=== PATIENT | female | born 1985 | race Caucasian/White ===

== ENCOUNTER 2022-11-12 15:09 | Emergency (ER) | payer BC, OTHER, SELFPAY ==
[2022-11-12] VITALS (8 sets, daily range): BP systolic 99–123; BP diastolic 54–66; PULSE 74–101; RESP 16–26; TEMP 36.7; O2SAT 97–100; BMI 55.6
--- NOTE | 2022-11-12 15:16 | ECG_ITS ---
The [facility] Test Date: 2022-11-12 Pat Name: TALHA SINGLETON Department: Room: - Gender: Female [employer]: : 1985 Requested By: [id number] Order Number: [id number] Reading MD: CORIE KOVACS Measurements Intervals [place] Rate: 91 P: 69 VT: 144 QRS: 77 QRSD: 96 T: -30 QT: 308 QTc: 357 Interpretive Statements 1100 Sinus rhythm 2420 RSR (QR) in lead V1/V2, consistent with right ventricular conduction delay 4068 Nonspecific [place] abnormality 8102 Low QRS voltage in chest leads 8305 Short QTc interval 9150 abnormal ECG No previous ECG available for comparison Electronically Signed On 11-13-2022 7:10:02 EDT by CORIE KOVACS
--- NOTE | 2022-11-12 15:18 | ED_ITS ---
HPI - General Adult General Chief complaint: Skin/Abscess/Foreign Body Stated complaint: ALLERGIC REACTION Time Seen by Provider: 11/12/22 15:16 History of Present Illness HPI narrative: patient is a 37-year-old female presents to the emergency department by ambulance for the evaluation of a bee sting ALLERGY. Patient was stung by a bee approximately thirty minutes ago in the back of the left ankle. She states she has no known previous bee sting ALLERGY. EMS was contacted and they gave the patient 0.5 mg of epinephrine, 125 mg IV Solu-Medrol, 50 mg IV Benadryl. Patient arrives with improvement of redness although she is jittery and shaking on arrival. She states she still feels tightness in her chest. She has not had difficulty breathing or wheezing. She is not concerned for . Related Data Home Medications Medication Instructions Recorded Confirmed buspirone 5 mg tablet 5 mg PO BID 11/12/22 11/12/22 hydroxyzine HCl 10 mg tablet 10 mg PO TID PRN anxiety 11/12/22 11/12/22 risperidone 0.25 mg tablet 0.25 mg PO QPM 11/12/22 11/12/22 risperidone 0.5 mg tablet 0.5 mg PO QPM 11/12/22 11/12/22 Previous Rx's Medication Instructions Recorded famotidine 20 mg tablet (Pepcid) 20 mg PO BID #10 tabs 11/12/22 hydroxyzine HCl 25 mg tablet 25 mg PO Q6H PRN itching #20 tabs 11/12/22 methylprednisolone 4 mg tablets in See Rx Instructions .Route 11/12/22 a dose pack (Medrol (Jose David)) .COMPLEX #21 ea ondansetron 4 mg disintegrating 4 mg PO Q6H PRN nausea and 11/12/22 tablet vomiting #12 tabs Allergies Allergy/AdvReac Type Severity Reaction Status Date / Time bee venom protein (honey bee) Allergy Severe Verified 11/12/22 15:20 levofloxacin [From Levaquin] Allergy Severe Verified 11/12/22 15:12 Review of Systems ROS Constitutional Denies: fever or chills Ears, nose, mouth, and throat Denies: throat pain or neck pain Cardiovascular Reports: chest pain Respiratory Denies: shortness of breath, cough or wheezing Gastrointestinal Denies: nausea or vomiting Genitourinary Denies: painful urination Integumentary/Breast Reports: rash and redness Allergic/Immunologic Reports: hives Exam Narrative Exam Narrative: Gen.: Awake, alert, in no distress, mildly shaky and anxious Head: Normocephalic, atraumatic ENT: Moist mucous membranes, airway widely open and patent with uvula midline. No trismus or drooling. Clear speech. No noted swelling of the lips or tongue Respiratory: No respiratory distress, lungs clear bilaterally, no wheezing or stridor Cardio: Regular rate and rhythm Gastrointestinal: Abdomen is soft, nondistended and nontender to palpation Extremities: Moves extremities equally, bee sting noted to the left posterior ankle with mild surrounding erythema Psych: Normal mood and affect Neuro: No focal neuro deficit Skin: Warm, dry, intact; no significant hives noted although the patient does have mild swelling of the eyelids Constitutional Vital Signs, click to edit/add: Last Vital Signs Temp 98.1 F 11/12/22 15:12 Pulse 74 11/12/22 16:30 Resp 18 11/12/22 16:30 BP 99/54 L 11/12/22 16:30 Pulse Ox 97 11/12/22 16:30 O2 Del Method Room Air 11/12/22 15:12 Course Vital Signs Vital signs: Vital Signs Temperature 98.1 F 11/12/22 15:12 Pulse Rate 101 H 11/12/22 15:12 Respiratory Rate 20 11/12/22 15:12 Blood Pressure 118/64 11/12/22 15:12 Pulse Oximetry 100 11/12/22 15:12 Oxygen Delivery Method Room Air 11/12/22 15:12 Temperature 98.1 F 11/12/22 15:12 Pulse Rate 74 11/12/22 16:30 Respiratory Rate 18 11/12/22 16:30 Blood Pressure 99/54 L 11/12/22 16:30 Pulse Oximetry 97 11/12/22 16:30 Oxygen Delivery Method Room Air 11/12/22 15:12 Medical Decision Making [facility] Narrative Medical decision making narrative: patient was treated with IV fluids, Pepcid and was kept on cardiac monitoring for over ninety minutes on arrival to the Emergency Room. She had improvement of tachycardia, no worsening of tachycardia or shortness of breath. She had improvement of her urticaria and facial swelling. She does have minimal itching and eyelid edema at time of discharge but overall is improved. She has normal blood pressure and heart rate at time of discharge. She will be prescribed hydr oxyzine, Medrol Dosepak, Pepcid, Zofran for home. She is encouraged follow-up closely with her PCP and return to the Emergency Room if symptoms change or worsen. Medical Records Medical records reviewed: Yes I reviewed the patient's medical records ECG Data Attestation: I personally reviewed and interpreted this ECG as follows: (normal sinus rhythm at a rate of ninety-one, no acute ST elevation or ectopy. EKG reviewed by attending physician.) Discharge Plan Discharge Chief Complaint: Skin/Abscess/Foreign Body Clinical Impression: Allergic reaction to bee sting, Urticaria Patient Disposition: Home, Self-Care Time of Disposition Decision: 16:42 Condition: Good Prescriptions / Home Meds: New methylprednisolone [Medrol (Jose David)] 4 mg tablets,dose pack See Rx Instructions .ROUTE .COMPLEX Qty: 21 0RF Rx Instructions: Taper as directed hydroxyzine HCl 25 mg tablet 25 mg PO Q6H PRN (Reason: itching) Qty: 20 0RF famotidine [Pepcid] 20 mg tablet 20 mg PO BID Qty: 10 0RF ondansetron 4 mg tablet,disintegrating 4 mg PO Q6H PRN (Reason: nausea and vomiting) Qty: 12 0RF No Action buspirone 5 mg tablet 5 mg PO BID hydroxyzine HCl 10 mg tablet 10 mg PO TID PRN (Reason: anxiety) risperidone 0.25 mg tablet 0.25 mg PO QPM risperidone 0.5 mg tablet 0.5 mg PO QPM Instructions: Urticaria (ED), Insect Bite or Sting (ED) Stand Alone Forms: Portal Instructions Referrals: Physical Therapy,Template, PT [Primary Care Provider] - 1 week
[2022-11-12] MEDS: FAMOTIDINE/PF 20 MG/2 ML VIAL IV (15:23)
--- NOTE | 2022-11-12 15:30 | PC.NURSE ---
HEAD TO TOE RASH/HIVES S/P WITTNESSED BEE STING. EPI GIVEN BY EMS
== END 2022-11-12 16:59 | disposition home or self-care (01) ==
PROVIDERS: Emergency Provider Emergency Medicine
DX: T63.441A Toxic effect of venom of bees, accidental (unintentional), initial encounter (principal); L50.9 Urticaria, unspecified; Z79.899 Other long term (current) drug therapy
CPT/HCPCS: 93005; 96374; 99285

== ENCOUNTER 2023-02-05 08:03 | Outpatient (OUT) | payer OTHER, SELFPAY ==
--- NOTE | 2023-02-05 08:05 | US_ITS ---
The [address] [address] Patient Name: TALHA SINGLETON MRN: [id number] date: 1985 Sex: F Assigned Patient Location: Current Patient Location: [place] Accession/Order Number: [id number] Exam Date: 02/05/2023 08:05 Report Date: 02/05/2023 09:48 At the request of: VELMA RODGERS Procedure: US pelvis w/ transvaginal EXAM: Pelvic ultrasound HISTORY: . LLQ PAIN, DYSURIA . COMPARISON: None. TECHNIQUE: Transabdominal and transvaginal scanning was performed FINDINGS: The uterus is absent. Right ovary measures 2.4 x 1.3 x 2.5 cm. Color-flow is noted. Resistive indexes 0.6. Follicles are noted. Left ovary measures 3.1 x 3.2 x 3.4 cm. Color-flow is noted. Resistive indexes 0.6. There is a 2.4 x 1.3 cm avascular complicated cyst within the left ovary. There is also a small amount of free fluid surrounding the left ovary. There are several bowel loops within the pelvis. US/US pelvis w/ transvaginal IMPRESSION: 1. Absent uterus. 2. Normal-appearing right ovary. 3. 2.4 x 1.3 cm avascular complicated cyst in the left ovary. Findings would be most consistent with a hemorrhagic cyst. Less likely would be an inflammatory mass or neoplasm. Clinical correlation is suggested. 4. Small amount of fluid surrounding the left ovary. Electronically authenticated by: REAL LOPEZ Date: 02/05/2023 09:48
== END 2023-02-05 08:04 | disposition home or self-care (01) ==
LOC: US 08:04
PROVIDERS: Visit Provider Obstetrics & Gynecology
DX: R10.2 Pelvic and perineal pain (principal); R30.0 Dysuria; N83.202 Unspecified ovarian cyst, left side
CPT/HCPCS: 76830; 76856

== ENCOUNTER 2023-05-10 08:57 | Outpatient (OUT) | payer OTHER, SELFPAY | END 2023-05-10 08:58 | disposition home or self-care (01) | LOC: PST 08:58 | PROVIDERS: Visit Provider Obstetrics & Gynecology | DX: Z01.818 Encounter for other preprocedural examination (principal); R10.2 Pelvic and perineal pain; R10.9 Unspecified abdominal pain ==

== ENCOUNTER 2023-05-23 06:12 | Day surgery (SDC) | payer OTHER, SELFPAY ==
[2023-05-10 09:28] VITALS: BP 105/66; PULSE 89; RESP 16; TEMP 36.3; O2SAT 95; BMI 26.5
[2023-05-23] VITALS (9 sets, daily range): BP systolic 95–118; BP diastolic 52–81; PULSE 58–86; RESP 14–18; TEMP 36.1–36.3; O2SAT 95–100; BMI 26.2
--- OUTSIDE RECORDS SUMMARY | 2023-05-23 06:15 | XMS_ITS | CCD ---
Author Name Unknown Address [address] [place] [address] Organization [facility] Care Team Providers Care Health Policy Nurse Name Role Phone MEMO WOOD Admitting Unavailable NINA, MEMO Attending Unavailable MEMO WOOD Consulting Unavailable JENNIFER, DR SAVANNAH Underwood Primary Care Unavailable KARASIK, DR ETIENNE Consulting Unavailable JENNIFER, DR SAVANNAH [place]wood Primary Care Unavailable CRYSTAL, DR ETIENNE Admitting Unavailable CRYSTAL, DR ETIENNE Attending Unavailable DARIA, DR COLBY Attending Unavailable DARIA, DR COLBY Admitting Unavailable TERESO, DR REAL Mccain Consulting Unavailable AMANDAESTANNABELLE, DR SAVANNAH Underwood Primary Care Unavailable DARIA, DR COLBY Consulting Unavailable PAM, TIBURCIO Consulting Unavailable Sumeet VÁSQUEZ Primary Care Physician SAVANNAH RODRIGUEZ Primary Care Physician [phone] JOHN HENSON Attending Unavailab Sumeet Barkley Referring Unavailable Lowell MAYS Admitting Unavailable Lowell MAYS Attending Unavailable Lowell MAYS Referring Unavailable Lowell MAYS Attending Unavailable JOHN HENSON Attending UnavailEamon Ya Attending Unavailab Eamon Del Cid Admitting Unavailab [facility] [place] Primary Care Unavailable Allergies Allergy Classification Reported Allergen(s) Allergy Type Date of Onset Reaction(s) Facility (2 sources) levoFLOXacin; Translations: [Levaquin] Drug Allergy 3 [facility] Repository (3 sources) Bee/Wasp/Ant venom; Translations: [Bee Stings] Propensity to adverse reactions to substance Swelling (finding) [facility] (2 sources) levoFLOXacin; Translations: [levofloxacin] Drug Allergy [facility] (1 source) levoFLOXacin Drug Allergy [facility] Repository Medications Current Medications Medication Drug Class(es) Dates Sig (Normalized) Sig (Original) busPIRone hydrochloride 7.5 mg oral tablet (2 sources) Start: 03-27-2023 busPIRone 7.5 mg oral tablet Refills(s) 0 Start Date: 03/27/23 Status: Ordered phenazopyridine hydrochloride 200 mg oral tablet (1 source) Start: 03-27-2023 End: 03-30-2023 Pyridium 200 mg Tab 200 mg = 1 tab(s), Oral, TIDPC, start taking following cystoscopy procedure, X 3 day(s), # 9 tab(s), Refills(s) 0, Pharmacy: [facility]/pharmacy #[id number], 157, cm, 03/27/23 10:11:00 EST, Height/Length Dosing, 68, kg, 03/27/23 10:11:00 EST, Weight Dosing Start Date: 03/27/23 Stop Date: 03/30/23 Status: Ordered risperiDONE 0.5 mg oral tablet (2 sources) Atypical Antipsychotic Start: 03-27-2023 take 1 tablet by mouth twice daily risperidone 0.5 mg Tab 0.5 mg = 1 tab(s), Oral, BID, # 180 tab(s), Refills(s) 0 Start Date: 03/27/23 Status: Ordered Completed/Discontinued Medications Medication Drug Class(es) Dates Sig (Normalized) Sig (Original) cephalexin 500 mg oral capsule (2 sources) Cephalosporin Antibacterial Start: 04-02-2023 take 1 capsule by mouth once daily Keflex 500 mg Cap 500 mg = 1 cap(s), Oral, BID, Take 1 cap day prior to procedure and 1 cap day of procedure - afterwards, # 2 cap(s), Refills(s) 0, Pharmacy: [facility]/pharmacy #[id number], 157, cm, 03/27/23 10:11:00 EST, Height/Length Dosing, 68, kg, 03/27/23 10:11:00 EST, Weight Dosing Start Date: 04/30/23 Status: Ordered Problems Active Problems Problem Classification Problem Date Documented Date Episodic/Chronic Abdominal pain (7 sources) Unspecified abdominal pain; Translations: [Pain in pelvis] Onset: 06-14-2021 Episodic Allergic reactions (2 sources) Allergic reaction; Translations: [Allergic Reaction] Onset: 11-26-2022 Episodic Anxiety disorders (4 sources) Anxiety disorder, unspecified; Translations: [ANXIETY DISORDER UNSPECIFIED] Onset: 11-30-2021 Chronic Biliary tract disease (2 sources) Gallstone 03-27-2023 Episodic Calculus of urinary tract (5 sources) History of calculus of kidney; Translations: [Personal history of urinary calculi] Onset: 03-27-2023 Episodic Genitourinary symptoms and ill-defined conditions (4 sources) Sensation as if bladder still full; Translations: [Feeling of incomplete bladder emptying] Onset: 03-27-2023 Episodic Immunizations and screening for infectious disease (1 source) Encounter for screening for human papillomavirus (HPV); Translations: [ENC SCREENING HUMAN PAPILLOMAVIRUS] Onset: 01-24-2022 Episodic Mood disorders (2 sources) Bipolar disorder 03-27-2023 Chronic Noninfectious gastroenteritis (2 sources) Colitis 03-27-2023 Episodic Other diseases of bladder and urethra (1 source) Detrusor overactivity; Translations: [Overactive bladder] Onset: 03-27-2023 Chronic Other diseases of bladder and urethra (2 sources) Overactive bladder 03-27-2023 Chronic Other ear and sense organ disorders (2 sources) Hearing loss 03-27-2023 Chronic Other female genital disorders (1 source) Other specified noninflammatory disorders of vagina; Translations: [OTH SPEC NONINFLAMMATORY D/O VAGINA] Onset: 01-24-2022 Episodic Other screening for suspected conditions (not mental disorders or infectious disease) (4 sources) Encounter for screening for malignant neoplasm of cervix; Translations: [ENC SCREENING MALIG NEOPLASM CERV] Onset: 01-23-2022 Episodic Ovarian cyst (2 sources) Cyst of ovary 03-27-2023 Episodic Screening and history of mental health and substance abuse codes (3 sources) H/O: Disorder; Translations: [Personal history of nicotine dependence] Onset: 03-27-2023 Episodic Substance-related disorders (2 sources) Nicotine dependence, other tobacco product, uncomplicated; Translations: [Nicotine dependence, cigarettes, uncomplicated] Onset: 06-15-2021 Chronic Unclassified (2 sources) Finding of sensation of bladder 03-27-2023 Viral infection (2 sources) Genital herpes simplex 03-27-2023 Chronic Past or Other Problems Problem Classification Problem Date Documented Da te Episodic/Chronic Other aftercare (1 source) Other longterm (current) drug therapy; Translations: [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] Onset: 06-15-2021 Episodic Residual codes; unclassified (1 source) Acquired absence of both cervix and uterus; Translations: [ACQUIRED ABSENCE BOTH CERVIX AND UTERUS] Onset: 06-15-2021 Episodic Results Test Name Value Interpretation Reference Range Facility Consent for Procedure/Surger yon 05-02-2023 Consent for Procedure/Surgery [id number]# 1.00TIFF [facility] Consent for Treatmenton 04-06 Consent for Treatment [id number]#1 .00TIFF [facility] Inpatient Patient Summaryon 05-02-2023 Inpatient Patient Summary [address] [address] Clinical Summary Person Information Name: TALHA SINGLETON Age: 37 Years : 1985 Sex: Female PCP: SAVANNAH RODRIGUEZ MD Marital Status: Race: Other Race Ethnicity: Non- or Language: Czech Visit Id: Visit Reason: OVER ACTIVE BLADDER, INCOMPLETE BLADDER EMPTY Speciality: Acuity: Enc Type: Outpatient Med Service: Surgery Arrival: 05/02/2023 12:09:38 Discharge: Dispo Type: Address: [address] [place] [id number] Provider Notes: Diagnosis: Problems Active Ovarian cyst Former smoker OAB (overactive bladder) Feeling of incomplete bladder emptying History of kidney stones Kidney stone Genital herpes Gall stones Colitis Deafness Bipolar affective Dysuria Pelvic pain Smoking Status: Functional Status: Sensory Deficits: History of Falls: Mobility Assistance Prior to Admission: ADLs: Current Level of Assistance for Self-Care/Mobility: Cognitive Status: Allergies Bee Stings (Swelling) Levaquin Laboratory or Other Results This Visit (last charted value for your 05/02/2023 visit) No Laboratory or Other Results This Visit Measurements: Height: 157 cm Weight: Blood Pressure: Not Valued / Not Valued BMI: Procedures No Procedures Documented Immunizations No Immunizations Documented This Visit Final Med List: busPIRone (busPIRone 7.5 mg oral tablet) cephalexin (Keflex 500 mg Cap) 1 Capsules By Mouth 2 times a day. Take 1 cap day prior to procedure and 1 cap day of procedure - afterwards. Refills: 0. cephalexin (Keflex 500 mg Cap) 1 Capsules By Mouth 2 times a day. Take 1 cap day prior to procedure and 1 cap day of procedure - afterwards. Refills: 0. risperidone (risperidone 0.5 mg Tab) 1 Tablets By Mouth 2 times a day. Care Team Members: Attending Physician: Lowell MAYS MD Consulting Physician: Referring Physician: Lowell MAYS MD Follow up: With: Address: When: ELPIDIO HENSON [address] [place] [phone] [facility] () Within 6 weeks Comments: Call for followup appointment Type Location Start Finish [facility] URO Office Visit [facility] [place] 07/16/2023 9:00 AM 07/16/2023 9:15 AM Confirmed Patient Education Information: EU - Cystoscopy with Urethral Dilation Discharge Instructions (Custom) [facility] IntraOperative Documentson 1 07-03-2022 IntraOperative Documents [id number] 1.00TIFF [facility] Main OR Intraoperative Recor don 05-02-2023 Main OR Intraoperative Record IntraOp Document Type FTURO Summary Primary Physician: Lowell MAYS MD Finalized Date/Time: 05/02/23 13:28:39 Pt. Name: TALHA SINGLETON/Sex: 1985 Female Med Rec #: [id number] Physician: Lowell MAYS MD Financial #: [id number] Pt. Type: O Room/Bed: / Admit/Disch: 05/02/23 12:09:38 - Institution: Case Times FTURO Entry 1 Patient Times In Room 05/02/23 13:01:00 Out Room 05/02/23 13:30:00 Procedure Times Start 05/02/23 13:18:00 Stop 05/02/23 13:26:00 Anesthesia Times Last Modified By: Zeenat NICHOLAS, Shilpi Key 05/02/23 13:27:17 Case Attendance FTURO Entry 1 Entry 2 Entry 3 Case Attendee DAVON CLAUDIO, Lowell Epperson RN, Rock Barron Role Performed Surgeon - Primary Wax Cutter - Primary Scrub - Primary Time In 05/02/23 13:01:00 05/02/23 13:01:00 05/02/23 13:01:00 Time Out 05/02/23 13:30:00 05/02/23 13:30:00 05/02/23 13:30:00 Procedure CYSTOSCOPY LOCAL WITH CYSTOSCOPY LOCAL WITH CYSTOSCOPY LOCAL WITH URETHRAL DILATION(.) URETHRAL DILATION(.) URETHRAL DILATION(.) Comments Last Modified By: Zeenat NICHOLAS, Shilpi Epperson RN, Shilpi Epperson RN, Shilpi Key 05/02/23 Cassi Key 05/02/23 Cassi Key 05/02/23 13:27:18 13:27:18 13:27:18 Surgical Procedures FTURO Entry 1 Procedure Description Procedure CYSTOSCOPY LOCAL WITH Modifiers . URETHRAL DILATION Surgeon Description CYSTOSCOPY LOCAL WITH URETHRAL DILATION Primary Procedure Yes Primary Surgeon Lowell MAYS MD Start 05/02/23 13:18:00 Stop 05/02/23 13:26:00 Anesthesia Type Local Surgical Service Urology Wound Class 2 - Clean-Contaminated Last Modified By: Shilpi Epperson RN 05/02/23 13:27:10 General Case Data FTURO Pre-Care Text: Classifies surgical wound, implements aseptic technique, initiates traffic control Entry 1 Case Information OR URO 1 FT Case Level None Wound Class 2 - Clean-Contaminated Specialty Urology Preop Diagnosis OVERACTIVE BLADDER, Postop Same As Preop Yes INCOMPLETE BLADDER EMPTYING, URETHRAL STRICTURE Postop Diagnosis OVERACTIVE BLADDER, Outcomes Met? Yes INCOMPLETE BLADDER EMPTYING, URETHRAL STRICTURE Last Modified By: Zeenat NICHOLAS, Shilpi Key 05/02/23 13:17:29 Post-Care Text: The patient is free from signs and symptoms of infection EU IntraOp - FTURO Pre-Care Text: Implements protective measures prior to operative or invasive procedure, confirms identity before the operative or invasive procedure, verifies operative procedure, surgical site, and laterality Entry 1 EU Perioperative Protocols Procedure(s) CYSTOSCOPY LOCAL WITH Patient Identity Birthday, ID Band URETHRAL DILATION(.) Verified (select at Check, Patient least 2): Participation Consents / H and P HandP, Surgery/Procedure Operative Site N/A Verified Consent Marking Verified Surgical Site Yes Laterality Verified n/a Verified Procedure Verified Yes Correct Patient Yes Position Verified Availability Equipment, Medication Time Out Lowell MAYS MD, Verified (If Participants Shilpi Epperson RN Applicable) Naya Cordova Adam A Time Out Complete 05/02/23 13:16:00 Allergies Reviewed? Yes Allergies Reviewed Self/Patient With Body Position Low Lithotomy Prep Area PERINEAL AREA Prep Agents Betadine Solution Skin. Condition Unable to Visualize Description PARTIALLY CLOTHED Additional None Specimens Collected Vitals - EU Blood Pressure 118/76 Pulse 72 bpm Respirations 16 br/min SPO2 97 % IandO - EU Outcomes Met? Yes Last Modified By: Shilpi Epperson RN 05/02/23 13:16:15 Post-Care Text: The patient is free from signs and symptoms of injury caused by extraneous objects Sign Out FTURO Entry 1 Before Patient Leaves OR Nurse verbally Yes Nurse verbally Yes confirms with the confirms with the team the name of team that the procedure(s) instrument, sponge, recorded and needle counts are correct (or N/A) Nurse verbally n/a Nurse verbally Yes confirms with the confirms with the team how the team whether there specimen is labeled are any equipment (including patient problems to be name), if applicable addressed Sign Out Complete 05/02/23 13:27:00 Last Modified By: Shilpi Epperson RN 05/02/23 13:27:08 Case Comments Finalized By: Shilpi Epperson RN Document Signatures Signed By: Shilpi Epperson RN 05/02/23 13:27 Shilpi Epperson RN 05/02/23 13:28 [facility] Main OR Preoperative Recordo n 05-02-2023 Main OR Preoperative Record Holding Area Document Type FTURO Summary Primary Physician: Lowell MAYS MD Finalized Date/Time: 05/02/23 12:31:22 Pt. Name: TALHA SINGLETON /Sex: 1985 Female Med Rec #: [id number] Physician: Lowell MAYS MD Financial #: [id number] Pt. Type: O Room/Bed: / Admit/Disch: 05/02/23 12:09:38 - Institution: Case Times Holding FTURO Pre-Care Text: Verifies consent for planned procedure, identifies individual values and wishes concerning care, includes family members in perioperative teaching Secures patient's records' belongings, and valuables, maintains patient's dignity and privacy, and maintains patient confidentiality Entry 1 In Holding 05/02/23 12:21:00 Outcomes Met? Yes Last Modified By: Jeanette Rodríguez RN 05/02/23 12:23:07 Post-Care Text: The patient participates in decisions affecting his or her perioperative plan of care The patient's right to privacy is maintained Surgery Checklist FTURO Entry 1 Patient Birthday, ID Band Procedure History and Physical, Identification: Check, Patient Verification: Surgical Consent, With Participation Patient NPO after Midnight: n/a Personal Items: Glasses, Jewelry Personal Items RING X 2; GLASSES Limitations: UP AD RAYMOND Comment: Complaints of Pain: Yes Pain Comment: - CYST TO LEFT OVARY Skin Integrity Dry, Warm Vitals - EU Blood Pressure 118/76 Pulse 72 bpm Respirations 16 br/min SPO2 97 % Additional None RN Reviewed Yes Specimens Collected Last Modified By: Jeanette Rodríguez RN 05/02/23 12:26:02 Finalized By: Jeanette Rodríguez RN Document Signatures Signed By: Jeanette Rodríguez RN 05/02/23 12:26 Jeanette Rodríguez RN 05/02/23 12:29 Jeanette Rodríguez RN 05/02/23 12:31 [facility] Operative Reporton Operative Report Patient: TALHA SINGLETON Age: 37 years Sex: Female : 1985 Associated Diagnoses: None Author: Lowell MAYS MD Procedure Operative Information Details: Date/ Time: 05/02/2023 13:30:00. Pre-Op Dx: Unspecified urethral stricture, female ([id number] N35.92, Working, Medical), Urinary retention ([id number] R33.9, Working, Medical). Post-Op Dx: Same. Anesthesia Type: Local. Procedure: Local Cystoscopy with Urethral Dilation. Complications: None. Risks/Benefits/Inform ed Consent: Surgical risks, benefits, details of the procedure have been explained to the patient, Full informed consent has been obtained. Intraoperative Information Prepped: Patient is brought back to the endoscopy suite, Patient is placed in modified dorso/lithotomy position, Patient prepped in the usual fashion with Betadine solution, 2% Xylocaine Jelly is placed per Urethra, After waiting several minutes the Cystoscope is introduced. The Urethra is: Tight, Tight at 16 Fr. She has a very minimal beginning of a urethral prolapse posteriorly. There is no evidence of a urethral cyst or anything obstructive within the urethra itself.. The Bladder is: Normal, Trabeculated Mild (1), No tumors, no stones. No suspicious lesions., Mild urinary retention. The ureteral orifices: Show efflux of clear urine. The Urethra was dilated to: 30 Lithuanian w/ sounds, This causes minimal bleeding.. Devices Implanted: None. Removal: Cystoscope is removed, The patient tolerated it well. Postoperative Information Discharge: Patient is discharged home with antibiotic coverage, Follow up arranged, Follow up with Sally Henson PA-C in about six weeks. . [facility] Comment on above: Result Comment: Elec tronically Signed By: Lowell MAYS MD\.br\Date and Time Signed: 05/02/23 13:35 EST Outpatient Surgery Discharge Instructionon 05-02-2023 Outpatient Surgery Discharge Instruction [place] [address] Patient Discharge Instructions PERSON INFORMATION Name: TALHA SINGLETON Date of : 1985 Current Date: 05/02/2023 13:30:29 PHYSICIANS Admitting Physician: Lowell MAYS MD Comment: Discharge Diagnosis: TALHA SINGLETON has been given the following list of follow-up instructions, prescriptions, and patient education materials: IF UNABLE TO CONTACT YOUR PHYSICIAN AND YOU FEEL IT IS AN EMERGENCY, GO TO THE NEAREST EMERGENCY ROOM OR CALL 911 Follow up: With: Address: When: ELPIDIO HENSON [address] [place] [phone] [facility] (1) Within 6 weeks Comments: Call for followup appointment Type Location Start [facility] URO Office Visit [facility] [place] 07/16/2023 9:00 AM 07/16/2023 9:15 AM Confirmed Comment: PATIENT EDUCATION INFORMATION Instructions: Cystoscopy with Urethral Dilation ? Voiding after the procedure: there may be some pain, urethral bleeding, burning, urgency, frequency and blood tinged urine following the procedure. These symptoms usually resolve within 2-5 days. Drink the amount of fluid it takes to keep the urine pink to yellow or clear in color. Drinking enough water and fluids will help to ease any discomfort after your procedure. ? If you are having problems that seem out of the ordinary, please call. ? If unable to contact your physician and you feel it is an emergency, go to the nearest emergency room or call 911 ? Diet ? you may resume your normal diet. ? Activity ? you may resume your normal activities ? Call if you have a fever over 100 degrees ARELI Quiroz SHAWNTE, have received the attached patient education materials/instruction s and have verbalized understanding: May we do a follow up call? Yes No I was present when discharge instructions were given Patient Signature Date Clinican/Nurse Signature Date You may receive a survey from [employer] asking you to rate your care experience. Your feedback is important and will help us understand what we do well and how we can improve the quality of care we provide to you, your loved ones and our community. It?s an honor to serve you. Thank you for choosing [facility] Provider Letteron 04-30-2023 Provider Letter April 30, 2023 TALHA SINGLETON [address] [place] [address] : 1985 To Whom It May Concern, Please excuse above patient from work. Date of Illness: From: 04/19/23 To: 05/07/23 May Return to Work On: 05/07/23 Restrictions: None Sincerely, Lian Hummel CMA/ Dr Lowell Mays MD [facility] Comment on above: Other Comment: WRONG PT! Ambulatory Visit Summaryon 1 05-27-2022 Ambulatory Visit Summary TALHA SINGLETON :1985 Visit Date:03/27/2023 Ambulatory Visit Instructions Your Diagnosis Feeling of incomplete bladder emptying OAB (overactive bladder) History of kidney stones Former smoker Ovarian cyst Tests Performed Urnls Dip Stick Auto w/o Microscopy POC 73864 Your Care Team Attending Physician - ELPIDIO HENSON PA-C Primary Care Physician - Sumeet VÁSQUEZ DO Referring Physician - Sumeet VÁSQUEZ DO This Is Your Medications List Contact prescribing physician if questions or concerns busPIRone (busPIRone 7.5 mg oral tablet) risperidone (risperidone 0.5 mg Tab) Procedures Performed Hysterectomy (2019), Colonoscopy, Hysterectomy, Tonsillectomy. Discharge Vitals Temperature (Temporal Artery) 36.2 ?C Heart Rate (Peripheral) 74 Blood Pressure 128/84 Height 157 cm Height 62 in Weight 68 kg Weight 149.6 lb BMI 27.59 What to do next You Need to Schedule the Following Appointments Follow Up with NATIVIDAD LOPEZ, EUGENIO REYNOLDS When: Comments: sched cysto/poss UD Where: [address] [place] [id number] Medications What How Much When Instructions Unchanged busPIRone (busPIRone 7.5 mg oral tablet) Contact prescribing physician if questions or concerns Unchanged risperidone (risperidone 0.5 mg Tab) 1 Tablets By Mouth 2 times a day Contact prescribing physician if questions or concerns Test Results Urnls Dip Stick Auto w/o Microscopy POC 77510 (03/27/2023) Bilirubin Urine Dipstick - Negative Blood Urine Dipstick - Negative Glucose Urine Dipstick - Negative Ketones Urine Dipstick - Negative Leukocytes Urine Dipstick - Negative Nitrite Urine Dipstick - Negative Protein Urine Dipstick - Negative Specific Cecil Urine Dipstick - <=1.005 Urine Appearance Urine Dipstick - Clear Urine Color Urine Dipstick - Light yellow Urobilinogen Urine Dipstick - Normal 0.2-1 EU/dl pH Urine Dipstick - 6 Allergies Levaquin Bee Stings (Swelling) Problems Ongoing - Any problem that you are currently receiving treatment for. Bipolar affective Colitis Deafness Dysuria Feeling of incomplete bladder emptying Former smoker Gall stones Genital herpes History of kidney stones Kidney stone OAB (overactive bladder) Ovarian cyst Pelvic pain Patient Survey You may receive a survey via text or e-mail asking about your office visit. Please share your experience with us by completing your survey. We appreciate your feedback and thank you for choosing us for your care. Education Materials Cystoscopy Cystoscopy is a procedure that is used to help diagnose and sometimes treat conditions that affect the lower urinary tract. The lower urinary tract includes the bladder and the urethra. The urethra is the tube that drains urine from the bladder. Cystoscopy is done using a thin, tube-shaped instrument with a light and camera at the end (cystoscope). The cystoscope may be hard or flexible, depending on the goal of the procedure. The cystoscope is inserted through the urethra, into the bladder. Cystoscopy may be recommended if you have: ? Urinary tract infections that keep coming back. ? Blood in the urine (hematuria). ? An inability to control when you urinate (urinary incontinence) or an overactive bladder. ? Unusual cells found in a urine sample. ? A blockage in the urethra, such as a urinary stone. ? Painful urination. ? An abnormality in the bladder found during an intravenous pyelogram (IVP) or CT scan. Cystoscopy may also be done to remove a sample of tissue to be examined under a microscope (biopsy). Tell a health care provider about: ? Any allergies you have. ? All medicines you are taking, including vitamins, herbs, eye drops, creams, and taha-yaf-jlupucc medicines. ? Any problems you or family members have had with anesthetic medicines. ? Any blood disorders you have. ? Any surgeries you have had. ? Any medical conditions you have. ? Whether you are or may be . What are the risks? Generally, this is a safe procedure. However, problems may occur, including: ? Infection. ? Bleeding. ? Allergic reactions to medicines. ? Damage to other structures or organs. What happens before the procedure? Medicines Ask your health care provider about: ? Changing or stopping your regular medicines. This is especially important if you are taking diabetes medicines or blood thinners. ? Taking medicines such as aspirin and ibuprofen. These medicines can thin your blood. Do not take these medicines unless your health care provider tells you to take them. ? Taking rbli-yic-dkwfdvj medicines, vitamins, herbs, and supplements. Tests You may have an exam or testing, such as: ? X-rays of the bladder, urethra, or kidneys. ? CT scan of the abdomen or pelvis. ? Urine tests to check for signs of infection. (more content not included)... Normal [facility] Consultation Noteon 03-27-20 Consultation Note [id number]# 1.00TIFF Normal [facility] Formson 03-27-2023 Forms [id number]#1. 00TIFF [facility] Patient Educationon 03-27-20 Patient Education Obstetrics and Gynecology Overactive Bladder, Adult Overactive bladder is a condition in which a person has a sudden and frequent need to urinate. A person might also leak urine if he or she cannot get to the bathroom fast enough (urinary incontinence). Sometimes, symptoms can interfere with work or social activities. What are the causes? Overactive bladder is associated with poor nerve signals between your bladder and your brain. Your bladder may get the signal to empty before it is full. You may also have very sensitive muscles that make your bladder squeeze too soon. This condition may also be caused by other factors, such as: ? Medical conditions: ? Urinary tract infection. ? Infection of nearby tissues. ? Prostate enlargement. ? Bladder stones, inflammation, or tumors. ? Diabetes. ? Muscle or nerve weakness, especially from these conditions: ? A spinal cord injury. ? Stroke. ? Multiple sclerosis. ? Parkinson's disease. ? Other causes: ? Surgery on the uterus or urethra. ? Drinking too much caffeine or alcohol. ? Certain medicines, especially those that eliminate extra fluid in the body (diuretics). ? Constipation. What increases the risk? You may be at greater risk for overactive bladder if you: ? Are an older adult. ? Smoke. ? Are going through menopause. ? Have prostate problems. ? Have a neurological disease, such as stroke, dementia, Parkinson's disease, or multiple sclerosis (MS). ? Eat or drink alcohol, spicy food, caffeine, and other things that irritate the bladder. ? Are overweight or obese. What are the signs or symptoms? Symptoms of this condition include a sudden, strong urge to urinate. Other symptoms include: ? Leaking urine. ? Urinating 8 or more times a day. ? Waking up to urinate 2 or more times overnight. How is this diagnosed? This condition may be diagnosed based on: ? Your symptoms and medical history. ? A physical exam. ? Blood or urine tests to check for possible causes, such as infection. You may also need to see a health care provider who specializes in urinary tract problems. This is called a urologist. How is this treated? Treatment for overactive bladder depends on the cause of your condition and whether it is mild or severe. Treatment may include: ? Bladder training, such as: ? Learning to control the urge to urinate by following a schedule to urinate at regular intervals. ? Doing Kegel exercises to strengthen the pelvic floor muscles that support your bladder. ? Special devices, such as: ? Biofeedback. This uses sensors to help you become aware of your body's signals. ? Electrical stimulation. This uses electrodes placed inside the body (implanted) or outside the body. These electrodes send gentle pulses of electricity to strengthen the nerves or muscles that control the bladder. ? Women may use a plastic device, called a pessary, that fits into the vagina and supports the bladder. ? Medicines, such as: ? Antibiotics to treat bladder infection. ? Antispasmodics to stop the bladder from releasing urine at the wrong time. ? Tricyclic antidepressants to relax bladder muscles. ? Injections of botulinum toxin type A directly into the bladder tissue to relax bladder muscles. ? Surgery, such as: ? A device may be implanted to help manage the nerve signals that control urination. ? An electrode may be implanted to stimulate electrical signals in the bladder. ? A procedure may be done to change the shape of the bladder. This is done only in very severe cases. Follow these instructions at home: Eating and drinking ? Make diet or lifestyle changes recommended by your health care provider. These may include: ? Drinking fluids throughout the day and not only with meals. ? Cutting down on caffeine or alcohol. ? Eating a healthy and balanced diet to prevent constipation. This may include: ? Choosing foods that are high in fiber, such as beans, whole grains, and fresh fruits and vegetables. ? Limiting foods that are high in fat and processed sugars, such as fried and sweet foods. Lifestyle ? Lose weight if needed. ? Do not use any products that contain nicotine or tobacco. These include cigarettes, chewing tobacco, and vaping devices, such as e-cigarettes. If you need help quitting, ask your health care provider. General instructions ? Take txej-cvt-urpinms and prescription medicines only as told by your health care provider. ? If you were prescribed an antibiotic medicine, take it as told by your health care provider. Do not stop taking the antibiotic even if you start to feel better. ? Use any implants or pessary as told by your health care provider. ? If needed, wear pads to absorb urine leakage. ? Keep a log to track how much and when you drink, and when you need to urinate. This will help your health care provider monitor yo (more content not included)... Normal [facility] RAD - Ultrasound Reporton RAD - Ultrasound Report [id number]# 1.00TIFF Normal [facility] Screenson 03-27-2023 Screens [id number]# 1.00TIFF Normal 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 Sumeet Vásquez DO for urinary retention and hx of kidney stones. Last stone was passed was 2009 she thinks Never seen in our office before. CT AP wo con done 08/24/20 at [facility]. CT AP wo con and KUB done 06/14/21 at [facility]. US pelvis w/ transvaginal done 02/05/23 at [facility]. Has had a cyst for 3 years on left ovary- She was told it would absorb in her body.- Dr. Chandler She had to push to start urinating, only lasted a week just started a week ago PVR 165 Dysuria: denies Incomplete bladder emptying: most times she does not feel empty Hematuria: denies visible blood Frequency: every 1-2 hours Urgency: she can not hold it most of the time Nocturia: 1-2x nightly Stream: denies hesitation, normal stream Leaking: _sometimes Post void dripping: yes (then she feels like bubbling at the end of urinating) Wearing pads/ Depends: denies, but she changes her underwear 1-2 times daily Urge incontinence: sometimes Stress incontinence: denies all the time Incontinence without Sensory Awareness: not aware all the time Abdominal pain: When she urinates her left abdominal hurts... started about a years ago off and on Flank pain: _constant pain on left side Sexual complaints: _denies History of Present Illness staff HPI reviewed and agree. Review of Systems PHQ Score Initial Depression Screen Score: 0 SCORE no fever, chills, malaise, myalgia. no rash/lesions. no chest pain, palpitations, or SOB. no abdominal pain, nausea, vomiting. 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 1. History of urethral cyst (Z87.448: Personal history of other diseases of urinary system) reports she had it removed/repaired about 5-10 yrs ago. thinks it has recurred. wondering if this is contributing to her urinary sx. on PE she has a 2cm ovoid soft area on the posterior urethra, nontender evaluate during cysto Ordered: E&M of New Patient Moderate 45-59 Min 51875 2. Feeling of incomplete bladder emptying (R39.14: Feeling of incomplete bladder emptying) States she does not always feel she empties completely. PVR 165cc. Advised pt to lean forward, press on the bladder, and to double void to help empty completely. Discussed possible urethral stricture which may attribute to incomplete emptying and a cystoscopy would be required to evaluate this. Reports she has had a cysto done in the past after she passed a kidney stone and had severe pain with urination after the cysto which made her hesitant to void. Advised pt pyridium can be taken following the cysto to reduce pain. Will rx. -Will schedule Cysto with possible UD. The procedure risks, benefits, details, and treatment alternatives have been discussed with the patient. These include bleeding, infection, recurrent scar in over 50%, need for repeat dilation or other procedures, no symptom relief with dilation, among others. Full informed consent has been obtained. Will order Local anesthesia. -Pyridium 200mg tid x3days after cysto. Rx sent to [facility]. -Double void maneuvers Ordered: Body Mass Index (BMI) documented 3008F Body Mass Index (BMI) documented 3008F Current tobacco non-user 1036F Current tobacco non-user 1036F Depression Screening Negative 3352F Depression Screening Negative 3352F E&M of New Patient Moderate 45-59 Min 98101 Influenza immunization status assessed 1030F Influenza immunization status assessed 1030F Most recent diastolic blood pressure 80-89 mm Hg 3079F Most recent diastolic blood pressure 80-89 mm Hg 3079F Systolic BP <130 mm Hg (Most Recent) 3074F Systolic BP <130 mm Hg (Most Recent) 3074F 3. OAB (overactive bladder) (N32.81: Overactive bladder) BBS 22-23. UA today negative for blood and infection. Voids q1-2hrs during the day. Nocturia 1-2x. Has severe urgency and will leak. Does not wear pads but does change underwear 1-2x/day. Pt is taking Buspirone and risperidone which can cause increased frequency and some hesitancy. Reports urinary sxs have worsened within the last year. Drinks 2-3 cups of coffee in the morning and pop, water, or tea in the evenings. Educated pt these are bladder irritants and should be limited. sx may be worsened by her psych meds. however she is well controlled on these so we don't' want to change them. if sx persist after UD, may need to consider anticholinergic. Ordered: Body (more content not included)... Normal [facility] Comment on above: Result Comment: Elec tronically Signed By: ELPIDIO HENSON PA-C\.br\Date and Time Signed: 03/27/23 11:32 EST\.br\Electronically Co-Signed By: Era Villegas\.br\Date and Time Co-Signed: 03/27/23 11:16 EST PAP ACOG PANEL 2: 30 to 65on 01-29-2022 . . Normal [facility] Comment on above: Result Comment: Perf ormed at: WB Performed By: #### [id number] #### [facility] [address] [address] [address] Ab Sloan Age Gdln ACOG Testing 30-65 Normal [facility] Comment on above: Performed By: #### [id number] #### [facility] [address] [address] [address] Ab Sloan DIAGNOSIS: Comment Normal [facility] Comment on above: Result Comment: NEGA TIVE FOR INTRAEPITHELIAL LESION OR MALIGNANCY. SHIFT IN CRISTIN SUGGESTIVE OF BACTERIAL VAGINOSIS. Performed at: WB Performed By: #### [id number] #### [facility] [address] [address] [address] Ab Sloan HPV Aptima Negative Normal Negative [facility] Comment on above: Result Comment: This nucleic acid amplification test detects fourteen high-risk HPV types (16,18,31,33,35,39,45,51,52,56,58,59,66,68) without differentiation. Performed at: =G Performed By: #### [id number] #### [facility] [address] [place] [address] Dr. Ab Sloan Methodology: Comment Normal [facility] Comment on above: Result Comment: This liquid based ThinPrep(R) pap test was screened with the use of an image guided system. Performed at: WB Performed By: #### [id number] #### [facility] [address] [place] [address] Dr. Ab Sloan Note: Comment Normal [facility] Comment on above: Result Comment: The Pap smear is a screening test designed to aid in the detection of premalignant and malignant conditions of the uterine cervix. It is not a diagnostic procedure and should not be used as the sole means of detecting cervical cancer. Both false-positive and false-negative reports do occur. . Performed at: WB Performed By: #### [id number] #### [facility] [address] [place] [address] Dr. Ab Sloan Performed by: Comment Normal [facility] Comment on above: Result Comment: Ashley Rider, Lubrication Servicer (ASCP) Performed at: WB Performed By: #### [id number] #### [facility] [address] [place] [address] Dr. Ab Sloan Specimen adequacy: Comment Normal [facility] Comment on above: Result Comment: Sati sfactory for evaluation. No endocervical component is identified. Performed at: WB Performed By: #### [id number] #### [facility] [address] [place] [address] Dr. Ab Sloan VAGINITIS/VAGINOSIS DNA PROB [place] 01-24-2022 Betsy species Negative Normal Negative [facility] Comment on above: Performed By: #### V AGINT #### [facility] [address] [place] [address] Dr. Ab Sloan Gardnerella vaginalis Positive Abnormal Negative [facility] Comment on above: Performed By: #### V AGINT #### [facility] [address] [place] [address] Dr. Ab Sloan Trichomonas vaginalis Negative Normal Negative [facility] Comment on above: Performed By: #### V AGINT #### [facility] [address] [place] [address] Dr. Ab Sloan PROCALCITONINon 12-04-2021 Procalcitonin <0.02 Normal 0.00-0.08 [facility] Comment on above: Result Comment: . A procalcitonin (PCT) level above 2.0 ng/mL on the first day of ICU admission is associated with a high risk for progression to severe sepsis and/or septic shock. . A PCT level below 0.5 ng/mL on the first day of ICU admission is associated with a low risk for progression to severe sepsis and/or septic shock. . Note: Concentrations <0.5 ng/mL do not exclude an infection, on account of localized infections (without systemic signs) which can be associated with such low concentrations, or a systemic infection in its initial stages (<6 hours). Furthermore, increased procalcitonin can occur without infection. PCT concentrations between 0.5 and 2.0 ng/mL should be interpreted taking into account the patient's history. It is recommended to retest PCT within 6-24 hours if any concentrations <2 ng/mL are obtained. Performed By: #### P CTLC ####[facility] [address] [address]Dr. Ab Sloan CBC AUTO DIFFon 11-30-2021 BASO # 0.0 103/ul Normal 0.0-0.1 [facility] Comment on above: Performed By: #### C BC #### [facility] [address] [place] [address] Dr. Ab Sloan Basophils/100 WBC (Bld) 0.5 % Normal 0.2-2.0 [facility] Comment on above: Performed By: #### C BC #### [facility] [address] [place] [address] Dr. Ab Sloan EO # 0.1 103/ul Normal 0.0-0.7 [facility] Comment on above: Performed By: #### C BC #### [facility] [address] [place] [address] Dr. Ab Sloan Eosinophils/100 WBC (Bld) 0.8 % Critically low 0.9-7.0 [facility] Comment on above: Performed By: #### C BC #### [facility] [address] [place] [address] Dr. Ab Sloan Erythrocyte distribution width (RBC) [Ratio] 12.2 % Normal 11.0-15.0 [facility] Comment on above: Performed By: #### C BC #### [facility] [address] [place] [address] Dr. Ab Sloan Hematocrit (Bld) [Volume fraction] 38.2 % Normal 36.0-48.0 [facility] Comment on above: Performed By: #### C BC #### [facility] [address] [place] [address] Dr. Ab Sloan Hemoglobin (Bld) [Mass/Vol] 13.1 g/dL Normal 12.0-16.0 [facility] Comment on above: Performed By: #### C BC #### [facility] [address] [place] [address] Dr. Ab Sloan IG # 0.01 10e3/ul Normal 0.00-0.03 [facility] Comment on above: Performed By: #### C BC #### [facility] [address] [place] [address] Dr. Ab Sloan IG % 0.2 % Normal 0.0-0.5 [facility] Comment on above: Performed By: #### C BC #### [facility] [address] [place] [address] Dr. Ab Sloan LYMPH # 1.9 103/ul Normal 1.2-3.8 [facility] Comment on above: Performed By: #### C BC #### [facility] [address] [place] [address] Dr. Ab Sloan Lymphocytes/100 WBC (Bld) 31.2 % Normal 20.5-60.0 [facility] Comment on above: Performed By: #### C BC #### [facility] [address] [place] [address] Dr. Ab Sloan MANUAL DIFF REQ NO Normal [facility] Comment on above: Performed By: #### C BC #### [facility] [address] [place] [address] Dr. Ab Sloan MCH (RBC) [Entitic mass] 31.0 pg Normal 26.7-34.0 [facility] Comment on above: Performed By: #### C BC #### [facility] [address] [place] [address] Dr. Ab Sloan MCHC (RBC) [Mass/Vol] 34.3 g/dL Normal 29.9-35.2 [facility] Comment on above: Performed By: #### C BC #### [facility] [address] [place] [address] Dr. Ab Sloan MCV (RBC) [Entitic vol] 90.5 fL Normal 81.0-99.0 [facility] Comment on above: Performed By: #### C BC #### [facility] [address] [place] [address] Dr. Ab Sloan MONO # 0.4 103/ul Normal 0.3-0.8 [facility] Comment on above: Performed By: #### C BC #### [facility] [address] [place] [address] Dr. Ab Sloan Monocytes/100 WBC (Bld) 6.2 % Normal 1.7-12.0 [facility] Comment on above: Performed By: #### C BC #### [facility] [address] [place] [address] Dr. Ab Sloan NEUT # 3.7 103/ul Normal 1.4-6.5 [facility] Comment on above: Performed By: #### C BC #### [facility] [address] [place] [address] Dr. Ab Sloan Neutrophils/100 WBC (Bld) 61.1 % Normal 43.0-75.0 [facility] Comment on above: Performed By: #### C BC #### [facility] [address] [address] [address] Ab Sloan Platelet mean volume (Bld) [Entitic vol] 12.0 fL Normal 9.5-13.5 [facility] Comment on above: Performed By: #### C BC #### [facility] [address] [address] [address] Ab Sloan PLT 198 103/ul Normal 150-450 [facility] Comment on above: Performed By: #### C BC #### [facility] [address] [address] [address] Ab Sloan RBC 4.22 106/ul Normal 4.20-5.40 [facility] Comment on above: Performed By: #### C BC #### [facility] [address] [address] [address] Ab Sloan WBC 6.1 103/ul Normal 4.0-11.0 [facility] Comment on above: Performed By: #### C BC #### [facility] [address] [address] [address] Ab Sloan CRPon 11-30-2021 CRP [Mass/Vol] mg/L Normal <=1.0 [facility] Comment on above: Performed By: #### B MP, CRP #### [facility] [address] [address] [address] Ab Sloan DRUG SCREEN RAPID (URINE)on 11-30-2021 AMP Negative Normal NEGATIVE [facility] Comment on above: Performed By: #### D TULIO ERUR ####[facility] [address] [id number] Ab Sloan BAR Negative Normal NEGATIVE [facility] Comment on above: Performed By: #### D TULIO, ERUR ####[facility] [address] [place], [place] [address]OiJasbir Sloan BUP Negative Normal NEGATIVE [facility] Comment on above: Performed By: #### D TULIO, ERUR ####[facility] [address] [id number][address] Ab Sloan BZO Negative Normal NEGATIVE [facility] Comment on above: Performed By: #### KB MASCORROR ####[facility] [address] [place], [place] [address]Dr. Ab Sloan LESTER Negative Normal NEGATIVE [facility] Comment on above: Performed By: #### KB MASCORROR ####[facility] [address] [place], [place] [address]Dr. Ab Sloan CUT-OFFS SEE BELOW Normal [facility] Comment on above: Result Comment: AMP (Amphetamine): 500ng/mL, BAR (Barbituates): 200 ng/mL, BZO (Benzodiazepines): 150 ng/mL, BUP (Buprenorphine): 10 ng/mL, LESTER (Cocaine): 150 ng/mL, mAMP (Methamphetamine): 500 ng/mL, MTD (Methadone): 200 ng/mL, OPI (Opiates): 100 ng/mL, OXY (Oxycodone): 100 ng/mL, PCP (Phencyclidine): 25 ng/mL, PPX (Propoxyphene): 300 ng/mL, THC (Cannabinoids): 50 ng/mL, TCA (Trycyclic Antidepressants): 300 ng/mL Performed By: #### KB MASCORROR ####[facility] [address] [place], [place] [address]Dr. Ab Sloan DRUG CUT HEADER DRUG CLASS TEST SYSTEM CUT-OFF CONCENTRATIONS ARE FOLLOWS: Normal [facility] Comment on above: Performed By: #### KB MASCORROR ####[facility] [address] [place], [place] [address]Dr. Ab Sloan mAMP Negative Normal NEGATIVE [facility] Comment on above: Performed By: #### KB MASCORROR ####[facility] [address] [place], [place] [address]Dr. Ab Sloan MTD Negative Normal NEGATIVE [facility] Comment on above: Performed By: #### CHAYITO MASCORRO ####[facility] [address] [place], [place] [address]Dr. Ab Sloan OPI Negative Normal NEGATIVE [facility] Comment on above: Performed By: #### D TULIO, ERUR ####[facility] [address] [address]Dr[address] Yierin Sloan OXY Negative Normal NEGATIVE [facility] Comment on above: Performed By: #### D TULIO, ERUR ####[facility] [address] [address]Dr. Babitaerin Sloan PCP Negative Normal NEGATIVE [facility] Comment on above: Performed By: #### Rosi ANTUNEZ, ERUR ####[facility] [facility] [address] [address]Dr. Ab Sloan PPX Negative Normal NEGATIVE [facility] Comment on above: Performed By: #### Rosi ANTUNEZ, ERUR ####[facility] [address] [place], [place] [address]Dr. Ab Sloan TCA Negative Normal NEGATIVE [facility] Comment on above: Performed By: #### Rosi ANTUNEZ, ERUR ####[facility] [address] [place], [place] [address]Dr. Babitaerin Sloan THC Negative Normal NEGATIVE [facility] Comment on above: Performed By: #### Rosi ANTUNEZ, ERUR ####[facility] S[address] [place], [place] [address]Dr. Ab Sloan ER URINE PROFILEon 2 Bilirubin Ql (U) Negative Normal NEGATIVE The [facility] Comment on above: Performed By: #### Rosi ANTUNEZ, ERUR ####[facility] [address] [address]Dr. Ab Sloan Clarity (U) CLEAR Normal CLEAR [facility] Comment on above: Performed By: #### Rosi ANTUNEZ, ERUR ####[facility] [address] [address]Dr. Ab Sloan Color (U) LT. YELLOW Normal YELLOW [facility] Comment on above: Performed By: #### Rosi ANTUNEZ, ERUR ####[facility] [address] [place], [place] [address]Dr. Ab MARCUM A micrscopic examination will be performed if indicated. Normal [facility] Comment on above: Performed By: #### Rosi ANTUNEZ, ERUR ####[facility] [address] [address]Dr. Ab Sloan Glucose Ql (U) Negative Normal NEGATIVE [facility] Comment on above: Performed By: #### Rosi ANTUNEZ, ERUR ####[facility] [address] [address]Dr. Ab Luther Hemoglobin Ql (U) Negative Normal NEGATIVE [facility] Comment on above: Performed By: #### Rosi ANTUNEZ, ERUR ####[facility] [address] [place], [place] [address]Dr. Babitaerin Sloan Ketones Ql (U) Negative Normal NEGATIVE [facility] Comment on above: Performed By: #### Rosi ANTUNEZ, ERUR ####[facility] W[address] [place], [place] [address]Dr. Ab Luther LEUKOCYTES Negative Normal NEGATIVE [facility] Comment on above: Performed By: #### Rosi ANUTNEZ, ERUR ####[facility] [address] [place], [place] [address]Dr. Ab Luther Nitrite Ql (U) Negative Normal NEGATIVE [facility] Comment on above: Performed By: #### Rosi ANTUNEZ, ERUR ####[facility] M[address] [place], [place] [address]Dr. Ab Sloan pH (U) 6.0 [pH] Normal 5-9 [facility] Comment on above: Performed By: #### Rosi ANTUNEZ, ERUR ####[facility] [address] [address]Dr. Ab Sloan SPEC GRAVITY 1.020 Normal 1.005-<=1.025 [facility] Comment on above: Performed By: #### oRsi ANTUNEZ, ERUR ####[facility] [address] [address]Dr. Ab Sloan UA PROTEIN Negative Normal NEGATIVE/ TRACE [facility] Comment on above: Performed By: #### Rosi CAMPOSD, ERUR ####[facility] [address] [id number] Sloan UR MICRO IND NOT INDICATED Normal [facility] Comment on above: Performed By: #### D TULIO, ERUR ####[facility] [address] [place], [place] [address]JeJasbir Sloan Urobilinogen Qn (U) 0.2 {Lamonte'U}/dL Normal 0.2 - 1. 0 [facility] Comment on above: Performed By: #### D TULIO, ERUR ####[facility] [address] [address]DrJasbir Sloan PROF CHEM 8 (BAS METB)on Anion gap [Moles/Vol] 11.6 mmol/L Normal [facility] Comment on above: Performed By: #### B MP, CRP #### [facility] [address] [address] [address] Ab Sloan Calcium [Mass/Vol] 8.8 mg/dL Normal 8.5-10.1 [facility] Comment on above: Performed By: #### B MP, CRP #### [facility] [address] [address] [address] Ab Sloan Chloride [Moles/Vol] 104 mmol/L Normal 98-107 [facility] Comment on above: Performed By: #### B MP, CRP #### [facility] [address] [address] [address] Ab Sloan CO2 [Moles/Vol] 26.9 mmol/L Normal 21.0-32.0 [facility] Comment on above: Performed By: #### B MP, CRP #### [facility] [address] [address] [address] Ab Sloan Creatinine [Mass/Vol] 0.91 mg/dL Normal 0.55-1.02 [facility] Comment on above: Performed By: #### B MP, CRP #### [facility] [address] [address] [address] Ab Sloan EGFR-AF NICARAGUAN >60 Normal >=60 [facility] Comment on above: Performed By: #### B MP, CRP #### [facility] [address] [place] [address] Dr. Ab Sloan EGFR-NON AF NICARAGUAN >60 Normal >=60 [facility] Comment on above: Performed By: #### B MP, CRP #### [facility] [address] [address] [address] Ab Sloan Glucose [Mass/Vol] 105 mg/dL Normal 74-106 [facility] Comment on above: Performed By: #### B MP, CRP #### [facility] [address] [place] [address] Dr. Ab Sloan Potassium [Moles/Vol] 3.5 mmol/L Normal 3.5-5.1 [facility] Comment on above: Performed By: #### B MP, CRP #### [facility] [address] [place] [address] Dr. Ab Sloan Sodium [Moles/Vol] 139 mmol/L Normal 136-145 [facility] Comment on above: Performed By: #### B MP, CRP #### [facility] [address] [place] [address] Dr. Ab Sloan Urea nitrogen [Mass/Vol] 14.0 mg/dL Normal 7.0-18.0 [facility] Comment on above: Performed By: #### B MP, CRP #### [facility] [address] [place] [address] Dr. Ab Sloan Urea nitrogen/Creatinine [Mass ratio] 15.4 mg/mg Normal [facility] Comment on above: Performed By: #### B MP, CRP #### [facility] [address] [place] [address] Dr. Ab Sloan CBC AUTO DIFFon 06-14-2021 BASO # 0.0 103/ul Normal 0.0-0.1 [facility] Comment on above: Performed By: #### C BC #### [facility] [address] [place] [address] Dr. Ab Sloan Basophils/100 WBC (Bld) 0.6 % Normal 0.2-2.0 [facility] Comment on above: Performed By: #### C BC #### [facility] [address] [place] [address] Dr. Ab Sloan EO # 0.2 103/ul Normal 0.0-0.7 [facility] Comment on above: Performed By: #### C BC #### [facility] [address] [place] [address] Dr. Ab Sloan Eosinophils/100 WBC (Bld) 3.1 % Normal 0.9-7.0 [facility] Comment on above: Performed By: #### C BC #### [facility] [address] [place] [address] Dr. Ab Sloan Erythrocyte distribution width (RBC) [Ratio] 12.7 % Normal 11.0-15.0 [facility] Comment on above: Performed By: #### C BC #### [facility] [address] [place] [address] Dr. Ab Sloan Hematocrit (Bld) [Volume fraction] 36.9 % Normal 36.0-48.0 [facility] Comment on above: Performed By: #### C BC #### [facility] [address] [place] [address] Dr. Ab Sloan Hemoglobin (Bld) [Mass/Vol] 12.1 g/dL Normal 12.0-16.0 [facility] Comment on above: Performed By: #### C BC #### [facility] [address] [place] [address] Dr. Ab Sloan IG # 0.01 10e3/ul Normal 0.00-0.03 [facility] Comment on above: Performed By: #### C BC #### [facility] [address] [place] [address] Dr. Ab Sloan IG % 0.2 % Normal 0.0-0.5 [facility] Comment on above: Performed By: #### C BC #### [facility] [address] [place] [address] Dr. Ab Sloan LYMPH # 2.1 103/ul Normal 1.2-3.8 [facility] Comment on above: Performed By: #### C BC #### [facility] [address] [place] [address] Dr. Ab Sloan Lymphocytes/100 WBC (Bld) 40.2 % Normal 20.5-60.0 [facility] Comment on above: Performed By: #### C BC #### [facility] [address] [place] [address] Dr. Ab Sloan MANUAL DIFF REQ NO Normal [facility] Comment on above: Performed By: #### C BC #### [facility] [address] [place] [address] Dr. Ab Sloan MCH (RBC) [Entitic mass] 30.0 pg Normal 26.7-34.0 [facility] Comment on above: Performed By: #### C BC #### [facility] [address] [place] [address] Dr. Ab Sloan MCHC (RBC) [Mass/Vol] 32.8 g/dL Normal 29.9-35.2 [facility] Comment on above: Performed By: #### C BC #### [facility] [address] [place] [address] Dr. Ab Sloan MCV (RBC) [Entitic vol] 91.6 fL Normal 81.0-99.0 [facility] Comment on above: Performed By: #### C BC #### [facility] [address] [place] [address] Dr. Ab Slaon MONO # 0.4 103/ul Normal 0.3-0.8 [facility] Comment on above: Performed By: #### C BC #### [facility] [address] [place] [address] Dr. Ab Sloan Monocytes/100 WBC (Bld) 7.5 % Normal 1.7-12.0 [facility] Comment on above: Performed By: #### C BC #### [facility] [address] [place] [address] Dr. Ab Sloan NEUT # 2.5 103/ul Normal 1.4-6.5 [facility] Comment on above: Performed By: #### C BC #### [facility] [address] [address] [address] Ab Sloan Neutrophils/100 WBC (Bld) 48.4 % Normal 43.0-75.0 [facility] Comment on above: Performed By: #### C BC #### [facility] [address] [id number] [address] Ab Sloan Platelet mean volume (Bld) [Entitic vol] 11.1 fL Normal 9.5-13.5 [facility] Comment on above: Performed By: #### C BC #### [facility] [address] [id number] [address] Ab Sloan PLT 186 103/ul Normal 150-450 [facility] Comment on above: Performed By: #### C BC #### [facility] [address] [place] [address] Dr. Ab Sloan RBC 4.03 106/ul Critically low 4.20-5.40 [facility] Comment on above: Performed By: #### C BC #### [facility] [address] [id number] [address] Ab Sloan WBC 5.2 103/ul Normal 4.0-11.0 [facility] Comment on above: Performed By: #### C BC #### [facility] [address] [place], [place] [id number] Dr. Ab Sloan CT ABD/PELVIS WO CONon 06-14 CT ABD/PELVIS WO CON EXAMINATION: CT ABD/PELVIS WO CON, 06/14/2021 9:32 AM EST HISTORY: Left sided abdominal pain. COMPARISON: CT dated 08/23/2020. TECHNIQUE: CT scan of the abdomen and pelvis was performed without IV contrast. CT dose reduction technique was used, including Automated Exposure Control. FINDINGS: The lung bases are grossly clear. Breathing motion artifact limits evaluation of lung bases. Lower mediastinal structures are stable in appearance. The liver and spleen show stable mild enlargement. This adrenal glands, pancreas, gallbladder show normal unenhanced characteristics. The kidneys are symmetric in size and show no calcifications or hydronephrosis. The aorta has a normal course and caliber. The large and small bowel are normal caliber. Surgical changes of hysterectomy. The previously seen left ovarian cyst has decreased in size but is heterogeneous in appearance on this exam. This measures roughly 2.8 cm, previously measuring 4.7 cm. Urinary bladder is empty. There is no free air or free fluid and no inflammatory stranding is seen. Osseous structures are stable in appearance. IMPRESSION: No acute infectious or inflammatory process within the limitations of a noncontrast exam. Interval decrease in size of the previously seen left ovarian cyst, although this now has a heterogeneous appearance. Consider further evaluation with pelvic ultrasound. Stable hepatosplenomegaly. This is of uncertain etiology and clinical significance. Electronically authenticated by: TIBURCIO OROZCO Date: 2021-06-14 10:26 Normal [facility] ER URINE PROFILEon 2 Bilirubin Ql (U) Negative Normal NEGATIVE [facility] Comment on above: Performed By: #### E RUR #### [facility] [address] [place] [address] Dr. Ab Sloan Clarity (U) CLEAR Normal CLEAR [facility] Comment on above: Performed By: #### E RUR #### [facility] [address] [place] [address] Dr. Ab Sloan Color (U) YELLOW Normal YELLOW [facility] Comment on above: Performed By: #### E RUR #### [facility] [address] [place] [address] Dr. Ab MARCUM A micrscopic examination will be performed if indicated. Normal [facility] Comment on above: Performed By: #### E RUR #### [facility] [address] [place] [address] Dr. Ab Sloan Glucose Ql (U) Negative Normal NEGATIVE [facility] Comment on above: Performed By: #### E RUR #### [facility] [address] [place] [address] Dr. Ab Sloan Hemoglobin Ql (U) Negative Normal NEGATIVE [facility] Comment on above: Performed By: #### E RUR #### [facility] [address] [place] [address] Dr. Ab Sloan Ketones Ql (U) Negative Normal NEGATIVE [facility] Comment on above: Performed By: #### E RUR #### [facility] [address] [place] [address] Dr. Ab Sloan LEUKOCYTES Negative Normal NEGATIVE [facility] Comment on above: Performed By: #### E RUR #### [facility] [address] [place] [address] Dr. Ab Sloan Nitrite Ql (U) Negative Normal NEGATIVE [facility] Comment on above: Performed By: #### E RUR #### [facility] [address] [place] [address] Dr. Ab Sloan pH (U) 6.0 [pH] Normal 5-9 [facility] Comment on above: Performed By: #### E RUR #### [facility] [address] [place] [address] Dr. Ab Sloan SPEC GRAVITY >=1.030 Abnormal 1.005-<=1.025 [facility] Comment on above: Performed By: #### E RUR #### [facility] [address] [place] [address] Dr. Ab Sloan UA PROTEIN Negative Normal NEGATIVE/ TRACE [facility] Comment on above: Performed By: #### E RUR #### [facility] [address] [place] [address] Dr. Ab Sloan UR MICRO IND NOT INDICATED Normal [facility] Comment on above: Performed By: #### E RUR #### [facility] [address] [place] [address] Dr. Ab Sloan Urobilinogen Qn (U) 0.2 {Lamonte'U}/dL Normal 0.2 - 1. 0 [facility] Comment on above: Performed By: #### E RUR #### [facility] [address] [place] [address] Dr. Ab Sloan PROF CHEM 8 (BAS METB)on Anion gap [Moles/Vol] 10.3 mmol/L Normal [facility] Comment on above: Performed By: #### B MP #### [facility] [address] [address] [address] Ab Sloan Calcium [Mass/Vol] 8.8 mg/dL Normal 8.4-10.2 [facility] Comment on above: Performed By: #### B MP #### [facility] [address] [place] [address] Dr. Ab Sloan Chloride [Moles/Vol] 104 mmol/L Normal 98-107 [facility] Comment on above: Performed By: #### B MP #### [facility] [address] [place] [address] Dr. Ab Sloan CO2 [Moles/Vol] 28.8 mmol/L Normal 22.0-30.0 [facility] Comment on above: Performed By: #### B MP #### [facility] [address] [place] [address] Dr. Ab Sloan Creatinine [Mass/Vol] 0.79 mg/dL Normal 0.52-1.04 [facility] Comment on above: Performed By: #### B MP #### [facility] [address] [place] [address] Dr. Ab Sloan EGFR-AF NICARAGUAN >60 Normal >=60 [facility] Comment on above: Performed By: #### B MP #### [facility] [address] [place] [address] Dr. Ab Sloan EGFR-NON AF NICARAGUAN >60 Normal >=60 [facility] Comment on above: Performed By: #### B MP #### [facility] [address] [place] [address] Dr. Ab Sloan Glucose [Mass/Vol] 93 mg/dL Normal 74-106 [facility] Comment on above: Performed By: #### B MP #### [facility] [address] [place] [address] Dr. Ab Sloan Potassium [Moles/Vol] 4.1 mmol/L Normal 3.4-5.0 [facility] Comment on above: Performed By: #### B MP #### [facility] [address] [place] [address] Dr. Ab Sloan Sodium [Moles/Vol] 139 mmol/L Normal 137-145 [facility] Comment on above: Performed By: #### B MP #### [facility] [address] [address] [address] Ab Sloan Urea nitrogen [Mass/Vol] 13.0 mg/dL Normal 7.0-17.0 [facility] Comment on above: Performed By: #### B MP #### [facility] [address] [address] [address] Ab Sloan Urea nitrogen/Creatinine [Mass ratio] 16.5 mg/mg Normal [facility] Comment on above: Performed By: #### B MP #### [facility] [address] [address] [address] Ab Sloan XR KUB 1 VIEWon 06-14-2021 XR KUB 1 VIEW EXAMINATION: XR KUB 1 VIEW HISTORY: Left flank pain COMPARISON: CT exam FINDINGS: KIDNEY/URETER - RIGHT: No visible renal or ureteral calcifications. KIDNEY/URETER - LEFT: No visible renal or ureteral calcifications. PELVIS: No visible ureteral calcifications. Any visible calcifications favor phleboliths. BOWEL: No abnormal dilation or deviation. Normal to moderate amount of stool throughout the colon BONES: No acute abnormality. OTHER: Negative. No abnormal gaseous collections. IMPRESSION: No definite urinary tract calculi Electronically authenticated by: REAL RIDER Date: 2021-06-14 09:08 Normal [facility] Coding Queryon 02-25-2021 SARS-CoV-2 (COVID-19) RNA TERESE+probe Ql (Unsp spec) Can you please review the patient's COVID results and revise the diagnosis if you feel appropriate? Thanks. [Electronically Signed on: 02/27/2021 18:06 EDT] SHOLA HONG [Verified on: 02/27/2021 18:06 EDT] SHOLA HONG [Transcribed on: 02/25/2021 13:31 EDT] [facility] Coding Summaryon 02-25-2021 Coding Summary HTMLBase 64 JdtmehtaZNv3vXv+PGhlY WQ+AO3CGAZmU94epBYcdH 9ZP3dEMN5IQOSLCMVASQ1 EIJ6cxPA5BBzuK4BrdpLd GyhgaSPhXG15TRx9AJV1u FylUGewqI8wiTBqE3l3Ju NqIK38mX90FCenKDEvQsJ 3LjZpbjsgbWFy V3iuQoVutYEkJzx+PHRhY mxlIHdpZHRoPScxMDAlJy IciNoeJA5kSt6gQVFgHFS vbGxhcHNlOiBj z3biPNDpGWctHL5hzYliY 1QmbOZ0AKBbv7j6Bg66oI I+LWMbCXM3nFvwODhlf24 7XnEdt2uiDHR7 wWQjXIliFVV9V03br6Q2Z CGbJWDpUXM8jSC3pJ0stA eiytkqB7EpfACvNoQ7CWC 0yOYfeZ4cvXlq comowL7zRdg+F23ATT0YI MYZKA0PNvy3K0MeGbujbI I+XC37KAHgFP85uWUlfXO qr4setQs9FxQy ITUsBVP4jCtcXMrhh2CyX ECwK04mfGXox8D4IHMnwR ccbZOiRwAurQT4oO3uZWx wllthc1otyxrt Yucbl3vaah04eV42B90tV RvxCQTcLTS6PJIqGTFxfC lqzq9vhA9oZg1+KVztj1n pa5fjvOl6TuNu UEKajvEcwMygGZC2i7IvR l75X9LuyTnet1EzQol9id 78eEBag4G7cMN3CAkmIQQ sqS6gICvvTrF7 ICCfCfKvgJ46xJPqAYpgE m0xsReyuEzjSI9pFALkln ijHKAxkP1oIYBvbIFmwHj wFI9pHXAzpjkw f728IiVzEBF5QSSwlQCiA 5SbrU8eCkKtWPRmOORdN7 RcaBHaFVepE471OGsyJcN 2VHCmqdYiV2Th OKBwtSksGgX7k0T8Ss6Yg 7MkwilnQQY3LLnbJACfRu XbYfWyErB3M5LlUtc9MQY ypKknUR4pM7Cy UEPuguztqbtdbRH7EBHhK WByzD60yNNxVNzoBv4am3 P6s005JZYpYJTmgO52Nf4 udDogMTBwdCBU eK5okpgel7djwgnyDiHbE GEcDTu6XQb3LOQypJpyLz XbNGT9IjN8NLC2lDMaeJ4 qsLqcjjedhW8v Oyc+T19neT8fSFP0DAD7j yxrVWFmtcRdPJ49DE90T3 RyPjwvdGFibGU+PGRpdiB ixGdoIO0eAkMt k9cje8PrQLebN9VtRPGdT NlaWfj2PDDmORL8kRY6qQ 6pRPUhTFibp6Z8mHV0B0G trrZxcx2nx3xu CJXuULziI27jnUGdq5W4D NKgjZA1KZIduNarNjJejZ 93Oyc+FEPjkPmot8QmLyr uq8dgj0djzEd1 XnSpPSWfljEfaKyhQZS1z 6EpEl13R37iGZpyNCEqOY HdKGKuRNJbqOcazx7mzA6 wIi8+PGNvbCB3 eIL3jS9jNMPsNkP1ZZqgB 875RiGapAHoFfico6aqu1 qkxIn4OrZdCMEwwgQwtUl qDDP5m5EkDl39 Q23rDPigFTVnIBRoNGBvK DQxhGxwqt8hsS2dSs3+PC 2bf4zlgy78zC15mKZ+PHR wUNM8aDgdHZrn GXYjuA7rILmzNhP4AAEkO zMigO61xUOwLQkyDl9heQ inbQorVL3gNPRzmiowf91 2ZmGku8lpLKWa nNQgIDgeZMB3R30bf1H1A HPkHLEcFEB6mIW7pJ9dmL lnbjogbGVmdDsgdmVydGl gLKhqCSgqE502 IHRvcDsnPlBhdGllbnQgT xMwEUh4R5ZqYtx8UAPtmZ zcLX2gvTXkRGwpVc3tnIv htCruYC1eLIQw moqzc226UrVvt7zjQUNpx CPhLLsjHGI7O12qz3G5LU AfIZFbNSF4vRO7tS1biDj nbjogbGVmdDsg bzJtnUgpTAvjGDnnH085H HRvcDsnPkJpcnRoIERhdG G7NO07CQ93wEZju5R0qGY 5L7XjSVFuykse mmoysRV2ZALuSSPguE24M g8atHuaXd2hSUKwHEU9FW CdrUJlE1OezC0vSyOlUXY xXWGhI6KunGYy IWguU171DHphPyN4CPFqu nWqU2QqCKXfySbuWcD0q5 Q6Kv3VW0T9NG20WD79hQC my4G6gGS3F2Tf SVZzodluyscfySZ1ZXVaK JAitZ20Sc9omKbjDg4gFQ BkQEC6SOBstAFkR0VtbI4 yOiAjMDAwMDAw V4IvxZYcXNfbU760HSmiA hA0NCUochMvK8ZmGEJatJ srJcQ2c3C9Xn2FDYs3UA6 8SM95gTCzb8X1 kEZ4S0CgYNTlmzkvomeqk YK0MHZiSRWugI93Ov6mjZ ptIn1bZKKfNTH9KYZyzJO vG5WyaB7eVgGa AHBhPIEeM2JykGFvNVybO 795QYttDkU5LIOmquIoW4 UjPTLdnFzuIxK4t8U9Cd8 SDEQcHA07VQM2 hWX0JB57TH97H4OcUpixl GFibGU+PHRhYmxlIHdpZH RoPScxMDAlJyBzdHlsZT0 wQw9mRXQnZRSk yZtrgGLfQuQtj8smJFRuV QzfAD7chVdqY4LwxTM7HU Rde4v7Bj01R65aV7NafPR +OMHljMY8fNS5 sB2cLvMbIfY8KZjjH008B dDgzNSnUvogu7gol6yrrH z3UzQ1KZNaelYtyYrbFAX 4n5FvLl18E32q IHdpZHRoPSIxNSUiIHZhb Fjcyh5qvM9eRa4+PGNvbC I1wXW9aH4bVqNdFbQ2EFs bW107VxIssHAs Jrgjx2wfl7vfwGm2FuEmH ZGzexDeeQgmSXS2i4JiTc 69H3UyqFqlt2RmYuf1wx3 8rABsc5O5sTX1 F3CsNKSauwgtdNYybCvkM C9gNYRwncciVRVjaJ2cAH DeB1t9ReEbDqE8GRtfY6J qevY4DABfvLMa ORfwTSD0V03sp3O5JTKyK RLlZFH4xHO5fA9ztOohpe ogbGVmdDsgdmVydGljYWw gQFsvG633XDLy nWglPAEolL4hOINmgQNhw LmrEM8jSTVxhagdPxpBMA wsIFNIQVdOVEUgTUFSSUU 8T7AjWvx8KHKn cIaqUH0ywCTmOIedEa8ji UhrzUrfEE5rPTDivoeuFG KozS6iLQCiyGQuvEdaFK7 fRRZiqbxal878 RjFpVNR3MJVblLNfO3Ncs T1rXrAlWVIlWHYhI9MscS LyOAjeR791QAthVrF9YYT dzlOaU2UoCCNy zIwlCwF9o2E7Pw8oGG3cL b1sYDy3LR58RI25hJRyg1 T2dGY2K0QjODPfswequbd dhXS8XOQkZQAh aY52jZFvTEcrJb8sw8X6z 371KDWxIXAkaM00Yx5bvL tkUUTfuPZPqL5opnkcz1d vcjogIzAwMDAw ZPo6NLg7UYLbqLdoEmXtI GS8QpU9NNR6zBEfiV4huA pereuqjC0eIce+MzYgWWV ftnN1U4TeNls9 PRHguNonYH4cqYSnHVglY f1taVhntFvvWC5tZPVgco ihSGHbjP8yAFVgmHXldAr tMB0vINEzrrfg n080GtRyKZV0IIHmeOEeO 8TvjX2gFdUiOBFsBYQjN0 NgkWPfFIiwD622FCkdKfK 7KRSfjzTiV7Yt ULOtiVeiViD8q3Q7Lv6QT Z5EFSP1F2QqOxw5BMPmxK ltSZ0xnKXsMUqeBw3mbWy mxAfaWJ9pQUEg gszyWDWrtD1rXIYbsKPwa OrzFO8dSBTwwnunl209Zn UhOCH4VSIyxKCvK2CleV0 yOiAjMDAwMDAw N5RtiXGfIRasV798MLpuZ fX2JTMlfzGiN8EnTJOlbN cuRsA8b2U9Bl4UMHjceNH +TL23xg72T7Sb UiecKwk5MYXdGST5nEN8x I5dTBVrECstz1H4gGQ1H2 ZcsfTvvk1cl6koBSSqQMd rW30btBOrq4C6 ONVsjYT3ZEXfkUwyWuWgg G93Oyc+DSSzgVumj5YkDu akv6qxv6njgDj1ZaRrJGA gdmFsaWduPSJ0 h0RzSg97I94oQQzmFAAbT QYvIJYqHUEleCpyhq9saF 9wIi8+PVImvJR7bWQ1hN7 vCpBxFkU8UXns Y205LpZswIMnZkbyo3bgi 0bqlVh4DjYhVOAvtyJzvE fvKAH5n5RlAt06H7SktQr mg3YhOgz6qk12 mUArj4G8mUC6K0AlSETcj jbbaKQjkUvkPY1oMPVwya mdHLCdqO6gRQPkK4w8CgF pEeT8JKxtI4Yv huI0IUUwtVOnQPJmmBJVo L9hwaadi5canbxkEzAnJU MzMNq8NMj1EYLumPcwVkR xJAC3AiZ4AJQ4 yLVcjL8ehSirngsvzA0mE yc+QQd6d5jlwHYvVS2ugQ K3IC01RP95oYRht4E5lGY 8F5XgUFSiolhl xmqpoIA8YKUkSSUifI47J j7rzTakWc9xTMBdTVH9TF QzvTDgE3IqbV1aVqYiGJO qLSRbU1ZrpFEv ERyeA151BYwwCnT0TGFva bVbZ2ZrLOPwrDjsIwR0k7 G5Ov2LEO78TT02UM69cAU jx5T1qWX6J4Db SGDylaenxaiodAY8BHDjO TAbnP36Sl5ysGkuUq8rAV KmWGE1FMMuaSXmG7VimG7 yOiAjMDAwMDAw W2SnnSUpGWfmG524VFcdZ eB0HQVlbbYrD9YsVDRwvF yjNbG9u3N6Je9QMa62DR0 1VH96cGFli7K7 wJE4M0AlXVPlfpbsvyaan XD8RMHkGVJniT28Cb7meU zbXj5vRVUoJZA2FAYsxSN xR6GyhW4yAiBx MOWfNRHaV1BxkEBpSXjmZ 255HMsaHnF6CZUhlsIsO5 KlNCEzlRbeZuD2m1Q8Bd8 PNWfewfo8A1Tc PjwvdHI+PW63WYNoNY65l WKqvISoj2wlpJm4WwRhJI NhTHG6aFcdEGjft2QlUDV sL97ibHPhj0M1 IGN (more content not included)... [facility] Coding Summary HTMLBase 64 KrydbppyFXs0dZh+PGhlY WQ+OP2XRANlW01imHLluW 3JZ3sCWE3WUCEMCDDYIL0 MQR4fpKM8WDbkN0QeodWq MghrwWAxQV95QUa9DUJ6a LpcNYphsU0gpLYkE6v9Cj NyBF43qD92EZapZQLkCnW 3LjZpbjsgbWFy C2htKdByiKLfFnt+PHRhY mxlIHdpZHRoPScxMDAlJy XhyPteEF7hOq2jKVPqNDV vbGxhcHNlOiBj x4ipYNKxYTtsTF2fmXzrV 6BjfCW5UGKes8b1Cc27iV I+IAUvGWY2mMedPPwve05 3SdXrr7xgGSI0 lXJvOPrqEYY2T82wu2U8H HXpVQHfYFV1fCH5fR4jhA mqozacR6OomBTcUpE7XYI 2eHFhhF5ghRsd fipesB9hJle+X54AQU8TJ GGOYH3HHro4J5YdJqazwC I+UH65NAMdUD37aEGcqLJ ic7jqrIf8YeOq MBPgTAV3vFcwFBexf8NfR ZMhE44rkMXsg7H5XRXjlX lgpSUhPsJviZB2bK1mKOb kztzhz6aqxfes Qcavg0pvco74eX53H90aY DmnLVZvKJT4KNAfFEXxmB ytyh9egZ5xMx2+GKzuq2m qb5eqiLi0CeOx DEMawyUvuOxtTUJ2v4YcW y83U6SqoBimo5YzSfx3sn 10lHJol1C8mLK8CPcbVHT hdJ3eYXojIzC4 QQAuUaPptO99rIOeMJoaN u9fhNsddYhgDC6sKGKxcd wjMKHygW1mBTGerTUheNv dRW4oGQLnbrez e659JmIoUJK2AEQcnUAjJ 7WghP7uOjVzRVYpJDOwA3 PbxISrBSsvB109LRxkWbH 1GGUlbyDrZ2Of IEQbrCcaCjU9c4Y0Ih3Tw 7LcutntINO7ZKlgMWPmGr ZcCtBySnX4U3BoJaw1TUS jsWjiEB8nE2Ff HBIwytpkzbsnkVM0GJJjA XGgaC12gLRmNOynYg2cq3 F1g640OJHyHKQvsF48Uu0 udDogMTBwdCBU yR9fgazbt2bwjboqJuLdO MBiJHw4ZUm4LOBhaUgxKj GnIJX7BjE8VMV4tXBncH3 pjDtczwigaL1x Oyc+G96gpG8vWVM1UHL2u yykCHWsilEwYQ67GL46J5 RyPjwvdGFibGU+PGRpdiB waBfbEU8eDbUy x0qgz3DhGIjwZ5AtTCMmJ OmgQvi6RFUbVHC8nGK8bG 2gKIMcXCqje4H0fIY9Y1O peuYivi2ra3ec XTEyEJbaF42tsRDkn6R1K LXczOX3EJAgoPbgSxScvL 93Oyc+FEFwjIwxx2QcMbz rv4tay2lhgMp7 JeLjURZjhgTgfWmuICZ2v 2TbIh29H37nJQqnJIAvCC QzLRAjXVXmfYsxpu2yeP6 wIi8+PGNvbCB3 mTM1fF1pUNLrCmQ9PBdxU 527SsTtuBYvDrgwo8yxc1 fqmQn5PkKwGWDldaAixQv nCHY3f5MlQs05 F89dZJziOQPaCYAcNQVtZ XXgcQhwxd6uvG3uOk8+PC 7av7byqi04zL89nZN+PHR rUSJ0fVpaYTbp WZVpeG6gVSdgWqY2QWDkD lCzsJ20yBJsNAjoGj7njS btdImqQK0xMTFscyela68 4RoDbi1tuFNDh zHKuBVfkCXX1V26qo2K1M GBsXRGiHIV3dEY8yK5ftD lnbjogbGVmdDsgdmVydGl jILccLIvbG277 IHRvcDsnPlBhdGllbnQgT fKpJHn3Q8InSog1DLBhcI ihKO9pkCZmSWcsIh8qyQi bpRfhGL1iWFTf kkmpe663FqJdx5aqZAZzp LEcCOfuCSC0N58he6U2IQ WlCZOoVHB3iDD1qN3mdPt nbjogbGVmdDsg ezUxfQkxWZszLCjbY135F HRvcDsnPkJpcnRoIERhdG F8PY47CN12nPQkr4I4qJD 2S0QsSCMsofuu sdsblKH4EWDxLXQnrD31U y9zfXjoYg9yXSXcFET9YZ JfoPWsC5JmvB2lLdQqPHU eFJVqK7AtxGBu TTxbE784ELbnYuV6QRNak mAnI7VbAZFeyWseNrM8c4 T3Tf2WW6U5HC07UI09tPS mg6B5zYC2Z1Bm GHUpkbhwixerxCH0JUVzX KOakB21Zh2mjZkiCu7eIB ErNYU1NAFsfDUvJ6CioS8 yOiAjMDAwMDAw U8BplQLeEMysT062QEaxP mQ8OWMojcBjE1QoWGIbvE kqSsG2k7X0Wf7NOWa5AQ8 7LK82wLTrf8H5 rYO2O8GgFIVzdugdrmnbo XE8TWQdCAIizV68Wy4okD oyFn0uURLjVDW0SUSdhZQ nK0ChxM6vKzPo TUZsWOUaR8BghGCnLPmyF 354LBsaUyC9FVItmvSaF5 RxEXDbvPsgRsN7z6T4Qt0 CNRRzHY81RWK3 bMA9QT52FG00V9XuIanvk GFibGU+PHRhYmxlIHdpZH RoPScxMDAlJyBzdHlsZT0 bAn8kXGBeTYRc qOrxxIDbKeVoz4ewWHUkF UyvBB8irSzuC6XgnZG1RK Ons3t9Di74T25xT2TllII +YTUzlHE4wDH6 eR3vNmNaQhZ1DLhtX295N iGplBQfTzyxj3fik4afmR g8ZmN2URBqbtEjbSzwPIR 8b7MgOv32X01z IHdpZHRoPSIxNSUiIHZhb Exxxt4owT9nDz9+PGNvbC K7lFR9xT6uJvFaIrR5CIe qD397ZpVhbICt Enptp2jez4wwiAp7KeSlC QSgjhSvwRfoPFO3x2PxNf 49J4JnbVsds7AaPiz7np1 0dUFfi1W5jUJ2 K3OiXRFnyliqvRCmoYvfC L2wFBPrdsvcKKDdiP9bHV ZtU9j4EgItFgJ8YFweX8L xuqM8PFGqqVSv ESxcQFA3M35nq4D8WESnH GYjCFT7aYQ2aP2gmRugeo ogbGVmdDsgdmVydGljYWw jHWkjY793ZQKy uJtgUFWdjV9bLOTaoLYib WxhNO0zLOOzcrgoCenTNM wsIFNIQVdOVEUgTUFSSUU 2H3HtRss9RSOh aAgcQA5mxEWwZJkvRz6sf UbarNvoHX2cSTAkseltKD LvqO1xSTXouAHshEzrJE6 rQCJvawxkv515 AyWfWBL3IJXisZYhT1Pvw N5xHcUbHCIvWTGbO8QwoO TsYAxhT179WLnfFoK9ERU rozOnD2AlVNQo tBeyDiZ3p9U5Am7qSI4yW y6qGZp4NZ17CD24wMYsb5 W1cJW7Q4SsHTZuoxgugkg rtTP7KPPxDZYh uK11bYHeEIdoLu9hc2L7n 926KAIlUHMokN20Ck8eaO fhVDTmiRRRtF9cdxljs3i vcjogIzAwMDAw RJl7LZk5KVNjhCbpDnObR WS9UtB0XGC8nJTpxE8xvE huhoefbF2rKle+MzYgWWV lysJ9V3QqIha7 WJFncWeyUR6itNNpFXvgU o1xzDcmkRngUY1dPROcmt csUPWcsB1wSRZnzABnlOx kRV4vNTTxodjb e402TtFmCEA4HHDbqEHmS 0NweB7iAuFaQYGxANPdC7 WtwUBbNBmoV180BJzmUcK 9SOYvmxCcF6Pa JBZznSypCzD4c7D8Mf0OL W6FZKG8N3LnRte4WFFhbQ ptNB6iwBKwYBjdEl0nxRk nkYsgCP8tIFXq qqkkCEPwkJ9dYAPpiTVcy DyxTH0uQDXvalcej661Lt MoYTJ2ASKyuOXlO1MriW8 yOiAjMDAwMDAw Y7DpwAWsWJvlG055ZXxlF kW6LEHchbCvK8AxWYJzgQ pfHvN6n9F9Eb2XrTZlY1I mS8y8W4PvYnoz dHI+JM47GNWcQS91cKHra ISyg4jzfLz1LrArXYDaMA K3jDtlLZowx2VeNYOcR03 ixFPrd7T4IBXs zHiikPYtJdXukKN9uL0wG Ldrzphhx9mguplyJeowu1 yfat99iV77H45lEMveBZE oPSIzMCUiIHZh aTbaei5nyT1jQd8+PGNvb BM6oNX3hO5aFzPuHwD6OD weO841LsNjuMYlJokea2s fl0uxsMz8MqKz JOGdxdMukYbgHDV4r5FeX n96N64tHXbbWQXoIKKkLE UvXGJjbPxcrw2gxR7pBx6 +OA5qz8alff98 zL32nFK+KYMqKKW2jAnfL ZezYPNycL0dDTgvVsS4YJ TxVoReeO09qGGmRFkcMl9 wnLmmqSrmAO1n ANRfmajuw905AyEks0zaS PKxdFUzBShnJCY7D84rs8 E0MVWxCKCwSRY5mAI2pR9 hbGlnbjogbGVm dDsgdmVydGljYWwtYWxpZ 442HRJwaWlfSyFssQDwV7 udmcUUYV0jEjnfzRN+PHR hAUX6qQurERvy DOZcrF2kGCGpY0v4XbGzN uK6QGeuG0VectH6VOYkrQ NkGPKjnBMDqT4jowxhk5r vcjogIzAwMDAw JCe9ISy7FYTtuVfyWrOyY GZ6QxV1AXU3hDIqyF7nrF xeurhssY9cNes+RklOOjw vdGQ+PHRkIHN0 iPefSPppZWKhvZ2rSNFfY 5h9DoLdKoG9MYqrN1Xmje P1UNXemDEzDICsaWQKiT1 uvcqcu2mggxhq TgPkYIKcTSq2MVd8MFSpo OczSsOwSHG9FmJ2JGS9wP YsxZ0qvOrtcpkdkV4vMlp +TVJOOjwvdGQ+ XWIiAVR7rQqgEEwrTFPwq R0mFNZgT1r8FeVyGxT9CG sjK8UtgmJ2OCWmlQQfLLH ylKQUpK3lujeg b9hithepTjJsYNOkXVe2F Wx0WAZjoCvvEnOfNGT1Km T6USV6bPAcjU6phYbidgq xtT9sCrj+UGF5 YNG8KP43QI34W8VbZbbkc GFibGU+PHRhYmxlIHdpZH RoPScxMDAlJyBzdHlsZT0 gIu2nZITzOBEa bGx (more content not included)... [facility] Coding Summary HTMLBase 64 UjjchidhVHs1fNl+PGhlY WQ+RE7NWLFbA99asLWhcT 3FP3nRLO2TXIMQOEHYRF9 YDT7xiZC3VMjdO9YwhhEi YzgoxDPgXK51IAq3GBF8q GkwGMynzR7ciCFwD9f4Vv YkFF81jQ34TVuaQWZcOnV 3LjZpbjsgbWFy J5gtHjLgeHOyAfi+PHRhY mxlIHdpZHRoPScxMDAlJy RnnChnSS5fYi3rGFGfUYX vbGxhcHNlOiBj z2oyFVXtACorBX1kjExcT 5VkmEI0AIXfn5p2Ms22mN I+QFTuOOA1aEtzJXeiy78 9EsIsq5teHFZ2 tQIkLStaSCB1W87ol5U6C TEuXLElXKD3kSO6zB2ahW ehsfpkN6BxhJGgWvK8XWI 4qCQuzZ4icQse ezxjpR5tYrv+X25CQP9BH QKGGZ2JXob0V5HwSsugsF I+LU76DMWgZB77nOKugTK pv0ujpWd8YmGc VSZaPCZ7dTnwIJmdk6MnS HUvZ85qdEYyu1R9HCXhkO awqWXjYyNjcJD6wP0vAMs xqpmkq7ujzgnp Htvdz3vjgf69dX26B50xO UlbGWEpAPB1IGNoPQClaL ught8xeN4tTp8+BAose9z ta2ehkVe5ZvMv BGYfuuFcvSofDYW6p8SzJ o09E8FvuLdpf5CaHqc5cx 53hLDkg1X6nST7SWuuRAO sdE9wMRzkZyD2 NCWzHhFbaY25rIKxHGcjO w9huNoxsTqkEM7gEJMgss goRZBghO9nJAPzuMFiaMg fBE4pSQCoufnf h236AiWmBZJ1XNXepDDvR 7HunX4dGaPyDJIoAWNxB6 OqwBPiWOnvM616YCjbAdD 9BWMmnuSrO5Gh QWBleLmqWsW2j2Y6Lp4Tv 2QocosmMLK2SYlwUIUxTa MgWlDvAiY6N6EhRbe6ZEC agVrwTL4oD3Jo JTSewdpkrldosOT6KUKjR QXcgK58pKHzIMkyKt8zh5 D1v185BXEdSBGtgA56Vv6 udDogMTBwdCBU cJ8ytqvrt2swavvoGsXbF KExWIw2QCp8FSJvpWenQr BcVFV8UxI7RKN1cFVmbQ5 xfDmcszbteA9m Oyc+J65sxV6xAMG6CUW3c wnmTWVjirKvTQ97FS29U8 RyPjwvdGFibGU+PGRpdiB tsVsaUU6pXcZv j7dpa2McIRezD1MoCTTwL YsjNby2DSQcVOT5wIV4aZ 6fIWVdYFyoo8D6jNF6K0E lfuSgzi0oq9id BDVzNKmyP26zeEVrx6L7X ZTziKX6IITsqAieJhWisM 93Oyc+DJEihBiwn0LiUyq xp3klu9jooNq2 TmEyOQChtzAtaSklNTJ7v 0BhQt03A77gWJfiHVQtIW FzTUVnQTXrtYqqig8kaO7 wIi8+PGNvbCB3 fQU8vA3fNJEfStC0GMtjC 571OtOjpIHcKsgnm5txi2 umrBc0MvHeCXBwqrCxoAo kYON9s1PgQc98 B72yZBvtHKObQDLfFILgX ROgzUzcha6wuG4gDn2+PC 8ut1aqiv02wI82uKM+PHR pHQW8sDwjBDgb UGGnnI0yKNxwBtH6DDOcR pZdeV71tDDdZJriOu1tsX vzuEaeWV6tHVKofeesv36 6VrKey9ylSEQy oEOfJGygCII6D03cp8H7A DZkFYBbXTX4xEB2tA7ncJ lnbjogbGVmdDsgdmVydGl qLOndQAllD164 IHRvcDsnPlBhdGllbnQgT cHfEFp9W4YhCtj1NQTlgC voMC0kiSVwWKiwWd5wzHc rrUqvJG9tWLLx gbwjm742VjQnb6xlKOKfr NAbOYvkDST2H06jn1S6NO QsLCYfURL3vCT5fR3llIo nbjogbGVmdDsg hoPikQvoYAgfSZleD028Y HRvcDsnPkJpcnRoIERhdG G6NQ10AP68tJVhq1R0ySH 9J7MbUKTsyydi nltkwAS2OXGyBYMbvA17E o4wwObbAq3xKBEiFPT0AX NzgCYdT6LvkZ5wSwQlZPA tPLFfT9QizESf QGhrQ370GToeDrK2HTVmf jOwZ0GcJXDhxYchRbY8m9 Q9Yc2ZC6C3SK39XD90dWQ ry7J2hYW2P4So FEBljnpbxjnmnXG9SAIsR FJyxA80Lo5qbBgbUs6kRS ViPKW4EWKcqUJoI8UyuN4 yOiAjMDAwMDAw S4CbvNToTXiiO519KSdmY gJ5GEFxsyEjO1UhCWOnoE toBaI7i7V6Bw7BLJk1TQ9 5WQ69tWRzs2O0 wFG7D3IqYHRkkyuqiusbo KI4GIOkFWKzjX84Es9twS srUa7yIWKiBTQ8RYYjmQF qI0IpaB6rBpJk QNOpWTRuW1FdgPDfIBaxN 904IFxjLrH5TLCvpuPgJ4 JnSJDnwUugAzS6i3Z1Xo1 KGZUkBK87YQD1 kCJ3TN70KY34Y2YqQukpb GFibGU+PHRhYmxlIHdpZH RoPScxMDAlJyBzdHlsZT0 wLb8iLFGnLLEr mSwvvXVbSrYiz6lgEIIkG ZkfNA1pcIqsC6SzzKV2ON Nis7s6Hk56P38dA4VnzKX +ZTDxaJY0lOU0 nX3cJbCmRsF5YXwpZ396N aLxrYTyNmbsq4bwl6kotL d1QtC6JVGyqtGdhNsdQKR 1z1VbQm35E47c IHdpZHRoPSIxNSUiIHZhb Yclzd5xuO8uOm6+PGNvbC O1pCK9vX1wJnSvUlR9AUo rT442KjUsdSFx Kftlc5ues0cvtSm8LyKhB UQbzaWwkMbsKUL1k4DdYx 76Y7BiaZubp5FfJnz5hr5 8xWRjo1V5iLR9 U5XnRBGhsdljoJRalDepH R0aZIZvbnqtXIJyqL8xIP PaX3u3GxEwTtZ7SZkbY1T ishK8EZLyvFTj ZEqvONW7K17gq8D4OPQeM ZLdZIT0bCZ0aE7wvRtada ogbGVmdDsgdmVydGljYWw gRFkjD070XYVv xUryLRIguN0fSDEuaLAor KwlNH5dYYWmthtmKxnORR wsIFNIQVdOVEUgTUFSSUU 4R2PpExx9LVAn iVrjRU1nkGPmEXfbWi8pk ZfgeSxzFF0tTAWszorjAI CslJ3jCKKeiWHhoJbsAH8 oXRHexfmfm941 SxZmPWP2NLZtlNFuY2Khf O1oWhZlIVBaWTMeI2LvgY YrSIrcI027KQagVmR9MHO kszFzU0OlGOOi gXdvWoN5s0E6Vv0uNZ1cX z5yVGr7IY87XE21aYYop8 S4nGQ6Q3QtGEHgshsnpxe fqGO7QALnOAJg rB81eHGwHGdoKh4mm6K4q 443PNGiXKKzhA56Du0ebB nbRTGnfUJJeB0nihaym4b vcjogIzAwMDAw YQh8QFr4BPPwvMuhHiOaO JI3YzN8DUT9iNRrfJ7vwY cxammpvD6yYyl+MzYgWWV vifG2U8GlXlm0 NIXzuAmmFZ3eiOEsJEjwV u9cyWvxzFxbDT5kXHHdqr tgSZCnvQ9sWPLexVRglYf dPB4kBKRuxdby w563VdPhRUP1XQHntMUfU 3AhhH3xFsXuIRJlCZFuJ1 WtzPFyWNtfO868CAfhDwY 9OXMvjzLyZ1Yy CSYlyWljVmZ8w5D5Yq9AD F9BHVE0F5EcKla5RQDxyU czAM5skJAcFEnuBz3ldUp thKhzYR5vNIBs lmghTQMqjP7mUHWlwNLnm ZdkJN5iUVMpayjmh806Dt BjHKY5BIQsnPKtI3RckZ4 yOiAjMDAwMDAw I4EacYWfCLiwL314BPqjZ xB4RPNkvtJyJ1OqGHVcuT kxZcR9q8X8Zh1NfRUxW2V zJ3n5W8CyQacr dHI+AK67UPTpZL05uNRso LFdu0wkhJy0AdTiKBAtXI C6yMieMNagq8WoLVKkQ57 neHWvo2M2NBWw nIgwcKFiSyXgjHJ8nY4yM Bhekgqlc9yeyramKhats1 meqo86wZ42V78nPFzuRHA oPSIzMCUiIHZh tRfzmq3rxG9lMp5+PGNvb WE4sUO2qK7zSpQhWtR4QY zjI449GsRciIDzModvg3v zd5wgcDb1UtOm ULSoyfRkcRfgVTV6i6XtB h36N23lUYbhJYNiOBKyKS TgBAOepUaqeb6dzX9yBq9 +LQ1nz9fwvp82 uW72zUV+PBEmIFR1xCywV InaPHAozZ8cDTusYfF6UJ TyPpTbxL06eXHjVRtfUs4 fzFrksVflVY9e ZPDybavxq103XlBhs1odF WGjaEMtPFdgFRD5X98wq7 W2IQLiVKLwRWZ5iWH2gP8 hbGlnbjogbGVm dDsgdmVydGljYWwtYWxpZ 979NKHmuXviGqMmoQHrG5 diwuKDAJ3cFgjbnAA+PHR lRXX7xIltDPck XQFecB4tQPCdX9f6MfVqT lN9BCroU8TwvmD6QUHopB YwMSNlzIHYkL7tkhmeu6e vcjogIzAwMDAw JDq1ORt1QWNuyVgbQkTuU MG4JzB0CAP8dJYhzN5saP yhgzgayG3cTqp+RklOOjw vdGQ+PHRkIHN0 mQigYBvkOVGtyG9zTJGiW 6e4JbTlPhI3PPxmX6Yfjl Z6DRXqoANdZZIubZCBkB8 uoceav8colvdq HvKaXPKrRTn3MUk3SENws RmmNtXmHMU2JnS7KFY9hM ZkhI8rmZfakzjxlS0oZjy +TVJOOjwvdGQ+ WLXlKWE1yNdgAIzcWNTeg W0mODLmJ7r4KlXqYyH6JY pnU7EokrG4PPBlzMBkQGL yuFFChN0aqviv p5hcegqrDdPfSWMyJJi5V Tk9BJIlwVfwDrWwOWG6Fy P2AFN2cMZolS8yjLolhnn stV0hVma+UGF5 FMP7MD09RI13F9AhKmmpx GFibGU+PHRhYmxlIHdpZH RoPScxMDAlJyBzdHlsZT0 bBb0kBXLvBMZi bGx (more content not included)... Normal [facility] ED Note-Nursingon 02-17-2021 ED Note-Nursing Patient called and informed of positive Covid results. No questions/concerns. Normal [facility] 2019 Novel Coronavirus (CoVI D-19), TERESE on 02-16-2021 SARS-CoV-2 (COVID-19) RNA TERESE+probe Ql (Unsp spec) Detected Abnormal Not Detected [facility] Comment on above: Order Comment: [phone] Result Comment: Yamilet ents who have a positive COVID-19 test result may now have treatment options. Treatment options are available for patients with mild to moderate symptoms and for hospitalized patients. Visit our website at [email or web address] for resources and information. This nucleic acid amplification test was developed and its performance characteristics determined by [employer]. Nucleic acid amplification tests include RT- PCR and TMA. This test has not been FDA cleared or approved. This test has been authorized by FDA under an Emergency Use Authorization (EUA). This test is only authorized for the duration of time the declaration that circumstances exist justifying the authorization of the emergency use of in vitro diagnostic tests for detection of SARS-CoV-2 virus and/or diagnosis of COVID-19 infection under section 564(b)(1) of the Act, 21 U.S.C. 360bbb-3(b) (1), unless the authorization is terminated or revoked sooner. When diagnostic testing is negative, the possibility of a false negative result should be considered in the context of a patient's recent exposures and the presence of clinical signs and symptoms consistent with COVID-19. An individual without symptoms of COVID-19 and who is not shedding SARS-CoV-2 virus would expect to have a negative (not detected) result in this assay. Performed At: [facility] [id number] Shanna Correa PhD Ph:[phone] Performed By: #### 6 [id number] ####[facility] ([facility])[address] [place] [address] ED Clinical Summaryon 2020 ED Clinical Summary [facility] - Emergency Department [address] [place], [place] [id number] ED Clinical Summary PERSON INFORMATION Name: TALHA BELL Age: 35 Years Sex: FEMALE : 1985 MRN: Acct#: Visit Reason: Cough; Sore throat - Adult; SORE THROAT, NAUSEA, WEAKNESS Arrival: 02/15/2021 13:59:29 Discharge: 02/15/2021 15:33:00 LOS: 000 01:34 Check In: 02/15/2021 13:59:29 Checkout:02/15/2021 15:33:00 Address: [address] [place], [place] [id number] PCP: SAVANNAH RODRIGUEZ PROVIDER INFORMATION Provider Role Assigned Unassigned SHOLA HONG ED PA 02/15/2021 14:02:31 Vlad NICHOLAS, Dai Sheets ED Nurse 02/15/2021 14:20:51 VITALS INFORMATION Vital Sign Triage Latest Temperature Tympanic Temperature Temporal Artery Pulse Rate 100 bpm 100 bpm O2 Sat 100 % 100 % Respiratory Rate 16 br/min 16 br/min Blood Pressure /67 mmHg /67 mmHg MEDICAL INFORMATION Medications Given: Medication Dose Route albuterol (Ventolin HFA 90 mcg/inh inhalation) 90 mcg INH Miscellaneous MAR Items 1 EA INH Allergy Information: Levaquin PHYSICIAN DOCUMENTATION Patient: TALHA BELL Age: 35 years Sex: FEMALE : 1985 Associated Diagnoses: Cough; Exposure to COVID-19 virus Author: SHOLA HONG Basic Information Time seen: Date & time 02/15/2021 14:25:00. History source: Patient. Arrival mode: Private vehicle, walking. Additional information: Chief Complaint from Nursing Triage Note : Chief Complaint 02/15/2021 14:05 EDT Chief Complaint Pt presents to ED r/t sore throat and burning when she coughs. Pt also c/o h/a. Pt states her boyfriend is here now and is COVID positive and she wanted to know if she has COVID . History of Present Illness Patient is a 35-year-old female presenting to the emergency department with complaint of mild cough, mild sore throat and exposure to COVID-19. Patient indicates that she has had a very mild intermittent cough over the last week and started having a mild sore throat over the last few days. She indicates that her boyfriend that she lives with has documented Covid over the last week and a half. She states she is concerned that she also has Covid and would like to be checked for this. She denies any fevers, trouble with breathing, vomiting, denies any abdominal pains, abnormal problems with her bowels or bladder, crushing chest pains, denies any history of asthma, or COPD. Does state that she vapes. Patient states she has had a hysterectomy no chance of . Review of Systems Constitutional symptoms: No fever, Skin symptoms: No rash, Eye symptoms: Vision unchanged. ENMT symptoms: Sore throat. Respiratory symptoms: Cough, No shortness of breath, Cardiovascular symptoms: No chest pain, no tachycardia. Gastrointestinal symptoms: Diarrhea, no abdominal pain, no nausea. Genitourinary symptoms: No dysuria, Musculoskeletal symptoms: No back pain, no Muscle pain. Neurologic symptoms: No dizziness, no altered level of consciousness. Health Status Allergies: Allergic Reactions (Selected) Severity Not Documented Levaquin- No reactions were documented.. Past Medical/ Family/ Social History Medical history: Resolved URI (upper respiratory infection) ([id number]): Resolved.. Family history: No family history items have been selected or recorded.. Social history: Social & Psychosocial Habits Alcohol 01/31/2020 Alcohol Use: Current Type: Wine Frequency: 1-2 times per week 08/22/2020 Alcohol Use: Current Frequency: 1-2 times per week Substance Abuse 01/31/2020 Substance use: Current Comment: Denies - 01/31/2020 19:00 - Ewa Baca RN 08/22/2020 Substance use: Never Tobacco 08/22/2020 Smoking tobacco use: Former smoker, quit more Electronic Cigarette/Vaping 02/15/2021 Electronic Cigarette Use: Use, within last 90 days . Physical Examination Vital Signs Vital Signs 02/15/2021 14:05 EDT Temperature Temporal 37.8 DegC Peripheral Pulse Rate 100 bpm Respiratory Rate 16 br/min Systolic Blood Pressure 101 mmHg Diastolic Blood Pressure 67 mmHg SpO2 100 % Oxygen Therapy Room air . CONST: -Well-developed well-nourished. -Acute distress: No -Vitals: reviewed. SKIN: -Gross abnormalities: No EYES: -EOM intact, EDMUND: -Sclera conjunctiva: Unremarkable. ENT: - pharynx pink and moist. Uvula midline tolerating oral secretions without any problems. No tripoding or hot potato voice appreciated NECK: -Supple (rhqv-oe-[id number]): non-tender. -No swelling of anterior neck or submandibular space appreciated. No pain with palpation of thyroid/cricoid cartilage. No cervical lymphadenopathy appreciated. CARD: -Rate and rhythm: Regular -Edema: No -Calf pain: No RESP: -Respiratory effort and chest excursion with respirations: Normal -Breath sounds equal bilaterally: Clear -Wheezes: No -Rales: No -Speaking in full sentences, oxygen saturation 100% on room air BACK: -Signs of pain with (more content not included)... Normal [facility] ED Note - Physicianon 2020 ED Note - Physician Patient: TALHA BELL Age: 35 years Sex: FEMALE : 1985 Associated Diagnoses: Cough; Exposure to COVID-19 virus Author: SHOLA HONG Basic Information Time seen: Date & time 02/15/2021 14:25:00. History source: Patient. Arrival mode: Private vehicle, walking. Additional information: Chief Complaint from Nursing Triage Note : Chief Complaint 02/15/2021 14:05 EDT Chief Complaint Pt presents to ED r/t sore throat and burning when she coughs. Pt also c/o h/a. Pt states her boyfriend is here now and is COVID positive and she wanted to know if she has COVID . History of Present Illness Patient is a 35-year-old female presenting to the emergency department with complaint of mild cough, mild sore throat and exposure to COVID-19. Patient indicates that she has had a very mild intermittent cough over the last week and started having a mild sore throat over the last few days. She indicates that her boyfriend that she lives with has documented Covid over the last week and a half. She states she is concerned that she also has Covid and would like to be checked for this. She denies any fevers, trouble with breathing, vomiting, denies any abdominal pains, abnormal problems with her bowels or bladder, crushing chest pains, denies any history of asthma, or COPD. Does state that she vapes. Patient states she has had a hysterectomy no chance of . Review of Systems Constitutional symptoms: No fever, Skin symptoms: No rash, Eye symptoms: Vision unchanged. ENMT symptoms: Sore throat. Respiratory symptoms: Cough, No shortness of breath, Cardiovascular symptoms: No chest pain, no tachycardia. Gastrointestinal symptoms: Diarrhea, no abdominal pain, no nausea. Genitourinary symptoms: No dysuria, Musculoskeletal symptoms: No back pain, no Muscle pain. Neurologic symptoms: No dizziness, no altered level of consciousness. Health Status Allergies: Allergic Reactions (Selected) Severity Not Documented Levaquin- No reactions were documented.. Past Medical/ Family/ Social History Medical history: Resolved URI (upper respiratory infection) ([id number]): Resolved.. Family history: No family history items have been selected or recorded.. Social history: Social & Psychosocial Habits Alcohol 01/31/2020 Alcohol Use: Current Type: Wine Frequency: 1-2 times per week 08/22/2020 Alcohol Use: Current Frequency: 1-2 times per week Substance Abuse 01/31/2020 Substance use: Current Comment: Denies - 01/31/2020 19:00 - Ewa Baca RN 08/22/2020 Substance use: Never Tobacco 08/22/2020 Smoking tobacco use: Former smoker, quit more Electronic Cigarette/Vaping 02/15/2021 Electronic Cigarette Use: Use, within last 90 days . Physical Examination Vital Signs Vital Signs 02/15/2021 14:05 EDT Temperature Temporal 37.8 DegC Peripheral Pulse Rate 100 bpm Respiratory Rate 16 br/min Systolic Blood Pressure 101 mmHg Diastolic Blood Pressure 67 mmHg SpO2 100 % Oxygen Therapy Room air . CONST: -Well-developed well-nourished. -Acute distress: No -Vitals: reviewed. SKIN: -Gross abnormalities: No EYES: -EOM intact, EDMUND: -Sclera conjunctiva: Unremarkable. ENT: - pharynx pink and moist. Uvula midline tolerating oral secretions without any problems. No tripoding or hot potato voice appreciated NECK: -Supple (aske-mv-crzqc): non-tender. -No swelling of anterior neck or submandibular space appreciated. No pain with palpation of thyroid/cricoid cartilage. No cervical lymphadenopathy appreciated. CARD: -Rate and rhythm: Regular -Edema: No -Calf pain: No RESP: -Respiratory effort and chest excursion with respirations: Normal -Breath sounds equal bilaterally: Clear -Wheezes: No -Rales: No -Speaking in full sentences, oxygen saturation 100% on room air BACK: -Signs of pain with movement: No ABD: -Distended: No -Deep palpation: Non-tender EXT: Gross appearance and use of all four extremities: Unremarkable NEURO: -Patient: alert -Gross CN or Focal Neuro deficits: No -Oriented to: person, place and time. -Appearance and judgment: appropriate. Medical Decision Making 35-year-old female presenting to the emergency department for COVID-19 swab as she states that she has been exposed to COVID-19 at home and has a mild cough over a week along with a mild sore throat. Patient states she is eating and drinking well, denies any shortness of breath, fevers, vomiting, crushing chest pains. Denies any history of asthma or COPD. I indicated to the patient she should continue with supportive care measures discussed supportive care measures in detail with this patient along with giving her an albuterol inhaler and showing proper use of this by respiratory therapy. Indicated we would swab her for Covid this will be a send out test. Told to return for any worsening issues such as increasing shortness of breath, high spiking fevers, intractable vomiting or any other p (more content not included)... Normal [facility] ED Note-Nursingon 02-15-2021 ED Note-Nursing Pt presents to ED r/ t sore throat and burning when she coughs. Pt also c/o h/a. Pt states her boyfriend is here now and is COVID positive and she wanted to know if she has COVID. Resps even and unlabored, vitals stable no signs of distress at this time. Normal [facility] ED Patient Summaryon 021 ED Patient Summary [facility] - Emergency Department [address] [place] [address] PATIENT DISCHARGE INSTRUCTIONS Patient Information Name: TALHA BELL Age: 35 Years Date of : 1985 Reason For Visit: Cough; Sore throat - Adult; SORE THROAT, NAUSEA, WEAKNESS Arrival Time: 02/15/2021 13:59:29 Primary Care Physician: SAVANNAH RODRIGUEZ Attending Physician: Tiburcio Kennedy DO Comment: Visit Diagnosis: Diagnoses This Visit Cough ([id number]) Cough (R05.9) Exposure to COVID-19 virus (Z20.822) Sore throat - Adult ([id number]) Prescription Information: If you have been given a prescription for narcotics, seek immediate medical attention if you have any difficulty breathing or any sudden status changes such as confusion and sleepiness. If you or anyone you know is experiencing suicidal thoughts, mental health, alcohol and/or drug addiction problems; contact the [facility] 26/11 Crisis Hotline -Text 4HOPE to 970769. If you received any narcotics, sedation, or any other medication that causes drowsiness for the next 24 hours, unless otherwise directed: ? Do not drive a car. ? Do not operate machinery such as power tools, lawn mowers, drills, sewing machines, or stoves ? Avoid alcoholic beverages and drugs for allergies, nerves, or sleep ? Do not make important personal or business decisions or sign any legal documents With: Address: When: SAVANNAH RODRIGUEZ [address] [place] [address] Business (1) Within 3 to 5 days Comments: Follow-up primary care provider as needed for reevaluation. Continue supportive care measures at home as discussed with plenty of rest and fluids, Tylenol for aches and pains, baby aspirin a day, Vicks vapor rub for congestion, honey as a natural cough suppressant, [id number] Mucinex. Return to the emergency department for any high spiking fevers 102 or greater, intractable vomiting, crushing chest pains, struggling to breathe. Medication Information: The exam and treatment you received today in the [facility] Emergency Department were for an urgent problem and are not intended as complete care. It is important for you to follow up with a doctor, nurse practitioner, or physician?s web production assistant for ongoing care. If your symptoms become worse or you do not improve as expected and you are unable to reach your usual health care provider, you should return to the Emergency Department, we are available 24 hours a day. For those patients who have received Radiology results, the interpretation of your X-ray as given to you by our Emergency Department physician is only a preliminary report. The Radiologist will review your films and if there is a change in the diagnosis you will be notified by phone. Please make sure you have provided a working phone number so we can reach you if necessary. In the event that you had a lab culture while you were a patient in the Emergency Department, you will be notified by phone if there is a need to change your antibiotic. Please make sure you have provided a working phone number so we can reach you if necessary. [facility] Emergency Department has provided you with a complete list of medications post discharge. Please inform your primary care md/provider of your visit and for further instruction on these medications. Any specific questions regarding your chronic medications and dosages should be discussed with your primary care physician(s) and/or pharmacist. New Medications Printed Prescriptions Misc Prescription (work note) Please excuse from work 02/15 through 02/18. Refills: 0. ondansetron (Zofran ODT 4 mg oral tablet, disintegrating) 1 tab(s) Oral 3 times a day as needed nausea/vomiting. Refills: 0. Additional medications on your home medication list not specifically addressed. Please contact the ordering physician if you have questions about these medications. acyclovir (acyclovir 400 mg oral tablet) 1 tab(s) Oral 2 times a day. amphetamine-dextroamp hetamine (amphetamine-dextroam phetamine 20 mg oral capsule, extended release) 1 cap(s) Oral once a day (in the morning). Visit Information Allergies: Substance Reaction Symptoms Type Comments Levaquin Drug Vital Signs: Vitals and Measurements this Visit (last charted value for your 02/15/2021 visit) Vital Signs This Visit Temperature Temporal: 37.8 DegC Peripheral Pulse Rate: 100 bpm Respiratory Rate: 16 br/min Systolic Blood Pressure: 101 mmHg Diastolic Blood Pressure: 67 mmHg SpO2: 100 % Oxygen Therapy: Room air Measurements This Visit Height/Length Dosin.480 cm Height/Length Estimated: 157.480 cm Weight Dosin.520 kg Weight Estimated: 53.520 kg Problems List: Problem Onset Comments Anxiety Seizure disorder Patient Education COVID-19: Quarantine vs. Isolatio (more content not included)... [facility] Coding Summaryon 08-29-2020 Coding Summary HTMLBase 64 KeyzpyqjJLn3fYn+PGhlY WQ+VL0VXQNzD18vgNTyqL 3WT1hKYO4DUFGDHVFTAT2 NUJ2oxZB7TLsfY0DtzzEs BeaxnTBrIM65GYq1DXI1h WxmOYvgeZ1maTDtI7o1Gl SsNS37cA37RFmzGWNeOcW 3LjZpbjsgbWFy U5wwIcIhoXJuPsf+PHRhY mxlIHdpZHRoPScxMDAlJy PjaIviOZ2oCv1fEOPhYHS vbGxhcHNlOiBj s0cxBUWnFIqeIZ1vzPxuC 1UmnEH3EQYfg7w2Qe09fA I+RVNnKYC2bUxpQEylj11 7ChIij5neQYF5 kIKmSDmhJMA9K93pi5T9L YJdKJFxLNI0qIC3iL2qeO kluwexZ9RkpYKwElX5TIG 8lRLzvE6tpLzo gyepuS7kYts+N76ZOS7TX FDJVF0DVwd7B3XiNjucdF I+IR24WUXaXX70iNSloHK hm1lylRh9ZaMo JNUvJNF2wPfyZOiwq8TvK OPiN24koYNcs0S3CLKzhF djhYVcNuWdjNX2xB8vTOp umqwzz4zhhzaw Hcgsm3opwl27kU21X55cH RiwKAPcFMP6DLVnHKDovK idwk9emZ0lEy7+YNcrk7t cv9sylJq4ViJo OWRqzzUzgAwiXPW0a5UtJ k29F6EpcTssj6NxLwx2ir 04yFTzp7E1yQN7QTxsIZQ qsR1wVNcqMuY6 CSLnToPjcT84iIBdUIbyE a7mePgyrWirGJ9iEROavf luNIAhqM5lVDGrlNLmcVy dKU0mDKQcwraz p264TfLtHWV0ECNiwTEjK 4KtmP0sKqJgGHNkRUJfY7 CkyQWxQUtlQ664ELfjNrS 9AMHbzjTeO1Fq FBShfMbwUqL1w0Z9Cc8Ei 6IjjpqmZXG1HQclRBN3Sg O5JqScVhL4L9GxPbm4DBJ ryUcrHL8tV2Bv MKYqgxmtrkcvnMI1YMOhU QYmkC49jVXqQBfaBt0fe2 X1b730SWHeRICifT90Nm0 udDogMTBwdCBU uD1tkomjf7tgpfiyThHjQ LAzOJq3NSw4ODIukKdnIo HaIQW7UsJ0YCE5oQQmxC6 yjWzayunpmG9p Oyc+J07oyN2pSZN7MUE5q gnwOKCymwNnEG27IJ37R8 RyPjwvdGFibGU+PGRpdiB cvXvxNW4aEoQg e8pnb6KbCCudT6BlSULuC AkkDov0QOQaTTV9iOP4rV 8lDUUeUXkyu8F0tQY0K9Y oubUfba4fw4al GHPyIDrdS12laPSav0B6W DCrxBV3VQSzhWckQxZfrN 93Oyc+WWUgrSvwv9WfReo mt4zsk6hnzGp0 PqMaKFGknkMbaCpsIRX7l 9GlLo05L01nWWzmNJNmAH RfPEPeVDVigUrisj8fsI0 wIi8+PGNvbCB3 jPW0vV9fXKTsPzN6DCkhO 708OsGdmGHnTdmro8uyr7 ctqJx8IxMzOYDyajHecDl aUJN1o3SeKx60 V25wKBdwIROrTGQtSOQoS WGaoFijsv4hiT1tLj4+PC 8xj7kmzg67hU12qPZ+PHR fXSL7cUgbPXxz MZVabX5fJOqcRsU6UCCiV aTfhH33yFEsPYyyNs8nrL ukeEwcMV4iPEHnfyabs61 0PfUls2hnEAMt kZZcEKtnAQN4K54nc7W5M LSjNJAzWTQ3sXH0sK5gwQ lnbjogbGVmdDsgdmVydGl yFOrzZUvzD180 IHRvcDsnPlBhdGllbnQgT hSxSHu8H2QxPem9ESQsbP zlEQ3noNDdOMynIi5yxWs neTghFY2xRXOg sbuek589DgDvd2qsYNAne DOzPDqfKQN2H60ri5W7HI EgZYEoXFB9eHE7zC4vsHj nbjogbGVmdDsg nnWfaCvmFEzyNYxnR907A HRvcDsnPkJpcnRoIERhdG U0CW75IK26kYDvw4S2jRH 5Z1TrREKuzbwg pkyctXP9YBBrJVPzvG08D c9zxZybZh4dNCUzBXI1VG PftAZwH9VdqH8sEfVyOAV kTCUdU4WuiEPy DRatB767TAmtQgT0MSPdn vTwX4GwYTGetDqsScW0n1 H2Dy0PQ7L0PU07ZF15iKB aq7O7oOW4V9Fc NVOvnmgdvodkvSG3CFEsH YHneO22Zg8ulKihEo4qYJ OaYTJ5IFFozZOfQ7UrhB2 yOiAjMDAwMDAw V0DtkNIzHSuxF776XJikL uT9UQOuhxEsL1FwZNLgtN giVsT5y3U4Eu0BFVg3HM6 2CR44pZJnp5R4 vZT9Z0WzQKFelsrqxvcgw QW8YWIwBEWcrU69Ir7qoK ykRf8kDVQdVPZ1HAWxjPZ qT1SudD7dWhYe EWTkXTNaU5QntZYyPXizW 679LRewByF4CUWjkbCrP3 SePREuaQxcSqF2g1O2Up2 VEJVuSR82RKJ2 xLL2QI94EF99W0AeViokm GFibGU+PHRhYmxlIHdpZH RoPScxMDAlJyBzdHlsZT0 pNb0uPJToXZPz wSxodRBpMtFtc3fgKIWfL JylQR7izWhlL3SjeOX6MX Iao3n9Fs08Q30jX2YqdMK +GXSloJE4gKD3 dF9qTpQsUoF6NEtfY742U pCluDWsPfyhh0gjo1fwxW n1XiD4MMCnzxNzeAtqDMS 5u9TjHs42A94s IHdpZHRoPSIxNSUiIHZhb Utfvq0hlN0lCg2+PGNvbC O3oRX5cJ1fSdSzGvB9RLy cW810UzHqbRZq Yydeb0uhm9dpaBt2DhZiN MWywxNrhXxhKTC1j9HfYg 95V8OvmNxsw9NyDqi6wl2 0iNZna0W5wSW5 B1VaYQJtkeypxKZlxPplG M7lJEKilfaqPXKwyM6mGU KaF7o5RyBdBnF3NUibJ1P sojE3EMLivOGt FSbqQMP5J06je1R8JKPoR COrQIO9xOR0iR0zrVquiy ogbGVmdDsgdmVydGljYWw dOQdcI060YGXk vXnlKOKmuM7uJVHprCPel KwaDH9dXXNhhawmYmtSWB wsIFNIQVdOVEUgTUFSSUU 9O0TnVns8FFUx aLotFO6ryHRcHOipQh3fb JcfqMhzBM9qJMYwbqwsHV NrfL7sFVOjdDHlcLdcJU8 sNVKkehsyr876 BwWiARX6LDSmoFQjL2Toz N2uMhPfFECcCWUiM0ZvmC KiXUkoR210IShtVhR6PUD hzqSbI6XbVKFr mCrzYeK7l8L3Bt7wCW4gT y6jXTl2NC35GQ98rLYru9 J9xAE2F4TbGLVbiqokgew kjGN9KAMuUDDg gU25wJQaYLfgAv7uw7S8t 715TXGoLJImmR09Oi5qvK piEHRwnOFGlK1ckiqjo4x vcjogIzAwMDAw AJc9XGj0ZOQdwUwkUhAbV KU9ZnV5EWY7zEBocC3amN kuwsbehT9pLse+MzYgWWV swbO4O8CiJjk8 IBCxsOpeHV9hcFYfVEcvL j8moTxnaMzpCM9sBXDohl ndKSInjR8mKKEeiOPhwGt aRP2zYDFtzwzf k877XoYaVYP8MACqiJDvJ 6MbgE9mOzEjMSYtACEpH8 JuePLfTSujJ308WItyUiM 4XTGtwpImE0Gi FGYqzJelYsL3c4X7Em3ET U8YMJZ1B3GwImn0CKTgaT xhSL2laXGhDEjiCy9lyKf fyOtgNM6bQFHx eambFSXraA5dECUlcDXhb BriWV2jXXCsnvivd871Yf XjJQF7ALCsuRHiY9MniY6 yOiAjMDAwMDAw J0KhfCWkPTkyG940FLjuV rO5OPWyxyOuA3LrJFAlbU taPzH1f5G1Ij8QFXybmZJ +IP68cz25S1Jj RptbWsj5NOCiUZD4bLY7x S7bUGLxWTidk5Q9sXD6D6 IfwgPkat1tp8viLZGgPZk hC75yiCVts7A3 CTMwfTQ2DFTitQstIuVcb G93Oyc+KIZnjWtks8JkUh bfq3gor8ntsJy2JqMaIGQ gdmFsaWduPSJ0 p7EqQn64E88jOIvtUPPwT RNqRCZsLIAjfRvble6dmT 9wIi8+SWVyaLD1yUA4uF6 xMtDmBcR3DEem G851XnMhgBOrAqvrr8wuw 1weePq8FiVuKAHsdmLsfT gfVCV9f6MtVc82F6JbiDc cs5NoQjs7qi93 qXPdz3C3kKV0M8OfLNFqx ctoySJxcYajXR2tBABnob txYQPxqD6qQHEgT7q5AyK dRvS7MCoeC5Qt jkV5BEXrtMAnAECekTVHs U0ogpwze4ntwzmgVzGnWH BtBHu5FJo7NDMyiHkiNpY yGUU8BuZ4TLR8 jZYwcM9mnPjeyozqsW0mB yc+MQd0m2tjsZRcYM8siX T2ER60UG59vMOgy2P0eOI 8D1MlWVPxxoly whcifJZ0EPUkYZLhyI13A s2otBfrUo2fXYIgMFA0OX HciILpF2KlnM9aArYoJZG rYJAdZ9FlmOUb FWssK647HBnpOvL9SKHbq lShJ2QlSBNouScvNnU9o9 A7Qz4OPW41UW71HA11hVZ dq8F7xKW2D3Qo LCAsvvkrwapuxKB3AAVqU UNdvL24Ll8dqSrfMs7iIQ YmHMR2JYGocUQdS7EwrW1 yOiAjMDAwMDAw X3PpeHZcGOarI656PPdrI kP7VWJjgzPeC2IqVYOdmD mkKyE6k7S2Ez0XZs47IE2 4VK15oGFbi0Z5 mZX2D9BhCVKxyaovcijie WY5EXDcECOkrV29Rx7eqV icOc3gOYUxSUK7JTSwaQI oQ9AmeO3vDiEn FVLpXBAlH5PqeNIdSPapM 260MNiwBnP3GYAuxbWfZ4 LmDZGdsHbkMxE5p1Y2Gk8 GRDreplf2P6Uo PjwvdHI+WW08RKOhZB72e CSqcAQjx5pxzHp2UkUzZM VyXHJ3vRtgHSuvv5IzXOW cT25xtJLgc0U8 IGN (more content not included)... [facility] Coding Summary HTMLBase 64 VjweivxcLEk2pBd+PGhlY WQ+LO5EFUOmM60sbDZapG 7BY8cPSQ7CVSWCPMIEPK5 XFM6geGB1PFkoX8XbxjVo TwrqmRNnRR65OUg9EIZ8j TtgEGunkJ4ujIXgO5x8Op RkYK26qD83LWnuGJAbUrL 3LjZpbjsgbWFy K1qsLgKivLGzSky+PHRhY mxlIHdpZHRoPScxMDAlJy TvgGudBX4jRr1qKHEfYBJ vbGxhcHNlOiBj f5edBDLeADbjQQ1voFeyM 6BhsKY1PZDcd3f2Bw07iX I+MMWsAZH2vSfyMFncg67 5JqFfj0xgICI8 xVIiGNvlRBM7R25rz8N2X HNeXZRhQOB7sGI4sC5osM sgemogS6RxcXVbCmK8WLE 6eXBjqJ6adIag iwljeT3rOjt+U17OGH9JD WJQPT2KDdy4H1BdYniozY I+MW49TNNqPN45hVCtqOZ vx0thkQk2WxQo ZFSuOUW2nXviUZeny7DzW PFcU95jxFPgx3S4ZAWmqQ fnnDHhNgUwpAQ8lZ2tMLj fogros5ysarvl Eocum5tfeu14jL41Q28jF NhfMJPtXPY3YUUaMNQgyM wllv7kvB3bHw7+NKzek4m fd2ivjGd9XtNc ONLynaHuhVfoDJL4u3VnW l00M5DhqUpuu1AcFjq9mp 57vHCph5M5fTC6FIhnVSJ tbO7bJCxgUgL2 HHNtGfVwoQ05lSAgMWogW b6mhKjuvNpwJA1dXJRfzw ueIOVsaR8yRHAsnWPbkPp eLQ6fYZPwmdsr t630WzKvCOG1KZUkdDOhW 9IvqT3oJoRcDJItYPRrT4 NvbIIfTIxsM847XMmwFzB 8IDYmxzXbA0Ft URRvuSrjNiT9e3G5Cy7Ve 6MtuvnsIUG8UVasLJZ1Nx N4LyCwNfS8Z5ObHbc1MIV rmEcjRA2iH4Jc UFCnexdcgjwahEO1LCHyY ULuoL11vMDhZEygZy4yj0 N4e957RXEdSYHqsQ53Jy6 udDogMTBwdCBU sK9wyvpbw2iafcojHrPkI FMdPWs5EQz4LUTlkIfzLc OxWBS3HyT8AWE9lGCutU7 tdXukkibgfL1p Oyc+W28bfB0zTQU5DZJ3z ymzHYCpkyFnYG44AP43W9 RyPjwvdGFibGU+PGRpdiB jyLbvIR4wJvKh w2ldr4FsBCxeZ4EiWJTpQ HcaCbk6IKJvLQO1bBN9kF 8oBPEwZGegu2O9dSW9I6B grcCslz3mp7wj ARUuFVxrT69poNPbr9Y6B VMujLN7HTNosBefZqGadL 93Oyc+PUIroSkel2ZxQwe nm1fcl0adeJm6 QjRkBVKizoKjyPaiHHL9y 5BrFq54N96qNXkdVIMxBA IyACLgESJbnGdrdp0csJ9 wIi8+PGNvbCB3 gVL3sL7jYOIlSvR8EHjuM 222VcMapOQyAqedk8cux4 fdbRt7UvEgHBUptuEwaSu lPFJ6k1PbBm82 W73kPTywRFJuHQGhSSNqM CZcvCnypb9pkX2bFe5+PC 8ag3turr93bT04zHW+PHR lHAG5mLpjLQra YJUwyJ8kFYpbFpI3KGEpF lIqnO06sJYcBDevRu0hpQ vqiTztHU1jMOBcngvhk90 7EaHrg9doXRQq gJFpTHhjNEJ7V51av3Q1X NVqNGVkHYI1vRM3sO3rjK lnbjogbGVmdDsgdmVydGl kBXkwWTzgT925 IHRvcDsnPlBhdGllbnQgT vNyQDx3H2PwObf9JFYtiA hgFX9apBNoGYubPy0hwDs mtRtdAM2gDODe ticfp904BmYex3tgXEJzf DQpTZbyIFS4B27tv4U3DM CiMXZwUHB1dFX4zQ7qyBz nbjogbGVmdDsg jsRdcPwkCVqeFGtbR933Z HRvcDsnPkJpcnRoIERhdG N4CY41ZN09uUEwm7V7eRY 4M3RyUWQuowcy vheevOX7HRNxSXUxlR04W o7xrOgpVq5rXDCfBME1XO QpnLMcN9ReyM3iIgIyOVW mQVNfZ4YsjXUd HJaiO386RSxxUjF7YXLee oIrC5AkDQHmuYtsVaF8x8 I0Gb7GQ5O1HC40CN02uCK vi5W1ySB6D9Es SSQbtaodfgckdKA1WDAiO AVouM31Iz0zhHhyDn9tCO OvIRX8KGGohFRoN4SbuU2 yOiAjMDAwMDAw A3ZbaRCgXAawK401YFcwT hV1EVEtwxQoT4OkPTQdtX jlXxM1e8H0Hw2ELMn2YG3 6DS15dFItp2D4 mVW6X1YgDDRzizrkkvzgd EW6NWMbNLMwgU82Dr6yeM cqKd5kEBScBGA9ETLpiDK sH3GovZ7qGzFe HFMzMZYkA0ZwoUGcRUipX 958UDdvWiH3CLPkcxShN3 TnEVKnwZfiFeW5c1L9Yn3 CYMMjFR75MPH4 eTP9NN74OL62Z3GpKxfhq GFibGU+PHRhYmxlIHdpZH RoPScxMDAlJyBzdHlsZT0 oAq0nRKUbIDTe wIdybQXzMnEcr2wfTVSoO UyyQA5nbHnjZ6CfjYZ5PE Ymt1v1Ft38S32lB1DzaLN +EZQpfRX8jEG8 cW0sUsXpIiY2TZhrO007W uQwkHNeGxcoe8olz4wpyR x5TzI3RQWzaeQbtUcmOMM 9h7DpLw68L10d IHdpZHRoPSIxNSUiIHZhb Gigfg6jnC4pGv5+PGNvbC J2cYJ7eI0mYiCzJeG1QAf gL649PxRrdDCz Kkizm6pae0mtfWy7GyRyY MIrkbUkhCubGUF9a5QbQh 39O8HxnFpmp1FeUwf8ec3 1gFHcd2N9qOW6 F4NnEEWiuplwfNItaVuxA G8zZXVwczckIZBlnQ4vVG VlO0n3GbJuVyO8PCowG0W bhjI3MBFitXSy GFvmFPU0R47eb3K6HSMcS IMxOUU4yJC1uJ9jtOqmyt ogbGVmdDsgdmVydGljYWw bBGfaN657LANk kOxiMAUvpH7tFVBdwXMef PtzXX6rHDEjbvyvRdpXRN wsIFNIQVdOVEUgTUFSSUU 2P2ZyNdd8STMl yLtsOB7ejMXpBIkcNb4dr RbhkBebUW7nAONvculsOD SrfK7yLUCpiJDyfQtbXS5 oDWCxchcie713 SqXcNVG8KIYugJIpR6Gft J8gCgTkSJIjEOPrE1RrvU MdYUokQ383LWnyGyK7KHC sotVeH2QbKFUt qOqjQaJ5n5S9He6hNW2sN p9aOFq8VL18ZO29zRAhx8 J6tCU4V4DiXJCmcxdmcgi knXE8TFGhFGFi rB33fEClOGrnJg4jl1L2v 623CHLoJHFwiZ17Sn8ddH ooPEHoqDVQpF1rfpfkr8r vcjogIzAwMDAw FFc9GFp2QYMqvCoeAeVkR YX4IzJ6UYW2sYNjzH3afU evrfnjxR1dFqi+MzYgWWV qacU1A1FhTjr2 ZIXehEhxOG9ugAFtWVzhV z2ucCbjjGzkOO8wJCVbev vnQDAloR1qOXIsxMWgkRo dLQ5yLBTiqijk p872ZoSmGUQ7TOJmlUHdI 8ZjiT1lQsZfGQMrJKHbC9 HogWXiZKtyU155ROzcBzS 9ZALuhjUlV5Iv IRGafWwaRmE1v9X1Dw5RU N6DLVY5D0TmQqq2NVRibB ssXH8yaMHxEGvjZk5mfNv ymBkpPA9qVRIy hkgjPXBnyC6hPDYxhNAsl OqoGH2kEIRxkusnq591Cw TgWFY3MBPokTYlL1PjlC5 yOiAjMDAwMDAw V5SrlMNjEFrjL863LNtoD aA7EWAclaYlW6ExTPLbgJ yeJnE5y2R4Kx6VrWUqD8Y oP0i0Z1QkCpun dHI+DG41ILUrLJ63tJVde DBal1blfAc3FjVsHSJiPO I2hYzkXIjql1BgFHLrG80 xrZRhc4L7TRNh xMmfoGXbFxKgvFR6lV0aF Patcqxut3omppnwDqyew7 pzch35iJ20F45fFLfyRBS oPSIzMCUiIHZh qGahti3abJ0kMo4+PGNvb QI5tGU0zX7pCoOhWfY0IX moO473FyLboMAqQcxlx7n hj3rtsZc4MvBs OYJyrsZizGhzRTC0y8YxZ p19R61rWHuqFZLpOQHfKY YoMNNbiPmnob3uaQ5eYb8 +TU6cx1jytk99 rM18fST+GQKoRVQ2iBcmZ GwfFFKfhT7qEPisPiX4VC CbBrPsoL47tTFrGTewDj1 mbKlcoFauJI3j IGZfsighz455UpUom7gdI JMjpXFgCEvkSCV8B26lw6 H1CYThVEVjWQU9xDI1wX3 hbGlnbjogbGVm dDsgdmVydGljYWwtYWxpZ 417XMVblAksSyGjkWWjF1 jpswKFCM1gFppjfEL+PHR iRXY7zTxkEWqk QWPfiO7xKMLpO2k9FsMmW uU4DLrtX1DrdmV0AFIoqL YrBOAitCRLrW7qjqfqt8q vcjogIzAwMDAw UVg2ZHz8LZMwxGngKfLlQ EN3QiP4BPI7nJBrhB5txI vdumcuuI9yHsb+RklOOjw vdGQ+PHRkIHN0 tRajPBowDCMhcA8rDEEoI 0v1XiWaSoZ5FOvoG2Ftkx F7KJEjdMNpETJvdQUJdS2 tkhpab2epttaw XxUiDKSbNLb6JTo5NEYco RqoKmZjRUG2OpC4QCM3lJ HqiD1uiHeelswwxF5oLzl +TVJOOjwvdGQ+ DSKpVJF9bHjqUSpgGPCnk N7lRKSeL4j5HxUbClG0ZL fkN8FvibN0LVDvhSAhBJH ouWYPzQ0fyrwb u3muaiimLwZjFYWsGFu2D Zx6FVFgqHxlTkWtAGI8Yh B6TSX7mSMbwU2xlRupkqp bwO6lWdu+UGF5 EBL7YS92NX63X8NdGlztt GFibGU+PHRhYmxlIHdpZH RoPScxMDAlJyBzdHlsZT0 hTs1mWKRsHVDf bGx (more content not included)... Normal [facility] Chlamydia trachomatis, TERESE L Con 08-25-2020 Chlamydia trachomatis, TERESE LC Negative Invalid Interpretation Code Negative [facility] Comment on above: Order Comment: Send results to Dr. Rojas Result Comment: Perf ormed At: =G [address], [place] [id number] Beatriz Reyez MD Ph:[phone] Performed By: #### 1 [id number] ####[facility] (DEFAULT)[address] [place] [address]126 C Urineon 08-24-2020 C Urine No growth at 2 days. Normal [facility] Comment on above: Performed By: #### 6 [id number] ####[facility] (DEFAULT)[address] [place] [address] 57549 .Auto Diff 1on 08-22-2020 Auto [place] % 7 % Normal 1-12 [facility] Comment on above: Performed By: #### 1 [id number], [id number], 8100578, [id number], [id number] ####[facility] (DEFAULT)[address] [place] [address] 84323 Baso Abs# 0.0 x10 Normal 0.0-0.2 [facility] Comment on above: Performed By: #### 1 [id number], 36104652, 1096022, [id number], [id number] ####[facility] (DEFAULT)[address] [place] [address] 84029 Basophils/100 WBC (Bld) 0.2 % Normal 0.2-2.0 [facility] Comment on above: Performed By: #### 1 [id number], 52174768, 0600825, 3210653302, [id number] ####[facility] (DEFAULT)[address] [place] [address] 65587 Eos Abs# 0.1 x10 Normal 0.0-0.4 [facility] Comment on above: Performed By: #### 1 [id number], 96938963, 6026997, 8908009170, [id number] ####[facility] (DEFAULT)[address] [place] [address] 03342 Eosinophils/100 WBC (Bld) 1.3 % Normal 0.9-4.0 [facility] Comment on above: Performed By: #### 1 [id number], 00569545, 8832242, 8557114322, [id number] ####[facility] (DEFAULT)[address] [place] [address] 51014 Lymph Abs# 1.9 x10 Normal 1.3-2.9 [facility] Comment on above: Performed By: #### 1 [id number], 81022554, 6403928, 7437229623, [id number] ####[facility] (DEFAULT)[address] [place] [address] 91481 Lymphocytes/100 WBC (Bld) 35 % Normal 14-48 [facility] Comment on above: Performed By: #### 1 [id number], 53881721, 6341243, 7099017018, [id number] ####[facility] (DEFAULT)[address] [place] [address]31 [place] Abs# 0.4 x10 Normal 0.0-0.8 [facility] Comment on above: Performed By: #### 1 [id number], 06581401, 8787208, 9657704476, [id number] ####[facility] (DEFAULT)[address] [place] [address] 02324 Neut Abs# 3.0 x10 Normal 1.5-9.2 [facility] Comment on above: Performed By: #### 1 [id number], 67510104, 2801199, 8867910963, [id number] ####[facility] (DEFAULT)[address] [place] [address] 70309 Neutrophils/100 WBC (Bld) 56 % Normal 44-88 [facility] Comment on above: Performed By: #### 1 [id number], 27513101, 4184539, 4608226920, [id number] ####[facility] (DEFAULT)[address] [place] [address] 19774 C Genitalon 08-22-2020 C Genital Send results to Dr. Rojas scrape gatherer Heavy growth of Gardnerella vaginalis No HILTON performed on this organism No growth of GC at 3 days. Gram Negative Diplococci not seen. 4+ Gram Positive Cocci 4+ Gram Negative Rods 2+ Gram Positive Rods 1+ White Blood Cells Normal [facility] Comment on above: Performed By: #### 2 [id number] ####[facility] (DEFAULT)[address] [place] [address] CBC w/ Auto Diffon 1 Erythrocyte distribution width (RBC) [Ratio] 14.3 % Normal 11.5-15.0 [facility] Comment on above: Performed By: #### 1 [id number], 08193849, 1399341, 2968088613, [id number] ####[facility] (DEFAULT)[address] [place] [address] Hematocrit (Bld) [Volume fraction] 34.4 % Normal 33.7-40.4 [facility] Comment on above: Performed By: #### 1 [id number], 49258797, 9414337, 8409998309, [id number] ####[facility] (DEFAULT)[address] [place] [address] Hemoglobin (Bld) [Mass/Vol] 11.2 g/dL Low 11.3-15.9 [facility] Comment on above: Performed By: #### 1 [id number], 07466726, 6371522, 3800849624, [id number] ####[facility] (DEFAULT)[address] [place] [address] Instr WBC 5.4 x10 Invalid Interpretation Code [facility] Comment on above: Performed By: #### 1 [id number], 19895815, 9900996, 1572594932, [id number] ####[facility] (DEFAULT)[address] [place] [address] 81001 Man Diff? Auto Normal [facility] Comment on above: Performed By: #### 1 [id number], 36734320, 6333460, 8816666563, 1764553901 ####[facility] (DEFAULT)[address] [place] [address] 24581 MCH (RBC) [Entitic mass] 28 pg Normal 24-34 [facility] Comment on above: Performed By: #### 1 [id number], 40656721, 7604951, 5958024916, [id number] ####[facility] (DEFAULT)[address] [place] [address] 70442 MCHC (RBC) [Mass/Vol] 33 g/dL Normal 26-37 [facility] Comment on above: Performed By: #### 1 [id number], 98551157, 8820331, 1397351677, 2226916277 ####[facility] (DEFAULT)[address] [place] [address] MCV (RBC) [Entitic vol] 84 fL Normal 81-100 [facility] Comment on above: Performed By: #### 1 [id number], 03154224, 3009108, 5074500123, 6612665419 ####[facility] (DEFAULT)[address] [place] [address] Platelet 200 x10 Normal 138-427 [facility] Comment on above: Performed By: #### 1 230737196, 04470611, 0468830, 0434665666, [id number] ####[facility] (DEFAULT)[address] [place] [address] 47127 Platelet mean volume (Bld) [Entitic vol] 11.3 fL High 6.3-10.2 [facility] Comment on above: Performed By: #### 1 [id number], 46228436, 1147631, 9783319583, [id number] ####[facility] (DEFAULT)[address] [place] [address] 62994 RBC 4.07 x10 Normal 3.70-5.30 [facility] Comment on above: Performed By: #### 1 468328230, 38322501, 3072845, 1585644244, 4397542902 ####[facility] (DEFAULT)[address] [place] [address] WBC 5.4 x10 Normal 3.5-10.5 [facility] Comment on above: Performed By: #### 1 [id number], 75721415, 1629618, 5140458209, 0049547302 ####[facility] (DEFAULT)[address] [place] [address] CMP Standardon 08-22-2020 eGFR Non AA >60 Invalid Interpretation Code [facility] Comment on above: Performed By: #### 1 [id number], 81321119, 2958930, 3192455682, [id number] ####[facility] (DEFAULT)[address] [place] [address] 67201 eGFR AA >60 Invalid Interpretation Code [facility] Comment on above: Result Comment: Announcer alejandra Kidney disease could be indicated at eGFRs of less than 60 ml/min/1.73m2. Kidney Failure is indicated at less than 15 ml/min/1.73m2 Performed By: #### 1 [id number], 44791624, 7402076, 3456779020, [id number] ####[facility] (DEFAULT)[address] [place] [address] 84978 Albumin [Mass/Vol] 4.6 g/dL Normal 3.5-5.0 [facility] Comment on above: Performed By: #### 1 [id number], 75050807, 2894467, 8800063343, 0817447989 ####[facility] (DEFAULT)[address] [place] [address] 13531 Albumin/Globulin [Mass ratio] 1.8 {ratio} Normal 1.4-2.6 [facility] Comment on above: Performed By: #### 1 [id number], 79149368, 8932004, 7337695951, 7390148375 ####[facility] (DEFAULT)[address] [place] [address] 32202 Alk Phos 61 IU/L Normal 32-91 [facility] Comment on above: Performed By: #### 1 [id number], 75769262, 9853052, 5217743036, [id number] ####[facility] (DEFAULT)[address] [place] [address] 13259 ALT [Catalytic activity/Vol] 16.0 U/L Normal 14.0-54.0 [facility] Comment on above: Performed By: #### 1 [id number], 08845123, 1591619, 2641520627, 0319498154 ####[facility] (DEFAULT)[address] [place] [address] 23184 Anion gap [Moles/Vol] 14.0 mmol/L Normal 5.0-19.0 [facility] Comment on above: Performed By: #### 1 [id number], 97478263, 5599351, 6114016055, [id number] ####[facility] (DEFAULT)[address] [place] [address] 70661 AST [Catalytic activity/Vol] 16 U/L Normal 15-41 [facility] Comment on above: Performed By: #### 1 [id number], 88399344, 1772386, 3269255666, [id number] ####[facility] [facility] (DEFAULT)[address] [place] [address]8893 Bili Total 0.8 mg/dL Normal 0.3-1.2 [facility] Comment on above: Performed By: #### 1 [id number], [id number], [id number], [id number], [id number] ####[facility] (DEFAULT)[address] [place] [address] 32462 Calcium [Mass/Vol] 9.3 mg/dL Normal 8.9-10.3 [facility] Comment on above: Performed By: #### 1 [id number], [id number], [id number], [id number], ####[facility] (DEFAULT)[address] [place] [address] 01792 Chloride [Moles/Vol] 105 mmol/L Normal 101-111 [facility] Comment on above: Performed By: #### 1 [id number], [id number], [id number], [id number], [id number] ####[facility] (DEFAULT)[address] [place] [address] 99731 CO2 [Moles/Vol] 21 mmol/L Normal 21-32 [facility] Comment on above: Performed By: #### 1 [id number], [id number], [id number], [id number], [id number] ####[facility] (DEFAULT)[address] [place] [address] 92547 Creatinine [Mass/Vol] 0.90 mg/dL Normal 0.60-1.30 [facility] Comment on above: Performed By: #### 1 [id number], [id number], [id number], [id number], [id number] ####[facility] (DEFAULT)[address] [place] [address] 75816 Globulin (S) [Mass/Vol] 2.6 g/dL Normal 1.5-4.3 [facility] Comment on above: Performed By: #### 1 [id number], [id number], [id number], [id number], [id number] ####[facility] (DEFAULT)[address] [place] [address] Glucose [Mass/Vol] 99.0 mg/dL Normal 74.0-118.0 [facility] Comment on above: Performed By: #### 1 [id number], [id number], [id number], [id number], [id number] ####[facility] (DEFAULT)[address] [place] [address] 37422 Osmolality 272 mOsm/L Invalid Interpretation Code [facility] Comment on above: Performed By: #### 1 [id number], [id number], [id number], [id number], [id number] ####[facility] (DEFAULT)[address] [place] [address] 14896 Potassium [Moles/Vol] 3.8 mmol/L Normal 3.6-5.1 [facility] Comment on above: Performed By: #### 1 [id number], [id number], [id number], [id number], [id number] ####[facility] (DEFAULT)[address] [place] [address] 49027 Protein [Mass/Vol] 7.2 g/dL Normal 6.5-8.1 [facility] Comment on above: Performed By: #### 1 [id number], [id number], 0789134, [id number], [id number] ####[facility] (DEFAULT)[address] [place] [address] 10856 Sodium [Moles/Vol] 136.0 mmol/L Normal 136.0-144.0 [facility] Comment on above: Performed By: #### 1 [id number], [id number], 2501263, [id number], [id number] ####[facility] (DEFAULT)[address] [place] [address] 72937 Urea nitrogen [Mass/Vol] 13 mg/dL Normal 8-26 [facility] Comment on above: Performed By: #### 1 [id number], [id number], 5973427, [id number], [id number] ####[facility] (DEFAULT)[address] [place] [address] Urea nitrogen/Creatinine [Mass ratio] 14.0 mg/mg Normal 4.6-16.2 [facility] Comment on above: Performed By: #### 1 [id number], [id number], [id number], [id number], [id number] ####[facility] (DEFAULT)[address] [place] [address] ED Clinical Summaryon 2020 ED Clinical Summary [facility] - Emergency Department [address] [place], [place] [id number] ED Clinical Summary PERSON INFORMATION Name: TALHA BELL Age: 35 Years Sex: FEMALE : 1985 MRN: Acct#: Visit Reason: Dysuria; Weakness; STD exposure; Pelvic pain; Flank pain; PELIVS PAIN, LEFT KIDNEY PAIN Arrival: 08/22/2020 17:41:37 Discharge: 08/22/2020 19:50:00 LOS: 000 02:09 Check In: 08/22/2020 17:41:37 Checkout:08/22/2020 19:50:00 Address: [address] [place] [address] PCP: SAVANNAH RODRIGUEZ PROVIDER INFORMATION Provider Role Assigned Unassigned Azael Crane PA-C ED PA 08/22/2020 17:43:49 Kem NICHOLAS, Mag ED Nurse 08/22/2020 17:45:24 Krystal NICHOLAS, Teresa ED Nurse 08/22/2020 19:08:04 VITALS INFORMATION Vital Sign Triage Latest Temperature Tympanic Temperature Temporal Artery Pulse Rate 86 bpm 86 bpm O2 Sat 98 % 98 % Respiratory Rate 18 br/min 18 br/min Blood Pressure /56 mmHg /56 mmHg MEDICAL INFORMATION Medications Given: Medication Dose Route ibuprofen 600 mg PO sulfamethoxazole-trim ethoprim 1 tab(s) PO Allergy Information: Levaquin PHYSICIAN DOCUMENTATION Patient: TALHA BELL Age: 35 years Sex: FEMALE : 1985 Associated Diagnoses: Vaginal discharge; Flank pain; Dysuria Author: Royce LOPEZ, Azael Li Basic Information Time seen: Date & time 08/22/2020 17:45:00. History source: Patient. Arrival mode: Private vehicle. History limitation: None. History of Present Illness This 35-year-old female presents here to the emergency department with chief complaint of left-sided flank pain dysuria urinary frequency left-sided pelvic pain. Patient states that she had a hysterectomy approximately 14 weeks ago. States it was completed by Dr. Rojas scrape gatherer in [place]. Patient states that she has been doing well. States she recently went back to work approximately 2 weeks ago. Patient states also approximately 2 weeks ago she had intercourse with her boyfriend which was followed by a large amount of bleeding. She was uncertain if she had tore any of the incision that was completed by her hysterectomy. Patient states bleeding only lasted about a day and a half. States since then bleeding has resolved. States now she is concerned that she has a clear drainage which she states is malodorous. Also notes some concern in regards to what she states is left kidney pain with a history of kidney stones. States some left lower pelvic pain. Dates dysuria and urinary urgency. States she feels that she cannot empty her bladder ever since having a hysterectomy. States after a good stream she feels like she has to strain in order to empty her bladder completely. In regards to vaginal discharge she states she also has concern for possibly some sexually transmitted infections. States her boyfriend worked in [place] for approximately 1 month and states that he disappeared and did not answer his phone for approximately 1 day and did not go home till 4 PM the next day in the afternoon. She denies any fever chills or weakness denies any recent sick contacts or travel. Denies any nausea vomiting or diarrhea. Denies any black or tarry stools or blood in the stool. 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 She rates her flank and pelvic pain as a 6/10 on the pain scale, sharp in nature. She has not tried any modifying factors in regards to her pain/discomfort. She has no other concerns at this time. Review of Systems Constitutional symptoms: No fever, no chills, no sweats, no weakness, no fatigue. Skin symptoms: No rash, no pruritus, no abrasions. Eye symptoms: Vision unchanged. ENMT symptoms: No ear pain, no sore throat, no nasal congestion, no sinus pain. Respiratory symptoms: No shortness of breath, no cough. Cardiovascular symptoms: No chest pain, no palpitations, no tachycardia, no syncope, no diaphoresis, no peripheral edema. Gastrointestinal symptoms: Abdominal pain, mild, left flank, sharp, no nausea, no vomiting, no diarrhea, no constipation, no rectal bleeding, no rectal pain. Genitourinary symptoms: Dysuria, vaginal discharge, no hematuria, no vaginal bleeding. Musculoskeletal symptoms: No back pain, no Muscle pain, no Joint pain. Neurologic symptoms: No headache, no dizziness, no altered level of consciousness, no numbness, no tingling, no weakness. Additional review of systems information: All other systems reviewed and otherwise negative. Health Status Allergies: Allergic Reactions (Selected) Severity Not Documented Levaquin- No reactions were documented.. 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 Normal [facility] ED Note - Physicianon 2020 ED Note - Physician Patient: TALHA BELL Age: 35 years Sex: FEMALE : 1985 Associated Diagnoses: Vaginal discharge; Flank pain; Dysuria Author: Royce LOPEZ, Azael Li Basic Information Time seen: Date & time 08/22/2020 17:45:00. History source: Patient. Arrival mode: Private vehicle. History limitation: None. History of Present Illness This 35-year-old female presents here to the emergency department with chief complaint of left-sided flank pain dysuria urinary frequency left-sided pelvic pain. Patient states that she had a hysterectomy approximately 14 weeks ago. States it was completed by Dr. Rojas scrape gatherer in [place]. Patient states that she has been doing well. States she recently went back to work approximately 2 weeks ago. Patient states also approximately 2 weeks ago she had intercourse with her boyfriend which was followed by a large amount of bleeding. She was uncertain if she had tore any of the incision that was completed by her hysterectomy. Patient states bleeding only lasted about a day and a half. States since then bleeding has resolved. States now she is concerned that she has a clear drainage which she states is malodorous. Also notes some concern in regards to what she states is left kidney pain with a history of kidney stones. States some left lower pelvic pain. Dates dysuria and urinary urgency. States she feels that she cannot empty her bladder ever since having a hysterectomy. States after a good stream she feels like she has to strain in order to empty her bladder completely. In regards to vaginal discharge she states she also has concern for possibly some sexually transmitted infections. States her boyfriend worked in [place] for approximately 1 month and states that he disappeared and did not answer his phone for approximately 1 day and did not go home till 4 PM the next day in the afternoon. She denies any fever chills or weakness denies any recent sick contacts or travel. Denies any nausea vomiting or diarrhea. Denies any black or tarry stools or blood in the stool. 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 She rates her flank and pelvic pain as a 6/10 on the pain scale, sharp in nature. She has not tried any modifying factors in regards to her pain/discomfort. She has no other concerns at this time. Review of Systems Constitutional symptoms: No fever, no chills, no sweats, no weakness, no fatigue. Skin symptoms: No rash, no pruritus, no abrasions. Eye symptoms: Vision unchanged. ENMT symptoms: No ear pain, no sore throat, no nasal congestion, no sinus pain. Respiratory symptoms: No shortness of breath, no cough. Cardiovascular symptoms: No chest pain, no palpitations, no tachycardia, no syncope, no diaphoresis, no peripheral edema. Gastrointestinal symptoms: Abdominal pain, mild, left flank, sharp, no nausea, no vomiting, no diarrhea, no constipation, no rectal bleeding, no rectal pain. Genitourinary symptoms: Dysuria, vaginal discharge, no hematuria, no vaginal bleeding. Musculoskeletal symptoms: No back pain, no Muscle pain, no Joint pain. Neurologic symptoms: No headache, no dizziness, no altered level of consciousness, no numbness, no tingling, no weakness. Additional review of systems information: All other systems reviewed and otherwise negative. Health Status Allergies: Allergic Reactions (Selected) Severity Not Documented Levaquin- No reactions were documented.. 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 Menstrual history: Hysterectomy, Tubal ligation . Past Medical/ Family/ Social History Medical history: Resolved URI (upper respiratory infection) ([id number]): Resolved.. Surgical history: section (46069626). Comments: 09/16/2017 17:09 EDT - Denzel NICHOLAS, Mildred X4 Tonsillectomy (609965431). TL - Tubal ligation ([id number]).. Social history: Social & Psychosocial Habits Alcohol 01/31/2020 Alcohol Use: Current Type: Wine Frequency: 1-2 times per week 02/29/2020 Alcohol Use: Past 08/22/2020 Alcohol Use: Current Frequency: 1-2 times per week Substance Abuse 01/31/2020 Substance use: Current Comment: Denies - 01/31/2020 19:00 - Ewa Baca RN 08/22/2020 Substance use: Never Tobacco 01/31/2020 Smoking tobacco use: Former smoker, quit more Comment: Stopped smoking 2012 (more content not included)... Normal [facility] ED Patient Summaryon 021 ED Patient Summary [facility] - Emergency Department [address] [place], [place] [id number] PATIENT DISCHARGE INSTRUCTIONS Patient Information Name: TALHA BELL Age: 35 Years Date of : 1985 [facility]: [id number] Reason For Visit: Dysuria; Weakness; STD exposure; Pelvic pain; Flank pain; PELIVS PAIN, LEFT KIDNEY PAIN Arrival Time: 08/22/2020 17:41:37 Primary Care Physician: SAVANNAH RODRIGUEZ Attending Physician: Tiburcio Kennedy DO Comment: Visit Diagnosis: Diagnoses This Visit Dysuria ([id number]) Dysuria (R30.0) Flank pain (R10.9) Flank pain (904707550) Pelvic pain ([id number]) STD exposure ([id number]) Vaginal discharge (N89.8) Weakness (51547593) Prescription Information: If you have been given a prescription for narcotics, seek immediate medical attention if you have any difficulty breathing or any sudden status changes such as confusion and sleepiness. If you or anyone you know is experiencing suicidal thoughts, mental health, alcohol and/or drug addiction problems; contact the [facility] 26/11 Crisis Hotline -Text 9QIKV kl 139205. If you received any narcotics, sedation, or any other medication that causes drowsiness for the next 24 hours, unless otherwise directed: ? Do not drive a car. ? Do not operate machinery such as power tools, lawn mowers, drills, sewing machines, or stoves ? Avoid alcoholic beverages and drugs for allergies, nerves, or sleep ? Do not make important personal or business decisions or sign any legal documents With: Address: When: SAVANNAH RODRIGUEZ [address] [place] [address] [address] [place] [id number] Business (1) Within 3 to 5 days Comments: Please follow-up with your TRACK AND FIELD COACH in 3 to 5 days. Keep your follow-up appointment with him on Saturday of this week. You were seen and evaluated in the emergency department this evening in regards to burning with urination urinary discomfort left-sided flank pain and vaginal discharge. You had a urinalysis completed which was positive for nitrate which may indicate a urinary tract infection in which urinalysis was sent for culture. In regards to possible urinary tract infection you are treated with 1 dose of Bactrim antibiotic here in the emergency department and a prescription for Bactrim was sent to [facility] pharmacy for you in which you will take 1 tablet daily over the next 3 days which she may start tomorrow morning. Continue to drink plenty of water. You had basic lab work completed and which was within normal limits. No acute findings. In regards to concern for vaginal discharge with odor you had a pelvic exam completed in which swabs were sent to the lab. You will be notified if any of these come back positive. No news is good news so if you do not hear from us assume that these were negative. Results should also be sent to Dr. Rojas your scrape gatherer. Continue to monitor your symptoms and return here to the emergency department if you develop any fever, chills, worsening pain, if you develop any abdominal pain or any other worsening or concerning symptoms. Medication Information: The exam and treatment you received today in the [facility] Emergency Department were for an urgent problem and are not intended as complete care. It is important for you to follow up with a doctor, nurse practitioner, or physician?s web production assistant for ongoing care. If your symptoms become worse or you do not improve as expected and you are unable to reach your usual health care provider, you should return to the Emergency Department, we are available 24 hours a day. For those patients who have received Radiology results, the interpretation of your X-ray as given to you by our Emergency Department physician is only a preliminary report. The Radiologist will review your films and if there is a change in the diagnosis you will be notified by phone. Please make sure you have provided a working phone number so we can reach you if necessary. In the event that you had a lab culture while you were a patient in the Emergency Department, you will be notified by phone if there is a need to change your antibiotic. Please make sure you have provided a working phone number so we can reach you if necessary. [facility] Emergency Department has provided you with a complete list of medications post discharge. Please inform your primary care md/provider of your visit and for further instruction on these medications. Any specific questions regarding your chronic medications and dosages should be discussed with your primary care physician(s) and/or pharmacist. New Medications [id number], [address], [place] [id number], [phone] sulfamethoxazole-trim ethoprim (Bactrim DS 800 mg-160 mg oral tablet) 1 tab(s) Oral 2 times a day. Refills: 0. Medications to Continue That Have Not Changed Other Medications (more content not included)... [facility] Extra Redon 08-22-2020 Tube Collected Yes Invalid Interpretation Code [facility] Comment on above: Performed By: #### 1 [id number], [id number], [id number], [id number], [id number] ####[facility] (DEFAULT)[address] [place] [address] 80576 UA Jxzem2du 08-22-2020 UA Amorph. Rare [facility] Comment on above: Order Comment: Urina lysis Microscopic order added on by Lybrate Expert Rules system. Performed By: #### 5 [id number], [id number] ####[facility] (DEFAULT)[address] [place] [address] 57504 UA Bacteria Trace [facility] Comment on above: Order Comment: Urina lysis Microscopic order added on by Lybrate Expert Rules system. Performed By: #### 5 [id number], [id number] ####[facility] (DEFAULT)[address] [place] [address] 78646 UA RBC 0-2 [facility] Comment on above: Order Comment: Urina lysis Microscopic order added on by Lybrate Expert Rules system. Performed By: #### 5 [id number], [id number] ####[facility] (DEFAULT)[address] [place] [address] 35504 UA Squam Epi Few [facility] Comment on above: Order Comment: Urina lysis Microscopic order added on by Lybrate Expert Rules system. Performed By: #### 5 [id number], [id number] ####[facility] (DEFAULT)[address] [place] [address] 05181 UA WBC 0-2 [facility] Comment on above: Order Comment: Urina lysis Microscopic order added on by Lybrate Expert Rules system. Performed By: #### 5 [id number], [id number] ####[facility] (DEFAULT)[address] [place] [address] 01301 UA w Culture if Ind Standard on 08-22-2020 Breakpoint UA Normal [facility] Comment on above: Performed By: #### 5 [id number], [id number] ####[facility] (DEFAULT)[address] [place] [address] 40903 Color (U) Yellow Normal [facility] Comment on above: Performed By: #### 5 [id number], [id number] ####[facility] (DEFAULT)[address] [place] [address] 92203 Culture? Not Indicated Invalid Interpretation Code [facility] Comment on above: Performed By: #### 5 [id number], [id number] ####[facility] (DEFAULT)[address] [place] [address] 36766 Glucose (U) [Mass/Vol] Negative Normal [facility] Comment on above: Performed By: #### 5 [id number], [id number] ####[facility] (DEFAULT)[address] [place] [address] 32181 Ketones Ql (U) TRACE Normal [facility] Comment on above: Performed By: #### 5 [id number], [id number] ####[facility] (DEFAULT)[address] [place] [address] 05319 Micro? Indicated Invalid Interpretation Code [facility] Comment on above: Performed By: #### 5 [id number], [id number] ####[facility] (DEFAULT)[address] [place] [address] 82917 UA Bilirubin Negative Normal [facility] Comment on above: Performed By: #### 5 [id number], [id number] ####[facility] (DEFAULT)[address] [place] [address] 10438 UA Blood Negative Normal NEGATIVE [facility] Comment on above: Performed By: #### 5 [id number], [id number] ####[facility] (DEFAULT)[address] [place] [address] 26713 UA Clarity CLEAR Normal CLEAR [facility] Comment on above: Performed By: #### 5 [id number], [id number] ####[facility] (DEFAULT)[address] [place] [address] 29048 UA Leuk Est TRACE Abnormal NEGATIVE [facility] Comment on above: Performed By: #### 5 [id number], [id number] ####[facility] (DEFAULT)[address] [place] [address] 35591 UA Nitrite Positive Abnormal NEGATIVE [facility] Comment on above: Performed By: #### 5 [id number], [id number] ####[facility] (DEFAULT)[address] [place] [address] 70385 UA pH 7.0 Normal 5-8 [facility] Comment on above: Performed By: #### 5 [id number], [id number] ####[facility] (DEFAULT)[address] [place] [address] 22940 UA Protein Negative Normal NEGATIVE [facility] Comment on above: Performed By: #### 5 [id number], [id number] ####[facility] (DEFAULT)[address] [place] [address] UA Spec Grav 1.020 Normal 1.001-1.035 [facility] Comment on above: Performed By: #### 5 [id number], [id number] ####[facility] (DEFAULT)[address] [place] [address] UA Urobilinogen 0.2 mg/dL Normal 0.2-1.0 [facility] Comment on above: Performed By: #### 5 [id number], [id number] ####[facility] (DEFAULT)[address] [place] [address] Urine Source Clean Catch Normal [facility] Comment on above: Performed By: #### 5 [id number], [id number] ####[facility] (DEFAULT)[address] [place] [address] [place] 08-22-2020 Wet [place]. Send results to Dr. Rojas scrape gatherer Negative for Trichimonas vaginalis. Negative for Yeast. Normal [facility] Comment on above: Performed By: #### 1 [id number] ####[facility] (DEFAULT)[address] [place] [id number] Consent Formson 03-30-2020 Consent Forms [id number] .[id number]2020 Provider Orders [id number] .00[facility] Coding Summaryon 03-25-2020 Coding Summary CODING DATE: 03/25/2020 FINAL [facility] STATUS: Home PAYOR: Commercial Insurance ADMIT DX: REASON FOR VISIT DX: Z20.828 Contact with and (suspected) exposure to other viral communicable diseases FINAL DX: PRINCIPAL: Z20.828 Contact with and (suspected) exposure to other viral communicable diseases SECONDARY: PYMT PROC APC STAT DESCRIPTION DOCTOR NAME DATE NOTE: The code number assigned matches the documented diagnosis and / or procedure in the patient's chart. However, the narrative phrase printed from the coding software may appear abbreviated, or result in slightly different terminology. Coded By: Gely Slade Date Saved: 03/25/2020 09:00 am [facility] 2019 Novel Coronavirus (CoVI D-19), TERESE LCon 03-24-2020 SARS-CoV-2 (COVID-19) RNA TERESE+probe Ql (Unsp spec) Not detected Invalid Interpretation Code Not Detected [facility] Comment on above: Order Comment: [id number] [phone] Result Comment: This nucleic acid amplification test was developed and its performance characteristics determined by [employer]. Nucleic acid amplification tests include PCR and TMA. This test has not been FDA cleared or approved. This test has been authorized by FDA under an Emergency Use Authorization (EUA). This test is only authorized for the duration of time the declaration that circumstances exist justifying the authorization of the emergency use of in vitro diagnostic tests for detection of SARS-CoV-2 virus and/or diagnosis of COVID-19 infection under section 564(b)(1) of the Act, 21 U.S.C. 360bbb-3(b) (1), unless the authorization is terminated or revoked sooner. When diagnostic testing is negative, the possibility of a false negative result should be considered in the context of a patient's recent exposures and the presence of clinical signs and symptoms consistent with COVID-19. An individual without symptoms of COVID-19 and who is not shedding SARS-CoV-2 virus would expect to have a negative (not detected) result in this assay. Performed At: [facility] [address] [facility], [place] [id number] Iram Calvillo [facility] Ph:[phone] Performed By: #### [id number] ####[facility] (DEFAULT)[address] [place] [address] Coding Summaryon 03-01-2020 Coding Summary CODING DATE: 03/01/2020 FINAL [facility] STATUS: Home PAYOR: Commercial Insurance ADMIT DX: REASON FOR VISIT DX: M54.9 Dorsalgia, unspecified FINAL DX: PRINCIPAL: M54.9 Dorsalgia, unspecified SECONDARY: M54.10 Radiculopathy, site unspecified PYMT PROC APC STAT DESCRIPTION DOCTOR NAME DATE NOTE: The code number assigned matches the documented diagnosis and / or procedure in the patient's chart. However, the narrative phrase printed from the coding software may appear abbreviated, or result in slightly different terminology. Coded By: Gely Slade Date Saved: 03/01/2020 09:51 am Normal [facility] Vital Signs Date Time Vital Sign Value Performing Clinician Facility 03-27-2023 10:03-0500 Blood Pressure Location ELPIDIO HENSON [facility] 03-27-2023 10:03-0500 Body temperature 97.16 [degF] ELPIDIO HENSON [facility] 03-27-2023 10:03-0500 Diastolic blood pressure 84 mm[Hg] ELPIDIO HENSON [facility] 03-27-2023 10:03-0500 Heart rate 74 /min ELPIDIO HENSON [facility] 03-27-2023 10:03-0500 Systolic blood pressure 128 mm[Hg] ELPIDIO HENSON [facility] Encounters Encounter Date Encounter Type Care Provider Facility Start: 05-02-2023 End: 05-03-2023 ambulatory Lowell Yesi DAVON Facility:[facility] Start: 05-02-2023 End: 05-02-2023 Patient encounter procedure Lowell MAYS [facility] Start: 04-18-2023 ambulatory Lowell P DAVON Facility :CD:[id number] Start: 03-27-2023 End: 03-28-2023 ambulatory JOHN HENSON Facility:[facility] [place] Start: 03-27-2023 End: 03-27-2023 Patient encounter procedure ELPIDIO HENSON [facility] Start: 02-26-2023 ambulatory Eamon Garcia acility:[facility] Start: 02-04-2023 ambulatory JOHN HENSON Fac ility:[facility] [place] Start: 11-26-2022 End: 11-26-2022 Emergency department patient visit [facility] Start: 01-23-2022 End: 01-23-[address] LOWELL ROJAS Facility:[facility] Start: 11-30-2021 End: 11-30-2021 ambulatory MEMO WOOD Facility:[facility] Start: 06-14-2021 End: 06-14-[address] EARNESTINE HUFF Facility: Procedures Date Procedure Procedure Detail Performing Clinician Start: 05-06-2019 Hysterectomy ELPIDIO PENG Colonoscopy ELPIDIO HENSON Hysterectomy ELPIDIO HENSON Tonsillectomy ELPIDIO HENSON Plan of Treatment Date Care Activity Detail Author Start: 07-16-2023 ambulatory Ambulatory Facility:[facility] Immunizations Immunization Date Immunization Notes Care Provider Liat ruiz 07-08-2002 hepatitis B vaccine, adult dosage ELPIDIO NATIVIDAD [facility] 02-06-2002 hepatitis B vaccine, adult dosage ELPIDIO NATIVIDAD [facility] 01-07-2002 hepatitis B vaccine, adult dosage ELPIDIO NATIVIDAD [facility] 01-07-2002 measles, mumps and rubella virus vaccine ELPIDIO NATIVIDAD [facility] 09-03-1988 diphtheria, tetanus toxoids and acellular pertussis vaccine ELPIDIO NATIVIDAD [facility] 09-03-1988 Hib, unspecified formulation ELPIDIO NATIVIDAD [facility] 12-13-1986 diphtheria, tetanus toxoids and acellular pertussis vaccine ELPIDIO NATIVIDAD [facility] 12-12-1985 measles, mumps and rubella virus vaccine ELPIDIO NATIVIDAD [facility] 1984 diphtheria, tetanus toxoids and acellular pertussis vaccine ELPIDIO NATIVIDAD [facility] 1984 diphtheria, tetanus toxoids and acellular pertussis vaccine ELPIDIO NATIVIDAD [facility] 1984 diphtheria, tetanus toxoids and acellular pertussis vaccine ELPIDIO NATIVIDAD [facility] Payers Date Payer Category Payer Self-pay 2022 Unknown [id number] 1984 Unknown [id number] 2.16.84 [id number] 1984 Unknown [id number] 2.16.84 [id number] 1984 Unknown [id number] 2.16.84 [id number] 1984 Unknown [id number] 2.16.8 [id number] 1984 Unknown [id number] 2.16.8 [id number] 1984 Unknown [id number] 2.16.8 [id number] 1984 Unknown [id number] 2.16.8 [id number] 1984 Unknown [id number] 2.16.8 [id number] 1959 Unknown [id number] 1959 Unknown [id number] Unknown [id number] 2.16.8 [id number] Social History Date Type Detail Facility Start: 03-27-2023 Tobacco smoking status Never [facility] Sex Assigned At Female [facility] Functional Status Date Assessment Result Facility 05-02-2023 Functional Status N/A [facility] 03-27-2023 Functional Status N/A [facility] History and physical note 05-02-2023 Note Date & Type Note Facility 05-02-2023 Note [id number] [facility] Clinical Note 05-02-2023 Note Date & Type Note Facility 05-02-2023 Note Cystoscopy with Uret hral Dilation ? Voiding after the procedure: there may be some pain, urethral bleeding, burning, urgency, frequency and blood tinged urine following the procedure. These symptoms usually resolve within 2-5 days. Drink the amount of fluid it takes to keep the urine pink to yellow or clear in color. Drinking enough water and fluids will help to ease any discomfort after your procedure. ? If you are having problems that seem out of the ordinary, please call. ? If unable to contact your physician and you feel it is an emergency, go to the nearest emergency room or call 911 ? Diet ? you may resume your normal diet. ? Activity ? you may resume your normal activities ? Call if you have a fever over 100 degrees [facility] Discharge instructions 05-02-2023 Note Date & Type Note Facility 05-02-2023 Hospital Discharg e instructions Patient Education 05/02/2023 13:29:53 [facility] - Cystoscopy with Urethral Dilation Discharge Instructions (Custom) Cystoscopy with Urethral Dilation Voiding after the procedure: there may be some pain, urethral bleeding, burning, urgency, frequency and blood tinged urine following the procedure. These symptoms usually resolve within 2-5 days. Drink the amount of fluid it takes to keep the urine pink to yellow or clear in color. Drinking enough water and fluids will help to ease any discomfort after your procedure. If you are having problems that seem out of the ordinary, please call. If unable to contact your physician and you feel it is an emergency, go to the nearest emergency room or call 911 Diet you may resume your normal diet. Activity you may resume your normal activities Call if you have a fever over 100 degrees Follow Up Care 04/30/2023 10:52:47 With:ELPIDIO HENSON Address: [address] [place] [address] [facility] (1) When:6 weeks Comments:Call for followup appointment [facility] Discharge instructions 03-27-2023 Note Date & Type Note Facility 03-27-2023 Hospital Discharg e instructions Patient Education 03/27/2023 11:11:35 Cystoscopy Cystoscopy Cystoscopy is a procedure that is used to help diagnose and sometimes treat conditions that affect the lower urinary tract. The lower urinary tract includes the bladder and the urethra. The urethra is the tube that drains urine from the bladder. Cystoscopy is done using a thin, tube-shaped instrument with a light and camera at the end (cystoscope). The cystoscope may be hard or flexible, depending on the goal of the procedure. The cystoscope is inserted through the urethra, into the bladder. Cystoscopy may be recommended if you have: Urinary tract infections that keep coming back. Blood in the urine (hematuria). An inability to control when you urinate (urinary incontinence) or an overactive bladder. Unusual cells found in a urine sample. A blockage in the urethra, such as a urinary stone. Painful urination. An abnormality in the bladder found during an intravenous pyelogram (IVP) or CT scan. Cystoscopy may also be done to remove a sample of tissue to be examined under a microscope (biopsy). Tell a health care provider about: Any allergies you have. All medicines you are taking, including vitamins, herbs, eye drops, creams, and buny-xbs-sjppdys medicines. Any problems you or family members have had with anesthetic medicines. Any blood disorders you have. Any surgeries you have had. Any medical conditions you have. Whether you are or may be . What are the risks? Generally, this is a safe procedure. However, problems may occur, including: Infection. Bleeding. Allergic reactions to medicines. Damage to other structures or organs. What happens before the procedure? Medicines Ask your health care provider about: Changing or stopping your regular medicines. This is especially important if you are taking diabetes medicines or blood thinners. Taking medicines such as aspirin and ibuprofen. These medicines can thin your blood. Do not take these medicines unless your health care provider tells you to take them. Taking ankf-uhs-kkkrzxq medicines, vitamins, herbs, and supplements. Tests You may have an exam or testing, such as: X-rays of the bladder, urethra, or kidneys. CT scan of the abdomen or pelvis. Urine tests to check for signs of infection. General instructions Follow instructions from your health care provider about eating or drinking restrictions. Ask your health care provider what steps will be taken to help prevent infection. These steps may include: ?Washing skin with a germ-killing soap. ?Taking antibiotic medicine. Plan to have a responsible adult take you home from the hospital or clinic. What happens during the procedure? You will be given one or more of the following: ?A medicine to help you relax (sedative). ?A medicine to numb the area (local anesthetic). The area around the opening of your urethra will be cleaned. The cystoscope will be passed through your urethra into your bladder. Germ-free (sterile) fluid will flow through the cystoscope to fill your bladder. The fluid will stretch your bladder so that your health care provider can clearly examine your bladder lopez. Your doctor will look at the urethra and bladder. Your doctor may take a biopsy or remove stones. The cystoscope will be removed, and your bladder will be emptied. The procedure may vary among health care providers and hospitals. What can I expect after the procedure? After the procedure, it is common to have: Some soreness or pain in your abdomen and urethra. Urinary symptoms. These include: ?Mild pain or burning when you urinate. Pain should stop within a few minutes after you urinate. This may last for up to 1 week. ?A small amount of blood in your urine for several days. ?Feeling like you need to urinate but producing only a small amount of urine. Follow these instructions at home: Medicines Take hzln-wby-shkfuxv and prescription medicines only as told by your health care provider. If you were prescribed an antibiotic medicine, take it as told by your health care provider. Do not stop taking the antibiotic even if you start to feel better. General instructions Return to your normal activities as told by your health care provider. Ask your health care provider what activities are safe for you. If you were given a sedative during the procedure, it can affect you for several hours. Do not drive or operate machinery until your health care provider says that it is safe. Watch for any blood in your urine. If the amount of blood in your urine increases, call your health care provider. Follow instructions from your health care provider about eating or drinking restrictions. If a tissue sample was removed for testing (biopsy) during your procedure, it is up to you to get your test results. Ask your health care provider, or the department that is doing the test, when your results will be ready. Drink enough fluid to keep your urine pale yellow. Keep all follow-up visits. This is important. Contact a health care provider if: You have pain that gets worse or does not get better with medicine, especially pain when you urinate. You have trouble urinating. You have more blood in your urine. Get help right away if: You have blood clots in your urine. You have abdominal pain. You have a fever or chills. You are unable to urinate. Summary Cystoscopy is a procedure that is used to help diagnose and sometimes treat conditions that affect the lower urinary tract. Cystoscopy is done using a thin, tube-shaped instrument with a light and camera at the end. After the procedure, it is common to have some soreness or pain in your abdomen and urethra. Watch for any blood in your urine. If the amount of blood in your urine increases, call your health care provider. If you were prescribed an antibiotic medicine, take it as told by your health care provider. Do not stop taking the antibiotic even if you start to feel better. This information is not intended to replace advice given to you by your health care provider. Make sure you discuss any questions you have with your health care provider. Document Revised: 01/03/2022 Document Reviewed: 12/02/2020 [employer] Patient Education 2022 [employer]. 03/27/2023 10:54:11 Overactive Bladder, Adult Overactive Bladder, Adult Overactive bladder is a condition in which a person has a sudden and frequent need to urinate. A person might also leak urine if he or she cannot get to the bathroom fast enough (urinary incontinence). Sometimes, symptoms can interfere with work or social activities. What are the causes? Overactive bladder is associated with poor nerve signals between your bladder and your brain. Your bladder may get the signal to empty before it is full. You may also have very sensitive muscles that make your bladder squeeze too soon. This condition may also be caused by other factors, such as: Medical conditions: ?Urinary tract infection. ?Infection of nearby tissues. ?Prostate enlargement. ?Bladder stones, inflammation, or tumors. ?Diabetes. ?Muscle or nerve weakness, especially from these conditions: ?A spinal cord injury. ?Stroke. ?Multiple sclerosis. ?Parkinson's disease. Other causes: ?Surgery on the uterus or urethra. ?Drinking too much caffeine or alcohol. ?Certain medicines, especially those that eliminate extra fluid in the body (diuretics). ?Constipation. What increases the risk? You may be at greater risk for overactive bladder if you: Are an older adult. Smoke. Are going through menopause. Have prostate problems. Have a neurological disease, such as stroke, dementia, Parkinson's disease, or multiple sclerosis (MS). Eat or drink alcohol, spicy food, caffeine, and other things that irritate the bladder. Are overweight or obese. What are the signs or symptoms? Symptoms of this condition include a sudden, strong urge to urinate. Other symptoms include: Leaking urine. Urinating 8 or more times a day. Waking up to urinate 2 or more times overnight. How is this diagnosed? This condition may be diagnosed based on: Your symptoms and medical history. A physical exam. Blood or urine tests to check for possible causes, such as infection. You may also need to see a health care provider who specializes in urinary tract problems. This is called a urologist. How is this treated? Treatment for overactive bladder depends on the cause of your condition and whether it is mild or severe. Treatment may include: Bladder training, such as: ?Learning to control the urge to urinate by following a schedule to urinate at regular intervals. ?Doing Kegel exercises to strengthen the pelvic floor muscles that support your bladder. Special devices, such as: ?Biofeedback. This uses sensors to help you become aware of your body's signals. ?Electrical stimulation. This uses electrodes placed inside the body (implanted) or outside the body. These electrodes send gentle pulses of electricity to strengthen the nerves or muscles that control the bladder. ?Women may use a plastic device, called a pessary, that fits into the vagina and supports the bladder. Medicines, such as: ?Antibiotics to treat bladder infection. ?Antispasmodics to stop the bladder from releasing urine at the wrong time. ?Tricyclic antidepressants to relax bladder muscles. ?Injections of botulinum toxin type A directly into the bladder tissue to relax bladder muscles. Surgery, such as: ?A device may be implanted to help manage the nerve signals that control urination. ?An electrode may be implanted to stimulate electrical signals in the bladder. ?A procedure may be done to change the shape of the bladder. This is done only in very severe cases. Follow these instructions at home: Eating and drinking Make diet or lifestyle changes recommended by your health care provider. These may include: ?Drinking fluids throughout the day and not only with meals. ?Cutting down on caffeine or alcohol. ?Eating a healthy and balanced diet to prevent constipation. This may include: ?Choosing foods that are high in fiber, such as beans, whole grains, and fresh fruits and vegetables. ?Limiting foods that are high in fat and processed sugars, such as fried and sweet foods. Lifestyle Lose weight if needed. Do not use any products that contain nicotine or tobacco. These include cigarettes, chewing tobacco, and vaping devices, such as e-cigarettes. If you need help quitting, ask your health care provider. General instructions Take msyr-ffg-tnxeglj and prescription medicines only as told by your health care provider. If you were prescribed an antibiotic medicine, take it as told by your health care provider. Do not stop taking the antibiotic even if you start to feel better. Use any implants or pessary as told by your health care provider. If needed, wear pads to absorb urine leakage. Keep a log to track how much and when you drink, and when you need to urinate. This will help your health care provider monitor your condition. Keep all follow-up visits. This is important. Contact a health care provider if: You have a fever or chills. Your symptoms do not get better with treatment. Your pain and discomfort get worse. You have more frequent urges to urinate. Get help right away if: You are not able to control your bladder. Summary Overactive bladder refers to a condition in which a person has a sudden and frequent need to urinate. Several conditions may lead to an overactive bladder. Treatment for overactive bladder depends on the cause and severity of your condition. Making lifestyle changes, doing Kegel exercises, keeping a log, and taking medicines can help with this condition. This information is not intended to replace advice given to you by your health care provider. Make sure you discuss any questions you have with your health care provider. Document Revised: 01/09/2021 Document Reviewed: 01/09/2021 [employer] Patient Education 2022 [employer]. Follow Up Care 02/04/2023 08:51:15 With:NATIVIDAD LOPEZ, ELPIDIO Rodriguez, URL Address: [address] [place] [address] [phone] When: Unknown Comments:sched cysto/poss UD [facility] Clinical Note 02-15-2021 Note Date & Type Note Facility 02-15-2021 Note Education Materials Infectious Disease COVID-19: Quarantine vs. Isolation QUARANTINE keeps someone who was in close contact with someone who has COVID-19 away from others. If you had close contact with a person who has COVID-19 ? Stay home until 14 days after your last contact. ? Check your temperature twice a day and watch for symptoms of COVID-19. ? If possible, stay away from people who are at higher-risk for getting very sick from COVID-19. ISOLATION keeps someone who is sick or tested positive for COVID-19 without symptoms away from others, even in their own home. If you are sick and think or know you have COVID-19 ? Stay home until after ? At least 10 days since symptoms first appeared and ? At least 24 hours with no fever without fever-reducing medication and ? Symptoms have improved If you tested positive for COVID-19 but do not have symptoms ? Stay home until after ? 10 days have passed since your positive test If you live with others, stay in a specific sick room or area and away from other people or animals, including pets. Use a separate bathroom, if available. cdc.gov/coronavirus 11/23/2019 This information is not intended to replace advice given to you by your health care provider. Make sure you discuss any questions you have with your health care provider. Document Revised: 04/07/2020 Document Reviewed: 04/07/2020 [employer] Patient Education ? 2020 [employer] COVID-19: How to Protect Yourself and Others Know how it spreads ? There is currently no vaccine to prevent coronavirus disease 2019 (COVID-19). ? The best way to prevent illness is to avoid being exposed to this virus. ? The virus is thought to spread mainly from jzkurc-wy-zxelhm. ? Between people who are in close contact with one another (within about 6 feet). ? Through respiratory droplets produced when an infected person coughs, sneezes or talks. ? These droplets can land in the mouths or noses of people who are nearby or possibly be inhaled into the lungs. ? COVID-19 may be spread by people who are not showing symptoms. Everyone should Clean your hands often ? Wash your hands often with soap and water for at least 20 seconds especially after you have been in a public place, or after blowing your nose, coughing, or sneezing. ? If soap and water are not readily available, use a hand plastic fixture builder that contains at least 60% alcohol. Cover all surfaces of your hands and rub them together until they feel dry. ? Avoid touching your eyes, nose, and mouth with unwashed hands. Avoid close contact ? Limit contact with others as much as possible. ? Avoid close contact with people who are sick. ? Put distance between yourself and other people. ? Remember that some people without symptoms may be able to spread virus. ? This is especially important for people who are at higher risk of getting very sick.www.cdc.gov/coronavirus/2019-ncov/need-extra- precautions/ubtrbq-oz-cphkay-risk.html Cover your mouth and nose with a mask when around others ? You could spread COVID-19 to others even if you do not feel sick. ? Everyone should wear a mask in public settings and when around people not living in their household, especially when social distancing is difficult to maintain. ? Masks should not be placed on young children under age 2, anyone who has trouble breathing, or is unconscious, incapacitated or otherwise unable to remove the mask without assistance. ? The mask is meant to protect other people in case you are infected. ? Do NOT use a facemask meant for a healthcare worker. ? Continue to keep about 6 feet between yourself and others. The mask is not a substitute for social distancing. Cover coughs and sneezes ? Always cover your mouth and nose with a tissue when you cough or sneeze or use the inside of your elbow. ? Throw used tissues in the trash. ? Immediately wash your hands with soap and water for at least 20 seconds. If soap and water are not readily available, clean your hands with a hand plastic fixture builder that contains at least 60% alcohol. Clean and disinfect ? Clean AND disinfect frequently touched surfaces daily. This includes tables, doorknobs, light switches, countertops, handles, desks, phones, keyboards, toilets, faucets, and sinks. www.cdc.gov/coronavirus/2019-ncov/prevent-getting- sick/rnvkhnbskmpv-nchf-tcpn.html ? If surfaces are dirty, clean them: Use detergent or soap and water prior to disinfection. ? Then, use a household disinfectant. You can see a list of EPA-registered household disinfectants here. cdc.gov/coronavirus 01/06/2020 This information is not intended to replace advice given to you by your health care provider. Make sure you discuss any questions you have with your health care provider. Document Revised: 01/14/2020 Document Reviewed: 11/12/2019 [employer] Patient Education ? 2019 [employer]. COVID-19 Frequently Asked Questions COVID-19 (coronavirus disease) is an infection that is caused by a virus (more content not included)... [facility] Clinical Note 08-22-2020 Note Date & Type Note Facility 08-22-2020 Note Education Materials Obstetrics and Gynecology Urinary Tract Infection, Adult A urinary tract infection (UTI) is an infection of any part of the urinary tract. The urinary tract includes the kidneys, ureters, bladder, and urethra. These organs make, store, and get rid of urine in the body. Your health care provider may use other names to describe the infection. An upper UTI affects the ureters and kidneys (pyelonephritis). A lower UTI affects the bladder (cystitis) and urethra (urethritis). What are the causes? Most urinary tract infections are caused by bacteria in your genital area, around the entrance to your urinary tract (urethra). These bacteria grow and cause inflammation of your urinary tract. What increases the risk? You are more likely to develop this condition if: ? You have a urinary catheter that stays in place (indwelling). ? You are not able to control when you urinate or have a bowel movement (you have incontinence). ? You are female and you: ? Use a spermicide or diaphragm for control. ? Have low estrogen levels. ? Are . ? You have certain genes that increase your risk (genetics). ? You are sexually active. ? You take antibiotic medicines. ? You have a condition that causes your flow of urine to slow down, such as: ? An enlarged prostate, if you are male. ? Blockage in your urethra (stricture). ? A kidney stone. ? A nerve condition that affects your bladder control (neurogenic bladder). ? Not getting enough to drink, or not urinating often. ? You have certain medical conditions, such as: ? Diabetes. ? A weak disease-fighting system (immunesystem). ? Sickle cell disease. ? Gout. ? Spinal cord injury. What are the signs or symptoms? Symptoms of this condition include: ? Needing to urinate right away (urgently). ? Frequent urination or passing small amounts of urine frequently. ? Pain or burning with urination. ? Blood in the urine. ? Urine that smells bad or unusual. ? Trouble urinating. ? Cloudy urine. ? Vaginal discharge, if you are female. ? Pain in the abdomen or the lower back. You may also have: ? Vomiting or a decreased appetite. ? Confusion. ? Irritability or tiredness. ? A fever. ? Diarrhea. The first symptom in older adults may be confusion. In some cases, they may not have any symptoms until the infection has worsened. How is this diagnosed? This condition is diagnosed based on your medical history and a physical exam. You may also have other tests, including: ? Urine tests. ? Blood tests. ? Tests for sexually transmitted infections (STIs). If you have had more than one UTI, a cystoscopy or imaging studies may be done to determine the cause of the infections. How is this treated? Treatment for this condition includes: ? Antibiotic medicine. ? Pnqx-puj-nlguiad medicines to treat discomfort. ? Drinking enough water to stay hydrated. If you have frequent infections or have other conditions such as a kidney stone, you may need to see a health care provider who specializes in the urinary tract (urologist). In rare cases, urinary tract infections can cause sepsis. Sepsis is a life-threatening condition that occurs when the body responds to an infection. Sepsis is treated in the hospital with IV antibiotics, fluids, and other medicines. Follow these instructions at home: Medicines ? Take tlzl-xpe-gumrzgg and prescription medicines only as told by your health care provider. ? If you were prescribed an antibiotic medicine, take it as told by your health care provider. Do not stop using the antibiotic even if you start to feel better. General instructions ? Make sure you: ? Empty your bladder often and completely. Do not hold urine for long periods of time. ? Empty your bladder after sex. ? Wipe from front to back after a bowel movement if you are female. Use each tissue one time when you wipe. ? Drink enough fluid to keep your urine pale yellow. ? Keep all follow-up visits as told by your health care provider. This is important. Contact a health care provider if: ? Your symptoms do not get better after 1?2 days. ? Your symptoms go away and then return. Get help right away if you have: ? Severe pain in your back or your lower abdomen. ? A fever. ? Nausea or vomiting. Summary ? A urinary tract infection (UTI) is an infection of any part of the urinary tract, which includes the kidneys, ureters, bladder, and urethra. ? Most urinary tract infections are caused by bacteria in your genital area, around the entrance to your urinary tract (urethra). ? Treatment for this condition often includes antibiotic medicines. ? If you were prescribed an antibiotic medicine, take it as told by your health care provider. Do not stop using the antibiotic even if you start to feel better. ? Keep all follow-up visits as told by your health care provider. This i (more content not included)... [facility] Clinical Note 03-22-2020 Note Date & Type Note Facility 03-22-2020 Note Nasal swab performed without complication. Patient tolerated well. Education given. Patient verbalized understanding. [Electronically Signed on: 03/22/2020 14:52 EST] Millicent Galdamez RN [Verified on: 03/22/2020 14:52 EST] Millicent Galdamez RN [facility] Evaluation + Plan note Note Date & Type Note Facility Evaluation + Plan note No data available for this section [facility] Evaluation + Plan note Note Date & Type Note Facility Evaluation + Plan note Future Appointments Appointment Date:07/16/2023 09:00:00 AM Scheduled Provider:ELPIDIO HNESON PA-C Location:[facility] Appointment Type:URO Office Visit [facility] Progress note Note Date & Type Note Facility Progress note No data available for this section [facility] Summary Purpose Family History No Family History Records FoundNo Family History Records FoundNo Family History Records Found No data available for this section No data available for this section No Family History Records FoundNo Family History Records Found Advance Directives No Advanced Directives Records FoundNo Advanced Directives Records FoundNo Advanced Directives Records FoundNo Advanced Directives Records FoundNo Advanced Directives Records Found Additional Source Comments INFORMATION SOURCE (unrecogn ized section and content) DATE CREATED AUTHOR 02/28/2021 [facility] DATE CREATED AUTHOR AUTHOR'S ORGANIZ ATION 02/04/2022 [facility] DATE CREATED AUTHOR AUTHOR'S ORGANIZ ATION 11/26/2022 [facility] DATE CREATED AUTHOR AUTHOR'S ORGANIZ ATION 05/04/2023 [facility] DATE CREATED AUTHOR AUTHOR'S ORGANIZ ATION 05/18/2023 [facility] Patient Care team informatio n (unrecognized section and content) Personnel Name: Sumeet VÁSQUEZ DO Address: Address: [address] , [facility], [place] [address] Personnel Name: SAVANNAH RODRIGUEZ MD Address: Address: [address] [place] [id number] PERTAINING TO PATIENTS WHO ARE OR HAVE BEEN ENROLLED IN A CHEMICAL DEPENDENCY/SUBSTANCEABUSE PROGRAM, SOME INFORMATION MAY BE OMITTED. This clinical summary was aggregated from multiple sources. Caution should be exercised in using it in the provision of clinical care. This summary normalizes information from multiple sources, and as a consequence, information in this document may materially change the coding, format and clinical context of patient data. In addition, data may be omitted in some cases. CLINICAL DECISIONS SHOULD BE BASED ON THE PRIMARY CLINICAL RECORDS. [facility]. provides no warranty or guarantee of the accuracy or completeness of information in this document.
[2023-05-23 06:22] LABS: Basophils Percent Auto 0.6 % (0.2-2.0); Eosinophils Absolute Auto 0.1 10^3/uL (0.0-0.7); Eosinophils Percent Auto 1.6 % (0.9-7.0); Hematocrit 36.5 % (36.0-48.0); Hemoglobin 12.1 g/dL (12.0-16.0); Immature Granulocytes Abs Auto 0.01 10^3/uL (0.00-0.03); Immature Granulocytes Pct Auto 0.2 % (0.0-0.5); Lymphocytes Absolute Auto 2.4 10^3/uL (1.2-3.8); Lymphocytes Percent Auto 37.3 % (20.5-60.0); Mean Corpuscular HGB Conc 33.2 g/dL (29.9-35.2); Mean Corpuscular Hemoglobin 30.3 pg (26.7-34.0); Mean Corpuscular Volume 91.5 fL (81.0-99.0); Mean Platelet Volume 10.8 fL (9.5-13.5); Monocytes Absolute Auto 0.6 10^3/uL (0.3-0.8); Monocytes Percent Auto 9.2 % (1.7-12.0); Neutrophils Absolute Auto 3.3 10^3/uL (1.4-6.5); Neutrophils Percent Auto 51.1 % (43.0-75.0); Platelet Count 234 10^3/uL (150-450); Red Blood Count 3.99 10^6/uL (4.20-5.40); Red Cell Distribution Width 12.4 % (11.0-15.0); White Blood Count 6.4 10^3/uL (4.0-11.0)
[2023-05-23] MEDS: LACTATED RINGER'S SOLUTION 1,000 ML 50 ML IV (06:57)
--- NOTE | 2023-05-23 08:30 | PM.ONB ---
Brief Operative Note Date of procedure: 05/23/23 Pre-op diagnosis: pelvic pain Post-op diagnosis: same as pre-op Procedure: NAME OF PROCEDURE: [diagnostic laparoscopy with lysis of adhesions] PROCEDURE: The patient was taken back to the Operating Room where she was placed in dorsal lithotomy position after given general anesthesia. The patient was prepped and draped in normal sterile fashion. A sponge stick was placed into the patient's vagina. Attention was turned to the patient's abdomen, where a small umbilical incision was made. The fascia was tented using Juanito clamps and the fascia was entered sharply. Confirmation of intraabdominal placement of the 10 mm port was confirmed under direct visualization using a laparoscope. The patient's abdomen was then insufflated using CO2 gas with approximately 4 liters. A second port was placed left laterally, this was done under direct visualization with a 5 mm port. Survey of the patient's abdomen demonstrated normal liver and gallbladder. Survey of the patient's pelvic anatomy demonstrated absent tubes and uterus, normal appearing rt ovary, normal left appearing ovary however its adhered to bowel and pelvic side wall, omental adhesions present, omental adhesions taken down using ligasure, blunt dissection of adhesion of left ovary. No endometrial implants could be noted, no evidence of any pelvic disease was seen, normal appearing pelvic cavity. All instruments were removed from the patient's abdomen. The patient's abdomen was deinsufflated of CO2 gas. The patient tolerated the procedure well. Sponge stick was removed from the patient's vagina. The patient's infraumbilical fascia was closed using #0 Vicryl on a GI needle. The patient's skin was closed laterally and infraumbilically using 4-0 Vicryl. The patient tolerated the procedure well. Sponge, lap and needle counts were correct x 2. The patient was taken to Recovery Room in stable condition. Anesthesia: CARMENA Surgeon: Sumeet Vásquez Sprayer Automatic Spray Machine: Glenis Tirado Estimated blood loss (mL): 5 Pathology: none sent Condition: stable Disposition: PACU Urinary Catheter Management Urinary Catheter Management Urethral: Cath placed during this visit: no
[2023-05-23] MEDS: LACTATED RINGER'S SOLUTION 1,000 ML 150 ML IV (08:55)
[2023-05-23] MEDS: HYDROCODONE/ACET 5-325 MG TABLET 1 TAB PO (09:12)
--- NOTE | 2023-05-23 09:19 | PC.NURSE ---
Medicated for pain as ordered
--- NOTE | 2023-05-23 09:57 | PC.NURSE ---
PATIENT URINATED POST SURGICAL PROCEDURE WITHOUT ANY PROBLEMS.
== END 2023-05-23 10:18 | disposition home or self-care (01) ==
PROVIDERS: Visit Provider Obstetrics & Gynecology
PROC: (CPT 840; principal; 2023-05-23 07:30)
DX: R10.2 Pelvic and perineal pain (principal); N73.6 Female pelvic peritoneal adhesions (postinfective); Z90.710 Acquired absence of both cervix and uterus; Z87.891 Personal history of nicotine dependence; R56.9 Unspecified convulsions; F31.9 Bipolar disorder, unspecified
CPT/HCPCS: 49329; 36415; 85025; J0131; J0330; J1100; J1885; J2405; J2704; J3010

== ENCOUNTER 2023-08-26 22:08 | Outpatient (REF) | payer BC, SELFPAY ==
--- OUTSIDE RECORDS SUMMARY | 2023-08-26 22:24 | XMS_ITS | CCD ---
Author Organization [facility] Care Team Providers Care Analytics Consultant Name Role Phone MEMO WOOD Admitting Unavailable MEMO WOOD Attending Unavailable MEMO WOOD Consulting Unavailable JENNIFER, DR SAVANNAH Underwood Primary Care Unavailable KARASIPreston, DR ETIENNE Consulting Unavailable JENNIFER, DR SAVANNAH [facility] Unavailable KARNEFTALY, DR ETIENNE Admitting Unavailable CRYSTAL, DR ETIENNE Attending Unavailable DARIA, DR COLBY Attending Unavailable DARIA, DR COLBY Admitting Unavailable TERESO, DR REAL Mccain Consulting Unavailable JENNIFER, DR SAVANNAH [facility]wood Primary [facility] Unavailable DARIA, DR COLBY Consulting Unavailable TIBURCIO OROZCO Consulting Unavailable Sumeet VÁSQUEZ Primary Care Physician [phone] JENNIFER, SAVANNAH Underwood Primary Care Physician KATLYN MITCHELL Attending Unavailable SUMEET VÁSQUEZ Attending Unavailable KATLYN MITCHELL Attending Unavailable ELPIDIO HENSON Attending Unavailable Sumeet VÁSQUEZ Referring Unavailable ELPIDIO HENSON Attending Unavailable Lowell MAYS Attending Unavailable Lowell MAYS Admitting Unavailable Lowell MAYS Referring Unavailable Lowell MAYS Attending Unavailable Eamon Leach Attending Unavailab Eamon Del Cid Admitting Unavailab [facility] [place] Primary [facility] Unavailable Allergies Allergy Classification Reported Allergen(s) Allergy Type Date of Onset Reaction(s) Facility (2 sources) levoFLOXacin; Translations: [Levaquin] Drug Allergy 3 [facility] Repository (4 sources) Bee/Wasp/Ant venom; Translations: [Bee Stings] Propensity to adverse reactions to substance Swelling (finding) [facility] (3 sources) levoFLOXacin; Translations: [levofloxacin] Drug Allergy [facility] (1 source) levoFLOXacin Drug Allergy [facility] Repository Medications Current Medications Medication Drug Class(es) Dates Sig (Normalized) Sig (Original) busPIRone hydrochloride 7.5 mg oral tablet (3 sources) Start: 03-27-2023 busPIRone 7.5 mg oral tablet Refills(s) 0 Start Date: 03/27/23 Status: Ordered phenazopyridine hydrochloride 200 mg oral tablet (1 source) Start: 03-27-2023 End: 03-30-2023 Pyridium 200 mg Tab 200 mg = 1 tab(s), Oral, TIDPC, start taking following cystoscopy procedure, X 3 day(s), # 9 tab(s), Refills(s) 0, [id number], 157, cm, 03/27/23 10:11:00 EST, Height/Length Dosing, 68, kg, 03/27/23 10:11:00 EST, Weight Dosing Start Date: 03/27/23 Stop Date: 03/30/23 Status: Ordered risperiDONE 0.5 mg oral tablet (3 sources) Atypical Antipsychotic Start: 03-27-2023 take 1 tablet by mouth twice daily risperidone 0.5 mg Tab 0.5 mg = 1 tab(s), Oral, BID, # 180 tab(s), Refills(s) 0 Start Date: 03/27/23 Status: Ordered Completed/Discontinued Medications Medication Drug Class(es) Dates Sig (Normalized) Sig (Original) cephalexin 500 mg oral capsule (4 sources) Cephalosporin Antibacterial Start: 04-02-2023 take 1 capsule by mouth once daily Keflex 500 mg Cap 500 mg = 1 cap(s), Oral, BID, Take 1 cap day prior to procedure and 1 cap day of procedure - afterwards, # 2 cap(s), Refills(s) 0, [facility]acy: [id number], 157, cm, 03/27/23 10:11:00 EST, Height/Length Dosing, 68, kg, 03/27/23 10:11:00 EST, Weight Dosing Start Date: 04/30/23 Status: Ordered Problems Active Problems Problem Classification Problem Date Documented Date Episodic/Chronic Abdominal pain (8 sources) Unspecified abdominal pain; Translations: [Pain in pelvis] Onset: 06-14-2021 Episodic Allergic reactions (2 sources) Allergic reaction; Translations: [Allergic Reaction] Onset: 11-26-2022 Episodic Anxiety disorders (4 sources) Anxiety disorder, unspecified; Translations: [ANXIETY DISORDER UNSPECIFIED] Onset: 11-30-2021 Chronic Biliary tract disease (3 sources) Gallstone 03-27-2023 Episodic Calculus of urinary tract (7 sources) History of calculus of kidney; Translations: [Personal history of urinary calculi] Onset: 03-27-2023 Episodic Genitourinary symptoms and ill-defined conditions (5 sources) Sensation as if bladder still full; Translations: [Feeling of incomplete bladder emptying] Onset: 03-27-2023 Episodic Immunizations and screening for infectious disease (1 source) Encounter for screening for human papillomavirus (HPV); Translations: [ENC SCREENING HUMAN PAPILLOMAVIRUS] Onset: 01-24-2022 Episodic Mood disorders (3 sources) Bipolar disorder 03-27-2023 Chronic Noninfectious gastroenteritis (3 sources) Colitis 03-27-2023 Episodic Other diseases of bladder and urethra (1 source) Detrusor overactivity; Translations: [Overactive bladder] Onset: 03-27-2023 Chronic Other diseases of bladder and urethra (3 sources) Overactive bladder 03-27-2023 Chronic Other ear and sense organ disorders (3 sources) Hearing loss 03-27-2023 Chronic Other female genital disorders (1 source) Other specified noninflammatory disorders of vagina; Translations: [OTH SPEC NONINFLAMMATORY D/O VAGINA] Onset: 01-24-2022 Episodic Other screening for suspected conditions (not mental disorders or infectious disease) (4 sources) Encounter for screening for malignant neoplasm of cervix; Translations: [ENC SCREENING MALIG NEOPLASM CERV] Onset: 01-23-2022 Episodic Ovarian cyst (3 sources) Cyst of ovary 03-27-2023 Episodic Screening and history of mental health and substance abuse codes (4 sources) H/O: Disorder; Translations: [Personal history of nicotine dependence] Onset: 03-27-2023 Episodic Substance-related disorders (2 sources) Nicotine dependence, other tobacco product, uncomplicated; Translations: [Nicotine dependence, cigarettes, uncomplicated] Onset: 06-15-2021 Chronic Unclassified (3 sources) Finding of sensation of bladder 03-27-2023 Viral infection (3 sources) Genital herpes simplex 11-22-2023 Chronic Past or Other Problems Problem Classification Problem Date Documented Da te Episodic/Chronic Other aftercare (1 source) 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; Translations: [OTH STUDENT DEVELOPMENT COORDINATOR CURRENT DRUG THERAPY] Onset: 06-15-2021 Episodic Residual codes; unclassified (1 source) Acquired absence of both cervix and uterus; Translations: [ACQUIRED ABSENCE BOTH CERVIX AND UTERUS] Onset: 06-15-2021 Episodic Results Test Name Value Interpretation Reference Range Facility Consent for Procedure/Surger yon 05-02-2023 Consent for Procedure/Surgery [id number]# 1.00TIFF Normal [facility] Consent for Treatmenton 04-06 Consent for Treatment [id number]#1 .00TIFF Normal [facility] Inpatient Patient Summaryon 05-02-2023 Inpatient Patient Summary [address] [address] Clinical Summary Person Information Name: TALHA SINGLETON Age: 37 Years : 1985 Sex: Female PCP: SAVANNAH RODRIGUEZ MD Marital Status: Race: Other Race Ethnicity: Non- or Language: Italian Visit Id: Visit Reason: OVER ACTIVE BLADDER, INCOMPLETE BLADDER EMPTY Speciality: Acuity: Enc Type: Outpatient Med Service: Surgery Arrival: 05/02/2023 12:09:38 Discharge: Dispo Type: Address: [address] [place] [id number] Provider Notes: Diagnosis: Problems Active Ovarian cyst [...] Follow up: With: Address: When: ELPIDIO HENSON [address] [place] [address] [place] [id number] [facility] () Within 6 weeks Comments: Call for followup appointment Type Location Start Finish [facility] URO Office Visit [facility] [place] 07/16/2023 9:00 AM 07/16/2023 9:15 AM Confirmed Patient Education Information: EU - Cystoscopy with Urethral Dilation Discharge Instructions (Custom) [facility] IntraOperative Documentson 1 07-03-2022 IntraOperative Documents [id number]# 1.00TIFF [facility] Main OR Intraoperative Recor don 05-02-2023 Main OR Intraoperative Record IntraOp Document Type FTURO Summary Primary Physician: Lowell MAYS MD Finalized Date/Time: 05/02/23 13:28:39 Pt. Name: TALHA SINGLETON/Sex: 1985 Female Med Rec #: [id number] Physician: Lowell MAYS MD Financial #: [id number] Pt. Type: O Room/Bed: / Admit/Disch: 05/02/23 12:09:38 - Institution: Case Times FTURO Entry 1 Patient Times In Room 05/02/23 13:01:00 Out Room 05/02/23 13:30:00 Procedure Times Start 05/02/23 13:18:00 Stop 05/02/23 13:26:00 Anesthesia Times Last Modified By: Zeenat NICHOLAS, Shilpi Ye P 05/02/23 13:27:17 Case Attendance FTURO Entry 1 Entry 2 Entry 3 Case Attendee DAVON CLAUDIO, Lowell Epperson RN, Rock Barron Role Performed Surgeon - Primary Ep Technologist - Primary Scrub - Primary Time In 05/02/23 13:01:00 05/02/23 13:01:00 05/02/23 13:01:00 Time Out 05/02/23 13:30:00 05/02/23 13:30:00 05/02/23 13:30:00 Procedure CYSTOSCOPY LOCAL WITH CYSTOSCOPY LOCAL WITH CYSTOSCOPY LOCAL WITH URETHRAL DILATION(.) URETHRAL DILATION(.) URETHRAL DILATION(.) Comments Last Modified By: Zeenat NICHOLAS, Shilpi Epperson RN, Shilpi Epperson RN, Shilpi Key 05/02/23 Cassi P 05/02/23 Cassi P 05/02/23 13:27:18 13:27:18 13:27:18 Surgical Procedures FTURO Entry 1 Procedure Description Procedure CYSTOSCOPY LOCAL WITH Modifiers . URETHRAL DILATION Surgeon Description CYSTOSCOPY LOCAL WITH URETHRAL DILATION Primary Procedure Yes Primary Surgeon DAVON CLAUDIO, Lowell Key Start 05/02/23 13:18:00 Stop 05/02/23 13:26:00 Anesthesia Type Local Surgical Service Urology Wound Class 2 - Clean-Contaminated Last Modified By: Zeenat NICHOLAS, Shilpi Key 05/02/23 13:27:10 General Case Data FTURO Pre-Care [...] STRICTURE Last Modified By: Zeenat NICHOLAS, Shilpi Ye P 05/02/23 13:17:29 Post-Care Text: The patient is [...] 05/02/23 13:27 Shilpi Epperson RN 05/02/23 13:28 Normal [facility] Main OR Preoperative Recordo n 05-02-2023 Main OR Preoperative Record Holding Area Document Type FTURO Summary Primary Physician: Lowell MAYS MD Finalized Date/Time: 05/02/23 12:31:22 Pt. Name: TALHA SINGLETON/Sex: 1985 Female Med Rec #: [id number] Physician: Lowell MAYS MD Financial #: [id number] Pt. Type: O Room/Bed: / Admit/Disch: 05/02/23 [...] Comment: Complaints of Pain: Yes Pain Comment: -07/13 - CYST TO LEFT OVARY Skin Integrity [...] 12:29 Jeanette Rodríguez RN 05/02/23 12:31 Normal [facility] Operative Reporton Operative Report Patient: TALHA SINGLETON Age: 37 years Sex: Female : 1985 Associated Diagnoses: None Author: Lowell MAYS MD Procedure Operative Information Details: Date/ Time: 05/02/2023 13:30:00. Pre-Op Dx: Unspecified urethral stricture, female ([id number] N35.92, Working, Medical), Urinary retention ([id number] R33.9, Working, Medical). Post-Op Dx: Same. Anesthesia [...] urine. The Urethra was dilated to: 30 Chadian w/ sounds, This causes minimal bleeding.. Devices Implanted: None. Removal: Cystoscope is removed, The patient tolerated it well. Postoperative Information Discharge: Patient is discharged home with antibiotic coverage, Follow up arranged, Follow up with Sally Henson PA-C in about six weeks. . Normal [facility] Comment on above: Result Comment: Elec tronically Signed By: Lowell MAYS MD\.br\Date and Time Signed: 05/02/23 13:35 EST Outpatient Surgery Discharge Instructionon 05-02-2023 Outpatient Surgery Discharge Instruction [address] [address] Patient Discharge Instructions PERSON INFORMATION Name: TALHA [...] Follow up: With: Address: When: ELPIDIO HENSON [address] [place], [place] [address], [place] [phone] [facility] (1) Within 6 weeks Comments: Call for followup appointment Type Location Start [facility] URO Office Visit [facility] CARLOTTA Zafar 07/16/2023 9:00 AM 07/16/2023 9:15 [...] Date You may receive a survey from Tom Mckeon asking you to rate your care experience. Your feedback is important and will help us understand what we do well and how we can improve the quality of care we provide to you, your loved ones and our community. It?s an honor to serve you. Thank you for choosing [facility] Provider Letteron 04-30-2023 Provider Letter April 30, 2023 TALHA SINGLETON [address] [place] [address] : 1985 To Whom It May Concern, Please excuse above patient from work. Date of Illness: From: 04/19/23 To: 05/07/23 May Return to Work On: 05/07/23 Restrictions: None Sincerely, Lian Hummel CMA/ Dr Lowell Mays MD [facility] Comment on above: Other Comment: WRONG PT! Ambulatory Visit Summaryon 1 05-27-2022 Ambulatory Visit Summary TALHA SINGLETON :1985 Visit Date:03/27/2023 Ambulatory Visit Instructions Your Diagnosis Feeling of incomplete bladder emptying OAB (overactive bladder) History of kidney stones Former smoker Ovarian cyst Tests Performed Urnls Dip Stick Auto w/o Microscopy POC 76025 Your Care Team Attending Physician - ELPIDIO [...] the Following Appointments Follow Up with NATIVIDAD PA-C, ELPIDIO E, URL When: Comments: sched cysto/poss UD Where: [address] [place] [phone] Medications What How Much When Instructions Unchanged busPIRone (busPIRone 7.5 mg oral tablet) Contact prescribing physician if questions or concerns Unchanged risperidone (risperidone 0.5 mg Tab) 1 Tablets By Mouth 2 times a day Contact prescribing physician if questions or concerns Test Results Urnls Dip Stick Auto w/o Microscopy POC 27393 (03/27/2023) Bilirubin Urine Dipstick - Negative Blood Urine Dipstick - Negative Glucose Urine Dipstick - Negative Ketones Urine Dipstick - Negative Leukocytes Urine Dipstick - Negative Nitrite Urine Dipstick - Negative Protein Urine Dipstick - Negative Specific [place] Urine Dipstick - <=1.005 Urine Appearance Urine [...] including vitamins, herbs, eye drops, creams, and zhah-zff-qnidfaq medicines. ? Any problems you or family [...] tells you to take them. ? Taking vxhx-kuo-rdadqez medicines, vitamins, herbs, and supplements. Tests You may have an exam or testing, such as: ? X-rays of the bladder, urethra, or kidneys. ? CT scan of the abdomen or pelvis. ? Urine tests to check for signs of infection. (more content not included)... Normal [facility] Consultation Noteon 03-27-20 Consultation Note [id number]# 1.00TIFF Normal [facility] Formson 03-27-2023 Forms [id number]#1. 00TIFF [facility] Patient Educationon 03-27-20 Patient Education Obstetrics and [...] health care provider. General instructions ? Take qygp-vhh-azujzwh and prescription medicines only as told by [...] monitor yo (more content not included)... 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 Sumeet Vásquez DO for urinary retention and hx of kidney stones. Last stone was passed was 2009 she thinks Never seen in our office before. CT AP wo con done 08/24/20 at [facility]. CT AP wo con and KUB done 06/14/21 at [facility]. US pelvis w/ transvaginal done 02/05/23 at [facility]. 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 Feeling of incomplete bladder emptying (R39.14: [...] tid x3days after cysto. Rx sent to [facility]. -Double void maneuvers Ordered: Body Mass Index (BMI) documented 3008F Body Mass Index (BMI) documented 3008F Current tobacco non-user 1036F Current tobacco non-user 1036F Depression Screening Negative 3352F Depression Screening Negative 3352F E&M of New Patient Moderate 45-59 Min 02976 Influenza immunization status assessed 1030F Influenza immunization [...] Ordered: Body (more content not included)... Normal [facility] Comment on above: Result Comment: Elec tronically Signed By: ELPIDIO HENSON PA-C\.br\Date and Time Signed: 03/27/23 11:32 EST\.br\Electronically Co-Signed By: Era Villegas\.br\Date and Time Co-Signed: 03/27/23 11:16 EST PAP ACOG PANEL 2: 30 to 65on 01-29-2022 . . Normal [facility] Comment on above: Result Comment: Perf ormed at: WB Performed By: #### 4 [id number] #### [facility] [address] [address] [address] Ab Sloan Age Gdln ACOG Testing 30-65 Normal [facility] Comment on above: Performed By: #### 4 [id number] #### [facility] [address] [address] [address] Ab Sloan DIAGNOSIS: Comment Normal [facility] Comment on above: Result Comment: NEGA TIVE FOR INTRAEPITHELIAL LESION OR MALIGNANCY. SHIFT IN CRISTIN SUGGESTIVE OF BACTERIAL VAGINOSIS. Performed at: WB Performed By: #### 4 [id number] #### [facility] [address] [address] [address] Ab Sloan HPV Aptima Negative Normal Negative [facility] Comment on above: Result Comment: This nucleic acid amplification test detects fourteen high-risk HPV types (16,18,31,33,35,39,45,51,52,56,58,59,66,68) without differentiation. Performed at: =G Performed By: #### 4 [id number] #### [facility] [address] [place] [address] Dr. Ab Sloan Methodology: Comment Normal [facility] Comment on above: Result Comment: This liquid based ThinPrep(R) pap test was screened with the use of an image guided system. Performed at: WB Performed By: #### 4 [id number] #### [facility] [address] [place] [address] Dr. Ab Sloan Note: Comment Normal [facility] Comment on above: Result Comment: The Pap smear is a screening test designed to aid in the detection of premalignant and malignant conditions of the uterine cervix. It is not a diagnostic procedure and should not be used as the sole means of detecting cervical cancer. Both false-positive and false-negative reports do occur. . Performed at: WB Performed By: #### 4 [id number] #### [facility] [address] [place] [address] Dr. Ab Sloan Performed by: Comment Normal [facility] Comment on above: Result Comment: Ashley Rider, Concrete Products Dispatcher (ASCP) Performed at: WB Performed By: #### 4 [id number] #### [facility] [address] [place] [address] Dr. Ab Sloan Specimen adequacy: Comment Normal [facility] Comment on above: Result Comment: Sati sfactory for evaluation. No endocervical component is identified. Performed at: WB Performed By: #### 4 [id number] #### [facility] [address] [place] [address] Dr. Ab Sloan VAGINITIS/VAGINOSIS DNA PROB Tejas 01-24-2022 Betsy species Negative Normal Negative [facility] Comment on above: Performed By: #### V AGINT #### [facility] [address] [place] [address] Dr. Ab Sloan Gardnerella vaginalis Positive Abnormal Negative [facility] Comment on above: Performed By: #### V AGINT #### [facility] [address] [place] [address] Dr. Ab Sloan Trichomonas vaginalis Negative Normal Negative [facility] Comment on above: Performed By: #### V AGINT #### [facility] [address] [place] [address] Dr. Ab Sloan PROCALCITONINon 12-04-2021 Procalcitonin <0.02 Normal 0.00-0.08 [facility] Comment on above: Result Comment: . A [...] are obtained. Performed By: #### P CTLC ####[facility] [address] [address]Dr. Ab Sloan CBC AUTO DIFFon 11-30-2021 BASO # 0.0 103/ul Normal 0.0-0.1 [facility] Comment on above: Performed By: #### C BC #### [facility] [address] [place] [address] Dr. Ab Sloan Basophils/100 WBC (Bld) 0.5 % Normal 0.2-2.0 [facility] Comment on above: Performed By: #### C BC #### [facility] [address] [place] [address] Dr. Ab Sloan EO # 0.1 103/ul Normal 0.0-0.7 [facility] Comment on above: Performed By: #### C BC #### [facility] [address] [place] [address] Dr. Ab Sloan Eosinophils/100 WBC (Bld) 0.8 % Critically low 0.9-7.0 [facility] Comment on above: Performed By: #### C BC #### [facility] [address] [place] [address] Dr. Ab Sloan Erythrocyte distribution width (RBC) [Ratio] 12.2 % Normal 11.0-15.0 [facility] Comment on above: Performed By: #### C BC #### [facility] [address] [place] [address] Dr. Ab Sloan Hematocrit (Bld) [Volume fraction] 38.2 % Normal 36.0-48.0 [facility] Comment on above: Performed By: #### C BC #### [facility] [address] [place] [address] Dr. Ab Sloan Hemoglobin (Bld) [Mass/Vol] 13.1 g/dL Normal 12.0-16.0 [facility] Comment on above: Performed By: #### C BC #### [facility] [address] [place] [address] Dr. Ab Sloan IG # 0.01 10e3/ul Normal 0.00-0.03 [facility] Comment on above: Performed By: #### C BC #### [facility] [address] [place] [address] Dr. Ab Sloan IG % 0.2 % Normal 0.0-0.5 [facility] Comment on above: Performed By: #### C BC #### [facility] [address] [place] [address] Dr. Ab Sloan LYMPH # 1.9 103/ul Normal 1.2-3.8 [facility] Comment on above: Performed By: #### C BC #### [facility] [address] [place] [address] Dr. Ab Sloan Lymphocytes/100 WBC (Bld) 31.2 % Normal 20.5-60.0 [facility] Comment on above: Performed By: #### C BC #### [facility] [address] [place] [address] Dr. Ab Sloan MANUAL DIFF REQ NO Normal [facility] Comment on above: Performed By: #### C BC #### [facility] [address] [place] [address] Dr. Ab Sloan MCH (RBC) [Entitic mass] 31.0 pg Normal 26.7-34.0 [facility] Comment on above: Performed By: #### C BC #### [facility] [address] [place] [address] Dr. Ab Sloan MCHC (RBC) [Mass/Vol] 34.3 g/dL Normal 29.9-35.2 [facility] Comment on above: Performed By: #### C BC #### [facility] [address] [place] [address] Dr. Ab Sloan MCV (RBC) [Entitic vol] 90.5 fL Normal 81.0-99.0 [facility] Comment on above: Performed By: #### C BC #### [facility] [address] [place] [address] Dr. Ab Sloan MONO # 0.4 103/ul Normal 0.3-0.8 [facility] Comment on above: Performed By: #### C BC #### [facility] [address] [place] [address] Dr. Ab Sloan Monocytes/100 WBC (Bld) 6.2 % Normal 1.7-12.0 [facility] Comment on above: Performed By: #### C BC #### [facility] [address] [place] [address] Dr. Ab Sloan NEUT # 3.7 103/ul Normal 1.4-6.5 The [facility] Comment on above: Performed By: #### C BC #### [facility] [address] [place] [address] Dr. Ab Sloan Neutrophils/100 WBC (Bld) 61.1 % Normal 43.0-75.0 [facility] Comment on above: Performed By: #### C BC #### [facility] [address] [address] [address] Ab Sloan Platelet mean volume (Bld) [Entitic vol] 12.0 fL Normal 9.5-13.5 The [facility] Comment on above: Performed By: #### C BC #### [facility] [address] [address] [address] Ab Sloan PLT 198 103/ul Normal 150-450 [facility] Comment on above: Performed By: #### C BC #### [facility] [address] [address] [address] Ab Sloan RBC 4.22 106/ul Normal 4.20-5.40 [facility] Comment on above: Performed By: #### C BC #### [facility] [address] [address] [address] Ab Sloan WBC 6.1 103/ul Normal 4.0-11.0 [facility] [place] Comment on above: Performed By: #### C BC #### [facility] [address] [address] [address] Ab Sloan CRPon 11-30-2021 CRP [Mass/Vol] mg/L Normal <=1.0 [facility] Comment on above: Performed By: #### B MP, CRP #### [facility] [address] [address] [address] Ab Sloan DRUG SCREEN RAPID (URINE)on 11-30-2021 AMP Negative Normal NEGATIVE The [facility] Comment on above: Performed By: #### D TULIO ERUR ####[facility] [address] [id number] Sloan BAR Negative Normal NEGATIVE The [facility] Comment on above: Performed By: #### D TULIO ERUR ####[facility] [address] [phone] Sloan BUP Negative Normal NEGATIVE The [facility] Comment on above: Performed By: #### D TULIO, ERUR ####[facility] [address] [phone] Sloan BZO Negative Normal NEGATIVE The [facility] Comment on above: Performed By: #### Rosi ANTUNEZ, ERUR ####[facility] [address] [place], [place] [address]Dr. Ab Sloan LESTER Negative Normal NEGATIVE The [facility] Comment on above: Performed By: #### D TULIO, ERUR ####[facility] [address] [place], [place] [address]Dr. Ab Sloan CUT-OFFS SEE BELOW Normal The [facility] Comment on above: Result Comment: AMP (Amphetamine): 500ng/mL, BAR (Barbituates): 200 ng/mL, BZO (Benzodiazepines): 150 ng/mL, BUP (Buprenorphine): 10 ng/mL, LESTER (Cocaine): 150 ng/mL, mAMP (Methamphetamine): 500 ng/mL, MTD (Methadone): 200 ng/mL, OPI (Opiates): 100 ng/mL, OXY (Oxycodone): 100 ng/mL, PCP (Phencyclidine): 25 ng/mL, PPX (Propoxyphene): 300 ng/mL, THC (Cannabinoids): 50 ng/mL, TCA (Trycyclic Antidepressants): 300 ng/mL Performed By: #### Rosi ANTUNEZ, ERUR ####[facility] [address] [place], [place] [address]Dr. Ab Sloan DRUG CUT HEADER DRUG CLASS TEST SYSTEM CUT-OFF CONCENTRATIONS ARE FOLLOWS: Normal The [facility] Comment on above: Performed By: #### Rosi ANTUNEZ, ERUR ####[facility] [address] [place], [place] [address]Dr. Ab Sloan mAMP Negative Normal NEGATIVE The [facility] Comment on above: Performed By: #### Rosi ANTUNEZ, ERUR ####[facility] [address] [place], [place] [address]Dr. Ab Sloan MTD Negative Normal NEGATIVE The [facility] Comment on above: Performed By: #### Rosi ANTUNEZ, ERUR ####[facility] [address] [place], [place] [address]Dr. Ab Sloan OPI Negative Normal NEGATIVE The [facility] Comment on above: Performed By: #### D RUGRPD, ERUR ####[facility] [address] [address]Dr. Yilan Sloan OXY Negative Normal NEGATIVE The [facility] Comment on above: Performed By: #### D TULIO, ERUR ####[facility] [address] [address]Dr. Ab Sloan PCP Negative Normal NEGATIVE The [facility] Comment on above: Performed By: #### D TULIO, ERUR ####[facility] [address] [address]Dr. Ab Luther PPX Negative Normal NEGATIVE The [facility] Comment on above: Performed By: #### D TULIO, ERUR ####[facility] [address] [address]Dr. Ab Sloan TCA Negative Normal NEGATIVE The [facility] Comment on above: Performed By: #### Rosi ANTUNEZ, ERUR ####[facility] [address] [address]Dr. Ab Sloan THC Negative Normal NEGATIVE [facility] [place] Comment on above: Performed By: #### Rosi ANTUNEZ, ERUR ####[facility] [address] [place], [place] [address]Dr. Ab Sloan ER URINE PROFILEon 2 Bilirubin Ql (U) Negative Normal NEGATIVE The [facility] Comment on above: Performed By: #### Rosi ANTUNEZ, ERUR ####[facility] [address] [address]Dr. Ab Sloan Clarity (U) CLEAR Normal CLEAR The [facility] Comment on above: Performed By: #### D TULIO, ERUR ####[facility] [address] [address]Dr. Ab Sloan Color (U) LT. YELLOW Normal YELLOW The [facility] Comment on above: Performed By: #### D TULIO, ERUR ####[facility] [address] [address]Dr. Ab Sloan ERUAHD A micrscopic examination will be performed if indicated. Normal The [facility] Comment on above: Performed By: #### Rosi ANTUNEZ, ERUR ####[facility] [address] [address]Dr. Ab Sloan Glucose Ql (U) Negative Normal NEGATIVE The [facility] Comment on above: Performed By: #### Rosi ANTUNEZ, ERUR ####[facility] [address] [address]Dr. Ab Sloan Hemoglobin Ql (U) Negative Normal NEGATIVE The [facility] Comment on above: Performed By: #### Rosi ANTUNEZ, ERUR ####[facility] [address] [address]Dr. Ab Sloan Ketones Ql (U) Negative Normal NEGATIVE [facility] Comment on above: Performed By: #### Rosi ANTUNEZ, ERUR ####[facility] [address] [address]Dr. Ab Sloan LEUKOCYTES Negative Normal NEGATIVE The [facility] Comment on above: Performed By: #### Rosi ANTUNEZ ERUR ####[facility] [address] [place], [place] [address]Dr. Ab Sloan Nitrite Ql (U) Negative Normal NEGATIVE [facility] Comment on above: Performed By: #### Rosi ANTUNEZ ERUR ####[facility] [address] [place], [place] [address]Dr. Ab Sloan pH (U) 6.0 [pH] Normal 5-9 The [facility] Comment on above: Performed By: #### Rosi ANTUNEZ ERUR ####[facility] [address] [place], [place] [address]Dr. Ab Sloan SPEC GRAVITY 1.020 Normal 1.005-<=1.025 The [facility] Comment on above: Performed By: #### Rosi ANTUNEZ ERUR ####[facility] [address] [place], [place] [address]Dr. Ab Sloan UA PROTEIN Negative Normal NEGATIVE/ TRACE The [facility] Comment on above: Performed By: #### Rosi ANTUNEZ ERUR ####[facility] [address] [place], [place] [id number] Sloan UR MICRO IND NOT INDICATED Normal The [facility] Comment on above: Performed By: #### D TULIO, ERUR ####[facility] [address] [phone] Sloan Urobilinogen Qn (U) 0.2 {Lamonte'U}/dL Normal 0.2 - 1. 0 The [facility] Comment on above: Performed By: #### D TULIO, ERUR ####[facility] [address] [phone] Sloan PROF CHEM 8 (BAS METB)on Anion gap [Moles/Vol] 11.6 mmol/L Normal The [facility] Comment on above: Performed By: #### B MP, CRP #### [facility] [address] [address] [address] Ab Sloan Calcium [Mass/Vol] 8.8 mg/dL Normal 8.5-10.1 [facility] Comment on above: Performed By: #### B MP, CRP #### [facility] [address] [address] [address] Ab Sloan Chloride [Moles/Vol] 104 mmol/L Normal 98-107 The [facility] Comment on above: Performed By: #### B MP, CRP #### [facility] [address] [address] [address] Ab Sloan CO2 [Moles/Vol] 26.9 mmol/L Normal 21.0-32.0 The [facility] Comment on above: Performed By: #### B MP, CRP #### [facility] [address] [address] [address] Ab Sloan Creatinine [Mass/Vol] 0.91 mg/dL Normal 0.55-1.02 [facility] Comment on above: Performed By: #### B MP, CRP #### [facility] [address] [address] [address] Ab Sloan EGFR-AF ZIMBABWEAN >60 Normal >=60 [facility] Comment on above: Performed By: #### B MP, CRP #### [facility] [address] [place] [address] Dr. Ab Sloan EGFR-NON AF ZIMBABWEAN >60 Normal >=60 [facility] Comment on above: Performed By: #### B MP, CRP #### [facility] [address] [address] [address] Ab Sloan Glucose [Mass/Vol] 105 mg/dL Normal 74-106 [facility] Comment on above: Performed By: #### B MP, CRP #### [facility] [address] [address] [address] Ab Sloan Potassium [Moles/Vol] 3.5 mmol/L Normal 3.5-5.1 [facility] [place] Comment on above: Performed By: #### B MP, CRP #### [facility] [address] [place] [address] Dr. Ab Sloan Sodium [Moles/Vol] 139 mmol/L Normal 136-145 [facility] Comment on above: Performed By: #### B MP, CRP #### [facility] [address] [place] [address] Dr. Ab Sloan Urea nitrogen [Mass/Vol] 14.0 mg/dL Normal 7.0-18.0 [facility] [place] Comment on above: Performed By: #### B MP, CRP #### [facility] [address] [place] [address] Dr. Ab Sloan Urea nitrogen/Creatinine [Mass ratio] 15.4 mg/mg Normal [facility] [place] Comment on above: Performed By: #### B MP, CRP #### [facility] [address] [place] [address] Dr. Ab Sloan CBC AUTO DIFFon 06-14-2021 BASO # 0.0 103/ul Normal 0.0-0.1 [facility] Comment on above: Performed By: #### C BC #### [facility] [address] [place] [address] Dr. Ab Sloan Basophils/100 WBC (Bld) 0.6 % Normal 0.2-2.0 [facility] Comment on above: Performed By: #### C BC #### [facility] [address] [place] [address] Dr. Ab Sloan EO # 0.2 103/ul Normal 0.0-0.7 [facility] Comment on above: Performed By: #### C BC #### [facility] [address] [place] [address] Dr. Ab Sloan Eosinophils/100 WBC (Bld) 3.1 % Normal 0.9-7.0 [facility] Comment on above: Performed By: #### C BC #### [facility] [address] [place] [address] Dr. Ab Sloan Erythrocyte distribution width (RBC) [Ratio] 12.7 % Normal 11.0-15.0 [facility] [place] Comment on above: Performed By: #### C BC #### [facility] [address] [place] [address] Dr. Ab Sloan Hematocrit (Bld) [Volume fraction] 36.9 % Normal 36.0-48.0 [facility] Comment on above: Performed By: #### C BC #### [facility] [address] [place] [address] Dr. Ab Sloan Hemoglobin (Bld) [Mass/Vol] 12.1 g/dL Normal 12.0-16.0 [facility] [place] Comment on above: Performed By: #### C BC #### [facility] [address] [place] [address] Dr. Ab Sloan IG # 0.01 10e3/ul Normal 0.00-0.03 [facility] Comment on above: Performed By: #### C BC #### [facility] [address] [place] [address] Dr. Ab Sloan IG % 0.2 % Normal 0.0-0.5 [facility] Comment on above: Performed By: #### C BC #### [facility] [address] [place] [address] Dr. Ab Sloan LYMPH # 2.1 103/ul Normal 1.2-3.8 [facility] Comment on above: Performed By: #### C BC #### [facility] [address] [place] [address] Dr. Ab Sloan Lymphocytes/100 WBC (Bld) 40.2 % Normal 20.5-60.0 [facility] Comment on above: Performed By: #### C BC #### [facility] [address] [place] [address] Dr. Ab Sloan MANUAL DIFF REQ NO Normal [facility] Comment on above: Performed By: #### C BC #### [facility] [address] [place] [address] Dr. Ab Sloan MCH (RBC) [Entitic mass] 30.0 pg Normal 26.7-34.0 [facility] Comment on above: Performed By: #### C BC #### [facility] [address] [place] [address] Dr. Ab Sloan MCHC (RBC) [Mass/Vol] 32.8 g/dL Normal 29.9-35.2 [facility] Comment on above: Performed By: #### C BC #### [facility] [address] [place] [address] Dr. Ab Sloan MCV (RBC) [Entitic vol] 91.6 fL Normal 81.0-99.0 [facility] [place] Comment on above: Performed By: #### C BC #### [facility] [address] [place] [address] Dr. Ab Sloan MONO # 0.4 103/ul Normal 0.3-0.8 [facility] Comment on above: Performed By: #### C BC #### [facility] [address] [place] [address] Dr. Ab Sloan Monocytes/100 WBC (Bld) 7.5 % Normal 1.7-12.0 [facility] Comment on above: Performed By: #### C BC #### [facility] [address] [place] [address] Dr. bA Sloan NEUT # 2.5 103/ul Normal 1.4-6.5 [facility] Comment on above: Performed By: #### C BC #### [facility] [address] [address] [address] Ab Sloan Neutrophils/100 WBC (Bld) 48.4 % Normal 43.0-75.0 [facility] Comment on above: Performed By: #### C BC #### [facility] [address] [place] [address] Dr. Ab Sloan Platelet mean volume (Bld) [Entitic vol] 11.1 fL Normal 9.5-13.5 [facility] [place] Comment on above: Performed By: #### C BC #### [facility] [address] [address] [address] Ab Sloan PLT 186 103/ul Normal 150-450 [facility] [place] Comment on above: Performed By: #### C BC #### [facility] [address] [place] [address] Dr. Ab Sloan RBC 4.03 106/ul Critically low 4.20-5.40 [facility] Comment on above: Performed By: #### C BC #### [facility] [address] [place] [address] Dr. Ab Sloan WBC 5.2 103/ul Normal 4.0-11.0 [facility] [place] Comment on above: Performed By: #### C BC #### [facility] [address] [place] [address] ABD/PELVIS WO CONon [...] TIBURCIO OROZCO Date: 2021-06-14 10:26 Normal The [facility] ER URINE PROFILEon 2 Bilirubin Ql (U) Negative Normal NEGATIVE [facility] Comment on above: Performed By: #### E RUR #### [facility] [address] [place] [address] Dr. Ab Sloan Clarity (U) CLEAR Normal CLEAR The [facility] Comment on above: Performed By: #### E RUR #### [facility] [address] [place] [address] Dr. Ab Sloan Color (U) YELLOW Normal YELLOW [facility] Comment on above: Performed By: #### E RUR #### [facility] [address] [place] [address] Dr. Ab MARCUM A micrscopic examination will be performed if indicated. Normal The [facility] Comment on above: Performed By: #### E RUR #### [facility] [address] [place] [address] Dr. Ab Sloan Glucose Ql (U) Negative Normal NEGATIVE [facility] Comment on above: Performed By: #### E RUR #### [facility] [address] [place] [address] Dr. Ab Sloan Hemoglobin Ql (U) Negative Normal NEGATIVE [facility] Comment on above: Performed By: #### E RUR #### [facility] [address] [place] [address] Dr. Ab Sloan Ketones Ql (U) Negative Normal NEGATIVE [facility] Comment on above: Performed By: #### E RUR #### [facility] [address] [place] [address] Dr. Ab Sloan LEUKOCYTES Negative Normal NEGATIVE [facility] Comment on above: Performed By: #### E RUR #### [facility] [address] [place] [address] Dr. Ab Sloan Nitrite Ql (U) Negative Normal NEGATIVE [facility] Comment on above: Performed By: #### E RUR #### [facility] [address] [place] [address] Dr. Ab Sloan pH (U) 6.0 [pH] Normal 5-9 [facility] [place] Comment on above: Performed By: #### E RUR #### [facility] [address] [place] [address] Dr. Ab Sloan SPEC GRAVITY >=1.030 Abnormal 1.005-<=1.025 [facility] Comment on above: Performed By: #### E RUR #### [facility] [address] [place] [address] Dr. Ab Sloan UA PROTEIN Negative Normal NEGATIVE/ TRACE The [facility] Comment on above: Performed By: #### E RUR #### [facility] [address] [place] [address] Dr. Ab Sloan UR MICRO IND NOT INDICATED Normal [facility] Comment on above: Performed By: #### E RUR #### [facility] [address] [place] [address] Dr. Ab Sloan Urobilinogen Qn (U) 0.2 {Lamonte'U}/dL Normal 0.2 - 1. 0 [facility] [place] Comment on above: Performed By: #### E RUR #### [facility] [address] [place] [address] Dr. Ab Sloan PROF CHEM 8 (BAS METB)on Anion gap [Moles/Vol] 10.3 mmol/L Normal [facility] [place] Comment on above: Performed By: #### B MP #### [facility] [address] [place] [address] Dr. Ab Sloan Calcium [Mass/Vol] 8.8 mg/dL Normal 8.4-10.2 [facility] Comment on above: Performed By: #### B MP #### [facility] [address] [place] [address] Dr. Ab Sloan Chloride [Moles/Vol] 104 mmol/L Normal 98-107 [facility] Comment on above: Performed By: #### B MP #### [facility] [address] [address] [address] Ab Sloan CO2 [Moles/Vol] 28.8 mmol/L Normal 22.0-30.0 [facility] Comment on above: Performed By: #### B MP #### [facility] [address] [place] [address] Dr. Ab Sloan Creatinine [Mass/Vol] 0.79 mg/dL Normal 0.52-1.04 [facility] [place] Comment on above: Performed By: #### B MP #### [facility] [address] [place] [address] Dr. Ab Sloan EGFR-AF ZIMBABWEAN >60 Normal >=60 [facility] Comment on above: Performed By: #### B MP #### [facility] [address] [place] [address] Dr. Ab Sloan EGFR-NON AF ZIMBABWEAN >60 Normal >=60 [facility] Comment on above: Performed By: #### B MP #### [facility] [address] [place] [address] Dr. Ab Sloan Glucose [Mass/Vol] 93 mg/dL Normal 74-106 [facility] Comment on above: Performed By: #### B MP #### [facility] [address] [place] [address] Dr. Ab Sloan Potassium [Moles/Vol] 4.1 mmol/L Normal 3.4-5.0 [facility] Comment on above: Performed By: #### B MP #### [facility] [address] [place] [address] Dr. Ab Sloan Sodium [Moles/Vol] 139 mmol/L Normal 137-145 [facility] Comment on above: Performed By: #### B MP #### [facility] [address] [address] [address] Ab Sloan Urea nitrogen [Mass/Vol] 13.0 mg/dL Normal 7.0-17.0 [facility] Comment on above: Performed By: #### B MP #### [facility] [address] [address] [address] Ab Sloan Urea nitrogen/Creatinine [Mass ratio] 16.5 mg/mg Normal [facility] Comment on above: Performed By: #### B MP #### [facility] [address] [address] [address] Ab Sloan XR KUB 1 VIEWon [...] by: REAL RIDER Date: 2021-06-14 09:08 Normal [facility] Coding Queryon 02-25-2021 SARS-CoV-2 (COVID-19) RNA TERESE+probe Ql (Unsp spec) Can you please review the patient's COVID results and revise the diagnosis if you feel appropriate? Thanks. [Electronically Signed on: 02/27/2021 18:06 EDT] SHOLA HONG [Verified on: 02/27/2021 18:06 EDT] SHOLA HONG [Transcribed on: 02/25/2021 13:31 EDT] [facility] Coding Summaryon 02-25-2021 Coding Summary HTMLBase 64 OpxasjcyEDd7wYa+PGhlY WQ+KQ0WNPQbZ35wkBUfzR 5GR0mOUV2QAYRAEBYYID5 TCN4ioSB2DUnfB4YultOd ZgdxsOGxLL64WNa6VDD1d QmzDZgyyO4xvSYhS2x3Xk NkHL52pH62UBdpBHCwBzN 3LjZpbjsgbWFy W5lxBtVjaQCrSrp+PHRhY mxlIHdpZHRoPScxMDAlJy LlyFplDB1zZz2jYQPfCIZ vbGxhcHNlOiBj s3omNVBnFGoyZN8ysPbdL 0XkhQT2UCMoe5m9Kd15zF I+BIFbZYS2hLpsDDqpv43 9PbWvp0ghRAR5 wKGiHBpxARD0E22ev7N7U GHzZDFeZWQ8jJM9mQ0ghE gslfkyE2HfvDHwEvB2YYP 9cKHkvU9nuCie qmjdpK1pEke+Y52AEO7GK SFCNC7APux8Z2QuTprtkK I+LJ66PFXdIC29zZCucGW qx7vbvQj5QsUr HQGkQTN8kCgwMTodu2HhU RBoS09quPNgb4B0BRXjwV twrORlNvUrsLL5pR5uZBc kyuzaq1opcwga Vjxxb3mrqf93tY94J91tX NthAKJqSHB3JAWcZGHppF tyek0rwQ9bZp0+BGpee1l xv3vwvGq4NoQr JFKpaiOarIqqGUS8l8RwI k64R9NjyJqxx3BgDxk1lr 42oIJui7T7fHJ2ULtkUFW bvQ1vOEzkEkJ5 TMBdIwEsxY00rXJmNRrhV m4asBcsaSfvXU3zTGOchm ljHZFutD7rUJHzgQSjxIu rIA3zQVRhzhhi n324NwEjPMI9IJRvcLHnO 4AgiA8tAfSsDBYjVBNmH3 BunYLmKDdsM873BWlnTyV 2TUIpstScJ1Nz MUGbtYhrArN5g9I2Yy6Mw 4EexcmsJQR5RLvgSWFeSk ZmVpRhLuF9F9AgPwd7NXQ eiEzmRL4hY8Ly GCWanbqlefdxlJO5HPRqK THiuG76vGZmBOyhMj7mo9 M5g331HMDgBLXucB89Qv7 udDogMTBwdCBU sJ6qeeptt4djeqkjPaQwU QGrSOd1HJw7NJExhBzrAa WvGUM8AjL1FMU7kKPjnO0 wsSpzqshauP6q Oyc+Q14paG6hWSS7GVV7t pjpORCazxPsEG95UT27O6 RyPjwvdGFibGU+PGRpdiB sbAhiAS4lTqRe b6cvx8ClQRibT1SoYCOuA VwvEgx7APNrXJH7aJN2pC 9yVPDmJPekg7P3gYR3H0Z tdiVssl0en7ix YZJaSFnnJ36kjPTlw7X7D HMoqAL8QKKxiGgrLaIbrZ 93Oyc+RYJbqXgji4EuYrj ip7hxf4jmlLu0 WmHvODCdnbNhfSysZVA3w 8FlDb34T86bKEwzNHVrVL BcMYBwAVPomXcenu4prS3 wIi8+PGNvbCB3 dFQ6aZ2mBHCjVwC7FPniJ 003TiOumKCgJswvp7vrl0 dkzJl9FfNbBCVudwKxoFb tLCB6a2WhUv95 Y71oDRblRNPyUCZtYLIkM AUirZekdv0tyZ2oBw7+PC 8zv0gyag75iL85wAZ+PHR zOGL0uEaeVSaw KQOsbS2nWXsoIsB5CSOaG aPisB61qPHqLEtzYf8koI vhmCbhFA7nPPVlnstaf70 1TmMye1qdPPXo cJPdTZpdVUX3Z43nw4O4J PCkAKTePZM6aCE7sE8zpL lnbjogbGVmdDsgdmVydGl xCCvkUOupZ024 IHRvcDsnPlBhdGllbnQgT dHoXGs1U5DnTsv9JWEsbQ rsNR4lwYNbWTaqOh7ysGo gbImvGA6aDQQx jqigp994CtRnr6uwKYKxm PVkAWidVEQ3E31zj2W6GX AzZSItMYO5mXQ7oD1uuCc nbjogbGVmdDsg vcVjbFwvDHntMNsdY167T HRvcDsnPkJpcnRoIERhdG Z7FZ68QJ62cQRsy1R8vEW 5F4EzMJBrnqcu pbnuaKO1VTQyQARbxJ10W a4xqXdxXd2iGEKnGQG2UB BryCNtK6BdfW2fNrHaWQP xIYCrL4QubAYn DTqxE464NLdjNnP6SIPnm zMfX4PmFWJcjTijJxN9v0 L4Mk3AN7F6OY85GV00xQF se0L4gGG4D7Ju FJCiaagbvnvchKF6FFCjV CVvgQ87Ho6ihMxaXb3zIC VxKVJ2GMKplTMnP9JysF4 yOiAjMDAwMDAw D5SdaIHmMScwT361BExaG sR4EDQcepAmI5QsRLEwsI wrDeJ6r4F5Lq6OVJo8AR8 5ZN78uQHaq0E2 jYZ2R4ApPYMgnnmgjhlkg RC5AFOrKVCzsS48Af7skZ cgBd9mJUDiDQV9AMMgpAY rQ9RkfY8bHpSl DPNeFJEkC0XnwZWkHDlgC 955IDylMtR1WOYoonFrS5 FeXPNjkAsbYuW1i3S6Pm7 RIHHtQJ56RFM1 zEE6EZ78YD78C0KeAgkjc GFibGU+PHRhYmxlIHdpZH RoPScxMDAlJyBzdHlsZT0 sOb4lNUYsDMWa hOuylQIfWkCqv8csOGStS FukKZ8pkMkuM1EdjGT9HE Zfz9n5Kx03E49sF3JoeTK +KNQatLG3rOU7 zH1rJuAiWoV3ATsdY317Z eQmhDMeVrcwb8cbi6ilpB m7DcF6HYGgfxPzbDwuEZM 3o6MgFp58F86i IHdpZHRoPSIxNSUiIHZhb Sylca5wyL6xAu1+PGNvbC Q0iUN6sM2mRxMcUeQ8UNi eH371RiRxmSUr Ahnfb6zls3cgqUf0QrQlQ UThsgAamPvzGYI0e3CcBw 28V0QzkOhnt5HiYwd5xt6 4fPPuc4T3kKL2 U1TyWXKrkqrbuXIlfQdjH M6lVBLwkjfrSVBirS1dSE ZdU2s8KjJmDdI6JQnrF7Q hooQ7VQOxyZKz PEwzAHS9O36fs9K0DHUdF ZGsKOQ9dEJ2hB1vvEccln ogbGVmdDsgdmVydGljYWw pDLaiH977ONKu jHxlTNYfkK8gJBUkoQNye HqzMB3wBJLuwcmkFinGFT wsIFNIQVdOVEUgTUFSSUU 4I2SxUyq6SUEu qKigSC0czHDhSTcgMw6cw MlupJzsGS6nLSKnsinsNT XllE8tGJLxtJFwjTogYN6 xMIWigqwha315 CvCgZYA8LQEjiCXwD9Eig C0gBnCiZWUhWNAbJ3ZvlR ZwFEjiQ578VUbiCiZ4OIC wqjWqU8ZuDXZa sDjhIvJ5e1M8Ci3rHR1jC h1tSTu1KM11NL34sEDgu6 P4nXY3S9ZgIRMzzmcdsty ghRS3BRTyOIDt iK20nDMdXJnwAr4bw9O8j 567XKPqCAIaoG54Ar2ghK vvGDZmdWSKhL9xevqks6q vcjogIzAwMDAw VQc9ALv4OLLqcBaqAjViY TV7KtF6DSC0hQJrfF7lbA zenlxpuJ9fKsv+MzYgWWV qraN5R1ZcCbh7 EJPpjSuoJK8jeDGwWLdnA l3rkZrmzRlxXZ9dPIRnsc xhPOImcM6nIONqfTKoeLp ySQ4rYWZqrhpm n253GuYpPRQ3XLPdgRIiY 6ZalL8yKaWkAZJaVCIeF1 CneMOwGJmfB991GOrpGmX 7EXQjfdTiP5Bh BTZysCetArX3q7W3Vf4RN C3KHJP0X1MsNik4ZRDraC mlPZ5ukCMpAIokRz2sxYd syDpxTG0dZQWp xtxaTWRgwL1qMZBzhHSiq UhyUV1jDHEtphyyp324Rm OcBVE9QIUunPJhM3HlnS4 yOiAjMDAwMDAw I6YfaUHgYJrmT485GAipE cZ3LSBbggNlD1NbEZOenW uiMbA3i7X0Oe2SZDozdRY +OZ89jp38N1Nr TobvRwd3HBFwUHJ1lQW3r Z0sJIUrBFnmr2C8xLP5F8 EpfqBhol3ou0zaLNJnIZj bI66awKSzt0P3 UHDyyGG7IQAksEymKhGpx G93Oyc+HAJnkTsrm7MzGl dfh2xne8ygrNp0VnVoWQS gdmFsaWduPSJ0 y1VlLl78S56lQHgfRSFmR GDdTMUlQYWrqPhyuv6qiP 9wIi8+KMJzmAD7bHW8qY8 vWdOjAjA7BAxu Y011XfAcpAHgLnbdj0ooh 8svbCb2QyHzAZPpowImsM seRLM9l7KrSk78N0NbpQu cm8FtOae8ut19 wFNsn7Q7zHP2U7AwQFXae mmntHDneGzbOO7mMECpwo tqSKTwvX4mSXHeC9y2AqE oLkK6CBniP0Ek yjJ5QRLssSJpCXWqmQVCh P8lizobq7whqpuxSqYtWX RuRFh7PRw2OACxvWfeZiG vPZD0ZjR2EIO5 hLQfdF6deMlfbiupiE2vL yc+XSx1q2sbbQJmYZ7koY F5FY33JJ94dJIch2M9sLA 2J0RaIODbdndi hoeolOP8OJSiXWSnrT39X h2elHspYl8yAYEcKYC8QQ SpoJNdQ3DrwH9gBhIeTJI gKKIlK2BrdVYk PCiyC018BWodVjZ1DPTim nYmT5KfTAXnkWhbNgY6z7 W8Tl6CMK58TB49PA58mWO zm5O2pDN2B3Ng CAHvxouhnikynCC1VSMkY OYlaD58Kh2huXreEb4hHN NdYSN6UDUpsPLfG7ApvJ1 yOiAjMDAwMDAw N5CzuHZwTSfbC814PDfeQ fW9CUBhnhMrK1CsNYBndX rxYfJ1r6C8Gp0TDe06QC7 0ZN91tMAie1S8 wNW1A6PzXPHvfghmptfyv SB6NQWnBNFbeN93Hp0ljG jcGh9zHSFcPTT4NIRhrZU zS0IrhY2nXoBo UCXqPECbB2RzjWDhBQfwI 209LHrsYmP9DFRmsuNuW2 UrRZSndEtzLdN4a9B1Ky2 HYTxethr5T9Fg PjwvdHI+GJ44QHPeLJ77e DSyoMBah6wprVl8FzXqTM DbOEK2uCboDBcwr6ZgIFI xT73svUUxt2L8 IGN (more content not included)... [facility] Coding Summary HTMLBase 64 TubuoshoVVr6rZs+PGhlY WQ+WB3WSDXtK79fuWVoaW 2SH4hINO2ANGIHPUPHXX4 BXC9qzER6CJmdJ9GrulKi UlikdGGfLV59MNx7CZK7n MxgLRofkX8tnDQnZ4a8La NtJT33pA78XBapASUvIuX 3LjZpbjsgbWFy O0vnQuNyfJKtWnm+PHRhY mxlIHdpZHRoPScxMDAlJy MfwXkgYX6tWy0mFPMsITN vbGxhcHNlOiBj h3unONFiCVmpRS5saOmoU 4DflPX6ZHDho0d3Sq46sW I+TUZdTMO6pWwoWEuhy63 7QdTwv6ciIRO4 gSDmHIlwYTB5G82ba5M1C IEbYMYuUDM7cLX4oJ3ynK dssnozW6CamXLyFhO9IWG 9hWOtlO0ocQeq rjcacT0eAov+U14XCH7UZ ZCACS1VRgv1R7WmXvgabQ I+RO62RMSoAH98rXFheXJ dl3wkvHo8YjVd AXLvDTC8pIjeYHadx1DjK RCyB57nyXTek5J9KATdwU wymITwCkYrmHK2gN7uTVc mrnyjg0gipkba Nplvc1mvjw20dM80P57yL DdoVLZlNNE3LDVhBVRxgA bezj0nxX0mVi7+CGcas9j hb8lqfZz7RbKd WDCvoqIriVfzTZF0c4HbD j97J4PpfRdpc4KwCuk8nz 36qGUuu0L6iXI0NMivETJ xsB4zRXbrOqD7 VJTyMfRafB10vBBrVEylC a4uvBdnuDfrSU0iDQLsfh hjQXJpcV1kRBBmuMXatZp qDU5nJGZpgvlz m361PpKbCBE5TROogLKiX 3UluV6hVjZkVPSfJQFeL2 VlpOMdHHioC985AJpqXdD 4VFSwqlYgW7Gz MNGcrIcdXnF5p1U6Ud3Sj 7GnjcaaKIV9WYweLATpMw VnXlHsLbR2G7XqCvx6YCS kaDxmVQ2zA8Ft OQYdensnzzoeaQB5AAOtX DTybQ98vHWjILvnIf6sr5 O3a771RGNrAUDozM83Ec6 udDogMTBwdCBU tB1yvbjmy8mhxrdiSpAlQ TAjVLc3COu2OSVnwUjaZz SqXGV0BjL8PME1wNBszN3 izWkwsvkyeK3v Oyc+H34fhP7wOTH3MJW0x ndfFIAlbtAqDU00CP27G2 RyPjwvdGFibGU+PGRpdiB tpFbdVG2sYdTe l8avd2CzUJynB2BlKLAqT JyhUbe5YTVtGIP4kUU9zI 6bDJZdVZfwu0X5pVW2U8W mmwNayd9dh8tu CPUqUYhkC28pvCHnh0I8W ZWmnFK8TITclLxxMmSrkT 93Oyc+LURreLnip3FxLot df3hdv3nhsMn7 GfFfPCXxkzSsaVjbJBD2e 4VcAr33D60uXAiuBCUpBS JiRUJsQLBgtNpqno2zdX5 wIi8+PGNvbCB3 rQA7aU5vBHEaUqE9LNnqJ 089MgUwiSYqNmxwc8yul9 bzkRe1CjSvYHBmtbAomIh wOHQ4r6JhVc02 V48bAEwmPRCeETLgBUBsQ ZQulCjsxd8haB3fRf3+PC 3sn7flex41zO79pIB+PHR sRPB2lOslOBcx DRWnjY5xBYflGcB9IFUsK yQzaE01wPXtGFasSi0tbO mlkZrkLU8mDWFtfenzs19 2GuUfc2ikZJEp bJQoXAkhPLM6R17em9U5V OEjVEIlCZN3fMX6rE6mmL lnbjogbGVmdDsgdmVydGl rAGrpRIlwS524 IHRvcDsnPlBhdGllbnQgT yUhVMf8E8RnUnu7GICzlY rrHQ7fmXDlZKfaPj8efQn bqPrcUU5bZDEc bkktg187QzWoh4leCRSzi UVmKUqwJIH7Y58wg2M1IC IqUTQxNMA8jIO2lL9keSa nbjogbGVmdDsg ztZfhKnhMGjxMHdbH245X HRvcDsnPkJpcnRoIERhdG Y9GV38CB05pBJbu1C4xEV 6S3BfHIEwmpdk stdimUT8CHHyVBGlzK78K x7yyZvlCn7vEXRnDAX0SW VwzWTuC5JxoJ1qHfGeYYY rBNAeH9EkrPYb WMyoZ462ZXbvBkM8FBAjz eHcK6FdLKNkgTjdAwD4h4 U8Rg9RQ6I3FC81ER45rYI ku7S5dIW8K2Ep HJTfneqgiumrsFE6RMVbB EMuiW69Gt7tcUkgOb8hKS VeLVT4PYXsbGOnC1SreO0 yOiAjMDAwMDAw U4NbiPMqSWmpK017UDhgA mL5WPYznqZjU2BtJRSgjQ beKjE6s2L9Lj4HCOx7AD4 3TA98bALyw2Q5 hRC9M1LpNVXiqesuofyzk IG2LBWgUCXmuQ61Pp6wmW srLz0xWCBbLNE4ATZbqXD qS0WcfK3nHpAr IDEhYBUyV9RbdBExPQgqA 787WFegLuH5WVAwvkHbQ8 NfUDLqrZbmVcR6o4F7Nx4 TPPCaEP66UVI2 lOL5MX10KI59N1CuTdnuo GFibGU+PHRhYmxlIHdpZH RoPScxMDAlJyBzdHlsZT0 fJp8tKHWuXMGt mZhssLTvFqDcx5jjIFIsS EdsWV4qvVwpU9FknUI0GF Ent3t3Dt69P60kS2VmdRL +QQMlaHW5rKI2 fK1xLwUyGcM6HDraD189I iWsaGMmEypuz9pjc8guuV g5QlZ7EFUvioEssAkhBQT 5o4SuRi87W92m IHdpZHRoPSIxNSUiIHZhb Ufwql6hmE6gTx1+PGNvbC J6dUK5jA5ePuAyLpN8LAu eN124XhDodXSq Pzcju1saw6rozXo7NqGtT REbvaQzmYceEYZ5j2YxTm 68D1VvxIbzc9RaWuz1ib2 1tFBdw5G4wVI0 K8VaORXvlkhkrDXatEnfB G6hWVHdfmzpSKVssD3sPT ZmC7y0NgMeIbJ9NZddB1Q cncP5EOAyrAXx GJdjDZC8D11sh5O7XYPmX PQkBLY9jCK1sF8ueXknsc ogbGVmdDsgdmVydGljYWw mLMqcF290XLPf oXtcBTCwkH5vWVIgwNPwh RezOS4vQSDoixzzKspLCK wsIFNIQVdOVEUgTUFSSUU 6S4CcNbs4LWIj dSqiUH0ywEIoGYebZy1jt NnxaPsfGD6sELUmcfzmRC JenS5mFMMvjFUnuQrvBA4 wCNKhyjeue713 XaMgUQO8NLCfxVHuJ0Gyj F5sSmZqWTFzCRXbD7RkzL FzKDkxO151TFpgJsP7GHK hylUnX7EmAIDg zAlwGyW3k9L0Hb1iJE7jU s0zUWw9EK73IZ38pJPmx2 N3vKD6X2GdONPfgkcjipc ceGM6WUGtZPPm nG85uRWqFJvrVv3tr8Z2y 656PYKnTTRvlU69Ip6blU lzFPWhxKZFcA3oglhms6c vcjogIzAwMDAw QRu9NSs8KIKdrMjoUdMwD RJ3JuF3MJT1gPAxeO1qdD mdudscrW9nVim+MzYgWWV cdhI5Q5UeSvo8 XJKarGhlGC9ipBZkYYlyH o8pkXgimFwdPB5fFOJbyn kxWWYilD6pCGQwaNMjkPn cKF8fAYHubvjw e585SrUzEYX6DRAhaESjG 9EiyB2nWpEcLRQkLCHeA4 VepNUoWPazV319QPpvRsW 1ZXKylcTuJ1Tg LSNjpYjfAhX2d2R4Ul6LZ A9EVLN3N6SeJwv0OKLffR ukPK9ugXCtLPjiZe5hpWe dbCtgFT7qHLRb mccqEPVdrM7wLQQmhAYtq EovHB2qJRRhqxgnx277Td VzEBT2LWYqxFQrI6FrxQ8 yOiAjMDAwMDAw E8VklRSgXKqkU659XFdzW sC9LRZupaKcN2HlCQUfrM goNfA7x8F7Qa4FiEUgK0V sM4q5W7LwYxmm dHI+GI42GPMjQR38qDZeg VGnk7cauMg8OsAuPZZpDT U9vJgiCCftp4RrMEPxK45 qwNWkw8J9UCVm wFvzhLFmMkUpjGJ5zW4rA Ceplllck7mfgnhcEvndp2 esrk33xC32C95kAUrgNTY oPSIzMCUiIHZh lUscsg9kdH6aKe3+PGNvb ZY2pFJ1jL4mNdQsReZ9LA ebE653HfMntXWbMxvub6i qe7wxoLr8UrZu VMBzrtQvtEwaTYU3j2EdH c38C55wESgjPSNsBQBfIU WhCVPtfNrfcl6yvZ8zCq0 +EL9hq4ivoi29 cW59zHG+SOPjMCY0fAgzT PfdMFBnwA5fSIfbGuU8PK YoEgHxuH55zFOeLDqkEx5 ftWokvRfhTZ2f NNDahsinr927VtPxw9piY VEntKGtOHzcTSP4L52vk4 C1JQUpTOVaZHU0pWY2yQ5 hbGlnbjogbGVm dDsgdmVydGljYWwtYWxpZ 108NYLaaVdmDmNyaDQdA6 hmtmFCLK4mFqfscQM+PHR dUCI7nPdrURfp VLTcvU6pJLTbQ3j1KpGdB aX5WFxhO3WzelU7EQPugE PbLLKdjJKKiL6mryijs4p vcjogIzAwMDAw ODr0ZIt2BGHjbDcrReUiS QT3HhU4PTB1cNJfbJ9wmO kfmwxvtO7nXmi+RklOOjw vdGQ+PHRkIHN0 yOqcAAqnXOVjlL3pBARdD 0i1AgPrCxV7MItkV8Rbjf S8VYWtrZHcKVDvnVWArS0 buzxgy3mfzxhd EwZaZYDbAMl0PAd7XIWbc ZyvSnAwPNU0BoW7EHU7fS EjmA9laNbugacjcL1kDjn +TVJOOjwvdGQ+ CUEsZBJ0kAanNKqbXGByh U6yZDNrL1e0UjCsZaX6YH avO2ZralY7WSZmoEPwFDX zzCXRfJ9pawct w2bmpavcFhHoHXHpZQx9D Jw6IPZxpPjnJnSmYER2Ia T2YOL0xFHkaZ2taFyotpb lgK3sRpc+UGF5 GQA5LA71SA30X0RtHoiqr GFibGU+PHRhYmxlIHdpZH RoPScxMDAlJyBzdHlsZT0 gVj8bMPWlMBOe bGx (more content not included)... [facility] Coding Summary HTMLBase 64 UxvjoahsHNu6dNs+PGhlY WQ+BJ2FTHTyH70heJHieW 1WZ4cQCF7DXIKEDCZLKV4 SLE1ueNA7TOarT2WrwtNo EgqulDQoXE80RQg3JHM1c OcnEXbdjJ9jsGLkU4e5Hw XlYO22tE55ZVmaCUXzLoA 3LjZpbjsgbWFy E3eiQeMnoJShKlo+PHRhY mxlIHdpZHRoPScxMDAlJy DlsUksHK1hZj8pUJMyNAK vbGxhcHNlOiBj l0txLJNpLAilMJ8cdOteV 1UotWY8MARcc3p5Ql09uT I+QTXwPEG6fIoeFXskj10 8PhFfh5cmHUO0 eTSpPXrxSJK8E82en7Q5M ZOkQFVpEDZ7aBM9xF3saL zmqzcdZ9OidDBkTwB0CGJ 8aAFuoO9xwFhw evahqP3kEfs+X65KKS4EG GSVOH9IZhx6S1QiUrpueH I+UI12LSZiEA20cZTevCD qv6nskRm6RiGe MWLyWNI4zUqxRJjxs6IpX CDdO25leEWtp8R4NFZcuO aibWBmRmJqvNX6uZ4pEBj hsdpqd7rfqhka Xxjkt6ijjh82dY55S49kX ApnVKYfWAH7EEJfPIDjyV nows9lkC1gYf7+HWcvq9h sa7tarGx0BpNo WLZhloTmeRhdMEH6d3EfH y77I3DkxYrhx0IfGet5vu 53gEYai0O2tDW9EYucLJW agY5sDVacLyF7 HPExGsCkuY26fJYtJFigM p1vpFjohKneHD2zNOFzhk tmZSEnaN2oBROclIWsbNz jRL2oRIEueaco h216McHqVXK4DVJuqLSaJ 2LuhA9pXpIkNMHbSBJmX0 QfwWTpWXkpQ302ZErsCsD 8AUKzphPdQ8Ol EEOmnUifBwK1c1F4Xq4Up 3MpmltvDST6HIvwIGLtBf UzXuSbXtB2Q8SkKhs2XHQ bnKboRU6dG8Re PZWencdnprujpIE5WFGxG MFvzD79dIBtLTyaDa4kk3 L9z560SJEjTMXxkV66Ri1 udDogMTBwdCBU aY5oaifqm6rmvcxaDgKxJ AGkCPz2RRn2VFVcvOxdFe EaRZP0GkI8QVY3tNSvvN0 ueFmkidwdlW8o Oyc+S96gcR2oACU3NOY0z pylQJZvjaJtTR55JP69Z5 RyPjwvdGFibGU+PGRpdiB keTgvAN5wLfUk x8dav4VxVQejB0WgITLlM QmrHek1TNAdKWB9hUA5cP 2bCTLtDPhcc3P6qZD7L4N rzmPpbg5gu9es EXZpZXhhX08khCTjq6W1F CDhpEG9UFPleTguIvGgcV 93Oyc+JYAapFtbc4XaRgi ut9zvo6wzdSf1 VcAbQSZregAxkIlvYDR4f 1WpNd10Y91gTTjyYIBnEA UcDTXsQJIyrIgyxy7rkP6 wIi8+PGNvbCB3 pMD4hB5qNQBqWuK5MNewF 979LdOacFEvMusgd7egx1 gjxUo2OtIfAFYisgSjwBf rWLV4t6DbDv25 R20jUYjfOLAaNDXfWYXwT DDqdXfwrx1kqE3nKm0+PC 1lg0roqq27vI05qKZ+PHR nXSJ9nTcwOLky TMApfU7dIPzlYeW5GPOqH bRleM78kLFqFHluOc1tcA tmgCrhQJ6zCZUpyevyl35 6WeJho7xvYIWr bKLyZNtkZSQ7R83zr1W6F XIaDWMuQUL9pHL2aL2ztE lnbjogbGVmdDsgdmVydGl eMZcuDSouJ719 IHRvcDsnPlBhdGllbnQgT fIgFDy0W9FxVrq7MHVpkT daOM2scGCmIDftKp5soAj vuSbdJD4tCWPp lmjcw851PoBeu0ceIACxe SCnLWoqLWB0M07sc4N9DU CrHWPuAMX6jTI1tT0lbKh nbjogbGVmdDsg ugAzhAafIVocKNwcX520F HRvcDsnPkJpcnRoIERhdG E6ZR66XE12mGCaj5B2eVN 0D8FnOEHtfkgv pkxqrFS5LRVpDVFouN55K o5fuGdmTt2cTFQxNSJ1UQ EyfRAwX9SueQ9sJcBoUMS uKGCoH0XnsDOp GXbfO137SOlaAgB9XCAiz gQbF8FhVYFgiJtgHxO2u2 P0Co2TY2U3YF92UH33bOM ik8V0zAE3B2Qd LUUlunktzldpiXI9YHAdL WZhhR16Zm5fzVaoEl1kKV UlLIG5RLNggKZsG2ZcvS0 yOiAjMDAwMDAw Z4JueGLzEEbgH451WFidF pZ2WOJqtrSzT7AvEDWnkM xyBhW6r6T7Gk2TLPq4HJ5 1JS28uHZpv9E7 uAL8A0IgZVJeufvmhiyrt PU4EASjZWAywN95Gw1xyK geHi3qXXTaGOV3DFFzaRD hN2DupB6eIaUo SVCcISHnR2RsmMTfKQpwA 689MGyxIrQ2XZPgtsZoC1 QbXFHwbUftQaS1x0Z9Fj5 MPAZgPC97GVY0 dQU4OF83PQ43T8JlDgtdh GFibGU+PHRhYmxlIHdpZH RoPScxMDAlJyBzdHlsZT0 jVo4cXHRcGFAu hLiyaVHnQwYjm9zlBDIqE AqfFB6hzTxjI7MqkVQ5MT Tct9t9Me28B43uE7FfzIP +ZRJobWZ7bTF7 hD7jDvZpLbF2PDtzI211D uAjpRHvScrfc8snc2pjfX b1YtS3HXVvgnNdsHekXZW 5r7TnEz43P29e IHdpZHRoPSIxNSUiIHZhb Hnfvp5uuZ1sTt8+PGNvbC B1dBP3hQ0xXtRjWuA8CYg oZ415OuHmpGXi Abacv7gro0aqzVk3YhSoA IGnqnHsfNueWRT4l7TfGm 77U7UwnAuqa5VeGyt5ka2 1pYGju2H7yGX8 N8XhKNAaejuqbYHpcMfhC N4gLFOgrmjlOGXhuM6ePM SxG5v5FjHqIwS7QTuhH3C btvD7NZZhkJYp MSkyFAF4Y81mo8R9IMLdT TOjLAY0uMD3oP1leRojjx ogbGVmdDsgdmVydGljYWw tNZbaB605MJBl wDfaEVLqsL4eGTAfpYEbh SexEZ5jSFIfvgogBkkKLM wsIFNIQVdOVEUgTUFSSUU 1B8GlHfd1YCLw jYjyDX3iuHPvNIfdMq4ep RhpdWmvAM7eJMPncoytMR DdkP3kCOPtqRImlLstAV8 gVAKizpkvy466 QdYjZQO8JHWfyCMxS2Tih O7kBaHlBIQpKWTdA4TyvT BhTEiqV395PEyuDqP8DBA yfuJzI7RwPAKm jNzrHgI7v0U2Eu0bEK9mI s3jMYd4MD86UE68iHFxb1 K7pDZ1Q7IiVNOpkhaprhx adLU6VNVfZXNx lL89cYFgSCdnMq7tr0I0z 897ATJsJILcqN21Bb9taV meTORriHIJiP9iafzdj4v vcjogIzAwMDAw LFn9FOn6ERTnaTkdXdOdL YI2XyJ0UAI6aUWhnD5qqO jrcdqlkL2iXfb+MzYgWWV zcrT7W0RpXtm8 VOWahLecHK9bhVFuZZenL e9qnMcakCkhFH5qMOOxkb erVEAwfL2dAQXmqGOviJm kOQ5iOEStxqut a778CoWiAJA0NKNdjTQtE 8NljW3pVhAaPQLfSWXmK7 NatABxEJvyS515KYvgYwS 5XYKgcjOqX1Rj DWXyyZdcTzE7c0P0Yw6LO I7HGBI2A5ScIli0KYZviR xnZB8fjSAlQXbuNd2fsRm scEkvCW2cXFIy auxtATZizB1kXFOapNTsz QepHI2zBWKrgsngx585Eh GbJSA1QCBuhWPiJ4RoaT4 yOiAjMDAwMDAw Y7IfdTEjOFedL654XIwdW nX1CVLuhqOaC3DyBZUldH bmMnF7e2C9Du9VyFXnJ3G rE8c8Y9EyKqwi dHI+ET21EXGdOR10xBXlc WUec6ehjLe9XwNoFFUeBM U6bPogCCxvq8LeBSBsE63 deVHut9N5KNUk zQkntLOcTaEmnXD8qR0vK Wnoruitz8dofpksIfeqy1 cjku90eW91N90fLEmrQTU oPSIzMCUiIHZh yXdnid5szJ8dYm2+PGNvb EJ5tGD6iJ1bQsIqKcI0RF yhI394SzXsiPYyXibpn5c qq7xwyHj1NbSa FQOrndGkzFjeLWI2p0VzH q10N46jVLzxCIMwIJIeBA FrTTGoaAfytg1wqB1jCn6 +CG7uc0gsfn24 uW27iHE+FBAfDVX0xGncV CdhLCUrbT8ySGavAdQ9AS XjCjRniJ90eDGjMAdvDn9 tuLyqlVrhAJ4t BPNmehort398FbGqo7gfO SGmlGCePCadLIV0B73pr6 S5IESkIBAgUPS0sZR1aU1 hbGlnbjogbGVm dDsgdmVydGljYWwtYWxpZ 171PJGagMsrEwDfaWVmM6 fsmrSEZU2mJjchcXG+PHR bVDA7fSbwHXva TYZfcN5xSOBqW5y9SeKfK lU6GLnyB8IafoK7XQOgdM UaKGUiyDCFnQ5xvvhqz1k vcjogIzAwMDAw NFg2ABg0UPTfyYcfIkZtX PR8PlI4VPF5bJZszN7uyR tpshybdK1lRsb+RklOOjw vdGQ+PHRkIHN0 gUfeTPkqLWPrbU9yRCHhV 8v3ElYsGzA7CBpvT5Riez V0CJByrXSyXARxbILKlL5 crxkod8vcgrbl EqEdEFDuONl3AHh8JOKqh VwcHnMfOSP0TiO5ENM6eZ LzyN2cxHvqskjdmV9lPhi +TVJOOjwvdGQ+ WVMhSIO8vNixCSgrBHQdt L6gUVXlF8e5UuAaIsH1JT jaO4KlbfJ8ADAwcCIvVZR fjHDMhG3jlynt q2pzjpupFjSfYJZkMDm9Z Ym7OGQraJqxHgIlSSP8Wd W1CLW1tEBgdS7boSiklzl orY8jNft+UGF5 ZRI6DZ52PZ98U4VjYgsrn GFibGU+PHRhYmxlIHdpZH RoPScxMDAlJyBzdHlsZT0 gLy5qPPBaDESn bGx (more content not included)... Normal [facility] ED Note-Nursingon 02-17-2021 ED Note-Nursing Patient called and informed of positive Covid results. No questions/concerns. Normal [facility] 2019 Novel Coronavirus (CoVI D-19), TERESE on 02-16-2021 SARS-CoV-2 (COVID-19) RNA TERESE+probe Ql (Unsp spec) Detected Abnormal Not Detected [facility] Comment on above: Order Comment: [phone] Result Comment: Yamilet ents who have a positive COVID-19 test result may now have treatment options. Treatment options are available for patients with mild to moderate symptoms and for hospitalized patients. Visit our website at [email or web address] for resources and information. This nucleic acid amplification test was developed and its performance characteristics determined by [employer]. Nucleic acid amplification tests include RT- PCR [...] detected) result in this assay. Performed At: [facility] [id number] Shanna Correa PhD Ph:[phone] Performed By: #### 6 [id number] ####[facility] ([facility])[address] [place], [place] [id number] ED Clinical Summaryon 2020 ED Clinical Summary [facility] Emergency Department [address] [place], [place] [id number] ED Clinical Summary PERSON INFORMATION Name: TALHA BELL Age: 35 Years Sex: FEMALE : 1985 MRN: Acct#: Visit Reason: Cough; Sore throat - Adult; SORE THROAT, NAUSEA, WEAKNESS Arrival: 02/15/2021 13:59:29 Discharge: 02/15/2021 15:33:00 LOS: 000 01:34 Check In: 02/15/2021 13:59:29 Checkout:02/15/2021 15:33:00 Address: [address] [place] [address] PCP: SAVANNAH RODRGIUEZ PROVIDER INFORMATION Provider Role Assigned Unassigned SHOLA HONG ED PA 02/15/2021 14:02:31 Vlad RN, Dai Sheets ED Nurse 02/15/2021 14:20:51 VITALS [...] MAR Items 1 EA INH Allergy Information: Oscar PHYSICIAN DOCUMENTATION Patient: TALHA BELL Age: 35 [...] Medical history: Resolved URI (upper respiratory infection) ([id number]): Resolved.. Family history: No family history items [...] or hot potato voice appreciated NECK: -Supple (ibun-ng-sbkxd): non-tender. -No swelling of anterior neck or [...] pain with (more content not included)... Normal [facility] ED Note - Physicianon 2020 ED [...] Medical history: Resolved URI (upper respiratory infection) ([id number]): Resolved.. Family history: No family history items [...] or hot potato voice appreciated NECK: -Supple (nkzo-tj-gwbjg): non-tender. -No swelling of anterior neck or [...] other p (more content not included)... Normal [facility] ED Note-Nursingon 02-15-2021 ED Note-Nursing Pt presents to ED r/ t sore throat and burning when she coughs. Pt also c/o h/a. Pt states her boyfriend is here now and is COVID positive and she wanted to know if she has COVID. Resps even and unlabored, vitals stable no signs of distress at this time. Normal [facility] ED Patient Summaryon 021 ED Patient Summary [facility] - Emergency Department [address] [id number] PATIENT DISCHARGE INSTRUCTIONS Patient Information Name: TALHA BELL Age: 35 Years Date of : 1985 Reason For Visit: Cough; Sore throat - Adult; SORE THROAT, NAUSEA, WEAKNESS Arrival Time: 02/15/2021 13:59:29 Primary Care Physician: SAVANNAH RODRIGUEZ Attending Physician: Tiburcio Kennedy DO Comment: Visit Diagnosis: Diagnoses This Visit Cough ([id number]) Cough (R05.9) Exposure to COVID-19 virus (Z20.822) Sore throat - Adult ([id number]) Prescription Information: If you have been given a prescription for narcotics, seek immediate medical attention if you have any difficulty breathing or any sudden status changes such as confusion and sleepiness. If you or anyone you know is experiencing suicidal thoughts, mental health, alcohol and/or drug addiction problems; contact the [facility] 26/11 Crisis Hotline -Text 4HHXI vj 773546. If you received any narcotics, sedation, or [...] legal documents With: Address: When: SAVANNAH RODRIGUEZ [address] [place] [id number] Business (1) Within 3 to 5 days Comments: Follow-up primary care provider as needed for reevaluation. Continue supportive care measures at home as discussed with plenty of rest and fluids, Tylenol for aches and pains, baby aspirin a day, Vicks vapor rub for congestion, honey as a natural cough suppressant, pqro-par-lnwvnmi Mucinex. Return to the emergency department for any high spiking fevers 102 or greater, intractable vomiting, crushing chest pains, struggling to breathe. Medication Information: The exam and treatment you received today in the [facility] Emergency Department were for an urgent problem and are not intended as complete care. It is important for you to follow up with a doctor, nurse practitioner, or physician?s custody assistant for ongoing care. If your symptoms [...] so we can reach you if necessary. [facility] Emergency Department has provided you with a complete list of medications post discharge. Please inform your ship unloader/provider of your visit and for further instruction [...] Quarantine vs. Isolatio (more content not included)... Normal [facility] Coding Summaryon 08-29-2020 Coding Summary HTMLBase 64 XgunglmeXVz7vSh+PGhlY WQ+HJ7VZPBrY22jpHHbwD 4JE3pKMZ5ALULUBPBDFS3 ZJW7iwHT9ZDsrL5QcqsOc NkxpmQPkWI33UJc0NBW8m PvvWDdubB5ckBVyZ3o7Za HxHL76iV24QDllMBPzSdC 3LjZpbjsgbWFy T8xiUdRxlPMvBsz+PHRhY mxlIHdpZHRoPScxMDAlJy KroSfeYV1gOx3mTBDqGYX vbGxhcHNlOiBj k6coZKVkOUlbEV9bpQxxR 4KroIA9JHZyl1q0Yy04nX I+GMZeLMV6cRpvXNmei57 5SnOnw6stRZO6 gTVcQLigHIW6O02lf6Y2R HIfRUJpQUC4vCM0aZ6mfZ kwbvotS5KnoXWgLzL5LPJ 1hSAvoB7qaRqq ikwtaC3iWjr+W27IVO1CI NCMBV2YBhd5A0SwKhcxwR I+HV58YTKdYR43qJPdwXV uc3lryDk5CkZc PVLnYRJ6oJchPLovb5QxH NDwV46njDOxe3X1LDMxxZ pajDDwQsEiaJH0mM0fVCy tdliqv2jxqrmo Stczu5njyl32eB09S55sZ NbuCQYjZDA3VERoIUXpiP olog5wwY6yKo0+WBhlj7v hs3xcoYf7DlZx WRHupqReoXxrLDA2t8GmI k91W1JlvMlio0PdOaj4xl 77zYChj9Y9jNY1APntLGF reF0dPLhoVwA4 WKBwHdMbxH32jZIcYEylY f8xwIiwrMayKC0eJFSrsx tiLHGmaR5iNVDqaDCtaCf qEO8tFKIbgkbz g343GxGoDPZ7OHNonMNvE 6VwyI6fCtAlHYYqZFPsC1 DwgCSqNMqyH457HQcsMcE 5DQPbmzThE9In MMNkaIwrGuG8j2G4Rt7Vz 0QqfvlgCEQ7XJplYFA8Nm T0QkOqXqI5M7OgEuv1HFM scAqqRY0jW3Ms ZVFnpxfsvtxfxKU9SGPbA ZIwcZ48bKSgOQwkHj0jz5 X1z973DDHiWNPogP79Py7 udDogMTBwdCBU lV7eyisjy3kkjbqrKwPgH AAbAYo2JEw9NNLkoWprMx AmGAE2XvG7JAJ4iLRgxS8 dmDmypxmsdC4v Oyc+O40qoG8tJJP0MPO2h twwXNMtqxBfLD62VZ15X6 RyPjwvdGFibGU+PGRpdiB zrQfsUZ5mIhVs a3xpb4QeJJbkI8GrGIKvV BeqNiv0UBUrIZO8iOV0fL 1sZKWmPArrd2R5bCY8M9N krpVlek7yk0ed GQCzCQraU07bjMErt2C0Z JKniKF7PWIqlUrnDjCovU 93Oyc+TWVvfDoqe4JcGtu fl2rxn7xidLk2 LkTcPRVdmkLgbXufXLF0t 9PsZc33W91xUIxsVKPaPF CqJFLbZZRvaSdtyf9pkS3 wIi8+PGNvbCB3 dLH6kF9mVCFcZjV7SAubQ 675UhLxeAEiApgxz2idu4 iosBd3KcAaKIYriqEcaIu cSGE9t2GxIa97 E17rAMqzEFAtQFAcLZZwA SIssBgzll3hiC4cSd3+PC 7qt5nslu44cW36sPJ+PHR iWWL2eSqzIGgb IKBqiU2uBFhzNaW8JVTkX iUicV77zNAdKJotXe0paZ nqdSsoSX9uRIWejkmkq53 7KnKfp3nzUWZu kVXrKBxhVLB2B26mu7J7C DGyPPRdPEU7oTX9vB9iyT lnbjogbGVmdDsgdmVydGl gLOdjZOojJ489 IHRvcDsnPlBhdGllbnQgT wOfKNa4U6OrMtv3OSPexA cgPS0voBAhRLycWm3zjVp mfSwmHQ8pJXBu safif043AzHvt7goJCXia ZCnKJxfLUP5S01im5Q0AX SfMDCaFBA1bGH7eI6nbUg nbjogbGVmdDsg suOitLfiSEkwKWgfU628Y HRvcDsnPkJpcnRoIERhdG C1KG38VV38yAPdh5Z0cTI 5O2ZbOLVvtuav qlyepKJ2HQQeRRCpgD31Z w6yhIqxRo4bIALiVCI2WQ TcgXIbM2PegH2xJvTbXEM xOTFiZ9SoyACh VYokP349VRbpYxH5XPTvw wJsG6WgRQOwvXqfNuV1p9 W4Bl9MU5M0QL92YD34iBT bx9B1aSU8R6Ga EDUynncetcjygFT6JEKxL PXgfV66Gh4ycEteUs3kHT EsYOS8OBLjvUDcO2MswT2 yOiAjMDAwMDAw K5SinBHwDXqlV811TGroJ wI4PATzhkHcU3DvBVZwuM hdPjI4h8I4Fl9SDIe9KK1 5XB34wGBnu3Q3 sGE8Z9DiYEXrspoyywnts DM6XQHbJKAdcR16Qk6qfA efPh0aFCZxWSW3DDTfaQI sX8PwlD6lQaJk OHDvLSItM4KggVIvVWbfY 241FHkrQfJ9WGPxdxPmF7 PpKIChcFruMaK5p4D1Zw9 IWPAqIH06IEZ4 oPT1NY64BI87U0QxZcuip GFibGU+PHRhYmxlIHdpZH RoPScxMDAlJyBzdHlsZT0 uIx1nNZTyEHTe jZleoSVfFkTao0nmJAKwZ FftUV7dmLolB7WuqCC6JK Ezq3x5Ch75Q80eD5HgtON +NGRxoWL2hNB8 rM0lMrXpCpS2ODekL322F pIywBXwTgnqj5cnj6kerB k8GvW0NXNasjSwdPgaUFD 2l4VnZn43B38s IHdpZHRoPSIxNSUiIHZhb Mdnhu2kmE8oXq8+PGNvbC H6rOO2cJ8uSwJmTcD9RZe fE910ZdInkLUw Lnqdq1wys1ivfWc5TxSnP DXgvmSacXqmNBG8a3VhPz 27H6JklQzjr2BxLvh9gy5 5vBBvr1K2bPZ0 F9YyDVTzwzdtuJHqgAusG O8qCBWjxaxtIOHpmO3nHL DvY8m4FbAeBaX9PLnuJ9D mqmP4UWYwiPOz SKdcCBR3L26ql6E3BNRzT NIoEIM8rOZ1yH3gtNloct ogbGVmdDsgdmVydGljYWw qSXgqG814HUCi iFsqDNKnqB3fNBBqtFBkr GiaLT7jLDPvkucjAyzPCX wsIFNIQVdOVEUgTUFSSUU 0U7ErCjl3XLOo eHcuAO8dtHNvEZyuMc0jc KgzxQhnGC9iFYOizpriXV EhoL9rFTJcsPSrmCevGQ3 eUCBdgvroz402 FtCdZER5DYFbkIGhF6Dnu F5iUkVgIYUgAWQsW7LecS GzKQchK438RJngKjS9EMN gqfGtP3IdBZXl sGqqVqG9s6L1Ud5xMY3cT a1zOLy6JC40ZF47zAGvp6 R6zLH9U9ChSYBujjvzuqx ycEC8ZMTfRPKo hO85zDOiTLtdJj0sl3V5x 325JZWkLCZieR61Se9opO akWTYuhKBNoM2qyfbpu0o vcjogIzAwMDAw CBq5KEd8QRLbwBegMpAiL PG7MbZ2MQA3aCAykI8atT afmauquE6lVvq+MzYgWWV idgF2G8QeCop4 EXDpoAkwPN8osAVtRStkZ m7seDwybLeiYE6rVQVjmv hiCCLwdY8cSHHshRAucAe bMA3dTDSlewno s444UmIkKUP6UWGudUDlK 3LzdP5bAzKgMGFfWGHgX8 KcxDDeQKfwB567UMhhEaC 5QKXtxvSsL4Tq BAGqhRtiTmA7m3K4Od5SL W7NEYA6I9SjOdj5KDJxpQ anOK7kjARlAFqeMg7ktKi yhTmvUS8uGJCv etckAMAkhH1wGURotCCeu QyvKE1nNCRokhdqb144Fn WfURP1TTHwaUBmY9HiyV6 yOiAjMDAwMDAw B0FrsTCcCJmsK906ARfcO gH9DDOxoiEzQ9OlJYFpyK oyQeE2e9L0Kr2BFAjvwSB +OV01wu00R9Po NckaYjs0SEAiSZT3uOD2l C7hDJSwMHhon8G6bBJ2J8 XeleSjkm3ns7ltGYFyREl rQ27oaXOzy9T9 JCKhxUP7ALEumYnfReWpl G93Oyc+AHKteOxoe2TgGx feb0rqp4akhYg6KyRoBHL gdmFsaWduPSJ0 e4JqGs75T25xKMhvZTYnU KXxQNUbPZAskCzhmf0vdF 9wIi8+XGNzpPN7kCK2xD3 sRfMiYzF8USrb P972BnAulPNuJpwzm8cxh 8dcpUg3SwLcOQDafcTfdM cgUPP9y8NnWg14B9QkgEc xi1SpUmm4ij74 yJLjl3B7fPJ1T8BuEKOth vnuiIRhtWnhQU8dLFSqmx joVKMdlZ4jQPMfX4s8VoL pFyQ8HUjqN0We udC2HNYvfVNgJUDzrCSIp J5lhuhtf2mrzddaBmWlYH PuCWh5YLt6ZVCafHmiStX pOFU8EnL5TXG3 gJEoaA8nrVnirbepdU4oQ yc+DFc1h3ijjHKqKT8lxC J0GF28MO27vJWtm5S1sYF 2P8YmJIMgqtqd idddnRJ4SRHiNGQceX64R y9fdIkeNc5xNCPrZQZ3EG OmiOTjY4UrmM8tNxEdHLV tIYXsS7AndRXu WOthJ236DJwxYnX8PVAyc hXjD3QjRACijMnrWbS8q5 A2Oh3EZY77LQ47MY78bMK mg8C8bTL0Q5Ed NGNfewhynookdKE4BGFlM KBkmK28Zt6ryOqfQc1pJR QmGOW4IVTpgNGbP9JsvY6 yOiAjMDAwMDAw L0TmfDDvOOagL838ILynM hJ6BCTxpwZvP4TmGYGnrH nuNiN7s9S9Np0ZOh26FW8 8ON46nDApd9C8 aLD1J0HdDOJwjysjvxsbf SP0IOFcUAHjwO36Hv6rkK yqZa7jEUOnJJU6GDVlkQU cY6MruI2jUlQa NHJfGOAaW5OneMJnENegU 093ZFeaPuH4TLKziuNaI3 SpEBIlvStuKcZ9u6Q7Vn6 SUItelrg8Y9Ga PjwvdHI+XY75UZPbLY22q FYarYMmu5iobHr3FiFeOZ JjKUP8uAjoPJvfd0QyVBY sN33cvKBmy2U2 IGN (more content not included)... [facility] Coding Summary HTMLBase 64 GftsaywpEKq4sJq+PGhlY WQ+QU8FZJKgI30ntOHtcS 6NH7rEBU9GUUNMFWMHZP6 GBP4xyLX5UEzkX5DmwpEo MfoxgKHkHC06OQb4PWF8t HgzWTppjO2jrHFcT3d5By EfSV87uI69TYvvOXYuHpU 3LjZpbjsgbWFy C8lxEsZkkFAsDvv+PHRhY mxlIHdpZHRoPScxMDAlJy BmmGluED9tCr0jXZKzWXM vbGxhcHNlOiBj w4nhURKxTEkyXZ7vrPqrP 8MozNG7JBZof6a8Fj42pM I+GVToPCL9gFxzDQtjp85 8KzJkj4uuOLK5 bWWcXKfpWSH7T47fh7R8U ZVdXBPcYDY4mDD9oQ8msK uocxvpS7MtiARpHpJ8IIL 9sGVwlB1swIme phbbpY4pMfr+A34KST8UB VNZPQ7VRsb5O7KwDdeckU I+FW16LQNpQR96fPKylCI ju1xcmXf5YhSu VPExWSG2jYxgIQuht1XyC DUmC84soDSmb6A7JCGyuO oywHUyVwTwjPU0cQ3xGZn zdunws8ntcfyv Cdgwt9wngh66xD65I87xU SizYESuFPA8STJkVDRimW ritc0pjR9yMc2+GFeiz1s ix1yifBp6QaJy UGMenqIpyGdfHVR4t6YyO h61B6ZalEvqy4ZuMdh1lr 47kWJnp5Z8cSL4IRvvMEF tfZ9vQPxzOsR0 ZTXmVqDuiM40tLXwWYwuJ j6kjBynrFqrTG6nEWJbxg srIZLhhK2iITQoaJLdhDg aXZ5oHSSgkaon x427AxFvNRZ5QRQlgTEjM 6QxgM1tRgKuPKHeVPUfB5 CllOXgKIjcY472DLdhCpS 9MXKwyvRwC1Tx RSDmoSvhJuR3j9H1Ka0Xp 7PsmcugPKU9CXpfYPP7Hi S6KxNmDbE6Q3ElAmj6XRI qlGayFF7tC8Dw IFLcssqhzwdzbNR4JUCqW QOlxA26wYXfUWcmEk2xm3 G5d059UZWfATYfgT39Om5 udDogMTBwdCBU cG6cpgylf9eycpklQjDnX WMwCMr8NUe0YSMctJzsQg AgNCK0BqE7DPM8bZNkbX0 asYayaqobwI2m Oyc+E54jzL5nMRI3ION3n ovuLPShqyEyWW95MF76X9 RyPjwvdGFibGU+PGRpdiB dwKfwKG4vPyOa h3owy9DmLLcoL9AoPIIiM KtpPoz3ZMVuIUB9qPF9uQ 8wYTFeKWofb6Y1sTP9G7P njgPvpa7rj7ax QNPoOGheZ72htNPzg5G5S MYfcEE0YBTcbXyhDzYpkF 93Oyc+AWAmgFivv9OuHdo mc3ntk0blmDh7 XhGfXOQpvqPyxWyxBRO3s 2DmXi99B81lOFraMPDwJH WtLDCoFYQqnWellp8hhD5 wIi8+PGNvbCB3 sLJ3kX5yFNLwTnU4TVgaN 019XwQolMAyTidvp9nmf2 jowKg4RkDnZYPkwuOjjXq pGMX3s4CaGt12 G42oXNlaNBSkWVVwLMUfS VNodPxmok8dwO3hEd0+PC 6ro8fkxo25dG91oYR+PHR sOSN5wNglFSff ICCovF3sXOfbShA4MEYlO xCwzQ29cWDbMBvzYt5euL phhImnFG0tBMNbmwuvt29 0LhDps5loJEIh vOBcSRdnNAC3D56lv6J2N GOpAAVgPQC6wFG5jF3bzL lnbjogbGVmdDsgdmVydGl qPFcrHDbdA186 IHRvcDsnPlBhdGllbnQgT fQfOLs1B0MiRam6JVEgmL mkDF0fdPPbSAkqMr3iiXl yeYrhCK9aFOAl uidnk584IqMih6nvBBZjl RPkVJisVPU3Z67hb8G4MT JeYNCdBUI2sOO1fK5hmJi nbjogbGVmdDsg wdEeaHwbHUuxCSpcE055T HRvcDsnPkJpcnRoIERhdG B9KH57UX26rLYjg7N7kQX 9M3BgVAHlmyqv pfasbZS3CBWoVZPdzE09X l5nuHplAs3vJXKhPCH6CG GamWGlH8ErbG3kRzQgETF gEVNbK8QwoGQf WHraX682MRzrVdD3BXPgs rIsD7JpOWUdnKhvJqS2e1 A9Il1MB1L3FC44DB56sVY le9E7pNB8F4Al XGLfoljzanbjdKF4GWFcX CGhzV41Iw7sfMtiYk0zSA MsFBM6EDCbqPFuV7VgwU6 yOiAjMDAwMDAw I4FizLKbZNypE328QPnbK zZ8INOfooWnD5DqUTDahS ygKyK7q5D2Oi7JPWh1IU2 1RW99oVRax9L0 aFM0W6RnSZLmdjldconaa FT9WHBvBGDylE66Je2zkA ybHj1vBXOjABD5UQSmzWX mY0JafD5xSfAj SDZeVLKbX3PzjJLxBPrkP 240STuzAcL8ZFIiwpImX7 CjDLXpdXjlOtG3m8R4Ob1 AGLLdFY86TPZ9 tLU1DG61PK36Y5VgCvkda GFibGU+PHRhYmxlIHdpZH RoPScxMDAlJyBzdHlsZT0 mUd7gVMVsMQHb hGhweWAdHcTpz8yxFKSrI IqyOB5lbApkM2QqdHV4LE Qzs9g6Df29Q01gJ0QwsOC +INKdhQL4yCV9 lT0qBjCoUlL0OBhdA124O lUujDEbNzxwu3wfr3wmqR d3GnY7SUEjnyBqlYoaJUN 3i8GlEy49O54l IHdpZHRoPSIxNSUiIHZhb Hfyrk8iiQ6kSl1+PGNvbC X0uNA3iF0qUgPdYaQ5GZd hP040UlHyvFDu Ghdwp9fuf4zavKp0JmJvT FYxeoFrsEqhIRS8e7FaSm 97N7AacBeod9VfNki8ey8 0hMSvx6Y1dXT8 R2NyCFDovvnldWAxlEioD O2uDPJnbtexJRPrhN7rJD InZ5g3MvKsJuQ6QAkmF2U ptyV0LMWrcZYj GZnvVKE2Y86gq9J7WUHoY ADlXDL4xCS4gS3uoHzfdo ogbGVmdDsgdmVydGljYWw uRVyyE315GEQk vJnzGAGebY7uRDHfrSYav DgqAB8oHYYbgyfaMjvWFH wsIFNIQVdOVEUgTUFSSUU 0D6NuYyq5FRZe tTbaIF0qnZNbBOazYt4iv OsubRxzUJ5zGEVdzrilLE NzrY8pTONhfJVkuQsuTL6 nXEZrzfmid947 WvJjIFW7UUWccSAaF0Edn O6gIlKxBHMrSTSeZ4JveW HfKPgzA141SUdvMgJ0LAW ifrSrT8UpVYUx aYwyHsN8a7Y9Zm8xXM5sG t9tDEq2EQ96YO26oZSdr3 A3xSC8N6XkDKIpmgokkis ojQG2XNCjTOSb mQ84eFCcRZtkOm0yq7G3r 786FXCgMIEvvV36Hd3eyS heIAYygLPZhG8dqcjeu6t vcjogIzAwMDAw FGa2SIy6TJLtwGgqMmWgG ES0UvN8NKO7tJLmtF2jfS ymhbpyqY0pUvk+MzYgWWV eawB3Q8MkNze4 SHVthDkxUN8ovWJfJMkxY o7xuYpwfArfGC1iYHHlym dvXIPxdP0kSTXblYXpeUc hCX7zVHTbesey m358UhJsPYL1IRRwvZDyB 4IbeJ4oAcFiYIUhAQRlI5 VvbRQzFNqjB301BYevKtZ 8YRAeojYdP4Sw NBBpdSftDkB9f1K9Re1GY P8OPMR9Y0YoFan9DYPmsK kiTV6lkOGlGLmwWy2ewPi giPfqAH8nUMPt fpctGUXarZ5yVSQyvYDkn XriGE9rZCWumvorn550Sa VuGME4ELNnkABsG3WyfA1 yOiAjMDAwMDAw E0ZkcCJlYYanN767VSsgS oA9OEKyorYfQ3UgGQPdqJ pwGlV7e8G4Yp2NsUYwK2O rZ9z4J6UxNaig dHI+JA06KSShBK36sDBbi XJuh4pipZq4DwFtDUTfFQ H7nGagQVlto1PeTGAdM36 efEJwm2K4WSPo vOpnhHNrEpJrwSB8mJ6hC Rnjstjsr0owkijxPnavn2 bfpn94bF48O38nQHbhUHC oPSIzMCUiIHZh tTqwks0dmI4oIu0+PGNvb LZ4gBJ8mJ7aJdQsOhT8UM ovY950BxXebCBfTqvcc1f bv1uzgPr9BsMe ENXesyVlnTzrGYS6a7XeP p12E09hECfaOVVsIXZzSO ZpWCSieIgzhl9fkM1yEf2 +PM2of6uyar98 eL91uUQ+MODrCGP7rYlmW NjcMRAqhK2qLSqzHmX4TZ GoKnIttI28gOHpIQduAw2 odXkedCugWM3c JCMtkjczg597LnMwn0tiL VBidVTxADlcQLY5Y72wy3 E4RACiGEDjTBU2hIP8wJ2 hbGlnbjogbGVm dDsgdmVydGljYWwtYWxpZ 626YDXbhRjoTgOgbYGuG4 qqjdNPJI2aCctzyPU+PHR yLTR3sXeuIJpz VMBsjL0uFUBvB3c7VpHwY aK1MThjD8YlsfP8ICSphS ZoMUMjtADJgL9eudsed4f vcjogIzAwMDAw VLy4RIe8VMTauHisHeGwN QE7ApS4NCX2pYMzqR2tuO cuoqcteD7eRin+RklOOjw vdGQ+PHRkIHN0 oJjdUOumLOQtaJ1jWFAmU 6y5KgXdQaO4NJniW5Iitk F0IVXeiSReMWWixUSXrI0 jmvtpm1smsoxm BpUgTRKsPGw4FAh4ZYSpi VssMuHqZFZ8OwC1MDU4nF AtcZ3yjRnqxddjgJ8hYnc +TVJOOjwvdGQ+ ZABeXEC1aYbqZAgiPQYdq H4vYAKeN7i4BbWkMyV8UM ebE7MdrmU4ETPqpIFqNKK lmATMeZ4rgaye v7xtuhntMhGeWSFaDMd2W Or5DCLplEhhBiDmRFD6Ai V6EZI2uJKoqC2hsZfvtcy nrD6fCiy+UGF5 TAR8CN28LL71A5TpYfrut GFibGU+PHRhYmxlIHdpZH RoPScxMDAlJyBzdHlsZT0 kFz0nHMQkDYVq bGx (more content not included)... Normal [facility] Chlamydia trachomatis, TREESE L Con 08-25-2020 Chlamydia trachomatis, TERESE LC Negative Invalid Interpretation Code Negative [facility] Comment on above: Order Comment: Send results to Dr. Rojas Result Comment: Perf ormed At: =[facility] [place] [id number] Beatriz Reyez MD Ph:[phone] Performed By: #### 1 [id number] ####[facility] (DEFAULT)[address] [place] [address] 72747 C Urineon 08-24-2020 C Urine No growth at 2 days. Normal [facility] Comment on above: Performed By: #### 6 [id number] ####[facility] (DEFAULT)[address] [place] [address] 16266 .Auto Diff 1on 08-22-2020 Auto Storey % 7 % Normal 1-12 [facility] Comment on above: Performed By: #### 1 [id number], 82481175, 6053812, [id number], [id number] ####[facility] (DEFAULT)[address] [place] [address] Baso Abs# 0.0 x10 Normal 0.0-0.2 [facility] Comment on above: Performed By: #### 1 [id number], 89399065, 7635400, 4290166783, [id number] ####[facility] (DEFAULT)[address] [place] [address] 40926 Basophils/100 WBC (Bld) 0.2 % Normal 0.2-2.0 [facility] Comment on above: Performed By: #### 1 [id number], 27406991, 2268799, [id number], [id number] ####[facility] (DEFAULT)[address] [place] [address] 07615 Eos Abs# 0.1 x10 Normal 0.0-0.4 [facility] Comment on above: Performed By: #### 1 [id number], 12566780, 8102861, 1823956398, [id number] ####[facility] (DEFAULT)[address] [place] [address] 61391 Eosinophils/100 WBC (Bld) 1.3 % Normal 0.9-4.0 [facility] Comment on above: Performed By: #### 1 [id number], 11222692, 5041257, 2108681837, [id number] ####[facility] (DEFAULT)[address] [place] [address] 96683 Lymph Abs# 1.9 x10 Normal 1.3-2.9 [facility] Comment on above: Performed By: #### 1 [id number], 93947717, 6872690, 0270964379, [id number] ####[facility] (DEFAULT)[address] [place] [address] Lymphocytes/100 WBC (Bld) 35 % Normal 14-48 [facility] Comment on above: Performed By: #### 1 [id number], 49292606, 0911258, 1879246219, [id number] ####[facility] (DEFAULT)[address] [place] [address] Storey Abs# 0.4 x10 Normal 0.0-0.8 [facility] Comment on above: Performed By: #### 1 [id number], 81909216, 1235343, 8246619029, [id number] ####[facility] (DEFAULT)[address] [place] [address] Neut Abs# 3.0 x10 Normal 1.5-9.2 [facility] Comment on above: Performed By: #### 1 [id number], 41219677, 5068604, 7744809893, [id number] ####[facility] (DEFAULT)[address] [place] [address] Neutrophils/100 WBC (Bld) 56 % Normal 44-88 [facility] Comment on above: Performed By: #### 1 [id number], 24421720, 1113434, 1648906162, 4292925246 ####[facility] (DEFAULT)[address] [place] [address] C Genitalon 08-22-2020 C Genital 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 Gram Negative Diplococci not seen. 4+ Gram Positive Cocci 4+ Gram Negative Rods 2+ Gram Positive Rods 1+ White Blood Cells Normal [facility] Comment on above: Performed By: #### 2 [id number] ####[facility] (DEFAULT)[address] [place] [address] 29443 CBC w/ Auto Diffon 04-19-202 1 Erythrocyte distribution width (RBC) [Ratio] 14.3 % Normal 11.5-15.0 [facility] Comment on above: Performed By: #### 1 [id number], 41565899, 1337832, 9911514524, [id number] ####[facility] (DEFAULT)[address] [place] [address] Hematocrit (Bld) [Volume fraction] 34.4 % Normal 33.7-40.4 [facility] Comment on above: Performed By: #### 1 [id number], 00064335, 7360222, 3282308569, [id number] ####[facility] (DEFAULT)[address] [place] [address] Hemoglobin (Bld) [Mass/Vol] 11.2 g/dL Low 11.3-15.9 [facility] Comment on above: Performed By: #### 1 [id number], 19115618, 8405107, 2049892188, [id number] ####[facility] (DEFAULT)[address] [place] [address] Instr WBC 5.4 x10 Invalid Interpretation Code [facility] Comment on above: Performed By: #### 1 [id number], 04831912, 2944396, 0972247733, [id number] ####[facility] (DEFAULT)[address] [place] [address] 37965 Man Diff? Auto Normal [facility] Comment on above: Performed By: #### 1 [id number], 99061002, 4927030, 4825186172, 9034065516 ####[facility] (DEFAULT)[address] [place] [address] 78901 MCH (RBC) [Entitic mass] 28 pg Normal 24-34 [facility] Comment on above: Performed By: #### 1 [id number], 83132293, 2470690, 9615539051, 3285259792 ####[facility] (DEFAULT)[address] [place] [address] 01474 MCHC (RBC) [Mass/Vol] 33 g/dL Normal 26-37 [facility] Comment on above: Performed By: #### 1 [id number], 62403197, 0485982, 1991399670, 6182449186 ####[facility] (DEFAULT)[address] [place] [address] 50034 MCV (RBC) [Entitic vol] 84 fL Normal 81-100 [facility] Comment on above: Performed By: #### 1 [id number], 25078944, 7518118, 1270433441, 8233664404 ####[facility] (DEFAULT)[address] [place] [address] Platelet 200 x10 Normal 138-427 [facility] Comment on above: Performed By: #### 1 [id number], 74858715, 9820323, 2476548386, 5851094280 ####[facility] (DEFAULT)[address] [place] [address] Platelet mean volume (Bld) [Entitic vol] 11.3 fL High 6.3-10.2 [facility] Comment on above: Performed By: #### 1 [id number], 57035755, 6187262, 2852378793, 6388504019 ####[facility] (DEFAULT)[address] [place] [address] 37890 RBC 4.07 x10 Normal 3.70-5.30 [facility] Comment on above: Performed By: #### 1 [id number], 79771635, 7155841, 2711746019, [id number] ####[facility] (DEFAULT)[address] [place] [address] 66568 WBC 5.4 x10 Normal 3.5-10.5 [facility] Comment on above: Performed By: #### 1 119537632, 94997079, 9045359, 1929817357, 5338065676 ####[facility] (DEFAULT)[address] [place] [address] 35580 CMP Standardon 08-22-2020 eGFR Non AA >60 Invalid Interpretation Code [facility] Comment on above: Performed By: #### 1 [id number], 43238994, 3983595, 5121652088, [id number] ####[facility] (DEFAULT)[address] [place] [address] 09192 eGFR AA >60 Invalid Interpretation Code [facility] Comment on above: Result Comment: Treater Helper alejandra Kidney disease could be indicated at eGFRs of less than 60 ml/min/1.73m2. Kidney Failure is indicated at less than 15 ml/min/1.73m2 Performed By: #### 1 [id number], 88744345, 3899717, 7136139197, 6819921890 ####[facility] (DEFAULT)[address] [place] [address] 22955 Albumin [Mass/Vol] 4.6 g/dL Normal 3.5-5.0 [facility] Comment on above: Performed By: #### 1 [id number], 38887588, 6037961, 3552913018, 7464731007 ####[facility] (DEFAULT)[address] [place] [address] 38860 Albumin/Globulin [Mass ratio] 1.8 {ratio} Normal 1.4-2.6 [facility] Comment on above: Performed By: #### 1 671044514, 54683457, 1213164, 9573876322, 9942820571 ####[facility] (DEFAULT)[address] [place] [address] 27411 Alk Phos 61 IU/L Normal 32-91 [facility] Comment on above: Performed By: #### 1 [id number], 67663164, 5628628, 5924866120, 2332539941 ####[facility] (DEFAULT)[address] [place] [address] 83238 ALT [Catalytic activity/Vol] 16.0 U/L Normal 14.0-54.0 [facility] Comment on above: Performed By: #### 1 [id number], 58878831, 1359682, 6959106397, 3509827893 ####[facility] (DEFAULT)[address] [place] [address] 54707 Anion gap [Moles/Vol] 14.0 mmol/L Normal 5.0-19.0 [facility] Comment on above: Performed By: #### 1 [id number], 35751913, 5406911, 6399553029, 9309724124 ####[facility] (DEFAULT)[address] [place] [address] 65397 AST [Catalytic activity/Vol] 16 U/L Normal 15-41 [facility] Comment on above: Performed By: #### 1 [id number], 30753741, 2853003, 3333927435, 3892214397 ####[facility] (DEFAULT)[address] [place] [address] 71301 Bili Total 0.8 mg/dL Normal 0.3-1.2 [facility] Comment on above: Performed By: #### 1 [id number], 71022551, 0554976, 7810788416, 1450559865 ####[facility] (DEFAULT)[address] [place] [address] 58625 Calcium [Mass/Vol] 9.3 mg/dL Normal 8.9-10.3 [facility] Comment on above: Performed By: #### 1 [id number], 82864694, 6881516, 4394156106, 2792237991 ####[facility] (DEFAULT)[address] [place] [address] 78365 Chloride [Moles/Vol] 105 mmol/L Normal 101-111 [facility] Comment on above: Performed By: #### 1 [id number], 72638824, 2201509, 5881523094, 4976059359 ####[facility] (DEFAULT)[address] [place] [address] 54554 CO2 [Moles/Vol] 21 mmol/L Normal 21-32 [facility] Comment on above: Performed By: #### 1 [id number], 44396737, 5796124, 8424351299, 6770070701 ####[facility] (DEFAULT)[address] [place] [address] 85039 Creatinine [Mass/Vol] 0.90 mg/dL Normal 0.60-1.30 [facility] Comment on above: Performed By: #### 1 [id number], 45002142, 4420197, 7582443609, 7098056977 ####[facility] (DEFAULT)[address] [place] [address] 13900 Globulin (S) [Mass/Vol] 2.6 g/dL Normal 1.5-4.3 [facility] Comment on above: Performed By: #### 1 [id number], 31809446, 2118713, 3617199957, [id number] ####[facility] (DEFAULT)[address] [place] [address] 76977 Glucose [Mass/Vol] 99.0 mg/dL Normal 74.0-118.0 [facility] Comment on above: Performed By: #### 1 [id number], 23733445, 6252165, 6605203494, 6010528166 ####[facility] (DEFAULT)[address] [place] [address] 19485 Osmolality 272 mOsm/L Invalid Interpretation Code [facility] Comment on above: Performed By: #### 1 [id number], 45821386, 2879727, 0619229428, [id number] ####[facility] (DEFAULT)[address] [place] [address] 47989 Potassium [Moles/Vol] 3.8 mmol/L Normal 3.6-5.1 [facility] Comment on above: Performed By: #### 1 [id number], 90704902, 5230749, 3144148666, [id number] ####[facility] (DEFAULT)[address] [place] [address] 47739 Protein [Mass/Vol] 7.2 g/dL Normal 6.5-8.1 [facility] Comment on above: Performed By: #### 1 [id number], 31102217, 7880558, 2162037765, 5355748951 ####[facility] (DEFAULT)[address] [place] [address] 16083 Sodium [Moles/Vol] 136.0 mmol/L Normal 136.0-144.0 [facility] Comment on above: Performed By: #### 1 [id number], 86131396, 1201756, 4982780236, 5018470784 ####[facility] (DEFAULT)[address] [place] [address] 59341 Urea nitrogen [Mass/Vol] 13 mg/dL Normal 8-26 [facility] Comment on above: Performed By: #### 1 [id number], 83388925, 4147408, 1625271103, 7179892632 ####[facility] (DEFAULT)[address] [place] [address] Urea nitrogen/Creatinine [Mass ratio] 14.0 mg/mg Normal 4.6-16.2 [facility] Comment on above: Performed By: #### 1 [id number], 12072036, 2518403, 1473792532, 3493837426 ####[facility] (DEFAULT)[address] [place] [address] ED Clinical Summaryon 2020 ED Clinical Summary [facility] - Emergency Department [address] [place] [address] 22578 ED Clinical Summary PERSON INFORMATION Name: TALHA BELL Age: 35 Years Sex: FEMALE : 1985 MRN: Acct#: Visit Reason: Dysuria; Weakness; STD exposure; Pelvic pain; Flank pain; PELIVS PAIN, LEFT KIDNEY PAIN Arrival: 08/22/2020 17:41:37 Discharge: 08/22/2020 19:50:00 LOS: 000 02:09 Check In: 08/22/2020 17:41:37 Checkout:08/22/2020 19:50:00 Address: [address] [place] [address] PCP: SAVANNAH RODRIGUEZ PROVIDER INFORMATION Provider Role Assigned Unassigned Azael Crane PA-C ED PA 08/22/2020 17:43:49 Mag Brownlee RN ED Nurse 08/22/2020 17:45:24 Teresa Rice RN ED Nurse 08/22/2020 19:08:04 VITALS INFORMATION Vital [...] States it was completed by Dr. Rojas bar manager in [place]. Patient states that she has been doing [...] transmitted infections. States her boyfriend worked in [place] for approximately 1 month and states that [...] she has a follow-up appointment with her OVEN LABORER on Saturday of this week however states [...] mL, IV Push, As Directed, PRN: line technician Prescriptions Prescribed B (more content not included)... Normal [facility] ED Note - Physicianon 2020 ED [...] States it was completed by Dr. Rojas bar manager in [place]. Patient states that she has been doing [...] transmitted infections. States her boyfriend worked in [place] for approximately 1 month and states that [...] she has a follow-up appointment with her OVEN LABORER on Saturday of this week however states [...] mL, IV Push, As Directed, PRN: line technician Prescriptions Prescribed Bactrim DS 800 mg-160 mg [...] Medical history: Resolved URI (upper respiratory infection) ([id number]): Resolved.. Surgical history: section (70408627). Comments: 09/16/2017 17:09 EDT - Denzel NICHOLAS, Mildred X4 Tonsillectomy (635100090). TL - Tubal ligation ([id number]).. Social history: Social & Psychosocial Habits Alcohol [...] smoking 2012 (more content not included)... Normal [facility] ED Patient Summaryon 021 ED Patient Summary [facility] - Emergency Department [address] [place] [id number] PATIENT DISCHARGE INSTRUCTIONS Patient Information Name: TALHA BELL Age: 35 Years Date of : 1985 Reason For Visit: Dysuria; Weakness; STD exposure; Pelvic pain; Flank pain; PELIVS PAIN, LEFT KIDNEY PAIN Arrival Time: 08/22/2020 17:41:37 Primary Care Physician: SAVANNAH RODRIGUEZ Attending Physician: Tiburcio Kennedy DO Comment: Visit Diagnosis: Diagnoses This Visit Dysuria ([id number]) Dysuria (R30.0) Flank pain (R10.9) Flank pain ([id number]) Pelvic pain ([id number]) STD exposure ([id number]) Vaginal discharge (N89.8) Weakness (12360372) Prescription Information: If you have been given a prescription for narcotics, seek immediate medical attention if you have any difficulty breathing or any sudden status changes such as confusion and sleepiness. If you or anyone you know is experiencing suicidal thoughts, mental health, alcohol and/or drug addiction problems; contact the [facility] 26/11 Crisis Hotline -Text 4KUAF gh 805410. If you received any narcotics, sedation, or [...] legal documents With: Address: When: SAVANNAH RODRIGUEZ [address] [place] [address] [address] [place] [id number] Business (1) Within 3 to 5 days Comments: Please follow-up with your OVEN LABORER in 3 to 5 days. Keep your [...] a prescription for Bactrim was sent to [facility] pharmacy for you in which you will [...] also be sent to Dr. Rojas your bar manager. Continue to monitor your symptoms and return here to the emergency department if you develop any fever, chills, worsening pain, if you develop any abdominal pain or any other worsening or concerning symptoms. Medication Information: The exam and treatment you received today in the [facility] Emergency Department were for an urgent problem and are not intended as complete care. It is important for you to follow up with a doctor, nurse practitioner, or physician?s custody assistant for ongoing care. If your symptoms [...] so we can reach you if necessary. [facility] Emergency Department has provided you with a complete list of medications post discharge. Please inform your ship unloader/provider of your visit and for further instruction on these medications. Any specific questions regarding your chronic medications and dosages should be discussed with your primary care physician(s) and/or pharmacist. New Medications [facility]/pharmacy #[id number], [address] [place], [place] [id number], [phone] sulfamethoxazole-trim ethoprim (Bactrim DS 800 mg-160 mg oral tablet) 1 tab(s) Oral 2 times a day. Refills: 0. Medications to Continue That Have Not Changed Other Medications (more content not included)... [facility] Extra Redon 08-22-2020 Tube Collected Yes Invalid Interpretation Code [facility] Comment on above: Performed By: #### 1 [id number], [id number] ####[facility] (DEFAULT)[address] [place] [address] UA [id number] 08-22-2020 UA Amorph. Rare [facility] Comment on above: Order Comment: Urina lysis Microscopic order added on by [employer] Expert Rules system. Performed By: #### 5 [id number] ####[facility] (DEFAULT)[address] [place] [address] UA Bacteria Trace [facility] Comment on above: Order Comment: Urina lysis Microscopic order added on by [employer] Expert Rules system. Performed By: #### 5 [id number] ####[facility] (DEFAULT)[address] [place] [address] UA RBC 0-2 [facility] Comment on above: Order Comment: Urina lysis Microscopic order added on by [employer] Expert Rules system. Performed By: #### 5 [id number], [id number] ####[facility] (DEFAULT)[address] [place] [address] UA Squam Epi Few [facility] Comment on above: Order Comment: Urina lysis Microscopic order added on by [employer] Expert Rules system. Performed By: #### 5 [id number] ####[facility] (DEFAULT)[address] [place] [address] UA WBC 0-2 [facility] Comment on above: Order Comment: Urina lysis Microscopic order added on by [employer] Expert Rules system. Performed By: #### 5 [id number], [id number] ####[facility] (DEFAULT)[address] [place] [address] UA w Culture if Ind Standard on 08-22-2020 Breakpoint UA Normal [facility] Comment on above: Performed By: #### 5 [id number], [id number] ####[facility] (DEFAULT)[address] [place] [address] Color (U) Yellow Normal [facility] Comment on above: Performed By: #### 5 [id number], [id number] ####[facility] (DEFAULT)[address] [place] [address] Culture? Not Indicated Invalid Interpretation Code [facility] Comment on above: Performed By: #### 5 [id number], [id number] ####[facility] (DEFAULT)[address] [place] [address] Glucose (U) [Mass/Vol] Negative [facility] Comment on above: Performed By: #### 5 [id number], [id number] ####[facility] (DEFAULT)[address] [place] [address] Ketones Ql (U) TRACE [facility] Comment on above: Performed By: #### 5 [id number], [id number] ####[facility] (DEFAULT)[address] [place] [address] Micro? Indicated Invalid Interpretation Code [facility] Comment on above: Performed By: #### 5 [id number], [id number] ####[facility] (DEFAULT)[address] [place] [address] UA Bilirubin Negative Normal [facility] Comment on above: Performed By: #### 5 [id number], [id number] ####[facility] (DEFAULT)[address] [place] [address] UA Blood Negative Normal NEGATIVE [facility] Comment on above: Performed By: #### 5 [id number], [id number] ####[facility] (DEFAULT)[address] [place] [address] UA Clarity CLEAR Normal CLEAR [facility] Comment on above: Performed By: #### 5 [id number], [id number] ####[facility] (DEFAULT)[address] [place] [address] UA Leuk Est TRACE Abnormal NEGATIVE [facility] Comment on above: Performed By: #### 5 [id number], [id number] ####[facility] (DEFAULT)[address] [place] [address] UA Nitrite Positive Abnormal NEGATIVE [facility] Comment on above: Performed By: #### 5 [id number], [id number] ####[facility] (DEFAULT)[address] [place] [address] UA pH 7.0 Normal 5-8 [facility] Comment on above: Performed By: #### 5 [id number], [id number] ####[facility] (DEFAULT)[address] [place] [address] UA Protein Negative Normal NEGATIVE [facility] Comment on above: Performed By: #### 5 [id number], [id number] ####[facility] (DEFAULT)[address] [place] [address] UA Spec Grav 1.020 Normal 1.001-1.035 [facility] Comment on above: Performed By: #### 5 [id number], [id number] ####[facility] (DEFAULT)[address] [place] [address] UA Urobilinogen 0.2 mg/dL Normal 0.2-1.0 [facility] Comment on above: Performed By: #### 5 [id number], [id number] ####[facility] (DEFAULT)[address] [place] [address] Urine Source Clean Catch Normal [facility] Comment on above: Performed By: #### 5 [id number], [id number] ####[facility] (DEFAULT)[address] [place] [address] [place] 08-22-2020 Wet [place]. Send results to Dr. Rojas bar manager Negative for Trichimonas vaginalis. Negative for Yeast. [facility] Comment on above: Performed By: #### 1 [id number] ####[facility] (DEFAULT)[address] [place] [address] Consent Formson 03-30-2020 Consent Forms [id number] [facility]-30-2020 Provider Orders [id number] 1 [id number] .00[facility] Coding Summaryon 03-25-2020 Coding Summary CODING DATE: 03/25/2020 [facility] STATUS: Home PAYOR: Commercial Insurance ADMIT [...] Gely Slade Date Saved: 03/25/2020 09:00 am [facility] 2019 Novel Coronavirus (CoVI D-19), TERESE LCon 03-24-2020 SARS-CoV-2 (COVID-19) RNA TERESE+probe Ql (Unsp spec) Not detected Invalid Interpretation Code Not Detected [facility] Comment on above: Order Comment: [id number] [phone] Result Comment: This nucleic acid amplification test was developed and its performance characteristics determined by [employer]. Nucleic acid amplification tests include PCR and [...] this assay. Performed At: [facility] [address] [facility], [place] [id number] Iram Calvillo [facility] Ph:[phone] Performed By: #### 6 [id number] ####[facility] (DEFAULT)[address] [place] [address] Coding Summaryon 03-01-2020 Coding Summary CODING DATE: 03/01/2020 FINAL [facility] STATUS: Home PAYOR: Commercial Insurance ADMIT [...] Slade Date Saved: 03/01/2020 09:51 am Normal [facility] Vital Signs Date Time Vital Sign Value Performing Clinician Facility 03-27-2023 10:03-0500 Blood Pressure Location ELPIDIO HENSON [facility] 03-27-2023 10:03-0500 Body temperature 97.16 [degF] ELPIDIO HENSON [facility] 03-27-2023 10:03-0500 Diastolic blood pressure 84 mm[Hg] ELPIDIO HENSON [facility] 03-27-2023 10:03-0500 Heart rate 74 /min ELPIDIO HENSON [facility] 03-27-2023 10:03-0500 Systolic blood pressure 128 mm[Hg] [facility] En[facility] Date Encounter Type Care Provider Facility Start: 07-16-2023 End: 07-17-2023 ambulatory ELPIDIO HENSON Facility:[facility] Start: 07-16-2023 End: 07-16-2023 Patient encounter procedure ELPIDIO HENSON [facility] Start: 06-06-2023 End: 06-06-2023 ambulatory KATLYN MITCHELL Not Available Start: 05-28-2023 End: 05-28-2023 ambulatory KATLYN MITCHELL Not Available Start: 05-07-2023 ambulatory Eamon Garcia acility:[facility] Start: 05-02-2023 End: 05-03-2023 ambulatory Lowell MAYS Facility:[facility] Start: 05-02-2023 End: 05-02-2023 Patient encounter procedure Lowell MAYS [facility] Start: 04-23-2023 End: 04-23-2023 ambulatory SUMEET VISHAL Not Available Start: 04-18-2023 ambulatory Lowell MAYS Facility :CD:[id number] Start: 03-27-2023 End: 03-28-2023 ambulatory ELPIDIO HENSON Facility:[facility] Start: 03-27-2023 End: 03-27-2023 Patient encounter procedure ELPIDIO HENSON [facility] Start: 02-04-2023 ambulatory ELPIDIO HENSON Facility :[facility] Start: 11-26-2022 End: 11-26-2022 Emergency department patient visit [facility] Start: 01-23-2022 End: 01-23-[address] LOWELL ROJAS Facility:[facility] Start: 11-30-2021 End: 11-30-2021 ambulatory MEMO WOOD Facility:[facility] Start: 06-14-2021 End: 06-14-[address] EARNESTINE HUFF Facility:[facility] Procedures Date Procedure Procedure Detail Performing Clinician Start: 05-02-2023 Transurethral cystoscopy ELPIDIO HENSON Start: 05-06-2019 Hysterectomy ELPIDIO PENG Colonoscopy ELPIDIO HENSON Hysterectomy ELPIDIO HENSON Tonsillectomy ELPIDIO HENSON Immunizations Immunization Date Immunization Notes [facility] hepatitis B vaccine, adult dosage ELPIDIO NATIVIDAD [facility] 02-06-2002 hepatitis B vaccine, adult dosage ELPIDIO NATIVIDAD [facility] 01-07-2002 hepatitis B vaccine, adult dosage ELPIDIO NATIVIDAD [facility] 01-07-2002 measles, mumps and rubella virus vaccine ELPIDIO NATIVIDAD [facility] 09-03-1988 diphtheria, tetanus toxoids and acellular pertussis vaccine ELPIDIO NATIVIDAD [facility] 09-03-1988 Hib, unspecified formulation ELPIDIO NATIVIDAD [facility] 12-13-1986 diphtheria, tetanus toxoids and acellular pertussis vaccine ELPIDIO NATIVIDAD [facility] 12-12-1985 measles, mumps and rubella virus vaccine ELPIDIO NATIVIDAD [facility] 1984 diphtheria, tetanus toxoids and acellular pertussis vaccine ELPIDIO NATIVIDAD [facility] 1984 diphtheria, tetanus toxoids and acellular pertussis vaccine ELPIDIO HENSON [facility] 1984 diphtheria, tetanus toxoids and acellular pertussis vaccine ELPIDIO HENSON [facility] Payers Date Payer Category Payer Self-pay 2022 Unknown [id number] 1984 Unknown [id number] 2.16.84 [id number] 1984 Unknown [id number] 2.16.84 [id number] 1984 Unknown [id number] 2.16.84 0.1.704629.3.579.2.593 1984 Unknown [id number] 2.16.8 40.1.137076.3.579.2.173 1984 Unknown [id number] 2.16.84 0.1.972220.3.579.2.1259 1984 Unknown [id number] 2.16.840 .1.433969.3.579.2.1259 1984 Unknown [id number] 2.16.84 0.1.461252.3.579.2.1259 1984 Unknown [id number] 2.16.84 0.1.508155.3.579.2.1259 1984 Unknown [id number] 2.16.8 40.1.649911.3.579.2.727 1984 Unknown [id number] 2.16.8 40.1.342786.3.579.2.727 1984 Unknown [id number] 2.16.8 40.1.189318.3.579.2.727 1984 Unknown [id number] 2.16.8 40.1.779606.3.579.2.727 1959 Unknown [id number] 1959 Unknown [id number] Unknown [id number] 2.16.8 [id number] Social History Date Type Detail Facility Start: 03-27-2023 Tobacco smoking status Never [facility] Sex Assigned At Female [facility] Functional Status Date Assessment Result Facility 05-02-2023 Functional Status N/A [facility] 03-27-2023 Functional Status N/A [facility] Clinical Notes 03-22-2020 to 05-02-2023 Note Date & Type Note Facility 05-02-2023 Note [id number] [facility] 05-02-2023 Note Cystoscopy with Uret hral Dilation [...] you have a fever over 100 degrees [facility] 05-02-2023 Hospital Discharg e instructions Patient Education [...] Up Care 04/30/2023 10:52:47 With:ELPIDIO HENSON Address: [address] [place] [place] [address] [facility] (1) When:6 weeks Comments:Call for followup appointment [facility] 03-27-2023 Hospital Discharg e instructions Patient Education [...] including vitamins, herbs, eye drops, creams, and lqka-zwj-qlxpjcx medicines. Any problems you or family members [...] provider tells you to take them. Taking zhtj-gxp-xrmolxg medicines, vitamins, herbs, and supplements. Tests You [...] Follow these instructions at home: Medicines Take ayba-hdc-exystvj and prescription medicines only as told by [...] provider. Document Revised: 01/03/2022 Document Reviewed: 12/02/2020 [employer] Patient Education 2022 PPT [facility]. 03/27/2023 10:54:11 Overactive Bladder, Adult Overactive Bladder, [...] your health care provider. General instructions Take sisu-dou-lpawmss and prescription medicines only as told by [...] provider. Document Revised: 01/09/2021 Document Reviewed: 01/09/2021 [employer] Patient Education 2022 PPT [facility]. Follow Up Care 02/04/2023 08:51:15 With:ELPIDIO HENSON PA-C, URL Address: [address] [address] [id number] When: Unknown Comments:sched cysto/poss UD [facility] 02-15-2021 Note Education Materials Infectious Disease COVID-19: [...] provider. Document Revised: 04/07/2020 Document Reviewed: 04/07/2020 [employer] Patient Education ? 2020 PPT [facility]. COVID-19: How to Protect Yourself and Others Know how it spreads ? There is currently no vaccine to prevent coronavirus disease 2019 (COVID-19). ? The best way to prevent illness is to avoid being exposed to this virus. ? The virus is thought to spread mainly from mmchvh-ic-wencpl. ? Between people who are in close [...] are not readily available, use a hand director of accreditation that contains at least 60% alcohol. Cover [...] are at higher risk of getting very sick.www.cdc.gov/coronavirus/20 19-ncov/mtop-pvchq-sgmzwuawzbu/ jiixxn-jf-hlrqwc-risk.html Cover your mouth and nose with a [...] available, clean your hands with a hand director of accreditation that contains at least 60% alcohol. Clean and disinfect ? Clean AND disinfect frequently touched surfaces daily. This includes tables, doorknobs, light switches, countertops, handles, desks, phones, keyboards, toilets, faucets, and sinks. www.cdc.gov/coronavirus/2019-nc ov/blzmees-gwurflr-voxo/disinfe jphto-cxha-wfmq.html ? If surfaces are dirty, clean them: Use detergent or soap and water prior to disinfection. ? Then, use a household disinfectant. You can see a list of [facility]-registered household disinfectants here. cdc.gov/coronavirus 01/06/2020 This information is not intended to replace advice given to you by your health care provider. Make sure you discuss any questions you have with your health care provider. Document Revised: 01/14/2020 Document Reviewed: 11/12/2019 [employer] Patient Education ? 2019 PPT [facility]. COVID-19 Frequently Asked Questions COVID-19 (coronavirus disease) is an infection that is caused by a virus (more content not included)... [facility] 08-22-2020 Note Education Materials Obstetrics and Gynecology [...] this condition includes: ? Antibiotic medicine. ? Tjem-eol-kcoxlax medicines to treat discomfort. ? Drinking enough [...] these instructions at home: Medicines ? Take hikl-tgh-kmqqusa and prescription medicines only as told by [...] provider. This i (more content not included)... [facility] 03-22-2020 Note Nasal swab performed without complication. Patient tolerated well. Education given. Patient verbalized understanding. [Electronically Signed on: 03/22/2020 14:52 EST] Millicent Galdamez RN [Verified on: 03/22/2020 14:52 EST] Millicent Galdamez RN [facility] Evaluation + Plan note No data available for this section [facility] Evaluation + Plan note Future Appointments Appointment Date:07/16/2023 09:00:00 AM Scheduled Provider:ELPIDIO HENSON PA-C Location:[facility] Appointment Type:URO Office Visit [facility] Hospital Discharge instructions No data available for this section [facility] Progress note No data available for this section [facility] Summary Purpose Family History No Family History [...] section and content) DATE CREATED AUTHOR 02/28/2021 [facility] DATE CREATED AUTHOR AUTHOR'S ORGANIZ ATION 02/04/2022 [facility] DATE CREATED AUTHOR AUTHOR'S ORGANIZ ATION 11/26/2022 [facility] DATE CREATED AUTHOR AUTHOR'S ORGANIZ ATION 05/29/2023 [facility] EPIC DATE CREATED AUTHOR AUTHOR'S ORGANIZ ATION 06/07/2023 [facility] EPIC DATE CREATED AUTHOR AUTHOR'S ORGANIZ ATION 07/18/2023 [facility] DATE CREATED AUTHOR AUTHOR'S ORGANIZ ATION 08/03/2023 [facility] Patient Care team informatio n (unrecognized section and content) Personnel Name: Sumeet VÁSQUEZ DO Address: Address: [address] , [place] [address] Personnel Name: SAVANNAH RODRIGUEZ MD Address: Address: [address] [place] [address] Personnel Name: SAVANNAH RODRIGUEZ MD Address: Address: [address] [place] [address] FOR RECORDS PERTAINING TO PATIENTS WHO ARE [...] BE BASED ON THE PRIMARY CLINICAL RECORDS. [facility]. provides no warranty or guarantee of the accuracy or completeness of information in this document.
[2023-08-30 10:10] LABS: Age Gdln ACOG Testing Note (.); HPV Aptima Negative (Negative); IGP, Aptima HPV, rfx 16/18,45 Note (.)
== END 2023-08-26 22:09 | disposition home or self-care (01) ==
LOC: LAB 22:08
PROVIDERS: Visit Provider Obstetrics & Gynecology
DX: Z01.419 Encounter for gynecological examination (general) (routine) without abnormal findings (principal)
CPT/HCPCS: 87624; G0145

== ENCOUNTER 2023-08-27 12:38 | Outpatient (OUT) | payer BC, SELFPAY ==
--- OUTSIDE RECORDS SUMMARY | 2023-08-27 12:49 | XMS_ITS | CCD ---
Author Organization [facility] Care Team Providers Care Big Machine Consultant Name Role Phone MEMO WOOD Admitting [...] Consulting Unavailable Sumeet VÁSQUEZ Primary Care Physician JENNIFER, SAVANNAH Underwood Primary Care Physician KATLYN [...] levoFLOXacin; Translations: [Levaquin] Drug Allergy 3 [facility] (4 sources) Bee/Wasp/Ant venom; Translations: [Bee Stings] Propensity to adverse reactions to substance Swelling (finding) [facility] (3 sources) levoFLOXacin; Translations: [levofloxacin] Drug Allergy [facility] (1 source) levoFLOXacin Drug Allergy [facility] Repository Medications Current Medications Medication Drug [...] day(s), # 9 tab(s), Refills(s) 0, [id number], cm, 03/27/23 10:11:00 EST, Height/Length [...] afterwards, # 2 cap(s), Refills(s) 0, [id number], 157, cm, 03/27/23 10:11:00 EST, Height/Length [...] te Episodic/Chronic Other aftercare (1 source) 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 therapy; Translations: [OTH MANAGER DISH CURRENT DRUG THERAPY] Onset: 06-15-2021 Episodic Residual codes; unclassified (1 source) Acquired absence of both cervix and uterus; Translations: [ACQUIRED ABSENCE BOTH CERVIX AND UTERUS] Onset: 06-15-2021 Episodic Results Test Name Value Interpretation Reference Range Facility Consent for Procedure/Surger yon 05-02-2023 Consent for Procedure/Surgery [id number]# 1.00TIFF Normal [facility] Consent for Treatmenton 04-06 Consent for Treatment [id number]#1 .00TIFF Normal [facility] Inpatient Patient Summaryon 05-02-2023 Inpatient Patient Summary [address] [address] Clinical Summary Person Information Name: TALHA SINGLETON Age: 37 Years : 1985 Sex: Female PCP: SAVANNAH RODRIGUEZ MD Marital Status: Race: Other Race Ethnicity: Non- or Language: Korean Visit Id: Visit Reason: OVER ACTIVE BLADDER, INCOMPLETE BLADDER EMPTY Speciality: Acuity: Enc Type: Outpatient Med Service: Surgery Arrival: 05/02/2023 12:09:38 Discharge: Dispo Type: Address: [address] [place] [phone] Provider Notes: Diagnosis: Problems Active Ovarian cyst [...] Follow up: With: Address: When: ELPIDIO HENSON [address] [place] [address] [place] [id number] [facility] (0) Within 6 weeks Comments: Call for followup appointment Type Location Start Finish [facility] URO Office Visit [facility] [place] 07/16/2023 9:00 AM 07/16/2023 9:15 AM Confirmed Patient Education Information: EU - Cystoscopy with Urethral Dilation Discharge Instructions (Custom) [facility] IntraOperative Documentson 1 07-03-2022 IntraOperative Documents [id number]# 1.00TIFF [facility] Main OR Intraoperative Recor don 05-02-2023 Main OR Intraoperative Record IntraOp Document Type FTURO Summary Primary Physician: Lowell MAYS MD Finalized Date/Time: 05/02/23 13:28:39 Pt. Name: TALHA SINGLETON/Sex: 1985 Female Med Rec #: [id number] Physician: Lowell MAYS MD Financial #: [id number] Pt. Type: O Room/Bed: / Admit/Disch: 05/02/23 [...] Rock Barron Role Performed Surgeon - Primary Neuropsychiatric Aide - Primary Scrub - Primary Time In [...] 13:27 Shilpi Epperson RN 05/02/23 13:28 Normal [facility] Main OR Preoperative Recordo n 05-02-2023 Main OR Preoperative Record Holding Area Document Type FTURO Summary Primary Physician: Lowell MAYS MD Finalized Date/Time: 05/02/23 12:31:22 Pt. Name: TALHA SINGLETON/Sex: 1985 Female Med Rec #: [id number] Physician: Lowell MAYS MD Financial #: [id number] Pt. Type: O Room/Bed: / Admit/Disch: 05/02/23 [...] 12:29 Jeanette Rodríguez RN 05/02/23 12:31 Normal [facility] Operative Reporton Operative Report Patient: TALHA SINGLETON Age: 37 years Sex: Female : 1985 Associated Diagnoses: None Author: Lowell MAYS MD Procedure Operative Information Details: Date/ Time: 05/02/2023 13:30:00. Pre-Op Dx: Unspecified urethral stricture, female ([id number]-AW N35.92, Working, Medical), Urinary retention (IJY01-PI R33.9, Working, Medical). Post-Op Dx: Same. Anesthesia [...] urine. The Urethra was dilated to: 30 [place] w/ sounds, This causes minimal bleeding.. Devices Implanted: None. Removal: Cystoscope is removed, The patient tolerated it well. Postoperative Information Discharge: Patient is discharged home with antibiotic coverage, Follow up arranged, Follow up with Sally Henson PA-C in about six weeks. . Normal [facility] Comment on above: Result Comment: Elec tronically Signed By: Lowell MAYS MD\.br\Date and Time Signed: 05/02/23 13:35 EST Outpatient Surgery Discharge Instructionon 05-02-2023 Outpatient Surgery Discharge Instruction [address] [address] Patient Discharge Instructions PERSON INFORMATION [...] Follow up: With: Address: When: ELPIDIO HENSON [address] [place], [place] [address]Jasb[place], [place] [phone] [facility] (1) Within 6 weeks Comments: Call for followup appointment Type Location Start [facility] URO Office Visit [facility] CARLOTTA Zafar 07/16/2023 9:00 AM 07/16/2023 9:15 [...] to serve you. Thank you for choosing [facility] Provider Letteron 04-30-2023 Provider Letter April 30, 2023 TALHA SINGLETON [address] [place] [address] : 1985 To Whom It May Concern, Please excuse above patient from work. Date of Illness: From: 04/19/23 To: 05/07/23 May Return to Work On: 05/07/23 Restrictions: None Sincerely, Lian Hummel CMA/ Dr Lowell Mays MD [facility] Comment on above: Other Comment: WRONG PT! Ambulatory Visit Summaryon 1 05-27-2022 Ambulatory Visit Summary TALHA SINGLETON :1985 Visit Date:03/27/2023 Ambulatory Visit Instructions Your Diagnosis Feeling of incomplete bladder emptying OAB (overactive bladder) History of kidney stones Former smoker Ovarian cyst Tests Performed Urnls Dip Stick Auto w/o Microscopy POC 68041 Your Care Team Attending Physician - ELPIDIO [...] UD Where: [address] [place] [address] [phone] Medications What How Much When Instructions Unchanged busPIRone (busPIRone 7.5 mg oral tablet) Contact prescribing physician if questions or concerns Unchanged risperidone (risperidone 0.5 mg Tab) 1 Tablets By Mouth 2 times a day Contact prescribing physician if questions or concerns Test Results Urnls Dip Stick Auto w/o Microscopy POC 75347 (03/27/2023) Bilirubin Urine Dipstick - Negative Blood Urine Dipstick - Negative Glucose Urine Dipstick - Negative Ketones Urine Dipstick - Negative Leukocytes Urine Dipstick - Negative Nitrite Urine Dipstick - Negative Protein Urine Dipstick - Negative Specific [place] Urine Dipstick - <=1.005 Urine Appearance Urine [...] including vitamins, herbs, eye drops, creams, and oyrl-igq-kbntwwd medicines. ? Any problems you or family [...] tells you to take them. ? Taking vvdb-ihx-qvocmtf medicines, vitamins, herbs, and supplements. Tests You may have an exam or testing, such as: ? X-rays of the bladder, urethra, or kidneys. ? CT scan of the abdomen or pelvis. ? Urine tests to check for signs of infection. (more content not included)... Normal [facility] Consultation Noteon 03-27-20 Consultation Note [id number]# 1.00TIFF Normal [facility] Formson 03-27-2023 Forms [id number]#1. 00TIFF [facility] Patient Educationon 03-27-20 Patient Education Obstetrics [...] health care provider. General instructions ? Take jykt-rsj-cvxezfx and prescription medicines only as told by [...] monitor yo (more content not included)... 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 Sumeet Vásquez DO for urinary retention and hx of kidney stones. Last stone was passed was 2009 she thinks Never seen in our office before. CT AP wo con done 08/24/20 at [facility]. CT AP wo con and KUB done 06/14/21 at [facility]. US pelvis w/ transvaginal done 02/05/23 at [facility]. 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 Feeling of incomplete bladder emptying (R39.14: [...] tid x3days after cysto. Rx sent to [facility]. -Double void maneuvers Ordered: Body Mass Index (BMI) documented 3008F Body Mass Index (BMI) documented 3008F Current tobacco non-user 1036F Current tobacco non-user 1036F Depression Screening Negative 3352F Depression Screening Negative 3352F E&M of New Patient Moderate 45-59 Min 06871 Influenza immunization status assessed 1030F Influenza immunization [...] Ordered: Body (more content not included)... Normal [facility] Comment on above: Result Comment: Elec tronically Signed By: ELPIDIO HENSON PA-C\.br\Date and Time Signed: 03/27/23 11:32 EST\.br\Electronically Co-Signed By: Era Villegas\.br\Date and Time Co-Signed: 03/27/23 11:16 EST PAP ACOG PANEL 2: 30 to 65on 01-29-2022 . . Normal [facility] Comment on above: Result Comment: Perf ormed at: WB Performed By: #### 4 [id number] #### [facility] [address] [address] [address] Ab Sloan Age Gdln ACOG Testing 30-65 Normal [facility] Comment on above: Performed By: #### 4 [id number] #### [facility] [address] [address] [address] Ab Sloan DIAGNOSIS: Comment Normal [facility] Comment on above: Result Comment: NEGA TIVE FOR INTRAEPITHELIAL LESION OR MALIGNANCY. SHIFT IN CRISTIN SUGGESTIVE OF BACTERIAL VAGINOSIS. Performed at: WB Performed By: #### 4 [id number] #### [facility] [address] [address] [address] Ab Sloan HPV Aptima Negative Normal Negative [facility] Comment on above: Result Comment: This nucleic acid amplification test detects fourteen high-risk HPV types (16,18,31,33,35,39,45,51,52,56,58,59,66,68) without differentiation. Performed at: =G Performed By: #### 4 [id number] #### [facility] [address] [place] [address] Dr. Ab Sloan Methodology: Comment Normal [facility] Comment on above: Result Comment: This liquid based ThinPrep(R) pap test was screened with the use of an image guided system. Performed at: WB Performed By: #### 4 [id number] #### [facility] [address] [place] [address] Dr. Ab Sloan Note: Comment Normal [facility] Comment on above: Result Comment: The Pap smear is a screening test designed to aid in the detection of premalignant and malignant conditions of the uterine cervix. It is not a diagnostic procedure and should not be used as the sole means of detecting cervical cancer. Both false-positive and false-negative reports do occur. . Performed at: WB Performed By: #### 4 [id number] #### [facility] [address] [place] [address] Dr. Ab Sloan Performed by: Comment Normal [facility] Comment on above: Result Comment: Ashley Rider, Hazmat Tanker Driver (ASCP) Performed at: WB Performed By: #### 4 [id number] #### [facility] [address] [place] [address] Dr. Ab Sloan Specimen adequacy: Comment Normal [facility] Comment on above: Result Comment: Sati sfactory for evaluation. No endocervical component is identified. Performed at: WB Performed By: #### 4 [id number] #### [facility] [address] [place] [address] Dr. Ab Sloan VAGINITIS/VAGINOSIS DNA PROB [place] 01-24-2022 Betsy species Negative Normal Negative [facility] Comment on above: Performed By: #### V AGINT #### [facility] [address] [place] [address] Dr. Ab Sloan Gardnerella vaginalis Positive Abnormal Negative [facility] Comment on above: Performed By: #### V AGINT #### [facility] [address] [place] [address] Dr. Ab Sloan Trichomonas vaginalis Negative Normal Negative [facility] Comment on above: Performed By: #### V AGINT #### [facility] [address] [place] [address] Dr. Ab Sloan PROCALCITONINon 12-04-2021 Procalcitonin <0.02 Normal 0.00-0.08 [facility] Comment on above: Result Comment: . [...] are obtained. Performed By: #### P CTLC ####[facility] [address] [address]Dr. Ab Sloan CBC AUTO DIFFon 11-30-2021 BASO # 0.0 103/ul Normal 0.0-0.1 [facility] Comment on above: Performed By: #### C BC #### [facility] [address] [place] [address] Dr. Ab Sloan Basophils/100 WBC (Bld) 0.5 % Normal 0.2-2.0 [facility] Comment on above: Performed By: #### C BC #### [facility] [address] [place] [address] Dr. Ab Sloan EO # 0.1 103/ul Normal 0.0-0.7 [facility] Comment on above: Performed By: #### C BC #### [facility] [address] [place] [address] Dr. Ab Sloan Eosinophils/100 WBC (Bld) 0.8 % Critically low 0.9-7.0 [facility] Comment on above: Performed By: #### C BC #### [facility] [address] [place] [address] Dr. Ab Sloan Erythrocyte distribution width (RBC) [Ratio] 12.2 % Normal 11.0-15.0 [facility] Comment on above: Performed By: #### C BC #### [facility] [address] [place] [address] Dr. Ab Sloan Hematocrit (Bld) [Volume fraction] 38.2 % Normal 36.0-48.0 [facility] Comment on above: Performed By: #### C BC #### [facility] [address] [place] [address] Dr. Ab Sloan Hemoglobin (Bld) [Mass/Vol] 13.1 g/dL Normal 12.0-16.0 [facility] Comment on above: Performed By: #### C BC #### [facility] [address] [place] [address] Dr. Ab Sloan IG # 0.01 10e3/ul Normal 0.00-0.03 [facility] Comment on above: Performed By: #### C BC #### [facility] [address] [place] [address] Dr. Ab Sloan IG % 0.2 % Normal 0.0-0.5 [facility] Comment on above: Performed By: #### C BC #### [facility] [address] [place] [address] Dr. Ab Sloan LYMPH # 1.9 103/ul Normal 1.2-3.8 [facility] Comment on above: Performed By: #### C BC #### [facility] [address] [place] [address] Dr. Ab Sloan Lymphocytes/100 WBC (Bld) 31.2 % Normal 20.5-60.0 [facility] Comment on above: Performed By: #### C BC #### [facility] [address] [place] [address] Dr. Ab Sloan MANUAL DIFF REQ NO Normal [facility] Comment on above: Performed By: #### C BC #### [facility] [address] [place] [address] Dr. Ab Sloan MCH (RBC) [Entitic mass] 31.0 pg Normal 26.7-34.0 [facility] Comment on above: Performed By: #### C BC #### [facility] [address] [place] [address] Dr. Ab Sloan MCHC (RBC) [Mass/Vol] 34.3 g/dL Normal 29.9-35.2 [facility] Comment on above: Performed By: #### C BC #### [facility] [address] [place] [address] Dr. Ab Sloan MCV (RBC) [Entitic vol] 90.5 fL Normal 81.0-99.0 [facility] Comment on above: Performed By: #### C BC #### [facility] [address] [place] [address] Dr. Ab Sloan MONO # 0.4 103/ul Normal 0.3-0.8 [facility] Comment on above: Performed By: #### C BC #### [facility] [address] [place] [address] Dr. Ab Sloan Monocytes/100 WBC (Bld) 6.2 % Normal 1.7-12.0 [facility] Comment on above: Performed By: #### C BC #### [facility] [address] [place] [address] Dr. Ab Sloan NEUT # 3.7 103/ul Normal 1.4-6.5 [facility] Comment on above: Performed By: #### C BC #### [facility] [address] [place] [address] Dr. Ab Sloan Neutrophils/100 WBC (Bld) 61.1 % Normal 43.0-75.0 [facility] Comment on above: Performed By: #### C BC #### [facility] [address] [address] [address] Ab Sloan Platelet mean volume (Bld) [Entitic vol] 12.0 fL Normal 9.5-13.5 [facility] Comment on above: Performed By: #### C BC #### [facility] [address] [address] [address] Ab Sloan PLT 198 103/ul Normal 150-450 [facility] Comment on above: Performed By: #### C BC #### [facility] [address] [address] [address] Ab Sloan RBC 4.22 106/ul Normal 4.20-5.40 [facility] Comment on above: Performed By: #### C BC #### [facility] [address] [address] [address] Ab Sloan WBC 6.1 103/ul Normal 4.0-11.0 [facility] Comment on above: Performed By: #### C BC #### [facility] [address] [address] [address] Ab Sloan CRPon 11-30-2021 CRP [Mass/Vol] mg/L Normal <=1.0 [facility] Comment on above: Performed By: #### B MP, CRP #### [facility] [address] [address] [address] Ab Sloan DRUG SCREEN RAPID (URINE)on 11-30-2021 AMP Negative Normal NEGATIVE [facility] Comment on above: Performed By: #### D TULIO ERUR ####[facility] [address] [id number] Sloan BAR Negative Normal NEGATIVE [facility] Comment on above: Performed By: #### D TULIO ERUR ####[facility] [address] [address]DrJasbir Sloan BUP Negative Normal NEGATIVE [facility] Comment on above: Performed By: #### D TULIO, ERUR ####[facility] [address] [address]DrJasbir Sloan BZO Negative Normal NEGATIVE [facility] Comment on above: Performed By: #### Rosi ANTUNEZ, ERUR ####[facility] [address] [place], [place] [address]Dr. Ab Sloan LESTER Negative Normal NEGATIVE [facility] Comment on above: Performed By: #### D TULIO, ERUR ####[facility] [address] [place], [place] [address]Dr. Ab Sloan CUT-OFFS SEE BELOW Normal [facility] Comment on above: Result Comment: AMP [...] ng/mL Performed By: #### Rosi ANTUNEZ, ERUR ####[facility] [address] [place], [place] [address]Dr. Ab Sloan DRUG CUT HEADER DRUG CLASS TEST SYSTEM CUT-OFF CONCENTRATIONS ARE FOLLOWS: Normal [facility] Comment on above: Performed By: #### Rosi ANTUNEZ, ERUR ####[facility] [address] [place], [place] [address]Dr. Ab Sloan mAMP Negative Normal NEGATIVE [facility] Comment on above: Performed By: #### Rosi ANTUNEZ, ERUR ####[facility] [address] [place], [place] [address]Dr. Ab Sloan MTD Negative Normal NEGATIVE [facility] Comment on above: Performed By: #### Rosi ANTUNEZ, ERUR ####[facility] [address] [place], [place] [address]Dr. Ab Sloan OPI Negative Normal NEGATIVE [facility] Comment on above: Performed By: #### D RUGRPD, ERUR ####[facility] [address] [address]Dr. Yilan Sloan OXY Negative Normal NEGATIVE [facility] Comment on above: Performed By: #### D TULIO, ERUR ####[facility] [address] [address]Dr. Ab Sloan PCP Negative Normal NEGATIVE [facility] Comment on above: Performed By: #### D TULIO, ERUR ####[facility] [address] [address]Dr. Ab Luther PPX Negative Normal NEGATIVE [facility] Comment on above: Performed By: #### D TULIO, ERUR ####[facility] [address] [address]Dr. Ab Sloan TCA Negative Normal NEGATIVE [facility] Comment on above: Performed By: #### Rosi ANTUNEZ, ERUR ####[facility] [address] [address]Dr. Ab Sloan THC Negative Normal NEGATIVE [facility] Comment on above: Performed By: #### Rosi ANTUNEZ, ERUR ####[facility] [address] [place], [place] [address]Dr. Ab Sloan ER URINE PROFILEon 2 Bilirubin Ql (U) Negative Normal NEGATIVE [facility] Comment on above: Performed By: #### Rosi ANTUNEZ, ERUR ####[facility] [address] [address]Dr. Ab Sloan Clarity (U) CLEAR Normal CLEAR [facility] Comment on above: Performed By: #### D TULIO, ERUR ####[facility] [address] [address]Dr. Ab Sloan Color (U) LT. YELLOW Normal YELLOW [facility] Comment on above: Performed By: #### D TULIO, ERUR ####[facility] [address] [address]Dr. Ab Sloan ERUAHD A micrscopic examination will be performed if indicated. Normal [facility] Comment on above: Performed By: #### Rosi ANTUNEZ, ERUR ####[facility] [address] [address]Dr. Ab Sloan Glucose Ql (U) Negative Normal NEGATIVE [facility] Comment on above: Performed By: #### Rosi ANTUNEZ, ERUR ####[facility] [address] [address]Dr. Ab Sloan Hemoglobin Ql (U) Negative Normal NEGATIVE [facility] Comment on above: Performed By: #### Rosi ANTUNEZ, ERUR ####[facility] [address] [address]Dr. Ab Sloan Ketones Ql (U) Negative Normal NEGATIVE [facility] Comment on above: Performed By: #### Rosi ANTUNEZ, ERUR ####[facility] [address] [address]Dr. Ab Sloan LEUKOCYTES Negative Normal NEGATIVE [facility] Comment on above: Performed By: #### Rosi ANTUNEZ ERUR ####[facility] [address] [place], [place] [address]Dr. Ab Sloan Nitrite Ql (U) Negative Normal NEGATIVE [facility] Comment on above: Performed By: #### Rosi ANTUNEZ ERUR ####[facility] [address] [place], [place] [address]Dr. Ab Sloan pH (U) 6.0 [pH] Normal 5-9 [facility] Comment on above: Performed By: #### Rosi ANTUNEZ ERUR ####[facility] [address] [place], [place] [address]Dr. Ab Sloan SPEC GRAVITY 1.020 Normal 1.005-<=1.025 [facility] Comment on above: Performed By: #### Rosi ANTUNEZ ERUR ####[facility] [address] [place], [place] [address]Dr. Ab Sloan UA PROTEIN Negative Normal NEGATIVE/ TRACE [facility] Comment on above: Performed By: #### Rosi ANTUNEZ ERUR ####[facility] [address] [place], [place] [address]DrJasbir Sloan UR MICRO IND NOT INDICATED Normal [facility] Comment on above: Performed By: #### D TULIO, ERUR ####[facility] [address] [place] [id number] Sloan Urobilinogen Qn (U) 0.2 {Lamonte'U}/dL Normal 0.2 - 1. 0 [facility] Comment on above: Performed By: #### D TULIO, ERUR ####[facility] [address] [place] [id number] Sloan PROF CHEM 8 (BAS METB)on Anion gap [Moles/Vol] 11.6 mmol/L Normal [facility] Comment on above: Performed By: #### B MP, CRP #### [facility] [address] [place] [address] [address] Ab Sloan Calcium [Mass/Vol] 8.8 mg/dL Normal 8.5-10.1 [facility] Comment on above: Performed By: #### B MP, CRP #### [facility] [address] [address] [address] Ab Sloan Chloride [Moles/Vol] 104 mmol/L Normal 98-107 [facility] Comment on above: Performed By: #### B MP, CRP #### [facility] [address] [address] [address] Ab Sloan CO2 [Moles/Vol] 26.9 mmol/L Normal 21.0-32.0 [facility] Comment on above: Performed By: #### B MP, CRP #### [facility] [address] [address] [address] Ab Sloan Creatinine [Mass/Vol] 0.91 mg/dL Normal 0.55-1.02 [facility] Comment on above: Performed By: #### B MP, CRP #### [facility] [address] [address] [address] Ab Sloan EGFR-AF BAHAMIAN >60 Normal >=60 [facility] Comment on above: Performed By: #### B MP, CRP #### [facility] [address] [place] [address] Dr. Ab Sloan EGFR-NON AF BAHAMIAN >60 Normal >=60 [facility] Comment on above: Performed By: #### B MP, CRP #### [facility] [address] [address] [address] Ab Sloan Glucose [Mass/Vol] 105 mg/dL Normal 74-106 [facility] Comment on above: Performed By: #### B MP, CRP #### [facility] [address] [address] [address] Ab Sloan Potassium [Moles/Vol] 3.5 mmol/L Normal 3.5-5.1 [facility] Comment on above: Performed By: #### B MP, CRP #### [facility] [address] [place] [address] Dr. Ab Sloan Sodium [Moles/Vol] 139 mmol/L Normal 136-145 [facility] Comment on above: Performed By: #### B MP, CRP #### [facility] [address] [place] [address] Dr. Ab Sloan Urea nitrogen [Mass/Vol] 14.0 mg/dL Normal 7.0-18.0 [facility] Comment on above: Performed By: #### B MP, CRP #### [facility] [address] [place] [address] Dr. Ab Sloan Urea nitrogen/Creatinine [Mass ratio] 15.4 mg/mg Normal [facility] Comment on above: Performed By: #### B MP, CRP #### [facility] [address] [place] [address] Dr. Ab Sloan CBC AUTO DIFFon 06-14-2021 BASO # 0.0 103/ul Normal 0.0-0.1 [facility] Comment on above: Performed By: #### C BC #### [facility] [address] [place] [address] Dr. Ab Sloan Basophils/100 WBC (Bld) 0.6 % Normal 0.2-2.0 [facility] Comment on above: Performed By: #### C BC #### [facility] [address] [place] [address] Dr. Ab Sloan EO # 0.2 103/ul Normal 0.0-0.7 [facility] Comment on above: Performed By: #### C BC #### [facility] [address] [place] [address] Dr. Ab Sloan Eosinophils/100 WBC (Bld) 3.1 % Normal 0.9-7.0 [facility] Comment on above: Performed By: #### C BC #### [facility] [address] [place] [address] Dr. Ab Sloan Erythrocyte distribution width (RBC) [Ratio] 12.7 % Normal 11.0-15.0 [facility] Comment on above: Performed By: #### C BC #### [facility] [address] [place] [address] Dr. Ab Sloan Hematocrit (Bld) [Volume fraction] 36.9 % Normal 36.0-48.0 [facility] Comment on above: Performed By: #### C BC #### [facility] [address] [place] [address] Dr. Ab Sloan Hemoglobin (Bld) [Mass/Vol] 12.1 g/dL Normal 12.0-16.0 [facility] Comment on above: Performed By: #### C BC #### [facility] [address] [place] [address] Dr. Ab Sloan IG # 0.01 10e3/ul Normal 0.00-0.03 [facility] Comment on above: Performed By: #### C BC #### [facility] [address] [place] [address] Dr. Ab Sloan IG % 0.2 % Normal 0.0-0.5 [facility] Comment on above: Performed By: #### C BC #### [facility] [address] [place] [address] Dr. Ab Sloan LYMPH # 2.1 103/ul Normal 1.2-3.8 [facility] Comment on above: Performed By: #### C BC #### [facility] [address] [place] [address] Dr. Ab Sloan Lymphocytes/100 WBC (Bld) 40.2 % Normal 20.5-60.0 [facility] Comment on above: Performed By: #### C BC #### [facility] [address] [place] [address] Dr. Ab Sloan MANUAL DIFF REQ NO Normal [facility] Comment on above: Performed By: #### C BC #### [facility] [address] [place] [address] Dr. Ab Sloan MCH (RBC) [Entitic mass] 30.0 pg Normal 26.7-34.0 [facility] Comment on above: Performed By: #### C BC #### [facility] [address] [place] [address] Dr. Ab Sloan MCHC (RBC) [Mass/Vol] 32.8 g/dL Normal 29.9-35.2 [facility] Comment on above: Performed By: #### C BC #### [facility] [address] [place] [address] Dr. Ab Sloan MCV (RBC) [Entitic vol] 91.6 fL Normal 81.0-99.0 [facility] Comment on above: Performed By: #### C BC #### [facility] [address] [place] [address] Dr. Ab Sloan MONO # 0.4 103/ul Normal 0.3-0.8 [facility] Comment on above: Performed By: #### C BC #### [facility] [address] [place] [address] Dr. Ab Sloan Monocytes/100 WBC (Bld) 7.5 % Normal 1.7-12.0 [facility] Comment on above: Performed By: #### C BC #### [facility] [address] [place] [address] Dr. Ab Sloan NEUT # 2.5 103/ul Normal 1.4-6.5 [facility] Comment on above: Performed By: #### C BC #### [facility] [address] [address] [address] Ab Sloan Neutrophils/100 WBC (Bld) 48.4 % Normal 43.0-75.0 [facility] Comment on above: Performed By: #### C BC #### [facility] [address] [place] [address] Dr. Ab Sloan Platelet mean volume (Bld) [Entitic vol] 11.1 fL Normal 9.5-13.5 [facility] Comment on above: Performed By: #### C BC #### [facility] [address] [address] [address] Ab Sloan PLT 186 103/ul Normal 150-450 [facility] Comment on above: Performed By: #### C BC #### [facility] [address] [place] [address] Dr. Ab Sloan RBC 4.03 106/ul Critically low 4.20-5.40 [facility] Comment on above: Performed By: #### C BC #### [facility] [address] [place] [address] Dr. Ab Sloan WBC 5.2 103/ul Normal 4.0-11.0 [facility] Comment on above: Performed By: #### C BC #### [facility] [address] [place] [address] ABD/PELVIS WO CONon [...] TIBURCIO OROZCO Date: 2021-06-14 10:26 Normal [facility] ER URINE PROFILEon 2 Bilirubin Ql (U) Negative Normal NEGATIVE [facility] Comment on above: Performed By: #### E RUR #### [facility] [address] [place] [address] Dr. Ab Sloan Clarity (U) CLEAR Normal CLEAR [facility] Comment on above: Performed By: #### E RUR #### [facility] [address] [place] [address] Dr. bA Sloan Color (U) YELLOW Normal YELLOW [facility] Comment on above: Performed By: #### E RUR #### [facility] [address] [place] [address] Dr. Ab MARCUM A micrscopic examination will be performed if indicated. Normal [facility] Comment on above: Performed By: #### E RUR #### [facility] [address] [place] [address] Dr. Ab Sloan Glucose Ql (U) Negative Normal NEGATIVE [facility] Comment on above: Performed By: #### E RUR #### [facility] [address] [place] [address] Dr. Ab Sloan Hemoglobin Ql (U) Negative Normal NEGATIVE [facility] Comment on above: Performed By: #### E RUR #### [facility] [address] [place] [address] Dr. Ab Sloan Ketones Ql (U) Negative Normal NEGATIVE [facility] Comment on above: Performed By: #### E RUR #### [facility] [address] [place] [address] Dr. Ab Sloan LEUKOCYTES Negative Normal NEGATIVE [facility] Comment on above: Performed By: #### E RUR #### [facility] [address] [place] [address] Dr. Ab Sloan Nitrite Ql (U) Negative Normal NEGATIVE [facility] Comment on above: Performed By: #### E RUR #### [facility] [address] [place] [address] Dr. Ab Sloan pH (U) 6.0 [pH] Normal 5-9 [facility] Comment on above: Performed By: #### E RUR #### [facility] [address] [place] [address] Dr. Ab Sloan SPEC GRAVITY >=1.030 Abnormal 1.005-<=1.025 [facility] Comment on above: Performed By: #### E RUR #### [facility] [address] [place] [address] Dr. Ab Sloan UA PROTEIN Negative Normal NEGATIVE/ TRACE [facility] Comment on above: Performed By: #### E RUR #### [facility] [address] [place] [address] Dr. Ab Sloan UR MICRO IND NOT INDICATED Normal [facility] Comment on above: Performed By: #### E RUR #### [facility] [address] [place] [address] Dr. Ab Sloan Urobilinogen Qn (U) 0.2 {Lamonte'U}/dL Normal 0.2 - 1. 0 [facility] Comment on above: Performed By: #### E RUR #### [facility] [address] [place] [address] Dr. Ab Sloan PROF CHEM 8 (BAS METB)on Anion gap [Moles/Vol] 10.3 mmol/L Normal [facility] Comment on above: Performed By: #### B MP #### [facility] [address] [place] [address] Dr. Ab Sloan Calcium [Mass/Vol] 8.8 mg/dL Normal 8.4-10.2 [facility] Comment on above: Performed By: #### B MP #### [facility] [address] [place] [address] Dr. Ab Sloan Chloride [Moles/Vol] 104 mmol/L Normal 98-107 [facility] Comment on above: Performed By: #### B MP #### [facility] [address] [address] [address] Ab Sloan CO2 [Moles/Vol] 28.8 mmol/L Normal 22.0-30.0 [facility] Comment on above: Performed By: #### B MP #### [facility] [address] [place] [address] Dr. Ab Sloan Creatinine [Mass/Vol] 0.79 mg/dL Normal 0.52-1.04 [facility] Comment on above: Performed By: #### B MP #### [facility] [address] [place] [address] Dr. Ab Sloan EGFR-AF BAHAMIAN >60 Normal >=60 [facility] Comment on above: Performed By: #### B MP #### [facility] [address] [place] [address] Dr. Ab Sloan EGFR-NON AF BAHAMIAN >60 Normal >=60 [facility] Comment on above: Performed By: #### B MP #### [facility] [address] [place] [address] Dr. Ab Sloan Glucose [Mass/Vol] 93 mg/dL Normal 74-106 [facility] Comment on above: Performed By: #### B MP #### [facility] [address] [place] [address] Dr. Ab Sloan Potassium [Moles/Vol] 4.1 mmol/L Normal 3.4-5.0 [facility] Comment on above: Performed By: #### B MP #### [facility] [address] [place] [address] Dr. Ab Sloan Sodium [Moles/Vol] 139 mmol/L Normal 137-145 [facility] Comment on above: Performed By: #### B MP #### [facility] [address] [address] [address] Ab Sloan Urea nitrogen [Mass/Vol] 13.0 mg/dL Normal 7.0-17.0 [facility] Comment on above: Performed By: #### B MP #### [facility] [address] [address] [address] Ab Sloan Urea nitrogen/Creatinine [Mass ratio] 16.5 mg/mg Normal [facility] Comment on above: Performed By: #### B MP #### [facility] [address] [address] [address] Ab Sloan XR KUB 1 VIEWon [...] by: REAL RIDER Date: 2021-06-14 09:08 Normal [facility] Coding Queryon 02-25-2021 SARS-CoV-2 (COVID-19) RNA TERESE+probe Ql (Unsp spec) Can you please review the patient's COVID results and revise the diagnosis if you feel appropriate? Thanks. [Electronically Signed on: 02/27/2021 18:06 EDT] SHOLA HONG [Verified on: 02/27/2021 18:06 EDT] SHOLA HONG [Transcribed on: 02/25/2021 13:31 EDT] [facility] Coding Summaryon 02-25-2021 Coding Summary HTMLBase 64 KmqixjjxINb4cSm+PGhlY WQ+YD7PDSZmB25edQLcsW 8IJ3aDDT2KJKFDJUWFCN8 KRF2iaOM1IPvcU6XksjPv GarvhMDgHW43MXj1CPP4o TapAMdseQ8azCRyI4r0Os NlUQ46pS04HOjnCBXwZdR 3LjZpbjsgbWFy I7kxJuDznIOwIfu+PHRhY mxlIHdpZHRoPScxMDAlJy BvgVlbFY3xDn7bISQsQWT vbGxhcHNlOiBj l7dkXYXfKSbwKU3cfEfbI 0RluJY1QRQam3j0Hr61qR I+YDHmCJD2uRzuGGmmm26 5BgInd7wqUSO3 eCEeTXuiJPS8J51fu1C6I HFsJIEkTLP8tTP8tL6wdU lsrzjsK3JvmRHqQpW5AYI 7vAVzfT6tsRkz xwmrwO1bTkc+O94XYU1YY EHXQT5UTij3F3EhQpddnK I+OD79KAFaIH86cCLjkRY jy7mjmGp9TkGy KBKkQDN2nUllCYtqu0ObW BBmH98ysGWas6X5BRPobU dinONrSuZrnFP2oA6kXMo tutpzc2rruzny Ewkhk6whzk45fM74M09xR NmfAZLpMRD3PIGgZIKqgO mkqc0brW3vRp1+BWack3m zm0cqvFj0TvLf SCGwygUxbAqkBNS9a4VkW m51G0ErgIojo9OvJjk2ks 07qMOil9Y1rBI6TGctQDV lwT3rRXvtNnE8 RONxIcWywB36qGZlJFwsS j9igHodpHxjZB3vDHOwjs maOPGcwW6fTQYmsDMmcVe lNT2kSINvsgin s899NhMwSIO1NHPyyBKiM 8XrrU6eBzDhKPYkKHJqB4 OqqKBeIWfdW107JJviAkB 9ETRkeuHeR8Vq EZBrcUixHoV9j9V0Yv9Yl 6VharrfRYF5ZCqoCFGcBw XjZeOwJtW1N7ImCdn1NUB opAadBA4zV6Rw STXenmkknpfpwRX4JHEbZ YRqoX39aCFrSGfuVt5za5 M8q464HMZgOIDlrP61Xv8 udDogMTBwdCBU hW7zgaazn9vymglcGlSuS CJiAVm0ESl1SFYfsKneEw IlUSI5SeJ9PHC6fARqgU5 tjFsdmrbfbW3o Oyc+Z35peQ0oHQM1NKH9x hvkYGYznoWyEO97AG48A9 RyPjwvdGFibGU+PGRpdiB zoNnnLM7sAhHq u7tvp4PfFAneB5MrFPRwB KyrIbx6ZHZkEIA7dLN8qM 0wWMTxJWvfy2C2bQD8H8E uzvTmdv6fo7nr GXQiNPmhU05aoXFpl9S8M KUilAU8HPWgdJmwOsQaxH 93Oyc+NTCifVrny4UlTol wx9pln1nwmOu0 NuKzTXUqrsKfoZfjAUX0n 9AqCc87I72bQQsgBCKeIL BkJUFhCXXxhFfbnd0qsF0 wIi8+PGNvbCB3 rDB7bC2vQBJiEmK7OFfiD 698NwXzaSQqHkcpr5nwp0 nqhFa1RgUeFZXvsoQqvAy sEMJ2d3McOp60 C42mDTfjSJRzENCtUETfZ WPazDlcpk7lpU9pSd3+PC 2se4aowk36yV87fQY+PHR dVTM6dEqyBIxk WPCyaH4yROgjLwU7NSVwS cFnuL14pSEaHFqjRa8dwO zlgPjgNN6wMGEsaernd31 7GqAxn1nlCSWy dGRwEHjyOTT9D27lq9P1H TNcMCFoWIH6zHT7uM1wzY lnbjogbGVmdDsgdmVydGl pVJnxLJmjD018 IHRvcDsnPlBhdGllbnQgT pNsXGt2N9YvFpf2WOQwxH dcTD6tdWZrMUagGt7tsKz yxJqpLZ2hMZAx ceava008LkSwv4lfKDHoo LXzJRguMXT3U18bm3S4EA ZeBYJiAFM5wXD3zS0zjRz nbjogbGVmdDsg kbKgsWmoEOupPAijS311Q HRvcDsnPkJpcnRoIERhdG G2AZ54IF09fSNcf7H1aMO 1T5GbCODkaxyn ncahfGM6OTBfMXYulT26H g9weUfxRq4yWLMtHAR8JZ GinUMwD5EjmV5gCzJfJBG yMHFnC3AyfCSk KWzuZ721AYlgFxO1MMAzs rEwB9VmPAPqtJnaLdB6y9 W2Wo6DC5Q2JM11AD82wPI pf2I7sQH7L8Ep OYHhcgpnxzchlBS3PIBzM OUncR42Rh8crUmpWb6wBH IaHNR8UNGntFAbE3YzyM5 yOiAjMDAwMDAw F4QoaYJoYSikX336IJtnV sM0ESWjbmFwQ0ZuARLvmY wwExW8s5J1Ot0WDAr7YT8 5CE51aMKzy5F0 tVK0P5MeNNMqgpanakgif OX1ZEEjPAEsjG83Tt2tbS oyGc4qSADxGYH0XDYepLS hG9BvuT8mPyXj MEPqJTBrE2UcbKNrKHsdI 475JImyLbM4VMJbfgAqA8 ZnKNZvbGzxDwZ8g3S8Ai8 DXFQuXA12OJH9 tTM3AY02EO95W6KjUoerw GFibGU+PHRhYmxlIHdpZH RoPScxMDAlJyBzdHlsZT0 xYz3xRAEoNJVj nYjsaCNxYdUko2ueFWXeP EfkLX5ddUijC4JjsAU4LW Ojh8v3Lb02B11oH2UblZF +IBQkoPM8rYC5 xL4yLaTjFmX3CFruE532Y kJntIYqVzcuj9zky0qwhY x7HlC5TAYosqWrtEdbEAI 8g7FzFu52V39y IHdpZHRoPSIxNSUiIHZhb Bmcko9iqQ6mLx9+PGNvbC O8qES0pX2bXiAlYvH6ZFj kP505NjLjbTXf Hdxwn4iqn6hlaXc7OiLnU EMpyhEfxFjwJCE8w8UlUf 89O2QigObyb6HwMai9ip9 1tIJbr7J1kEE8 P3YjSAHhmnvrhDMtjAucD R2aAEPapknmILYffD8eHA FuD0i6JsDlQaU3XHxuF5V shgH7KWAqxSVz KKxzADC4W51mm1R0LETnT DIhLUH9qXG5dM4hiQpmoo ogbGVmdDsgdmVydGljYWw yGAziA684YGIp eLmdINVftN2aTEKxmCCsf AuzKG4xEULtwfqdWinSAE wsIFNIQVdOVEUgTUFSSUU 8Z8ReFgv9UXXk mXocZQ9zgIPaXGtwZx6uc YiphSkoYU2kVJOulwkrKV PhhX0iCNQmhVEtmBdkZX3 fGQIqxfkfc107 OpYjYRD8JQKnoGKjY3Kru D0gGzMePTIyOLVqL8VkcV ZaHPklC203OKbrWmU0MJP dsyVbN2NtIXHu yUoaRnL3c8T9Fv9jYD3lN c3jTLz0HV50PW51rGAtz9 N8lSA8R7DkORUbiexwsmx slAG0BICuXGRq pN66tFEaEBlhWp9bv2J8d 328KTLyYHAwaC68He7abZ fdCJPkdEREkH5rhcvej6l vcjogIzAwMDAw OFy5QBb6WIIzhHobQbFcV WW6SyD0OVE5zEEkgQ5rvC fsbzmwaJ9eJgg+MzYgWWV bdoR9F9OxNah1 BYOzjFvqAY9frQVpSJfhA s2jhHfhvXuxBH9rIMFqaa gyGNFysF1oYPLxrNBkaKi mSE2eWEMicdrk j877FxDmBXA5DHEtoCKmF 3RtbG2rBwXaZCAyODYmO1 MtvYSyYMbwU392ZIyiVzL 4RFVdkaGrA3Gu IBNozBoqKbX0t6S1Sf2EW R2WEER3D2IoTre5NOYfuK zwVS3kzOJfIZebSi8pvSi tbYfiGE7pAQQn mwgbZRZdvQ6tPGRbcAHvo TdbXX8cXIRnbnvcr653Gt DsHWG6AWYqfBOpV5DbbN8 yOiAjMDAwMDAw Z5CnyLGuRVkyY100PStrG hZ5FDRngdKkW4CfPWOiyT jiApR1j3F5Kk2LUEwmwWQ +ML17mf15K8Wz WgzfPgz3IGYxXGV0gNO9a X2iTQVyYHsap9E1oRV9C6 QyqoOjfx6xf3vdLVZsEWo dZ40xqMUbb3A1 ATCgeOT3ATCybRobErEhb G93Oyc+IQMvoOpnn9BkSz uud4bps5zcfUo3VjGrMVL gdmFsaWduPSJ0 z6DyOp37P48eMFjlCNSyI IElHMVdOXOdfFhagc9kaW 9wIi8+TLNeoQI3qSG3iC8 bRiAvUwL2SDxv V289TmNnpKNiJcpya3cbi 5ydhMk0WzMnWAZxiiTyvA ogTXN1y8SfIt38S6GzlCw km0OeXql6gj47 nRXxf3C1yNH5P4FeHPNql rnmiNUgsIqcTN7wJHKaxu gdPAZciJ1iIVLqK5w0MkD oIyW8XZnhC8Hf tfH3CQTalCDhXQDowJMQi A4yfcujy3zosgaoKxCcPW DyWLt6MQp8JILdfCcpJzN oNID9InM7QJA4 aNAvzL3seZfvntxpwA3gC yc+ISy3p6ybeRXgPZ5wpN D9NB60GV29oAXxm3S3aLZ 3K1GsQPNoisiz lrxzdKQ1ULPcODIslT15P s3ibWtfMu0fPNThNFX6TL IqzFBmU3GzcS5kGwBnCDU hTGVbY9FnpNLt MJlyM010IBawStM9CLInf cLuM5RiYTQmzFcgQrB4k9 U5Xa2DDH58AK78BR12tMI by8C0yOD1U6Vk UOKwsbjchqeurAU9OONfM AEejO27Hw2yuMhfRo7iYQ XtKKG2MCLmkSTmN4XzxT2 yOiAjMDAwMDAw N1WvdIEwADmdN099SWwxL yS5RNNmcsGaV1ZrMZSlmC ucEjZ7o6C8Fh2NNe68LB1 7BV88mSFmz1C4 eZS5N9VzZCGqboffzmwgo MS3ANBiPAOpgI66Jm3onD spSx9pNBUmLUX3IPBwrUF eJ4DmfN2aMyPr UBKxFVGmN1KdoCWoUYbtZ 602DFqpLdB4JMJkpxThX0 ZxYIOwdZgxYoP2n4K9Rl7 RZZqfcwy8A8Ww PjwvdHI+TO03ZHGmRA88j MKpaPYxk8bjlFx8MaHjMP FmXCX2wSlkUOepl5TsRAT hS49txCQhd5Y3 IGN (more content not included)... [facility] Coding Summary HTMLBase 64 GyyoiwayXCs0lEi+PGhlY WQ+XY5BPKBlF51ojMHwiJ 8GQ0sAZO9AMFLSZOOVLI4 MSV0ahXZ4EDzqF4MwftVs LfzopXHoZU38UWg2SJF7q PmcMRkvyN1yoGQpY7j6Wy LfPD50xT15QKanXFKcEkJ 3LjZpbjsgbWFy N2bgEwIidDQvBxs+PHRhY mxlIHdpZHRoPScxMDAlJy HvwNabRE4tMg5tNHNiBTC vbGxhcHNlOiBj t7iuLMHvHUdoEU7zxPcjK 4MlqWT4SUBxi8p1Vo25tI I+FMAiSDK0uCuqEBjww56 4PqPut6ksJWS6 oPCfANqzHTU4A72be5O1C GKaKBGyCJD6xRL2hL5ttF fbipqqO0XspZBpStD7ZLO 1nZCquH9imZoo bgpabX3jCrj+G72PKJ7MB LIOHN0UQpd5B8LbWqzzuF I+DB60HXIgJF09mYAsoLB ws3riiSe3LhJp FWPjOMO7xWecHPrkf6YiQ HRyX90yiFGlg4Q6UFOfyE nmzIQzBuZmmYC6lF9vQOv tfdwzq9wbzhhs Fqdxn4whov63jI70H69dP VgfXRHbDXP2XSEmZFIhjU knyg8fjA9eZr1+OLyoc9a nj9unoZg8NoMo TKDdxvWykHqlWUC7h7TbG a61T9BikWuuz7UkDew0is 14cVYpz2N0bZG2WFubKQD daF1xXZytIzI2 AOVzGjTcdB80aZXzPHxrF w0vdOtodScjZI8pRBJybe wrGQGnkR4iJVNmmIHdqDe lAF2pTIAzevtj j151PiIeOKF2DQZzcGCtM 6XoqJ4aFvAwHMTvMLFrH6 WelZHjKArfG802FXxiDcC 0UFXpujIsM3Za ZRYwoGkqYsP1o2P2Im6Jj 2TktylkYJY2SWcqJGVdDw KrYdOqHlG1Z7PjJgt9LGP znEsvFH9jP7Lp AIJhbadcdtplvCH0ZSRqB MOhvN65hWKkDXgjIe2le8 O0x204MRWuJTUpvN25Eu4 udDogMTBwdCBU lP9cphngv3kqroakJqNjR CWjVGq4UVa7NQTxzPbpCx TlMYI3AbB2OBP9pQJyaQ9 qwEcyykdihI2w Oyc+Q03jzZ5oYBY4VUU9c eccDDKldrBsDD30WD10P9 RyPjwvdGFibGU+PGRpdiB yfPevDB7uEzZa j8dhr6EdOOrgA4UvZQStD AiuJik6BWQlSTH4yQG0fE 3aBBVkTXrni3P7iCT7P0D cogTjgj4jp1xq BLVmHJmnB99tgZLpn0I9I YQvdXX6UNDncNxrCdSjxG 93Oyc+ATGblQsbo0EnSmj vc0ecm0djaLw8 OjSvEJOahfVscFpdIUL6v 0RzCs66K59oBTjcGURkBF JxRPJvRQZarIarup6tvF0 wIi8+PGNvbCB3 hTU9eN6xWUYiLbX7OKwcB 521SkZkjZAdBfouu5vwb8 mnhCy8WoKnVBGxgsOnmRt fOCK1r3WaGg13 X85kTYykJLCpSMCrFQKeQ ONozBwecn0eeX6dVg9+PC 4td4ekmt06iQ18mOT+PHR yUFI8zUkxRUim YMTpqL2iCYhhRwA5NQUmE fXtjX96yGRoJKxeKf5iwD njzMciLI1bAUPsjbhzl00 6SfVyk7diFGWn qFQnVSsiVAP8M37nu8T4B VGjLWDeZCQ0rIA4jT3imL lnbjogbGVmdDsgdmVydGl tKHonZSnbS679 IHRvcDsnPlBhdGllbnQgT cZvAZd0F1FxBxs6HQNnrQ wpFG1psIJxGQloKe9uhEf taSeiRV6eOAYc gfyix821GaLeo2zwLWEcl GDuTXqmRNJ9H20lx7P4NZ RcCPFfTTG8aUN4xY3eoXg nbjogbGVmdDsg kfEjgQqvOQozZTmrP388I HRvcDsnPkJpcnRoIERhdG G8WI42HU34kCNiy1V4rEI 8X6ThAXLfgosx xpcdvIH3FUJbPEUbrX89O n7tgGmiFt3tBJMnGEF1WW QeeMLwR4UxbJ5zBnXgAAZ iFHTcY9NbnKRs XEugB156ZNrtAsN8BRBye xUwD2QzCXLqsRmyCkM1r2 M7Wt4CF1Q8WN74MA49bFA cx8S8rHV5X0Ie PYIpqibxjthelFC9WVKdD MWivK57Tb7lpDymVk6hVP XgYLO6LCDpbSHoD8YuyN2 yOiAjMDAwMDAw H2ZduQFtOQgrV093FTkhI xE6PHZphuXoM0WnSGPkyK zuWlT5b6Z4Ll4TJXn8RT7 0HA92pFJpp1A7 tXE6Y0SrSANbhixxdplau KJ7KIXgICYhdH85Wx0psN tuZc2vWRHrRMJ5NSFigXZ eA5EmrI4eDyAw YTHvAPWhK6UzaKYkOYtpQ 723CVwmBzK2JNOryeWnG5 SeIZTzwPomNgM7y2L6Ek3 OFDVvGU41CGG2 pGO2JL77XY50V8BvZsxea GFibGU+PHRhYmxlIHdpZH RoPScxMDAlJyBzdHlsZT0 fUv5bBYHoEFYs lCluzGPoMsDuy4bbJYKfG EgmTR1wrQmmD9EfwJD3ES Npa3t3Dk74N53iY5PcjIV +PVCjaXE4iUQ1 iW2xAaEmKdX1NQhbS035Y zDgdTRtNsatm1weh4zvtA w1KlK7PWIobfAsfLezRZE 9x4JxPh02W29q IHdpZHRoPSIxNSUiIHZhb Bioqv8zqP5hGf0+PGNvbC T3sMI2hD3uJqIlJuP4SPs jU910UzHiiITd Wkenh3luj5vvdCo3TdXuK FQqnpIzjEreAUV0d5HuYo 15L7EwiTwhi8VxYjz1wu8 1qAKei5U2rUN1 F8FwCDQyzcmgzTCkvTabT Z5uLWTflcyzDNLnzD3pLN EvW1v6YgPoQwP9XJioS9Y xiwW2PGNbxIJk CZsbFSG9T49lh7V2IWUuE COaDKE5mNK2wA2dmPfkwr ogbGVmdDsgdmVydGljYWw aZJbhM432ENJh gHwwJHNnsX1cHASyeRDvy UvySS4gDFMzzfolNbtBON wsIFNIQVdOVEUgTUFSSUU 4M3YpTut1UOGb yWsuJK9riIRgGKloYl7zg TmcwOfpVU4yFFAsqfcqUQ WamJ2iBWAenVNioIydAO9 iTWPpdgwet548 BgBlFUT1GQEewCPmI8Tgr A6yMuRqKUNhPWRgK9QqeM ArYDqeG767LSysCiM6KDZ iatIeX9OyNLNk tXiuKkV9x4Y8Rf8xJD2iU z8xYTs8WJ19CR92oEMmp9 K7jFJ5F6FvEFObcsdcbuu miQA7FJAbQYDo dZ79eXNxCKatQe7di9K4p 039DLVlICNfnT48Aa0roK oyIDAldCHGxF8zwnphv0o vcjogIzAwMDAw QXn4XVy6KNAffOpmJzGlP DC2IlM2UHW5hLZgdV8wjD viauxcaT7sNdh+MzYgWWV uhrO8H9JmCok2 XFEfeFwcWX9enVCgEVfiY r0gvPpnyCdzKL6kYPZauj bxTHPxxJ2wQDOaxEBgkCu sKW2yHVSktxfv g096UiFxAGG8HRLhgRDaQ 9YwpQ4uEvFqLXHvGZImP2 MceBMqHMxvQ658ODxnRxB 7CCZubnUcW6Qr JYRjnNnsQtH6c2Z9Ud6US Z1PRMC5O5QkLug6MCHybM vuKY0xxUYcBYdnAe6mlOe yrJbuEQ5zSYSf waksMYKuvJ3zVDQtnACbm ZqhMJ2sNVYknvcat783Xi DtNEI1LCGvzCWzF7AvtW8 yOiAjMDAwMDAw A9BjbVYtEQyhV426CLkfP bS1XODhjfRxI2WfBDOwfR omFnG5m4Z9Mc5NtDPgA3R tC1d2F5UeXxua dHI+RH24CQZkNV58tGZnt TQnu6sjvDt1RkUvHPEdYO S5wVaqFEoto1EtYGPmC28 rfPViq6C2VECt xIsftCKsJdPbuRG0tQ2nW Tgnteyml9tiztprZqhzq4 hfld90fR51Y20nBGzbSQI oPSIzMCUiIHZh tBpysg1ndO1bHq8+PGNvb WD7dGU3jO1eYcTcFtS9YH lnX978DkKhbIRvSblhc6z tk3sacAz4OqHa UGAnqyUwsGdkOKZ5d2IsI h93H00rRRguOLUeXPPgQT UiSDHxdMrsyz9doH5sAr7 +IU9ft7vtzh46 kC91nVZ+VNQmOLK1iYdbH HwvTBZgwW0hECagKaH4ZO EwDxTxpC78vQXsZBtcCi2 taKrydRuhQE4z OOPqfhtzy205FcEmt5qqP DSobAMzRQcoMTC1W62mq9 L2GKZsFLBmYJP4qVX5aY0 hbGlnbjogbGVm dDsgdmVydGljYWwtYWxpZ 680KBKqdXveRkNgtMXoJ6 kvrcQEED3jHdmzwLF+PHR hZYI4cPhrKGvy UVShsG4fTAGiH5x2WcOdR oQ5LQrmA9NbziT5BBAdoD GlKIUwxCEPoW5toamvv1j vcjogIzAwMDAw OVp9XXu9FHLeqEvdWuLbU KU4IkK8VGE6vZAdmF1dtO aqsidsaX7jSth+RklOOjw vdGQ+PHRkIHN0 yHppAXogPYUfiF1oFQOcL 4x0KmIbWhS8LUtiS6Tlsd I8SZYhoSXaTTWdjGFWwD9 hcgghv3pmxbiy LvLmVRQoSDf1QVt5URQrz CooOuBdWLX6JfT0ERC5jF YdlO2ydTamyvvvqP1tEis +TVJOOjwvdGQ+ GTHvMRY6fBxaOInnJPCwa A0uTEKmL4b4LrWeNzD9IK gdD3RvvhS4QVLqkKFlBGS kpAYUsU6fimwx z7xbykxmZmUlSSQdOVg3I Pp4KFPmmAgzHiEoDZT6Cj Y0FEU6bGEuuX7irWvysou yvO9wAyt+UGF5 AMD1IC78UJ82V4RqMobei GFibGU+PHRhYmxlIHdpZH RoPScxMDAlJyBzdHlsZT0 dEp0yNIDbAWDg bGx (more content not included)... [facility] Coding Summary HTMLBase 64 FpaudgrmIDj3rFv+PGhlY WQ+GA2YXNWkV82gbNQwoB 7LF1aEJS1AVAJQGCVLHI4 XGT6lcRR4FNaeH8ArodEy LeupbOIcUW25ZCr6AIF1j LquGYnlwH7btITyJ6w8Cc SyYR92oG33DFcmRCWwIrT 3LjZpbjsgbWFy R1tmAhWylAHsLhk+PHRhY mxlIHdpZHRoPScxMDAlJy DlqJlpBE0rBt4rLMYfBRU vbGxhcHNlOiBj x1vvQTOmZWzoJB5rfJpiQ 2UhnNQ7UNVql4v3Rw83tQ I+DHPiOTT4rLxaEAzmu53 3DrAja2gcDIM7 zCAiGEukWOW5I33ef2U7B CBkKGSeVWG4sEG1gV6nfW gegkdbA1XeaTIoCnQ1AJF 4oCZczL5nkLyl grxefZ2tZnf+P90CWQ8TX JREZV0EGve7U8CwOydfdJ I+GB50VTJcFK58aIZskFC df9gvpBk3ZkHl URXpQIM5bIxpHCanv0HwX XRzC46cvQDsj9K0YTVcrJ kilQBkIeZbnPI0gA5uETy rlxzig7hnhkwl Nlwvz9klkq82pB83E94dR GpfGBUcLLH2ZVPzIUQohG meqy9dzX9sZo1+EQmhg4v lu8nkbSx5AhBr VIJuklPnsYdbXOL7z1QzP v94Y8XluHlbu5EdWhj5cl 81vVRfw1U7mZZ1FMdpCEQ uaN6kVTuvMuN3 BAGsZsOlfE47cIRmKModW y0iuUddtRvoBI9eAGTkxy rwLJHotO5eHFQniNDycEn iGP1lSNDeazra x381NcOwIAK6JQFunQEkJ 9LtgR2aMeMwSUJuBIIgU4 KmlTNeKSouH938NHcsIpJ 5VFHnhuZzZ1Qr CEEebDaiSeI1q0L2Ph1Lb 7UoqkdqEEN7LKylJZSwFf KeMsGfDiV9L8YtZkf6IKO sfDuyYI2uF7Hm BJUbasclzstfhHO4SKQnD JUhaV75aMZfPNmtSw6mr1 W9r948UJYpZHNybT63Ti9 udDogMTBwdCBU pW4hvywbg8zrohuuDlYgP DZlFMb8WPo0POJmeCygLw VoZEP0IsY6GGI7vPQzmF5 hfUunwqpcgD4x Oyc+O25ibB0uOOF1BWX0q srwDEKpcaBeGP28MZ99A3 RyPjwvdGFibGU+PGRpdiB ulYpvIX1fXcFm s5lwf6EfFYzwK5IdKSBnL MdhYep8GKXpDZY1qBG1vM 5rLYAeBXjzs9U8yRX5N9I myrBlyi3it0ed HQRcNLyqH10zwOImb1G6Z XXijSO7XSOgmZskQdAouG 93Oyc+RGLawNtgp3BaKvr lj5pcs8vomAs0 FeLxNRTqmfFlzHtiKFL5h 0VcOl55X49tKCgyLDPzBB TeWVOsAFFwcYqzeu8rfR1 wIi8+PGNvbCB3 mDO3pS1vTAApDdP1FHeiQ 653WiQatHYsAfvzz6tim7 rmmQj6CeIiITUiraLzgTo gKSF5x0PbWj22 I25vWZrzVXXkKOUmROAzV OIveTuvuk5lwE6xUx9+PC 7yn4fkql19mZ83lPL+PHR vYEG1aFfmRPek WIRcaL9uXFoqWaU0IPYcY sXagV35aEXhXVdlJb7eqO tsdFabWR1rEFCbhanfa52 8RqHnu1vjIBUb hMJvOQhzAWF4L00ra1J7W KImXQXnLOC3eDX9sY0fhK lnbjogbGVmdDsgdmVydGl vFCjtSYgtI100 IHRvcDsnPlBhdGllbnQgT rSqCEi1S5KlNih6KAVfuG ogGN4niOApLYbbSq2nvQu vzFmsMJ9lXHHn xzkfr490EkRwx3ecIHEzf XGxWXymNHV4K92qf2H3RY MzYQXrFII1oAC1sU6lzJn nbjogbGVmdDsg zkPwtTvpGIysNKsxQ914N HRvcDsnPkJpcnRoIERhdG S7LT91EC07iYLrd3R6dYZ 9E9ZuYPJlsxmn ljgrmHM5BFXcOJYggD14F f6yeFstVt6kDHZsERC4RG MilYSjP9WsaM2qMzAsFRF tRLPvQ1DxlVIh EHotQ281DAspGcM2XVXao bUdL8DdZDAcmVgwAoX7j3 L4Um9HC4M3UF67YF73vTJ jz1M7dHP6D7Vo YCOkblwwhsgqbQE4XRRcP NKsiP72Zy5ldMavOb6cUQ ClGIR8EWReyIXiX8VrqV0 yOiAjMDAwMDAw M1OuqFHyBUukC221XYuqU yI0MFDcmcNsO1SmVFFlsX coZdR2l6E5Gu0CMMf1BM2 3YX31pYNxi7P2 rEY9C6CcZBSjlugtioxyh SR4ULLoLYGxhC48Ni1ynI joRd0uFNAzCWT9MNQmfIP oF3QseY8iKjGi APYkZWEdF1UytYRmPQklN 763ZZgaBoR3QHLidoIkY8 VmODOypPbiBtC4j5G1Dn8 FGQFzYL79YVG0 eVR7AB28HV87Y6VuXyquw GFibGU+PHRhYmxlIHdpZH RoPScxMDAlJyBzdHlsZT0 gVy5zJRDlNXHr vGpcvPMaXbBhj9iaDYFvP DwaLQ8ftYvgI7FynQS5MV Rxa4p1Hg95F63rL2EteFL +BPShhNT3oVN9 mQ5dUtGgBsP4MRsyT452I oLlpBNyZjmiu2fkr8xxaN g2GkI9NAGftoLfgLzxJQP 0e6YyVe92Y50h IHdpZHRoPSIxNSUiIHZhb Zyjvg8wsI9mHw4+PGNvbC Z6lKR3jH7xBtKpRvX5BCz zK869FnDakCBt Pykyx3pbw7mjnFo3UnDtV ILdxkCxgSkzTLZ7e3TpXw 87O2BcsIxyk6WyUqb4oq3 9zDRai1H8uJQ1 B0RbFKZnpcwavHOwbRflE W7nGUCcazsnHHSpdV1bYX DiS7t1CvRtHlV4DDtnJ6Q ttoK6NSFnwUUm AUlaRIZ8N85gg7L4VNTvT XEjPUR0uXT4tH1qdMgqlu ogbGVmdDsgdmVydGljYWw vXUokB671LVZf fJgaXOZymT3nTIJaoMIje FtlAQ2lJFOxksdyXbhYMR wsIFNIQVdOVEUgTUFSSUU 7E6ZlTrs1EWHk jNtnVI7gyJFpYFmhUh6mj XpksUjcPL1dVEMyokpkQX FehI3mGPPhdDOsxPxqZM0 rLYAvqgnng596 SmRzOHA2EKFmaBSmW8Vdm Z6kGbEfKRArLTUfT0WuhU AeQEqgK598QBujXnT5YPU vbbKmZ2OwEPYe dQyeJnQ9c2F5Gx1hBO9aT o0cHSx8VZ93EW08mIQwk4 X1jYS3B1EwPFUpgmtcgmr ntBN5CAJfHVSt dC96oEPzCTrpAp8ib1H7y 805IEBiDQYssR50Ur4zmM bcCVIvsWOTnV1jrdsxx6h vcjogIzAwMDAw FHx9AWd3KVEajOzcQhOjW YC1UhP3PLH5vSJvvI8zfH vyuqmclW1oXrz+MzYgWWV dnkL3I1CaWcs2 OZNbwZcwOV1imZCxYZyiT h8wjKyesFyxUE6jAYFmgd azKIPxdB5sTQYvhTAleRk mGD6xQFVgxkfj v198UsQfDMM6LOTnuKKmJ 9FkeZ5cErPhEKXwRBQjO0 XxkLAhOQgsW130QYqsIiJ 7MBWjdyRkN5Lo CRIgdXfeJyR5r0V0Wf1LW Y6TTHA6J0XgAku5UNZyrO jrMR8vhNHjVNyfOw2jpYd eyZlrBU1dCWWd nudiFVBpwN3jBBXjxOVbt RmdCV6vOJAqjunux673Lf ShDFY1ROHmeHReF3IeuO6 yOiAjMDAwMDAw M4GyfEBmQDqpQ635UBpzE uS4SVEuswIhY5IoSLIwkF nxOgI3z4H4Gq0JsKKyG3Y kX4d4Q5KrBvvk dHI+FV64KAJlMY14gMZgw UEym6mcjGn3JwEoLKVvXB L9oRgfESlix6XoDAFjA98 rjSRtv5X2EUWw jWetkWAoYwEboOO1dD4aN Dmhmhyty0icspnmOilvl2 hdco54cF56O23pDIyqRKI oPSIzMCUiIHZh aDliko4drO1lOp5+PGNvb AI1fXF7gB7dYuMuRdH5XE llC047WfXyiAWlBulmk0g zo6zvbZv1ImSw NVIhoaSteQtiWAI9v7NjN y31R81yNWdaDKDkOWDcNB NwHDUiaNcbln9viM1vJf1 +JK6kl2sxto74 wC93bIN+AGMiZQO0bXakS HjgRQMcrQ9tAPfqZjQ3EA AyHjOpmX59kHTyJFagTi2 ciQrpnFshSV6u LXWnaalqp114KnPqv8uvC EKbsKRyXPukOPG9H19vu2 L1JABkRSVzWIS9gID6hL0 hbGlnbjogbGVm dDsgdmVydGljYWwtYWxpZ 977XWHuyDpxEzDjpVGnW5 opgbAARF2gVioghFT+PHR tFEH5iVcnOPjf KZZswX8nBESoE9z9EiBjT wI7WOprW0ZikxZ1NSPwaW NbYSQqsRIIgG3gxpiyz1v vcjogIzAwMDAw BTn2YLj0QRYodSzmPhNuQ AF2QoZ5NIR9bXKalQ5ngE uppuibtH0fUrh+RklOOjw vdGQ+PHRkIHN0 yZgeBGkuUTSgxR8oDIFuH 4l0EdSeBtN8AQozG8Utxl O9PWFwmYMbEQYzqVPGeP5 snkiaj6xlcdgm LqWxMTIgLUg8UTr2DSWkf RpjReRxHEN4SoX0IYQ6tW LfmR8suVdyuutesE8eHwg +TVJOOjwvdGQ+ IESpYXJ1ePeaOIwlDEObk I7hOIQcH3m0UbRgYcP1KB mwV5WvmsA0FVMnpTHtRZB bjYZVlL5gxuvh i1saxgpcEoOxWISpOHt5Q Qs1SDAprSrzDtSlEPC9Ze C5JWR6eKFkvN9zdIgivcg dtQ2vNki+UGF5 HDC8MK54PS05U8CcRchry GFibGU+PHRhYmxlIHdpZH RoPScxMDAlJyBzdHlsZT0 rTw1nSQMeFTYw bGx (more content not included)... Normal [facility] ED Note-Nursingon 02-17-2021 ED Note-Nursing Patient called and informed of positive Covid results. No questions/concerns. Normal [facility] 2019 Novel Coronavirus (CoVI D-19), TERESE on 02-16-2021 SARS-CoV-2 (COVID-19) RNA TERESE+probe Ql (Unsp spec) Detected Abnormal Not Detected [facility] Comment on above: Order Comment: [phone] Result Comment: Yamilet ents who have a positive COVID-19 test result may now have treatment options. Treatment options are available for patients with mild to moderate symptoms and for hospitalized patients. Visit our website at [email or web address] for resources and information. This nucleic acid amplification test was developed and its performance characteristics determined by [employer]. Nucleic acid amplification tests include RT- PCR [...] detected) result in this assay. Performed At: [facility] [id number] Shanna Correa PhD Ph:[phone] Performed By: #### 6 [id number] ####[facility] ([facility])[address] [place], [place] [id number] ED Clinical Summaryon 2020 ED Clinical Summary [facility] Emergency Department [address] [place], [place] [id number] ED Clinical Summary PERSON INFORMATION Name: TALHA BELL Age: 35 Years Sex: FEMALE : 1985 MRN: Acct#: Visit Reason: Cough; Sore throat - Adult; SORE THROAT, NAUSEA, WEAKNESS Arrival: 02/15/2021 13:59:29 Discharge: 02/15/2021 15:33:00 LOS: 000 01:34 Check In: 02/15/2021 13:59:29 Checkout:02/15/2021 15:33:00 Address: [address] [place] [address] PCP: SAVANNAH RODRIGUEZ PROVIDER INFORMATION Provider Role [...] Medical history: Resolved URI (upper respiratory infection) ([id number]): Resolved.. Family history: No family history items [...] or hot potato voice appreciated NECK: -Supple (ratk-ei-ixrzy): non-tender. -No swelling of anterior neck or [...] pain with (more content not included)... Normal [facility] ED Note - Physicianon 2020 ED Note [...] Medical history: Resolved URI (upper respiratory infection) ([id number]): Resolved.. Family history: No family history items [...] or hot potato voice appreciated NECK: -Supple (gmns-lx-loxfc): non-tender. -No swelling of anterior neck or [...] other p (more content not included)... Normal [facility] ED Note-Nursingon 02-15-2021 ED Note-Nursing Pt presents to ED r/ t sore throat and burning when she coughs. Pt also c/o h/a. Pt states her boyfriend is here now and is COVID positive and she wanted to know if she has COVID. Resps even and unlabored, vitals stable no signs of distress at this time. Normal [facility] ED Patient Summaryon 021 ED Patient Summary [facility] - Emergency Department [address] [id number] PATIENT DISCHARGE INSTRUCTIONS Patient Information Name: TALHA BELL Age: 35 Years Date of : 1985 Reason For Visit: Cough; Sore throat - Adult; SORE THROAT, NAUSEA, WEAKNESS Arrival Time: 02/15/2021 13:59:29 Primary Care Physician: SAVANNAH RODRIGUEZ Attending Physician: Tiburcio Kennedy DO Comment: Visit Diagnosis: Diagnoses This Visit Cough ([id number]) Cough (R05.9) Exposure to COVID-19 virus (Z20.822) Sore throat - Adult ([id number]) Prescription Information: If you have been given a prescription for narcotics, seek immediate medical attention if you have any difficulty breathing or any sudden status changes such as confusion and sleepiness. If you or anyone you know is experiencing suicidal thoughts, mental health, alcohol and/or drug addiction problems; contact the [facility] 26/11 Crisis Hotline -Text 4HYUI jo 666782. If you received any narcotics, sedation, or [...] legal documents With: Address: When: SAVANNAH RODRIGUEZ [address] [place] [phone] Business (1) Within 3 to 5 days Comments: Follow-up primary care provider as needed for reevaluation. Continue supportive care measures at home as discussed with plenty of rest and fluids, Tylenol for aches and pains, baby aspirin a day, Vicks vapor rub for congestion, honey as a natural cough suppressant, amzh-oik-hltmmrz Mucinex. Return to the emergency department for any high spiking fevers 102 or greater, intractable vomiting, crushing chest pains, struggling to breathe. Medication Information: The exam and treatment you received today in the [facility] Emergency Department were for an urgent problem and are not intended as complete care. It is important for you to follow up with a doctor, nurse practitioner, or physician?s assistant project manager for ongoing care. If your symptoms become [...] so we can reach you if necessary. [facility] Emergency Department has provided you with a complete list of medications post discharge. Please inform your human resource assistant/provider of your visit and for further instruction [...] vs. Isolatio (more content not included)... Normal [facility] Coding Summaryon 08-29-2020 Coding Summary HTMLBase 64 PhiibkhaJTb3fHp+PGhlY WQ+GQ0MGYNdC04ukIUegR 1CM4cMUC0TUHYWNXHOKT9 YJH6meCV5ISvfH1IfiaXp RjxglOYxNC89DNd4XBH3e FpdWFfkeD9lxYHgS1z1Iy BnLJ24kJ48OLtuENGtXhS 3LjZpbjsgbWFy T8lhSeJelWBePqz+PHRhY mxlIHdpZHRoPScxMDAlJy XxlBleGA5xFd4fMDNlFCL vbGxhcHNlOiBj f2nvDDRfKXamTG2xhMnwI 1QpzDC5CIXqo6q2Yc37wN I+NEZrMCF1vUajSFnhp23 2CtHdx1epRDA4 vJMqMXfhDOZ7U00qq6M1H MSwAPWnIJV4qEU8oI6gfX yizavzN5ZntCHzVlA9IIJ 9hQSooK9ygXsa bztfyP9lNhv+E40KLQ1RV MXXUF7PLze0N1IxKplkvH I+HE27LTOhIC73lLImdZU nq5tvkFy1VbAz IKJdRMO7hVbnPWdwo4TkX YXmN95syLIdh6E1ECFokR zwsDDyYaYbrYK1lF8iLBz dfpbww3ssvaga Xxkmm4tidv39fR45V25pO TusQLPxDSM2BAPrTPXurN woev2laX3gXc2+SDilo4v rx2echBn6BvHa NQMkdyGjhNysKPW7n9JbA i07A2ZihMhbd6OzFmc0fw 90kDNjp4A8xEB2MJhyFZU gkL8eGHlvXxB0 JNEgQoCfuG75yYOaFZexM v1esNpmkIafQR5xLWFlhu rwUXCrzR1jDCGxnGChhTr cVN5qJIPrrxyl a570LiUqNLC4TZAnfJOlM 6SkbD3mWyBhLYNxYHPgV7 MkdOJbZFiwV486UKxaEsJ 0DMNrnxHrR7Bi LMMonIyiPeP2d2S3Mz9Ws 2XqficzDBQ8FFodDBJ4Ma Q5RrZrUaS6S3FjRhg3VGD yzJpmHG2mJ6Kb FHSikevlfeuhnLC8FDQzA WZzvA58yNNnIBtkUc8we4 J8e243UDXtMPWnxE27Rc6 udDogMTBwdCBU cE9vngfcd6udutrvEzIrS GVsQWz4INn2CLKxaFboKk SbJNP4YgE6YYO8oJDplU6 fnTjgcuxwxN2q Oyc+V46xjR0sWMF7OBV0t oikWJMxpsHqMX68AU67A9 RyPjwvdGFibGU+PGRpdiB gxFetVM2fCcHk w8iju8MvJHnoJ5PkSKQrT BhrAar8GXLeASX9lHU6tN 1lESZzDWeii6A4oKR6A8O ujfWehi2cr0mm OKZpBIvoB12geZCva7V3Q RIwbYS3WMHcjUqoFrAejL 93Oyc+ROXjvQyox5MgUax ea5tdv2vrpQf6 VpAqVCPpicYfrHwbPJO5f 2WnKa81Z06aMEoqPMXgDJ XgRBFeHJSubInmxi6dzK0 wIi8+PGNvbCB3 aTB3jQ4nGVDhAaE8XRdeV 374PsXroQGyFhtiy6ugs9 qrlJw7HnDnVZHenaZggIh mCOO3u1ZjXf70 I22hDLztZSPzRPXoZNGfK MWytOsihx1dhF4pKz6+PC 5bt0lbgf36xT58iJA+PHR hSVZ5wZpiWSdb VLKaiQ1yPAfbYzW7RMEnP bXnmZ85wATyWWviLx3fcW rzdMzzVR5sVJQkbppnk83 1EjUkj6eqFNPj vKNuQLguIHJ9Z75di2M3O EHgNPHtIPZ0jOZ4rW4adY lnbjogbGVmdDsgdmVydGl nCPdpJSjlW800 IHRvcDsnPlBhdGllbnQgT uOnLGv7W8RgOto2KZBgeT xyTE5lsZUpJRwmYk6qtCf hkHveDN8oELPp vyfek709NtTlw4acNKLga LKgKCmvBEM1U46qy6E0FR FuHOOeAGZ3cZI3zA7uxUm nbjogbGVmdDsg yqBfuPpcXUnmGJznV778F HRvcDsnPkJpcnRoIERhdG R2SJ43CM56yCEyp7Z6aAR 7C3AdGUBryery fhrfoKR5XQNtFGAkxM88M e2wjTzgHh7tOHRiXSR4CX IkeHAlB4VofR8uBeNoOIM zOYDmB2OtmJPg VHvdX916YItjMzK9VULqg wIyN0UuKVBlxQkcVuE3g1 O9Mf1KY3M9GZ88WH36eLU pu3H9mLT5M9Oy UZPdgbhvsdhxaFN8VLDkA YMeqY82Gq8ntFduTk8bGU NrROJ4HTItrYYcI2QgvU7 yOiAjMDAwMDAw L9WtkAVkXJldF752HVgmJ jJ3EOAytoDoH2MpJCCowJ jgPfD2j0A4Kc8DKJu6PR5 9VM91dBEvm2B3 eDH5J0EcHUTeeyvkmyclj EJ0NEFxKTPliG72Vl1klH zmAx7ePMMuSGS4SNRonJJ kB6YjlF9xBzXt WVPsHEJiU3RpyEPhPTwbZ 049COquBiG0QKWgdpWjY8 XaKSTxpLmvYtR0i5J6Cz4 JGDJsQS34LVB3 aDY3JA15LJ65L0HnJtbmu GFibGU+PHRhYmxlIHdpZH RoPScxMDAlJyBzdHlsZT0 bXx8kXQQpPEQw gMjdiGSiPzAli7rdTQIbF VyeFA0vzCfgA7CqkNZ4BH Nja6d6Tl46I78iT0DauCI +JVFrdJU6dYC0 cK2eGkWrWnZ2PRblQ247V nEtnZYuEnuwq0lwi1nprK r8MyD0JYKyzpFjtBweHCM 8u0YwJh92B14g IHdpZHRoPSIxNSUiIHZhb Vmykp7vuQ3tRi4+PGNvbC T0sPC7bX6dImXsGiZ5JWu pK578YgAnwFNn Sngdy3umv7eszKl2NfRoL GVsukGciHlgUYD0n2FaFp 64F8XvoGzgy3CaSdy1en7 0yWDts4R2gDP8 I1QnKPIhyynwyFFglJrmO G0nFZHiebkvJODwuT9zHJ JqQ4i7VcIvYyL0SSvbH9G ifoU0YPTqfJVy XOnsHTJ7N59jm6J5XRRnH FFdZNC9nXH9cQ1mwPicil ogbGVmdDsgdmVydGljYWw eLRqiO292GMPd mCpbPOBhhC7kZSZbhWYzp QqxNP3pWIGacvtdUxoABP wsIFNIQVdOVEUgTUFSSUU 0S1JgEtj9XUSz cRmwDX6tqYBoIMpbJb2cm CyyzSfcZX7dOLHqypibAB XcsS1wMPXabRCowQbvJD9 lRGZyycuva795 MdAdDBW8XHRqcGIqP8Dca Q8vNhMkGFZsUABwY2TmtJ XlGQakP878STtlDbV8RRW idgPvM5PnSSQd mFftOgY7q4L6Br6qMV8mF n1uYQn6JG39KG24cSHmp9 Y6oCT1A2YkKLNutumnmlx pvOG6JKJgHQOm bG22uJPdYIovHk5zl1K6k 778XOVfEQObrN76Lk8kaP foWBAegGIXwX5sweelr2f vcjogIzAwMDAw PQq2ZIv9YBIvdVhjFzCsU FI0WfR7JVV3fYVefY8exE ogxdrkdK1aUxn+MzYgWWV zrcF8K6DbNpd1 OHMkgJauTZ9hsHDyCZjnB r6fqZrsdInsYQ2hFWErhz kwNBDzsJ2cMZFgmZRdvEq dQZ6bIWIwpzct o122SoLjSDY1JFWnxVMhY 9AhhN6pVfBiMKOlKINdI6 JcpXSbBXvoU008MCpnEoN 0BSMgbiMtQ7Ii TCTvvThrDxC2e8L6Jm1WZ I1GFTM0D8BxWie3VUXobQ njPV2mwWXaUPmiHq5caNb imJpyZH8uQRUn aiofPAUbjI6sEMGydRHmh GsoRJ2sCFQjwpugi297Fp CvSTF7HKMpwXKhA7UhoK2 yOiAjMDAwMDAw O6BirDZyVLegI568XEidU eW0MVWcbnPhA5FtESDwpJ acBlJ6m5L4Zn4HYSysaXQ +WB21co09V0Ob LrfqYuk6WPGdWVZ9bJB4u F7vNFJbHEdhu7T1lBQ7T3 WyeaJkhq7gu1vsUESuZAp dD25qeDRll2J1 WOFjfUS9EJAgcSvfCdSsq G93Oyc+YQCgeUhnu4MrJp qob6rba1fxpLt4MoPfPEX gdmFsaWduPSJ0 s1SbAv98F87eWFqxORVkM VRoHPZvSURwsRfldm4ycU 9wIi8+EBQboHW2kFR8zU0 kBbVgIdO8GKea Y389KkWcxVHiOkvez4aet 4ceuAq9BbGfOWFelfZfuL hbZZX6b5GmGs36O4FvlUe to0QrTdj6vy31 eATwh1X0gGC8M8YtFJNnu bekiLVlsGeyPR4jBNKzqz qoATLudH6zEARmR8j1YiC hEhU3LKpeH6Pz hzT4AGGniITeVSIsmPGIq Y9qizlej2njrfmzFmVsNQ CzBGr1SUm9XVDrpThjCeH uLGL8WdB1NUL9 aLDefA8jyZmilarkyM2gY yc+LSq5v5paxGVbSQ4ccI F2OX71UD26xBOto7X0pSP 9K3GkETTgctlx rbhzoHS4JTRxDDVjpY31E w3iiUhlUz1pTFVgDSG8YI HodBNsD2YhqR3aDsDlRFX eJFRjX4TniLDp KTlrV950EVhmExG8EMEis lKxL7LdKAVmsZmzEnO6v7 J5Fe9TOT01SL49RV35nLJ hb8X0jZP1G0Jy KXQqytpmlyqxcXS1KNTnN VBnqS86Ug7zzBnuBp4jKL BnOOW1GUIymUTkU4QwnJ8 yOiAjMDAwMDAw M7AwtGIcPVtuY334NChuF vN5GTKdonMoR3JxWAWifC scQhT4w0N9Xt6KIi76QB5 4LK42jTLqp1J5 nCQ7D2KvGRNtnwzpazksc AZ0CVTzXDMguL69Pj0bfU cdQe4yZAYnZQN3LZRraSH mF1NpiM4qHyRz FMXdNVMrM6MglNVcXQuvI 387UOuoWdG7KWKjinEuC4 YkDHWjkDofDhQ3y8A9Zm9 CGFwwcgj2L8Mc PjwvdHI+BG50XJEvEA88d CVmcLRjl4ddwNr8IfIaSG AqTBX2yYvuMBaeb9ZuYHX hH64qnBBqi4Y9 IGN (more content not included)... [facility] Coding Summary HTMLBase 64 MdnmyvooDIj9yWr+PGhlY WQ+YP2XFPCsW04fmVAbeK 2DK6kLJW0WVICWMUXJFK0 DYB2gfUC7ROyfN3NmsbDg MhbyoQJfAH89VXi2VVV4j FekLEfgfL3zlJTuJ2s1Dm KvRX65iW77ZMvgUUPwJsZ 3LjZpbjsgbWFy C0kePeYmcBCoYwt+PHRhY mxlIHdpZHRoPScxMDAlJy EvjSgfCJ8xXv5mENUuLGS vbGxhcHNlOiBj h2gcTWEvVQglQT1ajIrrG 2IbaWE4JCJuf4o1Ha96oB I+FHFtVHM1wYgzLDqca33 1QdQdi6baRZW1 kWFyYWehAKN9Z44ea7J1S FTvTVTvVHE4wQE9dL1daR fhknvlZ9RqtJQxWrG1XVA 2iJAbnP9slMbk xkwpnD5dJkh+T75ZAE2CI NVBBX8GHvt8Q6FqOanyjK I+GW40MLOaDS96sRZrrNF ye6bqnIq7BuCb WWLxWNC9zFssLJnfx5LnP DJwD27vpHWux9G2WAGbgP ayvPLdZcIfePR3dV8qGPa bpomhf6znzcbm Hrgrm1lpmj53lL94Q69jG PizUJVpHEQ4FMMbBGCqcZ clph2fhG2iTa7+DCarn0k fv8wptSi2WrBy QJAvqxJwwUgvSTT8s5LwL x73G6XvrRhhw2UiNmm1js 11xAWzn8M8tFD8PZwdZVB xxL2qAGbhPeI1 ZBRtHcWncT17bVBaHXfjX m3vhIyloMgrWW6uTTLcoa nzKCRmjS3bERAedHHokRe mMC6aVHYcfwaq y927OiLgVMR7ZZTjvOUdS 0SvqQ0lEdMfNPDgLTZsN4 GfrQQoADdvT267VRsgFaD 1VRUbgdSxG0Bq COLihDznDdF7i6I6Hx5Nm 2KchbcpNJB8FPbgFIJ7Jk V0VgOrCdK7I9JbIwe8NED lhAvqQU0lY3Ny KYZzbnxffcmxuGN0RQFnC WHgxL24cOKzAThmYa3cm0 F0z370FZUmYVHjpC28Le8 udDogMTBwdCBU hQ4iwgjyz5mxfrdzOhHwY UTwUFh2PLg3OSPyiMcvHy QmMXH9DvB9MNX6nKPdrB0 cgSwwxahzsQ7h Oyc+F24vsP7lPKR8EYH2i ovzYZQvnoHsZB00AG70O1 RyPjwvdGFibGU+PGRpdiB mbRisYS3pNwQa i1pof9RqPHcnW9TiOUYcL AxsNuf0PJZaESB0aKR8vK 2dUKJtTOtlf2V8cZW2T2R kcpZvzg3ui4nu XARkTCzaU83daPRip5I1I TYzdUU8PYCakYjiPfQijD 93Oyc+OFRzuSxao8ApNdw mn7epw0khdTg6 JeJuTMUabvOzbSrnCQP0b 5ZbWw44P48fWParATWcQJ KfAJBcFKJjwBrboj4qtH1 wIi8+PGNvbCB3 uZL6eC5sQRSdGtF4QQezB 931EqPwyKVrXkvoz0hog7 pfiHy4GsBoKQSsirRsbDi uYMX5z4JuIh53 S68bVHbgYCTdVMQhDUXlT QOxnPypbr7ajJ2xFf9+PC 6da5przt05rX24bOU+PHR lPRB9qJzeCLot UVZrjH7pQQcmSjY0TSKsL mTllM23iZJiIUssBi7jjK nycSbgQR2aNZTiriywc53 3LkNeb0ulAEVe cTYlIZbuRWX7T09us9E9C ZQnLFWfCVV1gZT2tM1hhF lnbjogbGVmdDsgdmVydGl hUBbrUPkuZ681 IHRvcDsnPlBhdGllbnQgT xTcJNj3H5GvMhm4YNJolT kgEX9sqDAmYMitHu5xfWc ssJdqXY9kHPNe ronzg484CsMtr3xnCREyh AWgPKsjUHB9K62be2C2FO AhRIIsBHA8bZS3eP0kgQt nbjogbGVmdDsg rbEwgZobVSdtFIsgZ066L HRvcDsnPkJpcnRoIERhdG M3YE27KY35dQMic3K6wYX 6S7TxTVNqvkgb rlhahFQ4SDTiUAXiyZ94G k7qeAbaUf5oSYOkHVY6MH RibEAcN3DjnO7pDlCeWVT bFTGlJ3GwvBVd VVwfN984MJxxOyK0SBXau uWkX3DsLSOojBwmMeC2l7 C7Gk6KB3A4ZI25YH86vXG ma7O2sPX3X2Ga PDGnqtonivcukDX7BFTqR ECosA80Ij9nwVjyMl1kOE PyUUL2JAJgsWNvC2WorM2 yOiAjMDAwMDAw F7ThdEBwWGsrV888JJpmN tA0AYNmuyUrM0BnTLKgzW zzSdY0d9E3Kn2FEQq7OR4 8JA35lTQbi5U5 bCB3K2PvVAWdhmjuetxmw XM5ESIpXDXauK29Wi9oyK koLy1pNUYbZGK6HUOhoUY yC2QecM2pAqVq SVLyHYJsW0FmiIOoODeeL 152JHlyCnZ8PXWajmPwA0 VgUYTobAyhPbX0z4Z1Wf4 EWECxWU79SUV4 nXX8CZ24WJ30S9GvHhbnr GFibGU+PHRhYmxlIHdpZH RoPScxMDAlJyBzdHlsZT0 uQi8sVJDpQXYs tEstfNGdAhRfu8rbICGtX ChrAG3vfUnoE7WleTY6PQ Nnc5p1Bk81F32tN7GucEB +ENUusQU7lJY1 zU6rMnLxZcM0JForK540F nNueUFzLlyvi1ewd5yktO b8YtA3MGZgrmGzpEpdMEK 3f9WiUs69L14b IHdpZHRoPSIxNSUiIHZhb Zagjs1cfV1jZc0+PGNvbC V4aKL9cC3zDjWiSkY3ZCe xM553ChVytMTw Ljwmo9qfr5fkuJa4ZuRbL OQcwiSkcCskZTM8r5YhOw 77Q6VklHbbb1VmOlv8sp3 6oGLyy7Q2vDD5 C8ApLBPjjjnvhXAiqAbkE T8aFLDzvwpbRPHlbB9qEC DgR9y9ZhAuWdQ4MPfcI9D gfoO4HAJsqRAf JRkxNEM4Q23hc6N5MLLfI VXwNDP3iLG0qZ5haTwsbz ogbGVmdDsgdmVydGljYWw uDMgnR283YAIi fMugZVKbjB0lBUAbdATfc NnlYB1tIYVwtbuiZtyZLM wsIFNIQVdOVEUgTUFSSUU 2K2EsSvm4RJUl fSyeKP1niZZeGIntSi7nf YahiVylZY3kWXGnfhwzYI ZvrV7fPFHjtPWcwPttEK2 tHRLllothm338 KgMbQYM1WDUbxSEhD7Hbm D4gTyVhTUGmALKlB8XvuR UvCLptJ788EIhnMkV7NII rtyUqV7PxZHRc jOjyXrF4q5D9Sx8aZN4fN g6gBPo1GD03FU29dOMlw2 I8pZI9L6HcCUXyoonehuv icPN4GQXkEJOf bV80vSDoRLpxDb4ga6U6w 986ZKLiOIVbrJ16Fd2fiU ayDDJloSSUoN3nhqqrw1y vcjogIzAwMDAw NYr2SZn2CYGkoVkbHiZxV ZN1UgS3IDS4qRNzcA5okB szgibzrP5rNbt+MzYgWWV lkgI5M4ElGfu1 HAIonUeeLT8qnQSjCEmhH x9kpSyhxYvvEK0yWTKsrl vrIZGxpX3cNDMobJBkhEi oKO1lGWFrnuou s291AzOtXGU7JOQiaREfK 2YimM6tReLaZMNkPSQfV3 QchPMkYWxhI407QEykNjJ 1RSSuatAkB8Tn CVBpdIjwSoL3c1S7Ep2ZN K3BTGO2N6IgTen9SKJwpN oaJB9kvOHxJHbmJs1yjOh faEzsOD9wFFNe uddxYYMiwJ4oLCJtqBCnw ZinPU3pQSOnpbcid896Cx BaXLX1KSNebCRdE2HtuL5 yOiAjMDAwMDAw D4YviOFcFCcaP123NLghB qZ6FZYluqEaW0MaZAGfrE jlWfB6i8E2Aq3NeWIwC5O kA2v3M8SuUcpd dHI+VS74XVSnHR09sPNgh FCjo3qdhIr9GhGzZARlTE E0wFajOKwkk9TdGCTvF10 cwIZgz0S9OJFw zQhovOZnSkZpkHI8rE4dT Cnydzqgo3opfhwzSmwxj5 lxdy32vY21F64lDSmgXIB oPSIzMCUiIHZh aJxfps2yiH1tLe6+PGNvb CN2fYK9dV4aEuNuKqU4DN ntA922DhXcmBWzAuiku6k pj5wmqOf6IwUo OBYkdfAkyAmkKFL9m3BeN s95O84pLLzbQRPlOASmIK FvPZKowPkiub8vmN0hHr5 +DY0qq5atwn35 zT15jVS+QJYgDJD3vZslL LzrAHZvhB8hPVbuYuK5AH UvVxKcwC32oRRuQDsxLg2 whVggmPrzQM3v MMUqkkfud552WfLwx1fcH VJwxJGwTCqrUED0C94hl4 E6DTXpRCOlDHE9sSA4tX1 hbGlnbjogbGVm dDsgdmVydGljYWwtYWxpZ 903ETWurAveBpCkgXAsG3 zgpnAXID7zBxmjxSC+PHR tDJP2aXmbCOnd NEJsdM2pXWXtJ1q3LzAoC tK1CThyE5HhtpE6PAHqsD XiGMBnyKICfP6epkrta3s vcjogIzAwMDAw MRh3DXy0JCZitCarSpAgH DU3VtH6XYA6kFVgqY3dyR wztbcokL1lZzc+RklOOjw vdGQ+PHRkIHN0 xXowFDwaSVNdcG4oEQKhM 7t9PiZiTbO9YAwuH5Vptt W8RGIuuXVpMFJmdLJPtR2 kvkqjc4gebkjn PvBuVRShMFr5LDz9GVLbo QmzOqHkVJY0DhC7EWZ2qZ FsiF7ajHgfogdbjG6kWci +TVJOOjwvdGQ+ SUYuGGT0yOqdUSagINUcw F2cEHBeE1a5WdAvBtE0GW xsS0BpghC6EQThwTNnKGY anYCVuC3gzyso o4ugyemkLaIeWCNiGPv9P Ie7OSJsqPlbQeQwNET9Jw A3EOP7zRTuvI1ewRiqhty vbP6gZyb+UGF5 WEX5OB53JK15C3UjEcguf GFibGU+PHRhYmxlIHdpZH RoPScxMDAlJyBzdHlsZT0 bUy4sZKTkZRMx bGx (more content not included)... Normal [facility] Chlamydia trachomatis, TERESE L Con 08-25-2020 Chlamydia trachomatis, TERESE LC Negative Invalid Interpretation Code Negative [facility] Comment on above: Order Comment: Send results to Dr. Rojsa Result Comment: Perf ormed At: =G [facility] [place] [id number] Beatriz Reyez MD Ph:[phone] Performed By: #### 1 [id number] ####[facility] (DEFAULT)[address] [place] [address] C Urineon 08-24-2020 C Urine No growth at 2 days. Normal [facility] Comment on above: Performed By: #### 6 [id number] ####[facility] (DEFAULT)[address] [place] [address] .Auto Diff 1on 08-22-2020 Auto Morrison % 7 % Normal 1-12 [facility] Comment on above: Performed By: #### 1 [id number], [id number], [id number], [id number], [id number] ####[facility] (DEFAULT)[address] [place] [address] Baso Abs# 0.0 x10 Normal 0.0-0.2 [facility] Comment on above: Performed By: #### 1 [id number], [id number], [id number], [id number], [id number] ####[facility] (DEFAULT)[address] [place] [address]996 Basophils/100 WBC (Bld) 0.2 % Normal 0.2-2.0 [facility] Comment on above: Performed By: #### 1 [id number], [id number], [id number], [id number], [id number] ####[facility] (DEFAULT)[address] [place] [address] 28791 Eos Abs# 0.1 x10 Normal 0.0-0.4 [facility] Comment on above: Performed By: #### 1 [id number], [id number], [id number], [id number], [id number] ####[facility] (DEFAULT)[address] [place] [address]205 Eosinophils/100 WBC (Bld) 1.3 % Normal 0.9-4.0 [facility] Comment on above: Performed By: #### 1 [id number], [id number], [id number], [id number], [id number] ####[facility] (DEFAULT)[address] [place] [address] Lymph Abs# 1.9 x10 Normal 1.3-2.9 [facility] Comment on above: Performed By: #### 1 [id number], [id number], [id number], [id number], [id number] ####[facility] (DEFAULT)[address] [place] [address] Lymphocytes/100 WBC (Bld) 35 % Normal 14-48 [facility] Comment on above: Performed By: #### 1 [id number], [id number], [id number], [id number], [id number] ####[facility] (DEFAULT)[address] [place] [address] Morrison Abs# 0.4 x10 Normal 0.0-0.8 [facility] Comment on above: Performed By: #### 1 [id number], [id number], [id number], [id number], [id number] ####[facility] (DEFAULT)[address] [place] [address] Neut Abs# 3.0 x10 Normal 1.5-9.2 [facility] Comment on above: Performed By: #### 1 [id number], [id number], [id number], [id number], [id number] ####[facility] (DEFAULT)[address] [place] [address] Neutrophils/100 WBC (Bld) 56 % Normal 44-88 [facility] Comment on above: Performed By: #### 1 [id number], [id number], [id number], [id number], [id number] ####[facility] (DEFAULT)[address] [place] [address] C Genitalon 08-22-2020 C Genital Send results to Dr. Rojas [employer] worker Heavy growth of Gardnerella vaginalis No HILTON performed on this organism No growth of GC at 3 days. Gram Negative Diplococci not seen. 4+ Gram Positive Cocci 4+ Gram Negative Rods 2+ Gram Positive Rods 1+ White Blood Cells Normal [facility] Comment on above: Performed By: #### 2 [id number] ####[facility] (DEFAULT)[address] [place] [address] 26490 CBC w/ Auto Diffon 04-19-202 1 Erythrocyte distribution width (RBC) [Ratio] 14.3 % Normal 11.5-15.0 [facility] Comment on above: Performed By: #### 1 [id number], 79113032, 2721345, 1110222493, [id number] ####[facility] (DEFAULT)[address] [place] [address] Hematocrit (Bld) [Volume fraction] 34.4 % Normal 33.7-40.4 [facility] Comment on above: Performed By: #### 1 [id number], 76924538, 1961928, 6131493240, [id number] ####[facility] (DEFAULT)[address] [place] [address] Hemoglobin (Bld) [Mass/Vol] 11.2 g/dL Low 11.3-15.9 [facility] Comment on above: Performed By: #### 1 [id number], 11197021, 5994171, 2525548320, [id number] ####[facility] (DEFAULT)[address] [place] [address] Instr WBC 5.4 x10 Invalid Interpretation Code [facility] Comment on above: Performed By: #### 1 [id number], 83387103, 2606487, 9960097514, [id number] ####[facility] (DEFAULT)[address] [place] [address] 69501 Man Diff? Auto Normal [facility] Comment on above: Performed By: #### 1 [id number], 73829054, 6200538, 6836562231, [id number] ####[facility] (DEFAULT)[address] [place] [address] 86295 MCH (RBC) [Entitic mass] 28 pg Normal 24-34 [facility] Comment on above: Performed By: #### 1 [id number], 50652700, 9890010, 7218229296, [id number] ####[facility] (DEFAULT)[address] [place] [address] 99158 MCHC (RBC) [Mass/Vol] 33 g/dL Normal 26-37 [facility] Comment on above: Performed By: #### 1 [id number], 53518843, 1562233, 0782744040, 7299042734 ####[facility] (DEFAULT)[address] [place] [address] 47161 MCV (RBC) [Entitic vol] 84 fL Normal 81-100 [facility] Comment on above: Performed By: #### 1 [id number], 78691634, 8514978, 3635664568, 9469780145 ####[facility] (DEFAULT)[address] [place] [address] Platelet 200 x10 Normal 138-427 [facility] Comment on above: Performed By: #### 1 [id number], 68133851, 0449122, 8075486172, [id number] ####[facility] (DEFAULT)[address] [place] [address] Platelet mean volume (Bld) [Entitic vol] 11.3 fL High 6.3-10.2 [facility] Comment on above: Performed By: #### 1 [id number], 20449576, 7484338, 6867178109, 8256554060 ####[facility] (DEFAULT)[address] [place] [address] 58415 RBC 4.07 x10 Normal 3.70-5.30 [facility] Comment on above: Performed By: #### 1 846116607, 72831445, 9122046, 9882510490, 4548983756 ####[facility] (DEFAULT)[address] [place] [address] 62545 WBC 5.4 x10 Normal 3.5-10.5 [facility] Comment on above: Performed By: #### 1 312738048, 93484630, 2863136, 6932222833, 8414337891 ####[facility] (DEFAULT)[address] [place] [address] 61371 CMP Standardon 08-22-2020 eGFR Non AA >60 Invalid Interpretation Code [facility] Comment on above: Performed By: #### 1 [id number], 23902548, 3079988, 3218648169, 9560743250 ####[facility] (DEFAULT)[address] [place] [address] 50396 eGFR AA >60 Invalid Interpretation Code [facility] Comment on above: Result Comment: Wheel Press Clerk alejandra Kidney disease could be indicated at eGFRs of less than 60 ml/min/1.73m2. Kidney Failure is indicated at less than 15 ml/min/1.73m2 Performed By: #### 1 [id number], 09504748, 2891370, 5386160643, 5032890122 ####[facility] (DEFAULT)[address] [place] [address] 74301 Albumin [Mass/Vol] 4.6 g/dL Normal 3.5-5.0 [facility] Comment on above: Performed By: #### 1 [id number], 05062084, 2548760, 6307501423, 2288592194 ####[facility] (DEFAULT)[address] [place] [address] 72437 Albumin/Globulin [Mass ratio] 1.8 {ratio} Normal 1.4-2.6 [facility] Comment on above: Performed By: #### 1 977752269, 38428020, 4659427, 7834574173, 0294003825 ####[facility] (DEFAULT)[address] [place] [address] 77406 Alk Phos 61 IU/L Normal 32-91 [facility] Comment on above: Performed By: #### 1 335774241, 03053742, 1507588, 6209467515, 0321589219 ####[facility] (DEFAULT)[address] [place] [address] 34544 ALT [Catalytic activity/Vol] 16.0 U/L Normal 14.0-54.0 [facility] Comment on above: Performed By: #### 1 250962605, 20869508, 5088565, 1463733452, 5632878088 ####[facility] (DEFAULT)[address] [place] [address] 69645 Anion gap [Moles/Vol] 14.0 mmol/L Normal 5.0-19.0 [facility] Comment on above: Performed By: #### 1 [id number], 85149420, 8438289, 8050277891, 2934753696 ####[facility] (DEFAULT)[address] [place] [address] 13430 AST [Catalytic activity/Vol] 16 U/L Normal 15-41 [facility] Comment on above: Performed By: #### 1 [id number], 80675260, 0035011, 5215705141, 0049699924 ####[facility] (DEFAULT)[address] [place] [address] 83314 Bili Total 0.8 mg/dL Normal 0.3-1.2 [facility] Comment on above: Performed By: #### 1 746300240, 16157068, 3021389, 9575274715, 5103787373 ####[facility] (DEFAULT)[address] [place] [address] 95635 Calcium [Mass/Vol] 9.3 mg/dL Normal 8.9-10.3 [facility] Comment on above: Performed By: #### 1 410912293, 34711863, 4245800, 6913388621, 2024669240 ####[facility] (DEFAULT)[address] [place] [address] 50252 Chloride [Moles/Vol] 105 mmol/L Normal 101-111 [facility] Comment on above: Performed By: #### 1 068959171, 90650194, 3319445, 8325774971, 2937974832 ####[facility] (DEFAULT)[address] [place] [address] 56578 CO2 [Moles/Vol] 21 mmol/L Normal 21-32 [facility] Comment on above: Performed By: #### 1 191207240, 29645398, 6136197, 9613888022, 8099467876 ####[facility] (DEFAULT)[address] [place] [address] 86865 Creatinine [Mass/Vol] 0.90 mg/dL Normal 0.60-1.30 [facility] Comment on above: Performed By: #### 1 375402502, 16261213, 7889808, 8424571917, 4318517796 ####[facility] (DEFAULT)[address] [place] [address] 35762 Globulin (S) [Mass/Vol] 2.6 g/dL Normal 1.5-4.3 [facility] Comment on above: Performed By: #### 1 524484671, 03640433, 2394041, 6692715025, 8090162282 ####[facility] (DEFAULT)[address] [place] [address] 81767 Glucose [Mass/Vol] 99.0 mg/dL Normal 74.0-118.0 [facility] Comment on above: Performed By: #### 1 162508462, 24162111, 3546788, 4873682111, 7137420465 ####[facility] (DEFAULT)[address] [place] [address] 54184 Osmolality 272 mOsm/L Invalid Interpretation Code [facility] Comment on above: Performed By: #### 1 593113773, 27240052, 9024366, 9718023288, 9528610041 ####[facility] (DEFAULT)[address] [place] [address] 78501 Potassium [Moles/Vol] 3.8 mmol/L Normal 3.6-5.1 [facility] Comment on above: Performed By: #### 1 899150728, 12235179, 5164278, 6640501869, 5939113427 ####[facility] (DEFAULT)[address] [place] [address] 08641 Protein [Mass/Vol] 7.2 g/dL Normal 6.5-8.1 [facility] Comment on above: Performed By: #### 1 594143729, 88846244, 4409787, 3217489980, 1228121189 ####[facility] (DEFAULT)[address] [place] [address] 36468 Sodium [Moles/Vol] 136.0 mmol/L Normal 136.0-144.0 [facility] Comment on above: Performed By: #### 1 972655653, 83390277, 6908994, 3566499147, 2136492016 ####[facility] (DEFAULT)[address] [place] [address] 23791 Urea nitrogen [Mass/Vol] 13 mg/dL Normal 8-26 [facility] Comment on above: Performed By: #### 1 775357410, 13768277, 1964710, 3826132051, 4563764029 ####[facility] (DEFAULT)[address] [place] [address] Urea nitrogen/Creatinine [Mass ratio] 14.0 mg/mg Normal 4.6-16.2 [facility] Comment on above: Performed By: #### 1 850079636, 27484821, 1470503, 1258595322, 5677003163 ####[facility] (DEFAULT)[address] [place] [address] ED Clinical Summaryon 2020 ED Clinical Summary [facility] - Emergency Department [address] [place] [address] ED Clinical Summary PERSON INFORMATION Name: TALHA BELL Age: 35 Years Sex: FEMALE : 1985 MRN: Acct#: Visit Reason: Dysuria; Weakness; STD exposure; Pelvic pain; Flank pain; PELIVS PAIN, LEFT KIDNEY PAIN Arrival: 08/22/2020 17:41:37 Discharge: 08/22/2020 19:50:00 LOS: 000 02:09 Check In: 08/22/2020 17:41:37 Checkout:08/22/2020 19:50:00 Address: [address] [place] [address] PCP: SAVANNAH RODRIGUEZ PROVIDER INFORMATION Provider Role [...] States it was completed by Dr. 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 Patient states that she has been doing [...] transmitted infections. States her boyfriend worked in [place] for approximately 1 month and states that [...] she has a follow-up appointment with her SUPERVISOR POLISHING on Saturday of this week however states [...] 30 mL, IV Push, As Directed, PRN: senior online marketing manager Prescriptions Prescribed B (more content not included)... Normal [facility] ED Note - Physicianon 2020 ED Note [...] States it was completed by Dr. 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 Patient states that she has been doing [...] transmitted infections. States her boyfriend worked in [place] for approximately 1 month and states that [...] she has a follow-up appointment with her SUPERVISOR POLISHING on Saturday of this week however states [...] 30 mL, IV Push, As Directed, PRN: senior online marketing manager Prescriptions Prescribed Bactrim DS 800 mg-160 mg [...] Medical history: Resolved URI (upper respiratory infection) (23218730): Resolved.. Surgical history: section (48703480). Comments: 09/16/2017 17:09 EDT - Denzel NICHOLAS, Mildred X4 Tonsillectomy (564638325). TL - Tubal ligation (331511301).. Social history: Social & Psychosocial Habits Alcohol [...] smoking 2012 (more content not included)... Normal [facility] ED Patient Summaryon 021 ED Patient Summary [facility] - Emergency Department [address] [place] [address] 8[address]75 PATIENT DISCHARGE INSTRUCTIONS Patient Information Name: TALHA BELL Age: 35 Years Date of : 1985 Reason For Visit: Dysuria; Weakness; STD exposure; Pelvic pain; Flank pain; PELIVS PAIN, LEFT KIDNEY PAIN Arrival Time: 08/22/2020 17:41:37 Primary Care Physician: SAVANNAH RODRIGUEZ Attending Physician: Tiburcio Kennedy DO Comment: Visit Diagnosis: Diagnoses This Visit Dysuria ([id number]) Dysuria (R30.0) Flank pain (R10.9) Flank pain (512179010) Pelvic pain ([id number]) STD exposure ([id number]) Vaginal discharge (N89.8) Weakness (58420446) Prescription Information: If you have been given a prescription for narcotics, seek immediate medical attention if you have any difficulty breathing or any sudden status changes such as confusion and sleepiness. If you or anyone you know is experiencing suicidal thoughts, mental health, alcohol and/or drug addiction problems; contact the [facility] 26/11 Crisis Hotline -Text 9UNLB dp 164766. If you received any narcotics, sedation, or [...] legal documents With: Address: When: SAVANNAH RODRIGUEZ [address] [place] [address] [address] [place] [phone] Business (1) Within 3 to 5 days Comments: Please follow-up with your SUPERVISOR POLISHING in 3 to 5 days. 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 Continue to monitor your symptoms and return here to the emergency department if you develop any fever, chills, worsening pain, if you develop any abdominal pain or any other worsening or concerning symptoms. Medication Information: The exam and treatment you received today in the [facility] Emergency Department were for an urgent problem and are not intended as complete care. It is important for you to follow up with a doctor, nurse practitioner, or physician?s assistant project manager for ongoing care. If your symptoms become [...] so we can reach you if necessary. [facility] Emergency Department has provided you with a complete list of medications post discharge. Please inform your human resource assistant/provider of your visit and for further instruction on these medications. Any specific questions regarding your chronic medications and dosages should be discussed with your primary care physician(s) and/or pharmacist. New Medications [facility]/pharmacy #[id number], [address] [place], [place] [phone], [phone] sulfamethoxazole-trim ethoprim (Bactrim DS 800 mg-160 mg oral tablet) 1 tab(s) Oral 2 times a day. Refills: 0. Medications to Continue That Have Not Changed Other Medications (more content not included)... [facility] Extra Redon 08-22-2020 Tube Collected Yes Invalid Interpretation Code [facility] Comment on above: Performed By: #### 1 [id number], 01742218, 9436269, 9353584094, [id number] ####[facility] (DEFAULT)[address] [place] [address] 12507 UA Suiga0so 08-22-2020 UA Amorph. Rare [facility] Comment on above: Order Comment: Urina lysis Microscopic order added on by [employer] Expert Rules system. Performed By: #### 5 [id number], [id number] ####[facility] (DEFAULT)[address] [place] [address] UA Bacteria Trace [facility] Comment on above: Order Comment: Urina lysis Microscopic order added on by [employer] Expert Rules system. Performed By: #### 5 [id number], [id number] ####[facility] (DEFAULT)[address] [place] [address] UA RBC 0-2 [facility] Comment on above: Order Comment: Urina lysis Microscopic order added on by [employer] Expert Rules system. Performed By: #### 5 [id number], [id number] ####[facility] (DEFAULT)[address] [place] [address] 45746 UA Squam Epi Few [facility] Comment on above: Order Comment: Urina lysis Microscopic order added on by [employer] Expert Rules system. Performed By: #### 5 [id number], [id number] ####[facility] (DEFAULT)[address] [place] [address] UA WBC 0-2 [facility] Comment on above: Order Comment: Urina lysis Microscopic order added on by [employer] Expert Rules system. Performed By: #### 5 8775894, [id number] ####[facility] (DEFAULT)[address] [place] [address] UA w Culture if Ind Standard on 08-22-2020 Breakpoint UA Normal [facility] Comment on above: Performed By: #### 5 [id number], [id number] ####[facility] (DEFAULT)[address] [place] [address] Color (U) Yellow Normal [facility] Comment on above: Performed By: #### 5 6196195, [id number] ####[facility] (DEFAULT)[address] [place] [address] Culture? Not Indicated Invalid Interpretation Code [facility] Comment on above: Performed By: #### 5 8671763, [id number] ####[facility] (DEFAULT)[address] [place] [address] Glucose (U) [Mass/Vol] Negative [facility] Comment on above: Performed By: #### 5 5266399, [id number] ####[facility] (DEFAULT)[address] [place] [address] Ketones Ql (U) TRACE [facility] Comment on above: Performed By: #### 5 5054563, [id number] ####[facility] (DEFAULT)[address] [place] [address] Micro? Indicated Invalid Interpretation Code [facility] Comment on above: Performed By: #### 5 9261906, [id number] ####[facility] (DEFAULT)[address] [place] [address] UA Bilirubin Negative Normal [facility] Comment on above: Performed By: #### 5 7277801, [id number] ####[facility] (DEFAULT)[address] [place] [address] 68458 UA Blood Negative Normal NEGATIVE [facility] Comment on above: Performed By: #### 5 5285529, [id number] ####[facility] (DEFAULT)[address] [place] [address] 69052 UA Clarity CLEAR Normal CLEAR [facility] Comment on above: Performed By: #### 5 0740230, [id number] ####[facility] (DEFAULT)[address] [place] [address] UA Leuk Est TRACE Abnormal NEGATIVE [facility] Comment on above: Performed By: #### 5 9871283, [id number] ####[facility] (DEFAULT)[address] [place] [address] UA Nitrite Positive Abnormal NEGATIVE [facility] Comment on above: Performed By: #### 5 1744290, [id number] ####[facility] (DEFAULT)[address] [place] [address] UA pH 7.0 Normal 5-8 [facility] Comment on above: Performed By: #### 5 0579594, [id number] ####[facility] (DEFAULT)[address] [place] [address] UA Protein Negative Normal NEGATIVE [facility] Comment on above: Performed By: #### 5 4223847, [id number] ####[facility] (DEFAULT)[address] [place] [address] UA Spec Grav 1.020 Normal 1.001-1.035 [facility] Comment on above: Performed By: #### 5 6055957, [id number] ####[facility] (DEFAULT)[address] [place] [address] UA Urobilinogen 0.2 mg/dL Normal 0.2-1.0 [facility] Comment on above: Performed By: #### 5 7213561, [id number] ####[facility] (DEFAULT)[address] [place] [address] Urine Source Clean Catch Normal [facility] Comment on above: Performed By: #### 5 8655031, [id number] ####[facility] (DEFAULT)[address] [place] [address] Wet Mount.on 08-22-2020 Wet Mount. Send results to Dr. 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 Negative for Yeast. 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 Nucleic acid amplification tests include PCR and [...] assay. Performed At: [facility] [address] [facility], [place] [id number] Iram Calvillo 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 ADMIT DX: [...] Slade Date Saved: 03/01/2020 09:51 am Normal [facility] Vital Signs Date Time Vital Sign Value Performing Clinician Facility 03-27-2023 10:03-0500 Blood Pressure Location ELPIDIO HENSON [facility] 03-27-2023 10:03-0500 Body temperature 97.16 [degF] ELPIDIO HENSON [facility] 03-27-2023 10:03-0500 Diastolic blood pressure 84 mm[Hg] ELPIDIO HENSON [facility] 03-27-2023 10:03-0500 Heart rate 74 /min ELPIDIO HENSON [facility] 03-27-2023 10:03-0500 Systolic blood pressure 128 mm[Hg] [facility] Date Encounter Type Care Provider Facility Start: 07-16-2023 End: 07-17-2023 ambulatory ELPIDIO HENSON Facility:[facility] Start: 07-16-2023 End: 07-16-2023 Patient encounter procedure ELPIDIO HENSON [facility] Start: 06-06-2023 End: 06-06-2023 ambulatory KALTYN MITCHELL Not Available Start: 05-28-2023 End: 05-28-2023 ambulatory KATLYN MITCHELL Not Available Start: 05-07-2023 ambulatory Eamon Garcia acility:[facility] Start: 05-02-2023 End: 05-03-2023 ambulatory Lowell MAYS Facility:[facility] Start: 05-02-2023 End: 05-02-2023 Patient encounter procedure Lowell MAYS [facility] Start: 04-23-2023 End: 04-23-2023 ambulatory SUMEET VISHAL Not Available Start: 04-18-2023 ambulatory Lowell MAYS Facility :CD:[id number] Start: 03-27-2023 End: 03-28-2023 ambulatory ELPIDIO HENSON Facility:[facility] [place] Start: 03-27-2023 End: 03-27-2023 Patient encounter procedure ELPIDIO HENSON [facility] Start: 02-04-2023 ambulatory ELPIDIO HENSON Facility :[facility] Start: 11-26-2022 End: 11-26-2022 Emergency department patient visit [facility] Start: 01-23-2022 End: 01-23-[address] LOWELL ROJAS Facility:[facility] Start: 11-30-2021 End: 11-30-2021 ambulatory MEMO WOOD Facility:[facility] Start: 06-14-2021 End: 06-14-[address] EARNESTINE HUFF Facility:[facility] Procedures Date Procedure Procedure Detail Performing Clinician Start: 05-02-2023 Transurethral cystoscopy ELPIDIO HENSON Start: 05-06-2019 Hysterectomy ELPIDIO PENG Colonoscopy ELPIDIO HENSON Hysterectomy ELPIDIO HENSON Tonsillectomy ELPIDIO HENSON Immunizations Immunization Date Immunization Notes [facility] hepatitis B vaccine, adult dosage ELPIDIO NATIVIDAD [facility] 02-06-2002 hepatitis B vaccine, adult dosage ELPIDIO NATIVIDAD [facility] 01-07-2002 hepatitis B vaccine, adult dosage ELPIDIO NATIVIDAD [facility] 01-07-2002 measles, mumps and rubella virus vaccine ELPIDIO NATIVIDAD [facility] 09-03-1988 diphtheria, tetanus toxoids and acellular pertussis vaccine ELPIDIO NATIVIDAD [facility] 09-03-1988 Hib, unspecified formulation ELPIDIO NATIVIDAD [facility] 12-13-1986 diphtheria, tetanus toxoids and acellular pertussis vaccine ELPIDIO NATIVIDAD [facility] 12-12-1985 measles, mumps and rubella virus vaccine ELPIDOI NATIVIDAD [facility] 1984 diphtheria, tetanus toxoids and acellular pertussis vaccine ELPIDIO NATIVIDDA [facility] 1984 diphtheria, tetanus toxoids and acellular pertussis vaccine ELPIDIO HENSON [facility] 1985 diphtheria, tetanus toxoids and acellular pertussis vaccine ELPIDIO HENSON [facility] Payers Date Payer Category Payer Self-pay 2022 Unknown [id number] 1984 Unknown [id number] 2.16.84 [id number] 1984 Unknown [id number] 2.16.84 0.1.040457.3.579.2.593 1984 Unknown [id number] 2.16.84 0.1.632552.3.579.2.593 1984 Unknown [id number] 2.16.8 40.1.288325.3.579.2.173 1984 Unknown [id number] 2.16.84 0.1.021582.3.579.2.1259 1984 Unknown [id number] 2.16.840 .1.381689.3.579.2.1259 1984 Unknown [id number] 2.16.84 0.1.149182.3.579.2.1259 1984 Unknown [id number] 2.16.84 0.1.655658.3.579.2.1259 1984 Unknown [id number] 2.16.8 40.1.326954.3.579.2.727 1984 Unknown [id number] 2.16.8 40.1.406087.3.579.2.727 1984 Unknown [id number] 2.16.8 40.1.361476.3.579.2.727 1984 Unknown [id number] 2.16.8 40.1.504077.3.579.2.727 1959 Unknown [id number] 1959 Unknown [id number] Unknown [id number] 2.16.8 40.1.152753.3.579.2.531 Social History Date Type Detail Facility Start: 03-27-2023 Tobacco smoking status Never [facility] Sex Assigned At Female [facility] Functional Status Date Assessment Result Facility 05-02-2023 Functional Status N/A [facility] 03-27-2023 Functional Status N/A [facility] Clinical Notes 03-22-2020 to 05-02-2023 Note Date & Type Note Facility 05-02-2023 Note [id number] [facility] 05-02-2023 Note Cystoscopy with Uret hral Dilation [...] you have a fever over 100 degrees [facility] 05-02-2023 Hospital Discharg e instructions Patient Education [...] Up Care 04/30/2023 10:52:47 With:ELPIDIO HENSON Address: [address] [place] [address] [facility] (1) When:6 weeks Comments:Call for followup appointment [facility] 03-27-2023 Hospital Discharg e instructions Patient [...] including vitamins, herbs, eye drops, creams, and htcf-jak-hkcuiwp medicines. Any problems you or family members [...] provider tells you to take them. Taking wirp-uzj-pqdyksu medicines, vitamins, herbs, and supplements. Tests You [...] Follow these instructions at home: Medicines Take ykxo-eyf-klespie and prescription medicines only as told by [...] provider. Document Revised: 01/03/2022 Document Reviewed: 12/02/2020 [employer] Patient Education 2022 [employer]. 03/27/2023 10:54:11 Overactive Bladder, Adult Overactive Bladder, [...] your health care provider. General instructions Take imep-miv-obcfxkg and prescription medicines only as told by [...] provider. Document Revised: 01/09/2021 Document Reviewed: 01/09/2021 [employer] Patient Education 2022 [employer]. Follow Up Care 02/04/2023 08:51:15 With:ELPIDIO HENSON PA-C, URL Address: [address] [place] [address] [phone] When: Unknown Comments:sched cysto/poss UD [facility] 02-15-2021 Note Education Materials Infectious Disease [...] provider. Document Revised: 04/07/2020 Document Reviewed: 04/07/2020 [employer] Patient Education ? 2020 [employer]. COVID-19: How to Protect Yourself and Others Know how it spreads ? There is currently no vaccine to prevent coronavirus disease 2019 (COVID-19). ? The best way to prevent illness is to avoid being exposed to this virus. ? The virus is thought to spread mainly from wybxxu-zf-vuhpbf. ? Between people who are in close [...] are not readily available, use a hand spooler operator that contains at least 60% alcohol. Cover [...] at higher risk of getting very sick.www.cdc.gov/coronavirus/20 19-ncov/xifh-iucka-hfyeozpnzwm/ ixirqd-xy-roxmyj-risk.html Cover your mouth and nose with a [...] available, clean your hands with a hand spooler operator that contains at least 60% alcohol. Clean and disinfect ? Clean AND disinfect frequently touched surfaces daily. This includes tables, doorknobs, light switches, countertops, handles, desks, phones, keyboards, toilets, faucets, and sinks. www.cdc.gov/coronavirus/2019-nc ov/zkuhdxe-bwdfjby-hjkh/disinfe kgtej-fzpw-apcj.html ? If surfaces are dirty, clean them: Use detergent or soap and water prior to disinfection. ? Then, use a household disinfectant. You can see a list of [facility]-registered household disinfectants here. cdc.gov/coronavirus 01/06/2020 This information is not intended to replace advice given to you by your health care provider. Make sure you discuss any questions you have with your health care provider. Document Revised: 01/14/2020 Document Reviewed: 11/12/2019 [employer] Patient Education ? 2019 [employer]. COVID-19 Frequently Asked Questions COVID-19 (coronavirus disease) is an infection that is caused by a virus (more content not included)... [facility] 08-22-2020 Note Education Materials Obstetrics and Gynecology [...] this condition includes: ? Antibiotic medicine. ? Bkmt-jcn-uaiuywt medicines to treat discomfort. ? Drinking enough [...] these instructions at home: Medicines ? Take ghxj-scp-rfpuyev and prescription medicines only as told by [...] provider. This i (more content not included)... [facility] 03-22-2020 Note Nasal swab performed without complication. Patient tolerated well. Education given. Patient verbalized understanding. [Electronically Signed on: 03/22/2020 14:52 EST] Millicent Galdamez RN [Verified on: 03/22/2020 14:52 EST] Millicent Galdamez RN [facility] Evaluation + Plan note No data available for this section [facility] Evaluation + Plan note Future Appointments Appointment Date:07/16/2023 09:00:00 AM Scheduled Provider:ELPIDIO HENSON PA-C Location:[facility] [place] Appointment Type:URO Office Visit [facility] Hospital Discharge instructions No data available for this section [facility] Progress note No data available for this section [facility] Summary Purpose Family History No Family [...] content) DATE CREATED AUTHOR 02/28/[address] [facility] DATE CREATED AUTHOR AUTHOR'S ORGANIZ ATION 02/04/2022 [facility] DATE CREATED AUTHOR AUTHOR'S ORGANIZ ATION 11/26/2022 [facility] DATE CREATED AUTHOR AUTHOR'S ORGANIZ ATION 05/29/2023 [facility] EPIC DATE CREATED AUTHOR AUTHOR'S ORGANIZ ATION 06/07/2023 [facility] EPIC DATE CREATED AUTHOR AUTHOR'S ORGANIZ ATION 07/18/2023 [facility] DATE CREATED AUTHOR AUTHOR'S ORGANIZ ATION 08/03/2023 [facility] Patient Care team informatio n (unrecognized section and content) Personnel Name: Sumeet VÁSQUEZ DO Address: Address: [address] , [place] Personnel Name: SAVANNAH RODRIGUEZ MD Address: Address: [address] [place] [address] Personnel Name: SAVANNAH RODRIGUEZ MD Address: Address: [address] [place] [address] FOR RECORDS PERTAINING TO PATIENTS WHO ARE [...] BE BASED ON THE PRIMARY CLINICAL RECORDS. [facility]. provides no warranty or guarantee of the accuracy or completeness of information in this document.
[2023-08-27 13:07] LABS: Basophils Percent Auto 0.5 % (0.2-2.0); Eosinophils Absolute Auto 0.1 10^3/uL (0.0-0.7); Eosinophils Percent Auto 1.3 % (0.9-7.0); Hematocrit 36.7 % (36.0-48.0); Hemoglobin 12.3 g/dL (12.0-16.0); Immature Granulocytes Abs Auto 0.02 10^3/uL (0.00-0.03); Immature Granulocytes Pct Auto 0.3 % (0.0-0.5); Lymphocytes Percent Auto 33.7 % (20.5-60.0); Mean Corpuscular HGB Conc 33.5 g/dL (29.9-35.2); Mean Corpuscular Hemoglobin 30.3 pg (26.7-34.0); Mean Corpuscular Volume 90.4 fL (81.0-99.0); Mean Platelet Volume 11.5 fL (9.5-13.5); Monocytes Absolute Auto 0.6 10^3/uL (0.3-0.8); Monocytes Percent Auto 9.3 % (1.7-12.0); Neutrophils Absolute Auto 3.3 10^3/uL (1.4-6.5); Neutrophils Percent Auto 54.9 % (43.0-75.0); Platelet Count 232 10^3/uL (150-450); Red Blood Count 4.06 10^6/uL (4.20-5.40); Red Cell Distribution Width 12.6 % (11.0-15.0); White Blood Count 5.9 10^3/uL (4.0-11.0)
[2023-08-27 13:36] LABS: Thyroid Stimulating Hormone 2.971 uIU/mL (0.358-3.740)
== END 2023-08-27 12:39 | disposition home or self-care (01) ==
LOC: LAB 12:39
PROVIDERS: Visit Provider Obstetrics & Gynecology
DX: N64.52 Nipple discharge (principal)
CPT/HCPCS: 36415; 84146; 84443; 85025

== ENCOUNTER 2023-09-16 08:08 | Outpatient (OUT) | payer BC, SELFPAY ==
--- NOTE | 2023-09-16 08:12 | MR_ITS ---
The [address] [address] Patient Name: TALHA SINGLETON MRN: [id number] date: 1985 Sex: F Assigned Patient Location: MRI Current Patient Location: MRI Accession/Order Number: [id number] Exam Date: 09/16/2023 08:59 Report Date: 09/16/2023 11:21 At the request of: VELMA RODGERS Procedure: MR pituitary wo/w con MR pituitary wo/w con, 09/16/2023 8:59 AM EDT INDICATION: Elevated Prolactin Level R79.89 COMPARISON: There is no appropriate prior study for comparison. TECHNIQUE: Multiplanar, multisequential MRI images of brain were obtained with injection of contrast. FINDINGS: The cerebral sulci as well as ventricular system are appropriate for age. There is no restricted diffusion. Pituitary gland: There is an hypointense nonenhancing lesion in the inferior central portion of the pituitary gland measuring 1.2 x 1.3 x 2.5 mm (CC, AP, transverse) most likely consistent with a small microadenoma. No other abnormality of the pituitary gland is noted. The pituitary stalk is in midline. The cavernous sinuses and optic chiasma are unremarkable. There is no intracranial mass, mass effect, midline shift, intra or extra-axial fluid collection or large hemorrhage. Normal flow-void in the intracranial vessels is noted. The visualized portions of orbits, mastoid air cells as well as paranasal sinuses are unremarkable. MR/MR pituitary wo/w con IMPRESSION: Findings suggestive of small microadenoma in the center of pituitary gland. Otherwise, no significant abnormality is noted. Electronically authenticated by: ELIAS INTERIANO Date: 09/16/2023 11:21
--- OUTSIDE RECORDS SUMMARY | 2023-09-16 08:30 | XMS_ITS | CCD ---
Author Organization [facility] Care Team Providers Care Undercutter Operator Name Role Phone MEMO WOOD Admitting Unavailable NINA, MEMO Attending Unavailable MEMO WOOD Consulting Unavailable JENNIFER, DR SAVANNAH Underwood Primary Care Unavailable KARASIK, DR ETIENNE Consulting Unavailable AMANDAESTANNABELLE, DR SAVANNAH Underwood Primary Care Unavailable KARASIPreston, DR ETIENNE Admitting Unavailable CRYSTAL, DR ETIENNE Attending Unavailable DARIA, DR COLBY Attending Unavailable DARIA, DR COLBY Admitting Unavailable TERESO, DR REAL Mccain Consulting Unavailable AMANDAESTANNABELLE, DR SAVANNAH Underwood Primary Care Unavailable HAY, DR COLBY Consulting Unavailable TIBURCIO OROZCO Consulting Unavailable Sumeet VÁSQUEZ Primary Care Physician JENNIFER, SAVANNAH Underwood Primary Care Physician KATLYN MITCHELL Attending Unavailable SUMEET VÁSQUEZ Attending Unavailable ELPIDIO HENSON Attending Unavailable Sumeet VÁSQUEZ Referring Unavailable ELPIDIO HENSON Attending Unavailable Lowell MAYS Attending Unavailable Lowell MAYS Admitting Unavailable Lowell MAYS Referring Unavailable Lowell MAYS Attending Unavailable KATLYN MITCHELL Attending Unavailable SUMEET VÁSQUEZ Attending Unavailable Eamon Leach Attending Unavailab Eamon Del Cid Admitting Unavailab le Savannah Rodriguez Primary Care Unavailable Allergies Allergy Classification Reported Allergen(s) Allergy Type Date of Onset Reaction(s) Facility (2 sources) levoFLOXacin; Translations: [Levaquin] Drug Allergy 3 [facility] Repository (4 sources) Bee/Wasp/Ant venom; Translations: [Bee Stings] Propensity to adverse reactions to substance Swelling (finding) [facility] (3 sources) levoFLOXacin; Translations: [levofloxacin] Drug Allergy [facility] (1 source) levoFLOXacin Drug Allergy [facility] Repository Medications Current Medications Medication Drug Class(es) [...] day(s), # 9 tab(s), Refills(s) 0, Pharmacy: [facility]/pharmacy #[id number], 157, cm, 03/27/23 10:11:00 EST, [...] afterwards, # 2 cap(s), Refills(s) 0, Pharmacy: [facility]/pharmacy #[id number], 157, cm, 03/27/23 10:11:00 EST, [...] Viral infection (3 sources) Genital herpes simplex 03-27-2023 Chronic Past or Other Problems Problem Classification Problem Date Documented Da te Episodic/Chronic Other aftercare (1 source) Other mcc (current) drug therapy; Translations: [OTH CORRECTION CURRENT DRUG THERAPY] Onset: 06-15-2021 Episodic Residual codes; unclassified (1 source) Acquired absence of both cervix and uterus; Translations: [ACQUIRED ABSENCE BOTH CERVIX AND UTERUS] Onset: 06-15-2021 Episodic Results Test Name Value Interpretation Reference Range Facility Consent for Procedure/Surger yon 05-02-2023 Consent for Procedure/Surgery [id number]# 1.00TIFF Normal [facility] Consent for Treatmenton 04-06 Consent for Treatment [id number]#1 .00TIFF Normal [facility] Inpatient Patient Summaryon 05-02-2023 Inpatient Patient Summary [address] [address] Clinical Summary Person Information Name: TALHA SINGLETON Age: 37 Years : 1985 Sex: Female PCP: SAVANNAH RODRIGUEZ MD Marital Status: Race: Other Race Ethnicity: Non- or Language: Thai Visit Id: Visit Reason: OVER ACTIVE BLADDER, INCOMPLETE BLADDER EMPTY Speciality: Acuity: Enc Type: Outpatient Med Service: Surgery Arrival: 05/02/2023 12:09:38 Discharge: Dispo Type: Address: [address] [place] [id number] Provider Notes: Diagnosis: Problems Active Ovarian cyst [...] Follow up: With: Address: When: ELPIDIO HENSON [address] [place] [address] [place] [id number] [facility] (3) Within 6 weeks Comments: Call for followup appointment Type Location Start [facility] URO Office Visit [facility] EU Charisma 07/16/2023 9:00 AM 07/16/2023 9:15 AM Confirmed Patient Education Information: EU - Cystoscopy with Urethral Dilation Discharge Instructions (Custom) [facility] IntraOperative Documentson 1 07-03-2022 IntraOperative Documents [id number]# 1.00TIFF [facility] Main OR Intraoperative Recor don 05-02-2023 Main OR Intraoperative Record IntraOp Document Type FTURO Summary Primary Physician: Lowell MAYS MD Finalized Date/Time: 05/02/23 13:28:39 Pt. Name: TALHA SINGLETON/Sex: 1985 Female Med Rec #: [id number] Physician: Lowell MAYS MD Financial #: [id number] Pt. Type: O Room/Bed: / Admit/Disch: 05/02/23 [...] Rock Barron Role Performed Surgeon - Primary Flower Cheniller - Primary Scrub - Primary Time In [...] 13:27 Shilpi Epperson RN 05/02/23 13:28 Normal [facility] Main OR Preoperative Recordo n 05-02-2023 Main OR Preoperative Record Holding Area Document Type FTURO Summary Primary Physician: Lowell MAYS MD Finalized Date/Time: 05/02/23 12:31:22 Pt. Name: TALHA SINGLETON/Sex: 1985 Female Med Rec #: [id number] Physician: Lowell MAYS MD Financial #: [id number] Pt. Type: O Room/Bed: / Admit/Disch: 05/02/23 [...] 12:29 Jeanette Rodríguez RN 05/02/23 12:31 Normal [facility] Operative Reporton Operative Report Patient: TALHA SINGLETON Age: 37 years Sex: Female : 1985 Associated Diagnoses: None Author: Lowell MAYS MD Procedure Operative Information Details: Date/ Time: 05/02/2023 13:30:00. 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 Post-Op Dx: Same. Anesthesia [...] urine. The Urethra was dilated to: 30 Bulgarian w/ sounds, This causes minimal bleeding.. Devices Implanted: None. Removal: Cystoscope is removed, The patient tolerated it well. Postoperative Information Discharge: Patient is discharged home with antibiotic coverage, Follow up arranged, Follow up with Sally Henson PA-C in about six weeks. . Normal [facility] Comment on above: Result Comment: Elec tronically Signed By: Lowell MAYS MD\.br\Date and Time Signed: 05/02/23 13:35 EST Outpatient Surgery Discharge Instructionon 05-02-2023 Outpatient Surgery Discharge Instruction [address] [address] Patient Discharge Instructions PERSON INFORMATION [...] Follow up: With: Address: When: ELPIDIO HENSON [address] [place] [address] [facility] [place] [place] [id number] [facility] (1) Within 6 weeks Comments: Call for followup appointment Type Location Start [facility] URO Office Visit [facility] CARLOTTA Zafar 07/16/2023 9:00 AM 07/16/2023 9:15 [...] to serve you. Thank you for choosing [facility] Provider Letteron 04-30-2023 Provider Letter April 30, 2023 TALHA SINGLETON [address] [place] [address] : 1985 To Whom It May Concern, Please excuse above patient from work. Date of Illness: From: 04/19/23 To: 05/07/23 May Return to Work On: 05/07/23 Restrictions: None Sincerely, Lian Hummel CMA/ Dr Lowell Mays MD [facility] Comment on above: Other Comment: WRONG PT! Ambulatory Visit Summaryon 1 05-27-2022 Ambulatory Visit Summary TALHA SINGLETON :1985 Visit Date:03/27/2023 Ambulatory Visit Instructions Your Diagnosis Feeling of incomplete bladder emptying OAB (overactive bladder) History of kidney stones Former smoker Ovarian cyst Tests Performed Urnls Dip Stick Auto w/o Microscopy POC 68393 Your Care Team Attending Physician - ELPIDIO [...] Schedule the Following Appointments Follow Up with ELPIDIO HENSON PA-C, URL When: Comments: sched cysto/poss UD Where: [address] [place] [id number] Medications What How Much When Instructions Unchanged busPIRone (busPIRone 7.5 mg oral tablet) Contact prescribing physician if questions or concerns Unchanged risperidone (risperidone 0.5 mg Tab) 1 Tablets By Mouth 2 times a day Contact prescribing physician if questions or concerns Test Results Urnls Dip Stick Auto w/o Microscopy POC 35775 (03/27/2023) Bilirubin Urine Dipstick - Negative Blood Urine Dipstick - Negative Glucose Urine Dipstick - Negative Ketones Urine Dipstick - Negative Leukocytes Urine Dipstick - Negative Nitrite Urine Dipstick - Negative Protein Urine Dipstick - Negative Specific [place] Urine Dipstick - <=1.005 Urine Appearance Urine [...] including vitamins, herbs, eye drops, creams, and obfq-xud-cckciip medicines. ? Any problems you or family [...] tells you to take them. ? Taking pdwf-cpj-jiulgww medicines, vitamins, herbs, and supplements. Tests You may have an exam or testing, such as: ? X-rays of the bladder, urethra, or kidneys. ? CT scan of the abdomen or pelvis. ? Urine tests to check for signs of infection. (more content not included)... Normal [facility] Consultation Noteon 03-27-20 Consultation Note [id number]# 1.00TIFF Normal [facility] Formson 03-27-2023 Forms [id number]#1. 00TIFF [facility] Patient Educationon 03-27-20 Patient Education Obstetrics and [...] health care provider. General instructions ? Take pctw-vmv-ejxaaqb and prescription medicines only as told by [...] monitor yo (more content not included)... 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 uSmeet Vásquez DO for urinary retention and hx of kidney stones. Last stone was passed was 2009 she thinks Never seen in our office before. CT AP wo con done 08/24/[address] [facility] AP wo con and KUB done 06/14/21 at [facility]. US pelvis w/ transvaginal done 02/05/23 at [facility]. 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 Sumeet Vásquez for urinary [...] E&M of New Patient Moderate 45-59 Min 11195 2. Feeling of incomplete bladder emptying (R39.14: [...] tid x3days after cysto. Rx sent to [facility]. -Double void maneuvers Ordered: Body Mass Index (BMI) documented 3008F Body Mass Index (BMI) documented 3008F Current tobacco non-user 1036F Current tobacco non-user 1036F Depression Screening Negative 3352F Depression Screening Negative 3352F E&M of New Patient Moderate 45-59 Min 07676 Influenza immunization status assessed 1030F Influenza immunization [...] Ordered: Body (more content not included)... Normal [facility] Comment on above: Result Comment: Elec tronically Signed By: ELPIDIO HENSON PA-C\.br\Date and Time Signed: 03/27/23 11:32 EST\.br\Electronically Co-Signed By: Era Villegas\.br\Date and Time Co-Signed: 03/27/23 11:16 EST PAP ACOG PANEL 2: 30 to 65on 01-29-2022 . . Normal [facility] Comment on above: Result Comment: Perf ormed at: WB Performed By: #### 4 [id number] #### [facility] [address] [place] [address] Dr. Ab Sloan Age Gdln ACOG Testing 30-65 Normal [facility] Comment on above: Performed By: #### 4 [id number] #### [facility] [address] [id number] [address] Ab Sloan DIAGNOSIS: Comment Normal [facility] Comment on above: Result Comment: NEGA TIVE FOR INTRAEPITHELIAL LESION OR MALIGNANCY. SHIFT IN CRISTIN SUGGESTIVE OF BACTERIAL VAGINOSIS. Performed at: WB Performed By: #### 4 [id number] #### [facility] [address] [address] [address] Ab Sloan HPV Aptima Negative Normal Negative [facility] Comment on above: Result Comment: This nucleic acid amplification test detects fourteen high-risk HPV types (16,18,31,33,35,39,45,51,52,56,58,59,66,68) without differentiation. Performed at: =G Performed By: #### 4 [id number] #### [facility] [address] [place] [address] Dr. Ab Sloan Methodology: Comment Normal [facility] Comment on above: Result Comment: This liquid based ThinPrep(R) pap test was screened with the use of an image guided system. Performed at: WB Performed By: #### 4 [id number] #### [facility] [address] [place] [address] Dr. Ab Sloan Note: Comment Normal [facility] Comment on above: Result Comment: The Pap smear is a screening test designed to aid in the detection of premalignant and malignant conditions of the uterine cervix. It is not a diagnostic procedure and should not be used as the sole means of detecting cervical cancer. Both false-positive and false-negative reports do occur. . Performed at: WB Performed By: #### 4 [id number] #### [facility] [address] [place] [address] Dr. Ab Sloan Performed by: Comment Normal [facility] Comment on above: Result Comment: Ashley Rider, Rag Sorter And Cutter (ASCP) Performed at: WB Performed By: #### 4 [id number] #### [facility] [address] [place] [address] Dr. Ab Sloan Specimen adequacy: Comment Normal [facility] Comment on above: Result Comment: Sati sfactory for evaluation. No endocervical component is identified. Performed at: WB Performed By: #### 4 [id number] #### [facility] [address] [place] [address] Dr. Ab Sloan VAGINITIS/VAGINOSIS DNA PROB [place] 01-24-2022 Betsy species Negative Normal Negative [facility] Comment on above: Performed By: #### V AGINT #### [facility] [address] [place] [address] Dr. Ab Sloan Gardnerella vaginalis Positive Abnormal Negative [facility] Comment on above: Performed By: #### V AGINT #### [facility] [address] [place] [address] Dr. Ab Sloan Trichomonas vaginalis Negative Normal Negative [facility] Comment on above: Performed By: #### V AGINT #### [facility] [address] [place] [address] Dr. Ab Sloan PROCALCITONINon 12-04-2021 Procalcitonin <0.02 Normal 0.00-0.08 [facility] Comment on above: Result Comment: . [...] are obtained. Performed By: #### P CTLC ####[facility] [address] [address]Dr. Ab Sloan CBC AUTO DIFFon 11-30-2021 BASO # 0.0 103/ul Normal 0.0-0.1 [facility] Comment on above: Performed By: #### C BC #### [facility] [address] [place] [address] Dr. Ab Sloan Basophils/100 WBC (Bld) 0.5 % Normal 0.2-2.0 [facility] Comment on above: Performed By: #### C BC #### [facility] [address] [place] [address] Dr. Ab Sloan EO # 0.1 103/ul Normal 0.0-0.7 [facility] Comment on above: Performed By: #### C BC #### [facility] [address] [place] [address] Dr. Ab Sloan Eosinophils/100 WBC (Bld) 0.8 % Critically low 0.9-7.0 [facility] Comment on above: Performed By: #### C BC #### [facility] [address] [place] [address] Dr. Ab Sloan Erythrocyte distribution width (RBC) [Ratio] 12.2 % Normal 11.0-15.0 [facility] Comment on above: Performed By: #### C BC #### [facility] [address] [place] [address] Dr. Ab Sloan Hematocrit (Bld) [Volume fraction] 38.2 % Normal 36.0-48.0 [facility] Comment on above: Performed By: #### C BC #### [facility] [address] [place] [address] Dr. Ab Sloan Hemoglobin (Bld) [Mass/Vol] 13.1 g/dL Normal 12.0-16.0 [facility] Comment on above: Performed By: #### C BC #### [facility] [address] [place] [address] Dr. Ab Sloan IG # 0.01 10e3/ul Normal 0.00-0.03 [facility] Comment on above: Performed By: #### C BC #### [facility] [address] [place] [address] Dr. Ab Sloan IG % 0.2 % Normal 0.0-0.5 [facility] Comment on above: Performed By: #### C BC #### [facility] [address] [place] [address] Dr. Ab Sloan LYMPH # 1.9 103/ul Normal 1.2-3.8 [facility] Comment on above: Performed By: #### C BC #### [facility] [address] [place] [address] Dr. Ab Sloan Lymphocytes/100 WBC (Bld) 31.2 % Normal 20.5-60.0 [facility] Comment on above: Performed By: #### C BC #### [facility] [address] [place] [address] Dr. Ab Sloan MANUAL DIFF REQ NO Normal [facility] Comment on above: Performed By: #### C BC #### [facility] [address] [place] [address] Dr. Ab Sloan MCH (RBC) [Entitic mass] 31.0 pg Normal 26.7-34.0 [facility] Comment on above: Performed By: #### C BC #### [facility] [address] [place] [address] Dr. Ab Sloan MCHC (RBC) [Mass/Vol] 34.3 g/dL Normal 29.9-35.2 [facility] Comment on above: Performed By: #### C BC #### [facility] [address] [place] [address] Dr. Ab Sloan MCV (RBC) [Entitic vol] 90.5 fL Normal 81.0-99.0 [facility] Comment on above: Performed By: #### C BC #### [facility] [address] [place] [address] Dr. Ab Sloan MONO # 0.4 103/ul Normal 0.3-0.8 [facility] Comment on above: Performed By: #### C BC #### [facility] [address] [place] [address] Dr. Ab Sloan Monocytes/100 WBC (Bld) 6.2 % Normal 1.7-12.0 [facility] Comment on above: Performed By: #### C BC #### [facility] [address] [place] [address] Dr. Ab Sloan NEUT # 3.7 103/ul Normal 1.4-6.5 [facility] Comment on above: Performed By: #### C BC #### [facility] [address] [place] [address] Dr. Ab Sloan Neutrophils/100 WBC (Bld) 61.1 % Normal 43.0-75.0 [facility] Comment on above: Performed By: #### C BC #### [facility] [address] [address] [address] Ab Sloan Platelet mean volume (Bld) [Entitic vol] 12.0 fL Normal 9.5-13.5 [facility] Comment on above: Performed By: #### C BC #### [facility] [address] [address] [address] Ab Sloan PLT 198 103/ul Normal 150-450 [facility] Comment on above: Performed By: #### C BC #### [facility] [address] [address] [address] Ab Sloan RBC 4.22 106/ul Normal 4.20-5.40 [facility] Comment on above: Performed By: #### C BC #### [facility] [address] [place] [address] Dr. Ab Sloan WBC 6.1 103/ul Normal 4.0-11.0 [facility] Comment on above: Performed By: #### C BC #### [facility] [address] [address] [address] Ab Sloan CRPon 11-30-2021 CRP [Mass/Vol] mg/L Normal <=1.0 [facility] Comment on above: Performed By: #### B MP, CRP #### [facility] [address] [address] [address] Ab Sloan DRUG SCREEN RAPID (URINE)on 11-30-2021 AMP Negative Normal NEGATIVE [facility] Comment on above: Performed By: #### D TULIO ERUR ####[facility] [address] [id number]. Ab Sloan BAR Negative Normal NEGATIVE [facility] Comment on above: Performed By: #### D TULIO ERUR ####[facility] [address] [address]DrJasbir Sloan BUP Negative Normal NEGATIVE [facility] Comment on above: Performed By: #### D TULIO, ERUR ####[facility] [address] [address]DrJasbir Sloan BZO Negative Normal NEGATIVE [facility] Comment on above: Performed By: #### D TULIO, ERUR ####[facility] [address] [place], [place] [address]Dr. Ab Sloan LESTER Negative Normal NEGATIVE [facility] Comment on above: Performed By: #### D TULIO, ERUR ####[facility] [address] [place], [place] [address]Dr. Ab Sloan CUT-OFFS SEE BELOW Normal [facility] Comment on above: Result Comment: AMP (Amphetamine): 500ng/mL, BAR (Barbituates): 200 ng/mL, BZO (Benzodiazepines): 150 ng/mL, BUP (Buprenorphine): 10 ng/mL, LESTER (Cocaine): 150 ng/mL, mAMP (Methamphetamine): 500 ng/mL, MTD (Methadone): 200 ng/mL, OPI (Opiates): 100 ng/mL, OXY (Oxycodone): 100 ng/mL, PCP (Phencyclidine): 25 ng/mL, PPX (Propoxyphene): 300 ng/mL, THC (Cannabinoids): 50 ng/mL, TCA (Trycyclic Antidepressants): 300 ng/mL Performed By: #### Rosi ANTUNEZ, ERUR ####[facility] [address] [place], [place] [address]Dr. Ab Sloan DRUG CUT HEADER DRUG CLASS TEST SYSTEM CUT-OFF CONCENTRATIONS ARE FOLLOWS: Normal [facility] Comment on above: Performed By: #### Rosi ANTUNEZ, ERUR ####[facility] [address] [place], [place] [address]Dr. Ab Sloan mAMP Negative Normal NEGATIVE [facility] Comment on above: Performed By: #### Rosi ANTUNEZ, ERUR ####[facility] [address] [place], [place] [address]Dr. Ab Sloan MTD Negative Normal NEGATIVE [facility] Comment on above: Performed By: #### Rosi ANTUNEZ, ERUR ####[facility] [address] [place], [place] [address]Dr. Ab Sloan OPI Negative Normal NEGATIVE [facility] Comment on above: Performed By: #### D TULIO, ERUR ####[facility] [address] [address]Dr. Yilan Sloan OXY Negative Normal NEGATIVE [facility] Comment on above: Performed By: #### D TULIO, ERUR ####[facility] [address] [address]Dr. Yierin Sloan PCP Negative Normal NEGATIVE [facility] Comment on above: Performed By: #### Rosi ANTUNEZ, ERUR ####[facility] [address] [address]Dr. Yierin Sloan PPX Negative Normal NEGATIVE [facility] Comment on above: Performed By: #### Rosi ANTUNEZ, ERUR ####[facility] [address] [address]Dr. Ab Sloan TCA Negative Normal NEGATIVE [facility] Comment on above: Performed By: #### Rosi ANTUNEZ, ERUR ####[facility] [address] [place], [place] [address]Dr. Yierin Sloan THC Negative Normal NEGATIVE [facility] Comment on above: Performed By: #### Rosi ANTUNEZ, ERUR ####[facility] [address] [place], [place] [address]Dr. Ab Sloan ER URINE PROFILEon 2 Bilirubin Ql (U) Negative Normal NEGATIVE [facility] Comment on above: Performed By: #### Rosi ANTUNEZ, ERUR ####[facility] [facility] [address] [place], [place] [address]Dr. Ab Sloan Clarity (U) CLEAR Normal CLEAR [facility] Comment on above: Performed By: #### Rosi ANTUNEZ, ERUR ####[facility] [address] [address]Dr. Ab Sloan Color (U) LT. YELLOW Normal YELLOW [facility] Comment on above: Performed By: #### D TULIO, ERUR ####[facility] [address] [address]Dr. Ab Sloan ERUAHD A micrscopic examination will be performed if indicated. Normal [facility] Comment on above: Performed By: #### Rosi ANTUNEZ, ERUR ####[facility] [address] [address]Dr. Ab Sloan Glucose Ql (U) Negative Normal NEGATIVE The [facility] Comment on above: Performed By: #### Rosi ANTUNEZ, ERUR ####[facility] [address] [address]Dr. Ab Sloan Hemoglobin Ql (U) Negative Normal NEGATIVE The [facility] Comment on above: Performed By: #### Rosi ANTUNEZ, ERUR ####[facility] [address] [address]Dr. Ab Sloan Ketones Ql (U) Negative Normal NEGATIVE The [facility] Comment on above: Performed By: #### Rosi ANTUNEZ, ERUR ####[facility] [address] [place], [place] [address]Dr. Ab Sloan LEUKOCYTES Negative Normal NEGATIVE [facility] Comment on above: Performed By: #### Rosi ANTUNEZ, ERUR ####[facility] [address] [address]Dr. Ab Sloan Nitrite Ql (U) Negative Normal NEGATIVE The [facility] Comment on above: Performed By: #### Rosi ANTUNEZ, ERUR ####[facility] [address] [place], [place] [address]Dr. Ab Sloan pH (U) 6.0 [pH] Normal 5-9 [facility] Comment on above: Performed By: #### Rosi ANTUNEZ, ERUR ####[facility] [address] [address]Dr. Ab Sloan SPEC GRAVITY 1.020 Normal 1.005-<=1.[address] [facility] Comment on above: Performed By: #### Rosi ANTUNEZ, ERUR ####[facility] [address] [address]Dr. Ab Sloan UA PROTEIN Negative Normal NEGATIVE/ TRACE [facility] Comment on above: Performed By: #### Rosi ANTUNEZ, ERUR ####[facility] [address] [id number] Sloan UR MICRO IND NOT INDICATED Normal [facility] Comment on above: Performed By: #### D TULIO, ERUR ####[facility] [address] [id number] Sloan Urobilinogen Qn (U) 0.2 {Lamonte'U}/dL Normal 0.2 - 1. 0 [facility] Comment on above: Performed By: #### D TULIO, ERUR ####[facility] [address] [id number] Sloan PROF CHEM 8 (BAS METB)on Anion gap [Moles/Vol] 11.6 mmol/L Normal [facility] Comment on above: Performed By: #### B MP, CRP #### [facility] [address] [address] [address] Ab Sloan Calcium [Mass/Vol] 8.8 mg/dL Normal 8.5-10.1 [facility] Comment on above: Performed By: #### B MP, CRP #### [facility] [address] [address] [address] Ab Sloan Chloride [Moles/Vol] 104 mmol/L Normal 98-107 [facility] Comment on above: Performed By: #### B MP, CRP #### [facility] [address] [address] [address] Ab Sloan CO2 [Moles/Vol] 26.9 mmol/L Normal 21.0-32.0 The [facility] Comment on above: Performed By: #### B MP, CRP #### [facility] [address] [address] [address] Ab Sloan Creatinine [Mass/Vol] 0.91 mg/dL Normal 0.55-1.02 [facility] Comment on above: Performed By: #### B MP, CRP #### [facility] [address] [address] [address] Ab Sloan EGFR-AF JAPANESE >60 Normal >=60 [facility] Comment on above: Performed By: #### B MP, CRP #### [facility] [address] [address] [address] Ab Sloan EGFR-NON AF JAPANESE >60 Normal >=60 [facility] Comment on above: Performed By: #### B MP, CRP #### [facility] [address] [address] [address] Ab Sloan Glucose [Mass/Vol] 105 mg/dL Normal 74-106 [facility] Comment on above: Performed By: #### B MP, CRP #### [facility] [address] [address] [address] Ab Sloan Potassium [Moles/Vol] 3.5 mmol/L Normal 3.5-5.1 [facility] Comment on above: Performed By: #### B MP, CRP #### [facility] [address] [place] [address] Dr. Ab Sloan Sodium [Moles/Vol] 139 mmol/L Normal 136-145 [facility] Comment on above: Performed By: #### B MP, CRP #### [facility] [address] [place] [address] Dr. Ab Sloan Urea nitrogen [Mass/Vol] 14.0 mg/dL Normal 7.0-18.0 [facility] Comment on above: Performed By: #### B MP, CRP #### [facility] [address] [place] [address] Dr. Ab Sloan Urea nitrogen/Creatinine [Mass ratio] 15.4 mg/mg Normal [facility] Comment on above: Performed By: #### B MP, CRP #### [facility] [address] [place] [address] Dr. Ab Sloan CBC AUTO DIFFon 06-14-2021 BASO # 0.0 103/ul Normal 0.0-0.1 [facility] Comment on above: Performed By: #### C BC #### [facility] [address] [place] [address] Dr. Ab Sloan Basophils/100 WBC (Bld) 0.6 % Normal 0.2-2.0 [facility] Comment on above: Performed By: #### C BC #### [facility] [address] [place] [address] Dr. Ab Sloan EO # 0.2 103/ul Normal 0.0-0.7 [facility] Comment on above: Performed By: #### C BC #### [facility] [address] [place] [address] Dr. Ab Sloan Eosinophils/100 WBC (Bld) 3.1 % Normal 0.9-7.0 [facility] Comment on above: Performed By: #### C BC #### [facility] [address] [place] [address] Dr. Ab Sloan Erythrocyte distribution width (RBC) [Ratio] 12.7 % Normal 11.0-15.0 [facility] Comment on above: Performed By: #### C BC #### [facility] [address] [place] [address] Dr. Ab Sloan Hematocrit (Bld) [Volume fraction] 36.9 % Normal 36.0-48.0 [facility] Comment on above: Performed By: #### C BC #### [facility] [address] [place] [address] Dr. Ab Sloan Hemoglobin (Bld) [Mass/Vol] 12.1 g/dL Normal 12.0-16.0 [facility] Comment on above: Performed By: #### C BC #### [facility] [address] [place] [address] Dr. Ab Sloan IG # 0.01 10e3/ul Normal 0.00-0.03 [facility] Comment on above: Performed By: #### C BC #### [facility] [address] [place] [address] Dr. Ab Sloan IG % 0.2 % Normal 0.0-0.5 [facility] Comment on above: Performed By: #### C BC #### [facility] [address] [place] [address] Dr. Ab Sloan LYMPH # 2.1 103/ul Normal 1.2-3.8 [facility] Comment on above: Performed By: #### C BC #### [facility] [address] [place] [address] Dr. Ab Sloan Lymphocytes/100 WBC (Bld) 40.2 % Normal 20.5-60.0 [facility] Comment on above: Performed By: #### C BC #### [facility] [address] [place] [address] Dr. Ab Sloan MANUAL DIFF REQ NO Normal [facility] Comment on above: Performed By: #### C BC #### [facility] [address] [place] [address] Dr. Ab Sloan MCH (RBC) [Entitic mass] 30.0 pg Normal 26.7-34.0 [facility] Comment on above: Performed By: #### C BC #### [facility] [address] [place] [address] Dr. Ab Sloan MCHC (RBC) [Mass/Vol] 32.8 g/dL Normal 29.9-35.2 [facility] Comment on above: Performed By: #### C BC #### [facility] [address] [place] [address] Dr. Ab Sloan MCV (RBC) [Entitic vol] 91.6 fL Normal 81.0-99.0 [facility] Comment on above: Performed By: #### C BC #### [facility] [address] [place] [address] Dr. Ab Sloan MONO # 0.4 103/ul Normal 0.3-0.8 [facility] Comment on above: Performed By: #### C BC #### [facility] [address] [place] [address] Dr. bA Sloan Monocytes/100 WBC (Bld) 7.5 % Normal 1.7-12.0 [facility] Comment on above: Performed By: #### C BC #### [facility] [address] [place] [address] Dr. Ab Sloan NEUT # 2.5 103/ul Normal 1.4-6.5 [facility] Comment on above: Performed By: #### C BC #### [facility] [address] [address] [address] Ab Sloan Neutrophils/100 WBC (Bld) 48.4 % Normal 43.0-75.0 [facility] Comment on above: Performed By: #### C BC #### [facility] [address] [address] [address] Ab Sloan Platelet mean volume (Bld) [Entitic vol] 11.1 fL Normal 9.5-13.5 [facility] Comment on above: Performed By: #### C BC #### [facility] [address] [address] [address] Ab Sloan PLT 186 103/ul Normal 150-450 [facility] Comment on above: Performed By: #### C BC #### [facility] [address] [place] [address] Dr. Ab Sloan RBC 4.03 106/ul Critically low 4.20-5.40 [facility] Comment on above: Performed By: #### C BC #### [facility] [address] [address] [address] Ab Sloan WBC 5.2 103/ul Normal 4.0-11.0 [facility] Comment on above: Performed By: #### C BC #### [facility] [address] [place] [address] ABD/PELVIS WO CONon [...] TIBURCIO OROZCO Date: 2021-06-14 10:26 Normal [facility] ER URINE PROFILEon 2 Bilirubin Ql (U) Negative Normal NEGATIVE The [facility] Comment on above: Performed By: #### E RUR #### [facility] [address] [place] [address] Dr. Ab Sloan Clarity (U) CLEAR Normal CLEAR [facility] Comment on above: Performed By: #### E RUR #### [facility] [address] [place] [address] Dr. Ab Sloan Color (U) YELLOW Normal YELLOW [facility] Comment on above: Performed By: #### E RUR #### [facility] [address] [place] [address] Dr. Ab MARCUM A micrscopic examination will be performed if indicated. Normal [facility] Comment on above: Performed By: #### E RUR #### [facility] [address] [place] [address] Dr. Ab Sloan Glucose Ql (U) Negative Normal NEGATIVE The [facility] Comment on above: Performed By: #### E RUR #### [facility] [address] [place] [address] Dr. Ab Sloan Hemoglobin Ql (U) Negative Normal NEGATIVE The [facility] Comment on above: Performed By: #### E RUR #### [facility] [address] [place] [address] Dr. Ab Sloan Ketones Ql (U) Negative Normal NEGATIVE The [facility] Comment on above: Performed By: #### E RUR #### [facility] [address] [place] [address] Dr. Ab Sloan LEUKOCYTES Negative Normal NEGATIVE [facility] Comment on above: Performed By: #### E RUR #### [facility] [address] [place] [address] Dr. Ab Sloan Nitrite Ql (U) Negative Normal NEGATIVE [facility] Comment on above: Performed By: #### E RUR #### [facility] [address] [place] [address] Dr. bA Sloan pH (U) 6.0 [pH] Normal 5-9 [facility] Comment on above: Performed By: #### E RUR #### [facility] [address] [place] [address] Dr. Ab Sloan SPEC GRAVITY >=1.030 Abnormal 1.005-<=1.025 [facility] Comment on above: Performed By: #### E RUR #### [facility] [address] [place] [address] Dr. Ab Sloan UA PROTEIN Negative Normal NEGATIVE/ TRACE [facility] Comment on above: Performed By: #### E RUR #### [facility] [address] [place] [address] Dr. Ab Sloan UR MICRO IND NOT INDICATED Normal [facility] Comment on above: Performed By: #### E RUR #### [facility] [address] [place] [address] Dr. Ab Sloan Urobilinogen Qn (U) 0.2 {Lamonte'U}/dL Normal 0.2 - 1. 0 [facility] Comment on above: Performed By: #### E RUR #### [facility] [address] [place] [address] Dr. Ab Sloan PROF CHEM 8 (BAS METB)on Anion gap [Moles/Vol] 10.3 mmol/L Normal [facility] Comment on above: Performed By: #### B MP #### [facility] [address] [place] [address] Dr. Ab Sloan Calcium [Mass/Vol] 8.8 mg/dL Normal 8.4-10.2 [facility] Comment on above: Performed By: #### B MP #### [facility] [address] [address] [address] Ab Sloan Chloride [Moles/Vol] 104 mmol/L Normal 98-107 [facility] Comment on above: Performed By: #### B MP #### [facility] [address] [place] [address] Dr. Ab Sloan CO2 [Moles/Vol] 28.8 mmol/L Normal 22.0-30.0 [facility] Comment on above: Performed By: #### B MP #### [facility] [address] [place] [address] Dr. Ab Sloan Creatinine [Mass/Vol] 0.79 mg/dL Normal 0.52-1.04 [facility] Comment on above: Performed By: #### B MP #### [facility] [address] [place] [address] Dr. Ab Sloan EGFR-AF JAPANESE >60 Normal >=60 [facility] Comment on above: Performed By: #### B MP #### [facility] [address] [place] [address] Dr. Ab Sloan EGFR-NON AF JAPANESE >60 Normal >=60 [facility] Comment on above: Performed By: #### B MP #### [facility] [address] [place] [address] Dr. Ab Sloan Glucose [Mass/Vol] 93 mg/dL Normal 74-106 [facility] Comment on above: Performed By: #### B MP #### [facility] [address] [place] [address] Dr. Ab Sloan Potassium [Moles/Vol] 4.1 mmol/L Normal 3.4-5.0 [facility] Comment on above: Performed By: #### B MP #### [facility] [address] [place] [address] Dr. Ab Sloan Sodium [Moles/Vol] 139 mmol/L Normal 137-145 [facility] Comment on above: Performed By: #### B MP #### [facility] [address] [address] [address] Ab Sloan Urea nitrogen [Mass/Vol] 13.0 mg/dL Normal 7.0-17.0 [facility] Comment on above: Performed By: #### B MP #### [facility] [address] [address] [address] Ab Sloan Urea nitrogen/Creatinine [Mass ratio] 16.5 mg/mg Normal [facility] Comment on above: Performed By: #### B MP #### [facility] [address] [address] [address] Ab Sloan XR KUB 1 VIEWon [...] by: REAL RIDER Date: 2021-06-14 09:08 Normal [facility] Coding Queryon 02-25-2021 SARS-CoV-2 (COVID-19) RNA TERESE+probe Ql (Unsp spec) Can you please review the patient's COVID results and revise the diagnosis if you feel appropriate? Thanks. [Electronically Signed on: 02/27/2021 18:06 EDT] SHOLA HONG [Verified on: 02/27/2021 18:06 EDT] SHOLA HONG [Transcribed on: 02/25/2021 13:31 EDT] [facility] Coding Summaryon 02-25-2021 Coding Summary HTMLBase 64 VmquivdtZDy2zVf+PGhlY WQ+BX9CPZIdK53wbNFiuH 2YE0qXEB5OCEMPLQZKPT3 ZLB2ujSH2EFzpI1ArkrHn DkazjPUjNF11PCz6YWH7y CvwAIngqL8esWJiB1n5Xr YkVF00aY07TSclWCKdZvX 3LjZpbjsgbWFy K3quKjOosAEeAif+PHRhY mxlIHdpZHRoPScxMDAlJy OnyUlaSV1nRe6dCWBwIJK vbGxhcHNlOiBj l9ipFYAmRRapOO4ywOsjW 0WkfKZ0EPAau4i8Ju34kO I+IPReIWJ6cOmlNZxwj05 3MqYyb2ywANR8 dQKsVVbxHSX2N04yn2C4D WEvKDPqPER4oJV4sI9heO fjfpbdK5QksSEqBoR6YEM 3pVUibU3abBfr uqjhdL7gItc+P59WQB3EX FDHYX0KFnt5C6JxBzyhqO I+MF34RIYfDU44oWYkbDU iq1bilDm3JzId TLYcTNU3dUphEWujp6RiN FAlR34nfJFgt3O4NCNloN mufFDvXnAfrBL7iD2cDPp uusocd6edlwin Kresu0gmft29tL12H43gM PdlVXAgCZR8YAOcLGSkrS npxm0giF6pZh7+PYnop2b zz9zwzPy7QuEz UNSravPtuYzpFWF4l7QuL c27X7SwjCpdz4CdIcm9ma 09iKAdv6A1pPH8JFocOOK gsY3uKDraVzW3 NMVbGyQcuI29eBRbMDnqO q5xvRdesZovJF4tGNIrit wbCQSgsI6oYWQogXOpxMp rRS3yVUJipdcs z817HpVpPVQ1POMvpFUkZ 0HgbU6bLiReWBLqFUKpG7 WuiBPwJZzfU069LMrpHcU 3QPEpamNxR3Wl BDUynKqoJuA9q1O4Vh4Nf 5CixauvCDV6DShzGEBoHt TbZkWnKdR6D1AcTqp1GFA xqCnfPT7vD0Iy NUKshpunekjkcEH8AYJcE DAetX45fRJuFPmnWe0dn7 A4u429WWUbDWWvnY54Rz7 udDogMTBwdCBU gH6vxisqw7heawlnHeFlZ NEnCRg2HMt3REIhfWghXv UbRIU3QfG7EDR1aWKzvR8 tpHznianntJ4x Oyc+X12njY5kNQQ3JVL6c clkFVZlzjHjQW31ZN13H8 RyPjwvdGFibGU+PGRpdiB rlCvoLM3cFrNp q9pfd9DzWVuaX9JoHKRiX QevUee1RVRsNIS4rWW6oU 9vCBCeQLueq4E4gIX5P8O ozqJnbf9sz7ua OAUwMJxfP75urDSyz9R1Y FPhwXN6HZDtoZbbLqDdnL 93Oyc+LWYlhUlbe1SvTfy bl9mtl3ytkUn7 HcYtGPBxxiFchMuzPNZ4x 7BvCf10X34wQLfbCRShHS UaLGTwPAVkgMclyq7beJ2 wIi8+PGNvbCB3 yBZ7oZ0eMSWrXhW8XNnoP 594WwPzyWLgEbamp3vud8 fkiIr3PlDmCNCeghJabWa oDSP1q5WlUq26 R69uDFahMHNrOFYlOHPuO SQdbKkqwd0prJ6wAz5+PC 0ju3koam79kQ06xUD+PHR wFLL6wDiqUQrl DJNodX4uUVfcTzI6HLMaS eGprQ74wBFvGNlpRy8gpU lkuVnsAE5nQUZufsajp56 0UkZro2odBGLs eHVvTVkbMGS1S89fi2Z4K UCvIHQpBMS1hOO8iV5ccU lnbjogbGVmdDsgdmVydGl hCOzeVAaxP034 IHRvcDsnPlBhdGllbnQgT fWjLLq9F9McMko9TMSqsP nfXY4vkRXuUXhjHd7zgSu kbGwbCC8kPXWo hxfle781FzOlf4fnDHZmi LOiFQovWKQ1C46uz5R8ZL OcEWNqPUJ7pUA6xL7joCa nbjogbGVmdDsg kiZndTwtNNxzLOtmN467B HRvcDsnPkJpcnRoIERhdG B6JK38JW10eHTss6N8lNH 1I5RcDIKexyhd yscksNF8BZLeHPKqxC91D p2kbTneOf2oYNNeSYY3DN YxpAAbQ4LbaU9eNrXiMFS aSLDlX6SipFLc LBjbB463JGjiOoS8POOcx yMhW5IoMWOptGhhEbU9g4 X6Sp7IH2E0OL71EQ67oTW sg3H8vWM0V3Xe BJLxuguxtzuwhNC6UWHyQ BEmzF08Fa2uxSodTy6tEG SsYSP0UJTsuUVuS1DnxW2 yOiAjMDAwMDAw G7CglONdWNwrA148ZOqfV pI8VIYchiWkA3IyTIQlgD dtPqO3d5K8Kc0YJKv5UQ7 4SN95fHEam7S1 lRG6I4RwWJRtaeqlkswfz WM8ITNzREOfuE41Ev2mmJ ptMy8nVTEqBGI3QIVfpPL gT5IluS9iVfOi MIUjQUMgQ7MeeCLyOQhmM 249BZrlFcP3ICXshgQfF7 EjIRKyiSjqVeL9t0Q1Tb5 TOHGvRT69DJS3 dCI6VT16DF30H7QxGdfxb GFibGU+PHRhYmxlIHdpZH RoPScxMDAlJyBzdHlsZT0 qXs1qNBNsMBAv wHbvpNCqYcDbf6pjUIRdH QfuGX3waWkzU3UuwRB6EA Klr6t3Di16O66pA7FuqNN +PVGjpPE4sEZ0 nS7oOpSvByW9UTwdP827H tVfpDVmHytxe4mdx9kvuK s4CpP2QKOeviMadWebGGK 4p5ViKg26I16y IHdpZHRoPSIxNSUiIHZhb Eneku5wfB9pYg6+PGNvbC W4zNN2yF0oEeEkAqL8GYa nR617ImCqdPYd Shwpx0lgl2dbzCf4FlSfK XKpnaJajGzkBAR4p7CmUn 53C8VkjGdem9RmNcu7wc4 6dGUtw9C7jRW2 L0IeKHFfxjsyrHMlzMbuO K2pIPYvtieuQXEagU4qFQ TsW7j9HdDsXsL7EYgoZ2H ztnV0RHXovEUk CBgpMWT4J68sc7F0WIBcH AGdFRS1iOQ1wJ0ugVjcjr ogbGVmdDsgdmVydGljYWw zUVxnI763GWFg sGcsNPMsaB8nILMxsWKqw OuaLP9rVXHirlihMktKJF wsIFNIQVdOVEUgTUFSSUU 4K3KaBgt5JQWq fLtdLB8hbEFiWZxiJs4yz JiltJvtHU2jJWSzndayLC CnrG1jQSWfzKGgyKmwWO5 aWBTaiavqr140 PeQcCHZ9QOMfhIIqS5Rbs I6vFyIzDXGwIFFzW5FltZ EjHNnbH241RXbrNpT0QZJ imzAzX9XaKTHb yYyrJqR7o9I9Bs0cWQ3kI w2hBYt9LX39PY38bTLja6 H0pZP5Q0OgMKEovmseavm qaAH6YYMrIAEx kJ83vJMqSDhdYo6zj1P3q 328MKFcHCOnpN76Ee2wnR suIIHevKQYjY5btwqit6s vcjogIzAwMDAw KHo9KPy6NVOigPweRhVvA AM4EtU5POA9kQFyhI0lbK zknmpjeN9gFxd+MzYgWWV vafQ7O2WsVgh2 LKCbuMupTI5hqVNrKVgrX v0taRapoLzgCY5mJYNarl eySEKamT8dWAHbnJKzgHh rIG4iWRLtcfol c072JyRlXJD6MNElhQNbX 2YccG0uUgKdSFQmTEDaU9 UlbPHtDHrwK452MVbtNeA 4OMFdpvSeJ0Em CEPfwHpeSeK8b5F2Pi2GL S2BBIN3M4EeUpc0GDAarA mjBN6jrMKiTSyjAy4ilKd nlPtqIM4uLTNg rhubWPAlpH7iUSLzzPEbf NzrQI1gFLSqxemya438Yt QbNFF8MMUwlAGuD8GwwB9 yOiAjMDAwMDAw D6GcmBDtGBwbP588FMqjQ nD9AAAoimVmR2SnDRTprH lvOzY4j2Y8So4PVOmsvNR +QM99dz62C2Zg JbgeSey1CYMuIIC8aEQ7b L9aATPoAHgza1Y9uEO9G4 WgguQjwg5wt5cmMDGzANy eI66xjWAwm6P0 EWDybXE3XMNqdFmcYfHga G93Oyc+OUMivQidi3VqKr evx7yfi4prnFa7YlHwORJ gdmFsaWduPSJ0 x4PgSs82U05hGTqqUHDsN AXjDULgLPOlgSctro1qmG 9wIi8+MXDemUZ2xYC5iG2 mGuMwCfZ5GDhk B179GiOjmHDhAynfa5esl 3ayhMm2VmRrOQTvrfXzmM whHLK1k0CnSv93X5CosAk fs1CeMwi9wn58 uQPac6Q9uST6E6GbADBie pvqhZHavDknTA6fINSpoe auIVLnnD6oICOaP4c8MiH kHxS7IDdnJ6Ju qaT1EPCiaXImEDGriRYRg I6qfgqkn0tuczbbAlYzBS RmXWr7NDn1PDTmbPwdFyK eQZE0KqL3XOA7 gNNvqD6pbSycvptwsK1cV yc+YTk3m5zubRQxQX6jnU M3AD68FH62zZSuj3H2aFN 9H6GgCKKzcghq zbjouLP9BCLjTOCuaI12I g9bkTikBc6nMDEyZZV8NQ DyfJCnK9AdnF6xVnJpKRY wVAHkS1RwbWKt MHbxG340IRvuYhY7KVKbc bTeM3AhMFNysBunImY7l8 I8Sg6XCE25MS03ZJ72cZX wc9E0tIH8A5Sc ZJMlcqzkiksfnJK2BSEfS PXlyF63Wi3hlDroPm8hBV GmHLG3YKWnbWIgU7LwqG1 yOiAjMDAwMDAw H8EkjQKfGNlnV013TEemD bS1BWLwdxQsM8JlMSOemL kvTiS2k8Q1Zu8OQy62NJ2 0II85vQAbs1K0 vZK4L3MgPDSwolvqomqid RK6MVFcWZSqnX42Kx0coD okEp3nMQEuMTI7SJDhtWX fA5TkzM3tToWc OTZfEMLvL9ShnZPdLHhbP 812ZOhxDyF8TQEotuEoE1 UyNTJhiRlzRkY5u0X1Ez7 XZTfbjzu8O7Mb PjwvdHI+MY88JSWdEO85d LFcuLExy8knwRj0RmWkJJ QjYJG3eVwjUUpaw6RkTRX nJ11bsKIji6S1 IGN (more content not included)... [facility] Coding Summary HTMLBase 64 XqtjdlhkFKj7nQo+PGhlY WQ+TV0UFLLaO61hyOTgjA 0XP4gITY4XMHUYNEOJGS9 ZAA6mdZH1OTpcQ7VxxgBw IqvcbLLtCH45UPc0GHQ1r AlhSUmkaC7waMTdM7h4Ok DpSN88oM06MQloYVVmOzR 3LjZpbjsgbWFy W8ioUbTkvVOiWyn+PHRhY mxlIHdpZHRoPScxMDAlJy IwpQwgSI0zDh1rAMGpQFG vbGxhcHNlOiBj e5krQMRaZDnkKT0hcJntF 3XmeEN0UYTji8c0Fa38jT I+KVJaYVU7tRnbACbqv01 4LkNwd7wcSNL1 aWKbTYjsUWC8I93bl2W0D YJkFANmUZJ0sGO3jW2diZ pdgwoiZ2YweHQaItE1UNM 8oPWmnU6iqTjb tweibV9cHrd+G97XKH8KZ FULML1CHli3D4JjNbgnpA I+DU61DNVgZA38yKEirVY mo0nqkKa9LxJa HFIgSLD9aQhcGMlkw0LbZ VVxE90jbWOgf4C0UVKvjW yreTDiNgRheGW6lN3fKSf roatew3tyrayc Xrpuu7vpxp23fZ36Q35uK PfdLQMbYTW2ORRbMBWpwZ nzkt4agW5qJu9+RGshw0e gv9ecwKs5PgSi XUJtmiQueGdaGIS2h5AiQ t43X1EkhYyno2RtUub9uf 13cGCmf9C6sEC3CBndYTN jqG3lVNgyArT7 HDZyWzMwqR29dOCaWKypB j5ygMcrdXcvEQ4yGMVrnj syZPNybE2kVLBmbMQceFx vEA7wQCSzeqbk z323YeHqEGI7APZguQPgE 4RwpA7gDlOsEDTxGRIgP4 EcfUNfANpuT331QJkwBrX 8LWAloyMaI6Zo JYEsbBrjXgU0h4U3Af1Je 2ZobsovELI9DYpaMCHiKr IeLnGwBjY2I2TkSqw0MVE zkSiqFQ3wJ2Uh KFQftezanfsubLW0WNKpB SSegR44dEStBRjzVy2da1 A6h849ELZpOBFmiZ88Yt6 udDogMTBwdCBU qU5ybwsrl9ikxfrcJoNdZ MAdWXl3EFf2RAXujVwbIq ShELM3WkB5BOS7oGLybE1 ptOtratvlfS3a Oyc+S74oxJ5aZGG3BEM7k lrbGWNhpvHtSI82VH70C5 RyPjwvdGFibGU+PGRpdiB hjPunBC6eNwCs q7ktr6VeFBjnW2TlRTRcA UhhKte2NVBvXDC8xYS0aL 1eDOQeWHppd3N9tQX1K8O hiuZjqe7qr8lx QKGaMTwnZ21gkOFdx9F1S FEuqVY8GHDgpMtbDcGtgT 93Oyc+GQGooOcuw8IqKsd ri1qaa4lgtGg5 FdWdTRDqpaPasJnlQLJ7v 9TrYn16D35uVZoeYRJcNI KlZLUjNYQwlGgqay4adS7 wIi8+PGNvbCB3 pVB3rC5sFXVmGiX4DIhzW 827NsSbjKTuVqjdw7vhq7 jiiAq4ZvVgAHCfbrKsxWe lSLN3m0QiDk85 N90iZOucZLTiNHTvWEFdF TQikYibln6jmQ8gGj4+PC 4tz7peir89cF73pDO+PHR pOFM9yZjrAUlq UPBuxF0jOAmhOpR2FIGzJ zCibT40pHRxOTjnYa3ipD wmfFswVK0pBAPpejiax12 0OtFmq0sxMSRp aIVbQVyuVOC3M60sj8A2J VXkCWPyDIY5xED8oB7niX lnbjogbGVmdDsgdmVydGl cMDexJCzbH615 IHRvcDsnPlBhdGllbnQgT pArJUr0A5MaEzm8WOOerW mcSQ0onXIxJYhqCw9gaKm joOfcKF8qWURa drjdy191GfAfq6ftYKTrb VEyOEmtOFO3P38uy3C8SX GgDORhETB8xFK1jK4pnQg nbjogbGVmdDsg muYjrCwqBOupBCksW154B HRvcDsnPkJpcnRoIERhdG L7QG23XL94bHSho4J7oNY 7O4FaDSZkxnqa izhfqWE9MQOsBSBdkJ17R v5xvMazRq4gSGGhHIH5XI UcyHKgD0YukQ7zKsKqNFM rXDGbD0BlyNEx TBdfF369ZHmzBkX5XCFrj lCwR0ChRBQemZzeImR3m3 V3Ta5MY9F8NS67AF11lAD wx9T5uQJ7Q4Ra HGBumswpybeneBX8NGWtM LOjbZ01Pi9ucMkjCw6fZW PySTK1SXXhvWCnR4RzeT9 yOiAjMDAwMDAw N2NncFQyBPkpT663RVlxB fS1JAGypiVoQ8BeAFItzG haQsG2c8U0Vv0DGKz0SJ8 1XO39tBSbs4B7 tHG0H1XwXGRpgybswukht YC0MZThMLSfeN86Fl8jaN viVs1bRAFdTJJ6LLGknNX mN4GrhL7iMhNl ZMXtHTMgL6IgbWErBJdaQ 475QPtrXyB1WIBflhAcS5 QxXTGlpXrdGyB8q9X9Eu8 YIKTpBC23BWJ4 mVG3DZ86FY73T9RaVmnsf GFibGU+PHRhYmxlIHdpZH RoPScxMDAlJyBzdHlsZT0 oAj5tMXOvBBOy hCvsfIOrZnZri3grCQAhP GixSR4lqWynS5LtqAE3JD Xkx4w2Pd05J18aZ5ImsTN +KKLfeVM0cWQ2 wN5yEbTnJdB9UTvnG836B sHngXJyForqe7zin3vmqR j7EeI3WJIfqkCsxQtnCRS 4a4RtOz02I95c IHdpZHRoPSIxNSUiIHZhb Mhbmd3icX6tPk5+PGNvbC K0bZS2jR6aPlQgTwJ9SLh wS592SwJxtQJe Mkxxi6lld9rgzXi6MsZsV YDozmQkjZwqNOP0d1IhQk 53G6VvmVexm4YgHin2qo8 2vKBxx9I7fCB9 V7ZmDSNadnqoaLTbqVdqD W8iAZZyvucuNFYjfM1mEG RgT6l5ZoGiCdB8HZqvT5C srpT0HMCbaORp APkjKOX3U54jb9D0VGGtR XCwQHP4vLF1kH3vbAofek ogbGVmdDsgdmVydGljYWw gUGiiD470GWCv vJzhMMXqaW1vURVjhDDgw NyeMR1oLHVzewwaXxwOEO wsIFNIQVdOVEUgTUFSSUU 3C0CsEqc7DDZm lOcqWS5unWXwIMnrCz0dl SnddXqkUG7bEVBxtfeuDF GgxN8lZUMshKYjlGtxJQ8 cCISuxujbs330 ZoYnHAT6BIFaeVEqS9Tru R1nSmOfQAHmKWFlO5PnzF DpBDwxM886HUlfNhI6LTL cjjBdP4KtUALr iLfrGbP0z5T6Tj2pRT2eT r4nFXz6BJ54RB01sIMsd6 Y6dRB6L7KgEOFbkpfigfm oaDE0RTPgZISw sF05qJTrZOmnMr4uf2V8c 302TFYhJVWxiT79Ve2wdQ rlIIIuiYIReI1danscl1n vcjogIzAwMDAw ZRd1XGc1EKMkuCzaCmHtX AE3VmB9AUH0jCQhdJ8sbP bflglhaD4eHhz+MzYgWWV qxnF5U7HiXnu9 IDRrmExuMI5wyMLxKBobN n4scOjbcMifSW5iPMUldw ygOKPylI7fUYPufEHowOw yBM9fHDQdssds m814UyIkWCB8KEGptLSkR 1FvzR3iFbLoLZWoZMSoB5 VqkEWkEBdvG566KEmeFvO 1BLAvgwRjU3Qa LIFsnQmcEkZ8n2B2Cv5OF Z9FURW1K0SwWel9OFOkdU ntDZ7rbFMwDVqlUn8lwTe hhBqtQS1nJEJi sncqAGYooZ4wHRDjlIGbi SpyVI7pSNNbuzjlw746Mx WgSLV3VTMqwVFpC5VllJ0 yOiAjMDAwMDAw E4KkkUJuKGycV132EAidH qZ1SBLifsOfX4ZsBPMjaN ftMaR9d0B7Fo3VgLDcJ3O pP1q1W5FcFxbh dHI+SI69BPOyFP24qZGbp HUzn1fewLc7AuGdIXIaQF G4lTafUAeel7BqXASaH50 ljDVte6A2OREb mPtmxVCeQkLziBE8cB2dR Pcnaydxl9cxdpepBdhvd9 bddn83iS47M93sQNpxLMO oPSIzMCUiIHZh oDdocc9puT0eSy2+PGNvb XD4kIF1fK9qMuBbRmW1RQ nmL607GwFvnTCzRskpw5y xc9sycVp0HuSq ZHIbhmXrxRqiDHG9d6YcQ q89D56cSAfkUXDvWXWcSQ ZqQIWhsXejvt3vyK4aJt0 +FH5rq2beeh83 iN83mOD+PGDaOUS1xUwdY MjcMFNumC3uMGowMeZ6OZ BrPqDdfR05wULsHTuiJh0 xjHqtnYqtPR9q KGJvnezex621DiRbu1bvC YQfqATdLZyiIUN9C63wy0 S1AIZxLKMiLSC8tVP6hF6 hbGlnbjogbGVm dDsgdmVydGljYWwtYWxpZ 499BGImzUvcAbMhySEuI5 lcokNVFH6bWwyneOM+PHR gKPS3bAlgMTwc UOMzjN3aRUHxR2c7BkQuM oB8OVmyK9TfxbJ2GRTgwZ IzJCNwwLVZlJ2bwfoaw3c vcjogIzAwMDAw TFf6TOb5FFOlcArwUfGyP VA2SyZ2ZXO1uSGloU7llH yrsbzrvF3zMmg+RklOOjw vdGQ+PHRkIHN0 eCvySPgtYTJxzU6eHMTtR 4x7IrOzYyS6TVpaJ3Htro P0AJKrdCLiRYSfqVDJaH7 vicflt1ekoehd LzSzRRXmPAu7AIp0YATbe MleYtCvNBA1ZkP1FTH0cG RnkW1ruWclwbmorU8zHmx +TVJOOjwvdGQ+ AFWfAQK4yLppZCgfMMGhg F7pQMFfS4j9HfNkPmH0NT sdB5FpcwR4CYXnpSMqQWW idTZOgP7ergju w3autswrBmSzGWVnUHg0V Js5GMQuwCpwSjEdAWW7Jf C2OYZ8lTIbzT8rfNgvbns kcO5bUjt+UGF5 WBQ5LL62GX41S9ZoRkotg GFibGU+PHRhYmxlIHdpZH RoPScxMDAlJyBzdHlsZT0 tNx9eXEZjIDYg bGx (more content not included)... [facility] Coding Summary HTMLBase 64 ZzramjpaQXn5mIo+PGhlY WQ+YW8WHYXfB41dzORbwR 2GX8bWVK8IDHUJJSJMZH9 HZE3rxUE0HJqgX4DybiUz MdgveEBvJM30WZn8FMN8n TjtVWsabK5aeILgU5n2Qz LiGG99cY02RIiaMMHjLlH 3LjZpbjsgbWFy F2gaRoDmsOPnDkd+PHRhY mxlIHdpZHRoPScxMDAlJy RmkBjbKU9pPa9cECDjERR vbGxhcHNlOiBj i4ojMVDuWBgeWE8zrSldP 4UlpSD2HDBpw8m2Yo22wW I+HPZjARB8mRsdOUnzt07 4CxNsl2skLGE8 uOInMZtwMMY8E55ul1Y7V MMqICHzAZF6uEP7tW4mvD nefygkA2QokWDgXaV6ASA 6zRQzzW0isDhw hekbfB2tUkp+V36LRL3PQ ZABBV5IChz6H0EaLuhonS I+OP61RGOcMI09nOJvtCC dy9qsxNa1SdPt URLyFVE1tSgnVThmr1HrH WKcG99gvTCfr8X7DYEskT vfwZLpRfCfnIB8gF5pBLl houvqo0dgolmz Rkdgn0bnvw23oV43X21zO VnzYUZmPCJ1NYFqFFUukR vunl8mlI2kKt1+YMqlt4b zp7rwrDb0EpEb ZVLxjfOhoEuiOKK7d2LbA w59O0AwoRaps7YnZsu5fs 14oOSup8U2fAM7BCgdUGD gcI9oZVqfZoR1 QTSuDbTuvB88fOVvKOyrO x2yxRtkdFpwKV9nHOGzsa pnWGBfoO2wSMWirYKhrHh vPY5zSJHunusa o976CkBgGZF9DXThnTPiM 7KecB9kAyFgFSHqRYIuJ9 MllQZdMIjcC672MRyeRjF 8VRMnzrKtV2Te NPHrgDszWpD5h9Y2Mq9Br 4RlrtajGPY2HXurAOSrFc GvIvIoMnJ5Y7AbUle2SWU ojZwtBP5iV6Qu APWczqpjyagosJX5ECXaK XOzhG87yTPcAMmdAh7ge9 M5q731XYZdFTQreG01Kh1 udDogMTBwdCBU yK5ajpyez2dupwedNnUgA UHvMBd9UXe7IZXrdOnfGs YdSME1XyJ6MUS0dAXetI1 wmZweijlpsR9t Oyc+E08uoY0uKLJ6KKX6f dzeQYHwmtEcCG95CW57M0 RyPjwvdGFibGU+PGRpdiB rgFhtVI8cMqFh a6unb5RvOKfsP5DmJCWpN ZffWlr5ZZDnUUQ0cOY5yL 5pFGGjLUakw1B6tZO9R2L tghJmey1fg5fh LPHtLKgmO95xoSSse0B2R WDtzZE1SFYeoUvxRaSooN 93Oyc+WLXbpJrhe3PsKhe fx6kam8rmySe0 XzInZSQdldZahPafFFM2y 7TsMe28A89kPAfmIGPjLS VkZWLvAVCmqEwtiq2ipC1 wIi8+PGNvbCB3 hPL3xW1lYFQeNnX8SFmoU 152NoDhiEYrOxocv9ooz2 dkmYx9OsJmYMQvnaKkqLu oKRP0r2ZfIy21 N50nNCldVBOmYSCuPRUbH MSgvWtscc4utK3jSr5+PC 8ny1foai48jV18pPD+PHR mNHS7kKreBVfp OYSrlS7cBGhhToD4UQJnJ uKicM56rHDoPPklRs3unL rtuUsdDK3eOADmczkjm57 7KjYyn3xvKDOh eSFcROxzGPT0V56ds8I3V DLoYNMsNMO4qMI4jW5poM lnbjogbGVmdDsgdmVydGl yHYamCPopU867 IHRvcDsnPlBhdGllbnQgT bAfYLe0W6ShLbl0PVQotF hjCB1rpRMgQCykNw0puOf pmBdkEC2lOHEu ewyqq546ApTpr2zkCUEba RXrQDxhECA7A47pi4Q9YU CpDKFbCNJ8zSK5mM7heYd nbjogbGVmdDsg hpGtcNbbOJewJUlbA566E HRvcDsnPkJpcnRoIERhdG C4MJ99NV88mYPjt2P0uTJ 8F2MsZMWrsxys djbqcHL0FPRiCZZnyA16C k7nfEydMt9wITLuFAC7RE KycARxX5MhxT3nNwCaSFQ cMFYuI0RczIOo ZZpkB807TDhvJeY8UXKtx dYxS4XfQVRbjExjLbI9v0 U3Pe9AH7A3RD39EW13oID dn2U5qOJ7N7Kr UOXwyqyznvvatUW0OVXlS NWusM02Fc5dqDhhSg8tRU UkYOU5AJYagGFpF1KcgA8 yOiAjMDAwMDAw P3KikZVeKQyiB039YSoiZ lF5LHJlgvEiO4QyIVTywQ ydYfS1p7P7Gp2YYNb7NS0 4VI79sONmh1V1 kUG6H2DiOMKznhjoxxrfd VP0FPGmKBTxyD67Vm5ccF knXi3kYYJhKDT2IPGrvRX dV2TvsS2yFjMn ERQoFXBzK9WbsDDkRUyxQ 513YSbnVxZ0KPTizbFbG6 GhIQAvpPbfHgE3y8N9Xw9 DJSGyMJ92WPM1 dXW7DY09PM51Z4NcVrktw GFibGU+PHRhYmxlIHdpZH RoPScxMDAlJyBzdHlsZT0 cMk0dVIRlVEFq qYxwpCCiZiJvf9szBFCuC RxtKZ4gwJmfB9SseVC2FM Gsd0q4Wm78Z05zQ2RmpUV +QYAqxNT1wTX1 jI4qZlUqEhH6NXnxY924N hCwiWIfNhcqj7pul7qbpB r3FcR5NPEceaDidUwlCHN 9h6OtYl45W89f IHdpZHRoPSIxNSUiIHZhb Dmugv0drH4qDo5+PGNvbC E7hNI6wR3yXfSjNaP2OEg nE311VoXycBRu Brvub5ifd1vqqJq9NlFpQ MWyfsXkhByyOJK8d2CoVn 41T1EztQnaq2WzFvn8kv1 9sAWeq9D3sUW5 L5OfNPRmqxqtcZIyyHddR R8nAMVmgvvuAJZsxN4gMC TlI7r3EyBrGtU8USsvI5A hnaQ2DXJvjCQg FNwiUFY6C30si1S3URMiR MFqYRU2tBI6vG3frFdglo ogbGVmdDsgdmVydGljYWw iFYuhU230ANUb wBwtBQRokM4pCORjxRWke YdhUJ6yMHBtrgnkKgnNVM wsIFNIQVdOVEUgTUFSSUU 8Y3YxLqr2YSGa rUtvRN1vwNYfVIlkKp0ti HirzOtvLJ9kIMCsjoppVE JibP5kNNFpyAAoxSuyWV0 iGKXmxrvgk721 YkKsVEF4QRYwyQOjA0Dxv R5bDhIwMUMrOFQaC9OqnC FpHNwoK121FIsoMrN2WUK pxuHbT9NbKJOb eFxvTzD6o9V9Oi5yPN9jW m0vAVf8FP70BE00gJUgv3 F7wKE3J0HzWKBgfphbnpu hsCU6QJPzWCFu hA68fLEjUBwvFi8aj3J5f 350NIAxVQGlmT83Cm3qfP anQECauOQVhQ6pxobjr9n vcjogIzAwMDAw SCl3URk5XAGzqYavTfSjE NJ8RqG4DBJ1sYObdZ7aeB lplrjslG5qCqb+MzYgWWV qphT3M3RqXig3 YUSuvOzjSE3mpTLtGXrlI q7erXdwrTsuVD8bGISdjf ytTITuqX9tJJZqqLYtyYi eHA0fZODsdzwx c384OiWeLLD1ONNczVMtX 9ZmhL2sOnUvGQScNRQjJ4 YwgUIaZVceM570CCmzFzE 5SLThnkTzZ3Qs FEQmzLgfMcE3k5F7Yu3RO Y4EGFU4K4UhEbz7GXKqiM glBM8hdHMcLXjcMq2vkJu rpVdyQI5nXOCg kdpiKQWybW3kALBvjXLrz KovBB3iSQMtwvlkt595Un HwRWU1BMTnaDOmN7DvwG5 yOiAjMDAwMDAw G5PyqVCsRWopC438GBkeG yU2BQHbclXsX4YgGLIicE mbKcT4i4C4Md9PdVZnU3N bN7i0Z1AaXzbi dHI+DN32NKNpMH99sPGvr REly1nbuYu7TuPjJVBaLM P8nXfyFGvqv8PyJKFuW00 wsMMxj7B8BPJb rHxhxZNkBhNpjLU5vV1jP Idnejqkb7xlyfbpDiomw4 nbkg82rE91K04rCAfgKCM oPSIzMCUiIHZh nJsaor6auZ0eFw5+PGNvb MK8bDT9dV0dOlYgQhC7HM epU762KxMonTUhBeblb2i vz4figKk4MdVz QLFczzNdfNapKHD1f5JuX p28W99iDPspHUEiSTOlCC QhMOWigCwluy2hkB0sIi3 +OR6jw5rlwn48 qW92yVT+RETmKUT1aAhyQ UvjMUJrkH2qXYcbNcP7OL QqRaQxfL81qEBbYHxvUk6 soBhoqJtoXV7c UWNtqlrlk659PbFse1iiY GOvyPYhNJarBDC3R72qq8 V7CQNqOQAvHFG4jPS9lE9 hbGlnbjogbGVm dDsgdmVydGljYWwtYWxpZ 913AGQjxIsoHmLrdRJqO7 ipczYMAG1vYqtuvGF+PHR lMZU9wTlmNEhk XCByvX1cLZMeO9j7RyScV tR9XHpxO0YsnjU9KVYulL ImNKYwiTCQuM8jentxv4t vcjogIzAwMDAw LWe0FCf8RAFdtBqyGtCkE RD6XmN4GVG5rXSitL5sxV iomwrtbA1dSwl+RklOOjw vdGQ+PHRkIHN0 cQyoLFzjAKIigX8qSOVpF 3j4MgPfFmD6PIkmK6Rhmd H9KZFkrELkHPOqdMSRqB6 tknlsk4jvrmtu BtDkEVCsPRb6XQf8COSxn LptQqWiDCT9WdW9FVF6pC OvaZ5zeFyunowtzD1eKho +TVJOOjwvdGQ+ HCTjBRF1sNpxIOnxMTVfc S3gMGXvB1y8FbCyFbF5OM bxK3GpfrM5VBUskXRrSKK zkJGZcU8nkfbh w0sagsbmHaPaAZOoBPm3F Lo0CDPjiHmySfStBQU4Ob J1AUQ1lYFgvH4nxQzepwt zvI4eUkh+UGF5 XBG8UD74TU01R4ViCbblk GFibGU+PHRhYmxlIHdpZH RoPScxMDAlJyBzdHlsZT0 oSi8kVMSnQODb bGx (more content not included)... Normal [facility] ED Note-Nursingon 02-17-2021 ED Note-Nursing Patient called and informed of positive Covid results. No questions/concerns. Normal [facility] 2019 Novel Coronavirus (CoVI D-19), TERESE on 02-16-2021 SARS-CoV-2 (COVID-19) RNA TERESE+probe Ql (Unsp spec) Detected Abnormal Not Detected [facility] Comment on above: Order Comment: [phone] Result Comment: Yamilet ents who have a positive COVID-19 test result may now have treatment options. Treatment options are available for patients with mild to moderate symptoms and for hospitalized patients. Visit our website at [email or web address] for resources and information. This nucleic acid amplification test was developed and its performance characteristics determined by [employer]. Nucleic acid amplification tests include RT- PCR [...] detected) result in this assay. Performed At: [facility] [id number] Shanna Correa PhD Ph:[phone] Performed By: #### 6 [id number] ####[facility] ([facility])[address] [place] [id number] ED Clinical Summaryon 2020 ED Clinical Summary [facility] - Emergency Department [address] [place], [place] [id number] ED Clinical Summary PERSON INFORMATION Name: TALHA BELL Age: 35 Years Sex: FEMALE : 1985 MRN: Acct#: Visit Reason: Cough; Sore throat - Adult; SORE THROAT, NAUSEA, WEAKNESS Arrival: 02/15/2021 13:59:29 Discharge: 02/15/2021 15:33:00 LOS: 000 01:34 Check In: 02/15/2021 13:59:29 Checkout:02/15/2021 15:33:00 Address: [address] [address] PCP: SAVANNAH RODRIGUEZ PROVIDER INFORMATION Provider Role [...] Medical history: Resolved URI (upper respiratory infection) ([id number]): Resolved.. Family history: No family history items have been selected or recorded.. Social history: Social & Psychosocial Habits Alcohol 01/31/2020 Alcohol Use: Current Type: Wine Frequency: 1-2 times per week 08/22/2020 Alcohol Use: Current Frequency: 1-2 times per week Substance Abuse 01/31/2020 Substance use: Current Comment: Tonio - 01/31/2020 19:00 - Ewa Baca RN [...] or hot potato voice appreciated NECK: -Supple ([id number]-bh-wwfwk): non-tender. -No swelling of anterior neck or [...] pain with (more content not included)... Normal [facility] ED Note - Physicianon 2020 ED [...] Medical history: Resolved URI (upper respiratory infection) ([id number]): Resolved.. Family history: No family history items [...] or hot potato voice appreciated NECK: -Supple ([id number]): non-tender. -No swelling of anterior neck or [...] other p (more content not included)... Normal [facility] ED Note-Nursingon 02-15-2021 ED Note-Nursing Pt presents to ED r/ t sore throat and burning when she coughs. Pt also c/o h/a. Pt states her boyfriend is here now and is COVID positive and she wanted to know if she has COVID. Resps even and unlabored, vitals stable no signs of distress at this time. Normal [facility] ED Patient Summaryon 021 ED Patient Summary [facility] - Emergency Department [address] [place] [address] PATIENT DISCHARGE INSTRUCTIONS Patient Information Name: TALHA BELL Age: 35 Years Date of : 1985 Reason For Visit: Cough; Sore throat - Adult; SORE THROAT, NAUSEA, WEAKNESS Arrival Time: 02/15/2021 13:59:29 Primary Care Physician: SAVANNAH RODRIGUEZ Attending Physician: Tiburcio Kennedy DO Comment: Visit Diagnosis: Diagnoses This Visit Cough ([id number]) Cough (R05.9) Exposure to COVID-19 virus (Z20.822) Sore throat - Adult ([id number]) Prescription Information: If you have been given a prescription for narcotics, seek immediate medical attention if you have any difficulty breathing or any sudden status changes such as confusion and sleepiness. If you or anyone you know is experiencing suicidal thoughts, mental health, alcohol and/or drug addiction problems; contact the [facility] 26/11 Crisis Hotline -Text 4HMVA fv 747438. If you received any narcotics, sedation, or [...] any legal documents With: Address: When: S[address]NAH [address] [place] [address] Business (1) Within 3 to 5 days Comments: Follow-up primary care provider as needed for reevaluation. Continue supportive care measures at home as discussed with plenty of rest and fluids, Tylenol for aches and pains, baby aspirin a day, Vicks vapor rub for congestion, honey as a natural cough suppressant, kdpm-hju-mmrlbdg Mucinex. Return to the emergency department for any high spiking fevers 102 or greater, intractable vomiting, crushing chest pains, struggling to breathe. Medication Information: The exam and treatment you received today in the [facility] Emergency Department were for an urgent problem and are not intended as complete care. It is important for you to follow up with a doctor, nurse practitioner, or physician?s printer assistant for ongoing care. If your symptoms [...] so we can reach you if necessary. [facility] Emergency Department has provided you with a complete list of medications post discharge. Please inform your theater set production designer/provider of your visit and for further instruction [...] Quarantine vs. Isolatio (more content not included)... [facility] Coding Summaryon 08-29-2020 Coding Summary HTMLBase 64 EtiwospvHNp9jLu+PGhlY WQ+AF5OAATlP04gkJSbdV 7VU0uJWI9ZHGEOKOHCCQ5 TXO8mbYE3NUaqO2ZzhmKl WowwhDBaVW72VGj4HWL1n JgzQClqsM9aqQFnX3a8Zn TlXE18aG80RUpqKZShAjA 3LjZpbjsgbWFy C7woVkTkzGGrFqx+PHRhY mxlIHdpZHRoPScxMDAlJy VueUcsRQ3jJn4yMTGkJVF vbGxhcHNlOiBj j8jqKAFcZKriXU1tvMslG 5FuzVX4DFLkp8w0Dz65fX I+HPCqZOH6fKjxANedk03 6XgSir5lgXTB3 eMUhYHqbAJE0A16jp7I7M CRkUGDkCCL7nWV6uV4cpP ibysulV0DghYAhPkL6SIX 8jSSkmD8ihTyv unydqV4gWge+Y58OPD7DH WMPYU7MKrk2Z3ErSesayJ I+EL66LGSeXF86yCQinRH rf3kbxXt5MkAa NKYzFYV8oLywYRkkq2KdR RHwJ40yaXJsm2I0SGJdfT pfqGFiVcXfmFZ9gN9jSSg znvywg1dnclmj Fkofz8qefe23rW70C90kK BnaVVRjTIE9EFBlIORyyC zcqd8kkF9uUj6+PLajq4b zg2iecCj1XhUh MSDhggFfpRksPEI7j5DpO l34U8VggIzrb0RvGie8nc 61xFThi6D9hEA4FSubMNT arD6gGLgzNvN9 MPNjMwRrqJ96cRQvDTxgH a0bmPybwPlhGW0sCCYplx weALZmcX3wCTBwpTHpoLf iWK5bWUKntykg s801KaTnFHI2XQHrcMGkD 0RhmX2fAsYqPROrMXNtR6 CjpHAgKYwzV321DOtbVqQ 7WWCvlaDbV4Fo RPJedJprVrA0v7K4Pp3Ul 3VbzlriDYR6ONgnXEW6Le D5HmBjXfS1U6GjKby9OSJ rnCyjNJ4fZ0Dw PSYoltjlcgobgQY8RKLqV YYdfU32gGEvFGraNt1ak7 V3e651WRFnJQQsnJ18Tl1 udDogMTBwdCBU hI1zxagjo0tiwmklItRbE JNmZBc2EDq2XIEtcAxwEr DdJSM5HsL8SUH6nTXvxU9 qdLpivbbptL4x Oyc+X44unW7kQUO3BDE2r zmdNRPzufQqSO41YT77X2 RyPjwvdGFibGU+PGRpdiB jjSfqRD4jUmAx j1uoc2JsWEhiZ8ZfQFOjA CcmIij7OEDsVUJ5bJC0bM 4bGLBfEQixl7Y2hWU5W9D tviHcfo5sx5wx OVQrVUnrM96cvRQyk4Z8K FIwoQU2IZImhBltGvYlpL 93Oyc+MOTrkIahl2PvOlj ic0obc2lkkTj4 DaSyHGXnszDeeGpyHKU2w 5YxQa34K35wENeyGIJmFE CgJKRiXIXgqFegcl7utC0 wIi8+PGNvbCB3 tAG3qP4cBLRoOtM0QGzrL 776YbUzlHKeTqoue0mbv3 buwLr8VoRkFHKhtfYxaTx zWFZ2k7TxRv46 W26yGAdsJYUaHDOyAUElZ SOqeHczbx8qzV1hBk3+PC 0gi0uzuc95mZ88bFK+PHR pGKY7uMcoEMzs OLWvqV1dOPdtAzP7GIKrE uVnfK90mBWfSHibJh8lfU zbsNhrBB7zXSBhyafvd29 9VnMpn2etHCBz aXIxPVhgGFI2L13hn4S0S AKwBDByTYK7fWQ8cD3ttW lnbjogbGVmdDsgdmVydGl qIEbdMUxsU092 IHRvcDsnPlBhdGllbnQgT wWwAAk8D2QuZnu1XWEcwW awFG2ojWWhLVbdGj0onVj llGbdYK1gLYZk jzaap031PtVqo7knAFHil ATwSOcmAOZ4A69cp2V2FY RiYJKaRZC3jXC0dR4zhTp nbjogbGVmdDsg ikPenPuxYRckUPlzT309J HRvcDsnPkJpcnRoIERhdG G0JN72HC85dQFyc4Z4xCF 2Q2HpSGBvmsej hwnimBS4AXOlIRDrjG28R v4ouUrqRy5wFYPwRHD8FT PtuZWgO0NkkU9jAbFaQQQ oBCWxH8KubINa LFfeB189TOkqZdR7REZrn xIwO5IzGZAkjWxkRwL6t9 N2Er1GU5D4EZ59ND87cRS il8B0sQL2R4Az BPItqagwtvrjfSH4NBMlY DMmrE44Kk4eiPdtKw0sOE KxAHX3MYRpcWHhM7PgxF8 yOiAjMDAwMDAw G1WqqJRyOQpcO760KKkwW mY0XSCozqYuO8VfKTDrbD odXxH3z2U2Ad0UUSh4NY9 9OF11lDAks5O5 qRG3W4SsRBUmcnlasnfwj UA7CRXfDEYrjO99Qo7hrA rqMz9sWWRzOLV8BJIecUL uR0QtdV2eChJs WVGjPSMhK4NlnOSsATguI 616JTdbNhM4NCBxljUjI2 DkDQHlpSyvLmI7y5U2Pg0 ONNAvDD80NWV9 fHP8OG62HK73E7JlYyzgz GFibGU+PHRhYmxlIHdpZH RoPScxMDAlJyBzdHlsZT0 lRl5vKGWsCZQo zGymiNQwYlImx4iaBSCdE NtjMO0siQfqO1MqtGB3CH Fmf9i9Ij04Z92wK6IlhJC +GZIqqAF6hPM2 pO1hIsOrWyD5UTbbQ503S kMigFAwVuzla6bct8virL a1FdT0FZDvpbDlhQlqHHS 9j6BpGq40N38q IHdpZHRoPSIxNSUiIHZhb Pmcnt4kdQ1vSe1+PGNvbC U5qHP1mX9mPsGhUpQ1QHs pF273ZxVszQGa Gduvh1zub1zrcJo1KvRnH ROikuAkxVxaGPH4f0JuGf 14D9KwyWwlo6WqObm0yr1 1pPZat4N5kUS0 R7MbHXPpkuiiwLDrxReeV E3uKUUyvtpoRUMmbW8fXN OeH3x2UzJbFlS7EOieS8Z lsuD3BQXlxQBo UIelMZM0G27hu3I9FOMdS FTxITG7kBB0xL8esUlsbn ogbGVmdDsgdmVydGljYWw dZBqoR630CBVw kWzmDZXttX5sAFItvNSpw NvtQQ0xSIXuosipDrpBBN wsIFNIQVdOVEUgTUFSSUU 4J5OkLlk0XDPq yTxsKP3saAQmURcoLu6jo NxcxJjfNM6sRMGpfiqrKT PkiC3tEVNyrYFlrSzrRK9 tJYCjgylha827 DhXuQRK5WKEdzGEiN2Cvp W9iUuGdRLBpRSVhP7WveE KmFGdqF143COfoCnT2AXB vmjChP1MxISXk rFjrIaJ8w9J5Mm5bQM3uA z1nOVi3WZ10NC92hIOhc9 N9kKA7O7PtCVDlaxkdnrc pqRL4RJBcHNTc lT20bBWdQBhgBm8ho3Y0t 729ZDOiBQSojS37Qh1neO vnOTNzaKIUgD8dogeuo2x vcjogIzAwMDAw YAg3NAa7COOniGtvVlNpX YW8CzG8LNL6bFZxzV0efL tircuzdS6aMjp+MzYgWWV oqkP2A9YdZmz6 IUUelAnnBS3giAMpFNxaP t9jaMybiZumVI3qKRTgfm lwKJFjkS9xDQRfmMMtiJq hHW2sFPRpnrjn p099LdImLVO3RAVzeXNcJ 6VjhY8wKlVcQPUqSVSbT8 NloEMhIKzvC972WOseZwD 5BABnkwVyT9Qh GGWuoCaoMcW5l8Q6Gc9LU Z8NHUU8S0NtLrn0YKSgvP siJW7vlPSrETaoMd0imDn gyDbbNK6uVWQn kyytAJYdoN3iOSJmtKYnk QfyAG3eLGFhwxgnc566Fu ZuDIN2ZYPqsFWmN3SvqZ6 yOiAjMDAwMDAw J3BizAVwCFooJ603JOaxV bC9EYDbdkKpQ9MqESNswR ypIbL0y4S6Ul3NQGytnRY +ZC76aj05Z6Ef FidrDrw9IAYhHXV4pVG6j V2mPZGuUTdwu6P8uUM2Y4 EmhjNkov4hj4egFHCcSUv yN43kvQZch8R9 CBGcvFG3UUAerGvnWzRnm G93Oyc+VHZtrLntd9ApZm pvn5cez3wxmFq1SbOjGSA gdmFsaWduPSJ0 n9ZmXz17J39tBEmvQPCtD WRkRCVvSUYwvYolzm1mvH 9wIi8+THYmhSU8oYS6rP1 eIbAcPxD3HLcp Z110FxBhzRIiLpgvc6qls 5nihMp4JxJeLCZzseDmxL qjMFQ7h8MsKa87N8NskIq qd2LsWry1ge04 qWTkq2X3jYZ4L0PgJDAcn cuocWQagEenIW1aTCCurt duIYElwB2hBPZbP9o0ZiR qQtH9KEygV5Xg hvJ0PNMvfZMbMMErmTRSx O2xqocwt1kbpkbdLfTkDR NyIPj8UVb0NTNccDbrNuH pHWW3LqO6FYG5 bQGwkZ1meItznzknmH1wM yc+AId4z0qeeSQdRS7yhH P4EI52OF17wYKjt8G5yCA 7P7EsRFIstqxq kpzdyRH0QRHyCUVltP29Y d5jpMybSq4aYYPaUWL6YA SgzFPbT0QwlG2bFzGfMBX yWWAjC0UczKVx VBaxR252VHqgArP9ITVmx aZrN3TdJOFwyVdtVlW0e6 E3Lv4YHW10VV15WE94jST gs5C4hII9N3Ot EZIfewfwemljyFS3XGKeR HRmrC42Td9eyRakBc1iRI BpJHF6DOQqmREfC4KhxA1 yOiAjMDAwMDAw X2YkkLPwDLxpE330IUpbV xS4PBOigqMqM7GbVUPceM siGnB3d0Z7Ti9EOl22HM1 4EI06dMKiq4V1 pHN7R3QaKELgegeanbfbl UQ7XHQuVFXgwC67Yc5ydG rhZf0eHUKkCUR1VTVxnRD zU0HveW3cTrUd LPCiLUOeX6RmqMJbVAnfP 538VYwfXpH5FGJfyyLdP3 GfVKCdxEziEzD6b7Z3Vn0 GYPkxqgp3Y3Qb PjwvdHI+PR82LPLyTV97x CKatQFtg7qtvOb3BhUwDN QkUHW9lZyiPOrna3VzZXD aM84huFWlg5I0 IGN (more content not included)... [facility] Coding Summary HTMLBase 64 OcwbbicxQMd3fSv+PGhlY WQ+KD9DLJWcG50bfTMwyU 1GP8hPKA6TGRABLEKXGY6 GFJ7dqSU1QWyzP3SorgNc QegijNEcNE50STq8QNN8f DjcZYtshN5qxKQpS5i8Hh EdOG46yU32AUosPPNzZwO 3LjZpbjsgbWFy H5wzAhIxpXWtAhs+PHRhY mxlIHdpZHRoPScxMDAlJy MhhAbbRT7iDz2vXADwFBR vbGxhcHNlOiBj k3kcNUQoOTelFS0fhTdvX 6RzjZL1PPDeu2b7Fz45wH I+CKGaWAR6uLxrSJvms21 5CvIar2egAQX0 aIYoZWszGTZ0D86mu3R3H DSoTZZrLSZ5gOQ6gB1caB scyrlaZ9OvaNTbIpH7EPN 5sYRxcD2edEib pmjkyZ0yRlr+X83BAM4NG CRRCM1PTgt8N3RlObxqfT I+AR73EERuJP47dLWcwFX qz4bmwEo2CjRd NLHtDSM0eVlbEIvcf4UyF PVbL64cqXYis0B3KCAzaO ciyMCgRmNzkWZ9gM2yBDz vvzpbc9swjcfa Xxknv6dscw43cF68C46tZ DnbJFNoEEQ1UXZrNQVnnG lekv2yfH6iWo9+RKwek6l qy7iagHe5LfHi EGXeyzWxcMubSUC7i0AzR r81Y0TcqJboq5BnBev5ie 16oMYwb3P8mXJ4SFgbWBB zbZ3tLZeiYtM8 WJZiDfPtiU29rRKiTJkeR w1jcYsapDxmMY0lXTSucr jrXKKrcK5eLYEahOVimRf tRQ3gMVYlgqxu r797ZnChKDP2JHPglBFoP 5SnoX5dKuLhMYWcYHBsI0 CvfRNlHGzwB073RMnkOwH 2BKGdctOkR7Yb OKUvyGeeDmX1i2A8Xc7Ia 4KkvwmtXJT0UZnlUZA0Qg C5RxCkFfH6M4RmDag3LTK hzKkqUQ6iA8Ot FKUiyadwxfbgkLP4SGIhK OAeuA35aSNqSRerRt3ll6 D3j197YJOiNAPrpH26Nx1 udDogMTBwdCBU oI6wrtqil7laapgfZpJyO GUqWSr6YEx1ORXwvUpeCd YnRAM9CjK8LGL4vLBfmO3 guOryxyijhQ4t Oyc+E64viD9gNIC5WAZ9t sljIBNncwArXF19ZW61S1 RyPjwvdGFibGU+PGRpdiB rfEetNB8rOdEr n3nws1PoHNwyH1EaURDeB PoeNxw6BGNqHGO9pJP9jJ 5nZVUyDXkxo2L5gHP1K0O nrgFyfs1qm5xa DAKbPWsyJ91ueEFsb4Q9T AWrnLJ0VSGfqPhlTpZpcM 93Oyc+WCPpnTjbr6JwFca pk5lkg9mqhKt9 RrZrSLVvgtZgjOzqDXU8o 2UpZc14O36rJMkgAZCyBB JfZCTkAQNeuKxtpw1rnF1 wIi8+PGNvbCB3 eQO9lW5dWRMuIkD9WGdrN 932OuUmxGVbGjvng0fjk0 nkwGs2BtKgGPHwfaKkuUs aAKS7s1YvEl66 M45mPXslTUBaKWBtHUWkT OArtNkqqc7ggY7vGj7+PC 8xc7bwvq48dE45mXN+PHR nTSU0rMziENgy DHWnvH2yYVmnOhB1KXGyR kNzvO87sULhWDjmIz7gmB kgoEqwWT7pGHOjwzoer11 3HgZfa6kuFGPp vOWrNCrbUQB6X44cj0V2R LSoIWCoMLP6fQG7hQ1brP lnbjogbGVmdDsgdmVydGl hSVrrLFxkX775 IHRvcDsnPlBhdGllbnQgT qYgAAs2K2GaNxe1FWEvbR whCB3zcQDnAEvwZy3lbHx meAnkPU8lQOSu nsunf299WdFcw7ifWPWzs EWeQApmWCN7W54yr2P2WJ CnKOAqBMI9qYP6kU2hkFw nbjogbGVmdDsg slIbjVedTKcjAYarF881V HRvcDsnPkJpcnRoIERhdG X9XS31WW11nOAth5D0iOO 7S7PoJBFuniuf xtixaRA4AATlBLGmuG33C u6oxJyhRo4oVEYhVBG9JJ XnmONzS0KxpB0iNbDkAFV xUMQqX7SlgHPr AXnzP896MTkcJiG3BYJbg wJoO3SbJVTjoShwBgO3k2 V3Gz8QO7L1GF81UO18jYN qa3Z5jDX7Q1Vo WOJmdbjhwhhejRE3NXMzN GGmiK69Le1pnEssYi0rLY NaNHH3IWOkzYNvS1LpvJ6 yOiAjMDAwMDAw N1PqtNKjBAivF862PYxgC gT9OVNmuvKaN3QpLHIjiI zaRmJ8k0O8Dp0OCEk0KB3 9BB32lCGlx5R9 nZD7U5WiNPGrrfijpiqde NF6XBUgULErzT55Le3yqC rcBv9yDHEiRSK3BBIyeQL sK0DvzX8dYvIs BVXwMDEuQ5VkwZLhPSkbI 572MYroTsN6ENAulnBoB3 FfEBYfbSpwWeO3v5Q3Xq3 ZTEQpSR69ZWZ1 dPO2BD35SD43Y1RbWqvkw GFibGU+PHRhYmxlIHdpZH RoPScxMDAlJyBzdHlsZT0 eSb4eMVRjZCAh zWfnnSXoLfVbm6fgWAXwM WpwWV6lyIqeV1EbiHW6SA Unj2m2Ul88M81lS8BsdNE +LEPceKW7wLF7 fZ2nBoBlTuA8SVtbU175F nJldZErPklbc8lge8juzG b5UwZ4WRFzjbWbzJzsYHO 4l3YiWi50E34z IHdpZHRoPSIxNSUiIHZhb Qomqy0cqU6rZg9+PGNvbC I8pZI0yU2oSzHcJxQ5RBp zP428KuHfyKSa Siaoc9mnn5yfnCj7PgRgM ZDsyiTkoBsxGMK2n8KtNg 24E7RfxZnej0RsMwl2lg1 2uDTik2S6zHL0 T0OnACGpfgcyrFCtkXtoB F8tFTLyfdloSIIqnM6bBW IyH6q1EvWzFlE0RFdkW1B yktE0YFVilBFp XBfgZWP4Z35kk0T6RUBnV FAhAEX0kQX1eW3mjWoiuz ogbGVmdDsgdmVydGljYWw kVQpeK563JINk rCehEYHucD9gVXNxxOYcb KnsUA2tSIMhocexNxqUQS wsIFNIQVdOVEUgTUFSSUU 3X1PtDxk1MZPl gNztAT1qtMIuSAvmDp5qn DujjJkbBV8eTNKazxrdZU XnuT8iVUVlhGAfjZwbAG6 rROPkxdfnl898 XzPkQER9EOQhhPHiE8Ful G5qIaMcZEXhRHXoZ5KlyM NsTOqjW439BVpaYjX9LQQ fiqAwC2ZcKDFr lWozSnL0g4V5Zo3fUU1vX v1dVQd0XS35FC17nXVem3 V7aTQ1B4SlRHYtnbckxez riBZ2NOAcNOXa pN67xBZvAUbsPv2xv5D5e 457SUNwTSHxsF41Qo9wxV frBXIssUKLtH6gqalzr2h vcjogIzAwMDAw AOq9JTo6GOYzxEizJpObR KS4OqV5KZE3sMHhvQ2faZ xhxcworX0uBih+MzYgWWV hdeG1Q0YvChf0 IHAugLneYW5qeLDyTHvmD q8ywSnaeZguPA5rBFVmtm bnNPMrcJ5oPDKqbVRvvFn lSM2rPAQfdqvo d080VnJjVRB7JLNcyOWhH 7VfyX0tEeIzEUIfDYWnD8 NauOAwZOkmA751LYesCnO 9UKZgqsMyV7Zn YPEafIbaNjA8t8F0Mg2VG Z9HMHV9V5ClUby7MGBvpM qfEW6stYRjSRfcGy1myDu dcDvoGI3bWEEe nueqVMTinG9bHBQhcDQug PqiAL5iSGKfluzvt481Qp TlTDM8MHMuwWKiF9ElrF1 yOiAjMDAwMDAw R9AgkTZhLDqwT497PVzdM qC5EFLvpvZfT5KoZRAjlZ joKwP6y3H0Ri0TdCToQ7G sX5q3M0VxKoov dHI+SE98DIBhPH13lHWdx WYvb6fxhEi3LgKfERHbIK V3hGfyPGqbe0KoYEZgZ75 unXImi4I3HLIl pOnowXTbGgGwsIJ9rB4uB Ajkddfbt2stsfeoWqfcn6 owgc89hP20Q57aPCchHBI oPSIzMCUiIHZh nAdwcx7rjE5eYt8+PGNvb ZH2pAE3xO2oAuYtZwL2TF nxH075ToRwxCAfHtrgr3h hu6rxiGn2BoJq URLptpNaaElhAHZ8p4FlT n30S52qXEkmYYBqXZFlJC HpKMVpoDnmtx8rvG1hWs7 +DA3pr3tqwj89 aY77qOZ+DFMbCIM9zFpqU BnkVCGmsA9fFCkpFzT0TW RpKkCpaQ24oPMeSVyxFf3 smKzfoTibJZ9r EVDqsdjfb296VlKfk8umE LGynOHxWNkhWZN0U39ai2 F1UJQdOFRiLHW3tSZ9bD7 hbGlnbjogbGVm dDsgdmVydGljYWwtYWxpZ 211PNDuvQrsSlTewMFbV7 nmmfFQBK6iJzmxvUC+PHR hTEB5rAmvEFhq TKLkeO2eHISlB6q0XyHgE bC7GMsqI7QnogB5MQGcdR BmDRDxsWFXkT2ptgspq0c vcjogIzAwMDAw OPh1KXy2TBErvRyqVrVnJ VE3EcB4YUO1bDBplB4rkB moletxpL7lYly+RklOOjw vdGQ+PHRkIHN0 zDsmRCmlVNZidC9tGUOtH 5x4WcIbGiD1ASgmF3Jvye X9NWHuvYHfBAYrbWFXpW9 ogdtlt4xbesdt BuHgZFNwUJc6XSc5DQBij WjtZwDuAKU5CnP6JCZ0wN VlxK4qoUwyxuiqwJ7mExr +TVJOOjwvdGQ+ QGGlFMF0rAlkIYzrYJPtn C5vKMJjB8y4DjOsLdS3TM mkH0IwybB5XWAurZWqLUX ghGAWsX1qvhjr g3oxrrclTwBmIBRmCEy5D Xd2OIRqyKuuEfHyNRJ1Cw Y5SRJ3eGZplO4osXqekoz zeH2qFjg+UGF5 RFC5JC33WF32S4WmYrtvc GFibGU+PHRhYmxlIHdpZH RoPScxMDAlJyBzdHlsZT0 gBg2lCWMoBLEz bGx (more content not included)... [facility] Chlamydia trachomatis, TERESE L Con 08-25-2020 Chlamydia trachomatis, TERESE LC Negative Invalid Interpretation Code Negative [facility] Comment on above: Order Comment: Send results to Dr. Rojas Result Comment: Perf ormed At: =[facility] [place]A Marx [id number] Beatriz Reyez MD Ph:[phone] Performed By: #### 1 [id number] ####[facility] (DEFAULT)[address] [place] [address] 21992 C Urineon 08-24-2020 C Urine No growth at 2 days. Normal [facility] Comment on above: Performed By: #### 6 [id number] ####[facility] (DEFAULT)[address] [place] [address] 28803 .Auto Diff 1on 08-22-2020 Auto Panola % 7 % Normal 1-12 [facility] Comment on above: Performed By: #### 1 [id number], 42722254, 6023608, [id number], [id number] ####[facility] (DEFAULT)[address] [place] [address] Baso Abs# 0.0 x10 Normal 0.0-0.2 [facility] Comment on above: Performed By: #### 1 [id number], 46504963, 1858701, 7649700289, [id number] ####[facility] (DEFAULT)[address] [place] [address] 11188 Basophils/100 WBC (Bld) 0.2 % Normal 0.2-2.0 [facility] Comment on above: Performed By: #### 1 [id number], 49940027, 2626984, 5572305156, [id number] ####[facility] (DEFAULT)[address] [place] [address] 70980 Eos Abs# 0.1 x10 Normal 0.0-0.4 [facility] Comment on above: Performed By: #### 1 477074738, 70928768, 2436339, 3617310307, [id number] ####[facility] (DEFAULT)[address] [place] [address] 36717 Eosinophils/100 WBC (Bld) 1.3 % Normal 0.9-4.0 [facility] Comment on above: Performed By: #### 1 741163805, 44972232, 9925909, 6383644592, [id number] ####[facility] (DEFAULT)[address] [place] [address] 93670 Lymph Abs# 1.9 x10 Normal 1.3-2.9 [facility] Comment on above: Performed By: #### 1 772598851, 06303807, 3322786, 6032826694, [id number] ####[facility] (DEFAULT)[address] [place] [address] 35096 Lymphocytes/100 WBC (Bld) 35 % Normal 14-48 [facility] Comment on above: Performed By: #### 1 [id number], 68497737, 0746321, 0273242331, [id number] ####[facility] (DEFAULT)[address] [place] [address] 80336 Panola Abs# 0.4 x10 Normal 0.0-0.8 [facility] Comment on above: Performed By: #### 1 [id number], 88459201, 0244929, 7683328845, 8204236939 ####[facility] (DEFAULT)[address] [place] [address] Neut Abs# 3.0 x10 Normal 1.5-9.2 [facility] Comment on above: Performed By: #### 1 027844906, 28568212, 1570012, 0538966318, 1357748522 ####[facility] (DEFAULT)[address] [place] [address] 06474 Neutrophils/100 WBC (Bld) 56 % Normal 44-88 [facility] Comment on above: Performed By: #### 1 [id number], 87683554, 6553308, 7287207600, 6404206525 ####[facility] (DEFAULT)[address] [place] [address] 86233 C Genitalon 08-22-2020 C Genital Send results to Dr. Rojas circuit walker Heavy growth of Gardnerella vaginalis No HILTON performed on this organism No growth of GC at 3 days. Gram Negative Diplococci not seen. 4+ Gram Positive Cocci 4+ Gram Negative Rods 2+ Gram Positive Rods 1+ White Blood Cells Normal [facility] Comment on above: Performed By: #### 2 [id number] ####[facility] (DEFAULT)[address] [place] [address] 73399 CBC w/ Auto Diffon 04-19-202 1 Erythrocyte distribution width (RBC) [Ratio] 14.3 % Normal 11.5-15.0 [facility] Comment on above: Performed By: #### 1 [id number], 82704410, 1422608, 2451340660, [id number] ####[facility] (DEFAULT)[address] [place] [address] Hematocrit (Bld) [Volume fraction] 34.4 % Normal 33.7-40.4 [facility] Comment on above: Performed By: #### 1 895761001, 51017469, 2158133, 2594129916, [id number] ####[facility] (DEFAULT)[address] [place] [address] Hemoglobin (Bld) [Mass/Vol] 11.2 g/dL Low 11.3-15.9 [facility] Comment on above: Performed By: #### 1 882342314, 34925937, 2094553, 0188704132, 3833455914 ####[facility] (DEFAULT)[address] [place] [address] Instr WBC 5.4 x10 Invalid Interpretation Code [facility] Comment on above: Performed By: #### 1 150868857, 99819476, 7742124, 2098822456, 1781807015 ####[facility] (DEFAULT)[address] [place] [address] 68882 Man Diff? Auto Normal [facility] Comment on above: Performed By: #### 1 753994182, 32314268, 2460655, 4800344802, 0491739737 ####[facility] (DEFAULT)[address] [place] [address] 41963 MCH (RBC) [Entitic mass] 28 pg Normal 24-34 [facility] Comment on above: Performed By: #### 1 889683428, 40448491, 2694005, 6491918343, 2174741605 ####[facility] (DEFAULT)[address] [place] [address] 22728 MCHC (RBC) [Mass/Vol] 33 g/dL Normal 26-37 [facility] Comment on above: Performed By: #### 1 659919244, 75956141, 2104451, 7823953080, 4469929461 ####[facility] (DEFAULT)[address] [place] [address] 75995 MCV (RBC) [Entitic vol] 84 fL Normal 81-100 [facility] Comment on above: Performed By: #### 1 114769440, 91222103, 5392438, 8422686163, 1985313241 ####[facility] (DEFAULT)[address] [place] [address] Platelet 200 x10 Normal 138-427 [facility] Comment on above: Performed By: #### 1 969935237, 51332199, 8150796, 5234008622, 2577438872 ####[facility] (DEFAULT)[address] [place] [address] Platelet mean volume (Bld) [Entitic vol] 11.3 fL High 6.3-10.2 [facility] Comment on above: Performed By: #### 1 [id number], 99221953, 3031036, 0737107552, 0221554611 ####[facility] (DEFAULT)[address] [place] [address] 34305 RBC 4.07 x10 Normal 3.70-5.30 [facility] Comment on above: Performed By: #### 1 818177439, 95623984, 9072111, 1392390899, 7848163848 ####[facility] (DEFAULT)[address] [place] [address] 37823 WBC 5.4 x10 Normal 3.5-10.5 [facility] Comment on above: Performed By: #### 1 057080476, 92891034, 3813845, 0936450187, 0021014443 ####[facility] (DEFAULT)[address] [place] [address] 75709 CMP Standardon 08-22-2020 eGFR Non AA >60 Invalid Interpretation Code [facility] Comment on above: Performed By: #### 1 440889856, 59421883, 6185240, 2832440104, 6868946576 ####[facility] (DEFAULT)[address] [place] [address] eGFR AA >60 Invalid Interpretation Code [facility] Comment on above: Result Comment: Sales Promotion Coordinator alejandra Kidney disease could be indicated at eGFRs of less than 60 ml/min/1.73m2. Kidney Failure is indicated at less than 15 ml/min/1.73m2 Performed By: #### 1 651215371, 81023711, 6043447, 2002670806, 9330425831 ####[facility] (DEFAULT)[address] [place] [address] 02371 Albumin [Mass/Vol] 4.6 g/dL Normal 3.5-5.0 [facility] Comment on above: Performed By: #### 1 526944630, 58502240, 8709464, 2092444938, 2295400397 ####[facility] (DEFAULT)[address] [place] [address] 17272 Albumin/Globulin [Mass ratio] 1.8 {ratio} Normal 1.4-2.6 [facility] Comment on above: Performed By: #### 1 389844834, 75020157, 4756169, 6894180273, 1097171621 ####[facility] (DEFAULT)[address] [place] [address] 74458 Alk Phos 61 IU/L Normal 32-91 [facility] Comment on above: Performed By: #### 1 278978563, 26722335, 7581934, 1613617883, 7416619464 ####[facility] (DEFAULT)[address] [place] [address] 19873 ALT [Catalytic activity/Vol] 16.0 U/L Normal 14.0-54.0 [facility] Comment on above: Performed By: #### 1 240471091, 16686847, 8290828, 5549386277, 1135964998 ####[facility] (DEFAULT)[address] [place] [address] 46807 Anion gap [Moles/Vol] 14.0 mmol/L Normal 5.0-19.0 [facility] Comment on above: Performed By: #### 1 695793822, 34598156, 9511130, 6874253985, 1836793790 ####[facility] (DEFAULT)[address] [place] [address] 54110 AST [Catalytic activity/Vol] 16 U/L Normal 15-41 [facility] Comment on above: Performed By: #### 1 573606326, 02963380, 0002026, 9022811703, 1046170995 ####[facility] (DEFAULT)[address] [place] [address] 08224 Bili Total 0.8 mg/dL Normal 0.3-1.2 [facility] Comment on above: Performed By: #### 1 031891867, 53963557, 3029032, 3167993542, 3336015675 ####[facility] (DEFAULT)[address] [place] [address] 78499 Calcium [Mass/Vol] 9.3 mg/dL Normal 8.9-10.3 [facility] Comment on above: Performed By: #### 1 453701140, 02391754, 6155964, 3948110833, 8489200362 ####[facility] (DEFAULT)[address] [place] [address] 93315 Chloride [Moles/Vol] 105 mmol/L Normal 101-111 [facility] Comment on above: Performed By: #### 1 762723518, 13336559, 3460425, 4445439989, 6269923469 ####[facility] (DEFAULT)[address] [place] [address] 27805 CO2 [Moles/Vol] 21 mmol/L Normal 21-32 [facility] Comment on above: Performed By: #### 1 552268524, 18175452, 8981433, 5121132836, 7702713474 ####[facility] (DEFAULT)[address] [place] [address] 08365 Creatinine [Mass/Vol] 0.90 mg/dL Normal 0.60-1.30 [facility] Comment on above: Performed By: #### 1 776450454, 88953180, 0668439, 3167611142, 3264289327 ####[facility] (DEFAULT)[address] [place] [address] 06302 Globulin (S) [Mass/Vol] 2.6 g/dL Normal 1.5-4.3 [facility] Comment on above: Performed By: #### 1 686059214, 87157753, 2877498, 1815768719, 1869511098 ####[facility] (DEFAULT)[address] [place] [address] 07152 Glucose [Mass/Vol] 99.0 mg/dL Normal 74.0-118.0 [facility] Comment on above: Performed By: #### 1 574765365, 90926984, 5436924, 5870978875, 9154658842 ####[facility] (DEFAULT)[address] [place] [address] 11555 Osmolality 272 mOsm/L Invalid Interpretation Code [facility] Comment on above: Performed By: #### 1 738871639, 08545562, 3202362, 6861282761, 2323529417 ####[facility] (DEFAULT)[address] [place] [address] 86981 Potassium [Moles/Vol] 3.8 mmol/L Normal 3.6-5.1 [facility] Comment on above: Performed By: #### 1 287632655, 24928152, 9791917, 4739303836, 1536705180 ####[facility] (DEFAULT)[address] [place] [address] 99732 Protein [Mass/Vol] 7.2 g/dL Normal 6.5-8.1 [facility] Comment on above: Performed By: #### 1 760361813, 70744455, 7282916, 8223314579, 8453286232 ####[facility] (DEFAULT)[address] [place] [address] 83976 Sodium [Moles/Vol] 136.0 mmol/L Normal 136.0-144.0 [facility] Comment on above: Performed By: #### 1 917874283, 74329116, 1209239, 1384845496, 5127800045 ####[facility] (DEFAULT)[address] [place] [address] 04860 Urea nitrogen [Mass/Vol] 13 mg/dL Normal 8-26 [facility] Comment on above: Performed By: #### 1 077452619, 77585282, 2831024, 1791358251, 6379584646 ####[facility] (DEFAULT)[address] [place] [address] Urea nitrogen/Creatinine [Mass ratio] 14.0 mg/mg Normal 4.6-16.2 [facility] Comment on above: Performed By: #### 1 404687692, 23523438, 3627751, 1546878154, 0490406305 ####[facility] (DEFAULT)[address] [place] [address] 89179 ED Clinical Summaryon 2020 ED Clinical Summary [facility] - Emergency Department [address] [place], [place] [id number] ED Clinical Summary PERSON INFORMATION Name: TALHA BELL Age: 35 Years Sex: FEMALE : 1985 MRN: Acct#: Visit Reason: Dysuria; Weakness; STD exposure; Pelvic pain; Flank pain; PELIVS PAIN, LEFT KIDNEY PAIN Arrival: 08/22/2020 17:41:37 Discharge: 08/22/2020 19:50:00 LOS: 000 02:09 Check In: 08/22/2020 17:41:37 Checkout:08/22/2020 19:50:00 Address: [address] [place] [address] PCP: SAVANNAH RODRIGUEZ PROVIDER INFORMATION Provider Role [...] States it was completed by Dr. Rojas circuit walker in [place]. Patient states that she has been doing [...] transmitted infections. 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 Normal [facility] ED Note - Physicianon 2020 ED [...] States it was completed by Dr. Rojas circuit walker in [place]. Patient states that she has been doing [...] transmitted infections. 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 Surgical history: section (79631089). Comments: 09/16/2017 17:09 WILLIST - Denzel NICHOLAS, Mildred X4 Tonsillectomy (300476295). TL - Tubal ligation (403292329).. Social history: Social & Psychosocial Habits Alcohol [...] smoking 2012 (more content not included)... Normal [facility] ED Patient Summaryon 021 ED Patient Summary [facility] - Emergency Department [address] [place] [address] PATIENT DISCHARGE INSTRUCTIONS Patient Information Name: TALHA BELL Age: 35 Years Date of : 1985 [facility]: [id number] Reason For Visit: Dysuria; Weakness; STD exposure; Pelvic pain; Flank pain; PELIVS PAIN, LEFT KIDNEY PAIN Arrival Time: 08/22/2020 17:41:37 Primary Care Physician: SAVANNAH RODRIGUEZ Attending Physician: Tiburcio Kennedy DO Comment: Visit Diagnosis: Diagnoses This Visit Dysuria ([id number]) Dysuria (R30.0) Flank pain (R10.9) Flank pain (559057182) Pelvic pain ([id number]) STD exposure ([id number]) Vaginal discharge (N89.8) Weakness (74304428) Prescription Information: If you have been given a prescription for narcotics, seek immediate medical attention if you have any difficulty breathing or any sudden status changes such as confusion and sleepiness. If you or anyone you know is experiencing suicidal thoughts, mental health, alcohol and/or drug addiction problems; contact the [facility] 26/11 Crisis Hotline -text 4hope to 741741. If you received any narcotics, sedation, or [...] any legal documents With: Address: When: SAVANNAH MELISSAANNABELLE [address] [place] [address] [address] [place] [address] [facility] (1) Within 3 to 5 days Comments: Please follow-up with your OFFICE CLERK in 3 to 5 days. Keep your [...] a prescription for Bactrim was sent to [facility] pharmacy for you in which you [...] also be sent to Dr. Rojas your circuit walker. Continue to monitor your symptoms and return here to the emergency department if you develop any fever, chills, worsening pain, if you develop any abdominal pain or any other worsening or concerning symptoms. Medication Information: The exam and treatment you received today in the [facility] Emergency Department were for an urgent problem and are not intended as complete care. It is important for you to follow up with a doctor, nurse practitioner, or physician?s printer assistant for ongoing care. If your symptoms [...] so we can reach you if necessary. [facility] Emergency Department has provided you with a complete list of medications post discharge. Please inform your theater set production designer/provider of your visit and for further instruction on these medications. Any specific questions regarding your chronic medications and dosages should be discussed with your primary care physician(s) and/or pharmacist. New Medications [facility]/pharmacy #[id number], [address], [place] [id number], [phone] sulfamethoxazole-trim ethoprim (Bactrim DS 800 mg-160 mg oral tablet) 1 tab(s) Oral 2 times a day. Refills: 0. Medications to Continue That Have Not Changed Other Medications (more content not included)... [facility] Extra Redon 08-22-2020 Tube Collected Yes Invalid Interpretation Code [facility] Comment on above: Performed By: #### 1 [id number], 50753870, 6189432, 5826686398, [id number] ####[facility] (DEFAULT)[address] [place] [address] 87321 UA Vukqn1fs 08-22-2020 UA Amorph. Rare [facility] Comment on above: Order Comment: Urina lysis Microscopic order added on by [employer]acht[employer] Expert Rules system. Performed By: #### 5 [id number], [id number] ####[facility] (DEFAULT)[address] [place] [address] 58352 UA Bacteria Trace [facility] Comment on above: Order Comment: Urina lysis Microscopic order added on by [employer] Expert Rules system. Performed By: #### 5 [id number], [id number] ####[facility] (DEFAULT)[address] [place], [place] [address] UA RBC 0-2 [facility] Comment on above: Order Comment: Urina lysis Microscopic order added on by [employer] Expert Rules system. Performed By: #### 5 6753625, [id number] ####[facility] (DEFAULT)[address] [place] [address] 94345 UA Squam Epi Few [facility] Comment on above: Order Comment: Urina lysis Microscopic order added on by [employer] Expert Rules system. Performed By: #### 5 [id number], [id number] ####[facility] (DEFAULT)[address] [place] [address] 99960 UA WBC 0-2 [facility] Comment on above: Order Comment: Urina lysis Microscopic order added on by [employer] Expert Rules system. Performed By: #### 5 0427562, [id number] ####[facility] (DEFAULT)[address] [place] [address] 00820 UA w Culture if Ind Standard on 08-22-2020 Breakpoint UA Normal [facility] Comment on above: Performed By: #### 5 [id number], [id number] ####[facility] (DEFAULT)[address] [place] [address] 12042 Color (U) Yellow Normal [facility] Comment on above: Performed By: #### 5 7692334, [id number] ####[facility] (DEFAULT)[address] [place] [address] Culture? Not Indicated Invalid Interpretation Code [facility] Comment on above: Performed By: #### 5 0155677, [id number] ####[facility] (DEFAULT)[address] [place] [address] 46365 Glucose (U) [Mass/Vol] Negative Normal [facility] Comment on above: Performed By: #### 5 2121617, [id number] ####[facility] (DEFAULT)[address] [place] [address] 17312 Ketones Ql (U) TRACE Normal [facility] Comment on above: Performed By: #### 5 3006901, [id number] ####[facility] (DEFAULT)[address] [place] [address] 34843 Micro? Indicated Invalid Interpretation Code [facility] Comment on above: Performed By: #### 5 0424697, [id number] ####[facility] (DEFAULT)[address] [place] [address] 48001 UA Bilirubin Negative Normal [facility] Comment on above: Performed By: #### 5 8340528, [id number] ####[facility] (DEFAULT)[address] [place] [address] 95679 UA Blood Negative Normal NEGATIVE [facility] Comment on above: Performed By: #### 5 8787643, [id number] ####[facility] (DEFAULT)[address] [place] [address] 41199 UA Clarity CLEAR Normal CLEAR [facility] Comment on above: Performed By: #### 5 7257293, [id number] ####[facility] (DEFAULT)[address] [place] [address] UA Leuk Est TRACE Abnormal NEGATIVE [facility] Comment on above: Performed By: #### 5 1925451, [id number] ####[facility] (DEFAULT)[address] [place] [address] UA Nitrite Positive Abnormal NEGATIVE [facility] Comment on above: Performed By: #### 5 8899063, [id number] ####[facility] (DEFAULT)[address] [place] [address] UA pH 7.0 Normal 5-8 [facility] Comment on above: Performed By: #### 5 0889120, [id number] ####[facility] (DEFAULT)[address] [place] [address] UA Protein Negative Normal NEGATIVE [facility] Comment on above: Performed By: #### 5 6431291, [id number] ####[facility] (DEFAULT)[address] [place] [address] UA Spec Grav 1.020 Normal 1.001-1.035 [facility] Comment on above: Performed By: #### 5 9314617, [id number] ####[facility] (DEFAULT)[address] [place] [address] UA Urobilinogen 0.2 mg/dL Normal 0.2-1.0 [facility] Comment on above: Performed By: #### 5 4832042, [id number] ####[facility] (DEFAULT)[address] [place] [address] Urine Source Clean Catch Normal [facility] Comment on above: Performed By: #### 5 8079563, [id number] ####[facility] (DEFAULT)[address] [place] [address] Wet [place].on 08-22-2020 Wet Mount. Send results to Dr. Rojas circuit walker Negative for Trichimonas vaginalis. Negative for Yeast. 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 Nucleic acid amplification tests include PCR and [...] assay. Performed At: [facility] [address] [facility] [place] [id number] Iram Calvillo [facility] Ph:[phone] Performed By: #### 6 [id number] ####[facility] (DEFAULT)[address] [place] [address] Coding Summaryon 03-01-2020 Coding Summary CODING DATE: 03/01/2020 FINAL [facility] STATUS: Home PAYOR: Commercial Insurance [...] Slade Date Saved: 03/01/2020 09:51 am Normal [facility] Vital Signs Date Time Vital Sign Value Performing Clinician Facility 03-27-2023 10:03-0500 Blood Pressure Location ELPIDIO HENSON [facility] 03-27-2023 10:03-0500 Body temperature 97.16 [degF] ELPIDIO NATIVIDAD [facility] 03-27-2023 10:03-0500 Diastolic blood pressure 84 mm[Hg] ELPIDIO NATIVIDAD [facility] 03-27-2023 10:03-0500 Heart rate 74 /min ELPIDIO HENSON [facility] 03-27-2023 10:03-0500 Systolic blood pressure 128 mm[Hg] ELPIDIO HENSON [facility] Encounters Encounter Date Encounter Type Care Provider Facility Start: 08-26-2023 End: 08-26-2023 ambulatory SUMEET VISHAL Not Available Start: 07-26-2023 ambulatory Eamon Garcia acility:[facility] Start: 07-16-2023 End: 07-17-2023 ambulatory ELPIDIO HENSON Facility:[facility] Start: 07-16-2023 End: 07-16-2023 Patient encounter procedure ELPIDIO HENSON [facility] [place] Start: 06-06-2023 End: 06-06-2023 ambulatory KATLYN MITCHELL Not Available Start: 05-28-2023 End: 05-28-2023 ambulatory KATLYN MITCHELL Not Available Start: 05-02-2023 End: 05-03-2023 ambulatory Lowell MAYS Facility[facility] Start: 05-02-2023 End: 05-02-2023 Patient encounter procedure Lowell MAYS [facility] Start: 04-23-2023 End: 04-23-2023 ambulatory SUMEET WILKESO Not Available Start: 04-18-2023 ambulatory Lowell MAYS Facility :CD:[id number] Start: 03-27-2023 End: 03-28-2023 ambulatory ELPIDIO HENSON [facility] Start: 03-27-2023 End: 03-27-2023 Patient encounter procedure ELPIDIO HENSON [facility] [place] Start: 02-04-2023 ambulatory ELPIDIO HENSON Facility :[facility] Start: 11-26-2022 End: 11-26-2022 Emergency department patient visit [facility] Start: 01-23-2022 End: 01-23-[address] LOWELL ROJAS Facility: Start: 11-30-2021 End: 11-30-2021 ambulatory MEMO WOOD Facility:[facility] Start: 06-14-2021 End: 06-14-[address] EARNESTINE HUFF Facility:[facility] Procedures Date Procedure Procedure Detail Performing Clinician Start: 05-02-2023 Transurethral cystoscopy ELPIDIO HENSON Start: 05-06-2019 Hysterectomy ELPIDIO PENG Colonoscopy ELPIDIO HENSON Hysterectomy ELPIDIO NATIVIDAD Tonsillectomy ELPIDIO HENSON Immunizations Immunization Date Immunization Notes Care Provider Liat ruiz 07-08-2002 hepatitis B vaccine, adult dosage ELPIDIO NATIVIDAD [facility] 02-06-2002 hepatitis B vaccine, adult dosage ELPIDIO NATIVIDAD [facility] 01-07-2002 hepatitis B vaccine, adult dosage ELPIDIO NATIVIDAD [facility] 01-07-2002 measles, mumps and rubella virus vaccine ELPIDIO NATIVIDAD [facility] 09-03-1988 diphtheria, tetanus toxoids and acellular pertussis vaccine ELPIDIO NATIVIDAD [facility] 09-03-1988 Hib, unspecified formulation ELPIDIO NATIVIDAD [facility] 12-13-1986 diphtheria, tetanus toxoids and acellular pertussis vaccine ELPIDIO NATIVIDAD [facility] 12-12-1985 measles, mumps and rubella virus vaccine ELPIDIO NATIVIDAD [facility] 1984 diphtheria, tetanus toxoids and acellular pertussis vaccine ELPIDIO HENSON [facility] 1984 diphtheria, tetanus toxoids and acellular pertussis vaccine ELPIDIO HENSON [facility] 1984 diphtheria, tetanus toxoids and acellular pertussis vaccine ELPIDIO HENSON [facility] Payers Date Payer Category Payer Unknown [id number] 2022 Self-pay 2022 Unknown [id number] 1984 Unknown [id number] 2.16.84 [id number] 1984 Unknown [id number] 2.16.84 0.1.948966.3.579.2.593 1984 Unknown [id number] 2.16.84 0.1.102549.3.579.2.593 1984 Unknown [id number] 2.16.8 40.1.015064.3.579.2.173 1984 Unknown [id number] 2.16.84 0.1.025478.3.579.2.1259 1984 Unknown [id number] 2.16.840 .1.305565.3.579.2.1259 1984 Unknown [id number] 2.16.8 40.1.654301.3.579.2.727 1984 Unknown [id number] 2.16.8 40.1.940545.3.579.2.727 1984 Unknown [id number] 2.16.8 40.1.429819.3.579.2.727 1984 Unknown [id number] 2.16.8 40.1.013867.3.579.2.727 1984 Unknown [id number] 2.16.84 0.1.681984.3.579.2.1259 1984 Unknown [id number] 2.16.84 0.1.099075.3.579.2.1259 1984 Unknown [id number] 2.16.84 0.1.717013.3.579.2.1259 1984 Unknown [id number] 2.16.84 0.1.698042.3.579.2.1259 1959 Unknown [id number] 1959 Unknown [id number] Unknown [id number] 2.16.8 40.1.773948.3.579.2.531 Social History Date Type Detail Facility Start: 03-27-2023 Tobacco smoking status Never [facility] Sex Assigned At Female [facility] Functional Status Date Assessment Result Facility 05-02-2023 Functional Status N/A [facility] 03-27-2023 Functional Status N/A [facility] Clinical Notes 03-22-2020 to 05-02-2023 Note Date & Type Note Facility 05-02-2023 Note [id number] [facility] 05-02-2023 Note Cystoscopy with Uret hral [...] you have a fever over 100 degrees [facility] 05-02-2023 Hospital Discharg e instructions Patient [...] Up Care 04/30/2023 10:52:47 With:ELPIDIO HENSON Address: [address] [place] [address] [facility] (1) When:6 weeks Comments:Call for followup appointment [facility] 03-27-2023 Hospital Discharg e instructions [...] including vitamins, herbs, eye drops, creams, and baam-uel-fbellyl medicines. Any problems you or family members [...] provider tells you to take them. Taking yojo-kgd-yrcapbt medicines, vitamins, herbs, and supplements. Tests You [...] Follow these instructions at home: Medicines Take uube-ggr-sfvinon and prescription medicines only as told by [...] provider. Document Revised: 01/03/2022 Document Reviewed: 12/02/2020 [employer] Patient Education 2022 [employer] 03/27/2023 10:54:11 Overactive Bladder, Adult Overactive Bladder, [...] your health care provider. General instructions Take ujlz-gjx-wceqzij and prescription medicines only as told by [...] provider. Document Revised: 01/09/2021 Document Reviewed: 01/09/2021 [employer] Patient Education 2022 [employer]. Follow Up Care 02/04/2023 08:51:15 With:NATIVIDAD LOPEZ, ELPIDIO Rodriguez, URL Address: [address] [place] [address] [phone] When: Unknown Comments:sched cysto/poss UD [facility] 02-15-2021 Note Education Materials Infectious Disease COVID-19: [...] provider. Document Revised: 04/07/2020 Document Reviewed: 04/07/2020 [employer]vier Patient Education ? 2019 [employer] COVID-19: How to Protect Yourself and Others Know how it spreads ? There is currently no vaccine to prevent coronavirus disease 2019 (COVID-19). ? The best way to prevent illness is to avoid being exposed to this virus. ? The virus is thought to spread mainly from sjeufc-fs-oubbqo. ? Between people who are in close [...] are not readily available, use a hand creative services specialist that contains at least 60% alcohol. Cover [...] at higher risk of getting very sick.www.cdc.gov/coronavirus/20 -ncov/nrpf-pskrf-vsqukrqpyhz/ bkwscj-id-nrmcie-risk.html Cover your mouth and nose with a [...] available, clean your hands with a hand creative services specialist that contains at least 60% alcohol. Clean and disinfect ? Clean AND disinfect frequently touched surfaces daily. This includes tables, doorknobs, light switches, countertops, handles, desks, phones, keyboards, toilets, faucets, and sinks. www.cdc.gov/coronavirus/2019-nc ov/rixlfrs-zlylgqg-jjfl/disinfe hdkmg-urvo-skvf.html ? If surfaces are dirty, clean them: [...] provider. Document Revised: 01/14/2020 Document Reviewed: 11/12/2019 [employer] Patient Education ? 2020 [employer]. COVID-19 Frequently Asked Questions COVID-19 (coronavirus disease) is an infection that is caused by a virus (more content not included)... [facility] 08-22-2020 Note Education Materials Obstetrics and [...] this condition includes: ? Antibiotic medicine. ? Gfdl-lgk-yxqydvm medicines to treat discomfort. ? Drinking enough [...] these instructions at home: Medicines ? Take ipuw-zfo-kvocdie and prescription medicines only as told by [...] provider. This i (more content not included)... [facility] 03-22-2020 Note Nasal swab performed without complication. Patient tolerated well. Education given. Patient verbalized understanding. [Electronically Signed on: 03/22/2020 14:52 EST] Millicent Galdamez RN [Verified on: 03/22/2020 14:52 EST] Millicent Galdamez RN [facility] Evaluation + Plan note No data available for this section [facility] Evaluation + Plan note Future Appointments Appointment Date:07/16/2023 09:00:00 AM Scheduled Provider:ELPIDIO HENSON PA-C Location:[facility] Appointment Type:URO Office Visit [facility] Hospital Discharge instructions No data available for this section [facility] Progress note No data available for this section [facility] Summary Purpose Family History No Family History Records FoundNo Family History Records FoundNo Family History Records Found No data available for this section No data available for this section No Family History Records Found No data available [...] section and content) DATE CREATED AUTHOR 02/28/2021 [facility] DATE CREATED AUTHOR AUTHOR'S ORGANIZ ATION 02/04/2022 [facility] DATE CREATED AUTHOR AUTHOR'S ORGANIZ ATION 11/26/2022 [facility] DATE CREATED AUTHOR AUTHOR'S ORGANIZ ATION 05/29/2023 [facility] EPIC DATE CREATED AUTHOR AUTHOR'S ORGANIZ ATION 07/18/2023 [facility] DATE CREATED AUTHOR AUTHOR'S ORGANIZ ATION 08/27/2023 [facility] EPIC DATE CREATED AUTHOR AUTHOR'S ORGANIZ ATION 09/13/2023 [facility] Patient Care team informatio n (unrecognized section and content) Personnel Name: Sumeet VÁSQUEZ DO Address: Address: [address] , [place], [place] [address] Personnel Name: SAVANNAH RODRIGUEZ MD Address: Address: [address] [place] [address] Personnel Name: SAVANNAH RODRIGUEZ MD Address: Address: [address] [place] [address] FOR RECORDS PERTAINING TO PATIENTS WHO ARE [...] BE BASED ON THE PRIMARY CLINICAL RECORDS. [facility] [employer] provides no warranty or guarantee of the accuracy or completeness of information in this document.
== END 2023-09-16 08:09 | disposition home or self-care (01) ==
LOC: MRI 08:08
PROVIDERS: Visit Provider Obstetrics & Gynecology
DX: R79.89 Other specified abnormal findings of blood chemistry (principal)
CPT/HCPCS: 70553

== ENCOUNTER 2023-11-05 08:19 | Outpatient (OUT) | payer BC, OTHER, SELFPAY ==
--- OUTSIDE RECORDS SUMMARY | 2023-11-01 11:26 | XMS_ITS | CCD ---
Author Organization [facility] Informat ion Partnership [facility] Care Team Providers Care Manager Workers Compensation Name Role Phone MEMO WOOD Admitting Unavailable NINA, MEMO Attending Unavailable MEMO WOOD Consulting Unavailable JENNIFER, DR SAVANNAH Underwood Primary Care Unavailable KARASIPreston, DR ETIENNE Consulting Unavailable HIESTANNABELLE, DR SAVANNAH Underwood Primary Care Unavailable KARNEFTALY, DR ETIENNE Admitting Unavailable CRYSTAL, DR ETIENNE Attending Unavailable DARIA, DR COLBY Attending Unavailable DARIA, DR COLBY Admitting Unavailable TERESO, DR REAL Mccain Consulting Unavailable AMANDAESTANNABELLE, DR SAVANNAH Underwood Primary Care Unavailable HAY, DR COLBY Consulting Unavailable TIBURCIO OROZCO Consulting Unavailable Sumeet VÁSQUEZ Primary Care Physician JENNIFER, SAVANNAH Underwood Primary Care Physician [phone] KATLYN MITCHELL Attending Unavailable SUMEET VÁSQUEZ Attending [...] levoFLOXacin; Translations: [Levaquin] Drug Allergy 3 [facility] (4 sources) Bee/Wasp/Ant venom; Translations: [Bee Stings] Propensity to adverse reactions to substance Swelling (finding) [facility] (3 sources) levoFLOXacin; Translations: [levofloxacin] Drug Allergy [facility] (1 source) levoFLOXacin Drug Allergy [facility] Repository Medications Current Medications Medication [...] day(s), # 9 tab(s), Refills(s) 0, Pharmacy: [facility]/pharmacy #[id number], 157, cm, 03/27/23 10:11:00 EST, [...] afterwards, # 2 cap(s), Refills(s) 0, Pharmacy: [facility]/pharmacy #[id number], 157, cm, 03/27/23 10:11:00 EST, [...] te Episodic/Chronic Other aftercare (1 source) 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; Translations: [OTH 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 SPINNER CURRENT DRUG THERAPY] Onset: 06-15-2021 Episodic Residual codes; unclassified (1 source) Acquired absence of both cervix and uterus; Translations: [ACQUIRED ABSENCE BOTH CERVIX AND UTERUS] Onset: 06-15-2021 Episodic Results Test Name Value Interpretation Reference Range Facility Consent for Procedure/Surger yon 05-02-2023 Consent for Procedure/Surgery [id number]# 1.00TIFF Normal [facility] Consent for Treatmenton 04-06 Consent for Treatment [id number]#1 .00TIFF Normal [facility] Inpatient Patient Summaryon 05-02-2023 Inpatient Patient Summary [place] [id number] Clinical Summary Person Information Name: TALHA DUVAL Age: 37 Years : 1985 Sex: Female PCP: SAVANNAH RODRIGUEZ MD Marital Status: Race: Other Race Ethnicity: Non- or Language: Hebrew Visit Id: Visit Reason: OVER ACTIVE BLADDER, INCOMPLETE BLADDER EMPTY Speciality: Acuity: Enc Type: Outpatient Med Service: Surgery Arrival: 05/02/2023 12:09:38 Discharge: Dispo Type: Address: [address] [place] [address] [phone] Provider Notes: Diagnosis: Problems Active Ovarian cyst [...] Follow up: With: Address: When: ELPIDIO HENSON [address] [place] [address] [phone] [facility] ([employer] Within 6 weeks Comments: Call for followup appointment Type Location [facility] Office Visit [facility] [place] [place] EU Charisma 07/16/2023 9:00 AM 07/16/2023 9:15 AM Confirmed Patient Education Information: EU - Cystoscopy with Urethral Dilation Discharge Instructions (Custom) [facility] IntraOperative Documentson 1 07-03-2022 IntraOperative Documents [id number]# 1.00TIFF [facility] Main OR Intraoperative Recor don 05-02-2023 Main OR Intraoperative Record IntraOp Document Type FTURO Summary Primary Physician: Lowell MAYS MD Finalized Date/Time: 05/02/23 13:28:39 Pt. Name: TALHA DUVAL/Sex: 1985 Female Med Rec #: [id number] Physician: Lowell MAYS MD Financial #: [id number] Pt. 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 Name: TALHA DUVAL D.O.B./Sex: 1985 Female Med Rec #: [id number] Physician: Lowell MAYS MD Financial #: [id number] Pt. Type: O Room/Bed: / Admit/Disch: 05/02/23 [...] 12:29 Jeanette Rodríguez RN 05/02/23 12:31 Normal [facility] Operative Reporton Operative Report Patient: TALHA DUVAL Age: 37 years Sex: Female : 1985 Associated Diagnoses: None Author: Lowell MAYS MD Procedure Operative Information Details: Date/ Time: 05/02/2023 13:30:00. Pre-Op Dx: Unspecified urethral stricture, female (HNG68-HA N35.92, Working, Medical), Urinary retention ([id number] R33.9, Working, Medical). Post-Op Dx: Same. Anesthesia [...] urine. The Urethra was dilated to: 30 Polish w/ sounds, This causes minimal bleeding.. Devices Implanted: None. Removal: Cystoscope is removed, The patient tolerated it well. Postoperative Information Discharge: Patient is discharged home with antibiotic coverage, Follow up arranged, Follow up with Sally Henson PA-C in about six weeks. . Normal [facility] Comment on above: Result Comment: Elec tronically Signed By: Lowell MAYS MD\.br\Date and Time Signed: 05/02/23 13:35 EST Outpatient Surgery Discharge Instructionon 05-02-2023 Outpatient Surgery Discharge Instruction [place] [id number] Patient Discharge Instructions PERSON INFORMATION Name: TALHA DUVAL Date of : 1985 Current Date: 05/02/2023 13:30:29 PHYSICIANS Admitting Physician: Lowell MAYS MD Comment: Discharge Diagnosis: TALHA DUVAL has been given the following list of follow-up instructions, prescriptions, and patient education materials: IF UNABLE TO CONTACT YOUR PHYSICIAN AND YOU FEEL IT IS AN EMERGENCY, GO TO THE NEAREST EMERGENCY ROOM OR CALL 911 Follow up: With: Address: When: ELPIDIO HENSON [address] [facility]. D RAYSHAWN Lundberg [phone] [facility] (1) Within 6 weeks Comments: Call for followup appointment Type Location [facility] Office Visit [facility] [place] [place] CARLOTTA Zafar 07/16/2023 9:00 AM 07/16/2023 9:15 [...] to serve you. Thank you for choosing [facility] Provider Letteron 04-30-2023 Provider Letter April 30, 2023 TALHA DUVAL [address] [place] [address] : 1985 To Whom It May Concern, Please excuse above patient from work. Date of Illness: From: 04/19/23 To: 05/07/23 May Return to Work On: 05/07/23 Restrictions: None Sincerely, Lian Hummel CMA/ Dr Lowell Mays MD [facility] Comment on above: Other Comment: WRONG PT! Ambulatory Visit Summaryon 1 05-27-2022 Ambulatory Visit Summary TALHA DUVAL :1985 Visit Date:03/27/2023 Ambulatory Visit Instructions Your Diagnosis Feeling of incomplete bladder emptying OAB (overactive bladder) History of kidney stones Former smoker Ovarian cyst Tests Performed Urnls Dip Stick Auto w/o Microscopy POC 72773 Your Care Team Attending Physician - ELPIDIO [...] UD Where: [address] [place] [address] [phone] Medications What How Much When Instructions Unchanged busPIRone (busPIRone 7.5 mg oral tablet) Contact prescribing physician if questions or concerns Unchanged risperidone (risperidone 0.5 mg Tab) 1 Tablets By Mouth 2 times a day Contact prescribing physician if questions or concerns Test Results Urnls Dip Stick Auto w/o Microscopy POC 65108 (03/27/2023) Bilirubin Urine Dipstick - Negative Blood Urine Dipstick - Negative Glucose Urine Dipstick - Negative Ketones Urine Dipstick - Negative Leukocytes Urine Dipstick - Negative Nitrite Urine Dipstick - Negative Protein Urine Dipstick - Negative Specific [place] Urine Dipstick - <=1.005 Urine Appearance Urine [...] including vitamins, herbs, eye drops, creams, and acjh-hxk-ppuyahl medicines. ? Any problems you or family [...] tells you to take them. ? Taking cdad-oso-ijyfrki medicines, vitamins, herbs, and supplements. Tests You may have an exam or testing, such as: ? X-rays of the bladder, urethra, or kidneys. ? CT scan of the abdomen or pelvis. ? Urine tests to check for signs of infection. (more content not included)... Normal [facility] Consultation Noteon 03-27-20 Consultation Note [id number]# 1.00TIFF Normal [facility] Formson 03-27-2023 Forms [id number]#1. 00TIFF [facility] Patient Educationon 03-27-20 Patient Education Obstetrics and [...] health care provider. General instructions ? Take pdun-gdp-bvqpmie and prescription medicines only as told by [...] monitor yo (more content not included)... 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 Sumeet Vásquez DO for urinary retention and hx of kidney stones. Last stone was passed was 2009 she thinks Never seen in our office before. CT AP wo con done 08/24/20 at [facility]. CT AP wo con and KUB done 06/14/21 at [facility]. US pelvis w/ transvaginal done 02/05/23 at [facility]. 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 Feeling of incomplete bladder emptying (R39.14: [...] tid x3days after cysto. [facility] -Double void maneuvers Ordered: Body Mass Index (BMI) documented 3008F Body Mass Index (BMI) documented 3008F Current tobacco non-user 1036F Current tobacco non-user 1036F Depression Screening Negative 3352F Depression Screening Negative 3352F E&M of New Patient Moderate 45-59 Min 56091 Influenza immunization status assessed 1030F Influenza immunization [...] Ordered: Body (more content not included)... Normal [facility] Comment on above: Result Comment: Elec tronically Signed By: ELPIDIO HENSON PA-C\.br\Date and Time Signed: 03/27/23 11:32 EST\.br\Electronically Co-Signed By: Era Villegas\.br\Date and Time Co-Signed: 03/27/23 11:16 EST PAP ACOG PANEL 2: 30 to 65on 01-29-2022 . . Normal [facility] Comment on above: Result Comment: Perf ormed at: WB Performed By: #### 4 [id number] #### [facility] [address] [place] [address] [address] Ab Sloan Age Gdln ACOG Testing 30-65 Normal [facility] Comment on above: Performed By: #### 4 [id number] #### [facility] [address] [place] [address] [address] Ab Sloan DIAGNOSIS: Comment Normal [facility] Comment on above: Result Comment: NEGA TIVE FOR INTRAEPITHELIAL LESION OR MALIGNANCY. SHIFT IN CRISTIN SUGGESTIVE OF BACTERIAL VAGINOSIS. Performed at: WB Performed By: #### 4 [id number] #### [facility] [address] [place] [address] [address] Ab Sloan HPV Aptima Negative Normal Negative [facility] Comment on above: Result Comment: This nucleic acid amplification test detects fourteen high-risk HPV types (16,18,31,33,35,39,45,51,52,56,58,59,66,68) without differentiation. Performed at: =G Performed By: #### 4 [id number] #### [facility] [address] [place] [address] [address] Ab Sloan Methodology: Comment Normal [facility] Comment on above: Result Comment: This liquid based ThinPrep(R) pap test was screened with the use of an image guided system. Performed at: WB Performed By: #### 4 [id number] #### [facility] [address] [place] [address] Dr. Ab Sloan Note: Comment Normal [facility] Comment on above: Result Comment: The Pap smear is a screening test designed to aid in the detection of premalignant and malignant conditions of the uterine cervix. It is not a diagnostic procedure and should not be used as the sole means of detecting cervical cancer. Both false-positive and false-negative reports do occur. . Performed at: WB Performed By: #### 4 [id number] #### [facility] [address] [place] [address] Dr. Ab Sloan Performed by: Comment Normal [facility] Comment on above: Result Comment: Ashley Rider, Professor Of Environmental Studies (ASCP) Performed at: WB Performed By: #### 4 [id number] #### [facility] [address] [place] [address] Dr. Ab Sloan Specimen adequacy: Comment Normal [facility] Comment on above: Result Comment: Sati sfactory for evaluation. No endocervical component is identified. Performed at: WB Performed By: #### 4 [id number] #### [facility] [address] [place] [address] [address] Ab Sloan VAGINITIS/VAGINOSIS DNA PROB [place] 01-24-2022 Betsy species Negative Normal Negative [facility] Comment on above: Performed By: #### V AGINT #### [facility] [address] [place] [address] Dr. Ab Sloan Gardnerella vaginalis Positive Abnormal Negative [facility] Comment on above: Performed By: #### V AGINT #### [facility] [address] [place] [address] [address] Ab Sloan Trichomonas vaginalis Negative Normal Negative [facility] Comment on above: Performed By: #### V AGINT #### [facility] [address] [place] [address] [address] Ab Sloan PROCALCITONINon 12-04-2021 Procalcitonin <0.02 Normal 0.00-0.08 [facility] Comment on above: Result Comment: . [...] are obtained. Performed By: #### P CTLC ####[facility] [address] [place] [address]Dr. Ab Sloan CBC AUTO DIFFon 11-30-2021 BASO # 0.0 103/ul Normal 0.0-0.1 [facility] Comment on above: Performed By: #### C BC #### [facility] [address] [place] [address] Dr. Ab Sloan Basophils/100 WBC (Bld) 0.5 % Normal 0.2-2.0 [facility] Comment on above: Performed By: #### C BC #### [facility] [address] [place] [address] Dr. Ab Sloan EO # 0.1 103/ul Normal 0.0-0.7 [facility] Comment on above: Performed By: #### C BC #### [facility] [address] [place] [address] Dr. Ab Sloan Eosinophils/100 WBC (Bld) 0.8 % Critically low 0.9-7.0 [facility] Comment on above: Performed By: #### C BC #### [facility] [address] [place] [address] Dr. Ab Sloan Erythrocyte distribution width (RBC) [Ratio] 12.2 % Normal 11.0-15.0 [facility] Comment on above: Performed By: #### C BC #### [facility] [address] [place] [address] Dr. Ab Sloan Hematocrit (Bld) [Volume fraction] 38.2 % Normal 36.0-48.0 [facility] Comment on above: Performed By: #### C BC #### [facility] [address] [place] [address] Dr. Ab Sloan Hemoglobin (Bld) [Mass/Vol] 13.1 g/dL Normal 12.0-16.0 [facility] Comment on above: Performed By: #### C BC #### [facility] [address] [place] [address] Dr. Ab Sloan IG # 0.01 10e3/ul Normal 0.00-0.03 [facility] Comment on above: Performed By: #### C BC #### [facility] [address] [place] [address] Dr. Ab Sloan IG % 0.2 % Normal 0.0-0.5 [facility] Comment on above: Performed By: #### C BC #### [facility] [address] [place] [address] Dr. Ab Sloan LYMPH # 1.9 103/ul Normal 1.2-3.8 [facility] Comment on above: Performed By: #### C BC #### [facility] [address] [place] [address] Dr. Ab Sloan Lymphocytes/100 WBC (Bld) 31.2 % Normal 20.5-60.0 [facility] Comment on above: Performed By: #### C BC #### [facility] [address] [place] [address] Dr. Ab Sloan MANUAL DIFF REQ NO Normal [facility] Comment on above: Performed By: #### C BC #### [facility] [address] [place] [address] Dr. Ab Sloan MCH (RBC) [Entitic mass] 31.0 pg Normal 26.7-34.0 [facility] Comment on above: Performed By: #### C BC #### [facility] [address] [place] [address] Dr. Ab Sloan MCHC (RBC) [Mass/Vol] 34.3 g/dL Normal 29.9-35.2 [facility] Comment on above: Performed By: #### C BC #### [facility] [address] [place] [address] Dr. Ab Sloan MCV (RBC) [Entitic vol] 90.5 fL Normal 81.0-99.0 [facility] Comment on above: Performed By: #### C BC #### [facility] [address] [place] [address] Dr. Ab Sloan MONO # 0.4 103/ul Normal 0.3-0.8 [facility] Comment on above: Performed By: #### C BC #### [facility] [address] [place] [address] Dr. Ab Sloan Monocytes/100 WBC (Bld) 6.2 % Normal 1.7-12.0 [facility] Comment on above: Performed By: #### C BC #### [facility] [address] [place] [address] Dr. Ab Sloan NEUT # 3.7 103/ul Normal 1.4-6.5 [facility] Comment on above: Performed By: #### C BC #### [facility] [address] [place] [address] Dr. Ab Sloan Neutrophils/100 WBC (Bld) 61.1 % Normal 43.0-75.0 [facility] Comment on above: Performed By: #### C BC #### [facility] [address] [place] [address] [address] Ab Sloan Platelet mean volume (Bld) [Entitic vol] 12.0 fL Normal 9.5-13.5 [facility] Comment on above: Performed By: #### C BC #### [facility] [address] [place] [address] [address] Ab Sloan PLT 198 103/ul Normal 150-450 [facility] Comment on above: Performed By: #### C BC #### [facility] [address] [place] [address] [address] Ab Sloan RBC 4.22 106/ul Normal 4.20-5.40 [facility] Comment on above: Performed By: #### C BC #### [facility] [address] [place] [address] [address] Ab Sloan WBC 6.1 103/ul Normal 4.0-11.0 [facility] Comment on above: Performed By: #### C BC #### [facility] [address] [place] [address] [address] Ab Sloan CRPon 11-30-2021 CRP [Mass/Vol] mg/L Normal <=1.0 [facility] Comment on above: Performed By: #### B MP, CRP #### [facility] [address] [place] [address] [address] Ab Sloan DRUG SCREEN RAPID (URINE)on 11-30-2021 AMP Negative Normal NEGATIVE [facility] Comment on above: Performed By: #### D TULIO, ERUR ####[facility] [address] [place] [id number]. Ab Sloan BAR Negative Normal NEGATIVE [facility] Comment on above: Performed By: #### D TULIO, ERUR ####[facility] [address] [place] [address]DrJasbir Sloan BUP Negative Normal NEGATIVE [facility] Comment on above: Performed By: #### D TULIO ERUR ####[facility] [address] [place] [address]Dr. Ab Sloan BZO Negative Normal NEGATIVE [facility] Comment on above: Performed By: #### Rosi ANTUNEZ ERUR ####[facility] [address] [place], [place] [address]Dr. Ab Sloan LESTER Negative Normal NEGATIVE [facility] Comment on above: Performed By: #### Rosi ANTUNEZ ERUR ####[facility] [address] [place], [place] [address]Dr. Ab Sloan CUT-OFFS SEE BELOW Normal [facility] Comment on above: Result Comment: [...] 300 ng/mL Performed By: #### KB MASCORROR ####[facility] [address] [place], [place] [address]Dr. Ab Sloan DRUG CUT HEADER DRUG CLASS TEST SYSTEM CUT-OFF CONCENTRATIONS ARE FOLLOWS: Normal [facility] Comment on above: Performed By: #### Rosi ANTUNEZ ERUR ####[facility] [address] [place], [place] [address]Dr. Ab Sloan mAMP Negative Normal NEGATIVE [facility] Comment on above: Performed By: #### KB MASCORROR ####[facility] [address] [place], [place] [address]Dr. Ab Sloan MTD Negative Normal NEGATIVE [facility] Comment on above: Performed By: #### KB MASCORROR ####[facility] [address] [place], [place] [address]Dr. Yilan Sloan OPI Negative Normal NEGATIVE [facility] Comment on above: Performed By: #### D TULIO, ERUR ####[facility] [address] [place] [address]Dr. Yierin Sloan OXY Negative Normal NEGATIVE [facility] Comment on above: Performed By: #### D TULIO, ERUR ####[facility] [address] [place] [address]Dr. Ab Sloan PCP Negative Normal NEGATIVE [facility] Comment on above: Performed By: #### Rosi ANTUNEZ, ERUR ####[facility] [address] [place] [address]Dr. Ab Sloan PPX Negative Normal NEGATIVE [facility] Comment on above: Performed By: #### Rosi ANTUNEZ, ERUR ####[facility] [address] [place] [address]Dr. Ab Sloan TCA Negative Normal NEGATIVE [facility] Comment on above: Performed By: #### Rosi ANTUNEZ, ERUR ####[facility] [address] [place], [place] [address]Dr. Ab Sloan THC Negative Normal NEGATIVE [facility] Comment on above: Performed By: #### Rosi ANTUNEZ, ERUR ####[facility] [address] [place], [place] [address]Dr. Ab Sloan ER URINE PROFILEon 2 Bilirubin Ql (U) Negative Normal NEGATIVE [facility] Comment on above: Performed By: #### Rosi ANTUNEZ, ERUR ####[facility] [address] [place] [address]Dr. Ab Sloan Clarity (U) CLEAR Normal CLEAR [facility] Comment on above: Performed By: #### Rosi ANTUNEZ, ERUR ####[facility] [address] [place], [place] [address]Dr. Ab Sloan Color (U) LT. YELLOW Normal YELLOW [facility] Comment on above: Performed By: #### Rosi ANTUNEZ, ERUR ####[facility] [address] [place] [address]Dr. Ab QUILESAHD A micrscopic examination will be performed if indicated. Normal [facility] Comment on above: Performed By: #### Rosi ANTUENZ, ERUR ####[facility] [address] [place] [address]Dr. Ab Sloan Glucose Ql (U) Negative Normal NEGATIVE [facility] Comment on above: Performed By: #### Rosi ANTUNEZ, ERUR ####[facility] [address] [place] [address]Dr. Ab Sloan Hemoglobin Ql (U) Negative Normal NEGATIVE [facility] Comment on above: Performed By: #### Rosi ANTUNEZ, ERUR ####[facility] [address] [place], [place] [address]Dr. Ab Sloan Ketones Ql (U) Negative Normal NEGATIVE [facility] Comment on above: Performed By: #### Rosi ANTUNEZ, ERUR ####[facility] [address] [place], [place] [address]Dr. Ab Sloan LEUKOCYTES Negative Normal NEGATIVE [facility] Comment on above: Performed By: #### Rosi ANTUNEZ, ERUR ####[facility] [address] [place], [place] [address]Dr. Ab Sloan Nitrite Ql (U) Negative Normal NEGATIVE [facility] Comment on above: Performed By: #### Rosi ANTUNEZ, ERUR ####[facility] [address] [place], [place] [address]Dr. Ab Sloan pH (U) 6.0 [pH] Normal 5-9 [facility] Comment on above: Performed By: #### Rosi ANTUNEZ, ERUR ####[facility] [address] [place], [place] [address]Dr. Ab Sloan SPEC GRAVITY 1.020 Normal 1.005-<=1.025 [facility] [facility] Comment on above: Performed By: #### Rosi ANTUNEZ, ERUR ####[facility] [address] [address]Dr. Babitaerin Sloan UA PROTEIN Negative Normal NEGATIVE/ TRACE [facility] Comment on above: Performed By: #### Rosi ANTUNEZ, ERUR ####[facility] [address] [place], [place] [address]CmJasbir Sloan UR MICRO IND NOT INDICATED Normal [facility] Comment on above: Performed By: #### D TULIO, ERUR ####[facility] [address] [place], [place] [address]SmJasbir Sloan Urobilinogen Qn (U) 0.2 {Lamonte'U}/dL Normal 0.2 - 1. 0 [facility] Comment on above: Performed By: #### D TULIO, ERUR ####[facility] [address] [place] [id number] Sloan PROF CHEM 8 (BAS METB)on Anion gap [Moles/Vol] 11.6 mmol/L Normal [facility] Comment on above: Performed By: #### B MP, CRP #### [facility] [address] [address] [address] Ab Sloan Calcium [Mass/Vol] 8.8 mg/dL Normal 8.5-10.1 [facility] Comment on above: Performed By: #### B MP, CRP #### [facility] [address] [address] [address] Ab Sloan Chloride [Moles/Vol] 104 mmol/L Normal 98-107 [facility] Comment on above: Performed By: #### B MP, CRP #### [facility] [address] [address] [address] Ab Sloan CO2 [Moles/Vol] 26.9 mmol/L Normal 21.0-32.0 [facility] Comment on above: Performed By: #### B MP, CRP #### [facility] [address] [address] [address] Ab Sloan Creatinine [Mass/Vol] 0.91 mg/dL Normal 0.55-1.02 [facility] Comment on above: Performed By: #### B MP, CRP #### [facility] [address] [address] [address] Ab Sloan EGFR-AF VENEZUELAN >60 Normal >=60 [facility] Comment on above: Performed By: #### B MP, CRP #### [facility] [address] [address] [address] Ab Sloan EGFR-NON AF VENEZUELAN >60 Normal >=60 [facility] Comment on above: Performed By: #### B MP, CRP #### [facility] [address] [address] [address] Ab Sloan Glucose [Mass/Vol] 105 mg/dL Normal 74-106 [facility] Comment on above: Performed By: #### B MP, CRP #### [facility] [address] [address] [address] Ab Sloan Potassium [Moles/Vol] 3.5 mmol/L Normal 3.5-5.1 [facility] Comment on above: Performed By: #### B MP, CRP #### [facility] [address] [address] [address] Ab Sloan Sodium [Moles/Vol] 139 mmol/L Normal 136-145 [facility] Comment on above: Performed By: #### B MP, CRP #### [facility] [address] [address] [address] Ab Sloan Urea nitrogen [Mass/Vol] 14.0 mg/dL Normal 7.0-18.0 [facility] Comment on above: Performed By: #### B MP, CRP #### [facility] [address] [address] [address] Ab Sloan Urea nitrogen/Creatinine [Mass ratio] 15.4 mg/mg Normal [facility] Comment on above: Performed By: #### B MP, CRP #### [facility] [address] [address] [address] Ab Sloan CBC AUTO DIFFon 06-14-2021 BASO # 0.0 103/ul Normal 0.0-0.1 [facility] Comment on above: Performed By: #### C BC #### [facility] [address] [address] [address] Ab Sloan Basophils/100 WBC (Bld) 0.6 % Normal 0.2-2.0 [facility] Comment on above: Performed By: #### C BC #### [facility] [address] [place] [address] Dr. Ab Sloan EO # 0.2 103/ul Normal 0.0-0.7 [facility] Comment on above: Performed By: #### C BC #### [facility] [address] [place] [address] Dr. Ab Sloan Eosinophils/100 WBC (Bld) 3.1 % Normal 0.9-7.0 [facility] Comment on above: Performed By: #### C BC #### [facility] [address] [place] [address] Dr. Ab Sloan Erythrocyte distribution width (RBC) [Ratio] 12.7 % Normal 11.0-15.0 [facility] Comment on above: Performed By: #### C BC #### [facility] [address] [place] [address] Dr. Ab Sloan Hematocrit (Bld) [Volume fraction] 36.9 % Normal 36.0-48.0 [facility] Comment on above: Performed By: #### C BC #### [facility] [address] [place] [address] Dr. Ab Sloan Hemoglobin (Bld) [Mass/Vol] 12.1 g/dL Normal 12.0-16.0 [facility] Comment on above: Performed By: #### C BC #### [facility] [address] [place] [address] Dr. Ab Sloan IG # 0.01 10e3/ul Normal 0.00-0.03 [facility] Comment on above: Performed By: #### C BC #### [facility] [address] [place] [address] Dr. Ab Sloan IG % 0.2 % Normal 0.0-0.5 [facility] Comment on above: Performed By: #### C BC #### [facility] [address] [place] [address] Dr. Ab Sloan LYMPH # 2.1 103/ul Normal 1.2-3.8 [facility] Comment on above: Performed By: #### C BC #### [facility] [address] [place] [address] Dr. Ab Sloan Lymphocytes/100 WBC (Bld) 40.2 % Normal 20.5-60.0 [facility] Comment on above: Performed By: #### C BC #### [facility] [address] [place] [address] Dr. Ab Sloan MANUAL DIFF REQ NO Normal [facility] Comment on above: Performed By: #### C BC #### [facility] [address] [place] [address] Dr. Ab Sloan MCH (RBC) [Entitic mass] 30.0 pg Normal 26.7-34.0 [facility] Comment on above: Performed By: #### C BC #### [facility] [address] [place] [address] Dr. Ab Sloan MCHC (RBC) [Mass/Vol] 32.8 g/dL Normal 29.9-35.2 [facility] Comment on above: Performed By: #### C BC #### [facility] [address] [place] [address] Dr. Ab Sloan MCV (RBC) [Entitic vol] 91.6 fL Normal 81.0-99.0 [facility] Comment on above: Performed By: #### C BC #### [facility] [address] [place] [address] Dr. Ab Sloan MONO # 0.4 103/ul Normal 0.3-0.8 [facility] Comment on above: Performed By: #### C BC #### [facility] [address] [place] [address] Dr. Ab Sloan Monocytes/100 WBC (Bld) 7.5 % Normal 1.7-12.0 [facility] Comment on above: Performed By: #### C BC #### [facility] [address] [place] [address] Dr. Ab Sloan NEUT # 2.5 103/ul Normal 1.4-6.5 [facility] Comment on above: Performed By: #### C BC #### [facility] [address] [address] [address] Ab Sloan Neutrophils/100 WBC (Bld) 48.4 % Normal 43.0-75.0 [facility] Comment on above: Performed By: #### C BC #### [facility] [address] [address] [address] Ab Sloan Platelet mean volume (Bld) [Entitic vol] 11.1 fL Normal 9.5-13.5 [facility] Comment on above: Performed By: #### C BC #### [facility] [address] [address] [address] Ab Sloan PLT 186 103/ul Normal 150-450 [facility] Comment on above: Performed By: #### C BC #### [facility] [address] [place] [address] Dr. Ab Sloan RBC 4.03 106/ul Critically low 4.20-5.40 [facility] Comment on above: Performed By: #### C BC #### [facility] [address] [place] [address] Dr. Ab Sloan WBC 5.2 103/ul Normal 4.0-11.0 [facility] Comment on above: Performed By: #### C BC #### [facility] [address] [place] [address] ABD/PELVIS WO CONon [...] TIBURCIO OROZCO Date: 2021-06-14 10:26 Normal [facility] ER URINE PROFILEon 2 Bilirubin Ql (U) Negative Normal NEGATIVE [facility] Comment on above: Performed By: #### E RUR #### [facility] [address] [place] [address] Dr. Ab Sloan Clarity (U) CLEAR Normal CLEAR [facility] Comment on above: Performed By: #### E RUR #### [facility] [address] [place] [address] Dr. Ab Sloan Color (U) YELLOW Normal YELLOW [facility] Comment on above: Performed By: #### E RUR #### [facility] [address] [place] [address] Dr. Ab MARCUM A micrscopic examination will be performed if indicated. Normal [facility] Comment on above: Performed By: #### E RUR #### [facility] [address] [place] [address] Dr. Ab Sloan Glucose Ql (U) Negative Normal NEGATIVE [facility] Comment on above: Performed By: #### E RUR #### [facility] [address] [place] [address] Dr. Ab Sloan Hemoglobin Ql (U) Negative Normal NEGATIVE [facility] Comment on above: Performed By: #### E RUR #### [facility] [address] [place] [address] Dr. Ab Sloan Ketones Ql (U) Negative Normal NEGATIVE [facility] Comment on above: Performed By: #### E RUR #### [facility] [address] [place] [address] Dr. Ab Sloan LEUKOCYTES Negative Normal NEGATIVE [facility] Comment on above: Performed By: #### E RUR #### [facility] [address] [place] [address] Dr. Ab Sloan Nitrite Ql (U) Negative Normal NEGATIVE [facility] Comment on above: Performed By: #### E RUR #### [facility] [address] [place] [address] Dr. Ab Sloan pH (U) 6.0 [pH] Normal 5-9 [facility] Comment on above: Performed By: #### E RUR #### [facility] [address] [place] [address] Dr. Ab Sloan SPEC GRAVITY >=1.030 Abnormal 1.005-<=1.025 [facility] Comment on above: Performed By: #### E RUR #### [facility] [address] [place] [address] Dr. Ab Sloan UA PROTEIN Negative Normal NEGATIVE/ TRACE [facility] Comment on above: Performed By: #### E RUR #### [facility] [address] [place] [address] Dr. Ab Sloan UR MICRO IND NOT INDICATED Normal [facility] Comment on above: Performed By: #### E RUR #### [facility] [address] [place] [address] Dr. Ab Sloan Urobilinogen Qn (U) 0.2 {Lamonte'U}/dL Normal 0.2 - 1. 0 [facility] Comment on above: Performed By: #### E RUR #### [facility] [address] [place] [address] Dr. Ab Sloan PROF CHEM 8 (BAS METB)on Anion gap [Moles/Vol] 10.3 mmol/L Normal [facility] Comment on above: Performed By: #### B MP #### [facility] [address] [place] [address] Dr. Ab Sloan Calcium [Mass/Vol] 8.8 mg/dL Normal 8.4-10.2 [facility] Comment on above: Performed By: #### B MP #### [facility] [address] [address] [address] Ab Sloan Chloride [Moles/Vol] 104 mmol/L Normal 98-107 [facility] Comment on above: Performed By: #### B MP #### [facility] [address] [address] [address] Ab Sloan CO2 [Moles/Vol] 28.8 mmol/L Normal 22.0-30.0 [facility] Comment on above: Performed By: #### B MP #### [facility] [address] [place] [address] Dr. Ab Sloan Creatinine [Mass/Vol] 0.79 mg/dL Normal 0.52-1.04 [facility] Comment on above: Performed By: #### B MP #### [facility] [address] [place] [address] Dr. Ab Sloan EGFR-AF VENEZUELAN >60 Normal >=60 [facility] Comment on above: Performed By: #### B MP #### [facility] [address] [place] [address] Dr. Ab Sloan EGFR-NON AF VENEZUELAN >60 Normal >=60 [facility] Comment on above: Performed By: #### B MP #### [facility] [address] [place] [address] Dr. Ab Sloan Glucose [Mass/Vol] 93 mg/dL Normal 74-106 [facility] Comment on above: Performed By: #### B MP #### [facility] [address] [address] [address] Ab Sloan Potassium [Moles/Vol] 4.1 mmol/L Normal 3.4-5.0 [facility] Comment on above: Performed By: #### B MP #### [facility] [address] [place] [address] Dr. bA Sloan Sodium [Moles/Vol] 139 mmol/L Normal 137-145 [facility] Comment on above: Performed By: #### B MP #### [facility] [address] [place], [place] [address] Dr. Ab Sloan Urea nitrogen [Mass/Vol] 13.0 mg/dL Normal 7.0-17.0 [facility] Comment on above: Performed By: #### B MP #### [facility] [address] [place], [place] [address] Dr. Ab Sloan Urea nitrogen/Creatinine [Mass ratio] 16.5 mg/mg Normal [facility] Comment on above: Performed By: #### B MP #### [facility] [address] [place], [place] [address] Dr. Ab Sloan XR KUB 1 VIEWon [...] by: REAL RIDER Date: 2021-06-14 09:08 Normal [facility] Coding Queryon 02-25-2021 SARS-CoV-2 (COVID-19) RNA TERESE+probe Ql (Unsp spec) Can you please review the patient's COVID results and revise the diagnosis if you feel appropriate? Thanks. [Electronically Signed on: 02/27/2021 18:06 EDT] SHOLA HONG [Verified on: 02/27/2021 18:06 EDT] SHOLA HONG [Transcribed on: 02/25/2021 13:31 EDT] [facility] Coding Summaryon 02-25-2021 Coding Summary HTMLBase 64 WtlcckrbZEl2nYp+PGhlY WQ+XN4SKEMsA06rdEFijI 2EQ3fLFW2IXFXFHJUFFJ5 JJM7bqPF5HErrA9SetgOw PqiqyRCqQJ44WIh2BDF1i EjqMSmwqX2oyOYnZ4r4Jz EhYM23mZ49ZAqiZJNbSpG 3LjZpbjsgbWFy Z4ddZdZvwZIjCfp+PHRhY mxlIHdpZHRoPScxMDAlJy OtfOzcCV5sIh5kWUMxTGW vbGxhcHNlOiBj j9avXMXjRTblGG3uhOuvT 0RfyBO7VUBgi4h7Jp81cW I+GKWpYEP3rPiaCVeom18 5UfIps8ixLVP4 jTZeRZsePDN9Z02zb2E7R TOxNEDjXDG5nRP4xI8wwL wrwtxjT5QlzGXrKlF2EWF 6gEBjvX6xbMtq swbjwW2rBut+G56TIL2HZ EERBQ3DBax7O0IpCtokpI I+PH43NUVoNT31bYZrvNG vq5egfCq7DdHz RZDvZKG0wEanVYauj8SuS RPhT09fuKGcj6Y4GEXdfK xpwCVzQwSwwCL5sV3cHWi qhubbr8ayqelb Rgbbq6pxxl63vM09Z78cF IuvHZYoRSR5DAJlKLVqaH vflk9bqX6kKb5+NOhif1o yq6bigBr3QxKw BENbijNymPtnBTQ5c7FkK v61Z1ZnpKdfi8LiKze0jg 32aUMga7B0gGU4MVhoQGK dyW4dDUorOuI8 APAoSbRdtH16mYBwBWevK k4qbJeafNgrUP6jFIRcae yuZTSmsX0lCTUhxRFyzRw hQF1uBLNqzwiw d189BnYnXGP7HCGxrCPpA 8IxsF6fBqHbLBXdUJKlM6 GhtKLwJHcgH001MMawPtS 9ZTTlnhGbZ4Ko YTItuGiyOdQ3c2K7Bs9Pr 4ItwvfnGNP0SZleWGTrRh VsRxDmExB1M4QgDrs1XMJ kzKkqCU2eC7Bl GDBqlnjjehvnlVD5AWEeJ SXjpQ87rETkJAhdMs3lk1 J3b020QBEaRRHthS24Qq4 udDogMTBwdCBU iH4xzfvca9vkqnwuDtImU OJdWSy4ZWa7RAYhgDbxEx SmWYJ9CqB5QUM5fELtsG2 rnBccrnrbqK4y Oyc+I08lyW4iDSX3IHQ7u prtFLFpqoVxPV91LF88P0 RyPjwvdGFibGU+PGRpdiB taQfgJE0yLlFl n3gnp9MlAWmlJ3RpUWEyS PigBof9FRWrJKE7nYN4bY 4vOHXcWIihm0R2jQW9S7U gttByxs2pb7kw HUUcBKctH50gcZWyc7E6H CUrfKX4ZGSebIjhTzPyyY 93Oyc+SATnjIeru1EcQxv ah3qbc6fwmSu0 VwUdQOWlnkTxsDprBII1h 9MfGu44K88vJEvnFIAhQU FfBVHnROCiaTygyb9dbU7 wIi8+PGNvbCB3 eDW5aF7bTRGfLjY4OEgiN 368BcUlyHYwNxvno6qnz1 jqhVg0RrPeCMTtvdGkgEk iIMT8y3MvRi27 A04sDWnpRELlOANiCTLdR YScsRrhwa5peB6jSl6+PC 8ao9yjug09yH45gLB+PHR qVMM7zRjeTIpw IUHsiS9dRBodYmS2VDKfG fWgyX63dOAvMNtmMh6xfB hioJejRK3eCKVezwfbu14 1HzZlp6lpYAJv sAApVRmaNHN8C99ix5G8X UZjEAUzMLC3bZI9tR3bpK lnbjogbGVmdDsgdmVydGl xVFjhGQvnK017 IHRvcDsnPlBhdGllbnQgT lZgTGk8Z0CaPip2HACsgY phJY3hmVIrCSttVp1knZm fhOmfMD7mCCLa kbbdw418LtJul2kcQQCue LCxYNwlUSU8M51ds3I2LV OeDNWtROQ9jSV6mF2qrRh nbjogbGVmdDsg rmDueWqbFThgKEueM651G HRvcDsnPkJpcnRoIERhdG M9OV05NK65sKScn5F4kQF 1K6NaKVIneehe lvnjmVG3XERyUPIyiJ90C s5aiNtvSp6qDNHfVMC8JU QzlKReH7OvhH0mIxXdEZZ nTZFvN4PppXFg QGatR588MXrkLkY5XMDwl fVcA9CcGUMwlIlpKaT7o7 Y8Vw0IZ2H5XI94UI91lVR ot2U0sCV6P5Tw UAWrzdwykjqeeAN9UVPjZ HYxiH82Xu6lxEeqHu9kSH MvQNZ1RIBoiPZiR6EaiH5 yOiAjMDAwMDAw C2RahKGtZDwzU370ANoxN gO3VFZpauKeQ9TqFGMqrG wgEqI0h5F2Il2YMYu8MN3 1CH76sDRwb3H6 oNV2P9SsHQBrtpbhnoxxp YM7LUDxDNYosT99Kq2ryW sqJd7eAIWhJDC8BLBwlKF sZ4AokI0iNvWp UXEmZMMgO3WqkSBmQUacL 245QSdgWvE6WHHnegMmU1 FaIPPatTlyQnR7e1Z5Cl9 JRALwIV54LHM4 fMW8BY02TX82V6OsXfqzg GFibGU+PHRhYmxlIHdpZH RoPScxMDAlJyBzdHlsZT0 lQb2dOUJsJQGy iQlsvHNaLfLxq5hxUTBtG NqgZH9ocVhlC8QnrOI2RA Wgj1t2Dq49T69rE8ZfgOP +YIHctVH1rHT6 pR3xQaUjRxM5ZBwoC655L qPqdUDnSxzxj1shb6fucB c4LuB2LEDxyhDouCegOAF 4d0VyBv30O58n IHdpZHRoPSIxNSUiIHZhb Wodym0ijV0lAk0+PGNvbC C1iUG2aR3sUuFaHuE9AIz mD239GpMozXKp Czmlj0rlg2ltnLi8JrEuJ ZBhyfZksHhwHPT4t3BnQc 81R3XqmQyop5FzMgc4xf3 3eHBtd4V0nQP1 W0YjIZQdmwitcZMvzLtmR O6mKZUbeevpWVKiaJ3nJT UfY8o1MpBuArW5LGdlP3G yygA8PWLatCAt ATpqTMK7W11er7H1OUAqG IDwEWB4eEN4gC7poMzbsi ogbGVmdDsgdmVydGljYWw sMMvhU641SBUt oUghWFEdjK1qIXNpmZOel JpeTP0wTBWspzqkEgjQYU wsIFNIQVdOVEUgTUFSSUU 2S1IkKbj1USXo uLkuVY7ueASsMYdzTk0wb WlofPvuIO1iILEghpdiOY EiaT9uOFAiuONqzMfsTO1 eQEHsvzqej397 BzWfYFS0DWAnpJDmY4Zsr E5bJwCqOFOhGIVvX9EyvA ZtSNqgV005RLwyBjI2DQZ qhpYhV8NzKKYm pYhsZtP4z3U2Fn7iUP0zH x0yKZg0AW17DG72dRBvl4 T9aYG5O4CbMIHavwwkzll jdET2NKVfJWAo kJ24tGKxEZmxOo3ct0B1d 278CJEqWTHapX72Tb9fxJ gsBEYqsPCEnH8mgcbbp8b vcjogIzAwMDAw HBn4DWs5DXRxsBilEtOfO II1NgV0UDP4rSPdbY3clG wpblyliF6aBcl+MzYgWWV gzfB7O0GzSth4 ZBRtnTzkKQ7wcQFpVDamY a1veFjpuZmnDV7iSMVgxt nfPSRqcR0kQLSxqZOpiFk pJO0pHDNxccna d719VtWfMXX5COTunJWwQ 5CpjR0mHqRjSAHoUEVuB6 KdwCTzPYhhW812MFuqBeJ 8MVZmkzVaY3Cq DBFdpUzyQvO3l4E6Pv3NK F5DXCA9N9FmHep9NKNcuX fuZY6ooMOoZYipHo5aeDa qvIogOX0qHDFa qupvBFNrwD9pMNZivYRqh UgeQT3kBUYjdkwmu659Mj UwPJI3EDHdzDZdU5NkrS6 yOiAjMDAwMDAw H1NwwCOqLVcwH184KVxmL pE2TCBghlAzO0MnQCBjuB clMqG7n6I6Dp0ETZswsUX +PI15pr08W5Rh KkwrWio1LDIxZAS8cZT5e N0iAEBhVLprl3J0eZB4K7 OrqcWtuk3zv4xrXGQpPFf kC80btTAyx8Y2 KJIgeNV3OONheAecYcUha G93Oyc+DXUwdEifx6WsYv nin5ggc9bzwPd2EhIrYAQ gdmFsaWduPSJ0 o4MeCm55E84wWYnqLWWmO XZpURXsOUDihAtaho3auY 9wIi8+ERKsyEP1yZD4qP4 xDqPbPcJ1INhp T069BhKjtAJtMglvy3xuu 1slsZh4OxWaVVModjIllX vfTRN8r6CaJz76F2NzgLh al1MvTah7tt92 zKMzq1S6fTE4I2FzVCBnm wzvfHDpeEmkRP5cUPWtoe boSEEtoZ0nHNKgD1a0GiP gAiG8WCabB8Dk aqO6UQDxkLNeQFGupOBSt D1iofxhg0cgcquxBgSeLE RqDAm3SUx6OARleQdvLqI hDCN6DxW6XYC3 iXXwvM3kpZdkkmjxjK2vT yc+QZx3u5aayUAnQE3eaK U4EU09KD61bHPwp3D2jKE 9A5UkVNSuxusv rnwgmVA3PUNjJDUppI90G x3drLvrYn8jDZNrJHJ1NR XhpSSnP3UeiF1zOsDwZVF jBLMdV5SkzWSv IJqcO506ZGikTbY4JSMem xJqR3LdRFHbnDmsVaZ8n6 C7Bx7SMY12SG97GA36oCW gb0Z4aPY1Q0Vc TZWstjnrkltveQF6CFAwY BAgdB69Em8iiChpDq0vQB EzCUR7RMVpkFHvG5SfmB4 yOiAjMDAwMDAw F4PppUFuKFinZ635JTorR pY0IBImasItA8NwFSSdfO svWrG6t0C0He4RZd56PH7 8QH45kOKio1O9 cLE4Q8FgHICpnrhmiosvq DN3GYMfHGZcjI45Wz9zlM huXj5aXPBqNCU3GIRodST xS3FlsA3oUvLp LEWrAFAiZ8YkxSUpIFqcT 847YLyeZeT0RDNgnrXxJ0 CwIBOfbBiaBvL4c6S4Aj2 CAWhaztb3Y7Ma PjwvdHI+PR93PQUzQG05z CSmbQFrf7inqSz6ViKjUR OxNNJ2zQanVLhwx8FwSTO dR65efKJwz1Q4 IGN (more content not included)... [facility] Coding Summary HTMLBase 64 SffqbvicIUn0qQe+PGhlY WQ+WZ6LAMHjK97smWEbdO 5OL5gKRT6ILAWCYOUKRJ7 AOI1biXZ8COveH5UejjJb SobosUFgEJ35LFm6ZGR6q MfzTEtboK0ldPPlP1e6Un UdXB78qX46CZfbEJAxGmP 3LjZpbjsgbWFy H7giXdRnmNOnZwy+PHRhY mxlIHdpZHRoPScxMDAlJy QasHfuIS5hCs8bRKKvSEU vbGxhcHNlOiBj y4ycHCZkNHlwPR8byKwoN 0BcbBC4CHYfk7z2Yq67hD I+FFTnWED2qJhjNQyao97 6GsIql0uuCTO1 hMOcHJrbYCO2Z97ce6C1D TXmYFEgNDP1cHI7xR0bsH fjhlkeY9CcwWClJlN0AZA 2lLRnhM9hePfa hxminR5sHzk+K56WVB0MO AFDJX2QFzy3Y0WtDwpsrB I+KX61ZGYgIF51tCOvcIV pq0ixpWc2MsKi YRDvAHY7wLjbIPzoc8QbU CGlT38yvZJwy8I2QZCgvN sokOGmUrRcsNM8yO8xHUy mzeaec3vxvagm Tyicv5eifq01fV52M17uX XlnRVCqJCJ5ZEXgQWIrsN xuof6pnJ4oRl2+JUaax1j om0vqkQz1BcDa EXYbblBgeTydYJY0d1NmQ q21M9MbyGdae4EbEyp4dm 03vBDdv3F2hZA9THxiENW chB2sPRkbVdS7 YSJcOwHztA77vQGgIOreE p3rzUoeoUtuQG2aKUMasb yuBTFqaX1wJNIxqHWquEy xIM3aJDPsmkin a527NwEwVMC4RMWepBOrX 6ByhN1wGiKhTCJkNHGfN0 TagBKrITuzD671JHkqNuZ 0NRUvwfRnB1Ns KNTrxXmvCsH7d4X3Qn4Mq 4BipdlySGZ8NUzxZHPfYc OkCoDrFwT6F8FrJrk2NHR iqFjfMP6oS2Fr KVOyyhxnmulgzFU8YRMrC KLxdR77zANsEIrzHf8fq0 P2e945BFZcPQTtbR44Va0 udDogMTBwdCBU aK1mfyiwa0lzvpmjTpQhO SMfSBx1ARj4IGKebYusJw RhVWZ4UvK7VFC1eVYgkO7 hdRbhnsrxeU8r Oyc+P61ryB9lVCJ5NDE8w uwvCHDvrdXiJR33AR97F2 RyPjwvdGFibGU+PGRpdiB yeGlbVS6bRuJr p2hbl9GvPJzyH7IgJSUdK JanOkc2TGDdZXV5oQD4dI 5wLWQrZIkdq1W3aRA3R9K tbzGezr5qz9qa UIWhFHrlV00jnSFjo1V9H BSxyEM9CTQswNfsFnBztC 93Oyc+QOJzlNgfi1QkPxl tf5mie3cuaIw6 StOjTICmroFkqRmxYDI6i 3GdKj47D90aVEkgIKXwMC IcPPQoEQIpcHsplv4qsH9 wIi8+PGNvbCB3 dAW3pS9lTCNbDbO7KZmtY 778TrEuuMXqNxfqx5xic1 cuwCo8OhLqEWRzacJgtNc uWZR2o2SgMh05 E76eWDmeVYHdFXUiGWFjS EJhqKcsov3zdZ8hQf0+PC 8he1wcck28bW26cCG+PHR jYBF6pYuhTTps CYHipA1mXNtqSdV2TBXaX aNcqU55cPSgNWwqAk3gnW gdoUvcYS0oSDFuhhubr46 8McUbe9xlVXZs gVQaDMujUQO5Q00yp1G0K CPbDWJzMKE7fPS4yG9ytT lnbjogbGVmdDsgdmVydGl sTWvuWYawO291 IHRvcDsnPlBhdGllbnQgT cFiDLe8R7VvGcu7BEQtwR nlHM0qiKVtNJijVh9rcXn nmCshHB8jGFFp jtxqd568JySzs9fcETAre HZmKNuyMZD0S70vp0V9LM LmOBYpNLP0wDY4gV6kvWd nbjogbGVmdDsg iwVfhXfzYMmkKCahA305P HRvcDsnPkJpcnRoIERhdG G3BR23ND04nIQdl2U5dSZ 2M6XyXSCaznoz nlhagGU2WFNnXYHkiW58K x3ygHmoOx2kMQVzNBU7ZG EvvKNoN0YvqZ7qIvBeVHD nOERdD8CvnKTd WOyvC271VBubVrQ2UUYqo aVnK9AiGILhzDqjAaF0v9 J7Vn7MW8C3RC26MN55uOV pr0H4oWM6A3So TUNwtjfwqpymdNW9WNPnG ZWcoZ66Vw1aeYtbFd1gIC DgJXW5GHLtuYMiS0LhjG4 yOiAjMDAwMDAw J9SnhJDkXGqfX436RGdjF fB9EWLsciWvJ5TiRRGjuR hpRdN9b0H5Sy8DDTt7NJ3 8DC10kZUyw4S8 mRF9X6VuKMOehnwhdzzsx KO7HNZsIDUilR27Df3akI ubHh9lZRIzZDH5JRGrrFO fX7MlmQ8sFiXj GXVlTUOwO1MntSRoALicW 740ZYypTzM4ODEnzlQlO3 AmDDXnzSjgZuY2n1C1Ek5 MUXJoQQ68VIB7 bEI7FG32IQ49A3YwGiaul GFibGU+PHRhYmxlIHdpZH RoPScxMDAlJyBzdHlsZT0 jLf4tHXDpAZVe aXtqbKEgEkBwi0twHJCaP TueLV1qkHznC1QyfPI0JJ Mtq0t7Wz93N31sU3RkbBX +QCHfpOV2zSW2 lR2qHpFbChG0BXhbC292H wIqgRMuKhecq1cyr0zlcF y7XxT4LNVdeyAkxZafSBS 3q1XpXe52V60s IHdpZHRoPSIxNSUiIHZhb Ooafs4xsI1kHy7+PGNvbC L5bQK6bS2gZfDqHyO0QPs pR671RdIwfQPk Bkqoa1epz0jutVz2JbImM GImhrAhwPckQVG8z4PhYr 39O2CgfPktt9ShMwb2jh0 3jEMqv2F1eEL0 E3MjOBYppbgxjYLgjXaaV T1aDNNlidwrIZWugU9fVJ QmO2i5BgVmSuT8OJquC3J mmzI2BTIpgUOs LRqbAPM2W38sh6N9AMCqI HQhCJU4yEI9eN1yaIryfu ogbGVmdDsgdmVydGljYWw xVQauY452YQZw aSwlBIRucA6vXEDeqWWsd KslBL0rMMLkjnuqCoiXOC wsIFNIQVdOVEUgTUFSSUU 8E4DmBiy2LICy zCcoTS8zxYKrLDkcGx3jf XqioGjjZY6eFBCdmhhpYZ LtwH9mUZJbdVSdzJyqPZ2 eCWDmzpyiq170 IgNvKPZ3KYIfmULwV2Spu Z0sQhMoDWRgVLPkL6BhpJ NvJWugB010CIosYwC5TTA ixeWbS8HsQWIs fCagLjP2a5O7Ib0qGV5yY l3nJUp6EN52EG83xVCrd0 N9uII2M3JzBOAlybuvvzb gnXT8SFGrDNFr dV80bMSxLIiwJl5zp4S8v 392VPXqOAZpvT57Oq1orK rmPICplLGDpD0iqcluk1t vcjogIzAwMDAw GFa1YXc5WPQurQwtWxPzW CW3KoS5HDH7fUQphU4ggT nwyowkhA5dCff+MzYgWWV jquX3C2TxUwf7 GPLcuAliLM7kqDLdZSlnK q7zuWsdvUbxPT6dIMNkqs xfPLShgS1wRGImqWMupYg pIF3vVFEfgjgo c644VzBzZUV5GGSzzNMfI 0AnnW7hNwImXZTgXFAuO2 HriAYrWOaqZ996HSrpEwM 3KWYtcdSwF6Uy JFVzdFnnXyC0i5M7Ko2YE Q8JZPF8R8HwTqn6KXLqmZ yxCH7mdJJnBGcgBw8vqGf lwRouZO0iPSGe dufqWKTglA8rHFLdeTWvc CroPH2eAUEbajgcw053Kk SgWSP0HCPwxVOnV6BjbM1 yOiAjMDAwMDAw G5MivSKzZOszR093TCssW pP6ZJEjrbZpW7KzKLBevJ xjJsB8c0Y8Sb4UpFNmT4L nA3r8A6RmOzjd dHI+XC94TWAxVQ67dDVhk WBif9xgsVt7ThMfZWGjQU E1zStfYXygp1OsSVTeZ04 gvGFoa0N1TJWd nGgyxIMcQuIphTY1hG5iC Imtgrqho6qzvuslHnwba0 wkcz78gB33N20xFInjFVB oPSIzMCUiIHZh eXhrie9eyG9fSl5+PGNvb AQ7xPQ6dM7uZgGgKxH1UD wqV819CvUwtDSvNtrez5z lp5xhsXg4OoIn JMGrciXrjNpxGNJ4f6MrK m17F10oREuyCVQyCFXjOG KeLBOylMrcnp5ytX2uAd6 +XB7eb2pnjp66 rH65vCD+ZMEqTUT8wGubM DcnVVGvnD3lTTcdSkI4QE IgQvQcsO51uZZyJOljCf1 pnWpqxZifDL6u OOSkkodsa340OxWuq1pxK SPhsTSjWUegOFO4R26lm7 L1IKHhUNRyQJQ6uAN7pP5 hbGlnbjogbGVm dDsgdmVydGljYWwtYWxpZ 083PZXlaGmlYsOadBGpJ8 xpcpLAVY6rLxgqiCG+PHR uGZU1cDaxMSkf ZQJzqN3cPPDjL5f5HzRvD bW0DRruV8EsmfR8DYDpdH RwMWCibQGVfU1ompjoh9a vcjogIzAwMDAw STy2RLc6NXHvpLxcZoCoG PH1PdL6YFK5eRBogZ2mdY jpaczguO5xAqt+RklOOjw vdGQ+PHRkIHN0 dEmhSKdsIZEfcJ2gXXIrD 0a6GwOcHpT4ZIugY9Wbob H8SZFghHJvQODhdSGRcW9 slfaji5qrgpcd OdRaVIHcJTb3NFi2KGEge ZmtYvPvENV8KeR1CWG1bO GyrJ3aaQdeixrneK4vAit +TVJOOjwvdGQ+ ZMUfZIN6tHokSIpmRTBfa G8wMGDfK6h5LxVeRmW7KE xeF3UekcA0KJFogEGrLEL rnZWYqE5ffiqt v0vasahqFrRySFCzMXn1F Yx9CAZsbQbfJuQjUVJ7Tz D0SXZ2kBMmkM1iwFmobsc kcR3zFwg+UGF5 KJM6WN61OR14U9NbWhitu GFibGU+PHRhYmxlIHdpZH RoPScxMDAlJyBzdHlsZT0 mVi8mEYNlBMXu bGx (more content not included)... [facility] Coding Summary HTMLBase 64 FgxexpamLRq0dJv+PGhlY WQ+NR8ZFOUeC19mzYBnsZ 8UO0xKFI9OPDYFZQECKA9 NRK4wxST2SFowC1RvgqSg BdvkhJOcPE54RZn5WRR9m FwmXXpuuQ6mhHIaP1r1Ny OeOR91aC87SIleUJKnYnH 3LjZpbjsgbWFy Q9oaQzYtvRIgPvt+PHRhY mxlIHdpZHRoPScxMDAlJy YhxHqyLB6dPk6pOTTbIJS vbGxhcHNlOiBj i4keZYBdMPtbPS8lzOnlO 2SwnYX3TMQst7g0Et87pC I+BUQqINO7zMlwUKckb38 5LwEbo8feLBR7 dKXkOXdqXPZ0F89ro9M7W TZtJKIzHVC2tJD0zE8gfL bxfbrnP3NxiPXxRfA9BBT 8eYKiiH3ciHdk vayibB8zZcq+R36DWQ5DW FPBMG0RDpy1Q9JeMandzU I+NM43GHFqKF84uQWmiJI le1nvkSb7RuEd JFErFUW4dCacMDatj1KsV KVqC67rbBZsl9S9QKVgaY xznKZnPiEftXB7qR8pROi gcsnhk7abudjd Xynrj2puvg38xU19A46pT NeyLKAmMKK7KIOjJAEgaS sszd1jrI8dAl0+RLbzb7j eh9gxnOs6KoDc JDLwijIawCzhVCJ4d5SmT m41D5ExbKzpj0MjDik5pa 42kLRtq5F9zEL6PCdpQRT dgT6hTCwfGyF5 AEJyEjCazW14jCFtHGjdV k1wuYzseWfoLN8hVRBqwh xxGXSfkO4eEJIbrGGplHn nRE4aADZfkgrp y779PcLbLOU2VSArrHYyZ 8QkmS5bJbSuBNTsVPYeC1 JzlTSnQPrgU342HGhqJkP 6CDXzegNoY2On WRPfgEzaXnK3f3Z9Ki9Jx 5UzprwfCOX9OHzxOVMoGy TsGrYqCnD1X8EjQnb3SMS ywEiuBF3iI6Hm CGGqsejprutwnCO3SYDxO SYjpY59lWXwUCvkUp7eq4 M8y225BOLuUWDlmP20Eu4 udDogMTBwdCBU lY4fwxyni3ekhkdlDdVjQ NOfZEp3UBl0TMFitOogMn QeCIU4VwD2HKH0aOGxvI5 lxYqxkgdxpB4j Oyc+R67thT3dBYQ6JTO3m pgkATKgrcRiGQ27PS87B1 RyPjwvdGFibGU+PGRpdiB heJbtSC3nYnBr k6tjv7FxWJotE1ElJSUxY SdcYwu8KCJnXZU3aZN1oU 7zFPUyLFwdh6N5fWK1V9E ydwHyna1mp5po OBSxQWayB19wwMXjh9H1X OMfpWV6XEOsnTaqXvNchE 93Oyc+AWBzfJjig2KbNvz og9jvl9tdwYa0 FwKnBOQymfEduRfmYUD4j 3OzHr02P02mKVxcNANzMS AlWYKfTNMifEowvi3ilT8 wIi8+PGNvbCB3 nEY9oY9bNURaBxU2QNjxZ 375WyQzrSTzQdkey1bhf5 ejgDu2FwAaHSVcgpTldLi jAJA2c8ZtFa71 Q20wDIheTYWhVOXxISZkR XAasNvvlz8jrB3xJc5+PC 5hg9qxki95jR64oVQ+PHR mBBC0qDudWZqp JRNdeU9mEZvsTmT4SIBgX oEkiD50gFGmJJhpEu7qqB ycsKipEH7oALCncrzag17 8KzVbx8ooETWk bGRzUZqpCSS2Z84gn8R4R OSeEHAuJUD7iZF2jX0vbE lnbjogbGVmdDsgdmVydGl sLGwzUNizV709 IHRvcDsnPlBhdGllbnQgT zMiMVl4Z1SmUnl6FFPiuN cjQJ9kkUSsOBajTz8viEj elDvjNK5yLYMp zwkql413QuWyd2bsPJHop NMiPGsuMLL8Z43go4Y0UC MyTMTmYKQ6dVW1wO1dpCe nbjogbGVmdDsg wtCorLyyIUoeFKutK997W HRvcDsnPkJpcnRoIERhdG Q7MG67NK16cXOgk4X5dDF 0B0QlZYBvvqbc icjxkWL6UJCyTFJdmH14R g4tgKnwOt4cUUBwQUR4UC CwbGKgX5KfvG4cBdGsDWX tYXBlM2FygNTu FZrjC501RGyzNnN4IBAdj lCfQ5TcLSRtmDplCfW5f9 V5Ow9TD7J2AW97BG85gJN ne3X0rXL5Y9Yh AZYcdsxbvyciqCC6YSUpF WAaoT75Jo4qkXacSo5sQD TgXVC7WNFhaLGqF1GwqA5 yOiAjMDAwMDAw S4EsmKKkNSwdQ972VHkuY qY0XRJfibYbJ9UcICWmyC dyZkE5l0F0Ys7MQSp3JO2 0UM28jITdi9S9 lLJ7H4CdFQDyjpuoifuym SN1LVIkBNUczW12Ew2nkF feVj8bEYWtRZT6JPKsgIY nL8LddB0aXvSh DVUmWAFuH5BriINnFZbhP 880VBruIuJ8QFUxqaUkH1 ZyOJUswZouTpX8v2P9Bm5 XWWQtLU37GAH2 hUH6ZD41LQ44I6ZiUzowg GFibGU+PHRhYmxlIHdpZH RoPScxMDAlJyBzdHlsZT0 zUf8xWARlSYIj aOsljFNmMfDph3exVRAzQ AmeDQ2wqRgpW9UpnSX1NS Idr6e2Wm64A43sH9GshMI +ZHAebTY1bEE7 xX8tUyBpFeQ4VOouO169G yInfKSlYcilv8fic0yqnE p6NfT4TSOzrpTdjXlnHPE 5t9YtRl76N77y IHdpZHRoPSIxNSUiIHZhb Fqdws1xxK4vVd6+PGNvbC Y3kVI2uW7dSlDtKuF4XEr xH602RyXniJHu Mzpqb4vdh2lylDi8IqZtT YFufqGbiGnbTFB5v4RsCc 92U2McbPivc4PtLzh1yx0 3nMNue6T1hMB1 A4HvNGVldxzizBIpaHzrA S5tKCLzfyhdYHXuxQ3jAC QnR0k4WoJwOvV8KLdnI5W qbhU0MABmrUWx DZjmTPW6D96zo1N6YCAjZ BRqWUK2qKF3bC6fsTgpfg ogbGVmdDsgdmVydGljYWw sYZboA743QLIk nJjlCKHtpX4cMUFtkPEeu QhuKH0kOAGuhjntNkrZFF wsIFNIQVdOVEUgTUFSSUU 4G2CpEhx7JBYc pXaxSN7jkVDwZKwjPp6ci UqmnNxtNC0tUPQsijkmHN HmbB8tQQJcmJZmaZetBX9 mBBCokvdeo523 JfNmJCC7QWRdhSZbN2Exu N0oRnFdCIEeUIKyP7WvbA MhIKzmB451POeuUcG6LJJ misXaJ0UsOHSz vIhzBlZ5d2R4Jz4yTN3wE a6xUSu9TC95CF74wJIgg1 Q4oKC0C9YeASByjnsvqji xwVF7IUGoZDGf uE60rEAyFIhcDh6tv4V4x 965QKLwASOlpT51Hp4abR duOGOlhSAOuC0hdzbjt3r vcjogIzAwMDAw CGc8LMb3THJxyZmyStAtL XM0MtY2DOU9tTAreJ0foD siazdrcC9mPnq+MzYgWWV eeyR5G0ZnLfk9 SMYmiWcxPA2uyNSmDZwcV b2jqTdwlVxgRQ0rSEZeeo eoUUFfyD0uHQBcnVGiuOw uPA7gNWWkxncw g258CyBpOXZ3VBDsqNRjC 0VpdX9gKqZuYGIgAEJxY2 CnxDEoEJcgK739DSdmKhX 5HTBruoPsW5Wi BCShhOgbJcJ9g6W0Nr9JM U9WLKZ6C1TaIuk0LIGcpV tfNZ4ozWQuXPxhTc2ftDg oeLqvWE7qDQXv jegwFBWezZ0wPUQgrWHfr LkyMV9tXLQohvbhc296Nu OrYGS9AARclQZlK5QylZ1 yOiAjMDAwMDAw G2UeqYMrTZqzX920LCmfR aO1DHQtbxDbP1OlHHGabY dhFmD4f8K6Ar3YeULfD2T jS5h3F3BnMqit dHI+WM49XVXvMM54xRRfq NDdn5pleCp2AwHfMLNoMO O8sNijIIxdy6WsVXQqK77 ubIKve5N1PGRs xZsskETiNlKvxVS8oG3eI Xzeiwtdn5ykrliiHihdj3 mohl91dE30R06dJFspBUJ oPSIzMCUiIHZh pYfhpr2wfD6wVz7+PGNvb LM0xMY2xG6eIqBwBrB0GL wyZ699MrFidNQlTognt5b ec9kwlKs5FpUa ADGwjwLajMmdNRY1b9CoU r53Z64oQBsmUJMhXDGiZV LiHUAegLpmih7ndH9uNz4 +WY2pv8ljvt72 iM38kPU+NXOpOCY3oTtrU MfeJKCfbR4iYWoyEaZ8BE QgWuBnxQ76yVKnEAuoCw6 ceNopfZghGB5p FTVechvci691BcNqi9ynM LZtnHTcNYvgZHQ5D92kg5 V8RRFqNNAsHPN9pMI8vG5 hbGlnbjogbGVm dDsgdmVydGljYWwtYWxpZ 265GDVemVekUoIgzGZgY8 boyeTYCA2yBhxmdPQ+PHR tCDF7zMyuWThg EJKdeH7aVMVvM2n8KhInL fA1IFrdZ2KfnlP6PIRewZ YiCRLjmWSCvK7cgpfas9t vcjogIzAwMDAw ZHl4WGo0NMGqaWpfSrIgE IR3PkS8NGU1tXBfcT3foG irtmmzcQ6jGcr+RklOOjw vdGQ+PHRkIHN0 cArdFEsqVIUkbF4pZGCqB 4o7UpQeFfZ7UQnaG7Zzfq N8LSCmvRGmPMAlfGULhS8 cfubfo2kmspyy ZsXkCWRzXBu6DTa7CDZhz UkvFwOiIEG5GzT1PHQ3sJ TcgM2bzUfupdazgM2zVps +TVJOOjwvdGQ+ HCZoIOX7uNxdOKujIFAqu K8lZYFwA4t9EsTzQxL3VM xcV2JfyrB8MDExiFNrKGG umHFWlZ7krnzl j3fikqglPuWiHTQaUAo5Z Vz7NVGqxVvrDdSsVYR2Vo G9DME5kRGidD1tyVoenmv ukK0pTeg+UGF5 OMV2AA59YU34K3EmRcqah GFibGU+PHRhYmxlIHdpZH RoPScxMDAlJyBzdHlsZT0 dMr3sHNOqRRIt bGx (more content not included)... Normal [facility] ED Note-Nursingon 02-17-2021 ED Note-Nursing Patient called and informed of positive Covid results. No questions/concerns. Normal [facility] 2019 Novel Coronavirus (CoVI D-19), TERESE on 02-16-2021 SARS-CoV-2 (COVID-19) RNA TERESE+probe Ql (Unsp spec) Detected Abnormal Not Detected [facility] Comment on above: Order Comment: [phone] Result Comment: Yamilet ents who have a positive COVID-19 test result may now have treatment options. Treatment options are available for patients with mild to moderate symptoms and for hospitalized patients. Visit our website at [email or web address] for resources and information. This nucleic acid amplification test was developed and its performance characteristics determined by [employer]. Nucleic acid amplification tests include RT- PCR [...] detected) result in this assay. Performed At: [facility] [id number] Shanna Correa PhD Ph:[phone] Performed By: #### [id number] ####[facility])[address] [place] [address] ED Clinical Summaryon 2020 ED Clinical Summary [facility] - Emergency Department [address] [place], [place] [id number] ED Clinical Summary PERSON INFORMATION Name: TALHA BELL Age: 35 Years Sex: FEMALE : 1985 MRN: Acct#: Visit Reason: Cough; Sore throat - Adult; SORE THROAT, NAUSEA, WEAKNESS Arrival: 02/15/2021 13:59:29 Discharge: 02/15/2021 15:33:00 LOS: 000 01:34 Check In: 02/15/2021 13:59:29 Checkout:02/15/2021 15:33:00 Address: [address] [place] [address] PCP: SAVANNAH RODRIGUEZ PROVIDER INFORMATION Provider Role [...] 90 mcg/inh inhalation) 90 mcg INH Miscellaneous JUL Items 1 EA INH Allergy Information: Levaquin PHYSICIAN DOCUMENTATION Patient: TALHA BELL [facility]: [id number] Age: 35 years Sex: FEMALE : 1985 [...] Medical history: Resolved URI (upper respiratory infection) ([id number]): Resolved.. Family history: No family history items have been selected or recorded.. Social history: Social & Psychosocial Habits Alcohol 01/31/2020 Alcohol Use: Current Type: Wine Frequency: 1-2 times per week 08/22/2020 Alcohol Use: Current Frequency: 1-2 times per week Substance Abuse 01/31/2020 Substance use: Current Comment: Denies - 01/31/2020 19:00 - Phuong NICHOLAS, Ewa 08/22/2020 Substance use: Never Tobacco 08/22/2020 Smoking [...] or hot potato voice appreciated NECK: -Supple (gsdq-rf-pnlgi): non-tender. -No swelling of anterior neck or [...] with (more content not included)... Normal [facility] ED Note - Physicianon 2020 ED Note - Physician Patient: TALHA BELL Age: 35 years Sex: FEMALE : 1985 Associated Diagnoses: Cough; Exposure to COVID-19 virus Author: ESTRELLA VALENTE, SHOLA Flower Basic Information Time seen: Date & time [...] Medical history: Resolved URI (upper respiratory infection) ([id number]): Resolved.. Family history: No family history items [...] or hot potato voice appreciated NECK: -Supple (sfqc-pa-mmvut): non-tender. -No swelling of anterior neck or [...] p (more content not included)... Normal [facility] ED Note-Nursingon 02-15-2021 ED Note-Nursing Pt presents to ED r/ t sore throat and burning when she coughs. Pt also c/o h/a. Pt states her boyfriend is here now and is COVID positive and she wanted to know if she has COVID. Resps even and unlabored, vitals stable no signs of distress at this time. Normal [facility] ED Patient Summaryon 021 ED Patient Summary [facility] - Emergency Department [address] [place] [address] PATIENT DISCHARGE INSTRUCTIONS Patient Information Name: TALHA BELL Age: 35 Years Date of : 1985 Reason For Visit: Cough; Sore throat - Adult; SORE THROAT, NAUSEA, WEAKNESS Arrival Time: 02/15/2021 13:59:29 Primary Care Physician: SAVANNAH RODRIGUEZ Attending Physician: Tiburcio Kennedy DO Comment: Visit Diagnosis: Diagnoses This Visit Cough ([id number]) Cough (R05.9) Exposure to COVID-19 virus (Z20.822) Sore throat - Adult ([id number]) Prescription Information: If you have been given a prescription for narcotics, seek immediate medical attention if you have any difficulty breathing or any sudden status changes such as confusion and sleepiness. If you or anyone you know is experiencing suicidal thoughts, mental health, alcohol and/or drug addiction problems; contact the [facility] 26/11 Crisis Hotline -Text 4HOPE to 480188. If you received any narcotics, sedation, or [...] legal documents With: Address: When: SAVANNAH RODRIGUEZ [address] [place] [address] Business (1) Within 3 to 5 days Comments: Follow-up primary care provider as needed for reevaluation. Continue supportive care measures at home as discussed with plenty of rest and fluids, Tylenol for aches and pains, baby aspirin a day, Vicks vapor rub for congestion, honey as a natural cough suppressant, nhcw-cis-fmdusdl Mucinex. Return to the emergency department for any high spiking fevers 102 or greater, intractable vomiting, crushing chest pains, struggling to breathe. Medication Information: The exam and treatment you received today in the [facility] Emergency Department were for an urgent problem and are not intended as complete care. It is important for you to follow up with a doctor, nurse practitioner, or physician?s assistant warehouse manager for ongoing care. If your symptoms [...] we can reach you if necessary. [facility] Emergency Department has provided you with a complete list of medications post discharge. Please inform your search optimization analyst/provider of your visit and for further instruction [...] Quarantine vs. Isolatio (more content not included)... [facility] Coding Summaryon 08-29-2020 Coding Summary HTMLBase 64 VjqbhhfnKHl0xLj+PGhlY WQ+HF4BTKYcN77vnCViuP 6MR0dNFO4BVMCDNLIIYI7 SLW4arYX3ULwnA6IztdWe XsjeyFGsMY93QZp4LOJ9h XafJVpjhI1sgZSjU0n4Eq XbHH03nW35ZWcfNZAsLgS 3LjZpbjsgbWFy L0oqGgZveGVyHcs+PHRhY mxlIHdpZHRoPScxMDAlJy OfrJsvPA0qHi5zLVBdPYG vbGxhcHNlOiBj k1isRELsPXkkEG1lsZilM 5JqdRT3NZMtj6y5Ri97sT I+DPBlDHR9wGbnSAaih08 7TbJyj1qlOMO5 eTExMRdrGNA7B63xj4F5W QJoROHnSFC2lIH3tL1yrJ wqxfptZ7EmvKBsGqK0PJI 3cUYucO1geKfw iawahT1dIab+H51QKW2ER NKLPS3KQgt1V3GgCpcweT I+NA03HELjJV23oRTugJA yb2sikMv1YiCc ZZHwSPP6eNilHYzhm8XwR LCsQ59xtJKiz7V7KCIioM vpuWXsXfXvgZN6bC1tWGu qihhkq1gcphmm Gfutt2iyso78dM49H66mQ WrhIKWfTGO6UQVlQJCcxS nofj5vvW8kJc0+AOwop7u fv1jbtEf3QjJq YLXsssGjnZffLFO7j0KgT r10B0OreRins8IeMoa0pf 24wYJbj1I4rWM3HBelVZY qqK2pPVxuJgE8 RSFvHpRuqX31tKEmILmlI s2zuXkkbNvvSO0rSMVccs miJDCdlF4fWYOyhYFuaYr lNK9zQXJsswqv i554IbUkKHK8YJYnwLDbY 8CbqD9gYjYgWNQzNBJaA5 IoqJNhFTzfN518HAzgFeN 8ABWmypDnH3Mu YQGwvLaxLnM4y5J8Ru1Oo 8QbdqfdVXD4MEyuWWH5Jj O5SpGnWoE1F5VxXol9WXC enYewQE3kM5Rr EOUqkfeukwuptCG7IQJtX WUffZ89qWSgYYylDt0ic0 H7s760QLNiHJRvfW30Cv1 udDogMTBwdCBU mL3exeeqg6vrtcwyQoDoC LJpABj0WNo3SWLdcVwbIy NrHKW9UbP5OSU1kYLorR7 qzLnzpgpknQ0l Oyc+J89eoL8wYJG4AHP3w nfsSKZiooGnIC21FE21V3 RyPjwvdGFibGU+PGRpdiB ufAqkYJ5eOxSv h3tdq7FvFKleC0SmPXUbG LilOnz4KZSsUFR6gIH0uS 8uEDQlUFjwf7B2kDO2Y6L tlkLghw0jd9jk BPNhRKqnO49eiWFgb4A4D QXruXM2WPQrdFnmBvTckL 93Oyc+SYUgdPgur3RkLmk br2pfv2bzlWt4 ThQkDJEteiCjaFnyTFN9p 9CpLf86L26zGSslEYLoVI QkSEQkZTMxcZunjl5caD5 wIi8+PGNvbCB3 bQZ8bL6fQHJwLwG0JElwY 843IiInyCAlJxxrk0pix2 foiUr8LyVtUKXsnkQblPg hOEW2d7KhDu12 X08hYVagNRXpVOXhKNUvH MVkpZzrml2fjG4pPj7+PC 0qs3yskx11wT38oQR+PHR xTUU2tRemWUke PKUgkR4yODimUsA0MZZyK yCltN13rDBgLGaaJu9cvB slsQhfSK4tTSJbsaypq11 7PcSdt8gnYFJz qMRxHFgkDLV2F44ng1B9W FLjJHHsHMF3aUI0bH4epH lnbjogbGVmdDsgdmVydGl kZDcyXPcaV487 IHRvcDsnPlBhdGllbnQgT kVmYJw6V4RsOfl3SENfdZ ydCA3esJCaEFoaYw0iwGh imBnrWT9oVEQa vcysr291UzNiq1nyLZUde ADpHWutXKO4S18ab9U0TO NtFPTvTSW8lID9cL9zvKf nbjogbGVmdDsg rcPnoSghRFehVYnwQ711B HRvcDsnPkJpcnRoIERhdG J1AD41BF87yBGhe8L0eSB 4P6AhDTYdbjxw logkaCL2QJCoGRMemY57Y d6jeUezHm8lYVDzKQV5SZ WazHNuP2TabU5tGgEqYPO gKHMiY7RprDFf XTgsI703OHffNlS5WYGrz hNyM4JhNFRoyNupKcF8m8 B3Hf3MW3R4MM70OB64hQE xv5R4tAQ3F0Ba EBPweuzyxxcpvYV8WIRbN EJfnQ00Fx8azVrqXz1xKP IsZQI8QWBpdSNhY6AhsA6 yOiAjMDAwMDAw C5ZvjWZnOBblI763MMcbN kV8UBWjewGkR0OlIJTekR wpWyM8n7U9Dc5RYIf5FK0 2UD34hQVvo8D9 mPX7N8CuJBMwtieqcjesx FJ3RVUdCNQvjA73Za7quF kcJj3yFXXqIII4FANpwAI gO1YfrM8zScKf VLYrTKTdQ4ZiyCEfPQooG 568GUezObF9HLMyxoXkD1 PmVMDtpUpiMlY2c5U4Vq0 GAXVkUS11GSQ2 bFE4WW26JM92Y0KkJrkko GFibGU+PHRhYmxlIHdpZH RoPScxMDAlJyBzdHlsZT0 wNn1xRCNnTHHt uLrrkRTjEiPtx6oyQDMzY CwxSY9eqUsoX8JncUN7QS Rnd6e8Gr05S27hG7YdiBU +LZKfwUG1bVR8 tC1zQtDbYlY3UJlcD017H aEidAFiQpvvf8jio3eezT h5ZrB9RIQcodKkmDmnZFX 3p6PcNn60K78b IHdpZHRoPSIxNSUiIHZhb Aqgdv5jsC8yWv2+PGNvbC J4cNM8sX3lVzErFoP7UGx zU525CsBrgUZz Yvdve2qpn9zpqNx3QxNdW PCmxfLhcAgtOTR0a3GySs 55D4MinQrlv8SoCjw7it8 2hKOik3A3gVE1 X9IlFXXvbxfkvSXybBvvY J5hMZGfyaosBGPjcR5yAN NjE9y4WlCbBmE1YGniN5J katY9OECkvEFu YQvdSTY5A48wo3K9QQFgP TPeMDT3kUO9pK8eqSxell ogbGVmdDsgdmVydGljYWw hIEntH884TEDr eHkgASXjnD3aCPXszHPte OeyST7dYHLxahumSvtHFF wsIFNIQVdOVEUgTUFSSUU 4X7GhToy3ISYc zLiqNZ0ygVIlPLdqPv8on PopvFydNG1zQKGsejnzMB MpdD4yABFkfLGcxOxgQJ4 jKYQnuhezd810 HyVtTKJ2UUQhsXVxS8Owx U4dJxPsGYUlITBfN7NqoH PxIAscT648IAwwQeN9TII xkwPwW2MePMNa gTrmBrW8o0Q3Ij7jRN8nA b5yGYk5NG87TN34eKUhq6 Q0wXE4I4FrNHCpwxapkbs tmNS7GLUpDTKk rP72rHKbVCsmVu4fx1U1e 027MDYiLLOewJ31Ld8jdI tpHLKkoIMRuG4ziklla4t vcjogIzAwMDAw ZEy3EYg1LHKhyEfiSsXpJ CV1UkO2YUB5bFKeiP2wsY qzjgbrbM0pLug+MzYgWWV qwlB4J1IfPej1 QXUkzFkfQZ0wfDHoBXgmF z7fjYzseEbdFH0sKFAvfr ixCEKnyC9iFTMdtYHjkXv mWZ1rEVTanppv q486XuIkJBS9IYWhbEJqP 5BkfN7fZzTeLCOtQIRyX1 OrhDTdTWnoE336ECbgOnL 2QLUjaxHwZ6Dt HOMugMhePdH9l0E2Ad3RS N3XHKO4L0YcIcm4ADFawA ulUB2jiKOxFWeuRf6fdUq ifOxoMR8hDEOc ybzrYBOxdQ9nGFQhmZKrk MwiPH0oTVMhmzpsq047Pw FwOII1INEnxYRlJ7NkbT7 yOiAjMDAwMDAw A9MzfUDsMEcnJ773OLneG oK3PMMqdnLrG6PqSHOrdI nlTiB6k9R8Ek6VKBkwkPZ +JU70xj91S2Vc TiviDlr3IYTnPGL3tAW5p N2nJHFqRKifm2J0jPD1T3 AolmMuml8fx4xuNTEuYSa gH55ljVGms3P9 QQFfwFC2LDLmdYisGsJaa G93Oyc+DLTnzGcex9TfDg qlh1itq7bbfYc4SrShHZY gdmFsaWduPSJ0 c4ZuFp34X45rXFnfVNQmK BEhJKPgIJVrrBspwt3upO 9wIi8+DQIgfLA3pDC2gT3 rKdZyFlD9VPsh A909HuOtcZHuXofjj3sgu 9eniDl5PcZeVISzsbKifN xsZCO7v9QlWb45T5TpkYr qt4XeTfa5ap83 pKWdh4G3oJS6K5BrXJJtj wwmeYIfuYrlJA4oCRYtod nfINFwuT4eDVRoZ6c5OoU nBdF8DMnoI7Mg gkT9KDDhcMEdBTMqjKLHn P9brnkpb6fxgajlBwDlVU CsWPb8JMc0WUNzsMahFxP uKCO0SsE8BSH7 iUVcdZ2sgLeadzjrbV5nS yc+UFx2f4uzfWHlHW3mfE W5CU82EI82gYQgk8C9jCS 0M0LvJUMytobl iqwbeDW1ROFvMHSuvM71J v5phGtaZr7wAIKqOTM3VM WudVCkM3EtqM9kXpCkUSY pXMOgG0RoeSSx BYhbY409RCtlXxZ0DPVgv tCoN1IhMEZizMngNbC5j4 M0Tf7ZRX37YG85DF25fAB rl9R7wKI0Y2Gn OZSkudjsbqlgiLP0VQQpS XXosV60Gj9ueEfxHz4cDV HiQGR9UOBqfPXaH7UjxF4 yOiAjMDAwMDAw A8EokPMzSBoxH270RPezV fT4KEYmwkKiH8YrZFLbxT psXkS8p7O2Ny1ZZy21QA8 0NP68wGPzk9S6 fXI3D4EdWJPmcufghwnen YT5XOEcUDHnlK10Dg0pjS ygXe8aFSRlRLH5VJGmnTQ nM2CchI9nKeBv IHTpJPIyR1DdeUJzTThzN 938SLdoKgX9LSVgnyIiH3 OyMWLrtKcuBvH6y5F4Ra6 BCLfflqe9M0Sb PjwvdHI+OH07SNGuMJ28b QNudBHff8bmzIp8XsGzGK SbMBP4yJzaHGmwh7XiZFB eG54dtYGgq6U8 IGN (more content not included)... [facility] Coding Summary HTMLBase 64 LotbkyovUDp6tRn+PGhlY WQ+XX2YSXQdJ24opSBcnN 8IZ7eQZQ0VRYQKGGTVMM1 RMO8hhNS1HUbqW7KpcjRq RatusMMgQU11CPq7VPF6s WhmFXyfoU6psAIjN8j2Cf FkXD99lO57WKqcHNIlUjQ 3LjZpbjsgbWFy F2uvGiQdpYTeNer+PHRhY mxlIHdpZHRoPScxMDAlJy BczZbdFY9pOh8tRQJiZCV vbGxhcHNlOiBj t8jsLPOpMPppGW3fxIdkB 1VemXL7GXJrw8u7Pd61aU I+RQZzPCN7mZcaDDpph27 8PcZhy3fkRUE8 aNXzNUyoOPP6G40pa3I2H SJlGCErXZE2rSJ1uX6hqZ wcidxcO1AnqMYhFqX6ROH 1hKJbfU3hmKdp qiwuvI7yOeq+T23RCY5XC GAQUZ4CMij6G7YpMgnrlR I+PV98SCNfPS61xTTuhFL rz8bcgMk6SiMf OZZbJBP6zGmwGOddb2DoE BUiC65yyRNdr0T4RITkhS ssdYLaDvZhxAS8eU1xQEv cdfggg2hirhun Odzuo3avkb25yU53C41rO RqnHRTlCQL6NCEqOTNibN bxuw8izK2jUa7+WFxgx5m gq8jobHd2AbCc DCZgobQnsTnjQWC6r3UgC m27F1BeyLsfb4HaHgl8xd 64sNSnr0B9sFM3ZJmeXBU haH6iGPrkXmW6 HMGuFsKnnL76uOEhLWgsQ o1apYnaaZodZG9bJJMhcv wdRMXvlJ6lDDHowUKjhIj yTX7hXZYpjpoh n182QgVhPZT3VACenHYlM 3FbrK0wYoRkTUHrPLNbZ0 UyyILjTKmxW174OBacXzH 8NDLjjnVpV1Hu SKWpcFwiTgR9m6I7Fq1Bl 6JlsipqUEJ2DBhwHEX3Lx F3CoGyJbX3Z2RfVjo3LQN kpMenQD0vK2Vb WGMiarpfybcsrQL1WRDgS UWdjO94eVYzOIixSz1io9 V3q363YIMfUWYdbX51Mx0 udDogMTBwdCBU nX1bdsvhv4vsynsfOfGfV KClHUz5WAb3BPKbeRgkRt WeWOL3UuC5THW4zTPgiM5 qfWcoietdyU4x Oyc+M19vdO2lWBJ1OIO4i osbGVDpbmEcPB06FZ89D1 RyPjwvdGFibGU+PGRpdiB tzFsiGO1rIeSu l7pig1TjKNlnP0BpRKFqK DzbTxu3XRNgGKT7hDQ5fM 6kUSPxRHwzj6U2wIQ0Q8O punFhlu3no3jx VWQmWQnvY06tkVNuv8O1E ACzhSN9FHFvqOscXdBdpD 93Oyc+QQIpeWpvr1McUkt ix0wcv2golTm3 GtEgKFVujaVjpLykSTJ8x 9NsBf25V49bIVxnUHBbYA OtEGZbQFYksKloxr4igQ9 wIi8+PGNvbCB3 jJZ6qW0xTXKtJzG3WCtoW 563JzMlxMKkBxpys7vbt7 thbNw3AwZiFDHjhkDmdCx uILI2d2NvMj09 Y64zIRcwETBoDKFpJCAqW HZueTpmvq9fpW4mWz2+PC 1wd8jtzm77nZ97eML+PHR eSLF0mRmhNAfb GZSqeT3nJLtiRcQ6OJFmJ bMxtK95aEDwARfdCs6haF digQmcFU2wSMItmmzct33 0KmVyh5hlHYYu oCOjDRntGQI7R09mm1E7T HYjXCXjPJF9yWP7oZ6ghG lnbjogbGVmdDsgdmVydGl cXNmrLLibI126 IHRvcDsnPlBhdGllbnQgT xFgWCe3T0PbZtb3NIKdwF neRO4vnFIzIShdYp5lpGl ykDhjGV2hGSHa iipub100CkZol6hiSLIuk ACkJGzcEJR0L86ro9U7MB ZgCVWrFBH1uKZ2jP8nbJy nbjogbGVmdDsg dpMzlAtdCGcsWHfqR349F HRvcDsnPkJpcnRoIERhdG A0EK38QD24nGKda4X0bTZ 7Z9WeWJKnwwdf ribcjBQ3QISbKARbyE12H p6gqMpqOi0vADGcIXB6AS ManOPbX1DsbB1dNkGgFKJ qXXMuZ6XnlLYk QWbxE244IGpeTkC6QELte aSfS9ZbJSCsgBsiUhL4n3 Z7Da8LA9W5LW57DI22lFK rl5E3jAJ2Y7Dg IEGtgtyjshgmgBA4GREfP RJesP76At4gfFhxSm0zPZ AzSAK7YUMjgYAiW4UpbH3 yOiAjMDAwMDAw A6GjaEExVIeqP553LCzmO rY5WCLpnoRrB8VzBYBagL zzFjP9h5N2Wy2WGCj1OB5 3TN75wHMqn9P9 aSO5O9QuFASpslguupbyq WW3HOCqTCNopP95Yl7bcF zoBl1nDVFhXIJ8TSSukIW rO5OwcC0jIgCl HKPxQOYlK1KtzQIoEDcxF 541RQzxZpK6XIIytxKiC4 VmVSSsqAgxErT5u7D5Bs3 WGMTnXQ52VEX6 qBO4PX60MZ52R0FhEmoyi GFibGU+PHRhYmxlIHdpZH RoPScxMDAlJyBzdHlsZT0 aCi4pCYKfNIBv dYinxYVwOwMdb3tiMUIkR EzvDA6mgMxtR5UaxWN8VO Vrj3c8Ly10S48cV0VdnVW +DWCdvQQ1eJY3 jN7dRcNmCzP3NIobA717O bArmJBeOpaor3bdz1mpkZ u4JtZ5QQZvvgMhjUtnSGB 7k9AgAw53E65u IHdpZHRoPSIxNSUiIHZhb Drlks1zhF0wKf5+PGNvbC I9gRT3bP5zZlIxWiM3URp nS924YjVqdXCl Cwoeu2xox8ygwAc0KmMrE ZCgroLdtUthQNZ3x9HtOv 00T6IlgSnkk3ElRlm4ns6 7fFCks1J0cMX6 J9PoFNRczmetxQGrtEszB M6aVJRlmkkcKNUxzM4zVG SnO9r5EnCsAqG2FSqqU3T vkzO4KHGkjXTm FCtuGVB8Q18pz2P3FSOeT IMbIFY1dAC6vN2wwPdyoj ogbGVmdDsgdmVydGljYWw iHVzhR675XQCo yKjwXTYuhO8aTLRjiAMia QfzNZ1yUIBkdiasHuxDPI wsIFNIQVdOVEUgTUFSSUU 9A4WjZdx4QKPy jDipSY5bhLZkGOyvLp4st NcuaRdrKG6lWTCpwnshRF XpvN3xQOHaoIPafFxpQA7 sBJYirvasj247 GeJkANL6XLJhzVVpD2Njk J6wQpHvWKFhWEAbH7YuwE BbLKilG773GFviHfM9DPV imeIbT2ZzCCKx vVywMlY8w6I4Lr6bAE3dF v8wTZh4KI21MH09qDCbg5 F4aCO9U8XnQBFcvqqrofs rdOD1LKTvBDRb rC84qYGlOSizDb7lg0C0d 116FKVtWLNniZ23Xn7shM oiZBMiaMNIiH2vzufmx5e vcjogIzAwMDAw VPh0JIy0LOHajHnmRyTiE HO1BhR9XDV3bBYyuD5ynR scrkbovI5vVwd+MzYgWWV altS1X5OdEhu1 OJRywXfeJO8rmRIvTLaaI w6vbWtrqLgrFC9yAEGply puINEvpC5bYHKyvVWogJw gVT5lAUJsearu q267OdGpHUL7VYHovMEsT 0QehN0bGrYrGVWiHOPoB5 WhzEFaDGfnE750QPfzNwI 1URQvdaAeT3Bt TBNpdRecRlN5k2F1Ap2OH R7YLHQ5G2RdJdq9OQTucX vcBV0fiJYaGRjzZg2slEa uyBkoLA8aDXHh bjloDJBluN5bPPSwhPFdg BjaLD5xSGKccrhzd812Yp CgBYS9JIOmgQMqR3YaxF4 yOiAjMDAwMDAw R3MzeCNoZYpuN260ADeuI kC9HWGpekVuT8OkIRIopE ueYyN9z2C5Ga3UaJHoC2V rN6k0X5YzTbuq dHI+HV74IMYqJJ22eWDst VUtg4kzdXy1LlTqQTJuXP I9vFpzAZgzu2JrWXYsL67 buLVzd4C0JGGj eEqptNGnDzVusVG0pU0tF Zqapvgec3norafcVcbzh7 xyzg94xX89M62fTOxrSWP oPSIzMCUiIHZh kKxoqc2geY5iHu2+PGNvb XK8nZP7bT4gOfXeQdC9OZ sxM661JiGzoCXlTamvm9q fo8ozqHa1BuNh TFBxotLmeTggBRZ9n9QmX j20I25mLVkkXEObXCLdNO RiEVVauXwkcb5fiI9pIm6 +AL7lx7rkbi74 uA85mCS+TGStKDI1uNceQ LsuQIJfhL4wHAgaWeZ5AF ExLpHtpT70pUSeIZydXf4 vrIspbOsaNX3f DFYcxyocv742DgLug8qxP MBxrYRjIKohQMX3E04dd5 G2OYGmITYuTCF3vRT0iJ0 hbGlnbjogbGVm dDsgdmVydGljYWwtYWxpZ 392ODZfpPkhCjGgaJVzH9 ncefTKMP3zSezczST+PHR mJDF4wSupHSwg RLNhuL7iUCDvH9u3JhKzR rA1JCveC5IvxsF3CWCcgW HdDUFcoYJLmA8iscslg0n vcjogIzAwMDAw PUk3NOj9ZLWzcLvdTuTcW QP9LeO2UZY8zFSkeG6ymE ezhcbieY9jXcx+RklOOjw vdGQ+PHRkIHN0 hYmeJGpiZGPalN4tVVKxO 4s7SyKxTdG2EIjjF8Owxm H0BYVgtCXyWZBxeGERkP5 rmrmeb5onnllg IsBhERFgJXg4UNt0NBSjc KvjBnXsMAD1XyD8RNW3rG OvrB5biGyefdywlL1xAtc +TVJOOjwvdGQ+ NSTeJCA4qZlbTKhtACAvc S2kIVWpK8s7BbEbNiE7LD zpU0BfiuJ7FEXwuKPlGSB ceZNUuQ3pcgvj s0ojkdwoYeLsDSLhAFl7E Yy0LDUpyDbtBaFjDQN4Hh P2KFQ5iYSmnH8kjGvidry ktB0dVnw+UGF5 BUD1IP01FC11C5ZqHmibm GFibGU+PHRhYmxlIHdpZH RoPScxMDAlJyBzdHlsZT0 oKo8iVKFlUMAa bGx (more content not included)... Normal [facility] Chlamydia trachomatis, TERESE L Con 08-25-2020 Chlamydia trachomatis, TERESE LC Negative Invalid Interpretation Code Negative [facility] Comment on above: Order Comment: Send results to Dr. Rojas Result Comment: Perf ormed At: =G [address] [id number] Beatriz Reyez MD Ph:[phone] Performed By: #### 1 [id number] ####[facility] (DEFAULT)[address] [place] [address] C Urineon 08-24-2020 C Urine No growth at 2 days. Normal [facility] Comment on above: Performed By: #### 6 [id number] ####[facility] (DEFAULT)[address] [place] [address] .Auto Diff 1on 08-22-2020 Auto [place] % 7 % Normal 1-12 [facility] Comment on above: Performed By: #### 1 [id number], [id number] ####[facility] (DEFAULT)[address] [place] [address] Baso Abs# 0.0 x10 Normal 0.0-0.2 [facility] Comment on above: Performed By: #### 1 [id number], [id number], [id number] ####[facility] (DEFAULT)[address] [place] [address] Basophils/100 WBC (Bld) 0.2 % Normal 0.2-2.0 [facility] Comment on above: Performed By: #### 1 [id number], [id number], [id number] ####[facility] (DEFAULT)[address] [place] [address] Eos Abs# 0.1 x10 Normal 0.0-0.4 [facility] Comment on above: Performed By: #### 1 [id number], [id number], [id number], [id number], [id number] ####[facility] (DEFAULT)[address] [place] [address] Eosinophils/100 WBC (Bld) 1.3 % Normal 0.9-4.0 [facility] Comment on above: Performed By: #### 1 [id number], [id number], [id number], [id number] ####[facility] (DEFAULT)[address] [place] [address] Lymph Abs# 1.9 x10 Normal 1.3-2.9 [facility] Comment on above: Performed By: #### 1 [id number], [id number], [id number], [id number], [id number] ####[facility] (DEFAULT)[address] [place] [address]30 Lymphocytes/100 WBC (Bld) 35 % Normal 14-48 [facility] Comment on above: Performed By: #### 1 [id number], [id number], [id number], [id number], [id number] ####[facility] (DEFAULT)[address] [place] [address] [place] Abs# 0.4 x10 Normal 0.0-0.8 [facility] Comment on above: Performed By: #### 1 [id number], [id number], [id number], [id number], [id number] ####[facility] (DEFAULT)[address] [place] [address] 28488 Neut Abs# 3.0 x10 Normal 1.5-9.2 [facility] Comment on above: Performed By: #### 1 [id number], [id number], [id number], [id number], [id number] ####[facility] (DEFAULT)[address] [place] [address] 15337 Neutrophils/100 WBC (Bld) 56 % Normal 44-88 [facility] Comment on above: Performed By: #### 1 [id number], [id number], [id number], [id number], [id number] ####[facility] (DEFAULT)[address] [place] [address] C Genitalon 08-22-2020 C Genital Send results to Dr. Rojas vp training Heavy growth of Gardnerella vaginalis No HILTON performed on this organism No growth of GC at 3 days. Gram Negative Diplococci not seen. 4+ Gram Positive Cocci 4+ Gram Negative Rods 2+ Gram Positive Rods 1+ White Blood Cells Normal [facility] Comment on above: Performed By: #### 2 [id number] ####[facility] (DEFAULT)[address] [place] [address] 59035 CBC w/ Auto Diffon 1 Erythrocyte distribution width (RBC) [Ratio] 14.3 % Normal 11.5-15.0 [facility] Comment on above: Performed By: #### 1 [id number], 12915135, 9087197, [id number], [id number] ####[facility] (DEFAULT)[address] [place] [address] Hematocrit (Bld) [Volume fraction] 34.4 % Normal 33.7-40.4 [facility] Comment on above: Performed By: #### 1 [id number], 51308209, 7219879, 4466831345, [id number] ####[facility] (DEFAULT)[address] [place] [address] Hemoglobin (Bld) [Mass/Vol] 11.2 g/dL Low 11.3-15.9 [facility] Comment on above: Performed By: #### 1 [id number], 49731438, 5834034, 0808870480, [id number] ####[facility] (DEFAULT)[address] [place] [address] Instr WBC 5.4 x10 Invalid Interpretation Code [facility] Comment on above: Performed By: #### 1 [id number], 19821679, 0025886, [id number], [id number] ####[facility] (DEFAULT)[address] [place] [address] 96150 Man Diff? Auto Normal [facility] Comment on above: Performed By: #### 1 [id number], 70026788, 0173258, 0816156980, [id number] ####[facility] (DEFAULT)[address] [place] [address] 33969 MCH (RBC) [Entitic mass] 28 pg Normal 24-34 [facility] Comment on above: Performed By: #### 1 [id number], 78981239, 3354683, 8381485251, 1164963461 ####[facility] (DEFAULT)[address] [place] [address] 49665 MCHC (RBC) [Mass/Vol] 33 g/dL Normal 26-37 [facility] Comment on above: Performed By: #### 1 [id number], 15867875, 8106314, 3083929324, [id number] ####[facility] (DEFAULT)[address] [place] [address] 47058 MCV (RBC) [Entitic vol] 84 fL Normal 81-100 [facility] Comment on above: Performed By: #### 1 825135636, 13982317, 3503393, 1396523369, 0462516458 ####[facility] (DEFAULT)[address] [place] [address] 74661 Platelet 200 x10 Normal 138-427 [facility] Comment on above: Performed By: #### 1 907113159, 63104267, 1201780, 1305544326, 7402973043 ####[facility] (DEFAULT)[address] [place] [address] 57535 Platelet mean volume (Bld) [Entitic vol] 11.3 fL High 6.3-10.2 [facility] Comment on above: Performed By: #### 1 527000514, 96857685, 2743378, 6517885730, 8070059583 ####[facility] (DEFAULT)[address] [place] [address] 53187 RBC 4.07 x10 Normal 3.70-5.30 [facility] Comment on above: Performed By: #### 1 614129910, 87067015, 4089662, 7956213881, 7493480496 ####[facility] (DEFAULT)[address] [place] [address] 30721 WBC 5.4 x10 Normal 3.5-10.5 [facility] Comment on above: Performed By: #### 1 275906110, 95373184, 5843392, 1696326542, 5027805578 ####[facility] (DEFAULT)[address] [place] [address] 99909 CMP Standardon 08-22-2020 eGFR Non AA >60 Invalid Interpretation Code [facility] Comment on above: Performed By: #### 1 [id number], 44262524, 6149307, 2099383485, 2522877571 ####[facility] (DEFAULT)[address] [place] [address] 06573 eGFR AA >60 Invalid Interpretation Code [facility] Comment on above: Result Comment: Monomer Recovery Supervisor alejandra Kidney disease could be indicated at eGFRs of less than 60 ml/min/1.73m2. Kidney Failure is indicated at less than 15 ml/min/1.73m2 Performed By: #### 1 [id number], 20741372, 4037870, 8774412087, 2244958865 ####[facility] (DEFAULT)[address] [place] [address] 05894 Albumin [Mass/Vol] 4.6 g/dL Normal 3.5-5.0 [facility] Comment on above: Performed By: #### 1 621462677, 86592189, 3666883, 6567587958, 6619413578 ####[facility] (DEFAULT)[address] [place] [address] 58055 Albumin/Globulin [Mass ratio] 1.8 {ratio} Normal 1.4-2.6 [facility] Comment on above: Performed By: #### 1 167196647, 03251808, 8156316, 4972860626, 8205200925 ####[facility] (DEFAULT)[address] [place] [address] 68656 Alk Phos 61 IU/L Normal 32-91 [facility] Comment on above: Performed By: #### 1 309893123, 67388101, 7086231, 3390612382, 0294510282 ####[facility] (DEFAULT)[address] [place] [address] 86227 ALT [Catalytic activity/Vol] 16.0 U/L Normal 14.0-54.0 [facility] Comment on above: Performed By: #### 1 720758959, 87993636, 9814181, 1851582596, 6712042564 ####[facility] (DEFAULT)[address] [place] [address] 52478 Anion gap [Moles/Vol] 14.0 mmol/L Normal 5.0-19.0 [facility] Comment on above: Performed By: #### 1 273830413, 16138748, 4685900, 5252970371, 7152480145 ####[facility] (DEFAULT)[address] [place] [address] 25709 AST [Catalytic activity/Vol] 16 U/L Normal 15-41 [facility] Comment on above: Performed By: #### 1 913320671, 03975785, 8009954, 9902430518, 2462301851 ####[facility] (DEFAULT)[address] [place] [address] 99491 Bili Total 0.8 mg/dL Normal 0.3-1.2 [facility] Comment on above: Performed By: #### 1 597271946, 01944033, 4941743, 2676922259, 0152604791 ####[facility] (DEFAULT)[address] [place] [address] 85284 Calcium [Mass/Vol] 9.3 mg/dL Normal 8.9-10.3 [facility] Comment on above: Performed By: #### 1 130029271, 22560439, 8266939, 8143073597, 4035837596 ####[facility] (DEFAULT)[address] [place] [address] 65640 Chloride [Moles/Vol] 105 mmol/L Normal 101-111 [facility] Comment on above: Performed By: #### 1 500569442, 69268853, 6590675, 5940081746, 5235219397 ####[facility] (DEFAULT)[address] [place] [address] 90678 CO2 [Moles/Vol] 21 mmol/L Normal 21-32 [facility] Comment on above: Performed By: #### 1 290761541, 46253340, 8845236, 8782703259, 3114171709 ####[facility] (DEFAULT)[address] [place] [address] 59575 Creatinine [Mass/Vol] 0.90 mg/dL Normal 0.60-1.30 [facility] Comment on above: Performed By: #### 1 933142202, 07464327, 2169343, 2132495660, 7607055457 ####[facility] (DEFAULT)[address] [place] [address] 41666 Globulin (S) [Mass/Vol] 2.6 g/dL Normal 1.5-4.3 [facility] Comment on above: Performed By: #### 1 120044718, 65132579, 9094940, 3469105002, 0858648113 ####[facility] (DEFAULT)[address] [place] [address] 37332 Glucose [Mass/Vol] 99.0 mg/dL Normal 74.0-118.0 [facility] Comment on above: Performed By: #### 1 822211664, 43651210, 2347485, 4692189664, 5895765561 ####[facility] (DEFAULT)[address] [place] [address] 16429 Osmolality 272 mOsm/L Invalid Interpretation Code [facility] Comment on above: Performed By: #### 1 004771940, 10809669, 6445862, 9083941773, 4756424023 ####[facility] (DEFAULT)[address] [place] [address] 81486 Potassium [Moles/Vol] 3.8 mmol/L Normal 3.6-5.1 [facility] Comment on above: Performed By: #### 1 260156508, 00605090, 2209236, 5679931470, 3051771609 ####[facility] (DEFAULT)[address] [place] [address] 88434 Protein [Mass/Vol] 7.2 g/dL Normal 6.5-8.1 [facility] Comment on above: Performed By: #### 1 943961037, 84384718, 5524180, 7746786441, 4647780094 ####[facility] (DEFAULT)[address] [place] [address] 78120 Sodium [Moles/Vol] 136.0 mmol/L Normal 136.0-144.0 [facility] Comment on above: Performed By: #### 1 504252237, 16842160, 6671428, 5966499790, 9489414585 ####[facility] (DEFAULT)[address] [place] [address] 79007 Urea nitrogen [Mass/Vol] 13 mg/dL Normal 8-26 [facility] Comment on above: Performed By: #### 1 591006860, 30925890, 1006144, 1402915471, 4564925714 ####[facility] (DEFAULT)[address] [place] [address] Urea nitrogen/Creatinine [Mass ratio] 14.0 mg/mg Normal 4.6-16.2 [facility] Comment on above: Performed By: #### 1 885754784, 51880677, 3801867, 3975029438, 0543753612 ####[facility] (DEFAULT)[address] [place] [address] ED Clinical Summaryon 2020 ED Clinical Summary [facility] - Emergency Department [address] [place], [place] [address] ED Clinical Summary PERSON INFORMATION Name: TALHA BELL Age: 35 Years Sex: FEMALE : 1985 MRN: Acct#: Visit Reason: Dysuria; Weakness; STD exposure; Pelvic pain; Flank pain; PELIVS PAIN, LEFT KIDNEY PAIN Arrival: 08/22/2020 17:41:37 Discharge: 08/22/2020 19:50:00 LOS: 000 02:09 Check In: 08/22/2020 17:41:37 Checkout:08/22/2020 19:50:00 Address: [address] [place] [address] PCP: SAVANNAH RODRIGUEZ PROVIDER INFORMATION Provider Role [...] States it was completed by Dr. Rojas vp training in [place]. Patient states that she has been doing [...] transmitted infections. States her boyfriend worked in [place] for approximately 1 month and states that [...] she has a follow-up appointment with her MEAT CURER on Saturday of this week however states [...] 30 mL, IV Push, As Directed, PRN: linen controller Prescriptions Prescribed B (more content not included)... [facility] ED Note - Physicianon 2020 ED Note - Physician Patient: TALHA BELL Age: 35 years Sex: FEMALE : 1985 Associated Diagnoses: Vaginal discharge; Flank pain; Dysuria Author: Azael Crane PA-C Basic Information Time seen: Date & time 08/22/2020 17:45:00. History source: Patient. Arrival mode: Private vehicle. History limitation: None. History of Present Illness This 35-year-old female presents here to the emergency department with chief complaint of left-sided flank pain dysuria urinary frequency left-sided pelvic pain. Patient states that she had a hysterectomy approximately 14 weeks ago. States it was completed by Dr. Rojas vp training in [place]. Patient states that she has been doing [...] transmitted infections. States her boyfriend worked in [place] for approximately 1 month and states that [...] she has a follow-up appointment with her MEAT CURER on Saturday of this week however states [...] 30 mL, IV Push, As Directed, PRN: linen controller Prescriptions Prescribed Bactrim DS 800 mg-160 mg [...] Medical history: Resolved URI (upper respiratory infection) (62108848): Resolved.. Surgical history: section (24171380). Comments: 09/16/2017 17:09 EDT - Denzel NICHOLAS, Mildred X4 Tonsillectomy (934984543). TL - Tubal ligation (852864091).. Social history: Social & Psychosocial Habits Alcohol [...] 2012 (more content not included)... Normal [facility] ED Patient Summaryon 021 ED Patient Summary [facility] - Emergency Department [address] [place], [place] [address] PATIENT DISCHARGE INSTRUCTIONS Patient Information Name: TALHA BELL Age: 35 Years Date of : 1985 [facility]: [id number] Reason For Visit: Dysuria; Weakness; STD exposure; Pelvic pain; Flank pain; PELIVS PAIN, LEFT KIDNEY PAIN Arrival Time: 08/22/2020 17:41:37 Primary Care Physician: SAVANNAH RODRIGUEZ Attending Physician: Tiburcio Kennedy DO Comment: Visit Diagnosis: Diagnoses This Visit Dysuria ([id number]) Dysuria (R30.0) Flank pain (R10.9) Flank pain (882227558) Pelvic pain ([id number]) STD exposure ([id number]) Vaginal discharge (N89.8) Weakness (17428316) Prescription Information: If you have been given a prescription for narcotics, seek immediate medical attention if you have any difficulty breathing or any sudden status changes such as confusion and sleepiness. If you or anyone you know is experiencing suicidal thoughts, mental health, alcohol and/or drug addiction problems; contact the [facility] 26/11 Crisis Hotline -Text 1ZGUL eq 822707. If you received any narcotics, sedation, or [...] legal documents With: Address: When: SAVANNAH RODRIGUEZ [address] [place] [address] [address] [place] [address] iQiyi (1) Within 3 to 5 days Comments: Please follow-up with your MEAT CURER in 3 to 5 days. Keep your [...] a prescription for Bactrim was sent to [facility] pharmacy for you in which you [...] also be sent to Dr. Rojas your vp training. Continue to monitor your symptoms and return here to the emergency department if you develop any fever, chills, worsening pain, if you develop any abdominal pain or any other worsening or concerning symptoms. Medication Information: The exam and treatment you received today in the [facility] Emergency Department were for an urgent problem and are not intended as complete care. It is important for you to follow up with a doctor, nurse practitioner, or physician?s assistant warehouse manager for ongoing care. If your symptoms [...] we can reach you if necessary. [facility] Emergency Department has provided you with a complete list of medications post discharge. Please inform your search optimization analyst/provider of your visit and for further instruction on these medications. Any specific questions regarding your chronic medications and dosages should be discussed with your primary care physician(s) and/or pharmacist. New Medications [id number], [address], [place] [id number], [phone] sulfamethoxazole-trim ethoprim (Bactrim DS 800 mg-160 mg oral tablet) 1 tab(s) Oral 2 times a day. Refills: 0. Medications to Continue That Have Not Changed Other Medications (more content not included)... [facility] Extra Redon 08-22-2020 Tube Collected Yes Invalid Interpretation Code [facility] Comment on above: Performed By: #### 1 [id number], 68688032, 1143310, 2399631794, [id number] ####[facility] (DEFAULT)[address] [place] [address] 85875 UA Ndqiw1ic 08-22-2020 UA Amorph. Rare [facility] Comment on above: Order Comment: Urina lysis Microscopic order added on by [employer] Rules system. Performed By: #### 5 [id number], [id number] ####[facility] (DEFAULT)[address] [place] [address] 98252 UA Bacteria Trace [facility] Comment on above: Order Comment: Urina lysis Microscopic order added on by [employer] system. Performed By: #### 5 [id number], [id number] ####[facility] (DEFAULT)[address] [place] [address] UA RBC 0-2 [facility] Comment on above: Order Comment: Urina lysis Microscopic order added on by [employer] system. Performed By: #### 5 [id number], [id number] ####[facility] (DEFAULT)[address] [place] [address] 17589 UA Squam Epi Few [facility] Comment on above: Order Comment: Urina lysis Microscopic order added on by [employer] system. Performed By: #### 5 [id number], [id number] ####[facility] (DEFAULT)[address] [place] [address] 40456 UA WBC 0-2 [facility] Comment on above: Order Comment: Urina lysis Microscopic order added on by [employer] system. Performed By: #### 5 [id number], [id number] ####[facility] (DEFAULT)[address] [place] [address] 60034 UA w Culture if Ind Standard on 08-22-2020 Breakpoint UA Normal [facility] Comment on above: Performed By: #### 5 [id number], [id number] ####[facility] (DEFAULT)[address] [place] [address] 33951 Color (U) Yellow Normal [facility] Comment on above: Performed By: #### 5 2557894, [id number] ####[facility] (DEFAULT)[address] [place] [address] 97521 Culture? Not Indicated Invalid Interpretation Code [facility] Comment on above: Performed By: #### 5 [id number], [id number] ####[facility] (DEFAULT)[address] [place] [address] 68419 Glucose (U) [Mass/Vol] Negative Normal [facility] Comment on above: Performed By: #### 5 1661967, [id number] ####[facility] (DEFAULT)[address] [place] [address] 96172 Ketones Ql (U) TRACE Normal [facility] Comment on above: Performed By: #### 5 5121047, [id number] ####[facility] (DEFAULT)[address] [place] [address] 70399 Micro? Indicated Invalid Interpretation Code [facility] Comment on above: Performed By: #### 5 6927932, [id number] ####[facility] (DEFAULT)[address] [place] [address] 99581 UA Bilirubin Negative Normal [facility] Comment on above: Performed By: #### 5 8962019, [id number] ####[facility] (DEFAULT)[address] [place] [address] 94523 UA Blood Negative Normal NEGATIVE [facility] Comment on above: Performed By: #### 5 2291497, [id number] ####[facility] (DEFAULT)[address] [place] [address] 60796 UA Clarity CLEAR Normal CLEAR [facility] Comment on above: Performed By: #### 5 2646486, [id number] ####[facility] (DEFAULT)[address] [place] [address] UA Leuk Est TRACE Abnormal NEGATIVE [facility] Comment on above: Performed By: #### 5 7592826, [id number] ####[facility] (DEFAULT)[address] [place] [address] 29134 UA Nitrite Positive Abnormal NEGATIVE [facility] Comment on above: Performed By: #### 5 2933989, [id number] ####[facility] (DEFAULT)[address] [place] [address] UA pH 7.0 Normal 5-8 [facility] Comment on above: Performed By: #### 5 9552549, [id number] ####[facility] (DEFAULT)[address] [place] [address] UA Protein Negative Normal NEGATIVE [facility] Comment on above: Performed By: #### 5 2698898, [id number] ####[facility] (DEFAULT)[address] [place] [address] UA Spec Grav 1.020 Normal 1.001-1.035 [facility] Comment on above: Performed By: #### 5 [id number], [id number] ####[facility] (DEFAULT)[address] [place] [address] UA Urobilinogen 0.2 mg/dL Normal 0.2-1.0 [facility] Comment on above: Performed By: #### 5 [id number], [id number] ####[facility] (DEFAULT)[address] [place] [address] Urine Source Clean Catch Normal [facility] Comment on above: Performed By: #### 5 1150961, [id number] ####[facility] (DEFAULT)[address] [place] [address] Wet [place].on 08-22-2020 Wet Mount. Send results to Dr. Rojas vp training Negative for Trichimonas vaginalis. Negative for Yeast. Normal [facility] Comment on above: Performed By: #### 1 [id number] ####[facility] (DEFAULT)[address] [place] [address] Consent Formson 03-30-2020 Consent Forms [id number] 1 [id number] [place] [address] Provider Orderson 03-30-2020 Provider Orders [id number] 1 [id number] 03-25-2020 Coding Summary CODING DATE: 03/25/2020 FINAL [facility] STATUS: Home PAYOR: Commercial Insurance [...] Gely Slade Date Saved: 03/25/2020 09:00 am [facility] 2018 Novel Coronavirus (CoVI D-19), TERESE LCon 03-24-2020 SARS-CoV-2 (COVID-19) RNA TERESE+probe Ql (Unsp spec) Not detected Invalid Interpretation Code Not Detected [facility] Comment on above: Order Comment: [id number] [phone] Result Comment: This nucleic acid amplification test was developed and its performance characteristics determined by [employer]. Nucleic acid amplification tests include PCR and [...] this assay. Performed At: [facility] [address] [facility], [place] [id number] Iram Calvillo [facility] Ph:[phone] Performed By: #### 6 [id number] ####[facility] (DEFAULT)[address] [place] [address] Coding Summaryon 03-01-2020 Coding Summary CODING DATE: 03/01/2020 FINAL [facility] STATUS: Home PAYOR: Commercial Insurance [...] Date Saved: 03/01/2020 09:51 am Normal [facility] Vital Signs Date Time Vital Sign Value Performing Clinician Facility 03-27-2023 10:03-0500 Blood Pressure Location ELPIDIO HENSON [facility] 03-27-2023 10:03-0500 Body temperature 97.16 [degF] ELPIDIOIWONA HENSON [facility] 03-27-2023 10:03-0500 Diastolic blood pressure 84 mm[Hg] ELPIDIOIWONA HENSON [facility] 03-27-2023 10:03-0500 Heart rate 74 /min ELPIDIO NATIVIDAD [facility] 03-27-2023 10:03-0500 Systolic blood pressure 128 mm[Hg] ELPIDIO HENSON [facility] [place] Encounters Encounter Date Encounter Type Care Provider Facility Start: 10-08-2023 ambulatory Eamon Garcia acility:[facility] Start: 08-26-2023 End: 08-26-2023 ambulatory SUMEET VISHAL Not Available Start: 07-16-2023 End: 07-17-2023 ambulatory ELPIDIO HENSON Facility:[facility] [place] Start: 07-16-2023 End: 07-16-2023 Patient encounter procedure ELPIDIO HENSON [facility] Start: 06-06-2023 End: 06-06-2023 ambulatory KATLYN MITCHELL Not Available Start: 05-28-2023 End: 05-28-2023 ambulatory KATLYN PAULA Not Available Start: 05-02-2023 End: 05-03-2023 ambulatory Lowell MAYS Facility:[facility] [place] [place] Start: 05-02-2023 End: 05-02-2023 Patient encounter procedure Lowell MAYS [facility] Start: 04-23-2023 End: 04-23-2023 ambulatory SUMEET VISHAL Not Available Start: 04-18-2023 ambulatory Lowell MAYS Facility :CD:[id number] Start: 03-27-2023 End: 03-28-2023 ambulatory ELPIDIO HENSON Facility:[facility] Start: 03-27-2023 End: 03-27-2023 Patient encounter procedure ELPIDIO HENSON [facility] Start: 02-04-2023 ambulatory ELPIDIO HENSON Facility :[facility] Start: 11-26-2022 End: 11-26-2022 Emergency department patient visit [facility] Start: 01-23-2022 End: 01-23-[address] LOWELL ROJAS Facility:[facility] Start: 11-30-2021 End: 11-30-2021 ambulatory MEMO WOOD Facility:[facility] Start: 06-14-2021 End: 06-14-[address] EARNESTINE HUFF Facility:[facility] Procedures Date Procedure Procedure Detail Performing Clinician Start: 05-02-2023 Transurethral cystoscopy ELPIDIO HENSON Start: 05-06-2019 Hysterectomy ELPIDIO PENG Colonoscopy ELPIDIO HENSON Hysterectomy ELPIDIO NATIVIDAD Tonsillectomy ELPIDIO NATIVIDAD Immunizations Immunization Date Immunization Notes Care Provider Liat ruiz 07-08-2002 hepatitis B vaccine, adult dosage ELPIDIO NATIVIDAD [facility] 02-06-2002 hepatitis B vaccine, adult dosage ELPIDIO NATIVIDAD [facility] 01-07-2002 hepatitis B vaccine, adult dosage ELPIDIO NATIVIDAD [facility] 01-07-2002 measles, mumps and rubella virus vaccine ELPIDIO NATIVIDAD [facility] 09-03-1988 diphtheria, tetanus toxoids and acellular pertussis vaccine ELPIDIO NATIVIDAD [facility] 09-03-1988 Hib, unspecified formulation ELPIDIO NATIVIDAD [facility] 12-13-1986 diphtheria, tetanus toxoids and acellular pertussis vaccine ELPIDIO NATIVIDAD [facility] 12-12-1985 measles, mumps and rubella virus vaccine ELPIDIO NATIVIDAD [facility] 1985 diphtheria, tetanus toxoids and acellular pertussis vaccine ELPIDIO HENSON [facility] 1985 diphtheria, tetanus toxoids and acellular pertussis vaccine ELPIDIO HENSON [facility] 1985 diphtheria, tetanus toxoids and acellular pertussis vaccine ELPIDIO HENSON [facility] Payers Date Payer Category Payer Unknown [id number] 2022 Self-pay 2022 Unknown [id number] 1985 Unknown [id number] 2.16.84 [id number] 1985 Unknown [id number] 2.16.84 [id number] 1985 Unknown [id number] 2.16.84 [id number] 1985 Unknown [id number] 2.16.8 [id number] 1985 Unknown [id number] 2.16.84 [id number] 1984 Unknown [id number] 2.16.840 .[id number] 1985 Unknown [id number] 2.16.8 [id number] 1984 Unknown [id number] 2.16.8 40.1.087623.3.579.2.727 1984 Unknown [id number] 2.16.8 40.1.625531.3.579.2.727 1984 Unknown [id number] 2.16.8 40.1.326138.3.579.2.727 1984 Unknown [id number] 2.16.84 0.1.372611.3.579.2.1259 1984 Unknown [id number] 2.16.84 0.1.986774.3.579.2.1259 1984 Unknown [id number] 2.16.84 0.1.810652.3.579.2.1259 1984 Unknown [id number] 2.16.84 0.1.944492.3.579.2.1259 1959 Unknown [id number] 1959 Unknown [id number] Unknown [id number] 2.16.8 40.1.328747.3.579.2.531 Social History Date Type Detail Facility Start: 03-27-2023 Tobacco smoking status Never [facility] Sex Assigned At Female [facility] Functional Status Date Assessment Result Facility 05-02-2023 Functional Status N/A [facility] 03-27-2023 Functional Status N/A [facility] Clinical Notes 03-22-2020 to 05-02-2023 Note Date & Type Note Facility 05-02-2023 Note [id number] [facility] 05-02-2023 Note Cystoscopy with Uret hral Dilation [...] you have a fever over 100 degrees [facility] 05-02-2023 Hospital Discharg e instructions Patient Education [...] Up Care 04/30/2023 10:52:47 With:ELPIDIO HENSON Address: [address] [place] [address] [facility] (1) When:6 weeks Comments:Call for followup appointment [facility] 03-27-2023 [facility] Discharg e instructions Patient Education 03/27/2023 [...] including vitamins, herbs, eye drops, creams, and cufe-qvz-ckspdwc medicines. Any problems you or family members [...] provider tells you to take them. Taking cvkb-nfq-eifqsgu medicines, vitamins, herbs, and supplements. Tests You [...] Follow these instructions at home: Medicines Take abnv-vkb-heewwvb and prescription medicines only as told by [...] provider. Document Revised: 01/03/2022 Document Reviewed: 12/02/2020 Elsevier Patient Education 2022 [employer]. 03/27/2023 10:54:11 Overactive Bladder, Adult Overactive Bladder, [...] your health care provider. General instructions Take piae-ndg-xbgohso and prescription medicines only as told by [...] provider. Document Revised: 01/09/2021 Document Reviewed: 01/09/2021 [employer] Patient Education 2022 [employer]. Follow Up Care 02/04/2023 08:51:15 With:NATIVIDAD LOPEZ, ELPIDIO Rodriguez, URL Address: [facility] [address] [facility] [place] [address] [id number] When: Unknown Comments:sched cysto/poss UD [facility] 02-15-2021 Note Education Materials Infectious [...] Reviewed: 04/07/2020 Elsevier Patient Education ? 2019 [employer] COVID-19: How to Protect Yourself and Others Know how it spreads ? There is currently no vaccine to prevent coronavirus disease 2019 (COVID-19). ? The best way to prevent illness is to avoid being exposed to this virus. ? The virus is thought to spread mainly from hbvxkz-vj-dtxqxo. ? Between people who are in close [...] are not readily available, use a hand job printer apprentice that contains at least 60% alcohol. Cover [...] are at higher risk of getting very sick.www.cdc.gov/coronavirus/-ncov/rosu-riyfv-npbiqloyhbq/ jwlxph-eu-tvkmyv-risk.html Cover your mouth and nose with a [...] available, clean your hands with a hand job printer apprentice that contains at least 60% alcohol. Clean and disinfect ? Clean AND disinfect frequently touched surfaces daily. This includes tables, doorknobs, light switches, countertops, handles, desks, phones, keyboards, toilets, faucets, and sinks. www.cdc.gov/coronavirus/2019-nc ov/btqrjiv-typrcoe-pknz/disinfe yfnge-ionf-nlyw.html ? If surfaces are dirty, clean them: [...] provider. Document Revised: 01/14/2020 Document Reviewed: 11/12/2019 [employer] Patient Education ? 2019 [employer]. COVID-19 Frequently Asked Questions COVID-19 (coronavirus disease) is an infection that is caused by a virus (more content not included)... [facility] 08-22-2020 Note Education Materials Obstetrics and [...] this condition includes: ? Antibiotic medicine. ? Stzd-ewr-bdfxiau medicines to treat discomfort. ? Drinking enough [...] these instructions at home: Medicines ? Take oowf-yoc-xqpaous and prescription medicines only as told by [...] This i (more content not included)... [facility] 03-22-2020 Note Nasal swab performed without complication. Patient tolerated well. Education given. Patient verbalized understanding. [Electronically Signed on: 03/22/2020 14:52 EST] Millicent Galdamez RN [Verified on: 03/22/2020 14:52 EST] Millicent Galdamez RN [facility] Evaluation + Plan note No data available for this section [facility] Evaluation + Plan note Future Appointments Appointment Date:07/16/2023 09:00:00 AM Scheduled Provider:ELPIDIO HENSON PA-C Location:[facility] Appointment Type:URO Office Visit [facility] Hospital Discharge instructions No data available for this section [facility] Progress note No data available for this section [facility] Summary Purpose Family History No [...] DATE CREATED AUTHOR 02/28/[address] [facility] DATE CREATED AUTHOR AUTHOR'S ORGANIZ ATION 02/04/2022 [facility] DATE CREATED AUTHOR AUTHOR'S ORGANIZ ATION 11/26/[address] [facility] DATE CREATED AUTHOR AUTHOR'S ORGANIZ ATION 05/29/2023 [facility] EPIC DATE CREATED AUTHOR AUTHOR'S ORGANIZ ATION 07/18/2023 [facility] DATE CREATED AUTHOR AUTHOR'S ORGANIZ ATION 08/27/2023 [facility] EPIC DATE CREATED AUTHOR AUTHOR'S ORGANIZ ATION 10/09/2023 [facility] Patient Care team informatio n (unrecognized section and content) Personnel Name: Sumeet VÁSQUEZ DO Robson Address: Address: [address] [place] Montero, [address] Personnel Name: SAVANNAH RODRIGUEZ MD Address: Address: [address] [place] [address] Personnel Name: SAVANNAH RODRIGUEZ MD Address: Address: [address] [place] [address] FOR RECORDS PERTAINING TO PATIENTS WHO ARE [...] BE BASED ON THE PRIMARY CLINICAL RECORDS. [facility]. provides no warranty or guarantee of the accuracy or completeness of information in this document.
--- OUTSIDE RECORDS SUMMARY | 2023-11-05 08:22 | XMS_ITS | CCD ---
Author Organization [facility] Informat ion Partnership [facility] Care Team Providers Care Almond Blancher Operator Name Role Phone MEMO WOOD Admitting [...] Consulting Unavailable Sumeet VÁSQUEZ Primary Care Physician [phone] JENNIFER, SAVANNAH Underwood Primary Care Physician [phone] KATLYN MITCHELL Attending Unavailable SUMEET VÁSQUEZ Attending [...] levoFLOXacin; Translations: [Levaquin] Drug Allergy [facility] (4 sources) Bee/Wasp/Ant venom; Translations: [Bee Stings] Propensity to adverse reactions to substance Swelling (finding) [facility] (3 sources) levoFLOXacin; Translations: [levofloxacin] Drug Allergy [facility] (1 source) levoFLOXacin Drug Allergy [facility] Repository Medications Current Medications Medication Drug Class(es) [...] day(s), # 9 tab(s), Refills(s) 0, Pharmacy: [facility]/pharmacy #[id number], 157, cm, 03/27/23 10:11:00 EST, [...] afterwards, # 2 cap(s), Refills(s) 0, Pharmacy: [facility]/pharmacy #[id number], 157, cm, 03/27/23 10:11:00 EST, [...] te Episodic/Chronic Other aftercare (1 source) 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; Translations: [OTH RESIDENTIAL CURRENT DRUG THERAPY] Onset: 06-15-2021 Episodic Residual codes; unclassified (1 source) Acquired absence of both cervix and uterus; Translations: [ACQUIRED ABSENCE BOTH CERVIX AND UTERUS] Onset: 06-15-2021 Episodic Results Test Name Value Interpretation Reference Range Facility Consent for Procedure/Surger yon 05-02-2023 Consent for Procedure/Surgery [id number]# 1.00TIFF Normal [facility] Consent for Treatmenton 04-06 Consent for Treatment [id number]#1 .00TIFF Normal [facility] Inpatient Patient Summaryon 05-02-2023 Inpatient Patient Summary [place] [id number] Clinical Summary Person Information Name: TALHA DUVAL Age: 37 Years : 1985 Sex: Female PCP: SAVANNAH RODRIGUEZ MD Marital Status: Race: Other Race Ethnicity: Non- or Language: Nepali Visit Id: Visit Reason: OVER ACTIVE BLADDER, INCOMPLETE BLADDER EMPTY Speciality: Acuity: Enc Type: Outpatient Med Service: Surgery Arrival: 05/02/2023 12:09:38 Discharge: Dispo Type: Address: [address] [place] [address] [phone] Provider Notes: Diagnosis: Problems Active Ovarian cyst [...] Follow up: With: Address: When: ELPIDIO HENSON [address] [place] [address] [phone] [facility] (Nuvilex Within 6 weeks Comments: Call for followup appointment Type Location Start [facility] URO Office Visit [facility] EU Charisma 07/16/2023 9:00 AM 07/16/2023 9:15 AM Confirmed Patient Education Information: EU - Cystoscopy with Urethral Dilation Discharge Instructions (Custom) [facility] IntraOperative Documentson 1 07-03-2022 IntraOperative Documents [id number]# 1.00TIFF [facility] Main OR Intraoperative Recor don 05-02-2023 Main OR Intraoperative Record IntraOp Document Type FTURO Summary Primary Physician: Lowell MAYS MD Finalized Date/Time: 05/02/23 13:28:39 Pt. Name: TALHA DUVAL/Sex: 1985 Female Med Rec #: [id number] Physician: Lowell MAYS MD Financial #: [id number] Pt. Type: O Room/Bed: / Admit/Disch: 05/02/23 12:09:38 - Institution: Case Times FTURO Entry 1 Patient Times In Room 05/02/23 13:01:00 Out Room 05/02/23 13:30:00 Procedure Times Start 05/02/23 13:18:00 Stop 05/02/23 13:26:00 Anesthesia Times Last Modified By: Zeenat NICHOLAS, Shilpi Kye 05/02/23 13:27:17 Case Attendance FTURO Entry 1 Entry 2 Entry 3 Case Attendee DAVON CLAUDIO, Lowell Epperson RN, Rock Barron Role Performed Surgeon - Primary Travel Registered Nurse Icu - Primary Scrub - Primary Time In [...] Verified (If Participants Shilpi Epperson RN Applicable) Naay Cordova Adam A Time Out Complete 05/02/23 [...] 13:27 Shilpi Epperson RN 05/02/23 13:28 Normal [facility] Main OR Preoperative Recordo n 05-02-2023 Main OR Preoperative Record Holding Area Document Type FTURO Summary Primary Physician: Lowell MAYS MD Finalized Date/Time: 05/02/23 12:31:22 Pt. Name: TALHA DUVAL D.O.B./Sex: 1985 Female Med Rec #: [id number] Physician: Lowell MAYS MD Financial #: [id number] Pt. Type: O Room/Bed: / Admit/Disch: 05/02/23 [...] 12:29 Jeanette Rodríguez RN 05/02/23 12:31 Normal [facility] Operative Reporton Operative Report Patient: TALHA DUVAL Age: 37 years Sex: Female : 1985 Associated Diagnoses: None Author: Lowell MAYS MD Procedure Operative Information Details: Date/ Time: 05/02/2023 13:30:00. 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 Post-Op Dx: Same. Anesthesia [...] urine. The Urethra was dilated to: 30 Maltese w/ sounds, This causes minimal bleeding.. Devices Implanted: None. Removal: Cystoscope is removed, The patient tolerated it well. Postoperative Information Discharge: Patient is discharged home with antibiotic coverage, Follow up arranged, Follow up with Sally Henson PA-C in about six weeks. . Normal [facility] Comment on above: Result Comment: Elec tronically Signed By: Lowell MAYS MD\.br\Date and Time Signed: 05/02/23 13:35 EST Outpatient Surgery Discharge Instructionon 05-02-2023 Outpatient Surgery Discharge Instruction [place] [id number] Patient Discharge Instructions PERSON INFORMATION Name: TALHA [...] Follow up: With: Address: When: ELPIDIO HENSON [address] [facility]. D RAYSHAWN Lundberg [phone] [facility] (1) Within 6 weeks Comments: Call for followup appointment Type Location Start [facility] URO Office Visit [facility] CARLOTTA Zafar 07/16/2023 9:00 AM 07/16/2023 9:15 [...] to serve you. Thank you for choosing [facility] Provider Letteron 04-30-2023 Provider Letter April 30, 2023 TALHA DUVAL [address] [place] [address] : 1985 To Whom It May Concern, Please excuse above patient from work. Date of Illness: From: 04/19/23 To: 05/07/23 May Return to Work On: 05/07/23 Restrictions: None Sincerely, Lian Hummel CMA/ Dr Lowell Mays MD [facility] Comment on above: Other Comment: WRONG PT! Ambulatory Visit Summaryon 1 05-27-2022 Ambulatory Visit Summary TALHA DUVAL :1985 Visit Date:03/27/2023 Ambulatory Visit Instructions Your Diagnosis Feeling of incomplete bladder emptying OAB (overactive bladder) History of kidney stones Former smoker Ovarian cyst Tests Performed Urnls Dip Stick Auto w/o Microscopy POC 21896 Your Care Team Attending Physician - ELPIDIO [...] UD Where: [address] [place] [address] [phone] Medications What How Much When Instructions Unchanged busPIRone (busPIRone 7.5 mg oral tablet) Contact prescribing physician if questions or concerns Unchanged risperidone (risperidone 0.5 mg Tab) 1 Tablets By Mouth 2 times a day Contact prescribing physician if questions or concerns Test Results Urnls Dip Stick Auto w/o Microscopy POC 07636 (03/27/2023) Bilirubin Urine Dipstick - Negative Blood Urine Dipstick - Negative Glucose Urine Dipstick - Negative Ketones Urine Dipstick - Negative Leukocytes Urine Dipstick - Negative Nitrite Urine Dipstick - Negative Protein Urine Dipstick - Negative Specific Monroe Urine Dipstick - <=1.005 Urine Appearance Urine [...] including vitamins, herbs, eye drops, creams, and gxti-tem-svrufmj medicines. ? Any problems you or family [...] tells you to take them. ? Taking ehww-zcv-xisnvzi medicines, vitamins, herbs, and supplements. Tests You may have an exam or testing, such as: ? X-rays of the bladder, urethra, or kidneys. ? CT scan of the abdomen or pelvis. ? Urine tests to check for signs of infection. (more content not included)... Normal [facility] Consultation Noteon 03-27-20 Consultation Note [id number]# 1.00TIFF Normal [facility] Formson 03-27-2023 Forms [id number]#1. 00TIFF [facility] Patient Educationon 03-27-20 Patient Education Obstetrics [...] health care provider. General instructions ? Take rhzm-aja-vfxljmk and prescription medicines only as told by [...] monitor yo (more content not included)... 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 Sumeet Vásquez DO for urinary retention and hx of kidney stones. Last stone was passed was 2009 she thinks Never seen in our office before. CT AP wo con done 08/24/20 at [facility]. CT AP wo con and KUB done 06/14/21 at [facility]. US pelvis w/ transvaginal done 02/05/23 at [facility]. 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 Feeling of incomplete bladder emptying (R39.14: [...] tid x3days after cysto. Rx sent to [facility]. -Double void maneuvers Ordered: Body Mass Index (BMI) documented 3008F Body Mass Index (BMI) documented 3008F Current tobacco non-user 1036F Current tobacco non-user 1036F Depression Screening Negative 3352F Depression Screening Negative 3352F E&M of New Patient Moderate 45-59 Min 16828 Influenza immunization status assessed 1030F Influenza immunization [...] Ordered: Body (more content not included)... Normal [facility] Comment on above: Result Comment: Elec tronically Signed By: ELPIDIO HENSON PA-C\.br\Date and Time Signed: 03/27/23 11:32 EST\.br\Electronically Co-Signed By: Era Villegas\.br\Date and Time Co-Signed: 03/27/23 11:16 EST PAP ACOG PANEL 2: 30 to 65on 01-29-2022 . . Normal [facility] Comment on above: Result Comment: Perf ormed at: WB Performed By: #### 4 [id number] #### [facility] [address] [address] [address] Ab Sloan Age Gdln ACOG Testing 30-65 Normal [facility] Comment on above: Performed By: #### 4 [id number] #### [facility] [address] [address] [address] Ab Sloan DIAGNOSIS: Comment Normal [facility] Comment on above: Result Comment: NEGA TIVE FOR INTRAEPITHELIAL LESION OR MALIGNANCY. SHIFT IN CRISTIN SUGGESTIVE OF BACTERIAL VAGINOSIS. Performed at: WB Performed By: #### 4 [id number] #### [facility] [address] [address] [address] Ab Sloan HPV Aptima Negative Normal Negative [facility] Comment on above: Result Comment: This nucleic acid amplification test detects fourteen high-risk HPV types (16,18,31,33,35,39,45,51,52,56,58,59,66,68) without differentiation. Performed at: =G Performed By: #### 4 [id number] #### [facility] [address] [address] [address] Ab Sloan Methodology: Comment Normal [facility] Comment on above: Result Comment: This liquid based ThinPrep(R) pap test was screened with the use of an image guided system. Performed at: WB Performed By: #### 4 [id number] #### [facility] [address] [place] [address] Dr. Ab Sloan Note: Comment Normal [facility] Comment on above: Result Comment: The Pap smear is a screening test designed to aid in the detection of premalignant and malignant conditions of the uterine cervix. It is not a diagnostic procedure and should not be used as the sole means of detecting cervical cancer. Both false-positive and false-negative reports do occur. . Performed at: WB Performed By: #### 4 [id number] #### [facility] [address] [place] [address] Dr. Ab Sloan Performed by: Comment Normal [facility] Comment on above: Result Comment: Ashley Rider, Donkey Ride Operator (ASCP) Performed at: WB Performed By: #### 4 [id number] #### [facility] [address] [place] [address] Dr. Ab Sloan Specimen adequacy: Comment Normal [facility] Comment on above: Result Comment: Sati sfactory for evaluation. No endocervical component is identified. Performed at: WB Performed By: #### 4 [id number] #### [facility] [address] [address] [address] Ab Sloan VAGINITIS/VAGINOSIS DNA PROB [place] 01-24-2022 Betsy species Negative Normal Negative [facility] Comment on above: Performed By: #### V AGINT #### [facility] [address] [place] [address] Dr. Ab Sloan Gardnerella vaginalis Positive Abnormal Negative [facility] Comment on above: Performed By: #### V AGINT #### [facility] [address] [address] [address] Ab Sloan Trichomonas vaginalis Negative Normal Negative [facility] Comment on above: Performed By: #### V AGINT #### [facility] [address] [address] [address] Ab Sloan PROCALCITONINon 12-04-2021 Procalcitonin <0.02 Normal 0.00-0.08 [facility] Comment on above: Result Comment: . [...] are obtained. Performed By: #### P CTLC ####[facility] [address] [place] [address]Dr. Ab Sloan CBC AUTO DIFFon 11-30-2021 BASO # 0.0 103/ul Normal 0.0-0.1 [facility] Comment on above: Performed By: #### C BC #### [facility] [address] [place] [address] Dr. Ab Sloan Basophils/100 WBC (Bld) 0.5 % Normal 0.2-2.0 [facility] Comment on above: Performed By: #### C BC #### [facility] [address] [place] [address] Dr. Ab Sloan EO # 0.1 103/ul Normal 0.0-0.7 [facility] Comment on above: Performed By: #### C BC #### [facility] [address] [place] [address] Dr. Ab Sloan Eosinophils/100 WBC (Bld) 0.8 % Critically low 0.9-7.0 [facility] Comment on above: Performed By: #### C BC #### [facility] [address] [place] [address] Dr. Ab Sloan Erythrocyte distribution width (RBC) [Ratio] 12.2 % Normal 11.0-15.0 [facility] Comment on above: Performed By: #### C BC #### [facility] [address] [place] [address] Dr. Ab Sloan Hematocrit (Bld) [Volume fraction] 38.2 % Normal 36.0-48.0 [facility] Comment on above: Performed By: #### C BC #### [facility] [address] [place] [address] Dr. Ab Sloan Hemoglobin (Bld) [Mass/Vol] 13.1 g/dL Normal 12.0-16.0 [facility] Comment on above: Performed By: #### C BC #### [facility] [address] [place] [address] Dr. Ab Sloan IG # 0.01 10e3/ul Normal 0.00-0.03 [facility] Comment on above: Performed By: #### C BC #### [facility] [address] [place] [address] Dr. Ab Sloan IG % 0.2 % Normal 0.0-0.5 [facility] Comment on above: Performed By: #### C BC #### [facility] [address] [place] [address] Dr. Ab Sloan LYMPH # 1.9 103/ul Normal 1.2-3.8 [facility] Comment on above: Performed By: #### C BC #### [facility] [address] [place] [address] Dr. Ab Sloan Lymphocytes/100 WBC (Bld) 31.2 % Normal 20.5-60.0 [facility] Comment on above: Performed By: #### C BC #### [facility] [address] [place] [address] Dr. Ab Sloan MANUAL DIFF REQ NO Normal [facility] Comment on above: Performed By: #### C BC #### [facility] [address] [place] [address] Dr. Ab Sloan MCH (RBC) [Entitic mass] 31.0 pg Normal 26.7-34.0 [facility] Comment on above: Performed By: #### C BC #### [facility] [address] [place] [address] Dr. Ab Sloan MCHC (RBC) [Mass/Vol] 34.3 g/dL Normal 29.9-35.2 [facility] Comment on above: Performed By: #### C BC #### [facility] [address] [place] [address] Dr. Ab Sloan MCV (RBC) [Entitic vol] 90.5 fL Normal 81.0-99.0 [facility] Comment on above: Performed By: #### C BC #### [facility] [address] [place] [address] Dr. Ab Sloan MONO # 0.4 103/ul Normal 0.3-0.8 [facility] Comment on above: Performed By: #### C BC #### [facility] [address] [place] [address] Dr. Ab Sloan Monocytes/100 WBC (Bld) 6.2 % Normal 1.7-12.0 [facility] Comment on above: Performed By: #### C BC #### [facility] [address] [place] [address] Dr. Ab Sloan NEUT # 3.7 103/ul Normal 1.4-6.5 [facility] Comment on above: Performed By: #### C BC #### [facility] [address] [place] [address] Dr. Ab Sloan Neutrophils/100 WBC (Bld) 61.1 % Normal 43.0-75.0 [facility] Comment on above: Performed By: #### C BC #### [facility] [address] [address] [address] Ab Sloan Platelet mean volume (Bld) [Entitic vol] 12.0 fL Normal 9.5-13.5 [facility] Comment on above: Performed By: #### C BC #### [facility] [address] [address] [address] Ab Sloan PLT 198 103/ul Normal 150-450 [facility] Comment on above: Performed By: #### C BC #### [facility] [address] [address] [address] Ab Sloan RBC 4.22 106/ul Normal 4.20-5.40 [facility] Comment on above: Performed By: #### C BC #### [facility] [address] [address] [address] Ab Sloan WBC 6.1 103/ul Normal 4.0-11.0 [facility] Comment on above: Performed By: #### C BC #### [facility] [address] [address] [address] Ab Sloan CRPon 11-30-2021 CRP [Mass/Vol] mg/L Normal <=1.0 [facility] Comment on above: Performed By: #### B MP, CRP #### [facility] [address] [address] [address] Ab Sloan DRUG SCREEN RAPID (URINE)on 11-30-2021 AMP Negative Normal NEGATIVE [facility] Comment on above: Performed By: #### D TULIO, ERUR ####[facility] [address] [place] [id number]. Ab Sloan BAR Negative Normal NEGATIVE [facility] Comment on above: Performed By: #### D TULIO, ERUR ####[facility] [address] [place] [address]DrJasbir Sloan BUP Negative Normal NEGATIVE [facility] Comment on above: Performed By: #### D TULIO ERUR ####[facility] [address] [place] [id number]. Ab Sloan BZO Negative Normal NEGATIVE [facility] Comment on above: Performed By: #### Rosi ANTUNEZ ERUR ####[facility] [address] [place], [place] [address]Dr. Ab Sloan LESTER Negative Normal NEGATIVE [facility] Comment on above: Performed By: #### Rosi ANTUNEZ ERUR ####[facility] [address] [place], [place] [address]Dr. Ab Sloan CUT-OFFS SEE BELOW Normal [facility] Comment on above: Result Comment: AMP (Amphetamine): 500ng/mL, BAR (Barbituates): 200 ng/mL, BZO (Benzodiazepines): 150 ng/mL, BUP (Buprenorphine): 10 ng/mL, LESTER (Cocaine): 150 ng/mL, mAMP (Methamphetamine): 500 ng/mL, MTD (Methadone): 200 ng/mL, OPI (Opiates): 100 ng/mL, OXY (Oxycodone): 100 ng/mL, PCP (Phencyclidine): 25 ng/mL, PPX (Propoxyphene): 300 ng/mL, THC (Cannabinoids): 50 ng/mL, TCA (Trycyclic Antidepressants): 300 ng/mL Performed By: #### KB MASCORROR ####[facility] [address] [place], [place] [address]Dr. Ab Sloan DRUG CUT HEADER DRUG CLASS TEST SYSTEM CUT-OFF CONCENTRATIONS ARE FOLLOWS: Normal [facility] Comment on above: Performed By: #### Rosi ANTUNEZ ERUR ####[facility] [address] [place], [place] [address]Dr. Ab Sloan mAMP Negative Normal NEGATIVE [facility] Comment on above: Performed By: #### KB MASCORROR ####[facility] [address] [place], [place] [address]Dr. Ab Sloan MTD Negative Normal NEGATIVE [facility] Comment on above: Performed By: #### KB MASCORROR ####[facility] [address] [place], [place] [address]Dr. Yilan Sloan OPI Negative Normal NEGATIVE [facility] Comment on above: Performed By: #### D TULIO, ERUR ####[facility] [address] [place] [address]Dr. Yierin Sloan OXY Negative Normal NEGATIVE [facility] Comment on above: Performed By: #### D TULIO, ERUR ####[facility] [address] [place] [address]Dr. Ab Sloan PCP Negative Normal NEGATIVE [facility] Comment on above: Performed By: #### Rosi ANTUNEZ, ERUR ####[facility] [address] [place] [address]Dr. Ab Sloan PPX Negative Normal NEGATIVE [facility] Comment on above: Performed By: #### Rosi ANTUNEZ, ERUR ####[facility] [address] [place] [address]Dr. Ab Sloan TCA Negative Normal NEGATIVE [facility] Comment on above: Performed By: #### Rosi ANTUNEZ, ERUR ####[facility] [address] [place], [place] [address]Dr. Ab Sloan THC Negative Normal NEGATIVE [facility] Comment on above: Performed By: #### Rosi ANTUNEZ, ERUR ####[facility] [address] [place], [place] [address]Dr. Ab Sloan ER URINE PROFILEon 2 Bilirubin Ql (U) Negative Normal NEGATIVE [facility] Comment on above: Performed By: #### Rosi ANTUNEZ, ERUR ####[facility] [address] [place] [address]Dr. Ab Sloan Clarity (U) CLEAR Normal CLEAR [facility] Comment on above: Performed By: #### Rosi ANTUNEZ, ERUR ####[facility] [address] [place], [place] [address]Dr. Ab Sloan Color (U) LT. YELLOW Normal YELLOW [facility] Comment on above: Performed By: #### Rosi ANTUNEZ, ERUR ####[facility] [address] [place] [address]Dr. Ab QUILESAHD A micrscopic examination will be performed if indicated. Normal [facility] Comment on above: Performed By: #### Rosi ANTUNEZ, ERUR ####[facility] [address] [place] [address]Dr. Ab Sloan Glucose Ql (U) Negative Normal NEGATIVE [facility] Comment on above: Performed By: #### Rosi ANTUNEZ, ERUR ####[facility] [address] [place] [address]Dr. Ab Sloan Hemoglobin Ql (U) Negative Normal NEGATIVE [facility] Comment on above: Performed By: #### Rosi ANTUNEZ, ERUR ####[facility] [address] [place], [place] [address]Dr. Ab Sloan Ketones Ql (U) Negative Normal NEGATIVE [facility] Comment on above: Performed By: #### Rosi ANTUNEZ, ERUR ####[facility] [address] [place], [place] [address]Dr. Ab Sloan LEUKOCYTES Negative Normal NEGATIVE [facility] Comment on above: Performed By: #### Rosi ANTUNEZ, ERUR ####[facility] [address] [place], [place] [address]Dr. Ab Sloan Nitrite Ql (U) Negative Normal NEGATIVE [facility] Comment on above: Performed By: #### Rosi ANTUNEZ, ERUR ####[facility] [address] [place], [place] [address]Dr. Ab Sloan pH (U) 6.0 [pH] Normal 5-9 [facility] Comment on above: Performed By: #### Rosi ANTUNEZ, ERUR ####[facility] [address] [place], [place] [address]Dr. Ab Sloan SPEC GRAVITY 1.020 Normal 1.005-<=1.025 [facility] Comment on above: Performed By: #### Rosi ANTUNEZ, ERUR ####[facility] [address] [address]Dr. Babitaerin Sloan UA PROTEIN Negative Normal NEGATIVE/ TRACE [facility] Comment on above: Performed By: #### Rosi ANTUNEZ, ERUR ####[facility] [address] [place], [place] [address]NiJasbir Sloan UR MICRO IND NOT INDICATED Normal [facility] Comment on above: Performed By: #### D TULIO, ERUR ####[facility] [address] [place], [place] [address]WzJasbir Sloan Urobilinogen Qn (U) 0.2 {Lamonte'U}/dL Normal 0.2 - 1. 0 [facility] Comment on above: Performed By: #### D TULIO, ERUR ####[facility] [id number] Sloan PROF CHEM 8 (BAS METB)on Anion gap [Moles/Vol] 11.6 mmol/L Normal [facility] Comment on above: Performed By: #### B MP, CRP #### [facility] [address] [address] [address] Ab Sloan Calcium [Mass/Vol] 8.8 mg/dL Normal 8.5-10.1 [facility] Comment on above: Performed By: #### B MP, CRP #### [facility] [address] [address] [address] Ab Sloan Chloride [Moles/Vol] 104 mmol/L Normal 98-107 [facility] Comment on above: Performed By: #### B MP, CRP #### [facility] [address] [address] [address] Ab Sloan CO2 [Moles/Vol] 26.9 mmol/L Normal 21.0-32.0 [facility] Comment on above: Performed By: #### B MP, CRP #### [facility] [address] [address] [address] Ab Sloan Creatinine [Mass/Vol] 0.91 mg/dL Normal 0.55-1.02 [facility] Comment on above: Performed By: #### B MP, CRP #### [facility] [address] [address] [address] Ab Sloan EGFR-AF ITALIAN >60 Normal >=60 [facility] Comment on above: Performed By: #### B MP, CRP #### [facility] [address] [address] [address] Ab Sloan EGFR-NON AF ITALIAN >60 Normal >=60 [facility] Comment on above: Performed By: #### B MP, CRP #### [facility] [address] [address] [address] Ab Sloan Glucose [Mass/Vol] 105 mg/dL Normal 74-106 [facility] Comment on above: Performed By: #### B MP, CRP #### [facility] [address] [address] [address] Ab Sloan Potassium [Moles/Vol] 3.5 mmol/L Normal 3.5-5.1 [facility] Comment on above: Performed By: #### B MP, CRP #### [facility] [address] [address] [address] Ab Sloan Sodium [Moles/Vol] 139 mmol/L Normal 136-145 [facility] Comment on above: Performed By: #### B MP, CRP #### [facility] [address] [address] [address] Ab Sloan Urea nitrogen [Mass/Vol] 14.0 mg/dL Normal 7.0-18.0 [facility] Comment on above: Performed By: #### B MP, CRP #### [facility] [address] [address] [address] Ab Sloan Urea nitrogen/Creatinine [Mass ratio] 15.4 mg/mg Normal [facility] Comment on above: Performed By: #### B MP, CRP #### [facility] [address] [address] [address] Ab Sloan CBC AUTO DIFFon 06-14-2021 BASO # 0.0 103/ul Normal 0.0-0.1 [facility] Comment on above: Performed By: #### C BC #### [facility] [address] [address] [address] Ab Sloan Basophils/100 WBC (Bld) 0.6 % Normal 0.2-2.0 [facility] Comment on above: Performed By: #### C BC #### [facility] [address] [place] [address] Dr. Ab Sloan EO # 0.2 103/ul Normal 0.0-0.7 [facility] Comment on above: Performed By: #### C BC #### [facility] [address] [place] [address] Dr. Ab Sloan Eosinophils/100 WBC (Bld) 3.1 % Normal 0.9-7.0 [facility] Comment on above: Performed By: #### C BC #### [facility] [address] [place] [address] Dr. Ab Sloan Erythrocyte distribution width (RBC) [Ratio] 12.7 % Normal 11.0-15.0 [facility] Comment on above: Performed By: #### C BC #### [facility] [address] [place] [address] Dr. Ab Sloan Hematocrit (Bld) [Volume fraction] 36.9 % Normal 36.0-48.0 [facility] Comment on above: Performed By: #### C BC #### [facility] [address] [place] [address] Dr. Ab Sloan Hemoglobin (Bld) [Mass/Vol] 12.1 g/dL Normal 12.0-16.0 [facility] Comment on above: Performed By: #### C BC #### [facility] [address] [place] [address] Dr. Ab Sloan IG # 0.01 10e3/ul Normal 0.00-0.03 [facility] Comment on above: Performed By: #### C BC #### [facility] [address] [place] [address] Dr. Ab Sloan IG % 0.2 % Normal 0.0-0.5 [facility] Comment on above: Performed By: #### C BC #### [facility] [address] [place] [address] Dr. Ab Sloan LYMPH # 2.1 103/ul Normal 1.2-3.8 [facility] Comment on above: Performed By: #### C BC #### [facility] [address] [place] [address] Dr. Ab Sloan Lymphocytes/100 WBC (Bld) 40.2 % Normal 20.5-60.0 [facility] Comment on above: Performed By: #### C BC #### [facility] [address] [place] [address] Dr. Ab Sloan MANUAL DIFF REQ NO Normal [facility] [place] [facility] Comment on above: Performed By: #### C BC #### [facility] [address] [place] [address] Dr. Ab Sloan MCH (RBC) [Entitic mass] 30.0 pg Normal 26.7-34.0 [facility] Comment on above: Performed By: #### C BC #### [facility] [address] [place] [address] Dr. Ab Sloan MCHC (RBC) [Mass/Vol] 32.8 g/dL Normal 29.9-35.2 [facility] Comment on above: Performed By: #### C BC #### [facility] [address] [place] [address] Dr. Ab Sloan MCV (RBC) [Entitic vol] 91.6 fL Normal 81.0-99.0 [facility] Comment on above: Performed By: #### C BC #### [facility] [address] [place] [address] Dr. Ab Sloan MONO # 0.4 103/ul Normal 0.3-0.8 [facility] Comment on above: Performed By: #### C BC #### [facility] [address] [place] [address] Dr. Ab Sloan Monocytes/100 WBC (Bld) 7.5 % Normal 1.7-12.0 [facility] Comment on above: Performed By: #### C BC #### [facility] [address] [place] [address] Dr. Ab Sloan NEUT # 2.5 103/ul Normal 1.4-6.5 [facility] Comment on above: Performed By: #### C BC #### [facility] [address] [address] [address] Ab Sloan Neutrophils/100 WBC (Bld) 48.4 % Normal 43.0-75.0 [facility] Comment on above: Performed By: #### C BC #### [facility] [address] [address] [address] Ab Sloan Platelet mean volume (Bld) [Entitic vol] 11.1 fL Normal 9.5-13.5 [facility] Comment on above: Performed By: #### C BC #### [facility] [address] [address] [address] Ab Sloan PLT 186 103/ul Normal 150-450 [facility] Comment on above: Performed By: #### C BC #### [facility] [address] [place] [address] Dr. Ab Sloan RBC 4.03 106/ul Critically low 4.20-5.40 [facility] [place] [facility] Comment on above: Performed By: #### C BC #### [facility] [address] [place] [address] Dr. Ab Sloan WBC 5.2 103/ul Normal 4.0-11.0 [facility] Comment on above: Performed By: #### C BC #### [facility] [address] [place] [address] ABD/PELVIS WO CONon [...] TIBURCIO OROZCO Date: 2021-06-14 10:26 Normal [facility] URINE PROFILEon 2 Bilirubin Ql (U) Negative Normal NEGATIVE [facility] Comment on above: Performed By: #### E RUR #### [facility] [address] [place] [address] Dr. Ab Sloan Clarity (U) CLEAR Normal CLEAR [facility] Comment on above: Performed By: #### E RUR #### [facility] [address] [place] [address] Dr. Ab Sloan Color (U) YELLOW Normal YELLOW [facility] Comment on above: Performed By: #### E RUR #### [facility] [address] [place] [address] Dr. Ab MARCUM A micrscopic examination will be performed if indicated. Normal [facility] Comment on above: Performed By: #### E RUR #### [facility] [address] [place] [address] Dr. Ab Sloan Glucose Ql (U) Negative Normal NEGATIVE [facility] Comment on above: Performed By: #### E RUR #### [facility] [address] [place] [address] Dr. Ab Sloan Hemoglobin Ql (U) Negative Normal NEGATIVE [facility] Comment on above: Performed By: #### E RUR #### [facility] [address] [place] [address] Dr. Ab Sloan Ketones Ql (U) Negative Normal NEGATIVE [facility] Comment on above: Performed By: #### E RUR #### [facility] [address] [place] [address] Dr. Ab Sloan LEUKOCYTES Negative Normal NEGATIVE [facility] Comment on above: Performed By: #### E RUR #### [facility] [address] [place] [address] Dr. Ab Sloan Nitrite Ql (U) Negative Normal NEGATIVE [facility] Comment on above: Performed By: #### E RUR #### [facility] [address] [place] [address] Dr. Ab Sloan pH (U) 6.0 [pH] Normal 5-9 [facility] Comment on above: Performed By: #### E RUR #### [facility] [address] [place] [address] Dr. Ab Sloan SPEC GRAVITY >=1.030 Abnormal 1.005-<=1.025 [facility] Comment on above: Performed By: #### E RUR #### [facility] [address] [place] [address] Dr. Ab Sloan UA PROTEIN Negative Normal NEGATIVE/ TRACE [facility] Comment on above: Performed By: #### E RUR #### [facility] [address] [place] [address] Dr. Ab Sloan UR MICRO IND NOT INDICATED Normal [facility] Comment on above: Performed By: #### E RUR #### [facility] [address] [place] [address] Dr. Ab Sloan Urobilinogen Qn (U) 0.2 {Lamonte'U}/dL Normal 0.2 - 1. 0 [facility] Comment on above: Performed By: #### E RUR #### [facility] [address] [place] [address] Dr. Ab Sloan PROF CHEM 8 (BAS METB)on Anion gap [Moles/Vol] 10.3 mmol/L Normal [facility] Comment on above: Performed By: #### B MP #### [facility] [address] [place] [address] Dr. Ab Sloan Calcium [Mass/Vol] 8.8 mg/dL Normal 8.4-10.2 [facility] Comment on above: Performed By: #### B MP #### [facility] [address] [address] [address] Ab Sloan Chloride [Moles/Vol] 104 mmol/L Normal 98-107 [facility] Comment on above: Performed By: #### B MP #### [facility] [address] [address] [address] Ab Sloan CO2 [Moles/Vol] 28.8 mmol/L Normal 22.0-30.0 [facility] Comment on above: Performed By: #### B MP #### [facility] [address] [place] [address] Dr. Ab Sloan Creatinine [Mass/Vol] 0.79 mg/dL Normal 0.52-1.04 [facility] Comment on above: Performed By: #### B MP #### [facility] [address] [place] [address] Dr. Ab Sloan EGFR-AF ITALIAN >60 Normal >=60 [facility] Comment on above: Performed By: #### B MP #### [facility] [address] [place] [address] Dr. Ab Sloan EGFR-NON AF ITALIAN >60 Normal >=60 [facility] Comment on above: Performed By: #### B MP #### [facility] [address] [place] [address] Dr. Ab Sloan Glucose [Mass/Vol] 93 mg/dL Normal 74-106 [facility] Comment on above: Performed By: #### B MP #### [facility] [address] [address] [address] Ab Sloan Potassium [Moles/Vol] 4.1 mmol/L Normal 3.4-5.0 [facility] Comment on above: Performed By: #### B MP #### [facility] [address] [place] [address] Dr. Ab Sloan Sodium [Moles/Vol] 139 mmol/L Normal 137-145 [facility] Comment on above: Performed By: #### B MP #### [facility] [address] [place], [place] [address] Dr. Ab Sloan Urea nitrogen [Mass/Vol] 13.0 mg/dL Normal 7.0-17.0 [facility] Comment on above: Performed By: #### B MP #### [facility] [address] [place], [place] [address] Dr. Ab Sloan Urea nitrogen/Creatinine [Mass ratio] 16.5 mg/mg Normal [facility] Comment on above: Performed By: #### B MP #### [facility] [address] [place], [place] [address] Dr. Ab Sloan XR KUB 1 VIEWon [...] by: REAL RIDER Date: 2021-06-14 09:08 Normal [facility] Coding Queryon 02-25-2021 SARS-CoV-2 (COVID-19) RNA TERESE+probe Ql (Unsp spec) Can you please review the patient's COVID results and revise the diagnosis if you feel appropriate? Thanks. [Electronically Signed on: 02/27/2021 18:06 EDT] SHOLA HONG [Verified on: 02/27/2021 18:06 EDT] SHOLA HONG [Transcribed on: 02/25/2021 13:31 EDT] [facility] Coding Summaryon 02-25-2021 Coding Summary HTMLBase 64 KapfjrboIQj5nIj+PGhlY WQ+YV1JAOLkI48ahHCknF 1OA5gSYA3NEPZOPAAFNL9 PTE4waID2HTwnZ2AmmaDp HqrlzZHnKY42STk4KUW1y CkzWPsfnE3opOBfL1m6Xd XjCG36pU49SEqtTWMhHfS 3LjZpbjsgbWFy X3yvWeAbpEItZqt+PHRhY mxlIHdpZHRoPScxMDAlJy UnbUuvPR1gSs6zJNYiUGK vbGxhcHNlOiBj w7mcFMOoERvmDW9crSmtP 6QjgEE3HQDtv1o7Rw18fV I+QSQqUOW9iRbqBCcqk77 2PyGva0baMQJ8 jFFwCWocPJC1Y82pa4Y3P TZqYQKdHOV3fPQ6hS1zrB jgsqnkH0WknWOcKzU4NYA 7iFMwiQ3nkVkn tgdwwS5nDnk+V67JST9XL HNFEK4NXqs7B9OkUmtltW I+LN22HJIqZP15lYUixSG rb9dhtZc3RaQx PGSjBYO9oFaiZQaql9NnF YPvA96iwTFxz2U2FTBftU grkAUnJnZapTP2xL2wGYd ovzazy7ifsdil Llgph0hbok77yT11O52eG TedBISwUEG2EAYuMJXbfH lwlq3kbV7mVk3+HKjzw9e hy8tdoPx1AsPl SBAzgyWkxGytBOD0e5GtC m31D0OdtKqnb7FzAdq7ak 32rSPck2P1oUG3LFnbAMC rsS4jIUxjZbL9 TRAiNzIhhK40mBTgYSarG g5fxIlgxAwjFC4nXPKkzi wqGSWbfN9eKXCmhRMnePa wZQ1sDFMezwqg q591RpReLNB1GLRraMMkS 9YzuU3dXgKqCTMsYMIfG3 NkeUEuCDjtE889ZHtkYfI 5ZGMtojWfF8Rj COUhoLopUfF0s8J7Tz1Hj 8JveraeYOP6LNkbXXHmJq IhEzFeAwR0B3UxTws7HVP dwKqoTN0lJ9Cx EMUnposxxfeyfXA6FSEuN REapW02qWFgXGeeKz8kj3 G8u768DJOmVWPqtM10Ns1 udDogMTBwdCBU iH0evbstj5tlvlotDgFvP DSnHMu0HHk0XCHjeUtePs DwVIN4PjR4LZV3uJCmaP1 hlXfatvyymK9z Oyc+N92ukB5tVYA9OVO8h keyZXDrufYjMC09YC90I6 RyPjwvdGFibGU+PGRpdiB pgMvgUL7hOsEe d0ywn4GsWHtoD5YqNWOkZ MrpTkp1KZRvXSL6uTZ6bV 6cMFXmUQimj1X5wKI9R4A tdgDudy1yy6kr YIYkECzcT61llQMzz9B0H SLodWF6GILkwFdzBsBmmI 93Oyc+BNSvcQwbd5ZyBwq tm3plf5cpnMv7 KoZzRTYfmxByjJlfACM8o 6RzAo80H67gXHkpVGBqYN JxOBZnWZSouNyyhj9grS9 wIi8+PGNvbCB3 rXT3vJ0dHROsXfP8UMnuD 926YtNauEQiMplug6lxw3 glkKe0XmDsEOFncnJllMd mXAQ9u4PiBz56 U64gDQupFIPiOHAzMJFwW LSrnAdruf8teJ4xMs0+PC 0ak7dgne65hY66gAZ+PHR jSGN7rNmtYImt MEIcaG1tLQdiOpM1THBkA aMznC48jNRkWEzoDs8aoY nxvCztTO6uECOcbvuwk24 2KmSzj2yyQIVw iXGxHGnlDKZ8H10vg0Q5H MBiRWVtGOG6wLU0jZ5zkQ lnbjogbGVmdDsgdmVydGl hPFfdXSpzL988 IHRvcDsnPlBhdGllbnQgT dKaAIy3U5DqKyr7WAUbwN zpWB2wjHYoCWfuFo6swHu ueYbuZP3oDGEx ykxny773SoBhy6zpEDLrg RWaFAfiPIB2Y40zk8J4XF XrMMPcXPE1lEB5vL6adYd nbjogbGVmdDsg ysNqfMqyQGmsYWbdQ379F HRvcDsnPkJpcnRoIERhdG O2NG29QD94fMObx3U7fRX 6Z8HhCHKqhquy ouskwBF6JGPmXFFhwG03P m7nvSgbZu6mFOMbVTO1EW LzvNCyG6LvbX4sZwUjIJL vZCTcK2AogWTa QCigP214QAfvUkN0EONep yBzD5SsEWFzzZbjPsU2f1 A8Pw3GW7V5EF03NH25aON co1I7mOH9A3Xm PBXohhlpqrlojQV2YFOpD NLzaV50Ht9okXlzAc9lZW YuFRO6SNQzzUMsN5AvyO0 yOiAjMDAwMDAw B9KyxZEiENswO815NMkpV qM4FPXpsdHxF2WuFEDfkY wzFiT6t9Q5Yc0WZVx9MI5 6SA04mAHzn3H7 xFL4Y2IkOYZonhlkxepah HC2RVDrIUQzdJ78Sp6umK swWp3uKVRdKHJ8VGQxkKS yN8IvvX7yKpVb LKTpIGCmQ9YefQVuVTkuP 537GHblXyL2BZGsdyNyT0 AuXLSuzPzjVjM9n7I1Vy4 TBXZuOC79CHL4 qIQ5OB48WD97W4YeGtqyz GFibGU+PHRhYmxlIHdpZH RoPScxMDAlJyBzdHlsZT0 tNx7fMIKfHACv aOlvpSKvPtGbc1tmLNJsF XozUV2gyInmE3SdzDC0ON Ihg4u4Xj22K06vK5XcoMQ +RGZauUU0eQN8 eI9oAxNiYaT0SBugL990A fTnzFCdWtbnp9zgu6arrS l5IfJ3ALHmomPzbVicDYK 9k8AhPb77I28w IHdpZHRoPSIxNSUiIHZhb Rjqax1iyB6kOw2+PGNvbC F3kSE8lO3jGkWzUeE1SSn pX918QtVmdPAd Xkpzg2yqp8xgvGs4GuVhU WEwflVqnHgsYLE2k9LcYd 25W8HvsPsau9SwBvv3ep0 5bILya8B6qJU3 Z1UdZMBdokxjxVOmjAgdM E9oJHDsjdztCLGoxW0gYG LkL8s4PlGwQiZ0UNkdZ3P pcyA3MYHypUEm MJmaDOZ6L35un7M6CYOrJ BOhKGY4lRW9iE9buRnibu ogbGVmdDsgdmVydGljYWw fUAhuZ318KSHg cVrtVHYfdL9aLDQczUVbr HazUS5eTFBektgdAlmORT wsIFNIQVdOVEUgTUFSSUU 6V7GpAbg5COIf bAulHB6trXJhDFbyTt6gk UzmqOlyEU5rZQRjwhrrWT KbpP6wIQIpyENofKtlVU0 oIEZwdfkbt532 OmCuKNE5IPGmgOGdM1Mnc P8tReJyLXUaRGRkO2EkmF GwTXiwM904ENjxHgM6VEJ jafXeJ4JkUZFc wCfkAzC9h2N4Xl4gXE7vY d4fFPx2WR09WV09fOMea2 H2tIG3G8ZxIYVdbdixohf zqKT0WAQrOPYb aG27tVTeMNnbZx5ge4D8v 466HAVbAGQofW58Oo5ezW upVQIboLMYkP6vviaee6c vcjogIzAwMDAw TAj2LAd8FZQkyIbnVuWmH EP0VwE4ZXN2cVZxhF7plI dcbnwocX9kXem+MzYgWWV trzC3B6PgAcr9 SHAtvOxuOF8wkILnSMktV g7eoZhzfEnbLQ4gXDLbsy dgYNTceT3bNAEkiKZnjOv lLX5iYHPzxdhf s460PcEoBAI0BWGtxIYgP 0KvvH3tUnViYCIkFFNiW3 OadWUaANmlU444OUmgWvO 1SIWhegJaD2Um YZCikHfuMeP3j6G7Zc8GV R8JDNG6M9IqQyk3XURaiJ ozNI3bzCHsUUljVh0dmUm bfQkdRR5oJUJy gdnvUEAecO2dTKIrdAOxw JqzDX7nRGPauaptx717Et PlEQT4OVFjiWEbH7RyjA0 yOiAjMDAwMDAw N6JooAZxUIxjO497PZpxV tS5METkefFgU3LmIVUwjH bmRkV2b4W5Ys0ROHtraHB +DJ66mu81X4Zr ZrwgTvz3EPPpDBJ0iCQ4c L9ePPRyBOkap2E9mJN0C0 KeztAusd1yr0jdRNYaHMt jW81mhIMho5R4 SGJjwRO3QZFxxBsmXiSmw G93Oyc+OFHfuEmwa9BhOk uvx7fvp0scjPk9FhGeZMC gdmFsaWduPSJ0 c1OzBi96B41tTQtpVKUjC CDcUDSjKULyzNaxon8ckU 9wIi8+QNXkoYN8tTZ8cC4 pIoNzAzX0MLnz D114QgTgcUUyUptbb9xjq 2lliFa7WoViFQKpynYkcQ bwETU9h4MlIo30E1UxjPr ey2AqXbn8br48 pMUnd9X6kKP1C7PxWYXdi puxdABqhWtlVV0sZQPkwz woJESdkY4pZCBoE4q7YtR jNyB6MRnoG1Fo riF9QRBrsZGuJHSpzPYQz P1ursegd6yiqhjaCfWyKR PwNQg1XXu4PISmoTatAzW aVMT8JwS7FCO7 cAPzfY9apTawsedgoL9iU yc+FAm1k3exxZZqOO5svP Z3XE21ZT14lUSoj2R8yYY 7O5PrVCDbeikh qienqGH8BQCxCVJvuO55R t2hlNacMg9pMZLtICR1MP RwaNWbB8RggC9mKaFkZXI lLADwH2OkkCGa DVlbA062NUjlIlG9REHum oZzX2SpVHJkwFurHeX8t3 G5Dq0JBA44FO97KJ21tJE ey8S6fPZ7C1Ow XYHtaslnkwyisHE8ILGtS YDhlQ82Oz3ayBbjQk2hGI FeYJH9FLYzwKFyI4JpiD2 yOiAjMDAwMDAw G2PjbWFsKAddE659RNwcX dL2NOOauoAgK5RxKJFkdP diQdH1y7O0Fw4WRr19IA0 3KW01xVYxh8O5 kBO3V7WrLSNcigvygwexm ZW2QBZeDXDdoW19Do8njE axAx0yTMBxMTB3WSPfuOT oF2DpnE4jAiJp KBCdOHUhJ3LdoOWdUNreH 864WLtvMdQ9ZUSenwObE7 ZbRQNawTfvVzC9l8T4Uk4 QQXklfos4I9Df PjwvdHI+BQ47IEIgWZ41r XZulAJvb0tugEg2HxRhRZ RjEAS6aEvcPOhmy2GlYAW bG73hvKTul5M6 IGN (more content not included)... [facility] Coding Summary HTMLBase 64 IxrubwbtAJf3oQu+PGhlY WQ+QG6ITSSlA07kuFTzmM 2OE1jMIO4GONEUTWMIDL8 WKN9tbBK4MNskG7YjdsKv PgwdqGHwMQ11XYo9XGX3h PijYUwuwM2ilLMlF2v8Iq DtRU18eX01EQhoLWTuPaU 3LjZpbjsgbWFy M3xtZpRdkOLjFez+PHRhY mxlIHdpZHRoPScxMDAlJy DsxYcpYX4wEe6gOVGtFQX vbGxhcHNlOiBj o6krPDYaPOfgHP4yeJjmW 9CxhOQ9MNVam0j8Bw58aA I+KTBtPWF2kYyzVNefr37 8MgAui5yaLVC4 iNXpXSblOMZ2L58cq9D9C RLhPTDlZBU7tRZ6eL3dvX uempnpO0WwaEXtZzC4MBQ 6tGPpdR8uaPnz bhfocF8bCra+D20UWG3HW OUUIT0GNzn7F1FlMoiqaW I+YF72NGTjOZ93lDVjpOU pt8kzrXg2DiDu CMRhVVR2vMwmWOeeg5YmE LZvG46xjXEst3P7BDEpiT dbrQHrFzLwgIQ1dX3aCRt ttpjgb7cpjswy Gyqad6pyop34lF95R35lC BqpASOuPFM8KMYhRBJstG jdfy5xbX8uDm3+LJnry0p ye0aklDl7WsWu ZYDhvcUwbMkdDLD3r7PyF m86T5TnaCqri4OyOte8da 88aWTwq7L1jIN2OJixMRQ bwB8uPDjxYmW3 WEXqDjUsvK24aQPjIVkrR i0huYpfjRgdOR6xSRTuwc sxJYGaeP3oTXOblQGzdYm oDF8oVZLjvrgf w264XlJgDVN2ZKQvlTCfF 7BtrS4fEhZuHUBaHAGiD9 NgcCHuJVsxX868DEujKvR 0TVVumcUpZ8Mc PJHarHyqKdI7f9L3Yx8Bc 2KcqgqmRJC1DTyhCCEgMt MbYxShPcJ2I7JfBqf1HTC qeOdwTW2gY4Fa RZVjedtbotopjDC6KUGxE QBjfY24vJLsRQnrFl0we8 M7b329ODGwXDGonY57Rc7 udDogMTBwdCBU kT9jnwpmm1dcflttRoBaL UWxTKq0PLb1AMDseDmfZj ZzHRT3KcT8GSG1sVGyoQ9 zmLejzpmgbZ1i Oyc+W87feJ7jBSO0UQS8b aymBMVdysHyRX11GL45G7 RyPjwvdGFibGU+PGRpdiB jmEhpWE5qStZd i3pmr4QkIRwrN9AeAEGiB AuuPhx5MJMjWCJ6mLA6qQ 6pUZHqAMqjg8C1uBN2Y4T ordOupc0wp0ir MZGiSRoyJ76mfHZmq1X8H VSnwFJ0KKAtlOagJoCrcV 93Oyc+UXHopGyyh5DcRit mr5qev9cuxMx4 CyOmSANoogPdpQdbREV1g 8GrAb40N41zTYtuKCQwIP AxNBWxFPHmiLgfev2aiK4 wIi8+PGNvbCB3 cBK2fB5vJJHiBgF0YMqtB 052WbHdvAQlVsoar9xxb3 kmaUe7LrSpNJHmmcPiwWm mPQW3x7WaOi73 Z55vONedHIXzTBQxFYTrO VQhvYhfjk3qxM4lAz2+PC 1pb0rzmq29dS97qQH+PHR sJWX3oQfvFApt OVTjuV1kCPabZsI7KAApY jBbpO04bGMcCYhkPq5hrC rmfPnhUM0nVGQautrak12 1AuKly3cxALOy tXGaLPypPCD1H29wz3F7X YGuREKpSEN9qPA4qP1nwG lnbjogbGVmdDsgdmVydGl yENznFOfwP537 IHRvcDsnPlBhdGllbnQgT iCpFHs5D3NzQyw9RHQggA clYD2wcICiNHfxFa3reDu tbVvlNZ3sPUKj fofmd010EsLrx1gtXNWsa ZCsMHrpOXZ1Z95po2S1VW YsBFQsWJK2bRK7rR6gaOb nbjogbGVmdDsg ntVrzLsyTFepMPxdZ086I HRvcDsnPkJpcnRoIERhdG Q4AD36VV78sELdw2C1cGZ 2Q6XhECTgrhvz pvckfZA5ULCaIYEjrW11Y t1bvEvmGy4eANTxNQS0ZT IrrIEiB5HfgM9jHdEjEAB uUESgD1FsyEPl VGtdC677DCjhUrZ5JWYfi lViL8PwMIRxhIsnLgZ4r6 J6Aj5ED0P0FA88HP82iOH nm4S1lOH3D0Gk QERbsecgngmgkPZ8TYQjW HEpjE00Dm8hiYkeNs1nCC PrDGH0DFRqeDEpO8AzfD5 yOiAjMDAwMDAw E3CwjCMhNKtmB260UEmbN aB4FVXjsyFiM9FpPCGboB zdCpO5n1Z2Jl5DJSh9GW6 0GE53kPTrk8P7 rCS0A6WkYAEahmfakkirg WI5KUYzBLGdmJ57Wj8jaK vmYo6wJOAhHRY0IUNymZO uU8JldV8bGeXx WIZtHCYpQ1MsaIPxZHypC 451BGszLmS8BVLafaViE5 TaPGQvdKivFsE0w2C3Oe5 DVPFfYX41WTX1 aMA2CS14XD10L7GzTziad GFibGU+PHRhYmxlIHdpZH RoPScxMDAlJyBzdHlsZT0 nQp7tDFPyWAHi fIlyuQKwUjVuv0luHKAmS KebJR0kzTyoR2EyrLI6SH Sxt7k0Lu18C20zZ0RueAQ +KRArvXP7oLS7 hV8hDvEuKnY7HHdxZ517Y nNtgPOuNcary9cts3jvcD a0HvL6NEDojhRrxBghEGV 2f3ZeHn56T89l IHdpZHRoPSIxNSUiIHZhb Smcgm7eqF0wBb8+PGNvbC B8zQN6pE7wKcUkGyI4IYs jH969WpNnfQNj Basbt3wfo5hpnIv2WpVyL XWnulCnaRkkWTL9y5IqFw 50K5BilSodw5NvRdc3fz4 1gNFrr6G8yAD5 K7BaZMAekfywzSDngJxhB J5iAQHuumkaDJDshA6bRG VvA3k1UuLmXyY0KPpjY0N hraD3HECbuZQt FNxxKMY0S70ji4T1UWRnD YBbCNR8xMC6yW0lyOquak ogbGVmdDsgdmVydGljYWw cECreV734DNOv bQxtAUPeaL8lJJKioDVda FpqAZ8mMLXidlhaXvhVRE wsIFNIQVdOVEUgTUFSSUU 0A1CpSua2YMRu nVuiJT7apBNaVKxyLe1wy KzcmAknNW7fHSQmtlksWK ZhnK5xYIZsqNZsmQzrFL6 hMOOruzisb016 HyYySXS9FXQheGGuU3Zkt I8jGtTxJVJjCSIkX9RsfJ AcYTshY072UHzbOrD6WCW howDlP5LjGVRg pDqvSiY7v3O9Ne0sHS9lI a4fXZl3UO27ND88jAMjr5 A4xHA2E4IdQYEwnjlkjbl bmQT1SCJaFSDs qH50eXVxLWayXv6dn8W2t 417NNEvVTWhfF45Pt9ofS csXAKepSXUaV7tlxtjx0h vcjogIzAwMDAw CNy4EIa7AXEljNscHwSbL CB2XsC0KAT5sPDviR3aaD dugjwazA2xPet+MzYgWWV blbI2V4TrSdk7 CDNbgHtjGA4muBYfCWmgO e4tcBtufNhkOD5jXHGphp ndXIUyjZ1gVYBiwRWkbJr jVP4zXHKjhdbs b615PjPrPOE4VZKcwIXkK 3VyrG7wNeBaVXNsDUKvD5 SpmYCkTQvfW167TPwhCdC 6ORWmihEwM1Us MYDavSxxHpA7k6K8No0TA B3WTLC0F5CrCwo6PLFclS adOB3ycOKpTSaxAj1moRw fzZnzGG3jNAVi mdzyHCBpcH3eZRYiyATmr SavVN4cPQCtgjclb307Ro IeZZP0QVAopVDpR8HdhP1 yOiAjMDAwMDAw L8FfyIYaYXinW754JVpsR hF1QLKkfhEyU0ZrXELjvL jbBxH9w3P0Si8WpJNkY8N uP4q9K3ZvSpln dHI+OV90ZPKoZL50cVXwh FVnu6qfsAp9TzJzYKJsVW O1hXxkBOoxb9CeTRMkC28 ckBYim7E9ZAIm eDnosNOrJyPtvPI6lH3jW Chuuffyx9shjkjvMttgk1 hhvj28xK17Z76qSDdwDSY oPSIzMCUiIHZh wBjble2kbY1fYf6+PGNvb WB6mZO0iS1cBnQjJiT5EQ wbP665EmDdvYHbShfpj2m xs9teqUi4YyLv EVHwvsNdpNyrPIV1v0DuJ h52Q38vAQliOIDcGZKaBS WsJSPbrQjpsl4qdB6aGd0 +YF0we0xwrv99 eV65lMU+QSOfLKW4nWqnT ZweOQJkwI6wOElyNrE7RS LjBmZxnI55bOAeXAtbDh2 emUzwaSeeDF2j EYNsmyunp303SyVta8svU GAtiUXzRJecLAB6X26bo0 P3MHKvUAZsWJX8yNV1dS6 hbGlnbjogbGVm dDsgdmVydGljYWwtYWxpZ 958KLIcnRrwVrReeDVoK3 wnhuJDYZ7fGyjomXH+PHR oTUE3qFnaECbi GPEfjI9yFHFsH6q7DqOoU nK3IOmxW2KmbiD5DINniN KzGDHehJUDvR7qonblv5x vcjogIzAwMDAw GTm8ZNb0STTjaIbkFdJiG WB3LyO9DVP3pGEodG3uiO cwpkwuoE1cPni+RklOOjw vdGQ+PHRkIHN0 hXhgETznZKOiqM8cKIIlL 5w3DbMqIkB1UUgoY1Wayw T8XJQwuXDbARBrdWTQuA9 uxjvrx2xkflur DyBoNRRuTUx0RFc2ZBUui GlcIpCwRQU7OaI8DIO0xA KhvU7fgFyqxdjnmS8aZlc +TVJOOjwvdGQ+ XQWiSXD2kNnwMDxeYSWuo A5kEEAkH6g2GbIcUxE0IJ heR3AlvoZ5JDObrTInIGF cuVASxV1kgjbb u0dzfdoxMlMiYTMyZEn1A Oi2GNNchDnqCsZtQWL3Bf Q0RIR4hVMqyF8dkJoxltr kaL0nXjd+UGF5 IAY3HM77HJ30A5PwFpblg GFibGU+PHRhYmxlIHdpZH RoPScxMDAlJyBzdHlsZT0 gQp8dFTRlIPGs bGx (more content not included)... [facility] Coding Summary HTMLBase 64 EodsojshUKp7wSg+PGhlY WQ+SK9DZHGnJ06mqWEiuX 7QE9nAZZ4HTSGWQBGSBZ7 XHS4zaLR9CEmuR0WgeuPi YoqzkJWqBJ35IJf9NPM0u IloIRsgzC1mrNEiC3p8Ha JbGY11aQ16OQazWCWnDoC 3LjZpbjsgbWFy U8nhXjRorLNxXri+PHRhY mxlIHdpZHRoPScxMDAlJy ZmtVzlIM8zTx4iXHFiOVI vbGxhcHNlOiBj y0hgIKYxNNkgGR4nfUmtA 9IeqHB7LVQbf2j1In24mE I+QQEvYYF9xEaiZEvye33 5EaGug5fvYOC0 iJImOKlpFLJ1D84qi7C5O SSfJOCcTLL1lIQ2aD6saS ldxrsyB1XbgRPaUfR9IMI 0vYPnfQ0rhItn zwqxdW5hXee+S59NWE3JB PEYTY5QHrd4H3VrHgcgdP I+IL68OYIhZM84wPDtoOZ hn6umkGs6TaVd IPFuDOM4iEfgPWsbg0QeM WXeW87tnXAlu5R3FHFygR evfXUiDxLnlQV9gX5uSOp umjhwn2pxggaw Gosph7jrmd06dR61R98nY XmxZBDpCGL5WSSqFJZepI pees0xoU4dRd4+QKpmf5l nx3pgfEw8BaWr ZVUtngCoeZtnLKJ7i7IeI w55H7LwyIsxn9MnDld0yn 33wHLgo8Q0wKS0HZdjIIN vcZ2iJMvvXnJ6 DAJiVbOhyJ21rLHcANerJ r7eoVzrcUzjJL3tPPDtkg fwQACbtG5nKEXmlCVdbIu zPB7bCODjmamr v305ItLbNRI4YGRbeRLpK 5ZknR6iVeVhRJRmVTYhA3 TdpOJuJFhxT128NTkfRjH 3MTKuprTwL0Qz GVSbbOhzHmM2o8W2Gb2Jm 3GserlbHGS9TKmsFJSbYz DmLyGfIlK7S1BmGjc7MPP feTfxGG1sA6Ul WTYcoxdofxajsLS1RUQdV LYonF38vYEaHJxoTx7pn2 D8a120EHEqEMEumP84On7 udDogMTBwdCBU pP0ghuexh7jkabnuJbUiE UJbIWo1KBp8RUEsnTqeLg LeUAA0BkT1GDK7xPTmbA5 beQdhbaqmlK6a Oyc+O42awY3zCTA3LAO3g gtiJQMwpbXiXB96LY49H2 RyPjwvdGFibGU+PGRpdiB knCdkCB0uSxUx m8ozp6AzYJjhP0UyVKNxL AqdAza4KCFoKSP4fRO8xS 9lPBOwNFscv2M8yLE9G2X nlnRcxa7dz1kv GDViLZqdM31ybWYhb2R8H IFcgAP3CVEswFwlImDwuH 93Oyc+FMEpyVcfx8UiOjp px8sid5asbEz7 WeXgGBYnbsMnvNwiUTR7b 9QoSh91U51kMUvmJPJhOG FpHCFfCCJouOkvuz1feN8 wIi8+PGNvbCB3 qMY9zF4rHKIiFtQ5VXxaF 880EmPpwGUyNieol9wvb7 eaqJl8HyWgFEIyskTobYt mLHZ2z0SgAl29 P87aBIbeIPGlRUQpXTHfI QSpwMdiih2lpB1sAg7+PC 4js6mhso94uQ58xOL+PHR oCAI1iWzoIBad YKJfpB0hOEtuUqK1WNLrL uXygX34lRHvTDqmAe5dgN nkzAusZV3dJBTyalgaq97 7ToTsq3qrSZXm iCTiKHwsOCP9T56qt1E4P ELiBNXtNYW2dXE6pK8qxD lnbjogbGVmdDsgdmVydGl mMYqhVQihK186 IHRvcDsnPlBhdGllbnQgT oOiSAp2J6FjRjd5NDNoqG qiNQ7ffWLjYAurQg6umGc wrNzhEF4nYETl eosud354EkFsg5gmMPOnx GXgSTqwXCL1C10lt5Y5TD JrHLDwZQZ9dDG7pI0nrQm nbjogbGVmdDsg paKtoGdyTYyjXCrvB438U HRvcDsnPkJpcnRoIERhdG V7MI88MT93bQSqa4C0qTI 8L6ZvOEIletnc fftmlFB2KLNzTBBerB92D b5evJsnKr9hCCKsQRR4UG KqgXQlZ8EvqJ4mAcRmDLI gJQQfQ4AjiMYn TOrjJ330WHkrSjE1WMCqx mKdB8TcAGMrbChhQuA5m4 D4Ue0PV7Z8BL84QN87mBO hh6D4mBM1C6Jd EAVvdqzwhcapvSR3RFAyO PDorY74Bz5aaNhdIh2fIV YfDOU8NPItkLSbG5UrvD3 yOiAjMDAwMDAw N7SoyUPlJCnqW440FOmnN nS0ZWGuhgYpQ4HaGRYbdW rdCbW5i4J5Wr5FTXc2UG9 8XZ20qOTeo0Y0 pAK1B0VvIBHgullgfjuiy NR4QGZiJZXivO20Pt6woA ecNy0fKVTlPHE8MQIkvVC kN5QymZ7sDkWc HXQqBEBeI5LwjKXoNMjfI 950QEqfZaX7OABcepJgW7 ZiMJFolCjkRpF4m7J1Cl9 OCWGqDU36FDD8 oDG0JW67XH99C4XrNsxhb GFibGU+PHRhYmxlIHdpZH RoPScxMDAlJyBzdHlsZT0 bSs1xDLPcDXMo pTvjvABuLuKza7koPFEkI JccVK3uxTqwF7UryPY4OK Ysv8n6Bv59Q74yX0CtbUW +JDVktYX2iRB1 eQ4pXkCiOrE3DIjdX112J nHjkBLqQrjvt9knv8gjxB f1RwM0YULbnmKqlVeeOSV 9j7WzZi37R79j IHdpZHRoPSIxNSUiIHZhb Fzifr0kfC5yOc6+PGNvbC W2vWV6hK5fBjVqEoL7AVd tW455GgQbdBTl Bvbue2rgr7nmzBr8BdFmR PZccdEapCmfLJR6y1HaKz 38C1FtzLyxg8UjOgc8ge6 6nTDtx6D1oRC3 Q5PmCNOexzyrqUMhqYjyN R7fVOImawocBQEsqU3pZM TuV9u8XvVzEfL9TTovE1F pztJ8YPCyfZZr EMrnJKI3J66ya3S3QTCiV PTgFIF3aGV3nR7bbWonwa ogbGVmdDsgdmVydGljYWw aTAmzU048JROn gSspVLOinI4nKIPdyEGpd TmtHG2bJMGlbzveUrgESL wsIFNIQVdOVEUgTUFSSUU 8M0TxCon8UDXt jQaoFM5xyAJmQZgiIp7he KgikElqQQ0gDAAveizbQM DcvC6gYSGfqKBhlFbkDP3 vDCDocfwae349 GqKsYOQ5NCTkiKRoT2Trm V4rSaWaCJPbQTYcP8FsxO LgVHerW184NEssMsB7EHC lfpNxP7SfQFNc iKgxTpO3s3U6Zp6yWI9tH g1zVXc8OM65PE57vLUbh9 N5rLF4N3KeOFOebhrplih slVH4SXJbIFZw aK76tIIoBRngHa0wq8Q5d 445APIhYTPcaE62Gr8hzR scUCMcyOXAeO7xgjqhb5d vcjogIzAwMDAw RHe4XHc7OCBroYnbRhNvR KX2RyQ1KTM4nHPeaT7qrE gaddfurZ3vGlc+MzYgWWV llbU4C5FqFxy4 CVDokWtiGG3plVMxCIvhO e6dnMvouYwuKK9pGBVguy fcTHRpwE2xAYDlfGOsbZs mUL2pNGDvxkxi o689TfVhIQR6LOGrsJRkY 9BkgS2tZeHkSRHxJWWnQ5 BvqMZxPHghV088NZrgHjY 8LZOiphNpZ7Jv PZSrmHooHmK8i4K2Ia5WD Y6JKZU3X3ZwKbj4HAFleB muEA5mgTFcFSucOo2ifTu ceIinJR4zPRJb heriABOtxR0yREOksMOky LpqZZ8bDYOcibmoe321Vo OlBNH3GXTzjZAhX3ExqE0 yOiAjMDAwMDAw U4VhjBVoGCswB445KWmkV oS8CWWpqfFcF6XwPFPcwH buVbH8z3J6Zr9HmZReA3R pK6x0E3XeZbjd dHI+SB65EKLyNN61eDKne YIqu8ctfRy5OaBaJMSgRM K2aUmrAHitk7VbMXTfO23 keUYbv3B1IPWm fXrhnKReVmKljUC2nS6rD Vfxgrphd2pmorygLnvho2 erwy89jF63D07fOIirXEA oPSIzMCUiIHZh yEftgl0giP5rVt9+PGNvb KU6zMI2aQ9mXyHjNzL8QR vtE457FiVypKLcXqiqi7o tw6xzdYn4XvFp GTBeopWlyTfxSBR9u0BzW n49A39eVZbvHMBuLITmBM ApHVXgbHelfo2ucS4cUc4 +VP5hk9eicl58 fH64pMG+HGKzWQS1lRazR AbbWKGpoT6cLZcxEdB0BD AgDiDduC20eNSiGWpqRs5 xnTwngWcmHI8d FPHuagfqx614HuQuh4gjU JShzEGpLTyzYLG7B11bi9 U9QTXePTRhTDV1iNA8tO3 hbGlnbjogbGVm dDsgdmVydGljYWwtYWxpZ 866UVUcrJtsIbBlwWIsS9 jioeEERY6bSktriCS+PHR oBHO8eHbiVCjo IIZwbE3uQXKuM1y3CdCrU cP3BGqkM2OqafO4DTNfhG PwAULkjGUVoE5wdrgln8k vcjogIzAwMDAw YSv5QKw0TIPvrGwwWoXoD KW0YsT0VKX2gMBcbY1jeR arwzsloI7bCnv+RklOOjw vdGQ+PHRkIHN0 zDvmLPuxGEQdyI6bATBuT 9u6GfHqDjQ5HVpsE9Odwz S0EVIldFIsETEmpYRPiY1 dalobo6uasoyi ScDhPFAxIZr4BGd3LVPyv UgqLlIeWRM7PhF2ONZ5fK JesD8atMvixlaluX5bGbw +TVJOOjwvdGQ+ DUCeCWT1wLpcYSvkKXNsk G5cLNIpJ3u5CfBkQkI2FI oiD1CpmzX2TQNopAIvOVI sfBUObA4cmbnx h4eiugeaZlYyGJCuXWy2J Rq2KEKtoDabTtAnWZK2Xz O1CYO3mIOkkD5dvXsbude jwJ2vBsh+UGF5 CHD5IS79MU97B0ShEvsis GFibGU+PHRhYmxlIHdpZH RoPScxMDAlJyBzdHlsZT0 yAy4cJVPbDHZn bGx (more content not included)... Normal [facility] ED Note-Nursingon 02-17-2021 ED Note-Nursing Patient called and informed of positive Covid results. No questions/concerns. Normal [facility] 2019 Novel Coronavirus (CoVI D-19), TERESE on 02-16-2021 SARS-CoV-2 (COVID-19) RNA TERESE+probe Ql (Unsp spec) Detected Abnormal Not Detected [facility] Comment on above: Order Comment: [phone] Result Comment: Yamilet ents who have a positive COVID-19 test result may now have treatment options. Treatment options are available for patients with mild to moderate symptoms and for hospitalized patients. Visit our website at [email or web address] for resources and information. This nucleic acid amplification test was developed and its performance characteristics determined by [employer]. Nucleic acid amplification tests include RT- PCR [...] detected) result in this assay. Performed At: [facility] [id number] Shanna Correa PhD Ph:[phone] Performed By: #### 6 [id number] ####[facility] ([facility])[address] [place] [address] ED Clinical Summaryon 2020 ED Clinical Summary [facility] - Emergency Department [address] [place], [place] [id number] ED Clinical Summary PERSON INFORMATION Name: TALHA BELL Age: 35 Years Sex: FEMALE : 1985 MRN: Acct#: Visit Reason: Cough; Sore throat - Adult; SORE THROAT, NAUSEA, WEAKNESS Arrival: 02/15/2021 13:59:29 Discharge: 02/15/2021 15:33:00 LOS: 000 01:34 Check In: 02/15/2021 13:59:29 Checkout:02/15/2021 15:33:00 Address: [address] [place] [address] PCP: SAVANNAH RODRIGUEZ PROVIDER INFORMATION Provider Role [...] Information: Levaquin PHYSICIAN DOCUMENTATION Patient: TALHA BELL [facility]: [id number] Age: 35 years Sex: FEMALE : 1985 [...] Medical history: Resolved URI (upper respiratory infection) ([id number]): Resolved.. Family history: No family history items [...] or hot potato voice appreciated NECK: -Supple (qdhq-oh-nbqzx): non-tender. -No swelling of anterior neck or [...] pain with (more content not included)... Normal [facility] ED Note - Physicianon 2020 ED [...] Medical history: Resolved URI (upper respiratory infection) ([id number]): Resolved.. Family history: No family history items [...] or hot potato voice appreciated NECK: -Supple (dxgw-sn-yyagk): non-tender. -No swelling of anterior neck or [...] other p (more content not included)... Normal [facility] ED Note-Nursingon 02-15-2021 ED Note-Nursing Pt presents to ED r/ t sore throat and burning when she coughs. Pt also c/o h/a. Pt states her boyfriend is here now and is COVID positive and she wanted to know if she has COVID. Resps even and unlabored, vitals stable no signs of distress at this time. Normal [facility] ED Patient Summaryon 021 ED Patient Summary [facility] - Emergency Department [address] [place] [address] PATIENT DISCHARGE INSTRUCTIONS Patient Information Name: TALHA BELL Age: 35 Years Date of : 1985 Reason For Visit: Cough; Sore throat - Adult; SORE THROAT, NAUSEA, WEAKNESS Arrival Time: 02/15/2021 13:59:29 Primary Care Physician: SAVANNAH RODRIGUEZ Attending Physician: Tiburcio Kennedy DO Comment: Visit Diagnosis: Diagnoses This Visit Cough ([id number]) Cough (R05.9) Exposure to COVID-19 virus (Z20.822) Sore throat - Adult ([id number]) Prescription Information: If you have been given a prescription for narcotics, seek immediate medical attention if you have any difficulty breathing or any sudden status changes such as confusion and sleepiness. If you or anyone you know is experiencing suicidal thoughts, mental health, alcohol and/or drug addiction problems; contact the [facility] 26/11 Crisis Hotline -Text 4HOPE to 450697. If you received any narcotics, sedation, or [...] legal documents With: Address: When: SAVANNAH RODRIGUEZ [address] [place] [address] Business (1) Within 3 to 5 days Comments: Follow-up primary care provider as needed for reevaluation. Continue supportive care measures at home as discussed with plenty of rest and fluids, Tylenol for aches and pains, baby aspirin a day, Vicks vapor rub for congestion, honey as a natural cough suppressant, invg-vec-hrufjqv Mucinex. Return to the emergency department for any high spiking fevers 102 or greater, intractable vomiting, crushing chest pains, struggling to breathe. Medication Information: The exam and treatment you received today in the [facility] Emergency Department were for an urgent problem and are not intended as complete care. It is important for you to follow up with a doctor, nurse practitioner, or physician?s school health assistant for ongoing care. If your symptoms [...] so we can reach you if necessary. [facility] Emergency Department has provided you with a complete list of medications post discharge. Please inform your syrup mixer helper/provider of your visit and for further instruction [...] Quarantine vs. Isolatio (more content not included)... [facility] Coding Summaryon 08-29-2020 Coding Summary HTMLBase 64 TswjzmmsDWd0sHw+PGhlY WQ+EY2IAAJzE88bpFVasD 9QN9uJNP9LSIFYDNZQVY3 CXH9vyZF9LQksL9OehjAp ZyeafRThXD39FSq3AEL6y ForWAviqY7arMFfM1u2Rf NuAK81bM83YZgaQPRzEjP 3LjZpbjsgbWFy D4nrDlSnoHFqJdl+PHRhY mxlIHdpZHRoPScxMDAlJy YtoNkwCC0lVd5lHPWeKTN vbGxhcHNlOiBj y0miKJEeEKzaKE5pvFikE 3XawFM3LOGfy2x3Yn52lV I+CUYvWWF7gBxtFPntk86 4YqVkd3akGCA7 aUVuOOliZFG9Q80ax9J5K EQjUJMuXDE2yJH6xD3meQ ncapdqU8YpbNPbJsV9DTE 2jEQlqU1foPqv bbvndD0zFzs+K40LNY8ZU UMOEN4IUev5M2SiFlxarV I+BD99WSYiJJ64fALrrXK en5entRr6QhAp BPDdTXN7jDcnZEgjp1OtL EKnV90uuLFbq9T7CJGfrR nmpBDqMiFwsJF8qS7jNQz einlqp6demfyb Tbusy9ozya24vM31J18tJ GhqADEeJVB9MISdGRUosP jmcb1llS8yMo1+WSovg0x db5glhLm9ClHk PCVaocTwnBtbEWM6n9CbD k78E8ZapLrqh0SoQwx4vk 89lXWre9N5uJE7GIsmJYD bcQ6yZJkoZcY8 TLZeYhTzhZ41hHIuQGhgK g1auFvmvUdkKQ9oTOFahc tfQMEehJ6xOSUsyQAbkCu gGL6bPBLovfci h508AoChQJX9ZKIciSLsJ 3MntP9uPrNoYZReHXByR0 AipYYiZPklC159NKudQoH 7OIJviyBqN4Xh HSZmjMeoAvB2v0G5Vt9Vm 6KcmlwxGCB3WVqoBQS4Jk Y4ElGmGgW8H7DzIqv6IZU buOzmFI4mA9Li LMBitvhltkixjVR8KKJvV AKzrN25aDXjNQziAn5uc6 L9u249YDLmHQCrfJ04Ez5 udDogMTBwdCBU pS6jaqgxf5zkgwbqYwQtL FCmLTp8MDs9YMVfzNszHt RmNKZ4TgP9TLW6zHUrsF2 inJcvjyveuA8x Oyc+H99lmO3yLEN6CME8b xgpZRDvgvGiZV36YS10B5 RyPjwvdGFibGU+PGRpdiB rfShpPC0uIpUa y3bdh2PuJCoiQ3DfROVwZ MibMct1HUCcSXE7mIU6yP 5pPALlHLykc5K4aAX6R5V asvVtye1uj8ca YVWrHUarG06leAVfh1S1A OXbeGS5BBMtkBacXuJtiU 93Oyc+QPUknYupk7TbOeg lw4jfm5vnrFm0 CzHuNTGifmTmmYphEHH9p 5MgIy50D06nYApaPHPtOP PaHEUiTFVpwOrxdb5sqB6 wIi8+PGNvbCB3 aZR1vG7rCVPyLdK9WSvcG 818BnIlgPFyDmfaa4xrq1 negNr8BiGsQPVcimWipNd sNZG1l7KeYq78 Z10wXXjkXPCsNWGmFEDbX XRylJwgah1gzT3qVi2+PC 4xr3saqn38eT81sME+PHR bYAE8dUmrDRtt RFIuwC2zFIwyInN3BIZoD wOvcR53gFWkFEefPy3nlA bkcWjeLI6jVRKlxhjdv81 1TdRyy0dsOGYk dLKgCGbjHDH3G39yb2X2G DFrDAKqMNI3cUX3uJ3ecD lnbjogbGVmdDsgdmVydGl kLQobQUmjW325 IHRvcDsnPlBhdGllbnQgT mJcLRy6A4XaEzj3QWOxdD npKJ4gmBWgLSskNt0ebNz aeQdsIM0zLMXg uzsyw169KpXmw7mpWPGdu SJkYLkqFXV3T14wk1S4AD JaCHIeEGZ6zMF5uW4hsOf nbjogbGVmdDsg wqVwwQnmOPkeZTvgD777S HRvcDsnPkJpcnRoIERhdG W2ZZ92ZK96gDTlz2L9tZQ 5M7ToUURutvbq qyuziWK5AJCcZUGumZ72D s5wvAzqZx0gJAWmHAH7XE WdsHWzP4XtkM5bApUuASN vKCLfQ6ThzKEo UIiyQ102NJatBgC1AIGiq rVuV7RrNGSxoBojWxU6c8 E8Tt8KV9S6PF21HW72dUD xr3M1qOO7R6Hy XLGtnhzvhuieyLB3YQDoV OMzlA28Fw0leVbxPa1pPL MeQBU3RVEbrOEfS0DdoR6 yOiAjMDAwMDAw J9RktARoOMtvG758RUwtT oK3BKGygtSbH3DjXQTzxM fwEfI0o1I4Ij1OUVh0SK1 7YU62kNHmv6L1 hSC1V7UuCYCusjvesfazh KQ4GJJjFBKulV33Cz1udC bkJe5bEOOaPVA8KNCfoBG oG5MhgK5cVlEh LGTgJCBlQ5GkyAVdUWclV 656JRbdZiZ1NORztbOvC9 GxUXDsoQqwErL9k3E3Wi4 WHUPpLP74AUX5 vJI3NP89HB89G4BoYrfzy GFibGU+PHRhYmxlIHdpZH RoPScxMDAlJyBzdHlsZT0 bSf2bLJEfBBSg qAqbeTBmBxFqf2hcGALsF ZgrPC6kcHqrG9KnxGN5SE Geg1d6Ov85N29nW7MgzGI +MVIavQV5xOD9 xN2mTeLmEgK7IEtnN701L wFozWMuTadsg6bvx5lqnU l1VrQ0EQMwzlDaiAlxFCV 0k9OrAk20G44u IHdpZHRoPSIxNSUiIHZhb Oberc4wpN8vCy5+PGNvbC R5uZC5iL3rElElZfJ9OPb gO068SwJvyRNk Bcstl5xgu6fxrQo5SbRqL MNzifJewMbfLWM7v9PyKp 64C5QuqUqmn8KsErx0lb8 5mNDwk1W8hHP1 N7ItVEVtctkyoJRweQxlK E5wSAPfjncrZNMfyC6nEW FlL3g0RcWlBdN6KAbuD9N pwgW7HEAwcNMh LTnkETQ2P32hx9G2LETbN RMqWUO0pCC2iY4gqNtsdz ogbGVmdDsgdmVydGljYWw kHWwiW471RVLp qVvjCEHxaN0sSJDakSDbn LwqRP5vGPEmajacFbcAFJ wsIFNIQVdOVEUgTUFSSUU 6L8PbWiw3QIEv pLtcQD1lmKHfYHscUy0lv PzifZdwCA3dNKMglsexBB WmkV1nDVOvoLSqlQssZG7 nXMPsxzbje338 WtPsFON0ZROwtGYyZ6Hah F3wZoNrCDUrKGNuK1StmH TkBNcxD543MVuhIrM9TYK nwxXlO5WtMSGg tMlgKsE6u8Q0Ug6oQA6rT b9yJSw3KV66PC83aMIhq7 I0eRE3W0AmWJAxhygvjnw eiPO1DSJjENPj kJ47gTOdYSpoVg6cl6Q0g 297PGYcJRZzrW92Mw2agA ajWDXxaIDYgA3fgxdyl3r vcjogIzAwMDAw OMe8VQv4WJRmvTorIiWdD HJ9MaU7NZV4yMJvgO8lkZ elxfoffG7yDeo+MzYgWWV ngoF2Q9XlPme1 AKZxoVsfTU6raZSaTRgaJ i2obJoqnZzxEX0eKVWslw rzRXUwkZ2cFTEobYXinKx gCJ2lCUQrfwuq y143NkGaQLO5GUHbrLLuG 0QenR7kGsLgSWVmHNGoW6 OmxRGhEJweE151NCthWkC 2VYUsxiXuV2Nk SPFqvTijZoU0f6K6Gs0GF L4RSST3P7PdQvg7IBDpwU fzRP7vbWPnUYwwLk8uaUy tnIpoIT1bKAIr uojjCSXjnI0gRWKckPRex OsnGO8yTOEofrovj295Ii UcMQL3SKLkkFPwP8ObeI3 yOiAjMDAwMDAw O5RdxUMtWBmeI564YAxeR qE8ACMrugYjJ2ZyQXRssQ iyEdV5a9N5Qx2JHWixcTD +RT46zb44S3Jy KiinOxx8KFBpLXK9vOM2t N6zDZWlAQtoc9O2pTD7H9 JpoiTwpw1hu3hjLXNlHQf tO84ztEFiq3Z0 ZCEhyBD2XHVvkVpaPuBsq G93Oyc+YQTsnFeru6BgTo tqt9bib0dfpVi7XtDoFNI gdmFsaWduPSJ0 i8IhJf41E48uGYwfUJHuV KElBZUnCKGkdIqmrn5kwI 9wIi8+ESKguHS0bLW2hH8 jOyIhHjZ9TGqo T069CuYnnOAaNuxlo9kzm 4opoYg5TiNqQGXbyyFarI ugLEC6r1UdBx94N4AhuQj ed2BhWmw1wz46 zTOti8T8iKX5L3VvITVbd rqexEBvqHqrPE4lDBNynu jcNAStnA5jPKQnS6e3UgL hNgE3EFpaS6Ud ktG0AJYafQQmLPRwyLXDx G6uordon4vijxkxTyKjRX CrGMn4TVi9KWEolSwcXhB fQMJ5QiO2PFE1 tZYlgT3jrVjhyuiscJ2iZ yc+EFr9n0nbjIIyWP6srT R7ET66ZR52zFImc6X2kOS 7O9HiUNApkzrw qhsxgCN2GHUsFWAniW28Z t9zgXnkAw3hYDDsMFE9AK FnzJOxH6ScqS8qWiYvFYY rGFMrF0EpjRPj NAmiU749KMhpNlP1XJBtn lYlZ5MeORCcxRrsZcQ1p3 M8Nv2KCH91MD58KD05uGL rw3P7aTB0T8Vg VEPfdwrnravsoMB8XCGtE MBdxK76Vv7xpSggAd0jME XfYBR9LCNkfVLpI0ExsL4 yOiAjMDAwMDAw F0ZfnQCtMKiwC445VSutN yE4YTWljcSbD1TwQJTkeA bpLmA2s5K0Pb2SQg54JO6 7FA55tKFbl8Y3 gDK4I2FcLSZlxzwztnoeh KY1NSNjETLquL68Uq5seV zqXu0zQNZmOZS1XGUhbYC vM6XqeO5rQkZh BIDmTDFdV7BrkCXaOZeiJ 406GQgqFeZ3PUMoilLzZ0 KdFVSfvKvzNvD8t9T7Kt3 MCImoijj1L5Zb PjwvdHI+TZ77OLVwYO59i ROqqHXet8kzrYf4ErVnXR OpCTG6wPstFVlqk1DwYLH xH05ugSPex7E8 IGN (more content not included)... [facility] Coding Summary HTMLBase 64 PpangogcBKp0yEj+PGhlY WQ+EK9VVBYpL73enDVcdR 8VU0eZWY8XEYNMFIVRJQ2 MHU6qpLW2YZvpD7BobxBs RmjaaJNlKM36BIr7BAZ4n EkmXMskkQ2khEUyZ4b3Pv YnMH31pK62ONrdPQXcRnT 3LjZpbjsgbWFy X3hvLyTysIGiMsg+PHRhY mxlIHdpZHRoPScxMDAlJy HtzNsuLJ7bLd2pMSTuDUK vbGxhcHNlOiBj j2cdHICoJJjaWE4foYuhP 8KuxNI2TWYvf7a7Xl83wA I+RLKvDQF3qIxhDPaiz35 0JoRbe5ryOUJ4 uUPhUTrcCPM9O69cn7U8C BVcXKOnYVR9aUY0oP2maJ mwiqcgL2HceNFrLsA0WMA 6cWOazL1qsLuc lzleqC5yCgb+V84CIT2UO FXNRJ0EVgt5D7AxDcvceK I+JZ33GNIkNE88mPCzcCJ hd4ahyOt5EtHl XSZfZYP8lRwiYEzbk5XcV IWwA93mgHPoa1H8FQMubG lhvXNqQkIcbZI5hN7cJIl ndilmm6kzlhak Ihiuu9yicg93aY92Q08kJ NptVELfPCO4DJNrZDQbfD efyq2lwG7uCq8+TGpjx6a wm0tgvRu1MdCm JIQsdbMrgRyvJJN2t8IiV d61C1PzlLddc5JfGzs6ah 72rRVrw4Q5hWF7JNdgFQP ntT4gLIxwChX9 SJXrMtDndI84aRQjUTcoB d3awAlpkSobHP9bIKNpsf ymKUVcoM5hWGWpcRLbpLm dYP0wESNlzujw v202NtTkEUP4HMBwpISuD 7MzwP0iTyQnEQLmRGPwA1 WfgFWrFQmyF486ZSawAhH 8POWmqzRyN9Bq ZXCftObjMfX6k2P6Cu5Dk 5CehyryRTL4DNzgEGP4Fj I2GdLaSgA7Y2HrYsy6JJW wfRshNF6pJ7Ga SKNykboglxbwbAQ0FWDtX ZRtaP73pBVrVDxdAk9bj0 S7u147LQFzWVNdaQ42Kf7 udDogMTBwdCBU qM9yspbyy0prxuemNpLrL RHiCHw2HNx6PHJjeKpcDl NbFKZ4DrV0WZE9wFEycF3 lkNuupongfI5w Oyc+A21ppS7oMHK0PDC2t gmfZFYvqxBjRT70BK53D8 RyPjwvdGFibGU+PGRpdiB mdDtfCA6ySlVv j3xme0AbXAywR1FtOECrD WyfJld2PNSbKFF0eBB3aC 3iUEWqNXeej1Z2vKX6L3B cdcWrpi5zu0yw YNGvNSruX53ouISwg3V6H PJzpPU6QOTugVwdQhRskN 93Oyc+TEIscVodm7MwWgk ns0nng2iieGw3 SnKuHSPrruToeZwoVYL2j 6RtWk91Y07zQZtcHKQbIX LzSWZdUVOufFnatw8pbR1 wIi8+PGNvbCB3 jHL2aL8oFFZhEvE3BNxbD 558GnLuzHSfSpimg3ohq8 cdfHi1FaYvYJUstqSsiFn nJOP2h6VgGh00 C11fANgaBQUbFGVxYMLiH LFbdAuvng2oqT1hOr7+PC 4dl0dkov44kT93oHG+PHR kFGW2aEydOVyw TTTyvW5nPHbsNjQ4FQJbA aMhsZ41lBPcMUrjNl0jrP bbsJqcZH2jMBQgxsexy98 3TfQfe1jgUMNl jDGaTDpvUIZ4A77bs0G2O TDxULRpJDJ8cOX3yZ9bzK lnbjogbGVmdDsgdmVydGl hNPciZIzwX726 IHRvcDsnPlBhdGllbnQgT lUiOZe1O2EbUwl1VTMjgY xxEF1dmJDxSKhmYj4tgNv obFjpBJ7vVWEv sgiml429NrRzf1wiFWNkc MJvBGipQHJ0H44st5V3TJ HmHSUyLRX4aOR0xB6hyBa nbjogbGVmdDsg niNeuBetMOebBPieJ303B HRvcDsnPkJpcnRoIERhdG W6JF80VE20kCIof0J0hBJ 4D3XtRHPmgvee vfrzwVR5SLItPIXpiT00U t3ojGrxEp6lILQuREL6ZX SnbSNwA6WkhZ4sPzNjVKS kHCCbZ4RfnQEp GKslX424ASdhJjC5ORZbm gCuV2SvWCWjkJpvElU7n0 O6Ps8RP7W7YN06NF94zRN xx5V4fBN4K6Jx GQWmedossjkcfIY8HZJuS FWnlI85Qd4ciHqnWg4xJJ XzSLA3EKMsgOUtY9YhiX5 yOiAjMDAwMDAw U7XliCGkXEgpJ947WRdkW tN5IJAlxzGtG6PgGRIgrW nmDcY6c3W5Ck1CRQx3TY9 8KW72yHZou6C5 vTV2R7TrJKFfupjrxzqnd LO0YAHsUSWrmI91Zm2maY iyMi3zCENeRBZ0IJFgcIB rS6OkjH5aRkBl IZOtEHCiG4MmvZYaUJcwX 779WMmlXfO9TMIeotIpZ0 HoEYYjqXpsSqB3h9F7Sj2 UWGBxRS82OPG7 yKW3LR48TZ38M4KxUmbjc GFibGU+PHRhYmxlIHdpZH RoPScxMDAlJyBzdHlsZT0 sDg8bZVKpDWJo rQzwpCExFiLdy8czEEAtO MueSU9apCrtI4UzdCC9GW Jht2j1Eu83D45uX9MngVP +PYUrrDC2tZI0 rC5vLwIvCrR2ELutK954X tPkeBYgWofsm2lyw8rskT w7OkN1HEYsubXjrXydYHJ 4k7SzNu05Y05y IHdpZHRoPSIxNSUiIHZhb Qxqov1riL3qKf5+PGNvbC Y9xPS6hS9bDjVtFiC8VAf qU901EoDznKWd Yehla8khz6vcqJu2KwMpU QYganRltHdfZZC4k6QcTg 38A6FxaJlwg7OrPhj7xq2 0uHBqm8D7sXW1 K9JsQQXqiujggBOupEtjR U3lTHKbcofiHJHrsK6bKL SsV6p7SiTgCtJ3LDsnM2B orzA5AWVkgCNj YRvdVCW3L72zq3W2QCTtH BCeDMV3aSI0kD6lvWkjhy ogbGVmdDsgdmVydGljYWw xJTgoX689USVa sDfnAQFhnA3qOCOnzTOnk WeeFP9lJVHtkvxnXugPPM wsIFNIQVdOVEUgTUFSSUU 6I0QeWzu1GOVy kOnjXV8juNLtYWtjGp0ya DmidTalVX5lJYVcqrhrSQ TalM4lXUFrnSLhuBdjIH1 oLTIfltwxm227 TcOdBYM2EOYsaETuM8Ubz Z8dDlFfBDTbKODhL8TdyG QhMBvaS673ISsyFrE1ZPF njrClW9BfELRd nCefTrX2y8U1Qx7uUA1nC w3gXNs5KG16UD64bYWrt0 H3pRN1J3ThIERbypurouj jhSW6XNLrUGFh nF68lEQuSKnfGv7ar5N7y 842XPZvIUXkrG63Mf7gdL fuIAWupSOAjE3tfffve6r vcjogIzAwMDAw PRh0UCq7MKLpzJplBlPfS ZI6LnV2NSZ0sNDzwF3bfN bwsuyxjM9dDth+MzYgWWV camA7B4UkIrh6 OCCudXewUZ3guAGeVHmjK i0vhXzfcLvhCH0xZBLrwo ooEFIxtU5jPTApdPEbhSy rZR6fCFMdmllp t577EgDhDWF8SXEqlHSxE 4NeaX3iCdZsMCUpIBZgL4 FimFMlKQceD697EQfuHiE 8TMQpixTkM4Zb XPEegPuxXkS9b7M0Sm5XE J0EHUE4B4RgUdr5YJOcgZ zfRW0nxQZnPCnuRm5xwIp emOceWQ0rCBRl dgpoZMZasV3bYXYqcRUrq VknER7rSAUtdjemz290Fm XwJAO9URYuaJCmY0XirA6 yOiAjMDAwMDAw R3VisDDpDPqzG833HJmmJ wW2VRYrjcAxI0ViXFRizJ eaSjP2d6P5Le5IkIGcP7D kS9r6K3LeTqso dHI+BG30JLLiZN20qZJnm OCmf6xnjRe6QsGgSNZgEB I9qNbdWLypq4GbAIMhY60 xdYCud6T2OHZy sJotnJSjHcZkaJK2aF6tL Lvireocu4xmsombHhiub2 eqeh59dV59W47sETxpVCS oPSIzMCUiIHZh yDvtxa2shU0uDv3+PGNvb JF5eOJ5dU4cQmQfIsC6PF ptO240EgWpeRXkFbcfh9f gt5hqiCf6QbEc FQYwavOgnNxbHHB6i3RsY h20R80hYOxeLBFvTLQfXN QvNCDtlNzsej2pnS5iDy6 +IQ5tw6ojqz03 zD88oIN+YOGdKLV3mVheA DltETWlwI1uSMwsTrM5OS PkMmKupT75wLVwFHgoGz2 fqTjcdUuyIW0k WBPlebowu475GbSmj6quS YCexXVoCEvwKKF8M56tk6 J5YRKzJFVwVAE4yEQ0dM6 hbGlnbjogbGVm dDsgdmVydGljYWwtYWxpZ 873MISvvVtoVfNjzKDoZ5 aucqAYVD4vAupthYY+PHR cFVJ9vLwuWVsv DSGsiX5cPJWmQ1f7RiBeS nC0SAthT4CvpsE9PRUpvC BdUNBctYVJwU0acmdzl8o vcjogIzAwMDAw CHt3NOe7ROVjfPcoCtOsZ WP2InL4PQP9sLJypR1zrE boltdqoP6hBjf+RklOOjw vdGQ+PHRkIHN0 cLwaWIyvSSVfvQ4zNBLyC 1i8IrWyLiE8BIwyN5Wibw N6BZWtsHNuRAVgeBMZkU1 mljlnn0oumsmr ZkBfFPTjHBw1TXq8QKUkf TbrEuJmYBO2LfP1LQG2wS DlhV9tcVjixmduoF9pGot +TVJOOjwvdGQ+ XGRoOSE4lLupNDvbLXHyi U9gWFZuI7n8AqEuZjH9ZW qqW1OndkO1INSzwPHlPTH stOQHlP3llrun r9eghhgvTnQpEXWfEVc9R Ho1BVYnaZmlFuQsHRN1Dm C8IBE6sQLyzS1kfClfgpq iuU3bGei+UGF5 VIZ3DS74ZP42N8IvLmvnl GFibGU+PHRhYmxlIHdpZH RoPScxMDAlJyBzdHlsZT0 dUz9hEMMaBJNd bGx (more content not included)... Normal [facility] Chlamydia trachomatis, TERESE L Con 08-25-2020 Chlamydia trachomatis, TERESE LC Negative Invalid Interpretation Code Negative [facility] Comment on above: Order Comment: Send results to Dr. Rojas Result Comment: Perf ormed At: =G [address] [id number] Beatriz Reyez MD Ph:[phone] Performed By: #### 1 [id number] ####[facility] (DEFAULT)[address] [place] [address] C Urineon 08-24-2020 C Urine No growth at 2 days. Normal [facility] Comment on above: Performed By: #### 6 [id number] ####[facility] (DEFAULT)[address] [place] [address] .Auto Diff 1on 08-22-2020 Auto [place] % 7 % Normal 1-12 [facility] Comment on above: Performed By: #### 1 [id number], [id number], [id number] ####[facility] (DEFAULT)[address] [place] [address] Baso Abs# 0.0 x10 Normal 0.0-0.2 [facility] Comment on above: Performed By: #### 1 [id number], [id number], [id number] ####[facility] (DEFAULT)[address] [place] [address] Basophils/100 WBC (Bld) 0.2 % Normal 0.2-2.0 [facility] Comment on above: Performed By: #### 1 [id number], [id number], [id number], [id number], [id number] ####[facility] (DEFAULT)[address] [place] [address] Eos Abs# 0.1 x10 Normal 0.0-0.4 [facility] Comment on above: Performed By: #### 1 [id number], [id number], [id number], [id number], [id number] ####[facility] (DEFAULT)[address] [place] [address] Eosinophils/100 WBC (Bld) 1.3 % Normal 0.9-4.0 [facility] Comment on above: Performed By: #### 1 [id number], [id number], [id number], [id number], [id number] ####[facility] (DEFAULT)[address] [place] [address] Lymph Abs# 1.9 x10 Normal 1.3-2.9 [facility] Comment on above: Performed By: #### 1 [id number], [id number], [id number], [id number], [id number] ####[facility] (DEFAULT)[address] [place] [address] 59411 Lymphocytes/100 WBC (Bld) 35 % Normal 14-48 [facility] Comment on above: Performed By: #### 1 [id number], [id number], [id number], [id number], [id number] ####[facility] (DEFAULT)[address] [place] [address] [place] Abs# 0.4 x10 Normal 0.0-0.8 [facility] Comment on above: Performed By: #### 1 [id number], [id number], [id number], [id number], [id number] ####[facility] (DEFAULT)[address] [place] [address] 81413 Neut Abs# 3.0 x10 Normal 1.5-9.2 [facility] Comment on above: Performed By: #### 1 [id number], [id number], [id number], [id number], [id number] ####[facility] (DEFAULT)[address] [place] [address] 86179 Neutrophils/100 WBC (Bld) 56 % Normal 44-88 [facility] Comment on above: Performed By: #### 1 [id number], [id number], [id number], [id number], [id number] ####[facility] (DEFAULT)[address] [place] [address] C Genitalon 08-22-2020 C Genital Send results 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 Gram Negative Diplococci not seen. 4+ Gram Positive Cocci 4+ Gram Negative Rods 2+ Gram Positive Rods 1+ White Blood Cells Normal [facility] Comment on above: Performed By: #### 2 [id number] ####[facility] (DEFAULT)[address] [place] [address]64 CBC w/ Auto Diffon 1 Erythrocyte distribution width (RBC) [Ratio] 14.3 % Normal 11.5-15.0 [facility] Comment on above: Performed By: #### 1 [id number], [id number], [id number], [id number], [id number] ####[facility] (DEFAULT)[address] [place] [address] Hematocrit (Bld) [Volume fraction] 34.4 % Normal 33.7-40.4 [facility] Comment on above: Performed By: #### 1 [id number], [id number], [id number], [id number], [id number] ####[facility] (DEFAULT)[address] [place] [address] Hemoglobin (Bld) [Mass/Vol] 11.2 g/dL Low 11.3-15.9 [facility] Comment on above: Performed By: #### 1 [id number], [id number], 8679690, [id number], [id number] ####[facility] (DEFAULT)[address] [place] [address] Instr WBC 5.4 x10 Invalid Interpretation Code [facility] Comment on above: Performed By: #### 1 [id number], 80329683, 1905694, [id number], [id number] ####[facility] (DEFAULT)[address] [place] [address] 51486 Man Diff? Auto Normal [facility] Comment on above: Performed By: #### 1 [id number], 41100503, 0720520, [id number], [id number] ####[facility] (DEFAULT)[address] [place] [address] 28296 MCH (RBC) [Entitic mass] 28 pg Normal 24-34 [facility] Comment on above: Performed By: #### 1 [id number], 45553513, 0312962, [id number], [id number] ####[facility] (DEFAULT)[address] [place] [address] 65912 MCHC (RBC) [Mass/Vol] 33 g/dL Normal 26-37 [facility] Comment on above: Performed By: #### 1 [id number], 96324561, 2033577, 2921373926, [id number] ####[facility] (DEFAULT)[address] [place] [address] 28168 MCV (RBC) [Entitic vol] 84 fL Normal 81-100 [facility] Comment on above: Performed By: #### 1 [id number], 58386335, 2970519, 8482486263, [id number] ####[facility] (DEFAULT)[address] [place] [address] 99067 Platelet 200 x10 Normal 138-427 [facility] Comment on above: Performed By: #### 1 [id number], 11990218, 2196068, 9338488748, [id number] ####[facility] (DEFAULT)[address] [place] [address] 11516 Platelet mean volume (Bld) [Entitic vol] 11.3 fL High 6.3-10.2 [facility] Comment on above: Performed By: #### 1 [id number], 61394388, 4050831, 9593381271, [id number] ####[facility] (DEFAULT)[address] [place] [address] 48245 RBC 4.07 x10 Normal 3.70-5.30 [facility] Comment on above: Performed By: #### 1 [id number], 65840217, 9957025, [id number], [id number] ####[facility] (DEFAULT)[address] [place] [address] 12543 WBC 5.4 x10 Normal 3.5-10.5 [facility] Comment on above: Performed By: #### 1 [id number], 33247836, 0050795, 7433236157, 1278249994 ####[facility] (DEFAULT)[address] [place] [address] 98833 CMP Standardon 08-22-2020 eGFR Non AA >60 Invalid Interpretation Code [facility] Comment on above: Performed By: #### 1 [id number], 72566655, 8236589, 8712917143, [id number] ####[facility] (DEFAULT)[address] [place] [address] 26440 eGFR AA >60 Invalid Interpretation Code [facility] Comment on above: Result Comment: Supervisor Shearing alejandra Kidney disease could be indicated at eGFRs of less than 60 ml/min/1.73m2. Kidney Failure is indicated at less than 15 ml/min/1.73m2 Performed By: #### 1 [id number], 23376835, 6504780, 4164911734, [id number] ####[facility] (DEFAULT)[address] [place] [address] 10609 Albumin [Mass/Vol] 4.6 g/dL Normal 3.5-5.0 [facility] Comment on above: Performed By: #### 1 [id number], 96884263, 9238946, 4983503117, [id number] ####[facility] (DEFAULT)[address] [place] [address] 99461 Albumin/Globulin [Mass ratio] 1.8 {ratio} Normal 1.4-2.6 [facility] Comment on above: Performed By: #### 1 [id number], 39447245, 2641478, 0323188451, 5948006584 ####[facility] (DEFAULT)[address] [place] [address] 64950 Alk Phos 61 IU/L Normal 32-91 [facility] Comment on above: Performed By: #### 1 [id number], 84656543, 5068470, 1141847352, 6747794690 ####[facility] (DEFAULT)[address] [place] [address] 04786 ALT [Catalytic activity/Vol] 16.0 U/L Normal 14.0-54.0 [facility] Comment on above: Performed By: #### 1 [id number], 24455732, 9714721, 6424099889, 4547866534 ####[facility] (DEFAULT)[address] [place] [address] 33811 Anion gap [Moles/Vol] 14.0 mmol/L Normal 5.0-19.0 [facility] Comment on above: Performed By: #### 1 [id number], 73992250, 7423582, 8183931131, 0613647195 ####[facility] (DEFAULT)[address] [place] [address] 21356 AST [Catalytic activity/Vol] 16 U/L Normal 15-41 [facility] Comment on above: Performed By: #### 1 [id number], 28149183, 7291105, 3928186785, [id number] ####[facility] (DEFAULT)[address] [place] [address] 23470 Bili Total 0.8 mg/dL Normal 0.3-1.2 [facility] Comment on above: Performed By: #### 1 [id number], 37997844, 0239985, 4580211786, 3950091904 ####[facility] (DEFAULT)[address] [place] [address] 19598 Calcium [Mass/Vol] 9.3 mg/dL Normal 8.9-10.3 [facility] Comment on above: Performed By: #### 1 [id number], 61445127, 0014810, 6670313189, 1961389702 ####[facility] (DEFAULT)[address] [place] [address] 26160 Chloride [Moles/Vol] 105 mmol/L Normal 101-111 [facility] Comment on above: Performed By: #### 1 124989910, 72066984, 0490776, 1665963764, 3896216497 ####[facility] (DEFAULT)[address] [place] [address] 53788 CO2 [Moles/Vol] 21 mmol/L Normal 21-32 [facility] Comment on above: Performed By: #### 1 [id number], 87220891, 3532093, 8515886999, 4361328232 ####[facility] (DEFAULT)[address] [place] [address] 97052 Creatinine [Mass/Vol] 0.90 mg/dL Normal 0.60-1.30 [facility] Comment on above: Performed By: #### 1 [id number], 95702928, 6339763, 2219635301, 8961122036 ####[facility] (DEFAULT)[address] [place] [address] 59240 Globulin (S) [Mass/Vol] 2.6 g/dL Normal 1.5-4.3 [facility] Comment on above: Performed By: #### 1 [id number], 57151046, 5736578, 3297946246, 9313664339 ####[facility] (DEFAULT)[address] [place] [address] 39010 Glucose [Mass/Vol] 99.0 mg/dL Normal 74.0-118.0 [facility] Comment on above: Performed By: #### 1 [id number], 56458617, 0733379, 0766267316, 1476518063 ####[facility] (DEFAULT)[address] [place] [address] 66840 Osmolality 272 mOsm/L Invalid Interpretation Code [facility] Comment on above: Performed By: #### 1 [id number], 08254981, 7476926, 4189040581, 9781783477 ####[facility] (DEFAULT)[address] [place] [address] 98570 Potassium [Moles/Vol] 3.8 mmol/L Normal 3.6-5.1 [facility] Comment on above: Performed By: #### 1 [id number], 65017694, 1254969, 3085847755, 9983484612 ####[facility] (DEFAULT)[address] [place] [address] 33010 Protein [Mass/Vol] 7.2 g/dL Normal 6.5-8.1 [facility] Comment on above: Performed By: #### 1 342449700, 33284505, 8699472, 1248580538, 1600263699 ####[facility] (DEFAULT)[address] [place] [address] 66516 Sodium [Moles/Vol] 136.0 mmol/L Normal 136.0-144.0 [facility] Comment on above: Performed By: #### 1 [id number], 75456669, 3608739, 1400242667, 4702993233 ####[facility] (DEFAULT)[address] [place] [address] 32160 Urea nitrogen [Mass/Vol] 13 mg/dL Normal 8-26 [facility] Comment on above: Performed By: #### 1 990980493, 40248873, 7987267, 7799979277, 2338056950 ####[facility] (DEFAULT)[address] [place] [address] Urea nitrogen/Creatinine [Mass ratio] 14.0 mg/mg Normal 4.6-16.2 [facility] Comment on above: Performed By: #### 1 [id number], 09744140, 9368138, 7372086508, 3612727533 ####[facility] (DEFAULT)[address] [place] [address] ED Clinical Summaryon 2020 ED Clinical Summary [facility] - Emergency Department [address] [place], [place] [id number] ED Clinical Summary PERSON INFORMATION Name: TALHA BELL Age: 35 Years Sex: FEMALE : 1985 MRN: Acct#: Visit Reason: Dysuria; Weakness; STD exposure; Pelvic pain; Flank pain; PELIVS PAIN, LEFT KIDNEY PAIN Arrival: 08/22/2020 17:41:37 Discharge: 08/22/2020 19:50:00 LOS: 000 02:09 Check In: 08/22/2020 17:41:37 Checkout:08/22/2020 19:50:00 Address: [address] [place] [address] PCP: SAVANNAH RODRIGUEZ PROVIDER INFORMATION Provider Role [...] States it was completed by Dr. Rojas assistant guest services manager in [place]. Patient states that she has been doing [...] transmitted infections. States her boyfriend worked in [place] for approximately 1 month and states that [...] she has a follow-up appointment with her WELD INSPECTOR on Saturday of this week however states [...] 30 mL, IV Push, As Directed, PRN: hogshead liner Prescriptions Prescribed B (more content not included)... [facility] ED Note - Physicianon 2020 ED Note [...] States it was completed by Dr. Rojas assistant guest services manager in [place]. Patient states that she has been doing [...] transmitted infections. States her boyfriend worked in [place] for approximately 1 month and states that [...] she has a follow-up appointment with her WELD INSPECTOR on Saturday of this week however states [...] 30 mL, IV Push, As Directed, PRN: hogshead liner Prescriptions Prescribed Bactrim DS 800 mg-160 mg [...] Medical history: Resolved URI (upper respiratory infection) (35808556): Resolved.. Surgical history: section ([id number]). Comments: 09/16/2017 17:09 EDT - Denzel NICHOLAS, Mildred X4 Tonsillectomy (092807503). TL - Tubal ligation ([id number]).. Social history: Social & Psychosocial Habits Alcohol [...] smoking 2012 (more content not included)... Normal [facility] ED Patient Summaryon 021 ED Patient Summary [facility] - Emergency Department [address] [place], [place] [id number] PATIENT DISCHARGE INSTRUCTIONS Patient Information Name: TALHA BELL Age: 35 Years Date of : 1985 [facility]: [id number] Reason For Visit: Dysuria; Weakness; STD exposure; Pelvic pain; Flank pain; PELIVS PAIN, LEFT KIDNEY PAIN Arrival Time: 08/22/2020 17:41:37 Primary Care Physician: SAVANNAH RODRIGUEZ Attending Physician: Tiburcio Kennedy DO Comment: Visit Diagnosis: Diagnoses This Visit Dysuria ([id number]) Dysuria (R30.0) Flank pain (R10.9) Flank pain (210533656) Pelvic pain ([id number]) STD exposure ([id number]) Vaginal discharge (N89.8) Weakness (44502336) Prescription Information: If you have been given a prescription for narcotics, seek immediate medical attention if you have any difficulty breathing or any sudden status changes such as confusion and sleepiness. If you or anyone you know is experiencing suicidal thoughts, mental health, alcohol and/or drug addiction problems; contact the [facility] 26/11 Crisis Hotline -Text 0OCEM dn 567585. If you received any narcotics, sedation, or [...] legal documents With: Address: When: SAVANNAH RODRIGUEZ [address] [place] [address] [address] [place] [address] [employer] (1) Within 3 to 5 days Comments: Please follow-up with your WELD INSPECTOR in 3 to 5 days. Keep your [...] a prescription for Bactrim was sent to [facility] pharmacy for you in which you [...] also be sent to Dr. Rojas your assistant guest services manager. Continue to monitor your symptoms and return here to the emergency department if you develop any fever, chills, worsening pain, if you develop any abdominal pain or any other worsening or concerning symptoms. Medication Information: The exam and treatment you received today in the [facility] Emergency Department were for an urgent problem and are not intended as complete care. It is important for you to follow up with a doctor, nurse practitioner, or physician?s school health assistant for ongoing care. If your symptoms [...] so we can reach you if necessary. [facility] Emergency Department has provided you with a complete list of medications post discharge. Please inform your syrup mixer helper/provider of your visit and for further instruction on these medications. Any specific questions regarding your chronic medications and dosages should be discussed with your primary care physician(s) and/or pharmacist. New Medications [id number], [address], [place] [id number], [phone] sulfamethoxazole-trim ethoprim (Bactrim DS 800 mg-160 mg oral tablet) 1 tab(s) Oral 2 times a day. Refills: 0. Medications to Continue That Have Not Changed Other Medications (more content not included)... [facility] Extra Redon 08-22-2020 Tube Collected Yes Invalid Interpretation Code [facility] Comment on above: Performed By: #### 1 [id number], 77321665, 7040425, 2006112124, [id number] ####[facility] (DEFAULT)[address] [place] [address] 59883 UA Jjuqz5ni 08-22-2020 UA Amorph. Rare [facility] Comment on above: Order Comment: Urina lysis Microscopic order added on by [employer] Expert Rules system. Performed By: #### 5 [id number], [id number] ####[facility] (DEFAULT)[address] [place] [address] 09732 UA Bacteria Trace [facility] Comment on above: Order Comment: Urina lysis Microscopic order added on by [employer] system. Performed By: #### 5 [id number], [id number] ####[facility] (DEFAULT)[address] [place] [address] UA RBC 0-2 [facility] Comment on above: Order Comment: Urina lysis Microscopic order added on by [employer] system. Performed By: #### 5 [id number], [id number] ####[facility] (DEFAULT)[address] [place] [address] 50282 UA Squam Epi Few [facility] Comment on above: Order Comment: Urina lysis Microscopic order added on by [employer] system. Performed By: #### 5 4395438, [id number] ####[facility] (DEFAULT)[address] [place] [address] 82674 UA WBC 0-2 [facility] Comment on above: Order Comment: Urina lysis Microscopic order added on by [employer] system. Performed By: #### 5 [id number], [id number] ####[facility] (DEFAULT)[address] [place] [address] 15881 UA w Culture if Ind Standard on 08-22-2020 Breakpoint UA Normal [facility] Comment on above: Performed By: #### 5 [id number], [id number] ####[facility] (DEFAULT)[address] [place] [address] 82865 Color (U) Yellow Normal [facility] Comment on above: Performed By: #### 5 [id number], [id number] ####[facility] (DEFAULT)[address] [place] [address] 28703 Culture? Not Indicated Invalid Interpretation Code [facility] Comment on above: Performed By: #### 5 [id number], [id number] ####[facility] (DEFAULT)[address] [place] [address] 44683 Glucose (U) [Mass/Vol] Negative Normal [facility] Comment on above: Performed By: #### 5 [id number], [id number] ####[facility] (DEFAULT)[address] [place] [address] 91131 Ketones Ql (U) TRACE Normal [facility] Comment on above: Performed By: #### 5 [id number], [id number] ####[facility] (DEFAULT)[address] [place] [address] 45045 Micro? Indicated Invalid Interpretation Code [facility] Comment on above: Performed By: #### 5 [id number], [id number] ####[facility] (DEFAULT)[address] [place] [address] 54086 UA Bilirubin Negative Normal [facility] Comment on above: Performed By: #### 5 [id number], [id number] ####[facility] (DEFAULT)[address] [place] [address] 69508 UA Blood Negative Normal NEGATIVE [facility] Comment on above: Performed By: #### 5 [id number], [id number] ####[facility] (DEFAULT)[address] [place] [address] 99618 UA Clarity CLEAR Normal CLEAR [facility] Comment on above: Performed By: #### 5 [id number], [id number] ####[facility] (DEFAULT)[address] [place] [address] UA Leuk Est TRACE Abnormal NEGATIVE [facility] Comment on above: Performed By: #### 5 [id number], [id number] ####[facility] (DEFAULT)[address] [place] [address] 81216 UA Nitrite Positive Abnormal NEGATIVE [facility] Comment on above: Performed By: #### 5 [id number], [id number] ####[facility] (DEFAULT)[address] [place] [address] UA pH 7.0 Normal 5-8 [facility] Comment on above: Performed By: #### 5 [id number], [id number] ####[facility] (DEFAULT)[address] [place] [address] UA Protein Negative Normal NEGATIVE [facility] Comment on above: Performed By: #### 5 [id number], [id number] ####[facility] (DEFAULT)[address] [place] [address] UA Spec Grav 1.020 Normal 1.001-1.035 [facility] Comment on above: Performed By: #### 5 [id number], [id number] ####[facility] (DEFAULT)[address] [place] [address] UA Urobilinogen 0.2 mg/dL Normal 0.2-1.0 [facility] Comment on above: Performed By: #### 5 [id number], [id number] ####[facility] (DEFAULT)[address] [place] [address] Urine Source Clean Catch Normal [facility] Comment on above: Performed By: #### 5 [id number], [id number] ####[facility] (DEFAULT)[address] [place] [address] [place].on 08-22-2020 Wet Mount. Send results to Dr. Rojas assistant guest services manager Negative for Trichimonas vaginalis. Negative for Yeast. Normal [facility] Comment on above: Performed By: #### 1 [id number] ####[facility] (DEFAULT)[address] [place] [address] Consent Formson 03-30-2020 Consent Forms [id number] 1 [id number] [place] [address] Provider Orderson 03-30-2020 Provider Orders [id number] [facility] Summaryon 03-25-2020 Coding Summary CODING DATE: 03/25/2020 FINAL [facility] STATUS: Home PAYOR: Commercial Insurance ADMIT [...] Gely Slade Date Saved: 03/25/2020 09:00 am [facility] 2018 Novel Coronavirus (CoVI D-19), TERESE LCon 03-24-2020 SARS-CoV-2 (COVID-19) RNA TERESE+probe Ql (Unsp spec) Not detected Invalid Interpretation Code Not Detected [facility] Comment on above: Order Comment: [id number] [phone] Result Comment: This nucleic acid amplification test was developed and its performance characteristics determined by [employer]. Nucleic acid amplification tests include PCR and [...] this assay. Performed At: [facility] [address] [facility] [place], [place] [id number] Iram Calvillo [facility] Ph:[phone] Performed By: #### 6 [id number] ####[facility] (DEFAULT)[address] [place] [address] Coding Summaryon 03-01-2020 Coding Summary CODING DATE: 03/01/2020 FINAL [facility] STATUS: Home PAYOR: Commercial Insurance ADMIT [...] Slade Date Saved: 03/01/2020 09:51 am Normal [facility] Vital Signs Date Time Vital Sign Value Performing Clinician Facility 03-27-2023 10:03-0500 Blood Pressure Location ELPIDIO HENSON [facility] 03-27-2023 10:03-0500 Body temperature 97.16 [degF] ELPIDIOIWONA HENSON [facility] 03-27-2023 10:03-0500 Diastolic blood pressure 84 mm[Hg] ELPIDIOIWONA HENSON [facility] 03-27-2023 10:03-0500 Heart rate 74 /min ELPIDIO NATIVIDAD [facility] 03-27-2023 10:03-0500 Systolic blood pressure 128 mm[Hg] ELPIDIO HENSON [facility] [place] Encounters Encounter Date Encounter Type Care Provider Facility Start: 10-08-2023 ambulatory Eamon Garcia acility:[facility] Start: 08-26-2023 End: 08-26-2023 ambulatory SUMEET VISHAL Not Available Start: 07-16-2023 End: 07-17-2023 ambulatory ELPIDIO HENSON Facility:[facility] Start: 07-16-2023 End: 07-16-2023 Patient encounter procedure ELPIDIO HENSON [facility] Start: 06-06-2023 End: 06-06-2023 ambulatory KATLYN MITCHELL Not Available Start: 05-28-2023 End: 05-28-2023 ambulatory KATLYN PAULA Not Available Start: 05-02-2023 End: 05-03-2023 ambulatory Lowell MAYS Facility:[facility] Start: 05-02-2023 End: 05-02-2023 Patient encounter procedure Lowell MAYS [facility] Start: 04-23-2023 End: 04-23-2023 ambulatory SUMEET VISHAL Not Available Start: 04-18-2023 ambulatory Lowell MAYS Facility :CD:[id number] Start: 03-27-2023 End: 03-28-2023 ambulatory ELPIDIO HENSON Facility:[facility] Start: 03-27-2023 End: 03-27-2023 Patient encounter procedure ELPIDIO HENSON [facility] Start: 02-04-2023 ambulatory ELPIDIO HENSON Facility :[facility] Start: 11-26-2022 End: 11-26-2022 Emergency department patient visit [facility] Start: 01-23-2022 End: 01-23-[address] [...] adult dosage ELPIDIO NATIVIDAD [facility] 02-06-2002 hepatitis B vaccine, adult dosage ELPIDIO NATIVIDAD [facility] 01-07-2002 hepatitis B vaccine, adult dosage ELPIDIO NATIVIDAD [facility] 01-07-2002 measles, mumps and rubella virus vaccine [facility]IO [facility] [facility] 09-03-1988 diphtheria, tetanus toxoids and acellular pertussis vaccine ELPIDIO NATIVIDAD [facility] 09-03-1988 Hib, unspecified formulation ELPIDIO NATIVIDAD [facility] 12-13-1986 diphtheria, tetanus toxoids and acellular pertussis vaccine ELPIDIO NATIVIDAD [facility] 12-12-1985 measles, mumps and rubella virus vaccine ELPIDIO NATIVIDAD [facility] 1984 diphtheria, tetanus toxoids and acellular pertussis vaccine ELPIDIO HENSON [facility] 1984 diphtheria, tetanus toxoids and acellular pertussis vaccine ELPIDIO HENSON [facility] 1984 diphtheria, tetanus toxoids and acellular pertussis vaccine ELPIDIO HENSON [facility] Payers Date Payer Category Payer Unknown [id number] 2022 Self-pay 2022 Unknown [id number] 1984 Unknown [id number] 2.16.84 0.1.959068.3.579.2.593 1984 Unknown [id number] 2.16.84 0.1.950027.3.579.2.593 1984 Unknown [id number] 2.16.84 0.1.520999.3.579.2.593 1984 Unknown [id number] 2.16.8 40.1.088909.3.579.2.173 1984 Unknown [id number] 2.16.84 0.1.046598.3.579.2.1259 1984 Unknown [id number] 2.16.840 .1.172028.3.579.2.1259 1984 Unknown [id number] 2.16.8 40.1.272263.3.579.2.727 1984 Unknown [id number] 2.16.8 40.1.158521.3.579.2.727 1984 Unknown [id number] 2.16.8 40.1.798755.3.579.2.727 1984 Unknown [id number] 2.16.8 40.1.172510.3.579.2.727 1984 Unknown [id number] 2.16.84 0.1.228329.3.579.2.1259 1984 Unknown [id number] 2.16.84 0.1.273282.3.579.2.1259 1984 Unknown [id number] 2.16.84 0.1.079894.3.579.2.1259 1984 Unknown [id number] 2.16.84 0.1.128748.3.579.2.1259 1959 Unknown [id number] 1959 Unknown [id number] Unknown [id number] 2.16.8 40.1.475372.3.579.2.531 Social History Date Type Detail Facility Start: 03-27-2023 Tobacco smoking status Never [facility] Sex Assigned At Female [facility] Functional Status Date Assessment Result Facility 05-02-2023 Functional Status N/A [facility] 03-27-2023 Functional Status N/A [facility] Clinical Notes 03-22-2020 to 05-02-2023 Note Date & Type Note Facility 05-02-2023 Note [id number] [facility] 05-02-2023 Note Cystoscopy with Uret hral [...] you have a fever over 100 degrees [facility] 05-02-2023 Hospital Discharg e instructions Patient [...] Up Care 04/30/2023 10:52:47 With:ELPIDIO HENSON Address: [address] [place] [address] [facility] (1) When:6 weeks Comments:Call for followup appointment [facility] 03-27-2023 [facility] Discharg e instructions Patient Education 03/27/2023 [...] including vitamins, herbs, eye drops, creams, and sxea-zsk-uydczeo medicines. Any problems you or family members [...] provider tells you to take them. Taking eggj-ayd-ifyfrru medicines, vitamins, herbs, and supplements. Tests You [...] Follow these instructions at home: Medicines Take kovl-uyt-hwatpne and prescription medicines only as told by [...] Document Reviewed: 12/02/2020 Elsevier Patient Education 2022 [employer]. 03/27/2023 10:54:11 Overactive Bladder, Adult Overactive Bladder, [...] your health care provider. General instructions Take lkdb-auz-ydudvpb and prescription medicines only as told by [...] provider. Document Revised: 01/09/2021 Document Reviewed: 01/09/2021 [employer] Patient Education 2022 [employer]. Follow Up Care 02/04/2023 08:51:15 With:NATIVIDAD LOPEZ, ELPIDIO Rodriguez, URL Address: [facility] [address] [facility] [place] [address] [phone] When: Unknown Comments:sched cysto/poss UD [facility] 02-15-2021 Note Education Materials Infectious Disease [...] Reviewed: 04/07/2020 Elsevier Patient Education ? 2019 [employer] COVID-19: How to Protect Yourself and Others Know how it spreads ? There is currently no vaccine to prevent coronavirus disease 2019 (COVID-19). ? The best way to prevent illness is to avoid being exposed to this virus. ? The virus is thought to spread mainly from jtghop-tt-ghxcpo. ? Between people who are in close [...] are not readily available, use a hand physical trainer that contains at least 60% alcohol. Cover [...] are at higher risk of getting very sick.www.cdc.gov/coronavirus/-ncov/gqaj-jxemc-ivrckvxlngy/ phoezv-ud-evqqxm-risk.html Cover your mouth and nose with a [...] available, clean your hands with a hand physical trainer that contains at least 60% alcohol. Clean and disinfect ? Clean AND disinfect frequently touched surfaces daily. This includes tables, doorknobs, light switches, countertops, handles, desks, phones, keyboards, toilets, faucets, and sinks. www.cdc.gov/coronavirus/2019-nc ov/urhaqts-elybjam-jaui/disinfe shcnf-bkdr-oouj.html ? If surfaces are dirty, clean them: [...] provider. Document Revised: 01/14/2020 Document Reviewed: 11/12/2019 [employer] Patient Education ? 2019 [employer]. COVID-19 Frequently Asked Questions COVID-19 (coronavirus disease) is an infection that is caused by a virus (more content not included)... [facility] 08-22-2020 Note Education Materials Obstetrics and [...] this condition includes: ? Antibiotic medicine. ? Jgql-eec-zavuqfg medicines to treat discomfort. ? Drinking enough [...] these instructions at home: Medicines ? Take ostl-bsd-xeckdvr and prescription medicines only as told by [...] provider. This i (more content not included)... [facility] 03-22-2020 Note Nasal swab performed without complication. Patient tolerated well. Education given. Patient verbalized understanding. [Electronically Signed on: 03/22/2020 14:52 EST] Millicent Galdamez RN [Verified on: 03/22/2020 14:52 EST] iMllicent Galdamez RN [facility] Evaluation + Plan note No data available for this section [facility] Evaluation + Plan note Future Appointments Appointment Date:07/16/2023 09:00:00 AM Scheduled Provider:ELPIDIO HENSON PA-C Location:[facility] Appointment Type:URO Office Visit [facility] Hospital Discharge instructions No data available for this section [facility] Progress note No data available for this section [facility] Summary Purpose Family History No Family [...] section and content) DATE CREATED AUTHOR 02/28/2021 [facility] DATE CREATED AUTHOR AUTHOR'S ORGANIZ ATION 02/04/2022 [facility] DATE CREATED AUTHOR AUTHOR'S ORGANIZ ATION 11/26/2022 [facility] DATE CREATED AUTHOR AUTHOR'S ORGANIZ ATION 05/29/2023 [facility] EPIC DATE CREATED AUTHOR AUTHOR'S ORGANIZ ATION 07/18/2023 [facility] DATE CREATED AUTHOR AUTHOR'S ORGANIZ ATION 08/27/2023 [facility] EPIC DATE CREATED AUTHOR AUTHOR'S ORGANIZ ATION 10/09/2023 [facility] Patient Care team informatio n (unrecognized section and content) Personnel Name: Sumeet VÁSQUEZ DO Robson Address: Address: [address] [place]ter[place], [address] Personnel Name: SAVANNAH RODRIGUEZ MD Address: Address: [address] [place] [address] Personnel Name: SAVANNAH RODRIGUEZ MD Address: Address: [address] [place] [address] FOR RECORDS PERTAINING TO PATIENTS WHO ARE [...] BE BASED ON THE PRIMARY CLINICAL RECORDS. [facility]. provides no warranty or guarantee of the accuracy or completeness of information in this document.
[2023-11-05 09:30] LABS: BUN Creatinine Ratio 12.5; Calcium 9.1 mg/dL (8.5-10.1); Carbon Dioxide 27.9 mmol/L (21.0-32.0); Chloride 104 mmol/L (98-107); Estimated GFR (African America >60 (>=60); Estimated GFR (Non-African Ame >60 (>=60); Glucose 94 mg/dL (74-106); Potassium 3.9 mmol/L (3.5-5.1); Sodium 141 mmol/L (136-145); Thyroid Stimulating Hormone 3.938 uIU/mL (0.358-3.740)
[2023-11-06 08:12] LABS: Luteinizing Hormone(LH) 7.8 mIU/mL (.)
[2023-11-06 12:09] LABS: FSH 6.4 mIU/mL (.)
[2023-11-06 15:09] LABS: ACTH, Plasma 94.1 pg/mL (7.2-63.3)
[2023-11-10 20:11] LABS: IGF-1 159 ng/mL (79-259)
== END 2023-11-05 08:20 | disposition home or self-care (01) ==
PROVIDERS: Visit Provider Internal Medicine
DX: D35.2 Benign neoplasm of pituitary gland (principal); E22.1 Hyperprolactinemia
CPT/HCPCS: 36415; 80048; 82024; 82533; 83001; 83002; 83003; 84146; 84305; 84439; 84443

== ENCOUNTER 2024-08-31 21:31 | Outpatient (REF) | payer OTHER, SELFPAY ==
[2024-09-03 11:13] LABS: Age Gdln ACOG Testing Note (.); HPV Aptima Negative (Negative); IGP, Aptima HPV, rfx 16/18,45 Note (.)
== END 2024-08-31 21:32 | disposition home or self-care (01) ==
LOC: LAB 21:31
PROVIDERS: Visit Provider Obstetrics & Gynecology
DX: Z01.419 Encounter for gynecological examination (general) (routine) without abnormal findings (principal)
CPT/HCPCS: 87624; 88175

== ENCOUNTER 2024-09-15 08:49 | Outpatient (OUT) | payer OTHER, SELFPAY ==
--- NOTE | 2024-09-15 08:52 | MM_ITS ---
Patient Name: TALHA SINGLETON MR#: [id number] : 1985 Exam Date: 09/15/2024 Ordering Doctor: DR VELMA RODGERS . RADIOLOGY REPORT PROCEDURE: MM TOMOSYNTHESIS SCREENING BI COMPARISON: None. INDICATIONS: Screening Calculator Name NCI Breast Cancer Risk Assessment Tool 5 Year Breast Cancer Risk 0.40% Lifetime Breast Cancer Risk 6.70% Personal Breast Cancer No Personal Ovarian Cancer No Treatments None Family Cancers Grandmother-maternal with breast cancer at age 60; Grandmother-maternal with ovarian cancer at age 65. LOCATION: [facility] BREAST COMPOSITION: The breasts are almost entirely fatty. FINDINGS: RIGHT BREAST: ASYMMETRY within the lateral aspect of the right breast 5.1 cm from the nipple measuring 11 millimeters in greatest dimension. Follow-up with spot compressed views of the right breast and ultrasound if necessary is recommended paired Benign-appearing 1 of the along the right chest wall. LEFT BREAST: No significant suspicious finding. DIAGNOSTIC CATEGORY 0--INCOMPLETE: NEED ADDITIONAL IMAGING EVALUATION. RECOMMENDATIONS: ADDITIONAL MAMMOGRAPHIC VIEWS REQUIRED: RIGHT BREAST - spot compressed craniocaudal and mediolateral oblique views of the lateral aspect of the right breast are recommended. ULTRASOUND: RIGHT BREAST PLEASE NOTE: A NORMAL MAMMOGRAM DOES NOT EXCLUDE THE POSSIBILITY OF BREAST CANCER. A CLINICALLY SUSPICIOUS PALPABLE LUMP SHOULD BE BIOPSIED. Dictated by: Luis Goins MD on 09/15/2024 at 11:05 Approved by: Luis Goins MD on 09/15/2024 at 11:19
== END 2024-09-15 08:50 | disposition home or self-care (01) ==
LOC: MAMMO 08:49
PROVIDERS: Visit Provider Obstetrics & Gynecology
DX: Z12.31 Encounter for screening mammogram for malignant neoplasm of breast (principal); Z80.3 Family history of malignant neoplasm of breast; Z80.41 Family history of malignant neoplasm of ovary; R92.8 Other abnormal and inconclusive findings on diagnostic imaging of breast
CPT/HCPCS: 77063; 77067